=== PATIENT | male | born 1985 | race Caucasian/White ===

== ENCOUNTER 2018-11-11 11:03 | Inpatient (IN) | payer MEDICARE, OTHER, SELFPAY ==
[2018-11-11] VITALS (13 sets, daily range): BP systolic 114–144; BP diastolic 66–79; PULSE 103–118; RESP 16–26; TEMP 36.9–37.2; O2SAT 92–100; BMI 40.6; BMI 40.7; BMI 46.9
--- NOTE | 2018-11-11 11:25 | EKG12_ITS ---
Test Reason : Blood Pressure : / mmHG Vent. Rate : 104 BPM Atrial Rate : 104 BPM P-R Int : 142 ms QRS Dur : 078 ms QT Int : 328 ms P-R-T Axes : 068 076 079 degrees QTc Int : 431 ms Sinus tachycardia Nonspecific T wave abnormality Abnormal ECG Confirmed by ELIJAH RAE, ROMI ([id number]), society editor MACKENZIE OLEARY ([id number]) on 11/15/2018 10:58:55 AM Referred By: JUAN Confirmed By:ROMI NAVA MD
--- NOTE | 2018-11-11 11:30 | NURSING ---
NO OLD EKGS
[2018-11-11 12:30] LABS: Absolute Lymphocyte Count 1.64 X10^3/ul (0.83-4.51); Absolute Neutrophil Count 13.4 X10^3/uL (2.0-7.7); Basophil# 0.04 X10^3/uL; Basophil% 0.2 % (0-1); Eosinophil# 0.02 X10^3/uL; Eosinophils% 0.1 % (0-5); Hemoglobin 15.3 g/dl (13.0-16.5); Lymphocyte # 1.64 X10^3/ul (4.0); Lymphocyte % 10.1 % (19-41); Mean Corp Hgb Conc 33.3 g/gl (32-36); Mean Corpuscular Hgb 28.3 pg (27.0-32.0); Mean Platelet Vol. 11.2 fl (6.2-12.0); Monocyte# 1.14 X10^3/uL; Neutrophil # 13.36 X10^3/uL (2.7-7.7); Neutrophil % 82.4 % (47-70); Platelet Count 226 K/mm3 (150-450); RBC Distribution Width CV 15.6 % (11.6-14.6); RBC Distribution Width SD 48.3 fl (35.1-43.9); Red Blood Count 5.41 M/mm3 (4.6-6.2); White Blood Count 16.2 K/mm3 (4.4-11.0)
[2018-11-11 12:32] LABS: POSITIVE COUNT NO; POSITIVE DIFFERENTIAL NO; POSITIVE MORPHOLOGY NO
--- NOTE | 2018-11-11 12:47 | ED.VIS.GEN ---
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 He presents with redness to his left foot, leg with erythema medial aspect of the left thigh to groin. He reports documented temperature of 103.0 ?F. He did report chills. They were not shaking chills. He denies HEENT symptoms. He denies cardiac or respiratory symptoms. He denies vomiting or diarrhea. He does self cath. He is not diabetic. He did not note any lesions between his toes. Does have sores on his leg, however. 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 Denies: Sweats, Weight loss Eyes: Denies: Visual changes - bilaterally, Blurred Vision - bilaterally, Diplopia ENT: Denies: Rhinorrhea, Sore throat Cardiovascular: Denies: Chest pain, Palpitations, Heart racing Respiratory: Denies: Dyspnea, Cough, Dyspnea on exertion, Orthopnea, Paroxysmal nocturnal dyspnea Gastrointestinal: Denies: Abdominal pain, Nausea, Vomiting, Diarrhea, Melena, Hematochezia Genitourinary: Reports: - - Recent self caths. Denies: Dysuria, Hematuria, Frequency Musculoskeletal: Reports: Swelling - Left leg. Denies: Myalgias, Arthralgias, Neck pain, Back pain, Extremity Pain Skin: Reports: Rash, Wounds Neurological: Denies: Headache, Weakness, Numbness Hematologic: Denies: Easy bruising, Easy bleeding Allergy: Denies: Uticaria Physical Exam Vital Signs/Narrative: Vital Signs Temp Pulse Resp BP Pulse Ox 11/11/18 11:52 98.8 F 96 11/11/18 11:06 98.9 F 110 H 18 130/79 H 99 Inital Vital Signs reviewed: Yes General: Well nourished, Well developed, No Acute Distress Head: Normocephalic, Atraumatic Eyes: Perrl, EOMI ENT: Moist mucous membranes, No rhinorrhea Neck: Supple, Nontender Cardiovascular: Regular rhythm, No murmurs, Normal S1, Normal S2, Tachycardia Respiratory: No distress, CTA bilaterally, Chest nontender Abdomen: Soft, Nontender, Nondistended, Normal bowel sounds Back: Nontender, Normal Inspection Extremities: Nontender, No edema, - - There is swelling of the left lower extremity compared to the right. There is evidence of cellulitis involving the left leg and foot with red this medial aspect of the left thigh. There is shotty lymph nodes noted. There is no tenderness since he is a sensate secondary to cavernous spinal lesion that required operative intervention. There are sores on his leg posterior side and heel. Skin: Normal color, No rash Neurological: Alert, Oriented x3, Cranial nerves II-XII grossly intact, Normal Strength, Normal Sensation Psychological: Normal affect, Normal Mood Diagnostic/Tx/Re-eval Laboratory Results 11/11/18 11/11/18 11/11/18 12:15 12:15 12:15 WBC 16.2 H RBC 5.41 Hgb 15.3 Hct 46.0 MCV 85.0 MCH 28.3 MCHC 33.3 RDW 15.6 H RDW Differential 48.3 H Plt Count 226 MPV 11.2 Immature Gran % (Auto) 0.200 Neut % (Auto) 82.4 H Lymph % (Auto) 10.1 L [place] % (Auto) 7.0 Eos % (Auto) 0.1 Baso % (Auto) 0.2 Absolute Neuts (auto) 13.4 H Absolute Lymphs (auto) 1.64 Total Counted Not Reportable PT Cancelled INR Cancelled APTT Cancelled Sodium Cancelled Potassium Cancelled Chloride Cancelled Carbon Dioxide Cancelled Anion Gap Cancelled BUN Cancelled Creatinine Cancelled Estim Creat Clear Calc Cancelled Est GFR (MDRD) Af Amer Cancelled Est GFR (MDRD) Non-Af Cancelled BUN/Creatinine Ratio Cancelled Glucose Cancelled Lactic Acid Calcium Cancelled Total Bilirubin Cancelled AST Cancelled ALT Cancelled Alkaline Phosphatase Cancelled Total Protein Cancelled Albumin Cancelled Globulin Cancelled Albumin/Globulin Ratio Cancelled Urine Color Urine Clarity Urine pH Ur Specific [place] Urine Protein Urine Glucose (UA) Urine Ketones Urine Occult Blood Urine Nitrite Urine Bilirubin Urine Urobilinogen Ur Leukocyte Esterase Urine RBC Urine WBC Ur Squamous Epith Cells Urine Bacteria Urine Mucus 11/11/18 11/11/18 11/11/18 12:15 12:45 14:50 WBC RBC Hgb Hct MCV MCH MCHC RDW RDW Differential Plt Count MPV Immature Gran % (Auto) Neut % (Auto) Lymph % (Auto) [place] % (Auto) Eos % (Auto) Baso % (Auto) Absolute Neuts (auto) Absolute Lymphs (auto) Total Counted PT INR APTT Sodium Potassium Chloride Carbon Dioxide Anion Gap BUN Creatinine Estim Creat Clear Calc Est GFR (MDRD) Af Amer Est GFR (MDRD) Non-Af BUN/Creatinine Ratio Glucose Lactic Acid Cancelled 1.0 Calcium Total Bilirubin AST ALT Alkaline Phosphatase Total Protein Albumin Globulin Albumin/Globulin Ratio Urine Color Yellow Urine Clarity Sl. Cloudy Urine pH 5.0 Ur Specific [place] 1.015 Urine Protein Negative Urine Glucose (UA) Normal Urine Ketones 5 H Urine Occult Blood 150 H Urine Nitrite Negative Urine Bilirubin Negative Urine Urobilinogen 1 H Ur Leukocyte Esterase 500 H Urine RBC 0-5 SEEN Urine WBC 0-5 SEEN Ur Squamous Epith Cells 0 SEEN Urine Bacteria 1+ Urine Mucus 0 SEEN 11/11/18 11/11/18 14:50 14:50 WBC RBC Hgb Hct MCV MCH MCHC RDW RDW Differential Plt Count MPV Immature Gran % (Auto) Neut % (Auto) Lymph % (Auto) [place] % (Auto) Eos % (Auto) Baso % (Auto) Absolute Neuts (auto) Absolute Lymphs (auto) Total Counted PT 15.2 H INR 1.2 APTT 30.0 Sodium 135 L Potassium 3.7 Chloride 102 Carbon Dioxide 26.0 Anion Gap 7 BUN 7 Creatinine 0.40 L Estim Creat Clear Calc 282.92 Est GFR (MDRD) Af Amer 314 Est GFR (MDRD) Non-Af 259 BUN/Creatinine Ratio 17.5 Glucose 139 H Lactic Acid Calcium 8.5 Total Bilirubin 0.60 AST 29 ALT 87 H Alkaline Phosphatase 120 H Total Protein 7.1 Albumin 3.1 L Globulin 4.0 Albumin/Globulin Ratio 0.8 L Urine Color Urine Clarity Urine pH Ur Specific [place] Urine Protein Urine Glucose (UA) Urine Ketones Urine Occult Blood Urine Nitrite Urine Bilirubin Urine Urobilinogen Ur Leukocyte Esterase Urine RBC Urine WBC Ur Squamous Epith Cells Urine Bacteria Urine Mucus - Medical Decision Making With documented fever of 103.0 degrees at home, tachycardia and evidence of infection sepsis work-up was undertaken including lactate and blood cultures. He was started on vancomycin for strep and staph coverage. Patient has a 22-gauge Angiocath in place. Unable to draw blood. Femoral pulses not palpable right or left side. Reluctant to use left side because of extensive cellulitis. Attempt to place right subclavian line was unsuccessful. Buried needle to help and only able to hit the clavicle. Unable to go under clavicle. Subclavian was aborted. Using ultrasound guidance to visualize IJ was unsuccessful. Vessel very small and easily compressible. Ultrasound was used to obtain blood from the right femoral artery/vein. Line was not placed because of concern for infection and because the artery lies anterior the vein. Patient has sepsis secondary to cellulitis. Hospitalist been called for admission. PICC line nurse will be in this evening at approximately [address] line. Patient states she has had PICC line placed in the past when he is required admission. ED Disposition - Plan for ED Patient: Disposition: Acute Care Hospital [facility] Diagnosis: Cellulitis of left lower extremity, Sepsis, Paraplegia T7, Hyperglycemia Referrals: NOT,DEFINED [NON-STAFF] -
[2018-11-11 12:51] LABS: Mucous, Urine 0 SEEN /hpf (<or=2+); Squamous Epithelial Cells - UA 0 SEEN /hpf (0-5)
[2018-11-11 13:06] LABS: Color, Urine Yellow (Yellow); Glucose, Dipstick Normal (Normal); Ketone-Dipstick 5 mg/dl (Negative); Leukocyte Esterase-Dipstick 500 /ul (Negative); Nitrite-Dipstick Negative (Negative); Occult Blood-Urine 150 /ul (Negative); Protein-Dipstick Negative (Negative); Specific Gravity, Urine 1.015 (1.002-1.030); Urine Bilirubin Dipstick Negative (Negative); Urine Clarity Sl. Cloudy (Clear); Urine Urobilinogen 1 mg/dl (Normal)
[2018-11-11 13:15] LABS: Bacteria 1+ /hpf (None Seen); Red Blood Cells-Urine 0-5 SEEN /hpf (0-5); White Blood Cells 0-5 SEEN /hpf (0-5)
[2018-11-11 15:17] LABS: International Normalized Ratio 1.2; Prothrombin Time (Protime)PT. 15.2 SECONDS (11.7-14.9)
[2018-11-11 15:23] LABS: ALB/GLOB Ratio 0.8 RATIO (0.9-2.4); AST(SGOT) 29 U/L (15-37); Alanine Aminotransfer ALT/SGPT 87 U/L (16-61); Albumin, Serum 3.1 g/dL (3.2-5.0); Alkaline Phosphatase 120 U/L (45-117); Anion Gap 7 (5-15); BUN 7 mg/dL (7-18); BUN/Creat Ratio 17.5 RATIO (10-20); Calcium,Total 8.5 mg/dL (8.5-10.1); Chloride 102 mmol/L (98-107); EST Glomerular Filtration Rate 259 mL/min (>60); Est Glom Filt Rate - Afr Amer 314 mL/min (>60); Estimated Creatinine Clearance 282.92 ml/min; Glucose 139 mg/dL (74-106); Potassium 3.7 mmol/L (3.5-5.1); Protein, Total 7.1 g/dL (6.4-8.2); Sodium Level 135 mmol/L (136-145)
--- NOTE | 2018-11-11 16:03 | CASEMGMT ---
RN CM Assessment Introduced role of RN CM to patient, patient mother and sister in law at bedside.? Patient is alert, oriented and able?to participate in RN CM Assessment. ?Care providers, pharmacy, and demographics verified. Presentation: Redness to left foot w/erythema Lt thigh to groin, Fever. Decubitus Ulcer to coccyx. Admit Dx: LLE Cellulitis Re-Admit: No Barriers/Issues: Patient was going to the wound Ctr at [place] and then at [place]. States lost his insurance and last went to the wound ctr 1yr ago. Has been Paraplegic 9yrs. Self Caths. +smokes, denies ETOH/Illegal drug use. PCP: None, states would like a list Specialists: None [facility] Benef[facility]:?Yes LNOK: Sister in Law Susi Portillo # [phone] LW/HPOA: None, Declines offered information Living Arrangements:? [place] alone in a SS Home, no steps to enter ADL?s: WC Bound, Independent with all ADL's but does get assistance with getting dressed by [employer] 7days/week. 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 Natalio Briseno RNCM
--- NOTE | 2018-11-11 16:06 | PCM.HP.STD ---
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 The patient is a 33 year old M who presents the emergency room due to increasing left lower extremity redness and fever. He reports a T-max of 103 Fahrenheit at home. Patient has chronic lower extremity wounds. He also reports within the past 3 months he has developed a coccyx decubitus ulcer. He reports it had formerly healed up but he is no longer following with wound center due to no insurance coverage. Patient reports that his left lower extremity redness has significantly worsened over the past few days. He denies any known drainage from his wounds. He has a history of paraplegia secondary to cavernous spine lesion. He has been paraplegic for 9 years. He does live alone and reports he manages well. He denies other medical history. Past Medical History Past Medical History (Chronic Problems): Chronic Problems 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) Allergies No Known Allergies Allergy (Verified 11/11/18 11:08) Home Medications: Ambulatory Orders Medication Instructions Recorded NK 11/11/18 Surgical History: - - Spine surgery Psychiatric History: No pertinent psych hx Lives: Alone Smoking Status: Current every day smoker Tobacco Use: Cigarettes Alcohol: None Drugs: None - *Family History Maternal History Items: Hypertension Paternal History Items: - - Denies known paternal medical history including cardiac history. Review of Systems Constitutional: Reports: Chills, Fever HEENT: Denies: Head Aches, Sinus Congestion, Sinus Drainage Cardiovascular: Reports: Edema - LLE. Denies: Chest Pain, Palpitations Respiratory: Denies: Cough, Shortness of breath at rest, Sputum production Gastrointestinal: Denies: Abdominal Pain, Constipation, Diarrhea, Nausea, Vomiting Genitourinary: Reports: - - Self-caths. Denies: Dysuria, Hematuria, Incontinence Musculoskeletal: Denies: Joint Pain, Joint Tenderness Skin: Reports: - - Chronic lower extremity wounds, bilateral ischial wounds. Left lower extremity. Psychiatric: Denies: Anxiety, Depression, Homicidal Ideations, Suicidal Ideations Hematologic/ Lymphatic: Denies: Easy Bruising, Easy Bleeding VTE Information - Inpt Only VTE Present on Admission: No VTE Mechan Device Prophylaxis: None VTE Pharm Prophylaxis ordered?: Yes Patient Problems: Active and Suspected Problems Cellulitis of left lower extremity (Acute) Sepsis (Acute) Hyperglycemia (Acute) - Physical Exam General: Alert, Oriented x3, Cooperative HEENT: Atraumatic, PERRLA, EOMI, Normocephalic Neck: Supple, No JVD, Negative Carotid Bruits Lungs: Clear to auscultation, Diminished Cardiovascular: Regular Rhythm, Normal S1, Normal S2, No murmurs, Tachycardic Abdomen: Bowel Sounds Present, Soft, Non Tender, Non-Distended, Obese Extremities: No clubbing, No cyanosis, Capillary Refill Less than 3 Seconds, Edema - LLE, non-pittin Skin: - - Left lower extremity diffuse erythema from foot/ankle extending up the back of the thigh to bottom of buttock area. Multiple wounds including right lateral ankle, left lateral calf, left heel and bilateral ischial wounds. These do not appear acutely infected or necrotic. Musculoskeletal: No Tenderness to Palpation of Joints or Extremities Neurological: Cranial nerves II-XII grossly intact, Neuro grossly intact, - - Chronic paraplegia. Psych/Mental Status: Normal Affect, Appropriate Vital Signs Temp Pulse Resp BP Pulse Ox 99 F 106 H 26 H 131/66 H 96 11/11/18 15:54 11/11/18 15:39 11/11/18 15:39 11/11/18 15:39 11/11/18 15:39 Oxygen Delivery Method Room Air Weight: 300 lb Body Mass Index (BMI) 40.6 Laboratory Tests Past 24 Hrs 11/11/18 11/11/18 11/11/18 12:15 12:15 12:15 WBC 16.2 H RBC 5.41 Hgb 15.3 Hct 46.0 MCV 85.0 MCH 28.3 MCHC 33.3 RDW 15.6 H RDW Differential 48.3 H Plt Count 226 MPV 11.2 Immature Gran % (Auto) 0.200 Neut % (Auto) 82.4 H Lymph % (Auto) 10.1 L [place] % (Auto) 7.0 Eos % (Auto) 0.1 Baso % (Auto) 0.2 Absolute Neuts (auto) 13.4 H Absolute Lymphs (auto) 1.64 Total Counted Not Reportable PT Cancelled INR Cancelled APTT Cancelled Sodium Cancelled Potassium Cancelled Chloride Cancelled Carbon Dioxide Cancelled Anion Gap Cancelled BUN Cancelled Creatinine Cancelled Estim Creat Clear Calc Cancelled Est GFR (MDRD) Af Amer Cancelled Est GFR (MDRD) Non-Af Cancelled BUN/Creatinine Ratio Cancelled Glucose Cancelled Lactic Acid Calcium Cancelled Total Bilirubin Cancelled AST Cancelled ALT Cancelled Alkaline Phosphatase Cancelled Total Protein Cancelled Albumin Cancelled Globulin Cancelled Albumin/Globulin Ratio Cancelled Urine Color Urine Clarity Urine pH Ur Specific [place] Urine Protein Urine Glucose (UA) Urine Ketones Urine Occult Blood Urine Nitrite Urine Bilirubin Urine Urobilinogen Ur Leukocyte Esterase Urine RBC Urine WBC Ur Squamous Epith Cells Urine Bacteria Urine Mucus 11/11/18 11/11/18 11/11/18 12:15 12:45 14:50 WBC RBC Hgb Hct MCV MCH MCHC RDW RDW Differential Plt Count MPV Immature Gran % (Auto) Neut % (Auto) Lymph % (Auto) [place] % (Auto) Eos % (Auto) Baso % (Auto) Absolute Neuts (auto) Absolute Lymphs (auto) Total Counted PT INR APTT Sodium Potassium Chloride Carbon Dioxide Anion Gap BUN Creatinine Estim Creat Clear Calc Est GFR (MDRD) Af Amer Est GFR (MDRD) Non-Af BUN/Creatinine Ratio Glucose Lactic Acid Cancelled 1.0 Calcium Total Bilirubin AST ALT Alkaline Phosphatase Total Protein Albumin Globulin Albumin/Globulin Ratio Urine Color Yellow Urine Clarity Sl. Cloudy Urine pH 5.0 Ur Specific [place] 1.015 Urine Protein Negative Urine Glucose (UA) Normal Urine Ketones 5 H Urine Occult Blood 150 H Urine Nitrite Negative Urine Bilirubin Negative Urine Urobilinogen 1 H Ur Leukocyte Esterase 500 H Urine RBC 0-5 SEEN Urine WBC 0-5 SEEN Ur Squamous Epith Cells 0 SEEN Urine Bacteria 1+ Urine Mucus 0 SEEN 11/11/18 11/11/18 14:50 14:50 WBC RBC Hgb Hct MCV MCH MCHC RDW RDW Differential Plt Count MPV Immature Gran % (Auto) Neut % (Auto) Lymph % (Auto) [place] % (Auto) Eos % (Auto) Baso % (Auto) Absolute Neuts (auto) Absolute Lymphs (auto) Total Counted PT 15.2 H INR 1.2 APTT 30.0 Sodium 135 L Potassium 3.7 Chloride 102 Carbon Dioxide 26.0 Anion Gap 7 BUN 7 Creatinine 0.40 L Estim Creat Clear Calc 282.92 Est GFR (MDRD) Af Amer 314 Est GFR (MDRD) Non-Af 259 BUN/Creatinine Ratio 17.5 Glucose 139 H Lactic Acid Calcium 8.5 Total Bilirubin 0.60 AST 29 ALT 87 H Alkaline Phosphatase 120 H Total Protein 7.1 Albumin 3.1 L Globulin 4.0 Albumin/Globulin Ratio 0.8 L Urine Color Urine Clarity Urine pH Ur Specific [place] Urine Protein Urine Glucose (UA) Urine Ketones Urine Occult Blood Urine Nitrite Urine Bilirubin Urine Urobilinogen Ur Leukocyte Esterase Urine RBC Urine WBC Ur Squamous Epith Cells Urine Bacteria Urine Mucus Assessment/Plan All Active Problems Cellulitis of left lower extremity (Acute) Sepsis (Acute) Hyperglycemia (Acute) 1. Acute sepsis secondary to left lower extremity cellulitis in the context of multiple wounds-patient with temperature 103F prior to admission, tachycardia, leukocytosis. Urinalysis unremarkable. Left lower extremity with diffuse redness and chronic wounds. Obtain duplex ultrasound left lower extremity. Wound RN consult. IV vancomycin. Frequent position changes. 2. Multiple chronic wounds including bilateral ischial, right lateral ankle, left heel and left lateral calf-wound RN consult as noted above. Frequent position changes and offloading of heels. Previously followed with wound center and is now unable due to no insurance. Case management consult for further discharge planning. 3. 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 Morbid obesity-encouraged diet and lifestyle modifications. Nutrition consult. 5. Tobacco dependence-encourage smoking cessation. Nicotine gum PRN. DVT prophylaxis-Lovenox subcu This patient was seen by ONUR Potts under the supervision of Dr. Suarez.
--- NOTE | 2018-11-11 16:07 | NURSING ---
307 LLE CELLULITIS WHITE
[2018-11-11 17:52] LABS: Magnesium 2.1 mg/dL (1.6-2.6)
[2018-11-11 18:07] LABS: Hemoglobin A1c 7.6 % (4.2-6.3)
[2018-11-11] MEDS: 0.9% NaCl Peripheral Flush Adult/Peds IV (18:09)
[2018-11-11] MEDS: 0.9% Normal Saline 1,000 ML 125 ML IV (18:09)
--- NOTE | 2018-11-11 18:28 | VDLE_ITS ---
Reason For Study: Swelling RIGHT LEFT CFV is compressible, spontaneous, phasic, GSV is normal. competent and demonstrates normal CFV is compressible, spontaneous, phasic, augmentation. competent, and demonstrates normal augmentation. FV is compressible, spontaneous, phasic, competent and demonstrates normal augmentation. POP V is compressible, spontaneous, phasic, competent and demonstrates normal augmentation. T/P Trunk is compressible. PTV is compressible. LT PerV is compressible. Interpretation Summary There is no evidence of left lower extremity deep vein thrombosis. Left greater saphenous vein appears patent and compressible segmentally. Normal flow patterns right common femoral vein Ordering Physician: Yanni Suarez Performed By: Laury Gamez, JESSICA, RVT
--- NOTE | 2018-11-11 18:30 | PCM.RX.CS ---
Consult Pharmacy has been consulted to manage selected antiobiotic: Vancomycin Type of Consult: New start Suspected Infection: Skin/Soft tissue Labs: Sodium 135 mmol/L (136-145) L 11/11/18 14:50 Potassium 3.7 mmol/L (3.5-5.1) 11/11/18 14:50 Chloride 102 mmol/L (98-107) 11/11/18 14:50 Carbon Dioxide 26.0 mmol/L (21.0-32.0) 11/11/18 14:50 Anion Gap 7 (5-15) 11/11/18 14:50 BUN 7 mg/dL (7-18) 11/11/18 14:50 Creatinine 0.40 mg/dL (0.70-1.30) L 11/11/18 14:50 Est GFR (MDRD) Af Amer 314 mL/min (>60) 11/11/18 14:50 Est GFR (MDRD) Non-Af 259 mL/min (>60) 11/11/18 14:50 BUN/Creatinine Ratio 17.5 RATIO (10-20) 11/11/18 14:50 Glucose 139 mg/dL (74-106) H 11/11/18 14:50 Estimated Creatinine Clearance: 282 Goal Trough: 10-15 mcg/mL Pharmacy Plan for Drug Dosing: Pharmacy Service will continue to monitor and adjust dosing as required. Loading dose of 2000mg given in ED Calculated dose of 1750mg a12h to start 11/12 0000 to maintain trough level of 10-15 Trough ordered for 07/14 2330 Follow-Up Labs: Trough Vancomycin
[2018-11-11] MEDS: Enoxaparin 150 MG/ML Syringe SC (18:41)
--- NOTE | 2018-11-11 20:26 | NURSING ---
Amparo from [employer] here to place PICC line. When I reviewed pt's orders I saw no order to insert a PICC. Amparo and I discussed this and she also mentioned that in reading over pt's chart it was noted in physicians' reports that he originally had a temp of 103.0, had acute sepsis, and that blood cultures were pending. Amparo and I spoke with Dr. Bloom who was here on [facility]. Amparo mentioned that a central line is really contraindicated at this time based on the facts listed above and it is best to wait until there are negative blood cultures. She discussed putting in an extra peripheral line in case we would lose the #22 gauge that pt already has. Dr. Bloom felt this was reasonable so Amparo inserted one. Amparo also indicated that if they have trouble drawing labs in the am, we can call [facility] [employer] to have them draw. You can review Amparo's written documentation on [employer] form to verify above information.
[2018-11-12] VITALS (12 sets, daily range): BP systolic 133–147; BP diastolic 69–94; PULSE 90–132; RESP 16–18; TEMP 36.4–36.9; O2SAT 92–97
[2018-11-12] MEDS: 0.9% Normal Saline 1,000 ML 125 ML IV (04:37)
[2018-11-12] MEDS: Acetaminophen 325 MG Tablet 650 MG PO (05:34)
[2018-11-12] MEDS: Enoxaparin 150 MG/ML Syringe SC ×2 (05:38→16:37)
[2018-11-12 06:54] LABS: Absolute Lymphocyte Count 1.27 X10^3/ul (0.83-4.51); Absolute Neutrophil Count 7.6 X10^3/uL (2.0-7.7); Basophil# 0.02 X10^3/uL; Basophil% 0.2 % (0-1); Eosinophil# 0.07 X10^3/uL; Eosinophils% 0.7 % (0-5); Hemoglobin 13.9 g/dl (13.0-16.5); Lymphocyte # 1.27 X10^3/ul (4.0); Lymphocyte % 12.6 % (19-41); Mean Corp Hgb Conc 32.3 g/gl (32-36); Mean Corpuscular Hgb 27.5 pg (27.0-32.0); Mean Platelet Vol. 11.7 fl (6.2-12.0); Monocyte# 1.11 X10^3/uL; Neutrophil # 7.61 X10^3/uL (2.7-7.7); Neutrophil % 75.3 % (47-70); Platelet Count 209 K/mm3 (150-450); RBC Distribution Width CV 15.2 % (11.6-14.6); RBC Distribution Width SD 46.8 fl (35.1-43.9); Red Blood Count 5.06 M/mm3 (4.6-6.2); White Blood Count 10.1 K/mm3 (4.4-11.0)
[2018-11-12 06:56] LABS: POSITIVE COUNT NO; POSITIVE DIFFERENTIAL NO; POSITIVE MORPHOLOGY NO
[2018-11-12 07:15] LABS: Anion Gap 6 (5-15); BUN 6 mg/dL (7-18); BUN/Creat Ratio 12.2 RATIO (10-20); Calcium,Total 7.6 mg/dL (8.5-10.1); Chloride 102 mmol/L (98-107); Creatinine, Serum 0.49 mg/dL (0.70-1.30); EST Glomerular Filtration Rate 204 mL/min (>60); Est Glom Filt Rate - Afr Amer 247 mL/min (>60); Estimated Creatinine Clearance 230.95 ml/min; Glucose 139 mg/dL (74-106); Potassium 3.6 mmol/L (3.5-5.1); Sodium Level 135 mmol/L (136-145)
--- NOTE | 2018-11-12 11:01 | NURSING ---
wound photo: bilateral gluteal crease
--- NOTE | 2018-11-12 11:05 | NURSING ---
wound photo: left gluteal crease
--- NOTE | 2018-11-12 11:06 | NURSING ---
wound photo: right lateral ankle
--- NOTE | 2018-11-12 11:08 | NURSING ---
wound photo: left lateral lower leg
--- NOTE | 2018-11-12 11:09 | NURSING ---
wound photo: left lateral heel
[2018-11-12 12:39] LABS: Probe Check PASS; Staph aureus DNA By PCR POSITIVE (Negative)
[2018-11-12 12:40] LABS: M R Staph aureus DNA By PCR POSITIVE (Negative)
--- NOTE | 2018-11-12 14:10 | CASEMGMT ---
RN CM NOTE: Pt provided with list of local PCP's in network with Richardcassandra. Mario YUN RN CM
--- NOTE | 2018-11-12 14:35 | PN_ITS ---
<Dena Rich - Last Filed: 11/12/18 14:46> Patient Problems: Active and Suspected Problems Cellulitis of left lower extremity (Acute) Sepsis (Acute) Hyperglycemia (Acute) Subjective: Patient seen and examined. Left lower extremity redness improved. Denies fever, chills. - Physical Exam General: Alert, Oriented x3, Cooperative HEENT: Atraumatic, PERRLA, EOMI, Normocephalic Neck: Supple, No JVD, Negative Carotid Bruits Lungs: Clear to auscultation, Diminished Cardiovascular: Regular rate, Regular Rhythm, Normal S1, Normal S2, No murmurs Abdomen: Bowel Sounds Present, Soft, Non Tender, Non-Distended, Obese Extremities: No clubbing, No cyanosis, No edema, Capillary Refill Less than 3 Seconds Skin: - - Left lower extremity diffuse erythema from foot/ankle extending up the back of the thigh to bottom of buttock area. Multiple wounds including right lateral ankle, left lateral calf, left heel and bilateral gluteal crease wounds. These do not appear acutely infected or necrotic. Left lower extremity diffuse erythema improving. Musculoskeletal: No Tenderness to Palpation of Joints or Extremities Neurological: Cranial nerves II-XII grossly intact, Neuro grossly intact, - - Chronic paraplegia Psych/Mental Status: Normal Affect, Appropriate Vital Signs Temp Pulse Resp BP Pulse Ox 97.6 F L 101 H 16 141/85 H 97 11/12/18 14:23 11/12/18 14:23 11/12/18 14:23 11/12/18 14:23 11/12/18 14:23 Oxygen Delivery Method Room Air Weight: 346 lb 2.012 oz Body Mass Index (BMI) 46.9 Intake and Output for Last 24 Hours 11/10/18 11/11/18 11/12/18 23:59 23:59 23:59 Intake Total 3666 / 3666 Output Total 1375 / 1375 Balance 2291 / 2291 Microbiology Past 72 Hours 11/12/18 10:30 Gram Stain - Final Wound - Heel, Left 11/11/18 12:45 Urine Culture - Preliminary Urine, Clean Catch Staphylococcus species Laboratory Tests Past 24 Hrs 11/11/18 11/11/18 11/11/18 12:15 14:50 14:50 WBC RBC Hgb Hct MCV MCH MCHC RDW RDW Differential Plt Count MPV Immature Gran % (Auto) Neut % (Auto) Lymph % (Auto) [place] % (Auto) Eos % (Auto) Baso % (Auto) Absolute Neuts (auto) Absolute Lymphs (auto) Total Counted PT INR APTT Sodium 135 L Potassium 3.7 Chloride 102 Carbon Dioxide 26.0 Anion Gap 7 BUN 7 Creatinine 0.40 L Estim Creat Clear Calc 282.92 Est GFR (MDRD) Af Amer 314 Est GFR (MDRD) Non-Af 259 BUN/Creatinine Ratio 17.5 Glucose 139 H Hemoglobin A1c 7.6 H Lactic Acid 1.0 Calcium 8.5 Magnesium Total Bilirubin 0.60 AST 29 ALT 87 H Alkaline Phosphatase 120 H Total Protein 7.1 Albumin 3.1 L Globulin 4.0 Albumin/Globulin Ratio 0.8 L S.aureus Protein A PCR MRSA (PCR) 11/11/18 11/11/18 11/12/18 14:50 14:50 05:45 WBC 10.1 RBC 5.06 Hgb 13.9 Hct 43.0 MCV 85.0 MCH 27.5 MCHC 32.3 RDW 15.2 H RDW Differential 46.8 H Plt Count 209 MPV 11.7 Immature Gran % (Auto) 0.200 Neut % (Auto) 75.3 H Lymph % (Auto) 12.6 L [place] % (Auto) 11.0 H Eos % (Auto) 0.7 Baso % (Auto) 0.2 Absolute Neuts (auto) 7.6 Absolute Lymphs (auto) 1.27 Total Counted Not Reportable PT 15.2 H INR 1.2 APTT 30.0 Sodium Potassium Chloride Carbon Dioxide Anion Gap BUN Creatinine Estim Creat Clear Calc Est GFR (MDRD) Af Amer Est GFR (MDRD) Non-Af BUN/Creatinine Ratio Glucose Hemoglobin A1c Lactic Acid Calcium Magnesium 2.1 Total Bilirubin AST ALT Alkaline Phosphatase Total Protein Albumin Globulin Albumin/Globulin Ratio S.aureus Protein A PCR MRSA (PCR) 11/12/18 11/12/18 05:45 10:30 WBC RBC Hgb Hct MCV MCH MCHC RDW RDW Differential Plt Count MPV Immature Gran % (Auto) Neut % (Auto) Lymph % (Auto) [place] % (Auto) Eos % (Auto) Baso % (Auto) Absolute Neuts (auto) Absolute Lymphs (auto) Total Counted PT INR APTT Sodium 135 L Potassium 3.6 Chloride 102 Carbon Dioxide 27.0 Anion Gap 6 BUN 6 L Creatinine 0.49 L Estim Creat Clear Calc 230.95 Est GFR (MDRD) Af Amer 247 Est GFR (MDRD) Non-Af 204 BUN/Creatinine Ratio 12.2 Glucose 139 H Hemoglobin A1c Lactic Acid Calcium 7.6 L Magnesium Total Bilirubin AST ALT Alkaline Phosphatase Total Protein Albumin Globulin Albumin/Globulin Ratio S.aureus Protein A PCR POSITIVE H MRSA (PCR) POSITIVE H Medical Necessity - Tobacco Use Smoking Status: Current every day smoker Tobacco Use: Cigarettes Assessment/Plan All Active Problems Cellulitis of left lower extremity (Acute) Sepsis (Acute) Hyperglycemia (Acute) 1. Acute sepsis secondary to acute left lower extremity cellulitis in the context of multiple chronic wounds-patient with temperature 103F prior to admission, tachycardia, leukocytosis. Urinalysis unremarkable, UA with staph species low colony count. Left lower extremity with diffuse redness and chronic wounds. Duplex ultrasound left lower extremity pending. Wound RN consult. IV vancomycin and IV Zosyn. Frequent position changes. Wound culture left heel pending. Blood cultures pending. Continue dressing changes per wound RN orders. MSSA and MRSA PCR positive. 2. Multiple chronic wounds including bilateral gluteal crease, right lateral ankle, left heel and left lateral calf-wound RN consult as noted above. Frequent position changes and offloading of heels. Previously followed with wound center. Case management consult for further discharge planning. 3. 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 Morbid obesity-encouraged diet and lifestyle modifications. Nutrition consult. 5. Tobacco dependence-encourage smoking cessation. Nicotine gum PRN. 6. New diagnosis type 2 diabetes mellitus-hemoglobin A1c 7.6%. Accu-Cheks before meals at bedtime with sliding scale insulin. Begin metformin at discharge. DVT prophylaxis-Lovenox subcu This patient was seen by ONUR Potts under the supervision of Dr. Mandujano. <Gerry Mandujano - Last Filed: 11/12/18 17:22> Subjective: Seen and examined. The patient has a history of paraplegia for about 9 years after he had surgery of lumbar cavernous hemangioma. Patient also history of pilonidal sinus surgery? Patient has chronic ulcer of bilateral gluteal region. Wound inspected in the presence of wound nurse. K3.6. Temperature 103 Fahrenheit on admission. Objective: General: Alert, Oriented x3, Cooperative HEENT: Atraumatic, PERRLA, EOMI, Normocephalic Neck: Supple, No JVD, Negative Carotid Bruits Lungs: Clear to auscultation, air entry is diminished bilaterally in the lower half posteriorly secondary to obesity Cardiovascular: Regular rate, Regular Rhythm, Normal S1, Normal S2, No murmurs Abdomen: Bowel Sounds Present, Soft, Non Tender, Non-Distended, Obese Extremities: No clubbing, No cyanosis, No edema, Capillary Refill Less than 3 Seconds Skin: - Left lower extremity diffuse erythema, induration and thickening from foot/ankle extending up the back of the thigh to bottom of buttock area. Chronic ulcer over bilateral gluteal crease, has thin slough but mostly granulation tissue. Bilateral heel ulcer, decubitus ulcer. Musculoskeletal: Bilateral paraplegia. No sensation below baseline Neurological: Cranial nerves II-XII grossly intact, Neuro grossly intact, neurogenic bladder. Patient self catheterizes every 4 hours. No bladder filling station or or emptying. Patient minimally removes rectal stool. Psych/Mental Status: Normal Affect, Appropriate - Physical Exam Vital Signs Temp Pulse Resp BP Pulse Ox 97.6 F L 94 16 141/85 H 97 11/12/18 14:23 11/12/18 16:55 11/12/18 14:23 11/12/18 14:23 11/12/18 14:23 Oxygen Delivery Method Room Air Weight: 346 lb 2.012 oz Body Mass Index (BMI) 46.9 Intake and Output for Last 24 Hours 11/10/18 11/11/18 11/12/18 23:59 23:59 23:59 Intake Total 3666 / 3666 Output Total 1375 / 1375 Balance 2291 / 2291 Microbiology Past 72 Hours 11/12/18 10:30 Gram Stain - Final Wound - Heel, Left 11/11/18 12:45 Urine Culture - Preliminary Urine, Clean Catch Staphylococcus species Laboratory Tests Past 24 Hrs 11/11/18 11/11/18 11/12/18 12:15 14:50 05:45 WBC 10.1 RBC 5.06 Hgb 13.9 Hct 43.0 MCV 85.0 MCH 27.5 MCHC 32.3 RDW 15.2 H RDW Differential 46.8 H Plt Count 209 MPV 11.7 Immature Gran % (Auto) 0.200 Neut % (Auto) 75.3 H Lymph % (Auto) 12.6 L [place] % (Auto) 11.0 H Eos % (Auto) 0.7 Baso % (Auto) 0.2 Absolute Neuts (auto) 7.6 Absolute Lymphs (auto) 1.27 Total Counted Not Reportable Sodium Potassium Chloride Carbon Dioxide Anion Gap BUN Creatinine Estim Creat Clear Calc Est GFR (MDRD) Af Amer Est GFR (MDRD) Non-Af BUN/Creatinine Ratio Glucose Hemoglobin A1c 7.6 H Calcium Magnesium 2.1 S.aureus Protein A PCR MRSA (PCR) 11/12/18 11/12/18 05:45 10:30 WBC RBC Hgb Hct MCV MCH MCHC RDW RDW Differential Plt Count MPV Immature Gran % (Auto) Neut % (Auto) Lymph % (Auto) [place] % (Auto) Eos % (Auto) Baso % (Auto) Absolute Neuts (auto) Absolute Lymphs (auto) Total Counted Sodium 135 L Potassium 3.6 Chloride 102 Carbon Dioxide 27.0 Anion Gap 6 BUN 6 L Creatinine 0.49 L Estim Creat Clear Calc 230.95 Est GFR (MDRD) Af Amer 247 Est GFR (MDRD) Non-Af 204 BUN/Creatinine Ratio 12.2 Glucose 139 H Hemoglobin A1c Calcium 7.6 L Magnesium S.aureus Protein A PCR POSITIVE H MRSA (PCR) POSITIVE H POC Glucose 11/12/18 16:31 POC Glucose 198 H Assessment/Plan This patient was seen in conjunction with Dena STEIN. I have independently interviewed and examined the patient and reviewed pertinent history, examination findings, laboratory and plan of management. I have reviewed the note and agree with the documented findings with the few additional points. In brief, patient is admitted for abscess secondary to left lower extremity cellulitis with multiple chronic wounds on bilateral gluteal regions along with bilateral heel. Duplex ultrasound is ordered. Wound reviewed and discussed with the wound nurseVeronika. On IV vancomycin and Zosyn. MRSA PCR is positive. Paraplegia with chronic neurogenic bladder and bowel incontinence Morbid obesity I have discussed my assessment with Dena STEIN and orders have been reviewed. Code Visit Inpatient E&M: 23478 Subs Hosp L2
[2018-11-12 16:35] LABS: Bedside Glucose 198 mg/dL (70-110)
[2018-11-12] MEDS: Insulin Lispro 100 UNIT/ML INSULN.PEN SC ×2 (16:37→22:41)
--- NOTE | 2018-11-12 16:43 | PCM.HP.ID ---
Problem List (1) Cellulitis of left lower extremity Status: Acute Reason for Consult: cellulitis Consulted by: Dr. Mandujano History of Present Illness: The patient is a 33 year old M with paraplegia, chronic wounds, does not follow with doctors due to lack of insurance. Several days of LLE wound redness, pain, swelling. No pets licking his wound. No new contamination or trauma. Started to have fever/chills. Came to ED, started vanc, redness better, zosyn added. Full ROS performed and neg except as noted above. Straight cath at home, does not re-use caths. 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) Allergies/Adverse Reactions: Allergies No Known Allergies Allergy (Verified 11/11/18 11:08) Home Medications: Ambulatory Orders Medication Instructions Recorded NK 11/11/18 - Social History Tobacco Use: cigarettes Vital Signs Temp Pulse Resp BP Pulse Ox 97.6 F L 101 H 16 141/85 H 97 11/12/18 14:23 11/12/18 14:23 11/12/18 14:23 11/12/18 14:23 11/12/18 14:23 Oxygen Delivery Method Room Air Weight: 157 kg Body Mass Index (BMI) 46.9 Microbiology Past 72 Hours 11/12/18 10:30 Gram Stain - Final Wound - Heel, Left 11/11/18 12:45 Urine Culture - Preliminary Urine, Clean Catch Staphylococcus species Laboratory Tests Past 24 Hrs 11/11/18 11/11/18 11/12/18 12:15 14:50 05:45 WBC 10.1 RBC 5.06 Hgb 13.9 Hct 43.0 MCV 85.0 MCH 27.5 MCHC 32.3 RDW 15.2 H RDW Differential 46.8 H Plt Count 209 MPV 11.7 Immature Gran % (Auto) 0.200 Neut % (Auto) 75.3 H Lymph % (Auto) 12.6 L [place] % (Auto) 11.0 H Eos % (Auto) 0.7 Baso % (Auto) 0.2 Absolute Neuts (auto) 7.6 Absolute Lymphs (auto) 1.27 Total Counted Not Reportable Sodium Potassium Chloride Carbon Dioxide Anion Gap BUN Creatinine Estim Creat Clear Calc Est GFR (MDRD) Af Amer Est GFR (MDRD) Non-Af BUN/Creatinine Ratio Glucose Hemoglobin A1c 7.6 H Calcium Magnesium 2.1 S.aureus Protein A PCR MRSA (PCR) 11/12/18 11/12/18 05:45 10:30 WBC RBC Hgb Hct MCV MCH MCHC RDW RDW Differential Plt Count MPV Immature Gran % (Auto) Neut % (Auto) Lymph % (Auto) [place] % (Auto) Eos % (Auto) Baso % (Auto) Absolute Neuts (auto) Absolute Lymphs (auto) Total Counted Sodium 135 L Potassium 3.6 Chloride 102 Carbon Dioxide 27.0 Anion Gap 6 BUN 6 L Creatinine 0.49 L Estim Creat Clear Calc 230.95 Est GFR (MDRD) Af Amer 247 Est GFR (MDRD) Non-Af 204 BUN/Creatinine Ratio 12.2 Glucose 139 H Hemoglobin A1c Calcium 7.6 L Magnesium S.aureus Protein A PCR POSITIVE H MRSA (PCR) POSITIVE H - Other Studies Radiology: [] reviewed Other Studies: [] Route of nutrition/ use of supplements: [] Nutritional Intake: [] IV Site: [] Lee Catheter: [] - Physical Exam General: Alert, Oriented x3, Cooperative, No apparent distress HEENT: Atraumatic, PERRLA, EOMI Neck: Supple, No Nodes Lungs: Clear to auscultation, Normal air movement Cardiovascular: Regular rate, Regular Rhythm Abdomen: Soft, Non Tender, Non-Distended, Obese Extremities: Edema Skin: Ulcer/ Wound - cellulitis improved on LLE IV Site: Peripheral, without redness Musculoskeletal: No Tenderness to Palpation of Joints or Extremities Neurological: Cranial nerves II-XII grossly intact, - - paraplegic - Assessment/Plan Antibiotics: [] Assessment/Plan: [] Active and Suspected Problems Cellulitis of left lower extremity (Acute) Sepsis (Acute) Hyperglycemia (Acute) Cellulitis of LLE ulcer with paraplegia - fever at home, wbc improved. On vanc/zosyn given past growth. Cx here with [facility] on gram stain. Will follow, thank you.
[2018-11-12] MEDS: Glucerna Shake 120 ML LIQUID PO (16:45)
[2018-11-13] VITALS (8 sets, daily range): BP systolic 138–158; BP diastolic 78–104; PULSE 72–100; RESP 18; TEMP 36.4–37; O2SAT 94–97
[2018-11-13 00:20] LABS: Bedside Glucose 171 mg/dL (70-110)
[2018-11-13 00:29] LABS: Vancomycin, Trough Level 5.4 ug/mL (5.0-15.0)
[2018-11-13 06:35] LABS: Bedside Glucose 159 mg/dL (70-110)
[2018-11-13] MEDS: Insulin Lispro 100 UNIT/ML INSULN.PEN SC ×3 (06:38→23:01)
[2018-11-13] MEDS: Enoxaparin 150 MG/ML Syringe SC ×2 (06:38→17:15)
--- NOTE | 2018-11-13 07:11 | PCM.RX.CS ---
Consult Pharmacy has been consulted to manage selected antiobiotic: Vancomycin Type of Consult: Follow-up Suspected Infection: Sepsis, Skin/Soft tissue Prior Doses of Antibiotics Received/Current Regimen: Currently on 1750mg IV q12h Labs: Sodium 135 mmol/L (136-145) L 11/12/18 05:45 Potassium 3.6 mmol/L (3.5-5.1) 11/12/18 05:45 Chloride 102 mmol/L (98-107) 11/12/18 05:45 Carbon Dioxide 27.0 mmol/L (21.0-32.0) 11/12/18 05:45 Anion Gap 6 (5-15) 11/12/18 05:45 BUN 6 mg/dL (7-18) L 11/12/18 05:45 Creatinine 0.49 mg/dL (0.70-1.30) L 11/12/18 05:45 Est GFR (MDRD) Af Amer 247 mL/min (>60) 11/12/18 05:45 Est GFR (MDRD) Non-Af 204 mL/min (>60) 11/12/18 05:45 BUN/Creatinine Ratio 12.2 RATIO (10-20) 11/12/18 05:45 Glucose 139 mg/dL (74-106) H 11/12/18 05:45 Vancomycin Trough 5.4 ug/mL (5.0-15.0) 11/12/18 23:47 Microbiology: Microbiology 11/12/18 10:30 Wound - Heel, Left Gram Stain - Final 11/11/18 12:45 Urine, Clean Catch Urine Culture - Preliminary Staphylococcus species Weight used for dosin kg Estimated Creatinine Clearance: 230 ml/min Goal Trough: 10-15 mcg/mL Pharmacy Plan for Drug Dosing: Trough obtained before last night's dose came back as 5.4 mg/L. This was drawn about 12 hours after the previous dose was given. Recommend to increase dose to 2000mg IV q12h and draw another trough before the 4th dose tomorrow night. Pharmacy Service will continue to monitor and adjust dosing as required. Follow-Up Labs: Trough Vancomycin Labs to be done on [date and time ordered]: 11/14/18 23:30
[2018-11-13] MEDS: Glucerna Shake 120 ML LIQUID PO ×3 (09:04→16:37)
[2018-11-13 12:25] LABS: Bedside Glucose 199 mg/dL (70-110)
--- NOTE | 2018-11-13 15:19 | PN_ITS ---
<Dena Rich - Last Filed: 11/13/18 15:20> Patient Problems: Active and Suspected Problems Cellulitis of left lower extremity (Acute) Sepsis (Acute) Hyperglycemia (Acute) Subjective: Patient seen and examined. Left lower redness and swelling improved. Ultrasound left lower extremity negative for DVT. - Physical Exam General: Alert, Oriented x3, Cooperative HEENT: Atraumatic, PERRLA, EOMI, Normocephalic Neck: Supple, No JVD, Negative Carotid Bruits Lungs: Clear to auscultation, Diminished Cardiovascular: Regular rate, Regular Rhythm, Normal S1, Normal S2, No murmurs Abdomen: Bowel Sounds Present, Soft, Non Tender, Non-Distended, Obese Extremities: No clubbing, No cyanosis, No edema, Capillary Refill Less than 3 S econds Skin: - - Left lower extremity erythema from foot/ankle extending up the back of the thigh to bottom of buttock area, improved. Multiple wounds including right lateral ankle, left lateral calf, left heel and bilateral gluteal crease wounds. These do not appear acutely infected or necrotic. Musculoskeletal: No Tenderness to Palpation of Joints or Extremities Neurological: Cranial nerves II-XII grossly intact, - - Chronic paraplegia Psych/Mental Status: Normal Affect, Appropriate Vital Signs Temp Pulse Resp BP Pulse Ox 98.0 F 91 18 157/89 H 94 11/13/18 09:01 11/13/18 09:01 11/13/18 09:01 11/13/18 09:01 11/13/18 09:01 Oxygen Delivery Method Room Air Weight: 346 lb 2.012 oz Body Mass Index (BMI) 46.9 Intake and Output for Last 24 Hours 11/11/18 11/12/18 11/13/18 23:59 23:59 23:59 Intake Total 4216 / 4216 3177 / 3177 Output Total 1925 / 1925 3580 / 3580 Balance 2291 / 2291 -403 / -403 Microbiology Past 72 Hours 11/12/18 10:30 Gram Stain - Final Wound - Heel, Left Wound Culture - Preliminary Staphylococcus aureus Gram negative christiana 11/11/18 12:15 Blood Culture - Preliminary Blood Culture (Wb) - Right Hand No growth in 48 hours. 11/11/18 11:50 Blood Culture - Preliminary Blood Culture (Wb) - Anticubital Left No growth in 48 hours. 11/11/18 12:45 Urine Culture - Final Urine, Clean Catch Meth. resistant Staph. aureus Laboratory Tests Past 24 Hrs 11/12/18 23:47 Vancomycin Trough 5.4 POC Glucose 11/13/18 11/13/18 11/12/18 12:11 06:30 22:38 POC Glucose 199 H 159 H 171 H 11/12/18 16:31 POC Glucose 198 H Medical Necessity - Tobacco Use Smoking Status: Current every day smoker Tobacco Use: Cigarettes Assessment/Plan All Active Problems Cellulitis of left lower extremity (Acute) Sepsis (Acute) Hyperglycemia (Acute) 1. Acute sepsis secondary to acute left lower extremity cellulitis in the context of multiple chronic wounds-patient with temperature 103F prior to admission, tachycardia, leukocytosis. Duplex ultrasound left lower extremity negative. Wound RN consult. IV vancomycin and IV Zosyn. Frequent position changes. Wound culture left heel shows staph aureus, gram-negative christiana. Blood cultures show no growth. Continue dressing changes per wound RN orders. MSSA and MRSA PCR positive. ID consulted. Follow cultures. Anticipate discharge home tomorrow on oral antibiotics and follow-up with wound center. 2. Multiple chronic wounds including bilateral gluteal crease, right lateral ankle, left heel and left lateral calf-wound RN consult as noted above. Frequent position changes and offloading of heels. Previously followed with wound center. Case management consult for further discharge planning. 3. Acute MRSA UTI-urine culture with MRSA. Continue IV vancomycin. 4. 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 Morbid obesity-encouraged diet and lifestyle modifications. Nutrition consult. 6. Tobacco dependence-encourage smoking cessation. Nicotine gum PRN. 7. New diagnosis type 2 diabetes mellitus-hemoglobin A1c 7.6%. Accu-Cheks before meals at bedtime with sliding scale insulin. Begin metformin at discharge. DVT prophylaxis-Lovenox subcu This patient was seen by ONUR Potts under the supervision of Dr. Hernández. <Sylvia Hernández - Last Filed: 11/13/18 15:33> - Physical Exam Vital Signs Temp Pulse Resp BP Pulse Ox 98.0 F 91 18 157/89 H 94 11/13/18 09:01 11/13/18 09:01 11/13/18 09:01 11/13/18 09:01 11/13/18 09:01 Oxygen Delivery Method Room Air Weight: 346 lb 2.012 oz Body Mass Index (BMI) 46.9 Intake and Output for Last 24 Hours 11/11/18 11/12/18 11/13/18 23:59 23:59 23:59 Intake Total 4216 / 4216 3177 / 3177 Output Total 1925 / 1925 3580 / 3580 Balance 2291 / 2291 -403 / -403 Microbiology Past 72 Hours 11/12/18 10:30 Gram Stain - Final Wound - Heel, Left Wound Culture - Preliminary Staphylococcus aureus Gram negative christiana 11/11/18 12:15 Blood Culture - Preliminary Blood Culture (Wb) - Right Hand No growth in 48 hours. 11/11/18 11:50 Blood Culture - Preliminary Blood Culture (Wb) - Anticubital Left No growth in 48 hours. 11/11/18 12:45 Urine Culture - Final Urine, Clean Catch Meth. resistant Staph. aureus Laboratory Tests Past 24 Hrs 11/12/18 23:47 Vancomycin Trough 5.4 POC Glucose 11/13/18 11/13/18 11/12/18 12:11 06:30 22:38 POC Glucose 199 H 159 H 171 H 11/12/18 16:31 POC Glucose 198 H Assessment/Plan Patient seen by Dena MOHR under my supervision Patient seen and examined this morning. He has no complaints and feels well. Is a managed for cellulitis of the left lower extremity. Duplex was negative for any DVT. He is currently on IV vancomycin and Zosyn. ID on board. Review of systems otherwise negative. Labs and vitals reviewed. o/e: Vital Signs Height 6 ft Weight: 346 lb 2.012 oz Weight in Pounds 346.1 lbs Pulse Ox 94 Temperature 98.0 F Pulse Rate 91 Respiratory Rate 18 Blood Pressure 157/89 Blood Pressure Position Semi-Fowlers General: Alert, Oriented x3, Cooperative HEENT: Atraumatic, PERRLA, EOMI, Normocephalic Neck: Supple, No JVD, Negative Carotid Bruits Lungs: Clear to auscultation, Diminished Cardiovascular: Regular rate, Regular Rhythm, Normal S1, Normal S2, No murmurs Abdomen: Bowel Sounds Present, Soft, Non Tender, Non-Distended, Obese Extremities: No clubbing, No cyanosis, No edema, Capillary Refill Less than 3 Seconds Skin: - - Left lower extremity erythema has improved. Multiple wounds including right lateral ankle, left lateral calf, left heel and bilateral gluteal crease wounds. these are chronic Musculoskeletal: No Tenderness to Palpation of Joints or Extremities Neurological: Cranial nerves II-XII grossly intact, - - Chronic paraplegia Psych/Mental Status: Normal Affect, Appropriate Plan is to continue with IV antibiotics. Blood cultures show no growth after 48 hours. Urine culture showed grew MRSA and wound culture also grew Staphylococcus aureus and gram-negative rods with sensitivities pending. Continue IV vancomycin and Zosyn for today, for likely discharge tomorrow. Rest of management as per Dena Rich NP-C's note, which I have reviewed and endorse. Code Visit Inpatient E&M: 65992 Subs Hosp L2
[2018-11-13 16:45] LABS: Bedside Glucose 146 mg/dL (70-110)
[2018-11-13] MEDS: Acetaminophen 325 MG Tablet 650 MG PO ×2 (16:59→23:52)
[2018-11-13] MEDS: hydrALAZINE 20 MG/ML Vial 10 MG IV (17:16)
[2018-11-13] MEDS: 0.9% NaCl Peripheral Flush Adult/Peds IV ×2 (17:16→22:53)
[2018-11-14 00:03] VITALS: BP 148/82; PULSE 93; RESP 18; TEMP 36.8; O2SAT 97
[2018-11-14 00:16] LABS: Bedside Glucose 162 mg/dL (70-110)
[2018-11-14 04:03] VITALS: BP 144/91; PULSE 88; RESP 18; TEMP 36.5; O2SAT 97
[2018-11-14] MEDS: Enoxaparin 150 MG/ML Syringe SC (06:17)
[2018-11-14 06:56] VITALS: O2SAT 95
[2018-11-14 07:10] LABS: Bedside Glucose 146 mg/dL (70-110)
[2018-11-14] MEDS: Glucerna Shake 120 ML LIQUID PO (08:43)
--- NOTE | 2018-11-14 10:40 | DCINST_ITS ---
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) Cellulitis of left lower extremity (Acute) Sepsis (Acute) Hyperglycemia (Acute) You will use the following diet at home:: Calorie/Carbohydrate Controlled (specify 1200, 1400, etc) Discharge Activity: Return to Normal Activity Call your doctor if your incision/area has: Continuous Slow Oozing, Sudden Increased Bleeding, Increased Pain/ Swelling, Increased Redness, Foul Smelling Discharge Call your doctor if you observe: Fever of 101 or Higher Additional Instructions: Cleanse wounds to left ankle, left lower leg, right ankle and bilateral gluteal creases daily with normal saline and pat dry. Place Aquacel Ag and cover with dry dressing. Wrap lower legs with Kerlix. Keep heels offloaded. Allergies/Adverse Reactions: Allergies No Known Allergies Allergy (Verified 11/11/18 11:08) Medications to take at Discharge Metformin(XR) [Glucophage Xr] 500 mg PO DAILY #30 tablet 11/14/18 levoFLOXacin tablet [Levaquin tablet] 750 mg PO DAILY #5 tablet 11/14/18 The following prescriptions were given: levoFLOXacin tablet [Levaquin tablet] 750 mg PO DAILY #5 tablet Metformin(XR) [Glucophage Xr] 500 mg PO DAILY #30 tablet Primary Care Physician: NOT,DEFINED [NON-STAFF] - Please follow up with your Primary Care Physician in: 1 Week Test Results: Test results from this visit will be discussed in further detail at your follow- up appointment, if applicable. Please Follow Up With: Wound Center When: Next Week Proposed Discharge Date: 11/14/18
--- NOTE | 2018-11-14 10:45 | PCM.DC.SUM ---
<Dena Rich - Last Filed: 11/14/18 11:01> Discharge Date and Diagnosis Date of Admission: 11/11/18 Date of Discharge: 11/14/18 - Primary Discharge Diagnosis Active and Suspected Problems 1. Acute sepsis secondary to acute left lower extremity cellulitis in the context of multiple chronic wounds including left heal wound with MRSA, pseudomonas, and proteus. 2. Multiple chronic wounds including bilateral gluteal crease, right lateral ankle, left heel and left lateral calf 3. Acute MRSA UTI 4. 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 Morbid obesity 6. Tobacco dependence 7. New diagnosis type 2 diabetes mellitus - Secondary Discharge Diagnosis Chronic Problems 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) Hospital Course and Treatment Consultations 11/11/18 17:38 Consult: Onc/Wound/bar host Routine Comment: Operations: None Procedures: None Summary of Care Provided: The patient is a 33 year old M admitted 11/11/2018 due to left lower extremity redness, fever. 1. Acute sepsis secondary to acute left lower extremity cellulitis in the context of multiple chronic wounds-patient with temperature 103F prior to admission, tachycardia, leukocytosis. Duplex ultrasound left lower extremity negative. IV vancomycin and IV Zosyn during admission. Wound culture left heel shows MRSA, pseudomonas, proteus. Blood cultures show no growth. MSSA and MRSA PCR positive. ID consulted. Discharge on levaquin 750mg PO daily X5 days. Cleanse wounds to left ankle, left lower leg, right ankle and bilateral gluteal creases daily with normal saline and pat dry. Place Aquacel Ag and cover with dry dressing. Wrap lower legs with Kerlix. Keep heels offloaded. Home health at discharge. Follow up with wound center next week. Follow-up with primary care physician in 1 week. 2. Multiple chronic wounds including bilateral gluteal crease, right lateral ankle, left heel and left lateral calf-wound RN consult as noted above. Frequent position changes and offloading of heels. Patient will be discharge home with home health and follow up at wound center. 3. Acute MRSA UTI-urine culture with MRSA. IV vancomycin X4 days during admission. Low colony count, 11-25,000. 4. 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 Morbid obesity-encouraged diet and lifestyle modifications. 6. Tobacco dependence-encourage smoking cessation. 7. New diagnosis type 2 diabetes mellitus-hemoglobin A1c 7.6%. Metformin XR 500mg daily at discharge. Follow up with PCP for repeat HA1C in 3 months. General: Alert, Oriented x3, Cooperative HEENT: Atraumatic, PERRLA, EOMI, Normocephalic Neck: Supple, No JVD, Negative Carotid Bruits Lungs: Clear to auscultation, Diminished Cardiovascular: Regular rate, Regular Rhythm, Normal S1, Normal S2, No murmurs Abdomen: Bowel Sounds Present, Soft, Non Tender, Non-Distended, Obese Extremities: No clubbing, No cyanosis, No edema, Capillary Refill Less than 3 Seconds Skin: - - Left lower extremity erythema resolved. Multiple wounds including right lateral ankle, left lateral calf, left heel and bilateral gluteal crease wounds. These do not appear acutely infected or necrotic. Musculoskeletal: No Tenderness to Palpation of Joints or Extremities Neurological: Cranial nerves II-XII grossly intact, Chronic paraplegia Psych/Mental Status: Normal Affect, Appropriate Patient seen and examined prior to discharge. Physical assessment as noted above. Patient is stable for discharge with follow up recommendations as noted above. This patient was seen by ONUR Potts under the supervision of Dr. Hernández. - Physical Exam Vital Signs Temp Pulse Resp BP Pulse Ox 97.7 F L 88 18 144/91 H 95 11/14/18 04:03 11/14/18 04:03 11/14/18 04:03 11/14/18 04:03 11/14/18 06:56 Oxygen Delivery Method Room Air Weight: 346 lb 2.012 oz Body Mass Index (BMI) 46.9 Intake and Output for Last 24 Hours 11/12/18 11/13/18 11/14/18 23:59 23:59 23:59 Intake Total 4216 / 4216 4474 / 4474 814 / 814 Output Total 1925 / 1925 5540 / 5540 1320 / 1320 Balance 2291 / 2291 -1066 / -1066 -506 / -506 Microbiology Past 72 Hours 11/12/18 10:30 Gram Stain - Final Wound - Heel, Left Wound Culture - Preliminary Meth. resistant Staph. aureus Pseudomonas aeroginosa Proteus sp. 11/11/18 12:15 Blood Culture - Preliminary Blood Culture (Wb) - Right Hand No growth in 48 hours. 11/11/18 11:50 Blood Culture - Preliminary Blood Culture (Wb) - Anticubital Left No growth in 48 hours. 11/11/18 12:45 Urine Culture - Final Urine, Clean Catch Meth. resistant Staph. aureus POC Glucose 11/14/18 11/13/18 11/13/18 07:00 22:59 16:36 POC Glucose 146 H 162 H 146 H 11/13/18 12:11 POC Glucose 199 H Discharge Diet: 1800 Calorie Control Diet, Carb Control Diet Discharge Activity: Return to Normal Activity Call your doctor if your incision/area has: Continuous Slow Oozing, Sudden Increased Bleeding, Increased Pain/ Swelling, Increased Redness, Foul Smelling Discharge Call your doctor if you observe: Fever of 101 or Higher Home Medications: Medications to take at Discharge Metformin(XR) [Glucophage Xr] 500 mg PO DAILY #30 tablet 11/14/18 levoFLOXacin tablet [Levaquin tablet] 750 mg PO DAILY #5 tablet 11/14/18 Following Prescrptions Were Given to Patient: levoFLOXacin tablet [Levaquin tablet] 750 mg PO DAILY #5 tablet Metformin(XR) [Glucophage Xr] 500 mg PO DAILY #30 tablet Primary Care Physician: NOT,DEFINED [NON-STAFF] - Please follow up with your Primary Care Physician in: 1 Week Please Follow Up With: Wound Center When: Next Week Disposition: Home with Home Health Minutes spent on discharge:: 35 Patient Condition:: Stable Medical Necessity - Tobacco Use Smoking Status: Current every day smoker Tobacco Use: Cigarettes Meaningful Use Info Meaningful Use Diagnoses (Choose all that apply): None applicable <Sylvia Hernández - Last Filed: 11/14/18 13:23> Discharge Date and Diagnosis - Secondary Discharge Diagnosis Chronic Problems 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) Hospital Course and Treatment Consultations 11/11/18 17:38 Consult: Onc/Wound/bar host Routine Comment: Summary of Care Provided: Patient seen by Dena MOHR under my supervision The patient is a 33 year old M who was admitted through the ED on 11/11/2018 with a complaint of increasing left lower extremity redness and fever with a maximum temperature of 103 Fahrenheit at home. 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 He was admitted and managed for sepsis due to left lower extremity cellulitis. He was started on IV vancomycin. Duplex done of his left lower extremity was negative. Blood culture showed no growth after 48 hours. Wound culture grew Staphylococcus aureus (MRSA) and Pseudomonas aeruginosa both sensitive to levofloxacin. Redness and swelling of his left lower extremity improved significantly. He was discharged home on 11/14/2018 with a prescription for p.o. Levaquin for 5 days. He is to follow-up with his primary care doctor within 1 week. Patient seen and examined prior to discharge. He had no complaints and felt well. Review of systems otherwise negative. Labs and vitals reviewed. Home medication reviewed and reconciled. [] o/e: Vital Signs Height 6 ft Weight: 346 lb 2.012 oz Weight in Pounds 346.1 lbs Pulse Ox 98 Temperature 98.1 F Pulse Rate 85 Respiratory Rate 18 Blood Pressure 155/98 Blood Pressure Position Semi-Fowlers General: Alert, Oriented x3, Cooperative HEENT: Atraumatic, PERRLA, EOMI, Normocephalic Neck: Supple, No JVD, Negative Carotid Bruits Lungs: Clear to auscultation, Diminished Cardiovascular: Regular rate, Regular Rhythm, Normal S1, Normal S2, No murmurs Abdomen: Bowel Sounds Present, Soft, Non Tender, Non-Distended, Obese Extremities: No clubbing, No cyanosis, No edema, Capillary Refill Less than 3 Seconds Skin: - - Left lower extremity erythema has improved. Multiple wounds including right lateral ankle, left lateral calf, left heel and bilateral gluteal crease wounds. these are chronic Musculoskeletal: No Tenderness to Palpation of Joints or Extremities Neurological: Cranial nerves II-XII grossly intact, - - Chronic paraplegia Psych/Mental Status: Normal Affect, Appropriate Rest of management as per Dena Rich [employer]-C's note which I have reviewed and endorsed. - Physical Exam Vital Signs Temp Pulse Resp BP Pulse Ox 98.1 F 85 18 155/98 H 98 11/14/18 12:08 11/14/18 12:08 11/14/18 12:08 11/14/18 12:08 11/14/18 12:08 Oxygen Delivery Method Room Air Weight: 346 lb 2.012 oz Body Mass Index (BMI) 46.9 Intake and Output for Last 24 Hours 11/12/18 11/13/18 11/14/18 23:59 23:59 23:59 Intake Total 4216 / 4216 4474 / 4474 814 / 814 Output Total 1925 / 1925 5540 / 5540 1320 / 1320 Balance 2291 / 2291 -1066 / -1066 -506 / -506 Microbiology Past 72 Hours 11/12/18 10:30 Gram Stain - Final Wound - Heel, Left Wound Culture - Preliminary Meth. resistant Staph. aureus Pseudomonas aeroginosa Proteus sp. 11/11/18 12:15 Blood Culture - Preliminary Blood Culture (Wb) - Right Hand No growth in 48 hours. 11/11/18 11:50 Blood Culture - Preliminary Blood Culture (Wb) - Anticubital Left No growth in 48 hours. 11/11/18 12:45 Urine Culture - Final Urine, Clean Catch Meth. resistant Staph. aureus POC Glucose 11/14/18 11/13/18 11/13/18 07:00 22:59 16:36 POC Glucose 146 H 162 H 146 H Code Visit Inpatient E&M: 24499 Disch Hosp
--- NOTE | 2018-11-14 10:57 | DS.PCM_ITS ---
Addendum entered and electronically signed by ONUR Potts 11/25/18 15:21: Code Visit Clarification for discharge diagnosis #2: right lateral ankle, left lateral heel, and left lateral lower leg stage 3 pressure injuries. Original Note: <Dena Rich - Last Filed: 11/14/18 11:01> Discharge Date and Diagnosis Date of Admission: 11/11/18 Date of Discharge: 11/14/18 - Primary Discharge Diagnosis Active and Suspected Problems 1. Acute sepsis secondary to acute left lower extremity cellulitis in the context of multiple chronic wounds including left heal wound with MRSA, pseudomonas, and proteus. 2. Multiple chronic wounds including bilateral gluteal crease, right lateral ankle, left heel and left lateral calf 3. Acute MRSA UTI 4. 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 Morbid obesity 6. Tobacco dependence 7. New diagnosis type 2 diabetes mellitus - Secondary Discharge Diagnosis Chronic Problems 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) Hospital Course and Treatment Consultations 11/11/18 17:38 Consult: Onc/Wound/vacuum frame operator Routine Comment: Operations: None Procedures: None Summary of Care Provided: The patient is a 33 year old M admitted 11/11/2018 due to left lower extremity redness, fever. 1. Acute sepsis secondary to acute left lower extremity cellulitis in the context of multiple chronic wounds-patient with temperature 103F prior to admission, tachycardia, leukocytosis. Duplex ultrasound left lower extremity negative. IV vancomycin and IV Zosyn during admission. Wound culture left heel shows MRSA, pseudomonas, proteus. Blood cultures show no growth. MSSA and MRSA PCR positive. ID consulted. Discharge on levaquin 750mg PO daily X5 days. Cleanse wounds to left ankle, left lower leg, right ankle and bilateral gluteal creases daily with normal saline and pat dry. Place Aquacel Ag and cover with dry dressing. Wrap lower legs with Kerlix. Keep heels offloaded. Home health at discharge. Follow up with wound center next week. Follow-up with primary care physician in 1 week. 2. Multiple chronic wounds including bilateral gluteal crease, right lateral ankle, left heel and left lateral calf-wound RN consult as noted above. Freq uent position changes and offloading of heels. Patient will be discharge home with home health and follow up at wound center. 3. Acute MRSA UTI-urine culture with MRSA. IV vancomycin X4 days during admission. Low colony count, 11-25,000. 4. 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 Morbid obesity-encouraged diet and lifestyle modifications. 6. Tobacco dependence-encourage smoking cessation. 7. New diagnosis type 2 diabetes mellitus-hemoglobin A1c 7.6%. Metformin XR 500mg daily at discharge. Follow up with PCP for repeat HA1C in 3 months. General: Alert, Oriented x3, Cooperative HEENT: Atraumatic, PERRLA, EOMI, Normocephalic Neck: Supple, No JVD, Negative Carotid Bruits Lungs: Clear to auscultation, Diminished Cardiovascular: Regular rate, Regular Rhythm, Normal S1, Normal S2, No murmurs Abdomen: Bowel Sounds Present, Soft, Non Tender, Non-Distended, Obese Extremities: No clubbing, No cyanosis, No edema, Capillary Refill Less than 3 Seconds Skin: - - Left lower extremity erythema resolved. Multiple wounds including right lateral ankle, left lateral calf, left heel and bilateral gluteal crease wounds. These do not appear acutely infected or necrotic. Musculoskeletal: No Tenderness to Palpation of Joints or Extremities Neurological: Cranial nerves II-XII grossly intact, Chronic paraplegia Psych/Mental Status: Normal Affect, Appropriate Patient seen and examined prior to discharge. Physical assessment as noted above. Patient is stable for discharge with follow up recommendations as noted above. This patient was seen by ONUR Potts under the supervision of Dr. Hernández. - Physical Exam Vital Signs Temp Pulse Resp BP Pulse Ox 97.7 F L 88 18 144/91 H 95 11/14/18 04:03 11/14/18 04:03 11/14/18 04:03 11/14/18 04:03 11/14/18 06:56 Oxygen Delivery Method Room Air Weight: 346 lb 2.012 oz Body Mass Index (BMI) 46.9 Intake and Output for Last 24 Hours 11/12/18 11/13/18 11/14/18 23:59 23:59 23:59 Intake Total 4216 / 4216 4474 / 4474 814 / 814 Output Total 1925 / 1925 5540 / 5540 1320 / 1320 Balance 2291 / 2291 -1066 / -1066 -506 / -506 Microbiology Past 72 Hours 11/12/18 10:30 Gram Stain - Final Wound - Heel, Left Wound Culture - Preliminary Meth. resistant Staph. aureus Pseudomonas aeroginosa Proteus sp. 11/11/18 12:15 Blood Culture - Preliminary Blood Culture (Wb) - Right Hand No growth in 48 hours. 11/11/18 11:50 Blood Culture - Preliminary Blood Culture (Wb) - Anticubital Left No growth in 48 hours. 11/11/18 12:45 Urine Culture - Final Urine, Clean Catch Meth. resistant Staph. aureus POC Glucose 11/14/18 11/13/18 11/13/18 07:00 22:59 16:36 POC Glucose 146 H 162 H 146 H 11/13/18 12:11 POC Glucose 199 H Discharge Diet: 1800 Calorie Control Diet, Carb Control Diet Discharge Activity: Return to Normal Activity Call your doctor if your incision/area has: Continuous Slow Oozing, Sudden Increased Bleeding, Increased Pain/ Swelling, Increased Redness, Foul Smelling Discharge Call your doctor if you observe: Fever of 101 or Higher Home Medications: Medications to take at Discharge Metformin(XR) [Glucophage Xr] 500 mg PO DAILY #30 tablet 11/14/18 levoFLOXacin tablet [Levaquin tablet] 750 mg PO DAILY #5 tablet 11/14/18 Following Prescrptions Were Given to Patient: levoFLOXacin tablet [Levaquin tablet] 750 mg PO DAILY #5 tablet Metformin(XR) [Glucophage Xr] 500 mg PO DAILY #30 tablet Primary Care Physician: NOT,DEFINED [NON-STAFF] - Please follow up with your Primary Care Physician in: 1 Week Please Follow Up With: Wound Center When: Next Week Disposition: Home with Home Health Minutes spent on discharge:: 35 Patient Condition:: Stable Medical Necessity - Tobacco Use Smoking Status: Current every day smoker Tobacco Use: Cigarettes Meaningful Use Info Meaningful Use Diagnoses (Choose all that apply): None applicable <Sylvia Hernández - Last Filed: 11/14/18 13:23> Discharge Date and Diagnosis - Secondary Discharge Diagnosis Chronic Problems 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) Hospital Course and Treatment Consultations 11/11/18 17:38 Consult: Onc/Wound/vacuum frame operator Routine Comment: Summary of Care Provided: Patient seen by Dena MOHR under my supervision The patient is a 33 year old M who was admitted through the ED on 11/11/2018 with a complaint of increasing left lower extremity redness and fever with a maximum temperature of 103 Fahrenheit at home. 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 He was admitted and managed for sepsis due to left lower extremity cellulitis. He was started on IV vancomycin. Duplex done of his left lower extremity was negative. Blood culture showed no growth after 48 hours. Wound culture grew Staphylococcus aureus (MRSA) and Pseudomonas aeruginosa both sensitive to levofloxacin. Redness and swelling of his left lower extremity improved si gnificantly. He was discharged home on 11/14/2018 with a prescription for p.o. Levaquin for 5 days. He is to follow-up with his primary care doctor within 1 week. Patient seen and examined prior to discharge. He had no complaints and felt well. Review of systems otherwise negative. Labs and vitals reviewed. Home medication reviewed and reconciled. [] o/e: Vital Signs Height 6 ft Weight: 346 lb 2.012 oz Weight in Pounds 346.1 lbs Pulse Ox 98 Temperature 98.1 F Pulse Rate 85 Respiratory Rate 18 Blood Pressure 155/98 Blood Pressure Position Semi-Fowlers General: Alert, Oriented x3, Cooperative HEENT: Atraumatic, PERRLA, EOMI, Normocephalic Neck: Supple, No JVD, Negative Carotid Bruits Lungs: Clear to auscultation, Diminished Cardiovascular: Regular rate, Regular Rhythm, Normal S1, Normal S2, No murmurs Abdomen: Bowel Sounds Present, Soft, Non Tender, Non-Distended, Obese Extremities: No clubbing, No cyanosis, No edema, Capillary Refill Less than 3 Seconds Skin: - - Left lower extremity erythema has improved. Multiple wounds including right lateral ankle, left lateral calf, left heel and bilateral gluteal crease wounds. these are chronic Musculoskeletal: No Tenderness to Palpation of Joints or Extremities Neurological: Cranial nerves II-XII grossly intact, - - Chronic paraplegia Psych/Mental Status: Normal Affect, Appropriate Rest of management as per Dena Rich [employer]-C's note which I have reviewed and endorsed. - Physical Exam Vital Signs Temp Pulse Resp BP Pulse Ox 98.1 F 85 18 155/98 H 98 11/14/18 12:08 11/14/18 12:08 11/14/18 12:08 11/14/18 12:08 11/14/18 12:08 Oxygen Delivery Method Room Air Weight: 346 lb 2.012 oz Body Mass Index (BMI) 46.9 Intake and Output for Last 24 Hours 11/12/18 11/13/18 11/14/18 23:59 23:59 23:59 Intake Total 4216 / 4216 4474 / 4474 814 / 814 Output Total 1925 / 1925 5540 / 5540 1320 / 1320 Balance 2291 / 2291 -1066 / -1066 -506 / -506 Microbiology Past 72 Hours 11/12/18 10:30 Gram Stain - Final Wound - Heel, Left Wound Culture - Preliminary Meth. resistant Staph. aureus Pseudomonas aeroginosa Proteus sp. 11/11/18 12:15 Blood Culture - Preliminary Blood Culture (Wb) - Right Hand No growth in 48 hours. 11/11/18 11:50 Blood Culture - Preliminary Blood Culture (Wb) - Anticubital Left No growth in 48 hours. 11/11/18 12:45 Urine Culture - Final Urine, Clean Catch Meth. resistant Staph. aureus POC Glucose 11/14/18 11/13/18 11/13/18 07:00 22:59 16:36 POC Glucose 146 H 162 H 146 H Code Visit Inpatient E&M: 45217 Disch Hosp
[2018-11-14 12:08] VITALS: BP 155/98; PULSE 85; RESP 18; TEMP 36.7; O2SAT 98
--- NOTE | 2018-11-14 12:25 | NURSING ---
STATES GOING TO GET A SHOWER WHEN HE GETS HOME SO ASKED THAT I NOT PUT ALL NEW DRSGS OVER WOUNDS. SIRIAAT FOOT DRSGS REMOVED & REPLACED W/GAUZE SO HE IS ABLE TO PUT SHOES ON.
--- NOTE | 2018-11-15 13:12 | CASEMGMT ---
AURORA BUTLER received update from Dannie Rich CNP that patient wanted HHC when he was discharged yesterday. AURORA BUTLER called and follow-up with patient at home. Patient does not have PCP to follow HHC. UARORA BUTLER provided patient with name and number of Dr. Andersen, who is accepting new patient's. Patient was appreciative and was also going to follow-up with wound center. Patient states he has someone who is helping him with his dressing changes. Patient voiced not further concerns or questions at this time.
== END 2018-11-14 12:44 | disposition home or self-care (01) | DRG 871 ==
LOC: ED 15:34 → MS3 16:06
PROVIDERS: Admitting Provider Family Medicine; Emergency Provider Emergency Medicine; Visit Provider Student in an Organized Health Care Education/Training Program
DX: A41.9 Sepsis, unspecified organism (principal); L89.513 Pressure ulcer of right ankle, stage 3; L89.623 Pressure ulcer of left heel, stage 3; L89.893 Pressure ulcer of other site, stage 3; L03.116 Cellulitis of left lower limb; G82.20 Paraplegia, unspecified; N39.0 Urinary tract infection, site not specified; Z68.42 Body mass index [BMI] 45.0-49.9, adult; B95.62 Methicillin resistant Staphylococcus aureus infection as the cause of diseases classified elsewhere; B96.5 Pseudomonas (aeruginosa) (mallei) (pseudomallei) as the cause of diseases classified elsewhere; B96.4 Proteus (mirabilis) (morganii) as the cause of diseases classified elsewhere; E66.01 Morbid (severe) obesity due to excess calories; F17.210 Nicotine dependence, cigarettes, uncomplicated; E11.9 Type 2 diabetes mellitus without complications; Q76.49 Other congenital malformations of spine, not associated with scoliosis
CPT/HCPCS: 36415; 80048; 80053; 80202; 81001; 82962; 83036; 83605; 83735; 85025; 85610; 85730; 87040; 87070; 87077; 87086; 87088; 87184; 87186; 87205; 87640; 93005; 93971; 97802; 97803; 99283; J7030; J7040; A4216; C1751

== ENCOUNTER → 2018-12-30 | Outpatient (CLI) | payer MEDICARE, OTHER, SELFPAY ==
[2018-11-11 17:33] VITALS: BMI 46.9
[2018-12-24 13:05] VITALS: BMI 46.9
== END | disposition home or self-care (01) ==
LOC: SL 01-04 16:03
PROVIDERS: Family Provider Internal Medicine; PCP Internal Medicine; Referring Provider Internal Medicine; Visit Provider Internal Medicine
DX: G47.33 Obstructive sleep apnea (adult) (pediatric) (principal)
CPT/HCPCS: 95806

== ENCOUNTER 2019-01-10 14:13 | Inpatient (IN) | payer MEDICARE, OTHER, SELFPAY ==
[2018-12-24 13:05] VITALS: BMI 46.9
[2019-01-10 14:14] VITALS: BP 143/73; PULSE 114; RESP 22; TEMP 36.6; O2SAT 98; BMI 47.5
[2019-01-10 15:57] VITALS: BP 156/79; PULSE 108; RESP 16; TEMP 36.9; O2SAT 97
--- NOTE | 2019-01-10 16:33 | ED.VISSUMM ---
- ER Visit Summary Date of Service: 01/10/19 Chief Complaint: Left lower extremity redness History of Present Illness: The patient is a 33 M presenting with left lower extremity redness. Patient has a wound on his left heel. He was admitted approximately 2 months ago per patient for left lower extremity cellulitis. He states it did improve. He followed up with his primary care physician. The redness returned today. He has a history of paraplegia. He denies fever. Denies other complaints. Physical Examination: Vitals are stable. Patient is afebrile. Alert no acute distress. HEENT exam is unremarkable. Neck is supple. Lungs are clear and equal bilaterally. Heart is regular rate and rhythm. Abdomen is soft nontender nondistended. Extremities wound to left heel with purulent drainage. Erythema diffusely to the distal knee. Skin is warm and dry. Remainder of exam is unremarkable. Emergency Department Course and Treatment: CBC shows white count 12.6. Chemistries unremarkable. ESR 63. CRP 211. Lactic acid 2.5. Blood cultures were sent. He was given Ancef IV. Left foot x-ray shows no fracture, soft tissue swelling. Discussed with the hospitalist for admission. Disposition: Admission Impression: Left lower extremity cellulitis This note was generated with [employer] dictation software. It may contain incorrect words, spelling, and punctuation that were not noted in review of the chart prior to signing ED Disposition - Plan for ED Patient: Referrals: Lee Andersen MD [Primary Care Provider] -
[2019-01-10 17:32] LABS: Absolute Lymphocyte Count 1.51 X10^3/ul (0.83-4.51); Absolute Neutrophil Count 9.5 X10^3/uL (2.0-7.7); Basophil# 0.03 X10^3/uL; Basophil% 0.2 % (0-1); Eosinophil# 0.13 X10^3/uL; Hematocrit 42.8 % (40-54); Hemoglobin 13.9 g/dl (13.0-16.5); Lymphocyte # 1.51 X10^3/ul (4.0); Mean Corp Hgb Conc 32.5 g/gl (32-36); Mean Corpuscular Volume 86.3 fL (80-94); Mean Platelet Vol. 10.7 fl (6.2-12.0); Monocyte# 1.36 X10^3/uL; Monocyte% 10.8 % (0-10); Neutrophil # 9.54 X10^3/uL (2.7-7.7); Neutrophil % 75.8 % (47-70); Platelet Count 257 K/mm3 (150-450); RBC Distribution Width CV 14.9 % (11.6-14.6); RBC Distribution Width SD 47.4 fl (35.1-43.9); Red Blood Count 4.96 M/mm3 (4.6-6.2); White Blood Count 12.6 K/mm3 (4.4-11.0)
[2019-01-10 17:34] LABS: POSITIVE COUNT NO; POSITIVE DIFFERENTIAL NO; POSITIVE MORPHOLOGY NO
--- NOTE | 2019-01-10 17:35 | RAD_ITS ---
STUDY: X-RAY - LEFT FOOT CLINICAL: Male, 33 years old. Wound TECHNIQUE: 3 view(s) of the foot. COMPARISON: None. FINDINGS: There is no evidence of fracture or dislocation. There are no significant degenerative changes. There are no radiodense foreign bodies. Osteopenia. Soft tissue swelling is present. RAD/Foot min 3 Views IMPRESSION: No fracture or dislocation. Osteopenia. Soft tissue swelling. Electronically Signed: Mao Sultana, at 17:55 EDT Tel , Service support ,
[2019-01-10 17:45] LABS: Erythrocyte Sedimentation Rate 63 mm/hr (0-15)
[2019-01-10 17:55] LABS: Anion Gap 9 (5-15); BUN 9 mg/dL (7-18); BUN/Creat Ratio 14.5 RATIO (10-20); Calcium,Total 8.9 mg/dL (8.5-10.1); Chloride 101 mmol/L (98-107); Creatinine, Serum 0.62 mg/dL (0.70-1.30); EST Glomerular Filtration Rate 157 mL/min (>60); Est Glom Filt Rate - Afr Amer 189 mL/min (>60); Estimated Creatinine Clearance 182.53 ml/min; Glucose 123 mg/dL (74-106); Potassium 3.8 mmol/L (3.5-5.1); Sodium Level 135 mmol/L (136-145)
--- NOTE | 2019-01-10 17:59 | ED.RN ---
pt is a hard iv start. attempt made to straight stick for second cultures. unable to obtain. dr consulted on drawing from line. dr agreed to draw from same site after 20 min had passed. katie anne 1800
[2019-01-10 18:08] VITALS: BP 131/88; PULSE 100; RESP 14; RESP 17; TEMP 36.8; O2SAT 97; O2SAT 98
--- NOTE | 2019-01-10 18:16 | ED.RN ---
dr vega consulted about possible sepsis. lactic acid no back yet. no further orders placed at this time. charge manager was informed. nimisha mathur rn [id number]
[2019-01-10 18:33] LABS: Lactic Acid 2.5 mmol/L (0.4-2.0)
[2019-01-10] MEDS: 0.9% Normal Saline 1,000 ML 999 ML IV (18:49)
[2019-01-10] MEDS: Cefazolin 1 GM/50 ML BAG IV (18:49)
[2019-01-10 19:15] VITALS: BMI 37.6
[2019-01-10 19:27] VITALS: BP 133/69; PULSE 104; RESP 18; TEMP 37.2; O2SAT 100
--- NOTE | 2019-01-10 19:46 | HP.PCM_ITS ---
Problem List (1) Severe sepsis Status: Acute (2) Left leg cellulitis Status: Acute History of Present Illness Date of Admission: 01/10/19 Chief Complaint: Left leg redness The patient is a 33 year old M who is a paraplegic and was in her normal state of health up until today where he noticed increased redness of his left lower extremity. Patient also had some general malaise. The patient did have some chills last night. Patient had a cellulitis of this leg previously but felt much worse at that time that he does this time. Patient does have a wound on the left posterior heel. 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) Medical History: Medical History (Last Reviewed 01/10/19 @ 19:48 by Ilan Pichardo DO) Paralysis (Chronic) G83.9 Blood infection (Resolved) A41.9 11/05 Cavernous hemangioma (Chronic) D18.00 10/2009 Recurrent infections (Acute) B99.9 High blood pressure (Chronic) I10 Diabetes (Chronic) E11.9 UTI (urinary tract infection) (Resolved) N39.0 Allergies No Known Allergies Allergy (Verified 01/10/19 14:16) Home Medications: Ambulatory Orders Medication Instructions Recorded metFORMIN (XR) [Glucophage Xr] 500 mg PO DAILY 01/10/19 Surgical History: - - Spine surgery Psychiatric History: No pertinent psych hx Smoking Status: Former smoker - *Family History Maternal Family History: Family History (Last Reviewed 01/10/19 @ 19:48 by Ilan Pichardo DO) Mother Hypertension History Items: Hypertension Paternal Family History: Family History (Last Reviewed 01/10/19 @ 19:48 by Ilan Pichardo DO) Mother Hypertension History Items: - - Denies known paternal medical history including cardiac history. Review of Systems Constitutional: Reports: Chills. Denies: Anorexia, Fever, Night Sweats Eyes: Denies: Blurred vision, Double vision HEENT: Denies: Head Aches, Sinus Congestion, Sinus Drainage Cardiovascular: Denies: Chest Pain, Palpitations Respiratory: Denies: Cough, Shortness of breath at rest, Sputum production Gastrointestinal: Denies: Abdominal Pain, Nausea, Vomiting Genitourinary: Denies: Dysuria Musculoskeletal: Denies: Joint Pain, Joint Tenderness Skin: Reports: Rash, Wounds Neurological: Reports: - - Paraplegic Psychiatric: Denies: Anxiety, Depression Endocrine: Denies: Change in Body Habitus Hematologic/ Lymphatic: Denies: Easy Bruising, Easy Bleeding, Hx of blood clot Comment: A 10 point review of systems were negative except as mentioned in the history of present illness and the other review of systems. VTE Information - Inpt Only VTE Present on Admission: No VTE Mechan Device Prophylaxis: None VTE Pharm Prophylaxis ordered?: Yes Patient Problems: Active and Suspected Problems (Last Reviewed 12/20/18 @ 16:34 by Analy Godfrey) Severe sepsis (Acute) Left leg cellulitis (Acute) - Physical Exam General: Alert, No apparent distress HEENT: Atraumatic, Normocephalic Oral: Moist Mucosa, No Gingival or Mucosal Lesions/ Ulcerations Neck: No Nodes, Thyroid Normal Size and Texture Lungs: Clear to auscultation, Normal air movement Cardiovascular: Regular rate, Regular Rhythm, Normal S1, Normal S2 Abdomen: Bowel Sounds Present, Soft, Non Tender, Non-Distended, No Hepato- splenomegaly Extremities: No edema Skin: - - Erythema of the left lower extremity. Patient has a superficial ulcer maceration of the left heel. Musculoskeletal: No Tenderness to Palpation of Joints or Extremities Neurological: - - No clonus. No sensation in the lower extremities. Psych/Mental Status: Normal Affect, Appropriate Vital Signs Temp Pulse Resp BP Pulse Ox 37.2 C 104 H 18 133/69 H 100 01/10/19 19:27 01/10/19 19:27 01/10/19 19:27 01/10/19 19:27 01/10/19 19:27 Oxygen Delivery Method Room Air Weight: 147.871 kg Body Mass Index (BMI) 37.6 Laboratory Tests Past 24 Hrs 01/10/19 01/10/19 01/10/19 17:14 17:14 17:14 WBC 12.6 H RBC 4.96 Hgb 13.9 Hct 42.8 MCV 86.3 MCH 28.0 MCHC 32.5 RDW 14.9 H RDW Differential 47.4 H Plt Count 257 MPV 10.7 Immature Gran % (Auto) 0.200 Neut % (Auto) 75.8 H Lymph % (Auto) 12.0 L [place] % (Auto) 10.8 H Eos % (Auto) 1.0 Baso % (Auto) 0.2 Absolute Neuts (auto) 9.5 H Absolute Lymphs (auto) 1.51 Total Counted Not Reportable ESR 63 H Sodium 135 L Potassium 3.8 Chloride 101 Carbon Dioxide 25.0 Anion Gap 9 BUN 9 Creatinine 0.62 L Estim Creat Clear Calc 182.53 Est GFR (MDRD) Af Amer 189 Est GFR (MDRD) Non-Af 157 BUN/Creatinine Ratio 14.5 Glucose 123 H Lactic Acid 2.5 H Calcium 8.9 C-React Prot Ext Range 211.00 H Clinical Impression(s) from Imaging Studies Foot X-Ray 01/10/19 17:35 IMPRESSION: No fracture or dislocation. Osteopenia. Soft tissue swelling. Electronically Signed: Mao Sultana, at 17:55 EDT Tel , Service support , Assessment/Plan All Active Problems (Last Reviewed 12/20/18 @ 16:34 by Analy Godfrey) Severe sepsis (Acute) Left leg cellulitis (Acute) Blood infection (Resolved) Recurrent infections (Acute) UTI (urinary tract infection) (Resolved) Cellulitis of left lower extremity (Acute) Sepsis (Acute) Hyperglycemia (Acute) 1. Severe sepsis * Secondary to left lower extremity cellulitis * IV fluids * Recheck lactic acid, initial lactic acid was 2.5 2. Left lower extremity cellulitis * I suspect the source was due to his left heel ulcer * Vancomycin * check wound culture * Check MRSA swab * Adjust antibiotics accordingly 3. Left heel ulcer * Secondary to his apparent lesion just persistent weight being placed on it * Consult wound care * check MRI to evaluate for any osteomyelitis * If osteomyelitis is noted then will likely need podiatry consultation 4. Diabetes mellitus type 2 * Continue metformin * Sliding scale insulin 5. VTE prophylaxis: Moderate risk. Lovenox. Code Visit Inpatient E&M: 41389 Init Hosp L3
[2019-01-10 21:19] LABS: Reflex Lactate? Y
[2019-01-10 23:26] LABS: Lactic Acid 0.7 mmol/L (0.4-2.0)
[2019-01-10 23:45] LABS: Bedside Glucose 185 mg/dL (70-110)
[2019-01-11 00:27] LABS: M R Staph aureus DNA By PCR POSITIVE (Negative); Probe Check PASS; Staph aureus DNA By PCR POSITIVE (Negative)
--- NOTE | 2019-01-11 01:11 | PCM.RX.CS ---
Consult Pharmacy has been consulted to manage selected antiobiotic: Vancomycin Type of Consult: New start Suspected Infection: Skin/Soft tissue Labs: Sodium 135 mmol/L (136-145) L 01/10/19 17:14 Potassium 3.8 mmol/L (3.5-5.1) 01/10/19 17:14 Chloride 101 mmol/L (98-107) 01/10/19 17:14 Carbon Dioxide 25.0 mmol/L (21.0-32.0) 01/10/19 17:14 9 (5-15) 01/10/19 17:14 BUN 9 mg/dL (7-18) 01/10/19 17:14 0.62 mg/dL (0.70-1.30) L 01/10/19 17:14 Est GFR (MDRD) Af Amer 189 mL/min (>60) 01/10/19 17:14 Est GFR (MDRD) Non-Af 157 mL/min (>60) 01/10/19 17:14 14.5 RATIO (10-20) 01/10/19 17:14 Glucose 123 mg/dL (74-106) H 01/10/19 17:14 Goal Trough: 15-20 mcg/mL Pharmacy Plan for Drug Dosing: Pharmacy Service will continue to monitor and adjust dosing as required. Medications Vancomycin HCl 1,500 mg/ (Sodium Chloride) 530 mls @ 250 mls/hr IV Q8H JAVAD Discontinued Medications Vancomycin HCl 2,000 mg/ (Sodium Chloride) 540 mls @ 250 mls/hr IV X1 ONE Stop: 01/10/19 22:39 Last Admin: 01/10/19 23:33 Dose: 250 mls/hr Documented by: Follow-Up Labs: Trough Vancomycin Labs to be done on [date and time ordered]: 01/11 @ 2300
[2019-01-11 01:32] VITALS: BP 126/66; PULSE 114; RESP 18; TEMP 36.7; O2SAT 97
[2019-01-11 06:32] LABS: Absolute Lymphocyte Count 1.27 X10^3/ul (0.83-4.51); Absolute Neutrophil Count 6.8 X10^3/uL (2.0-7.7); Basophil# 0.02 X10^3/uL; Basophil% 0.2 % (0-1); Eosinophil# 0.17 X10^3/uL; Eosinophils% 1.8 % (0-5); Hematocrit 40.2 % (40-54); Hemoglobin 12.8 g/dl (13.0-16.5); Lymphocyte # 1.27 X10^3/ul (4.0); Lymphocyte % 13.7 % (19-41); Mean Corp Hgb Conc 31.8 g/gl (32-36); Mean Corpuscular Hgb 27.2 pg (27.0-32.0); Mean Corpuscular Volume 85.4 fL (80-94); Mean Platelet Vol. 10.9 fl (6.2-12.0); Monocyte# 1.06 X10^3/uL; Monocyte% 11.4 % (0-10); Neutrophil # 6.76 X10^3/uL (2.7-7.7); Neutrophil % 72.7 % (47-70); Platelet Count 220 K/mm3 (150-450); RBC Distribution Width CV 15.1 % (11.6-14.6); RBC Distribution Width SD 46.2 fl (35.1-43.9); Red Blood Count 4.71 M/mm3 (4.6-6.2); White Blood Count 9.3 K/mm3 (4.4-11.0)
[2019-01-11 06:43] LABS: POSITIVE COUNT NO; POSITIVE DIFFERENTIAL NO; POSITIVE MORPHOLOGY NO
[2019-01-11] MEDS: Insulin Lispro 100 UNIT/ML INSULN.PEN SQ ×2 (06:43→17:11)
[2019-01-11 06:50] LABS: Anion Gap 8 (5-15); BUN 8 mg/dL (7-18); BUN/Creat Ratio 19.5 RATIO (10-20); Calcium,Total 8.1 mg/dL (8.5-10.1); Chloride 105 mmol/L (98-107); Creatinine, Serum 0.41 mg/dL (0.70-1.30); EST Glomerular Filtration Rate 251 mL/min (>60); Est Glom Filt Rate - Afr Amer 304 mL/min (>60); Glucose 167 mg/dL (74-106); Potassium 3.7 mmol/L (3.5-5.1); Sodium Level 136 mmol/L (136-145)
[2019-01-11 06:51] LABS: Bedside Glucose 163 mg/dL (70-110)
[2019-01-11] MEDS: metFORMIN (XR) 500 MG Tablet PO (09:43)
[2019-01-11] MEDS: Glucerna Shake 120 ML LIQUID PO ×2 (09:43→17:10)
[2019-01-11] MEDS: Enoxaparin 40 MG/0.4 ML Syringe SC (09:43)
[2019-01-11 09:46] VITALS: BP 131/70; PULSE 101; RESP 18; TEMP 36.7; O2SAT 98
--- NOTE | 2019-01-11 10:22 | NURSING ---
wound photo: left ischium
--- NOTE | 2019-01-11 10:23 | NURSING ---
wound photo: left lateral lower leg/heel
--- NOTE | 2019-01-11 10:24 | NURSING ---
wound photo: right ischium
--- NOTE | 2019-01-11 10:25 | NURSING ---
wound photo: right lateral malleolus
--- NOTE | 2019-01-11 10:29 | PN_ITS ---
Patient Problems: Active and Suspected Problems (Last Reviewed 01/10/19 @ 19:48 by Ilan Pichardo DO) Severe sepsis (Acute) Left leg cellulitis (Acute) Subjective: Vancomycin day #2 The patient is a 33-year-old male with a past medical history of paraplegia, diabetes mellitus type 2, hypertension and obesity who presented to the emergency department at [facility] on 01/10/2019 complaining of increasing redness of the left lower extremity. He also complained of generalized malaise. He is known to have a left posterior heel decub. Vital signs at presentation to the emergency room were temp 97.8, heart rate 114, blood pressure 143/73, respiratory rate 22 and he was 98% saturated on room air. White blood cell count was elevated at 12.6 with 76% neutrophils. Hemoglobin and platelets were normal. Sodium was mildly decreased at 135. Lactic acid was elevated at 2.5. ESR was 63 and the CRP is 211. A PCR for MRSA on the wound drainage was positive. Blood cultures and a wound culture were sent from the emergency department. X-ray of the left foot showed no fracture or dislocation, osteopenia and soft tissue swelling. He was admitted to the hospital with a diagnosis of severe sepsis secondary to left lower extremity cellulitis secondary to MRSA. He was started on vancomycin. Has had MRSA infections in the past. Admits to going to a ball game and sitting for a prolonged period of time WITHOUT his roho cushion. Afebrile since admission He has a resting tachycardia with heart rate in the 100-110 range. Blood pressures are within normal limits. All lab was personally reviewed. The white blood cell count today is 9.3 with 73% neutrophils. Second lactic acid was 0.7, down from 2.5 at admission. He has no complaints today. I reviewed the pictures taken by the wound care nurse of all his wounds today. I am most concerned about the ischial wounds....they are macerated and covered with slough and could very easily tunnel - Physical Exam General: Alert, Oriented x3, Cooperative, No apparent distress Oral: Moist Mucosa Lungs: Clear to auscultation Cardiovascular: Regular rate, Regular Rhythm, Normal S1, Normal S2, No murmurs Abdomen: Bowel Sounds Present, Soft, Non Tender, Non-Distended, Obese Extremities: - - his legs have just been dressed by wound care.....I did not take down the dressings but, did look at the photos Skin: No rashes Neurological: Cranial nerves II-XII grossly intact, - - paraplegic Vital Signs Temp Pulse Resp BP Pulse Ox 98.0 F 101 H 18 131/70 H 98 01/11/19 09:46 01/11/19 09:46 01/11/19 09:46 01/11/19 09:46 01/11/19 09:46 Oxygen Delivery Method Room Air Weight: 326 lb Body Mass Index (BMI) 37.6 Intake and Output for Last 24 Hours 01/09/19 01/10/19 01/11/19 23:59 23:59 23:59 Intake Total 1463 / 1463 692 / 692 Output Total 150 / 150 600 / 600 Balance 1313 / 1313 92 / 92 Laboratory Tests Past 24 Hrs 01/10/19 01/10/19 01/10/19 17:14 17:14 17:14 WBC 12.6 H RBC 4.96 Hgb 13.9 Hct 42.8 MCV 86.3 MCH 28.0 MCHC 32.5 RDW 14.9 H RDW Differential 47.4 H Plt Count 257 MPV 10.7 Immature Gran % (Auto) 0.200 Neut % (Auto) 75.8 H Lymph % (Auto) 12.0 L [place] % (Auto) 10.8 H Eos % (Auto) 1.0 Baso % (Auto) 0.2 Absolute Neuts (auto) 9.5 H Absolute Lymphs (auto) 1.51 Total Counted Not Reportable ESR 63 H Sodium 135 L Potassium 3.8 Chloride 101 Carbon Dioxide 25.0 Anion Gap 9 BUN 9 Creatinine 0.62 L Estim Creat Clear Calc 182.53 Est GFR (MDRD) Af Amer 189 Est GFR (MDRD) Non-Af 157 BUN/Creatinine Ratio 14.5 Glucose 123 H Lactic Acid 2.5 H Calcium 8.9 C-React Prot Ext Range 211.00 H S.aureus Protein A PCR MRSA (PCR) 01/10/19 01/10/19 01/11/19 21:15 22:43 06:10 WBC 9.3 RBC 4.71 Hgb 12.8 L Hct 40.2 MCV 85.4 MCH 27.2 MCHC 31.8 L RDW 15.1 H RDW Differential 46.2 H Plt Count 220 MPV 10.9 Immature Gran % (Auto) 0.200 Neut % (Auto) 72.7 H Lymph % (Auto) 13.7 L [place] % (Auto) 11.4 H Eos % (Auto) 1.8 Baso % (Auto) 0.2 Absolute Neuts (auto) 6.8 Absolute Lymphs (auto) 1.27 Total Counted Not Reportable ESR Sodium Potassium Chloride Carbon Dioxide Anion Gap BUN Creatinine Estim Creat Clear Calc Est GFR (MDRD) Af Amer Est GFR (MDRD) Non-Af BUN/Creatinine Ratio Glucose Lactic Acid 0.7 Calcium C-React Prot Ext Range S.aureus Protein A PCR POSITIVE H MRSA (PCR) POSITIVE H 01/11/19 06:10 WBC RBC Hgb Hct MCV MCH MCHC RDW RDW Differential Plt Count MPV Immature Gran % (Auto) Neut % (Auto) Lymph % (Auto) [place] % (Auto) Eos % (Auto) Baso % (Auto) Absolute Neuts (auto) Absolute Lymphs (auto) Total Counted ESR Sodium 136 Potassium 3.7 Chloride 105 Carbon Dioxide 23.0 Anion Gap 8 BUN 8 Creatinine 0.41 L Estim Creat Clear Calc 325.10 Est GFR (MDRD) Af Amer 304 Est GFR (MDRD) Non-Af 251 BUN/Creatinine Ratio 19.5 Glucose 167 H Lactic Acid Calcium 8.1 L C-React Prot Ext Range S.aureus Protein A PCR MRSA (PCR) POC Glucose 01/11/19 01/10/19 06:40 23:35 POC Glucose 163 H 185 H Medical Necessity - Tobacco Use Smoking Status: Former smoker Assessment/Plan All Active Problems (Last Reviewed 01/10/19 @ 19:48 by Ilan Pichardo DO) Severe sepsis (Acute) Left leg cellulitis (Acute) Blood infection (Resolved) Recurrent infections (Acute) UTI (urinary tract infection) (Resolved) Cellulitis of left lower extremity (Acute) Sepsis (Acute) Hyperglycemia (Acute) Impressions 1. severe sepsis due to cellulitis of the Left LE due to MRSA 2. multiple decubitus ulcers a. R lateral malleolus - stage 2 b. R ischium stage 2 c. Left heel - stage 3 d. left lateral calf - stage 2 e. left ischium - difficult to stage due to large amount of slough 3. Paraplegia 4. Diabetes mellitus type 2 5. Obesity 6. History of hypersomnolence 7. Hypertension Hemoglobin A1c, liver profile, magnesium, phosphorus Continue vancomycin Consult the wound care nurse check a UA and a urine culture Code Visit Inpatient E&M: 16350 Subs Hosp L2
[2019-01-11 11:04] LABS: AST(SGOT) 26 U/L (15-37); Alanine Aminotransfer ALT/SGPT 59 U/L (16-61); Albumin, Serum 2.7 g/dL (3.2-5.0); Alkaline Phosphatase 122 U/L (45-117); Bilirubin, Direct 0.09 mg/dL (0.00-0.30); Globulin 4.1 g/dL (2.2-4.2); Magnesium 2.1 mg/dL (1.6-2.6); Phosphorus 3.7 mg/dL (2.5-4.9); Protein, Total 6.8 g/dL (6.4-8.2)
[2019-01-11 11:10] LABS: Hemoglobin A1c 7.7 % (4.2-6.3)
[2019-01-11 11:55] LABS: Bedside Glucose 145 mg/dL (70-110)
--- NOTE | 2019-01-11 13:10 | CASEMGMT ---
RN CM Face to Face with patient for initial transition planning/care coordination assessment. RN CM introduced self and role at [facility]. Patient lying in bed, alert and oriented. Patient willing to participate in assessment and is able to answer all questions appropriately. Care providers, pharmacy, and demographics verified. Patient wishes to discharge home, with possible HHC. Patient states he has no further needs or concerns at this time. CM to follow for discharge planning needs that may arise. PCP: Ganesh Specialists: None [facility] Pres[facility] Benefit: yes Living Will/HPOA: None LNOK: Sister, mother, ex Living Arrangements: Patient lives alone in a 1 story home with no steps to enter the home. Transportation: self/family DME/HHC: Patient has wheelchair, and shower chair. Patient states that he has a friend that comes and helps in the mornings for about 1.50 hours. Patient has had [facility] in the past. Disposition Plan: Patient to discharge home with family support and follow-up plans in place. CM to monitor for need for home health for wound care and possible IV ATB. Sabi CANTRELL, RN, CM
[2019-01-11 13:26] LABS: Mucous, Urine 0 SEEN /hpf (<or=2+); Red Blood Cells-Urine 0 SEEN /hpf (0-5); Squamous Epithelial Cells - UA 0 SEEN /hpf (0-5)
[2019-01-11 13:37] LABS: Color, Urine Yellow (Yellow); Glucose, Dipstick Normal (Normal); Ketone-Dipstick Negative (Negative); Leukocyte Esterase-Dipstick 500 /ul (Negative); Nitrite-Dipstick Negative (Negative); Occult Blood-Urine 50 /ul (Negative); Protein-Dipstick Negative (Negative); Specific Gravity, Urine 1.015 (1.002-1.030); Urine Bilirubin Dipstick Negative (Negative); Urine Clarity Sl. Cloudy (Clear); Urine Urobilinogen 1 mg/dl (Normal)
[2019-01-11 13:43] LABS: Amorphous Sediment 1+; Bacteria RARE /hpf (None Seen); White Blood Cells 0-5 SEEN /hpf (0-5)
--- NOTE | 2019-01-11 14:30 | MRI_ITS ---
STUDY: MRI LEFT ANKLE WITHOUT CONTRAST REASON FOR EXAM: Male, 33 years old. Cellulitis. Heel ulcer. Paraplegia. TECHNIQUE: Standardized fat and water weighted pulse sequences were obtained in all 3 orthogonal planes. COMPARISON: X-ray January 10, 2019 FINDINGS: There is subcutaneous edema of the lower leg and ankle. There is posterior skin thickening and subcutaneous edema. There is focal marrow edema of the posterior lateral calcaneus, series 8 image . Normal posterior tibialis tendon. Normal flexor digitorum longus tendon. Normal flexor hallucis longus tendon. Normal peroneus longus and brevis tendons. Normal tibialis anterior tendon. Normal extensor hallucis longus tendon. Normal extensor digitorum longus tendons. Normal Achilles tendon and teno-osseous insertion. Normal plantar fascia. Normal plantar calcaneal tubercles. Normal intrinsic muscles of the rearfoot. Normal distal tibiofibular syndesmotic ligamentous complex. Normal lateral ligamentous complex. Normal subtalar ligaments and sinus tarsi. Normal deltoid ligamentous complexes. Normal plantar calcaneonavicular (spring) ligament. There is small effusion of the tibiotalar articulation. Normal talar dome. Normal subtalar articulations. Normal talonavicular articulation. Normal calcaneocuboid articulation. Normal navicular-cuneiform articulations. MRI/Lower Ext/No Jt/w/o IMPRESSION: Osteomyelitis of the posterior calcaneus. Posterior skin thickening and subcutaneous edema. No abscess or fluid collection. Electronically Signed: Reymundo Joiner MD at 17:58 EDT , Service support ,
--- NOTE | 2019-01-11 14:37 | CHAPLAIN ---
Type of Pastoral Visit _x__ Initial Visit ___ Follow-up Visit ___ On-call Visit ___ General Patient Visit ___ Spiritual Assessment ___ Family Conference ___ Bereavement ___ Rapid Response ___ Code Blue ___ Other (describe below) Pastoral Care Referral From _x__ Patient ___ Family ___ Nurse ___ Physician ___ Child Welfare Manager ___ Park Guard ___ Other (describe below) Sacrament/Intervention ___ Active listening ___ Anointing ___ Zoroastrianism ___ Bereavement ___ Communion ___ Shireen exploration ___ ___ Life review ___ Prayer ___ Reconciliation ___ Sacrament of Sick ___ Supportive presence ___ Wedding _x__ Other (describe below) Pastoral Comments patient had many family members in the room; pt declines visit at this time but would welcome trim master operator to return at another time
[2019-01-11 17:13] VITALS: BP 128/66; PULSE 100; RESP 18; TEMP 36.8; O2SAT 98
[2019-01-11 17:20] LABS: Bedside Glucose 168 mg/dL (70-110)
[2019-01-11 21:26] VITALS: BP 125/77; PULSE 94; RESP 18; TEMP 37.1; O2SAT 95
[2019-01-11 21:50] LABS: Bedside Glucose 177 mg/dL (70-110)
[2019-01-11 23:27] LABS: Vancomycin, Trough Level 14.6 ug/mL (5.0-15.0)
[2019-01-12 01:39] VITALS: BP 143/88; PULSE 103; RESP 18; TEMP 36.7; O2SAT 96
[2019-01-12] MEDS: Acetaminophen 325 MG Tablet 650 MG PO ×2 (01:44→21:49)
--- NOTE | 2019-01-12 04:42 | PCM.RX.CS ---
Consult Pharmacy has been consulted to manage selected antiobiotic: Vancomycin Type of Consult: Follow-up Suspected Infection: Skin/Soft tissue Labs: Sodium 136 mmol/L (136-145) 01/11/19 06:10 Potassium 3.7 mmol/L (3.5-5.1) 01/11/19 06:10 Chloride 105 mmol/L (98-107) 01/11/19 06:10 Carbon Dioxide 23.0 mmol/L (21.0-32.0) 01/11/19 06:10 8 (5-15) 01/11/19 06:10 BUN 8 mg/dL (7-18) 01/11/19 06:10 0.41 mg/dL (0.70-1.30) L 01/11/19 06:10 Est GFR (MDRD) Af Amer 304 mL/min (>60) 01/11/19 06:10 Est GFR (MDRD) Non-Af 251 mL/min (>60) 01/11/19 06:10 19.5 RATIO (10-20) 01/11/19 06:10 Glucose 167 mg/dL (74-106) H 01/11/19 06:10 Vancomycin Trough 14.6 ug/mL (5.0-15.0) 01/11/19 23:03 Microbiology: Microbiology 01/10/19 21:15 Wound - Heel, Left Gram Stain - Final 01/10/19 21:15 Wound - Heel, Left Wound Culture - Preliminary Gram positive organism Goal Trough: 15-20 mcg/mL Pharmacy Plan for Drug Dosing: Pharmacy Service will continue to monitor and adjust dosing as required. DUE TO DOSE PRIOR TO TROUGH GIVEN LATE, REDRAW TROUGH 01/12 @ 1500 TROUGH WAS 14.6. Follow-Up Labs: Trough Vancomycin Labs to be done on [date and time ordered]: 01/12 @ 1500
[2019-01-12] MEDS: Insulin Lispro 100 UNIT/ML INSULN.PEN SQ ×3 (06:28→17:26)
[2019-01-12 06:36] LABS: Bedside Glucose 156 mg/dL (70-110)
[2019-01-12 07:39] VITALS: BP 143/74; PULSE 88; RESP 18; TEMP 36.6; O2SAT 93
[2019-01-12] MEDS: metFORMIN (XR) 500 MG Tablet PO (08:09)
[2019-01-12] MEDS: Glucerna Shake 120 ML LIQUID PO ×3 (08:09→17:26)
--- NOTE | 2019-01-12 08:36 | PN_ITS ---
Patient Problems: Active and Suspected Problems (Last Reviewed 01/10/19 @ 19:48 by Ilan Pichardo DO) Severe sepsis (Acute) Left leg cellulitis (Acute) Subjective: Patient seen and examined. Discussed with the patient's mother knee at the bedside. Patient has history of MRSA in the past. Currently, bilateral feet and ischial decubitus ulcer with MRSA. 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 ID is being consulted. The patient has a history of cavernous hemangioma about 9 years ago that resulted in 2 paraplegia. Patient has a straight cath himself. Patient's caregiver helps him for finger disimpaction. Vitals/I&O's: Vital Signs Temp Pulse Resp BP Pulse Ox 97.8 F 88 18 143/74 H 93 01/12/19 07:39 01/12/19 07:39 01/12/19 07:39 01/12/19 07:39 01/12/19 07:39 Oxygen Delivery Method Room Air Weight: 325 lb 13.491 oz Body Mass Index (BMI) 37.6 Intake and Output for Last 24 Hours 01/10/19 01/11/19 01/12/19 23:59 23:59 23:59 Intake Total 1463 / 1463 4223 / 4223 896 / 896 Output Total 150 / 150 3125 / 3125 700 / 700 Balance 1313 / 1313 1098 / 1098 196 / 196 General: Alert, Oriented x3, Cooperative, - - Morbid obesity HEENT: Atraumatic, PERRLA, EOMI, Normocephalic Neck: Supple, No JVD, Negative Carotid Bruits Lungs: Clear to auscultation, No rhonchi, No wheeze, No rales, Diminished Cardiovascular: Regular rate, Regular Rhythm, Normal S1, Normal S2, No murmurs Abdomen: Bowel Sounds Present, Soft, Non Tender, Non-Distended Extremities: No edema, Capillary Refill Less than 3 Seconds Skin: No rashes, No breakdown Musculoskeletal: Arthritic Changes, Muscle Wasting Neurological: Cranial nerves II-XII grossly intact, - - Paraplegia. Neurogenic bladder. Psych/Mental Status: Normal Affect, Appropriate Microbiology Past 72 Hours 01/10/19 21:15 Wound - Heel, Left Gram Stain - Final 01/10/19 21:15 Wound - Heel, Left Wound Culture - Preliminary Gram positive organism Laboratory Results 01/11/19 06:10: Phosphorus 3.7, Magnesium 2.1, Total Bilirubin 0.30, Direct Bilirubin 0.09, AST 26, ALT 59, Alkaline Phosphatase 122 H, Total Protein 6.8, Albumin 2.7 L, Globulin 4.1 01/11/19 06:10: Hemoglobin A1c 7.7 H 01/11/19 11:44: POC Glucose 145 H 01/11/19 12:00: Urine Color Yellow, Urine Clarity Sl. Cloudy, Urine pH 5.0, Ur Specific Sterrett 1.015, Urine Protein Negative, Urine Glucose (UA) Normal, Urine Ketones Negative, Urine Occult Blood 50 H, Urine Nitrite Negative, Urine Bilirubin Negative, Urine Urobilinogen 1 H, Ur Leukocyte Esterase 500 H, Urine RBC 0 SEEN, Urine WBC 0-5 SEEN, Ur Squamous Epith Cells 0 SEEN, Amorphous Sediment 1+, Urine Bacteria RARE, Urine Mucus 0 SEEN 01/11/19 17:10: POC Glucose 168 H 01/11/19 21:39: POC Glucose 177 H 01/11/19 23:03: Vancomycin Trough 14.6 01/12/19 06:27: POC Glucose 156 H Current Medications Acetaminophen (Tylenol) 650 mg PO Q6H PRN PRN PRN Reason: Mild Pain (1-3)/Temp > 100.7 F Last Admin: 01/12/19 01:44 Dose: 650 mg Documented by: Dextrose (D50w Syringe) 0 gm IV X1 PRN; Protocol PRN Reason: Hypoglycemia Enoxaparin Sodium (Lovenox) 40 mg SC DAILY@1000 JAVAD Last Admin: 01/11/19 09:43 Dose: 40 mg Documented by: Glucagon () 1 mg IM .X1 PRN PRN Reason: Hypoglycemia Vancomycin IV Pharmacy to Dose (1 ea/ Sodium Chloride) 500 mls @ 250 mls/hr IV X1 PRN; Protocol PRN Reason: Rx to Dose Vancomycin HCl 1,500 mg/ (Sodium Chloride) 530 mls @ 250 mls/hr IV Q8H [facility] Last Admin: 01/12/19 07:24 Dose: 250 mls/hr Documented by: Ibuprofen (Motrin) 400 mg PO Q4H PRN PRN PRN Reason: Mild Pain (1-3)/Temp > 100.7 F Insulin Human Lispro (Humalog Kwikpen (Bkc)) 0 unit SQ TIDAC [facility]; Protocol Last Admin: 01/12/19 06:28 Dose: 1 units Documented by: Lactobacillus Acidophilus (Acidophilus) 1 tablet PO BID [facility] Last Admin: 01/12/19 08:09 Dose: 1 tablet Documented by: Metformin HCl (Glucophage Xr) 500 mg PO DAILY@0800 [facility] Last Admin: 01/12/19 08:09 Dose: 500 mg Documented by: Nutritional Formula (Tang - Oketo Flavor) 1 packet PO BIDCM [facility] Last Admin: 01/12/19 08:09 Dose: 1 packet Documented by: Nutritional Formula (Lactose Free) (Glucerna Shake) 120 ml PO TIDCM [facility] Last Admin: 01/12/19 08:09 Dose: 120 ml Documented by: Ondansetron HCl (Zofran) 4 mg IV Q8H PRN PRN PRN Reason: NAUSEA/VOMITING Medical Necessity - Tobacco Use Smoking Status: Former smoker Assessment/Plan All Active Problems (Last Reviewed 01/10/19 @ 19:48 by Ilan Pichardo DO) Severe sepsis (Acute) Left leg cellulitis (Acute) Blood infection (Resolved) Recurrent infections (Acute) UTI (urinary tract infection) (Resolved) Cellulitis of left lower extremity (Acute) Sepsis (Acute) Hyperglycemia (Acute) The patient is a 33-year-old male with a past medical history of paraplegia, diabetes mellitus type 2, hypertension and obesity who was admitted on 01/10 for increasing redness of left lower extremity, multiple decubitus ulcer, present on admission. He is known to have left posterior heel decubitus ulcer. White blood cell count was elevated at 12.6 with 76% neutrophils. Hemoglobin and platelets were normal. Sodium was mildly decreased at 135. Lactic acid was elevated at 2.5. ESR was 63 and the CRP is 211. A PCR for MRSA on the wound drainage was positive. Blood cultures and a wound culture were sent from the emergency department. X-ray of the left foot showed no fracture or dislocation, osteopenia and soft tissue swelling. He was admitted to the hospital with a diagnosis of severe sepsis secondary to left lower extremity cellulitis secondary to MRSA. He was started on vancomycin. Has had MRSA infections in the past. Admits to going to a ball game and sitting for a prolonged period of time WITHOUT his roho cushion. Impressions 1. severe sepsis due to cellulitis of the Left LE due to MRSA: ESR 63, CRP 211. Lactic acid 2.5. Mild leukocytosis 12.6 thousand with 76% neutrophils. MRI of left foot shows osteomyelitis of calcaneum. ID is consulted. Patient is being seen by wound care nurse. Wound photos reviewed. Preliminary culture is growing staphylococcal species and gram-negative christiana. On IV antibiotics, vancomycin and Zosyn. 2. multiple decubitus ulcers, present on admission a. R lateral malleolus - stage 2 b. R ischium stage 2 c. Left heel - stage 3 d. left lateral calf - stage 2 e. left ischium - difficult to stage due to large amount of slough: 3. Paraplegia, chronic from 2009 after cavernous hemangioma of his spine: 4. Diabetes mellitus type 2: Blood sugar is reasonably controlled. Continue Accu-Chek before meals and at bedtime. 5. Obesity: Nutrition is consulted 6. History of hypersomnolence: Patient will need outpatient polysomnography. 7. Hypertension: Blood pressure is controlled. Microbiology Past 72 Hours 01/11/19 12:00 Urine Catheter - Catheter Urine Culture - Preliminary Culture exhibits no growth. 01/10/19 21:15 Wound - Heel, Left Gram Stain - Final 01/10/19 21:15 Wound - Heel, Left Wound Culture - Preliminary Staphylococcus species Gram negative christiana Laboratory Results 01/11/19 12:00: Urine Color Yellow, Urine Clarity Sl. Cloudy, Urine pH 5.0, Ur Specific Sterrett 1.015, Urine Protein Negative, Urine Glucose (UA) Normal, Urine Ketones Negative, Urine Occult Blood 50 H, Urine Nitrite Negative, Urine Bilirubin Negative, Urine Urobilinogen 1 H, Ur Leukocyte Esterase 500 H, Urine RBC 0 SEEN, Urine WBC 0-5 SEEN, Ur Squamous Epith Cells 0 SEEN, Amorphous Sediment 1+, Urine Bacteria RARE, Urine Mucus 0 SEEN 01/11/19 17:10: POC Glucose 168 H 01/11/19 21:39: POC Glucose 177 H 01/11/19 23:03: Vancomycin Trough 14.6 01/12/19 06:27: POC Glucose 156 H 01/12/19 11:21: POC Glucose 171 H Active Medications Acetaminophen (Tylenol) 650 mg PO Q6H PRN PRN PRN Reason: Mild Pain (1-3)/Temp > 100.7 F Last Admin: 01/12/19 01:44 Dose: 650 mg Documented by: Dextrose (D50w Syringe) 0 gm IV X1 PRN; Protocol PRN Reason: Hypoglycemia Enoxaparin Sodium (Lovenox) 40 mg SC DAILY@1000 J[facility] Last Admin: 01/12/19 10:30 Dose: 40 mg Documented by: Glucagon () 1 mg IM .X1 PRN PRN Reason: Hypoglycemia Vancomycin IV Pharmacy to Dose (1 ea/ Sodium Chloride) 500 mls @ 250 mls/hr IV X1 PRN; Protocol PRN Reason: Rx to Dose Vancomycin HCl 1,500 mg/ (Sodium Chloride) 530 mls @ 250 mls/hr IV Q8H [facility] Last Admin: 01/12/19 07:24 Dose: 250 mls/hr Documented by: Piperacillin Sod/Tazobactam (Sod 3.375 gm/ Sodium Chloride) 50 mls @ 12.5 mls/hr IV Q8 [facility] Ibuprofen (Motrin) 400 mg PO Q4H PRN PRN PRN Reason: Mild Pain (1-3)/Temp > 100.7 F Insulin Human Lispro (Humalog Kwikpen (Bkc)) 0 unit SQ TIDAC [facility]; Protocol Last Admin: 01/12/19 06:28 Dose: 1 units Documented by: Lactobacillus Acidophilus (Acidophilus) 1 tablet PO BID [facility] Last Admin: 01/12/19 08:09 Dose: 1 tablet Documented by: Metformin HCl (Glucophage Xr) 500 mg PO DAILY@0800 [facility] Last Admin: 01/12/19 08:09 Dose: 500 mg Documented by: Nutritional Formula (Tang - Oketo Flavor) 1 packet PO BIDCM [facility] Last Admin: 01/12/19 08:09 Dose: 1 packet Documented by: Nutritional Formula (Lactose Free) (Glucerna Shake) 120 ml PO TIDCM [facility] Last Admin: 01/12/19 08:09 Dose: 120 ml Documented by: Ondansetron HCl (Zofran) 4 mg IV Q8H PRN PRN PRN Reason: NAUSEA/VOMITING Code Visit Inpatient E&M: 83336 Subs Hosp L3
[2019-01-12] MEDS: Enoxaparin 40 MG/0.4 ML Syringe SC (10:30)
[2019-01-12 11:35] LABS: Bedside Glucose 171 mg/dL (70-110)
[2019-01-12 14:00] VITALS: BP 144/76; PULSE 93; RESP 18; TEMP 36.8; O2SAT 96
[2019-01-12 15:42] LABS: Vancomycin, Trough Level 15.1 ug/mL (5.0-15.0)
--- NOTE | 2019-01-12 16:20 | PCM.HP.ID ---
Problem List (1) Sepsis Status: Acute Reason for Consult: osteo Consulted by: Dr. Mandujano History of Present Illness: The patient is a 33 year old M with paraplegia, presented with one day of worsening LLE redness, swelling, and drainage. Has heel ulcer, has not been to see wound care. Drainage was heavy, serous. No pain given his spinal cord injury. No fever or chills. [place] tired. Also with worsened ischial ulcers after he sat in wheelchair without a cushion for a long period of time. Not on abx for past 2 months. Has grown MRSA and PsA in the past from his foot ulcer. Admitted here, started on vanc, leg less red, seen by wound care. Full ROS performed and neg except as noted above. 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) Allergies/Adverse Reactions: Allergies No Known Allergies Allergy (Verified 01/10/19 14:16) Home Medications: Ambulatory Orders Medication Instructions Recorded metFORMIN (XR) [Glucophage Xr] 500 mg PO DAILY 01/10/19 - Social History SMOKING STATUS:: Former smoker Vital Signs Temp Pulse Resp BP Pulse Ox 98.2 F 93 18 144/76 H 96 01/12/19 14:00 01/12/19 14:00 01/12/19 14:00 01/12/19 14:00 01/12/19 14:00 Oxygen Delivery Method Room Air Weight: 147.8 kg Body Mass Index (BMI) 37.6 Microbiology Past 72 Hours 01/11/19 12:00 Urine Culture - Preliminary Urine Catheter - Catheter Culture exhibits no growth. 01/10/19 21:15 Gram Stain - Final Wound - Heel, Left Wound Culture - Preliminary Staphylococcus species Gram negative christiana Laboratory Tests Past 24 Hrs 01/11/19 01/12/19 23:03 15:00 Vancomycin Trough 14.6 15.1 H - Other Studies Radiology: [] reviewed Other Studies: [] Route of nutrition/ use of supplements: [] Nutritional Intake: [] IV Site: [] Lee Catheter: [] - Physical Exam General: Alert, Oriented x3, Cooperative, No apparent distress HEENT: Atraumatic, PERRLA, EOMI Neck: Supple, No Nodes Lungs: Clear to auscultation, Normal air movement Cardiovascular: Regular rate, Regular Rhythm, No murmurs Abdomen: Soft, Non Tender, Non-Distended, Obese Extremities: Edema Skin: Ulcer/ Wound - reviewed photos of bilateral ischial ulcers and L heel ulcer IV Site: Peripheral, without redness Musculoskeletal: No Tenderness to Palpation of Joints or Extremities Neurological: Cranial nerves II-XII grossly intact, - - paraplegic - Assessment/Plan Antibiotics: [] Assessment/Plan: [] Active and Suspected Problems (Last Reviewed 01/10/19 @ 19:48 by Ilan Pichardo DO) Severe sepsis (Acute) Left leg cellulitis (Acute) severe sepsis on presentation due to L heel osteo - prior wound cxs with MRSA, proteus, and PsA. Wound cx here with staph and GNR. MRI shows osteo. Will consult podiatry for eval. Also potential infection source is his macerated bilateral ischial ulcers. Will consult Dr. Granados with plastic surgery for eval. May need MRI, debridement. Diverting ostomy will also have to be a consideration given his size and difficulty with home care. Continue vanc. Will add zosyn for GNR and anaerobic coverage. Will order cx of ischial wound. D/w wound care and Dr. Mccann. Will follow, thank you.
[2019-01-12 16:40] LABS: Bedside Glucose 169 mg/dL (70-110)
--- NOTE | 2019-01-12 17:04 | CON.PCM_ITS ---
Problem List (1) Ulcer of left lower extremity with fat layer exposed Status: Acute (2) Ulcer of right lower extremity with fat layer exposed Status: Acute (3) Type 2 diabetes mellitus Status: Chronic (4) 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 Reason for Consult Date of Consultation: 01/12/19 Reason for Consultation: bilateral lower extremity ulcers History of Present Illness: The patient is a 33-year-old male with a past medical history of paraplegia, diabetes mellitus type 2, hypertension and obesity who presented to the emergency department at [facility] on 01/10/2019 complaining of increasing redness of the left lower extremity. He has a history of chronic wounds to bilateral lower extremity as well as chronic left heel ulcer. He used to see wound care center in [place], but says they stopped taking his insurance and he has just been treating his wounds for the last year or so on his own. He feels everything worsened Thursday when he sat at a tractor pull for many hours without his rho cushion and with his legs down in dependent position. Currently patient says he is feeling much better since he was admitted. He is resting comfortably in bed with family in the room. He has an appetite. He denies any current feelings of nausea, vomiting, fever, or chills. 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) Medical History: Medical History (Last Reviewed 01/10/19 @ 19:48 by Ilan Pichardo DO) Paralysis (Chronic) G83.9 Blood infection (Resolved) A41.9 11/05 Cavernous hemangioma (Chronic) D18.00 10/2009 Recurrent infections (Acute) B99.9 High blood pressure (Chronic) I10 Diabetes (Chronic) E11.9 UTI (urinary tract infection) (Resolved) N39.0 Allergies No Known Allergies Allergy (Verified 01/10/19 14:16) Home Medications: Ambulatory Orders Medication Instructions Recorded metFORMIN (XR) [Glucophage Xr] 500 mg PO DAILY 01/10/19 Surgical History: - - Spine surgery Psychiatric History: No pertinent psych hx Smoking Status: Former smoker - *Family History Maternal Family History: Family History (Last Reviewed 01/10/19 @ 19:48 by Ilan Pichardo DO) Mother Hypertension History Items: Hypertension Paternal Family History: Family History (Last Reviewed 01/10/19 @ 19:48 by Ilan Pichardo DO) Mother Hypertension History Items: - - Denies known paternal medical history including cardiac history. Review of Systems Constitutional: Denies: Anorexia, Chills, Fever HEENT: Denies: Head Aches, Sinus Congestion, Sinus Drainage Cardiovascular: Denies: Chest Pain, Palpitations Respiratory: Denies: Cough, Shortness of breath at rest, Sputum production Gastrointestinal: Denies: Abdominal Pain, Nausea, Vomiting Genitourinary: Denies: Dysuria Skin: Reports: - - bilateral lower extremity ulcers Neurological: Reports: - - Paraplegic Hematologic/ Lymphatic: Denies: Easy Bruising, Easy Bleeding Patient Problems: Active and Suspected Problems (Last Reviewed 01/10/19 @ 19:48 by Ilan Pichardo DO) Severe sepsis (Acute) Left leg cellulitis (Acute) Ulcer of left lower extremity with fat layer exposed (Acute) Ulcer of right lower extremity with fat layer exposed (Acute) - Physical Exam General: Alert, Oriented x3, Cooperative, No apparent distress Extremities: Capillary Refill Less than 3 Seconds - To distal digits of each foot, No Calf Tenderness, Edema - Bilateral lower extremity edema, Peripheral Pulses Normal - DP and PT pulses palpable bilateral Skin: Ulcer/ Wound - Ulcer to left calcaneus with fat layer exposed. The base is a mixture of granular tissue, adherent slough, some devitalized subcutaneous tissue, biofilm, and some slight surrounding hyperkeratotic tissue. There is no probing to bone, no tracking, no undermining, no purulence, no malodor, no surrounding or streaking cellulitis, and no significant increase in warmth to the area. Ulcers also appreciated to left lateral lower leg and right lateral malleolus with fat layer exposed. The base is a mixture of granular tissue, biofilm, adherent slough, and some surrounding hyperkeratotic tissue. There is no probing to bone, no tracking, no undermining, no purulence, no malodor, no surrounding or streaking cellulitis, no increased warmth to either of these sites. Musculoskeletal: Muscle Wasting, - - No muscle strength lower extremities Neurological: - - Patient is paraplegic Psych/Mental Status: Normal Affect, Appropriate Vital Signs Temp Pulse Resp BP Pulse Ox 98.2 F 93 18 144/76 H 96 01/12/19 14:00 01/12/19 14:00 01/12/19 14:00 01/12/19 14:00 01/12/19 14:00 Oxygen Delivery Method Room Air Weight: 147.8 kg Body Mass Index (BMI) 37.6 Intake and Output for Last 24 Hours 01/10/19 01/11/19 01/12/19 23:59 23:59 23:59 Intake Total 1463 / 1463 4223 / 4223 2606 / 2606 Output Total 150 / 150 3125 / 3125 700 / 700 Balance 1313 / 1313 1098 / 1098 1906 / 1906 Microbiology Past 72 Hours 01/11/19 12:00 Urine Culture - Preliminary Urine Catheter - Catheter Culture exhibits no growth. 01/10/19 21:15 Gram Stain - Final Wound - Heel, Left Wound Culture - Preliminary Staphylococcus species Gram negative christiana Laboratory Tests Past 24 Hrs 01/11/19 01/12/19 23:03 15:00 Vancomycin Trough 14.6 15.1 H POC Glucose 01/12/19 01/12/19 01/12/19 15:46 11:21 06:27 POC Glucose 169 H 171 H 156 H 01/11/19 01/11/19 21:39 17:10 POC Glucose 177 H 168 H Assessment/Plan All Active Problems (Last Reviewed 01/10/19 @ 19:48 by Ilan Pichardo DO) Severe sepsis (Acute) Left leg cellulitis (Acute) Ulcer of left lower extremity with fat layer exposed (Acute) Ulcer of right lower extremity with fat layer exposed (Acute) Blood infection (Resolved) Recurrent infections (Acute) UTI (urinary tract infection) (Resolved) Cellulitis of left lower extremity (Acute) Sepsis (Acute) Hyperglycemia (Acute) Ulcer of left lower extremity Ulcer left heel Ulcer of right lower extremity Resolved cellulitis DM Lower extremity edema Paraplegic Other comorbidities This patient was carefully examined and evaluated resting in his bed with multiple family members present. No leukocytosis noted today and vital signs are stable. Patient currently feels well and says he feels much better than when he was admitted. He currently is denying any feelings of nausea, vomiting, fever, chills. Wound cultures from left heel are showing growth of Staphylococcus species and gram-negative christiana. Infectious disease is currently following this patient and the patient is on IV antibiotics. Blood cultures pending. X-ray of the left foot read by radiologist as no fracture or di slocation, osteopenia and soft tissue swelling. Patient also had a left foot MRI completed. This was read by radiologist as showing some focal marrow edema of the posterior lateral calcaneus which is believed to be consistent with osteomyelitis in this area. This could be chronic due to chronicity of the ulcer overlying this site. There is some posterior skin thickening and subcutaneous edema, but no noted abscess or fluid collection. Ulcers to left heel, left lower leg, and right lateral malleolus were all carefully evaluated this evening. A subcutaneous debridement was performed to each of these aforementioned ulcer sites using a combination of a #3 curette and a #15 scalpel blade. No anesthesia was needed due to patient being a paraplegic. The ulcer sites were debrided free of adherent slough, biofilm, devitalized subcutaneous tissue, hyperkeratotic tissue. 100% of each ulcer site was debrided. Hemostasis was easily controlled using light pressure. The patient tolerated the debridement well with no complications. Left heel pre debridement measured 3.0x2.5x0.2 cm and post debridement measured 4.0x4.0x0.2 cm. Left lower leg pre debridement measured 1.4x0.9x0.1 cm and post debridement measured 1.5x1.1x0.1 cm. Right lateral malleolus pre debridement measured 2.8x1.4x0.2 cm and post debridement measured 3.0x1.5x0.2 cm. Following debridement there is no deep probing, tracking, or undermining appreciated to any of the ulcer sites. Cellulitis appears to have resolved. No drainage, or malodor noted to any of the ulcer sites. No bogginess or fluctuance appreciated. Each ulcer site was then dressed with aquacel ag to the base, followed by 4x4s, abd, kerlix, and hanane bandages. Patient is instructed to keep pressure off of all ulcer sites at all times while seated or laying with the assistance of pillows. Ulcer sites are to be completely floated over the edges of pillows so there is nothing but air in contact with the ulcer sites. Patient states he is not interested in any surgical procedures at this time. Since the patient's cellulitis has resolved, he no longer has leukocytosis, his vital signs remain stable, and patient feels well overall, we will plan to monitor this patient closely at this time with local wound care and IV antibiotics per ID. Again all 3 ulcers currently appear stable to lower extremities during evaluation. Patient also has right and left ischial ulcers being treated by Dr. Granados. Medical management and DVT prophylaxis appreciated by primary team. Podiatry will continue to follow this patient while in house.
--- NOTE | 2019-01-12 17:10 | PCM.RX.CS ---
Consult Pharmacy has been consulted to manage selected antiobiotic: Vancomycin Type of Consult: Follow-up Suspected Infection: Skin/Soft tissue Prior Doses of Antibiotics Received/Current Regimen: Currently on 1500mg iv q8h. Labs: Sodium 136 mmol/L (136-145) 01/11/19 06:10 Potassium 3.7 mmol/L (3.5-5.1) 01/11/19 06:10 Chloride 105 mmol/L (98-107) 01/11/19 06:10 Carbon Dioxide 23.0 mmol/L (21.0-32.0) 01/11/19 06:10 8 (5-15) 01/11/19 06:10 BUN 8 mg/dL (7-18) 01/11/19 06:10 0.41 mg/dL (0.70-1.30) L 01/11/19 06:10 Est GFR (MDRD) Af Amer 304 mL/min (>60) 01/11/19 06:10 Est GFR (MDRD) Non-Af 251 mL/min (>60) 01/11/19 06:10 19.5 RATIO (10-20) 01/11/19 06:10 Glucose 167 mg/dL (74-106) H 01/11/19 06:10 Vancomycin Trough 15.1 ug/mL (5.0-15.0) H 01/12/19 15:00 Microbiology: Microbiology 01/11/19 12:00 Urine Catheter - Catheter Urine Culture - Preliminary Culture exhibits no growth. 01/10/19 21:15 Wound - Heel, Left Gram Stain - Final 01/10/19 21:15 Wound - Heel, Left Wound Culture - Preliminary Staphylococcus species Gram negative christiana Weight used for dosin kg Estimated Creatinine Clearance: ~182ml/min Goal Trough: 15-20 mcg/mL Pharmacy Plan for Drug Dosing: Trough level 01.12.19 reported as 15.1 (goal range 15-20 mcg/ml). Will continue same dosage regimen of 1500mg iv q8h and get repeat trough level on 01.16.19. Pharmacy Service will continue to monitor and adjust dosing as required. Follow-Up Labs: Trough Vancomycin - .30.19 @1500 before 1530 dose.
[2019-01-12 21:55] VITALS: BP 152/84; PULSE 96; RESP 18; TEMP 36.6; O2SAT 98
[2019-01-12 22:56] LABS: Bedside Glucose 197 mg/dL (70-110)
[2019-01-13 03:30] VITALS: BP 148/84; PULSE 91; RESP 16; TEMP 36.6; O2SAT 97
[2019-01-13] MEDS: Insulin Lispro 100 UNIT/ML INSULN.PEN SQ ×3 (06:33→17:42)
[2019-01-13 06:45] LABS: Bedside Glucose 155 mg/dL (70-110)
[2019-01-13] MEDS: Enoxaparin 40 MG/0.4 ML Syringe SC (08:31)
[2019-01-13] MEDS: metFORMIN (XR) 500 MG Tablet PO (08:31)
[2019-01-13] MEDS: Glucerna Shake 120 ML LIQUID PO ×3 (08:31→17:38)
[2019-01-13 08:37] VITALS: BP 162/99; PULSE 96; RESP 18; TEMP 36.6; O2SAT 96
--- NOTE | 2019-01-13 10:31 | PN.ID_ITS ---
Patient Problems: Active and Suspected Problems (Last Reviewed 01/10/19 @ 19:48 by Ilan Pichardo DO) Severe sepsis (Acute) Left leg cellulitis (Acute) Ulcer of left lower extremity with fat layer exposed (Acute) Ulcer of right lower extremity with fat layer exposed (Acute) Subjective: Feeling ok, bedside I&D of foot yesterday, no fever, no n/v/d. - Physical Exam General: Alert, Cooperative, No apparent distress Lungs: Clear to auscultation, Normal air movement Cardiovascular: Regular rate, Regular Rhythm Abdomen: Soft, Non Tender, Non-Distended Skin: Ulcer/ Wound - foot wrapped Vital Signs Temp Pulse Resp BP Pulse Ox 97.9 F 96 18 162/99 H 96 01/13/19 08:37 01/13/19 08:37 01/13/19 08:37 01/13/19 08:37 01/13/19 08:37 Oxygen Delivery Method Room Air Weight: 147.8 kg Body Mass Index (BMI) 37.6 Intake and Output for Last 24 Hours 01/11/19 01/12/19 01/13/19 23:59 23:59 23:59 Intake Total 4223 / 4223 4695.5 / 4695.5 1041 / 1041 Output Total 3125 / 3125 1625 / 1625 1450 / 1450 Balance 1098 / 1098 3070.5 / 3070.5 -409 / -409 Microbiology Past 72 Hours 01/10/19 17:57 Blood Culture - Preliminary Blood Culture (Wb) - Left Forearm No growth in 48 hours. 01/10/19 17:14 Blood Culture - Preliminary Blood Culture (Wb) - Left Forearm No growth in 48 hours. 01/10/19 21:15 Gram Stain - Final Wound - Heel, Left Wound Culture - Final Meth. resistant Staph. aureus Pseudomonas aeroginosa 01/11/19 12:00 Urine Culture - Preliminary Urine Catheter - Catheter Culture exhibits no growth. Laboratory Tests Past 24 Hrs 01/12/19 15:00 Vancomycin Trough 15.1 H POC Glucose 01/13/19 01/12/19 01/12/19 06:31 22:09 15:46 POC Glucose 155 H 197 H 169 H 01/12/19 11:21 POC Glucose 171 H Medical Necessity - Tobacco Use Smoking Status: Former smoker Route of nutrition/ use of supplements: [] Nutritional Intake: [] IV Site: [] Lee Catheter: [] - Assessment/Plan Antibiotics: [] Assessment/Plan: [] Active and Suspected Problems (Last Reviewed 01/10/19 @ 19:48 by Ilan Pichardo DO) Severe sepsis (Acute) Left leg cellulitis (Acute) severe sepsis on presentation due to L heel osteo - prior wound cxs with MRSA, proteus, and PsA. Wound cx here with MRSA and PsA. MRI shows osteo. Consulted podiatry and Dr. Granados. On vanc/zosyn, will change to iv vanc and po cipro/flagyl, plan on 6 week course, stop date 02/22/19, weekly bmp, cbc, esr, LFT, and vanc trough. Will order picc. Wrote rx for labs and abx. ID followup with me in 3 weeks at wound center. Will follow, d/w primary team and behavioral health case manager.
--- NOTE | 2019-01-13 11:00 | CT_ITS ---
STUDY: CT PELVIS WITHOUT CONTRAST REASON FOR EXAM: Male, 33 years old. RADIATION DOSAGE (If Supplied By Facility): CTDIvol = ( 32.87 ) mGy, DLP = ( 1313.84 ) mGycm TECHNIQUE: Transaxial imaging of the pelvis was performed with oral contrast, and without intravenous administration of contrast material. Individualized dose optimization techniques were used for this CT. COMPARISON: None. FINDINGS: There is soft tissue lesion to the right of the midline in the left area. extending deeply and reaching the rectum with poor delineation of the fat in between consistent with bed sore ulcer to evaluate this finding in a better way MRI is recommended. The coccyx is angulated posteriorly, no evidence of bony involvement to suggest osteomyelitis. Otherwise the rectum and the bladder as well as the pelvis are within normal limits. CT/Pelvis without IV Contrast IMPRESSION: Bed sore ulceration the almost reaching the periphery of the rectum. MRI is recommended for better evaluation. No osteomyelitis Electronically Signed: Charbel Murray, at 12:52 EDT Tel , Service support ,
--- NOTE | 2019-01-13 11:01 | PCM.PN.HOSP ---
Patient Problems: Active and Suspected Problems (Last Reviewed 01/10/19 @ 19:48 by Ilan Pichardo DO) Severe sepsis (Acute) Left leg cellulitis (Acute) Ulcer of left lower extremity with fat layer exposed (Acute) Ulcer of right lower extremity with fat layer exposed (Acute) Subjective: Patient declined for surgical debridement of bedsore. Dr. Granados is being consulted and discussed with him. Dr. Mccallum also saw the patient and discussed with him. Patient had a concern of not getting close interval follow-up in wound care center and usually does not have opening until 2 months. Vitals/I&O's: Vital Signs Temp Pulse Resp BP Pulse Ox 97.9 F 96 18 162/99 H 96 01/13/19 08:37 01/13/19 08:37 01/13/19 08:37 01/13/19 08:37 01/13/19 08:37 Oxygen Delivery Method Room Air Weight: 325 lb 13.491 oz Body Mass Index (BMI) 37.6 Intake and Output for Last 24 Hours 01/11/19 01/12/19 01/13/19 23:59 23:59 23:59 Intake Total 4223 / 4223 4695.5 / 4695.5 1041 / 1041 Output Total 3125 / 3125 1625 / 1625 1450 / 1450 Balance 1098 / 1098 3070.5 / 3070.5 -409 / -409 General: Alert, Oriented x3, Cooperative HEENT: Atraumatic, PERRLA, EOMI, Normocephalic Neck: Supple, No JVD, Negative Carotid Bruits Lungs: Clear to auscultation, No wheeze, No rales, Diminished - Bilateral lung bases Cardiovascular: Regular rate, Regular Rhythm, Normal S1, Normal S2, No murmurs Abdomen: Bowel Sounds Present, Soft, Non Tender, Non-Distended Extremities: Capillary Refill Less than 3 Seconds, Edema - Slight edema both legs Skin: Ulcer/ Wound - Bilateral ischial ulcer. Left heel ulcer. Right lateral malleolus ulcer Musculoskeletal: No Tenderness to Palpation of Joints or Extremities, Arthritic Changes, Muscle Wasting Neurological: Cranial nerves II-XII grossly intact Psych/Mental Status: Normal Affect, Appropriate Microbiology Past 72 Hours 01/10/19 21:15 Wound - Heel, Left Gram Stain - Final 01/10/19 21:15 Wound - Heel, Left Wound Culture - Final Meth. resistant Staph. aureus Pseudomonas aeroginosa 01/10/19 21:15 Wound - Heel, Left Anaerobic Culture - Preliminary Checking for anaerobes, further studies to follow. 01/10/19 17:57 Blood Culture (Wb) - Left Forearm Blood Culture - Preliminary No growth in 48 hours. 01/10/19 17:14 Blood Culture (Wb) - Left Forearm Blood Culture - Preliminary No growth in 48 hours. 01/11/19 12:00 Urine Catheter - Catheter Urine Culture - Preliminary Culture exhibits no growth. Laboratory Results 01/12/19 11:21: POC Glucose 171 H 01/12/19 15:00: Vancomycin Trough 15.1 H 01/12/19 15:46: POC Glucose 169 H 01/12/19 22:09: POC Glucose 197 H 01/13/19 06:31: POC Glucose 155 H Current Medications Acetaminophen (Tylenol) 650 mg PO Q6H PRN PRN PRN Reason: Mild Pain (1-3)/Temp > 100.7 F Last Admin: 01/12/19 21:49 Dose: 650 mg Documented by: Ciprofloxacin HCl (Cipro) 750 mg PO BID [facility] Dextrose (D50w Syringe) 0 gm IV X1 PRN; Protocol PRN Reason: Hypoglycemia Enoxaparin Sodium (Lovenox) 40 mg SC DAILY@1000 [facility] Last Admin: 01/13/19 08:31 Dose: 40 mg Documented by: Glucagon () 1 mg IM .X1 PRN PRN Reason: Hypoglycemia Vancomycin IV Pharmacy to Dose (1 ea/ Sodium Chloride) 500 mls @ 250 mls/hr IV X1 PRN; Protocol PRN Reason: Rx to Dose Vancomycin HCl 1,500 mg/ (Sodium Chloride) 530 mls @ 250 mls/hr IV Q8H [facility] Last Admin: 01/13/19 07:08 Dose: 250 mls/hr Documented by: Ibuprofen (Motrin) 400 mg PO Q4H PRN PRN PRN Reason: Mild Pain (1-3)/Temp > 100.7 F Insulin Human Lispro (Humalog Kwikpen (Bkc)) 0 unit SQ TIDAC [facility]; Protocol Last Admin: 01/13/19 06:33 Dose: 1 units Documented by: Lactobacillus Acidophilus (Acidophilus) 1 tablet PO BID [facility] Last Admin: 01/13/19 08:31 Dose: 1 tablet Documented by: Metformin HCl (Glucophage Xr) 500 mg PO DAILY@0800 [facility] Last Admin: 01/13/19 08:31 Dose: 500 mg Documented by: Metronidazole (Flagyl) 500 mg PO TID [facility] Nutritional Formula (Tang - [place] Flavor) 1 packet PO BIDCM [facility] Last Admin: 01/13/19 08:31 Dose: 1 packet Documented by: Nutritional Formula (Lactose Free) (Glucerna Shake) 120 ml PO TIDCM [facility] Last Admin: 01/13/19 08:31 Dose: 120 ml Documented by: Ondansetron HCl (Zofran) 4 mg IV Q8H PRN PRN PRN Reason: NAUSEA/VOMITING Sodium Hypochlorite (Dakins Solution 0.25% (1/2 Strength)) 1 applic TOPICAL DAILY [facility]; Protocol Medical Necessity - Tobacco Use Smoking Status: Former smoker Assessment/Plan All Active Problems (Last Reviewed 01/10/19 @ 19:48 by Ilan Pichardo DO) Severe sepsis (Acute) Left leg cellulitis (Acute) Ulcer of left lower extremity with fat layer exposed (Acute) Ulcer of right lower extremity with fat layer exposed (Acute) Blood infection (Resolved) Recurrent infections (Acute) UTI (urinary tract infection) (Resolved) Cellulitis of left lower extremity (Acute) Sepsis (Acute) Hyperglycemia (Acute) The patient is a 33-year-old male with a past medical history of paraplegia, diabetes mellitus type 2, hypertension and obesity who was admitted on 01/10 for increasing redness of left lower extremity, multiple decubitus ulcer, present on admission. He is known to have left posterior heel decubitus ulcer. Impressions 1. severe sepsis (leukocytosis with left shift, lactic acidosis, elevated ESR and CRP) due to cellulitis of the Left LE due to MRSA: ESR 63, CRP 211. Lactic acid 2.5. Mild leukocytosis 12.6 thousand with 76% neutrophils. MRI of left foot shows osteomyelitis of calcaneum. ID is consulted. Patient is being seen by wound care nurse. MRSA nasal screen positive. Wound photos reviewed. Wound culture of left heel reported MRSA and Pseudomonas. Preliminary wound culture of buttock reported gram-negative christiana and gram-positive organism. On IV antibiotics, vancomycin and Zosyn. CT scan of pelvis reported Bed sore ulceration the almost reaching the periphery of the rectum. Patient declined/refused for the surgery. Plan is PICC line and discharge on IV antibiotics tomorrow a.m. Follow-up with the wound center and may need MRI to further delineate proximity of rectum to pressure ulcer. 2. multiple decubitus ulcers, present on admission a. R lateral malleolus - stage 2 b. R ischium stage 2 c. Left heel - stage 3 d. left lateral calf - stage 2 e. left ischium - difficult to stage due to large amount of slough: 3. Paraplegia, chronic from 2009 after cavernous hemangioma of his spine: 4. Diabetes mellitus type 2: Blood sugar is reasonably controlled. Continue Accu-Chek before meals and at bedtime. 5. Obesity: Nutrition is consulted 6. History of hypersomnolence: Patient will need outpatient polysomnography. 7. Hypertension: Blood pressure is controlled. Microbiology Past 72 Hours 01/12/19 13:00 Wound - Buttock Wound Culture - Preliminary Gram negative christiana Gram positive organism 01/10/19 21:15 Wound - Heel, Left Gram Stain - Final 01/10/19 21:15 Wound - Heel, Left Wound Culture - Final Meth. resistant Staph. aureus Pseudomonas aeroginosa 01/10/19 21:15 Wound - Heel, Left Anaerobic Culture - Preliminary Checking for anaerobes, further studies to follow. 01/10/19 17:57 Blood Culture (Wb) - Left Forearm Blood Culture - Preliminary No growth in 48 hours. 01/10/19 17:14 Blood Culture (Wb) - Left Forearm Blood Culture - Preliminary No growth in 48 hours. 01/11/19 12:00 Urine Catheter - Catheter Urine Culture - Preliminary Culture exhibits no growth. Laboratory Results 01/12/19 15:00: Vancomycin Trough 15.1 H 01/12/19 15:46: POC Glucose 169 H 01/12/19 22:09: POC Glucose 197 H 01/13/19 06:31: POC Glucose 155 H 01/13/19 12:17: POC Glucose 193 H Active Medications Acetaminophen (Tylenol) 650 mg PO Q6H PRN PRN PRN Reason: Mild Pain (1-3)/Temp > 100.7 F Last Admin: 01/12/19 21:49 Dose: 650 mg Documented by: Ciprofloxacin HCl (Cipro) 750 mg PO BID [facility] Dextrose (D50w Syringe) 0 gm IV X1 PRN; Protocol PRN Reason: Hypoglycemia Enoxaparin Sodium (Lovenox) 40 mg SC DAILY@1000 [facility] Last Admin: 01/13/19 08:31 Dose: 40 mg Documented by: Glucagon () 1 mg IM .X1 PRN PRN Reason: Hypoglycemia Vancomycin IV Pharmacy to Dose (1 ea/ Sodium Chloride) 500 mls @ 250 mls/hr IV X1 PRN; Protocol PRN Reason: Rx to Dose Vancomycin HCl 1,500 mg/ (Sodium Chloride) 530 mls @ 250 mls/hr IV Q8H [facility] Last Admin: 01/13/19 07:08 Dose: 250 mls/hr Documented by: Ibuprofen (Motrin) 400 mg PO Q4H PRN PRN PRN Reason: Mild Pain (1-3)/Temp > 100.7 F Insulin Human Lispro (Humalog Kwikpen (Bkc)) 0 unit SQ TIDAC [facility]; Protocol Last Admin: 01/13/19 13:35 Dose: 2 units Documented by: Lactobacillus Acidophilus (Acidophilus) 1 tablet PO BID [facility] Last Admin: 01/13/19 08:31 Dose: 1 tablet Documented by: Metformin HCl (Glucophage Xr) 500 mg PO DAILY@0800 [facility] Last Admin: 01/13/19 08:31 Dose: 500 mg Documented by: Metronidazole (Flagyl) 500 mg PO TIDCM [facility] Last Admin: 01/13/19 13:36 Dose: 500 mg Documented by: Nutritional Formula (Tang - [place] Flavor) 1 packet PO BIDCM [facility] Last Admin: 01/13/19 08:31 Dose: 1 packet Documented by: Nutritional Formula (Lactose Free) (Glucerna Shake) 120 ml PO TIDCM [facility] Last Admin: 01/13/19 13:36 Dose: 120 ml Documented by: Ondansetron HCl (Zofran) 4 mg IV Q8H PRN PRN PRN Reason: NAUSEA/VOMITING Sodium Hypochlorite (Dakins Solution 0.25% (1/2 Strength)) 1 applic TOPICAL DAILY [facility]; Protocol Clinical Impression(s) from Imaging Studies Foot X-Ray 01/10/19 17:35 IMPRESSION: No fracture or dislocation. Osteopenia. Soft tissue swelling. Electronically Signed: Mao Sultana, at 17:55 EDT Tel , Service support , Lower Extremity MRI 01/11/19 14:30 IMPRESSION: Osteomyelitis of the posterior calcaneus. Posterior skin thickening and subcutaneous edema. No abscess or fluid collection. Electronically Signed: Reymundo Joiner MD at 17:58 EDT , Service support , Pelvis CT 01/13/19 11:00 IMPRESSION: Bed sore ulceration the almost reaching the periphery of the rectum. MRI is recommended for better evaluation. No osteomyelitis Code Visit Inpatient E&M: 83699 Subs Hosp L3
--- NOTE | 2019-01-13 11:31 | PCM.CONS.GEN ---
Reason for Consult Date of Consultation: 01/13/19 Reason for Consultation: Bilateral ischial pressure sores. REFERRING PHYSICIAN: Dr. Mandujano. MANUFACTURING PROCESS TECHNICIAN: Dr. Granados. History of Present Illness: The patient is a 33 year old M who is a paraplegic and was recently admitted because of increased redness of his left lower extremity. Patient also had some general malaise. He has multiple ulcerations on his left heel, left lateral leg, right lateral ankle, and bilateral ischial pressure sores. He denies fever. Podiatry has been consulted for his ulcerations left heel, left lateral leg, and right lateral ankle. He had a CT Pelvis earlier today which showed the presence of the pressure sores and no radiographic evidence of osteomyelitis at this time. Recent cultures of the left heel shows Pseudomonas aeroginosa and MRSA. He is currently on Cipro, Vancomycin, and Flagyl. Ischial pressure sore culture was done yesterday and is pending thus far. II have been asked to evaluate this patient for surgical options for treatment. 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) Medical History: Medical History (Last Reviewed 01/10/19 @ 19:48 by Ilan Pichardo DO) Paralysis (Chronic) G83.9 Blood infection (Resolved) A41.9 11/05 Cavernous hemangioma (Chronic) D18.00 10/2009 Recurrent infections (Acute) B99.9 High blood pressure (Chronic) I10 Diabetes (Chronic) E11.9 UTI (urinary tract infection) (Resolved) N39.0 Allergies No Known Allergies Allergy (Verified 01/10/19 14:16) Current Medications Acetaminophen (Tylenol) 650 mg PO Q6H PRN PRN PRN Reason: Mild Pain (1-3)/Temp > 100.7 F Last Admin: 01/12/19 21:49 Dose: 650 mg Documented by: Ciprofloxacin HCl (Cipro) 750 mg PO BID [facility] Dextrose (D50w Syringe) 0 gm IV X1 PRN; Protocol PRN Reason: Hypoglycemia Enoxaparin Sodium (Lovenox) 40 mg SC DAILY@1000 [facility] Last Admin: 01/13/19 08:31 Dose: 40 mg Documented by: Glucagon () 1 mg IM .X1 PRN PRN Reason: Hypoglycemia Vancomycin IV Pharmacy to Dose (1 ea/ Sodium Chloride) 500 mls @ 250 mls/hr IV X1 PRN; Protocol PRN Reason: Rx to Dose Vancomycin HCl 1,500 mg/ (Sodium Chloride) 530 mls @ 250 mls/hr IV Q8H [facility] Last Admin: 01/13/19 07:08 Dose: 250 mls/hr Documented by: Ibuprofen (Motrin) 400 mg PO Q4H PRN PRN PRN Reason: Mild Pain (1-3)/Temp > 100.7 F Insulin Human Lispro (Humalog Kwikpen (Bkc)) 0 unit SQ TIDAC [facility]; Protocol Last Admin: 01/13/19 06:33 Dose: 1 units Documented by: Lactobacillus Acidophilus (Acidophilus) 1 tablet PO BID [facility] Last Admin: 01/13/19 08:31 Dose: 1 tablet Documented by: Metformin HCl (Glucophage Xr) 500 mg PO DAILY@0800 [facility] Last Admin: 01/13/19 08:31 Dose: 500 mg Documented by: Metronidazole (Flagyl) 500 mg PO TID [facility] Nutritional Formula (Tang - Gleason Flavor) 1 packet PO BIDCM [facility] Last Admin: 01/13/19 08:31 Dose: 1 packet Documented by: Nutritional Formula (Lactose Free) (Glucerna Shake) 120 ml PO TIDCM [facility] Last Admin: 01/13/19 08:31 Dose: 120 ml Documented by: Ondansetron HCl (Zofran) 4 mg IV Q8H PRN PRN PRN Reason: NAUSEA/VOMITING Sodium Hypochlorite (Dakins Solution 0.25% (1/2 Strength)) 1 applic TOPICAL DAILY [facility]; Protocol Home Medications: Ambulatory Orders Medication Instructions Recorded metFORMIN (XR) [Glucophage Xr] 500 mg PO DAILY 01/10/19 Ciprofloxacin [Cipro] 750 mg PO BID 40 Days #120 tab 01/13/19 metroNIDAZOLE [Flagyl] 500 mg PO TID 40 Days #120 tab 01/13/19 Insulin Glargine [Lantus SoloStar 15 units SUBCUT BID #1 pen 01/14/19 Pen] Insulin Lispro [Humalog KwikPen] See Protocol SQ TIDAC #1 insuln.pen 01/14/19 Smz/Tmp Ds [Bactrim Ds] 2 tab PO BID #160 tab 01/14/19 Surgical History: - - Spine surgery Psychiatric History: No pertinent psych hx Smoking Status: Former smoker - *Family History Maternal Family History: Family History (Last Reviewed 01/10/19 @ 19:48 by Ilan Pichardo DO) Mother Hypertension History Items: Hypertension Paternal Family History: Family History (Last Reviewed 01/10/19 @ 19:48 by Ilan Pichardo DO) Mother Hypertension History Items: - - Denies known paternal medical history including cardiac history. Review of Systems Comment: Constitutional: Reports: Chills. Denies: Anorexia, Fever, Night Sweats. Eyes: Denies: Blurred vision, Double vision. HEENT: Denies: Head Aches, Sinus Congestion, Sinus Drainage. Cardiovascular: Denies: Chest Pain, Palpitations. Respiratory: Denies: Cough, Shortness of breath at rest, Sputum production. Gastrointestinal: Denies: Abdominal Pain, Nausea, Vomiting. Genitourinary: Denies: Dysuria. Musculoskeletal: Denies: Joint Pain, Joint Tenderness. Skin: Reports: Rash, Wounds. Neurological: Reports: - - Paraplegic. Psychiatric: Denies: Anxiety, Depression. Endocrine: Denies: Change in Body Habitus. Hematologic/ Lymphatic: Denies: Easy Bruising, Easy Bleeding, Hx of blood evens - Physical Exam General: Alert, No apparent distress. HEENT: PERRL. EOMI. Oral: Moist Mucosa. Neck: Supple, nontender. No cervical adenopathy. Lungs: Clear to auscultation. Cardiovascular: Regular rate, Regular Rhythm. Abdomen: Soft, Non-Distended. Extremities: No edema. Skin: - - Erythema of the left lower extremity. Patient has a superficial ulcer maceration of the left heel. Measures 5 x 5 x 0.1 cm. Has nonhealing ulcer left lateral leg. Some granulation tissue seen. Measures 2 x 2 x 0.1 cm. Has nonhealing ulcer right lateral ankle. Some granulation tissue seen. Measures 4 x 4 0.1 cm. Has bilateral ischial pressure sores. Scabbing present. Unstageable at present. On the left it measures 7 x 9 cm. On the right it measures 3 x 7 cm. No purulent drainage. Neurological: - - No clonus. No sensation in the lower extremities. CN II - XII grossly intact. Psych/Mental Status: Normal Affect, Appropriate. Vital Signs Temp Pulse Resp BP Pulse Ox 97.9 F 96 18 162/99 H 96 01/13/19 08:37 01/13/19 08:37 01/13/19 08:37 01/13/19 08:37 01/13/19 08:37 Oxygen Delivery Method Room Air Weight: 325 lb 13.491 oz Body Mass Index (BMI) 37.6 Intake and Output for Last 24 Hours 01/11/19 01/12/19 01/13/19 23:59 23:59 23:59 Intake Total 4223 / 4223 4695.5 / 4695.5 1041 / 1041 Output Total 3125 / 3125 1625 / 1625 1450 / 1450 Balance 1098 / 1098 3070.5 / 3070.5 -409 / -409 Microbiology Past 72 Hours 01/10/19 21:15 Gram Stain - Final Wound - Heel, Left Wound Culture - Final Meth. resistant Staph. aureus Pseudomonas aeroginosa Anaerobic Culture - Preliminary Checking for anaerobes, further studies to follow. 01/10/19 17:57 Blood Culture - Preliminary Blood Culture (Wb) - Left Forearm No growth in 48 hours. 01/10/19 17:14 Blood Culture - Preliminary Blood Culture (Wb) - Left Forearm No growth in 48 hours. 01/11/19 12:00 Urine Culture - Preliminary Urine Catheter - Catheter Culture exhibits no growth. Laboratory Tests Past 24 Hrs 01/12/19 15:00 Vancomycin Trough 15.1 H POC Glucose 01/13/19 01/12/19 01/12/19 06:31 22:09 15:46 POC Glucose 155 H 197 H 169 H 01/12/19 11:21 POC Glucose 171 H Diagnostic Data Foot X-Ray 01/10/19 17:35 IMPRESSION: No fracture or dislocation. Osteopenia. Soft tissue swelling. Electronically Signed: Mao Sultana, at 17:55 EDT Tel , Service support , Lower Extremity MRI 01/11/19 14:30 IMPRESSION: Osteomyelitis of the posterior calcaneus. Posterior skin thickening and subcutaneous edema. No abscess or fluid collection. Electronically Signed: Reymundo Joiner MD at 17:58 EDT , Service support , Pelvis CT 01/13/19 11:00 IMPRESSION: Bed sore ulceration the almost reaching the periphery of the rectum. MRI is recommended for better evaluation. No osteomyelitis Electronically Signed: Charbel Murray, at 12:52 EDT Tel , Service support , Assessment/Plan All Active Problems (Last Reviewed 01/10/19 @ 19:48 by Ilan Pichardo DO) Severe sepsis (Acute) Left leg cellulitis (Acute) Ulcer of left lower extremity with fat layer exposed (Acute) Ulcer of right lower extremity with fat layer exposed (Acute) Blood infection (Resolved) Recurrent infections (Acute) UTI (urinary tract infection) (Resolved) Cellulitis of left lower extremity (Acute) Sepsis (Acute) Hyperglycemia (Acute) 1. Right ischial pressure sore, Unstageable. 2. Left ischial pressure sore, Unstageable. 3. Nonhealing ulcer left lateral leg. 4. Nonhealing ulcer left heel. 5. Nonhealing ulcer right lateral ankle. 6. MRSA. 7. Pseudomonas aeroginosa. 8. Diabetes mellitus. 9. Paraplegia. CT Pelvis reviewed. No radiographic evidence of osteomyelitis noted. Recommend operative intervention of these bilateral ischial pressure sores. They are unstageable at present, but I suspect at least a Stage III or a Stage IV with possible bone involvement. Postoperatively, will place the VAC. Soft tissue and bone (if necessary) will be sent to Pathology for analysis to rule out carcinoma and to evaluate for osteomyelitis and to Microbiology for culture. A positive culture may necessitate antibiotic modification. At present, he is on Cipro, Vancomycin, and Flagyl for MRSA and Pseudomonas in his left heel. Anticipate increased metabolic demands from the infection and from the multiple ulcerations. Will check a Prealbumin and encourage nutritional supplementation with protein to help the healing process. HgbA1c is 7.7 from 01/11/19. Before any elective myocutaneous flaps can be done, the HgbA1c needs to be less than 8. At present, the patient is not interested in any surgery for his bilateral ischial pressure sores. He states he has been less than compliant recently with going to [employer] events. Whenever he has developed the beginnings of a pressure sore in the past, he would be more compliant with pressure releases every 10 minutes for 10 seconds, and his early onset ulcerations would heal. He thinks his bilateral ischial pressure sores will heal as well. So no surgery will be done now. When discharged, he will followup at [facility] so I can continue to manage his pressure sores. If they worsen, then more urgent surgical excision would be necessary. He is aware of that possibility and voices understanding and wishes to proceed with the current plan of nonoperative management to see if these pressure sores can heal on their own. Code Visit Inpatient E&M: 19714 Init Hosp L2 - ICD-10 - L89.310, L89.320, L97.912, L97.922, A49.02, A49.8, E11.9, G83.9
[2019-01-13 12:25] LABS: Bedside Glucose 193 mg/dL (70-110)
--- NOTE | 2019-01-13 13:30 | CASEMGMT ---
AURORA BUTLER received script from [place] that patient will need IV ATB at discharge. AURORA BUTLER in to discuss discharge needs with patient and mother. Patient would like HHC with [facility]. Referral sent to [facility] and they are able to accept the patient. Referral made to [facility] for ATB setup. AURORA BUTLER will continue to follow this patient and plan for a safe discharge.
[2019-01-13] MEDS: metroNIDAZOLE 500 MG Tablet PO ×2 (13:36→17:38)
[2019-01-13 14:00] VITALS: BP 149/88; PULSE 96; RESP 18; TEMP 36.8; O2SAT 97
--- NOTE | 2019-01-13 14:12 | PN_ITS ---
Patient Problems: Active and Suspected Problems (Last Reviewed 01/10/19 @ 19:48 by Ilan Pichardo DO) Severe sepsis (Acute) Left leg cellulitis (Acute) Ulcer of left lower extremity with fat layer exposed (Acute) Ulcer of right lower extremity with fat layer exposed (Acute) Subjective: This patient was carefully examined and evaluated resting in his bed again this afternoon for bilateral lower extremity ulcers. He states he is continuing to feel much better. He says he has been doing his best to keep the ulcer sites offloaded as instructed. He currently denies any feelings of nausea, vomiting, fever, chills. - Physical Exam General: Alert, Oriented x3, Cooperative Extremities: Capillary Refill Less than 3 Seconds - To distal digits of each foot, No Calf Tenderness, Edema - Bilateral lower extremity edema?improving, Peripheral Pulses Normal - DP and PT pulses palpable bilateral Skin: Ulcer/ Wound - Ulcer to left calcaneus with fat layer exposed. The base is a mixture of majority granular tissue, and scant slough, devitalized subcutaneous tissue, and surrounding hyperkeratotic tissue. There is no probing to bone, no tracking, no undermining, no purulence, no malodor, no surrounding or streaking cellulitis, and no significant increase in warmth to the area. Ulcers also appreciated to left lateral lower leg and right lateral malleolus with fat layer exposed. The base is a mixture of majority granular tissue, as well as some slight adherent slough and some surrounding hyperkeratotic tissue. There is no probing to bone, no tracking, no undermining, no purulence, no malodor, no surrounding or streaking cellulitis, no increased warmth to either of these sites. Erythema to the site continues to improve. Each ulcer site looks better today than yesterday. Musculoskeletal: Muscle Wasting, - - No muscle strength in lower extremities Neurological: - - Patient is paraplegic Psych/Mental Status: Normal Affect, Appropriate Vital Signs Temp Pulse Resp BP Pulse Ox 97.9 F 96 18 162/99 H 96 01/13/19 08:37 01/13/19 08:37 01/13/19 08:37 01/13/19 08:37 01/13/19 08:37 Oxygen Delivery Method Room Air Weight: 147.8 kg Body Mass Index (BMI) 37.6 Intake and Output for Last 24 Hours 01/11/19 01/12/1919 23:59 23:59 23:59 Intake Total 4223 / 4223 4695.5 / 4695.5 1041 / 1041 Output Total 3125 / 3125 1625 / 1625 1450 / 1450 Balance 1098 / 1098 3070.5 / 3070.5 -409 / -409 Microbiology Past 72 Hours 01/12/19 13:00 Wound Culture - Preliminary Wound - Buttock Gram negative christiana Gram positive organism 01/10/19 21:15 Gram Stain - Final Wound - Heel, Left Wound Culture - Final Meth. resistant Staph. aureus Pseudomonas aeroginosa Anaerobic Culture - Preliminary Checking for anaerobes, further studies to follow. 01/10/19 17:57 Blood Culture - Preliminary Blood Culture (Wb) - Left Forearm No growth in 48 hours. 01/10/19 17:14 Blood Culture - Preliminary Blood Culture (Wb) - Left Forearm No growth in 48 hours. 01/11/19 12:00 Urine Culture - Preliminary Urine Catheter - Catheter Culture exhibits no growth. Laboratory Tests Past 24 Hrs 01/12/19 15:00 Vancomycin Trough 15.1 H POC Glucose 01/13/19 01/13/19 01/12/19 12:17 06:31 22:09 POC Glucose 193 H 155 H 197 H 01/12/19 15:46 POC Glucose 169 H Medical Necessity - Tobacco Use Smoking Status: Former smoker Assessment/Plan All Active Problems (Last Reviewed 01/10/19 @ 19:48 by Ilan Pichardo DO) Severe sepsis (Acute) Left leg cellulitis (Acute) Ulcer of left lower extremity with fat layer exposed (Acute) Ulcer of right lower extremity with fat layer exposed (Acute) Blood infection (Resolved) Recurrent infections (Acute) UTI (urinary tract infection) (Resolved) Cellulitis of left lower extremity (Acute) Sepsis (Acute) Hyperglycemia (Acute) Ulcer of left lower extremity Ulcer left heel Ulcer of right lower extremity Resolved cellulitis DM Lower extremity edema Paraplegic Other comorbidities This patient was carefully examined and evaluated resting in his bed again this afternoon. Vital signs remained stable, and patient continues to feel well tod ay. He continues to deny any feelings of nausea, vomiting, fever, chills. Left heel wound cultures are showing growth of MRSA as well as pseudomonas aeruginosa. And buttock wounds are showing gram-negative christiana and a gram- positive organism. Blood cultures are showing no growth after 48 hours. X-ray of the left foot read by radiologist as no fracture or dislocation, osteopenia and soft tissue swelling. Patient also had a left foot MRI completed. This was read by radiologist as showing some focal marrow edema of the posterior lateral calcaneus which is believed to be consistent with osteomyelitis in this area. This could be chronic due to chronicity of the ulcer overlying this site. All of the aforementioned ulcer sites were carefully examined and evaluated again this afternoon. Each ulcer site appears better in appearance prior to debridement yesterday. No debridement was performed at bedside today. Cellulitis to lower extremity continues to be resolved bilaterally. There cont inues to be no drainage or malodor appreciated from the ulcer site today. Each ulcer site was then carefully dressed with Aquacel Ag to the base, followed by 4 x 4's, ABDs, Kerlix, and Garth bandage. Dressings can be reinforced as necessary by nursing staff. Patient is instructed to keep pressure off of all ulcer sites at all times while seated or laying with the assistance of pillows. Ulcer sites are to be completely floated over the edges of pillows so there is nothing but air in contact with the ulcer sites. Patient will follow-up at the wound healing center upon discharge for treatment of bilateral ischial wounds and bilateral lower extremity ulcers. Medical management and DVT prophylaxis appreciated by primary team. Podiatry will continue to follow this patient while in house.
--- NOTE | 2019-01-13 14:40 | CHAPLAIN ---
Type of Pastoral Visit ___ Initial Visit _x__ Follow-up Visit ___ On-call Visit ___ General Patient Visit ___ Spiritual Assessment ___ Family Conference ___ Bereavement ___ Rapid Response ___ Code Blue ___ Other (describe below) Pastoral Care Referral From _x__ Patient ___ Family ___ Nurse ___ Physician ___ Machine Repairer Maintenance ___ Charger Tester ___ Other (describe below) Sacrament/Intervention _x__ Active listening ___ Anointing ___ Evangelical ___ Bereavement ___ Communion ___ Shireen exploration ___ _x__ Life review _x__ Prayer ___ Reconciliation ___ Sacrament of Sick ___ Supportive presence ___ Wedding ___ Other (describe below) Pastoral Comments
[2019-01-13 16:36] LABS: Bedside Glucose 162 mg/dL (70-110)
--- NOTE | 2019-01-13 20:22 | RAD_ITS ---
STUDY: X-RAY CHEST REASON FOR EXAM: Male, 33 years old. PICC line placement TECHNIQUE: Single AP portable view of the chest. COMPARISON: None FINDINGS: Right PICC is noted with tip in the upper SVC. No pneumothorax. The lungs are clear and expanded. There is no demonstrated pleural abnormality. There is mild cardiac enlargement. Normal mediastinum and sean. Normal visualized pulmonary arteries. Normal visualized aortic arch and descending thoracic aorta. Normal visualized thoracic spine. Normal visualized ribs, clavicles, and shoulders. There is no demonstrated abnormality of the visualized soft tissue structures of the upper abdomen. RAD/CXR for Line Placement IMPRESSION: Right PICC as above. Remainder is within normal limits. Electronically Signed: Donald Iraheta DO at 21:37 EDT Tel , Service support ,
--- NOTE | 2019-01-13 20:43 | RAD_ITS ---
STUDY: X-RAY CHEST REASON FOR EXAM: Male, 33 years old. PICC line placement TECHNIQUE: Single AP portable view of the chest. COMPARISON: 01/13/2019 FINDINGS: Right PICC is noted with tip in the mid SVC. No pneumothorax. There has been slight interval advancement. Remainder of the exam is within normal limits RAD/CXR for Line Placement IMPRESSION: As above Electronically Signed: Donald Iraheta DO at 21:36 EDT Tel , Service support ,
[2019-01-13 21:47] VITALS: BP 141/75; PULSE 92; RESP 18; TEMP 36.8; O2SAT 97
[2019-01-13] MEDS: Ciprofloxacin 250 MG Tablet 750 MG PO (22:10)
[2019-01-13 22:25] LABS: Bedside Glucose 249 mg/dL (70-110)
[2019-01-14 03:12] VITALS: BP 150/85; PULSE 102; RESP 18; TEMP 36.4; O2SAT 97
[2019-01-14] MEDS: Acetaminophen 325 MG Tablet 650 MG PO (03:23)
[2019-01-14 06:28] LABS: Prealbumin 13.9 mg/dL (20.0-40.0)
[2019-01-14] MEDS: Insulin Lispro 100 UNIT/ML INSULN.PEN SQ ×2 (06:44→11:47)
[2019-01-14] MEDS: 0.9% NaCl Peripheral Flush Adult/Peds IV (06:45)
[2019-01-14 06:50] LABS: Bedside Glucose 183 mg/dL (70-110)
[2019-01-14] MEDS: Ciprofloxacin 250 MG Tablet 750 MG PO (08:45)
[2019-01-14] MEDS: metroNIDAZOLE 500 MG Tablet PO ×2 (08:45→11:47)
[2019-01-14] MEDS: Enoxaparin 40 MG/0.4 ML Syringe SC (08:45)
[2019-01-14] MEDS: metFORMIN (XR) 500 MG Tablet PO (08:46)
[2019-01-14 08:56] VITALS: BP 136/82; PULSE 90; RESP 16; TEMP 36.5; O2SAT 96
[2019-01-14] MEDS: Glucerna Shake 120 ML LIQUID PO ×2 (09:50→11:50)
--- NOTE | 2019-01-14 11:30 | PCM.DC ---
- Discharge Diagnoses Current Active Problems: Current Active and Chronic Problems (Last Reviewed 01/10/19 @ 19:48 by Ilan Pichardo DO) Severe sepsis (Acute) Left leg cellulitis (Acute) Ulcer of left lower extremity with fat layer exposed (Acute) Ulcer of right lower extremity with fat layer exposed (Acute) You will use the following diet at home:: Calorie/Carbohydrate Controlled (specify 1200, 1400, etc) - 1800 ADA diet Your food should be the consistency of: Regular Discharge Activity: May Not Drive, - - paraplegic Weight Bearing Status: No weight bearing Call your doctor if you observe: Fever of 101 or Higher, Numbness or Tingling, Inability to urinate - staright cath, Inability to have a bowel movement, Shortness of breath, Swelling in the ankles, Prolonged hiccoughing, Increased palpitations (irregular heartbeat) Additional Instructions: Follow-up with the wound care center in 2 weeks Allergies/Adverse Reactions: Allergies No Known Allergies Allergy (Verified 01/10/19 14:16) Medications to take at Discharge metFORMIN (XR) [Glucophage Xr] 500 mg PO DAILY 01/10/19 Ciprofloxacin [Cipro] 750 mg PO BID 40 Days #120 tab 01/13/19 metroNIDAZOLE [Flagyl] 500 mg PO TID 40 Days #120 tab 01/13/19 Insulin Glargine [Lantus SoloStar Pen] 15 units SUBCUT BID #1 pen 01/14/19 Insulin Lispro [Humalog KwikPen] See Protocol SQ TIDAC #1 insuln.pen 01/14/19 Smz/Tmp Ds [Bactrim Ds] 2 tab PO BID #160 tab 01/14/19 The following prescriptions were given: Smz/Tmp Ds [Bactrim Ds] 2 tab PO BID #160 tab Transmission Status: Received by [id number] Ciprofloxacin [Cipro] 750 mg PO BID 40 Days #120 tab Transmission Status: Received by [id number] metroNIDAZOLE [Flagyl] 500 mg PO TID 40 Days #120 tab Transmission Status: Received by [id number] Insulin Lispro [Humalog KwikPen] See Protocol SQ TIDAC #1 insuln.pen Transmission Status: Pending to [facility] Insulin Glargine [Lantus SoloStar Pen] 15 units SUBCUT BID #1 pen Transmission Status: Pending to [facility] Primary Care Physician: Lee Andersen MD [Primary Care Provider] - Please follow up with your Primary Care Physician in: in 1-2 week Test Results: Test results from this visit will be discussed in further detail at your follow-up appointment, if applicable. Please Follow Up With: James Mccann DPM When: in 1-2 week Please Follow Up With: Víctor Mccallum MD When: in 2 weeks Please Follow Up With: Solitario Granados MD When: in 2-3 weeks
[2019-01-14 11:51] VITALS: BP 152/87; PULSE 93; RESP 16; TEMP 36.6; O2SAT 97
--- NOTE | 2019-01-14 13:22 | PCM.DC.SUM ---
Discharge Date and Diagnosis - Problem List Patient Problems: Active and Suspected Problems (Last Reviewed 01/10/19 @ 19:48 by Ilan Pichardo DO) Severe sepsis (Acute) Left leg cellulitis (Acute) Ulcer of left lower extremity with fat layer exposed (Acute) Ulcer of right lower extremity with fat layer exposed (Acute) Date of Admission: 01/10/19 Date of Discharge: 01/14/19 - Primary Discharge Diagnosis Active and Suspected Problems (Last Reviewed 01/10/19 @ 19:48 by Ilan Pichardo DO) Severe sepsis (Acute) Left leg cellulitis (Acute) Ulcer of left lower extremity with fat layer exposed (Acute) Ulcer of right lower extremity with fat layer exposed (Acute) - Secondary Discharge Diagnosis Chronic Problems (Last Reviewed 01/10/19 @ 19:48 by Ilan Pichardo DO) 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 Swelling, mass, or lump on face (Chronic) Type 2 diabetes mellitus (Chronic) Hypersomnolence (Chronic) Urinary incontinence (Chronic) Lower limb ulcer (Chronic) Paralysis (Chronic) Cavernous hemangioma (Chronic) 10/2009 High blood pressure (Chronic) Diabetes (Chronic) 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 He is known to have left posterior heel decubitus ulcer. Impressions and management 1. severe sepsis (leukocytosis with left shift, lactic acidosis, elevated ESR and CRP) due to cellulitis of the Left LE due to MRSA: ESR 63, CRP 211. Lactic acid 2.5. Mild leukocytosis 12.6 thousand with 76% neutrophils. MRI of left foot shows osteomyelitis of calcaneum. ID is consulted. Patient is being seen by wound care nurse. MRSA nasal screen positive. Wound photos reviewed. Wound culture of left heel reported MRSA and Pseudomonas. Preliminary wound culture of buttock reported gram-negative christiana and gram-positive organism. On IV antibiotics, vancomycin and Zosyn. CT scan of pelvis reported Bed sore ulceration the almost reaching the periphery of the rectum. Patient declined/refused for the surgery. PICC line was placed but home IV infusion therapy is not approved. As per Dr. Mccallum he does not have good option for once daily infusion center IV antibiotic. Therefore patient is being discharged on high-dose Bactrim, Cipro and Flagyl. Prescription given by ID. PICC line removed. Follow-up with the wound center and may need MRI to further delineate proximity of rectum to pressure ulcer. 2. multiple decubitus ulcers, present on admission a. R lateral malleolus - stage 2 b. R ischium stage 2 c. Left heel - stage 3 d. left lateral calf - stage 2 e. left ischium - difficult to stage due to large amount of slough: 3. Paraplegia, chronic from 2009 after cavernous hemangioma of his spine: 4. Diabetes mellitus type 2: Blood sugar is reasonably controlled. Continue Accu-Chek before meals and at bedtime. 5. Obesity: Nutrition is consulted 6. History of hypersomnolence: Patient will need outpatient polysomnography. 7. Hypertension: Blood pressure is controlled. Discharge medication reconciliation done. Discharge follow-up instructions completed. Discharge process discussed with the patient and all questions were answered to patient's satisfaction. Total time spent, exact 35 minutes on discharge meds reconciliation, examination, review of imaging and blood test and discussion with the patient on follow-up instructions. Clinical Impression(s) from Imaging Studies Foot X-Ray 01/10/19 17:35 IMPRESSION: No fracture or dislocation. Osteopenia. Soft tissue swelling. Electronically Signed: Mao Sultana, at 17:55 EDT Tel , Service support , Lower Extremity MRI 01/11/19 14:30 IMPRESSION: Osteomyelitis of the posterior calcaneus. Posterior skin thickening and subcutaneous edema. No abscess or fluid collection. Electronically Signed: Reymundo Joiner MD at 17:58 EDT , Service support , Pelvis CT 01/13/19 11:00 IMPRESSION: Bed sore ulceration the almost reaching the periphery of the rectum. MRI is recommended for better evaluation. No osteomyelitis Patient Problems: Active and Suspected Problems (Last Reviewed 01/10/19 @ 19:48 by Ilan Pichardo DO) Severe sepsis (Acute) Left leg cellulitis (Acute) Ulcer of left lower extremity with fat layer exposed (Acute) Ulcer of right lower extremity with fat layer exposed (Acute) Subjective: Initially patient had PICC line for IV antibiotics Vanco but unable to be approved for home IV therapy and does not have good option for once daily IV infusion center. Therefore, patient is discharged on oral higher dosage Bactrim Cipro and Flagyl for 6 weeks as per ID. - Physical Exam General: Alert, Oriented x3, Cooperative HEENT: Atraumatic, PERRLA, EOMI, Normocephalic Neck: Supple, No JVD, Negative Carotid Bruits Lungs: Clear to auscultation, No rhonchi, No wheeze, No rales, Diminished - To bilateral lung bases Cardiovascular: Regular rate, Regular Rhythm, Normal S1, Normal S2, No murmurs Abdomen: Bowel Sounds Present, Soft, Non Tender Extremities: No edema, Capillary Refill Less than 3 Seconds Skin: Ulcer/ Wound - Bilateral ischial ulcer. Left heel ulcer. Right lateral malleolus ulcer Musculoskeletal: No Tenderness to Palpation of Joints or Extremities, Arthritic Changes, Muscle Wasting Neurological: Cranial nerves II-XII grossly intact, - - Paraplegia. Psych/Mental Status: Normal Affect, Appropriate Vital Signs Temp Pulse Resp BP Pulse Ox 97.9 F 93 16 152/87 H 97 01/14/19 11:51 01/14/19 11:51 01/14/19 11:51 01/14/19 11:51 01/14/19 11:51 Oxygen Delivery Method Room Air Weight: 325 lb 13.491 oz Body Mass Index (BMI) 37.6 Intake and Output for Last 24 Hours 01/12/19 01/13/19 01/14/19 23:59 23:59 23:59 Intake Total 4695.5 / 4695.5 3711 / 3711 1500 / 1500 Output Total 1625 / 1625 1999 / 1999 1450 / 1450 Balance 3070.5 / 3070.5 1711 / 1711 50 / 50 Microbiology Past 72 Hours 01/12/19 13:00 Gram Stain - Final Wound - Buttock Wound Culture - Final Proteus mirabilis Gram positive organism Anaerobic Culture - Preliminary Checking for anaerobes, further studies to follow. 01/11/19 12:00 Urine Culture - Final Urine Catheter - Catheter Culture exhibits no growth. 01/10/19 21:15 Gram Stain - Final Wound - Heel, Left Wound Culture - Final Meth. resistant Staph. aureus Pseudomonas aeroginosa Anaerobic Culture - Preliminary Checking for anaerobes, further studies to follow. 01/10/19 17:57 Blood Culture - Preliminary Blood Culture (Wb) - Left Forearm No growth in 48 hours. 01/10/19 17:14 Blood Culture - Preliminary Blood Culture (Wb) - Left Forearm No growth in 48 hours. Laboratory Tests Past 24 Hrs 01/14/19 05:40 Prealbumin 13.9 L POC Glucose 01/14/19 01/13/19 01/13/19 06:41 22:05 16:28 POC Glucose 183 H 249 H 162 H Discharge Activity: May Not Drive, - - paraplegic Weight Bearing Status: No weight bearing Call your doctor if you observe: Fever of 101 or Higher, Numbness or Tingling, Inability to urinate - staright cath, Inability to have a bowel movement, Shortness of breath, Swelling in the ankles, Prolonged hiccoughing, Increased palpitations (irregular heartbeat) Home Medications: Medications to take at Discharge metFORMIN (XR) [Glucophage Xr] 500 mg PO DAILY 01/10/19 Ciprofloxacin [Cipro] 750 mg PO BID 40 Days #120 tab 01/13/19 metroNIDAZOLE [Flagyl] 500 mg PO TID 40 Days #120 tab 01/13/19 Insulin Glargine [Lantus SoloStar Pen] 15 units SUBCUT BID #1 pen 01/14/19 Insulin Lispro [Humalog KwikPen] See Protocol SQ TIDAC #1 insuln.pen 01/14/19 Smz/Tmp Ds [Bactrim Ds] 2 tab PO BID #160 tab 01/14/19 Following Prescrptions Were Given to Patient: Smz/Tmp Ds [Bactrim Ds] 2 tab PO BID #160 tab Transmission Status: Received by [facility] Ciprofloxacin [Cipro] 750 mg PO BID 40 Days #120 tab Transmission Status: Received by [facility]48 metroNIDAZOLE [Flagyl] 500 mg PO TID 40 Days #120 tab [facility]: [facility] Insulin Lispro [Humalog KwikPen] See Protocol SQ TIDAC #1 insuln.pen Transmission [facility]: [facility] Insulin Glargine [Lantus SoloStar Pen] 15 units SUBCUT BID #1 pen Transmission Status[facility] Primary Care Physician: Lee Andersen MD [Primary Care Provider] - Please follow up with your Primary Care Physician in: in 1-2 week Please Follow Up With: James Mccann DPM When: in 1-2 week Please Follow Up With: Víctor Mccallum MD When: in 2 weeks Please Follow Up With: Solitario Granados MD When: in 2-3 weeks Medical Necessity - Tobacco Use Smoking Status: Former smoker Meaningful Use Info Meaningful Use Diagnoses (Choose all that apply): None applicable Code Visit Inpatient E&M: 27634 Disch Hosp
--- NOTE | 2019-01-14 14:57 | PN.ID_ITS ---
Patient Problems: Active and Suspected Problems (Last Reviewed 01/10/19 @ 19:48 by Ilan Pichardo DO) Severe sepsis (Acute) Left leg cellulitis (Acute) Ulcer of left lower extremity with fat layer exposed (Acute) Ulcer of right lower extremity with fat layer exposed (Acute) Subjective: Feeling ok, no fever, wants to go home - Physical Exam General: Alert, Cooperative, No apparent distress Lungs: Clear to auscultation, Normal air movement Cardiovascular: Regular rate, Regular Rhythm Abdomen: Soft, Non Tender, Non-Distended Skin: Ulcer/ Wound Vital Signs Temp Pulse Resp BP Pulse Ox 97.9 F 93 16 152/87 H 97 01/14/19 11:51 01/14/19 11:51 01/14/19 11:51 01/14/19 11:51 01/14/19 11:51 Oxygen Delivery Method Room Air Weight: 147.8 kg Body Mass Index (BMI) 37.6 Intake and Output for Last 24 Hours 01/12/19 01/13/19 01/14/19 23:59 23:59 23:59 Intake Total 4695.5 / 4695.5 3711 / 3711 1500 / 1500 Output Total 1625 / 1625 1999 / 1999 1450 / 1450 Balance 3070.5 / 3070.5 1711 / 1711 50 / 50 Microbiology Past 72 Hours 01/12/19 13:00 Gram Stain - Final Wound - Buttock Wound Culture - Final Proteus mirabilis Gram positive organism Anaerobic Culture - Preliminary Checking for anaerobes, further studies to follow. 01/11/19 12:00 Urine Culture - Final Urine Catheter - Catheter Culture exhibits no growth. 01/10/19 21:15 Gram Stain - Final Wound - Heel, Left Wound Culture - Final Meth. resistant Staph. aureus Pseudomonas aeroginosa Anaerobic Culture - Preliminary Checking for anaerobes, further studies to follow. 01/10/19 17:57 Blood Culture - Preliminary Blood Culture (Wb) - Left Forearm No growth in 48 hours. 01/10/19 17:14 Blood Culture - Preliminary Blood Culture (Wb) - Left Forearm No growth in 48 hours. Laboratory Tests Past 24 Hrs 01/14/19 05:40 Prealbumin 13.9 L POC Glucose 01/14/19 01/13/19 01/13/19 06:41 22:05 16:28 POC Glucose 183 H 249 H 162 H Medical Necessity - Tobacco Use Smoking Status: Former smoker Route of nutrition/ use of supplements: [] Nutritional Intake: [] IV Site: [] Lee Catheter: [] - Assessment/Plan Antibiotics: [] Assessment/Plan: [] Active and Suspected Problems (Last Reviewed 01/10/19 @ 19:48 by Ilan Pichardo DO) Severe sepsis (Acute) Left leg cellulitis (Acute) severe sepsis on presentation due to L heel osteo - prior wound cxs with MRSA, proteus, and PsA. Wound cx here with MRSA and PsA. MRI shows osteo. Consulted podiatry and Dr. Granados. On iv vanc and po cipro/flagyl, but he is unable to be approved for home iv therapy. Discussed options with him, and he does not have good once daily IV options available for the infusion center. Will treat with high dose bactrim, cipro, flagyl, and he knows not to drink etoh while on these. Plan on 6 week course, stop date 02/22/19, weekly bmp, cbc, esr, LFT. Wrote rx for labs and abx. ID followup with me in 3 weeks at wound center. Will follow, d/w corrections caseworker.
[2019-01-14] MEDS: Smz/Tmp Ds Tablet 2 TABLET PO (16:00)
--- NOTE | 2019-01-14 16:22 | CASEMGMT ---
AURORA BUTLER received updated from [facility] that patient is not homebound and are not able to accept the patient. AURORA CM in to discuss discharge options for IV ATBS with patient. Possible nurse from [facility] or possible infusion center. AURORA BUTLER received call from [facility] and cost for IV ATB is $6200 for total treatment. [facility] is not able to send nurse to assist patient due to insurance. AURORA BUTLER updated Dr. Mccallum regarding cost and difficultly to setup HHC. Dr. Mccallum change ATBs to all oral. AURORA BUTLER updated patient regarding new plan for oral antibiotic and no HHC due to not being home bound. Patient voiced understanding. Patient and family requesting script for new seat cushion. Script received and sent to [facility] [place] and arranged for cushion to be delivered to patient's home. Patient updated regarding setup for new seat cushion. CM to continue to follow this patient and plan for a safe discharge.
[2019-01-15 02:31] LABS: Bedside Glucose 203 mg/dL (70-110)
--- NOTE | 2019-01-17 14:48 | CASEMGMT ---
AURORA BUTLER DC PHONE CALL DC DATE: 01/14/19 DC Disposition: Home LACE/STRATA: 03/22 Attempted call to phone. States the mailbox is full and cannot accept any messages at this time. Snehal CANTRELL RN ACM
== END 2019-01-14 16:20 | disposition home or self-care (01) | DRG 853 ==
LOC: ED 16:23 → MS3 18:59
PROVIDERS: Internal Medicine; Surgery; Emergency Provider Emergency Medicine; Family Provider Internal Medicine; PCP Internal Medicine; Visit Provider Internal Medicine
DX: A41.02 Sepsis due to Methicillin resistant Staphylococcus aureus (principal); L89.623 Pressure ulcer of left heel, stage 3; L03.116 Cellulitis of left lower limb; G82.20 Paraplegia, unspecified; M86.8X7 Other osteomyelitis, ankle and foot; R65.20 Severe sepsis without septic shock; L89.512 Pressure ulcer of right ankle, stage 2; L89.329 Pressure ulcer of left buttock, unspecified stage; L89.312 Pressure ulcer of right buttock, stage 2; L89.892 Pressure ulcer of other site, stage 2; B95.62 Methicillin resistant Staphylococcus aureus infection as the cause of diseases classified elsewhere; E66.9 Obesity, unspecified; Z68.37 Body mass index [BMI] 37.0-37.9, adult; Z79.84 Long term (current) use of oral hypoglycemic drugs; Z86.14 Personal history of Methicillin resistant Staphylococcus aureus infection; E11.69 Type 2 diabetes mellitus with other specified complication; I10 Essential (primary) hypertension; Z87.891 Personal history of nicotine dependence
CPT/HCPCS: 36415; 36569; 71045; 72192; 73630; 73718; 80048; 80076; 80202; 81001; 82962; 83036; 83605; 83735; 84100; 84134; 85025; 85652; 86140; 87040; 87070; 87075; 87076; 87077; 87086; 87186; 87205; 87640; 97802; 99284; 99406; J7030; J7040; A4216

== ENCOUNTER 2019-01-31 15:24 | Outpatient (RCR) | payer MEDICARE, OTHER, SELFPAY ==
[2019-01-10 19:15] VITALS: BMI 37.6
[2019-01-19 12:12] LABS: Erythrocyte Sedimentation Rate 46 mm/hr (0-15)
[2019-01-19 12:15] LABS: Absolute Lymphocyte Count 1.64 X10^3/ul (0.83-4.51); Absolute Neutrophil Count 6.8 X10^3/uL (2.0-7.7); Basophil# 0.04 X10^3/uL; Basophil% 0.4 % (0-1); Eosinophil# 0.34 X10^3/uL; Eosinophils% 3.6 % (0-5); Hematocrit 41.2 % (40-54); Hemoglobin 13.3 g/dl (13.0-16.5); Lymphocyte # 1.64 X10^3/ul (4.0); Lymphocyte % 17.4 % (19-41); Mean Corp Hgb Conc 32.3 g/gl (32-36); Mean Corpuscular Hgb 27.8 pg (27.0-32.0); Mean Corpuscular Volume 86.2 fL (80-94); Mean Platelet Vol. 10.9 fl (6.2-12.0); Monocyte# 0.56 X10^3/uL; Monocyte% 5.9 % (0-10); Neutrophil % 72.2 % (47-70); Platelet Count 311 K/mm3 (150-450); RBC Distribution Width CV 14.7 % (11.6-14.6); RBC Distribution Width SD 46.1 fl (35.1-43.9); Red Blood Count 4.78 M/mm3 (4.6-6.2); White Blood Count 9.4 K/mm3 (4.4-11.0)
[2019-01-19 12:16] LABS: POSITIVE COUNT NO; POSITIVE DIFFERENTIAL NO; POSITIVE MORPHOLOGY NO
[2019-01-19 12:55] LABS: AST(SGOT) 37 U/L (15-37); Alanine Aminotransfer ALT/SGPT 76 U/L (16-61); Albumin, Serum 3.3 g/dL (3.2-5.0); Alkaline Phosphatase 115 U/L (45-117); Anion Gap 11 (5-15); BUN 11 mg/dL (7-18); BUN/Creat Ratio 15.8 RATIO (10-20); Bilirubin, Direct 0.06 mg/dL (0.00-0.30); Calcium,Total 8.4 mg/dL (8.5-10.1); Chloride 100 mmol/L (98-107); EST Glomerular Filtration Rate 137 mL/min (>60); Est Glom Filt Rate - Afr Amer 166 mL/min (>60); Glucose 238 mg/dL (74-106); Protein, Total 7.3 g/dL (6.4-8.2); Sodium Level 136 mmol/L (136-145)
[2019-01-31 17:22] LABS: Absolute Lymphocyte Count 1.39 X10^3/ul (0.83-4.51); Absolute Neutrophil Count 5.6 X10^3/uL (2.0-7.7); Basophil# 0.04 X10^3/uL; Basophil% 0.5 % (0-1); Eosinophil# 0.21 X10^3/uL; Eosinophils% 2.7 % (0-5); Hematocrit 42.6 % (40-54); Hemoglobin 13.8 g/dl (13.0-16.5); Lymphocyte # 1.39 X10^3/ul (4.0); Lymphocyte % 17.6 % (19-41); Mean Corp Hgb Conc 32.4 g/gl (32-36); Mean Corpuscular Hgb 27.8 pg (27.0-32.0); Mean Corpuscular Volume 85.7 fL (80-94); Mean Platelet Vol. 11.4 fl (6.2-12.0); Monocyte# 0.61 X10^3/uL; Monocyte% 7.7 % (0-10); Neutrophil # 5.63 X10^3/uL (2.7-7.7); Neutrophil % 71.2 % (47-70); Platelet Count 272 K/mm3 (150-450); RBC Distribution Width CV 15.3 % (11.6-14.6); RBC Distribution Width SD 47.3 fl (35.1-43.9); Red Blood Count 4.97 M/mm3 (4.6-6.2); White Blood Count 7.9 K/mm3 (4.4-11.0)
[2019-01-31 17:32] LABS: POSITIVE COUNT NO; POSITIVE DIFFERENTIAL NO; POSITIVE MORPHOLOGY NO
[2019-01-31 17:44] LABS: AST(SGOT) 31 U/L (15-37); Alanine Aminotransfer ALT/SGPT 74 U/L (16-61); Albumin, Serum 3.6 g/dL (3.2-5.0); Alkaline Phosphatase 108 U/L (45-117); Anion Gap 8 (5-15); BUN 10 mg/dL (7-18); BUN/Creat Ratio 9.7 RATIO (10-20); Bilirubin, Direct 0.12 mg/dL (0.00-0.30); Calcium,Total 8.8 mg/dL (8.5-10.1); Chloride 101 mmol/L (98-107); Creatinine, Serum 1.03 mg/dL (0.70-1.30); EST Glomerular Filtration Rate 87 mL/min (>60); Est Glom Filt Rate - Afr Amer 105 mL/min (>60); Globulin 3.9 g/dL (2.2-4.2); Glucose 134 mg/dL (74-106); Protein, Total 7.5 g/dL (6.4-8.2); Sodium Level 136 mmol/L (136-145)
[2019-01-31 17:58] LABS: Erythrocyte Sedimentation Rate 38 mm/hr (0-15)
== END 2019-02-16 17:15 | disposition home or self-care (01) ==
LOC: LAB 15:24
PROVIDERS: Family Provider Internal Medicine; PCP Internal Medicine; Referring Provider Internal Medicine Infectious Disease; Visit Provider Internal Medicine Infectious Disease
DX: M86.9 Osteomyelitis, unspecified (principal)
CPT/HCPCS: 36415; 80048; 80076; 85025; 85652; 86140

== ENCOUNTER → 2019-05-03 14:21 | Outpatient (CLI) | payer MEDICARE, OTHER, SELFPAY ==
[2019-04-26 15:05] VITALS: BMI 44.7
[2019-05-03 15:33] LABS: T4 Free Direct 1.19 ng/dL (0.76-1.46); Thyroid Stim Hormone (TSH) 2.27 uIU/mL (0.358-3.74)
== END ==
PROVIDERS: Family Provider Internal Medicine; PCP Internal Medicine; Referring Provider Internal Medicine; Visit Provider Internal Medicine
DX: K52.9 Noninfective gastroenteritis and colitis, unspecified (principal); R00.0 Tachycardia, unspecified
CPT/HCPCS: 36415; 83630; 84439; 84443; 87493; 87506

== ENCOUNTER 2019-05-17 15:30 | Outpatient (RCR) | payer MEDICARE, OTHER, SELFPAY ==
[2019-04-15 14:53] VITALS: BMI 37.6
[2019-04-26 15:05] VITALS: BP 152/95; PULSE 103; RESP 16; TEMP 36.6; BMI 44.7
--- NOTE | 2019-04-26 17:06 | HP.PCM_ITS ---
(1) Chronic ulcer of left heel Status: Chronic Code(s): L97.429 - Non-pressure chronic ulcer of left heel and midfoot with unspecified severity (2) Ulcer of left lower extremity with fat layer exposed Status: Chronic Code(s): L97.922 - Non-pressure chronic ulcer of unspecified part of left lower leg with fat layer exposed (3) Ulcer of right lower extremity with fat layer exposed Status: Chronic Code(s): L97.912 - Non-pressure chronic ulcer of unspecified part of right lower leg with fat layer exposed (4) Type 2 diabetes mellitus Status: Chronic Code(s): E11.9 - Type 2 diabetes mellitus without complications (5) 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 History of Wound: Patient is 34 year old male who is wheel chair bound, paraplegic. He is independent in his ADL's. He has a history of Type 2 DM, last A1C 7.8 last week. He has obtained these ulcers over the past 6-9 months by trauma. He states he bumps his legs/feet/ankles and the trauma causes an ulcer. He has been seen at both our wound healing center and [facility] in [place] in the past for previous uclers. The only wound care he has been doing is washing them with Dakins solution that he had left over from [facility]. Past Medical History Past Medical History: Chronic Problems (Last Reviewed 01/10/19 @ 19:48 by Ilan Pichardo DO) Ulcer of left lower extremity with fat layer exposed (Chronic) Chronic ulcer of left heel (Chronic) Ulcer of right lower extremity with fat layer exposed (Chronic) Sebaceous cyst (Chronic) of right holiness involving very lateral eyebrow Swelling, mass, or lump on face (Chronic) Type 2 diabetes mellitus (Chronic) Hypersomnolence (Chronic) Urinary incontinence (Chronic) Lower limb ulcer (Chronic) Paralysis (Chronic) Cavernous hemangioma (Chronic) 10/2009 High blood pressure (Chronic) Diabetes (Chronic) 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) Surgical History: - - Spine surgery Allergies/Adverse Reactions: Allergies No Known Allergies Allergy (Verified 04/26/19 15:49) Home Medications: Ambulatory Orders Medication Instructions Recorded blood sugar diagnostic strips See Rx Instructions .ROUTE 04/15/19 .MEDSUPPLY #100 ea blood-glucose meter kit See Rx Instructions .ROUTE 04/15/19 .MEDSUPPLY #1 ea lancets 28 gauge See Rx Instructions .ROUTE 04/15/19 .MEDSUPPLY #200 ea pen needle, diabetic 33 gauge x See Rx Instructions .ROUTE 04/20/19 .MEDSUPPLY #100 ea - Family History Maternal Family History: Family History (Last Reviewed 01/10/19 @ 19:48 by Ilan Pichardo DO) Mother Hypertension Hypertension Paternal Family History: Family History (Last Reviewed 01/10/19 @ 19:48 by Ilan Pichardo DO) Mother Hypertension - - Denies known paternal medical history including cardiac history. Smoking Status: Former smoker Review of Systems Constitutional: Denies: Chills, Fever, Weight Change Eyes: Denies: Pain, Vision Change HEENT: Denies: Difficulty Hearing, Difficulty Swallowing, Sinus Congestion Cardiovascular: Denies: Chest Pain, Palpitations Respiratory: Denies: Cough, Shortness of Breath Gastrointestinal: Denies: Diarrhea, Nausea, Vomiting Genitourinary: Reports: Incontinence - urinary Musculoskeletal: Reports: - - paraplegia Skin: Reports: Wounds - ulcers of right lateral ankle, left lateral leg, left plantar heel and left posterior heel Psychiatric: Denies: Anxiety Endocrine: Denies: Heat/ Cold Intolerance, Polydipsia, Polyuria Hematologic/ Lymphatic: Denies: Easy Bruising, Easy Bleeding - Physical Exam Vital Signs Temp Pulse Resp BP 98 F 103 H 16 152/95 H 04/26/19 15:05 04/26/19 15:05 04/26/19 15:05 04/26/19 15:05 General: Alert, Oriented x3, Cooperative HEENT: Atraumatic Oral: Moist Mucosa Lungs: Clear to auscultation, Normal air movement Cardiovascular: Regular rate, Regular Rhythm Abdomen: Soft, Obese Extremities: Capillary Refill Less than 3 Seconds, Diminished Peripheral Pulses, Edema Skin: Ulcer/ Wound - Ulcers on right lateral ankle, left lateral leg, two on left heel that after debridement are now one ulcer Wound Measurements and Assessment WC - Nurse 1 - General Ulcer Measurement Start: 04/26/19 15:02 Freq: Status: Active Protocol: Activity Type Activity Date Activity User E-Sign Co-Sign Detail Recorded Client Recorded Date Recorded By Document 04/26/19 15:05 [facility] [id number] 04/26/19 15:47 [facility] 04/26/19 15:05 Wound Center Nurse 1 [Ulcer Assessment] #6- R LAT FOOT -Combined with other wound No -Current Size (cm) - Length 2.9 -Current Size (cm) - Width 2.5 -Current Size (cm) - Depth 0.3 -Total Square Cm 7.25 -Date of Last Picture (Recall this 04/26/19 field) -Photo Taken Yes -Epithelialization None Present -Tunneling No -Undermining/Tunneling No -Circular Undermining No -Exudate Amt Small -Exudate Type Serous -Wound Margin Distinct, Outline Attached -Granulation Amt Medium (34-66%) -Granulation Quality Red -Slough/Fibrin Yes -Necrosis Amt Medium (34-66%) -Necrotic Tissue Type Adherent Slough -Texture (Temi-wound Skin Appearance) Assessed,Callus ,Scarring -Moisture (Temi-wound Skin Appearance Assessed,Dry/ ) Scaly -Color (Temi-wound Skin Appearance) Assessed -Temperature (Temi-wound Skin No Abnormality Appearance) (Pt Warm) -Tenderness on Palpation (Temi-wound No Skin Appearance) -Ulcer Cleansing SOAP AND WATER -Foul Odor after Cleansing No #5- L HEEL PLANTAR cluster -Combined with other wound No -Current Size (cm) - Length 4.9 -Current Size (cm) - Width 3.8 -Current Size (cm) - Depth 0.1 -Total Square Cm 18.62 -Date of Last Picture (Recall this 04/26/19 field) -Photo Taken Yes -Epithelialization None Present -Tunneling No -Undermining/Tunneling No -Circular Undermining No -Exudate Amt Small -Exudate Type Serosanguineous -Wound Margin Distinct, Outline Attached -Granulation Amt Small (1-33%) -Granulation Quality [place] -Slough/Fibrin No -Necrosis Amt None Present (0 %) -Texture (Temi-wound Skin Appearance) Assessed, Scarring -Moisture (Temi-wound Skin Appearance Assessed ) -Color (Temi-wound Skin Appearance) Assessed, Erythema -Temperature (Temi-wound Skin No Abnormality Appearance) (Pt Warm) -Tenderness on Palpation (Temi-wound No Skin Appearance) -Ulcer Cleansing SOAP AND WATER -Foul Odor after Cleansing No #4- L HEEL -Combined with other wound No -Current Size (cm) - Length 3.5 -Current Size (cm) - Width 3.4 -Current Size (cm) - Depth 1 -Total Square Cm 11.90 -Date of Last Picture (Recall this 04/26/19 field) -Photo Taken Yes -Epithelialization None Present -Tunneling No -Undermining/Tunneling No -Circular Undermining No -Exudate Amt Small -Exudate Type Serosanguineous -Wound Margin Distinct, Outline Attached -Granulation Amt Medium (34-66%) -Granulation Quality Red -Slough/Fibrin Yes -Necrosis Amt Medium (34-66%) -Necrotic Tissue Type Adherent Slough -Texture (Temi-wound Skin Appearance) Assessed, Scarring -Moisture (Temi-wound Skin Appearance Assessed ) -Color (Temi-wound Skin Appearance) Assessed, Erythema -Temperature (Temi-wound Skin No Abnormality Appearance) (Pt Warm) -Tenderness on Palpation (Temi-wound No Skin Appearance) -Ulcer Cleansing SOAP AND WATER -Foul Odor after Cleansing No #3- L LAT LE -Combined with other wound No -Current Size (cm) - Length 2.6 -Current Size (cm) - Width 1.2 -Current Size (cm) - Depth 0.4 -Total Square Cm 3.12 -Date of Last Picture (Recall this 04/26/19 field) -Photo Taken Yes -Epithelialization None Present -Tunneling No -Undermining/Tunneling No -Circular Undermining No -Exudate Amt Small -Exudate Type Serosanguineous -Wound Margin Distinct, Outline Attached -Granulation Amt Medium (34-66%) -Granulation Quality Red -Slough/Fibrin Yes -Necrosis Amt Medium (34-66%) -Necrotic Tissue Type Adherent Slough -Texture (Temi-wound Skin Appearance) Assessed, Scarring -Moisture (Temi-wound Skin Appearance Assessed ) -Color (Temi-wound Skin Appearance) Assessed, Erythema -Temperature (Temi-wound Skin No Abnormality Appearance) (Pt Warm) -Tenderness on Palpation (Temi-wound No Skin Appearance) -Ulcer Cleansing SOAP AND WATER -Foul Odor after Cleansing No [Edema Assessment] -Lower Limb Edema Present Yes -Right Calf (cm) 41.2 -Right Ankle (cm) 27.5 -Left Calf (cm) 39.8 -Left Ankle (cm) 28 WC - Nurse 2 - General Ulcer CM Notes Start: 04/26/19 15:02 Freq: Status: Active Protocol: Activity Type Activity Date Activity User E-Sign Co-Sign Detail Recorded Client Recorded Date Recorded By Document 04/26/19 16:24 CHARLI [id number] 04/26/19 16:33 CHARLI 04/26/19 16:24 Wound Center Nurse 2 [Procedure/Treatment] #6- R LAT FOOT -Time 16:24 -Correct Patient Yes -Correct Side, Site, Position Yes -Correct Procedure Yes -Procedure Performed Yes -Type of Procedure Debridement -Clinical Debridement Subcutaneous -Post Debridement Size (cm) - Length 3.5 -Post Debridement Size (cm) - Width 2.5 -Post Debridement Size (cm) - Depth 0.4 -Total Square Cm 8.75 -Wound/Ulcer Outcome Not Healed -Ulcer Cleansing Rinsed/ Irrigated with Saline -Foul Odor after Cleansing No -Bioengineered Tissue No -Bleeding Controlled with Pressure -Offloading No -Treatment Response Procedure Tolerated Well #5- L HEEL PLANTAR cluster -Time 16:28 -Correct Patient Yes -Correct Side, Site, Position Yes -Correct Procedure Yes -Procedure Performed Yes -Type of Procedure Debridement -Clinical Debridement Subcutaneous -Post Debridement Size (cm) - Length 8.5 -Post Debridement Size (cm) - Width 4.4 -Post Debridement Size (cm) - Depth 1.0 -Total Square Cm 37.40 -Wound/Ulcer Outcome Not Healed -Ulcer Cleansing Rinsed/ Irrigated with Saline -Foul Odor after Cleansing No -Bioengineered Tissue No -Bleeding Controlled with Pressure -Offloading No -Treatment Response Procedure Tolerated Well #3- L LAT LE -Time 16:25 -Correct Patient Yes -Correct Side, Site, Position Yes -Correct Procedure Yes -Procedure Performed Yes -Type of Procedure Debridement -Clinical Debridement Subcutaneous -Post Debridement Size (cm) - Length 2.8 -Post Debridement Size (cm) - Width 1.3 -Post Debridement Size (cm) - Depth 0.4 -Total Square Cm 3.64 -Wound/Ulcer Outcome Not Healed -Ulcer Cleansing Rinsed/ Irrigated with Saline -Foul Odor after Cleansing No -Bioengineered Tissue No -Bleeding Controlled with Pressure -Offloading No -Treatment Response Procedure Tolerated Well [See Physician Procedure note for Specifics] Pain Scale: 0-10 Numeric [Pain] -Is Patient Pain Free? Yes Musculoskeletal: No Tenderness to Palpation of Joints or Extremities Neurological: Cranial nerves II-XII grossly intact Psych/Mental Status: Normal Affect, Appropriate Debridement Note Post-Debridement Measurements/Treatment WC - Nurse 2 - General Ulcer CM Notes Start: 04/26/19 15:02 Freq: Status: Active Protocol: Activity Type Activity Date Activity User E-Sign Co-Sign Detail Recorded Client Recorded Date Recorded By Document 04/26/19 16:24 [id number] 04/26/19 16:33 CHARLI 04/26/19 16:24 Wound Center Nurse 2 #6- R LAT FOOT -Time 16:24 -Correct Patient Yes -Correct Side, Site, Position Yes -Correct Procedure Yes -Procedure Performed Yes -Type of Procedure Debridement -Clinical Debridement Subcutaneous -Post Debridement Size (cm) - Length 3.5 -Post Debridement Size (cm) - Width 2.5 -Post Debridement Size (cm) - Depth 0.4 -Total Square Cm 8.75 -Wound/Ulcer Outcome Not Healed -Ulcer Cleansing Rinsed/ Irrigated with Saline -Foul Odor after Cleansing No -Bioengineered Tissue No -Bleeding Controlled with Pressure -Offloading No -Treatment Response Procedure Tolerated Well #5- L HEEL PLANTAR cluster -Time 16:28 -Correct Patient Yes -Correct Side, Site, Position Yes -Correct Procedure Yes -Procedure Performed Yes -Type of Procedure Debridement -Clinical Debridement Subcutaneous -Post Debridement Size (cm) - Length 8.5 -Post Debridement Size (cm) - Width 4.4 -Post Debridement Size (cm) - Depth 1.0 -Total Square Cm 37.40 -Wound/Ulcer Outcome Not Healed -Ulcer Cleansing Rinsed/ Irrigated with Saline -Foul Odor after Cleansing No -Bioengineered Tissue No -Bleeding Controlled with Pressure -Offloading No -Treatment Response Procedure Tolerated Well #3- L LAT LE -Time 16:25 -Correct Patient Yes -Correct Side, Site, Position Yes -Correct Procedure Yes -Procedure Performed Yes -Type of Procedure Debridement -Clinical Debridement Subcutaneous -Post Debridement Size (cm) - Length 2.8 -Post Debridement Size (cm) - Width 1.3 -Post Debridement Size (cm) - Depth 0.4 -Total Square Cm 3.64 -Wound/Ulcer Outcome Not Healed -Ulcer Cleansing Rinsed/ Irrigated with Saline -Foul Odor after Cleansing No -Bioengineered Tissue No -Bleeding Controlled with Pressure -Offloading No -Treatment Response Procedure Tolerated Well Pain Scale: 0-10 Numeric Is Patient Pain Free? Yes Wound debrided: Left heel- two ulcers that after debridement are now one ulcer Laterality: Left Type of Debridement: Excisional debridement Anesthesia Used: 4% Lidocaine Solution, 5% Lidocaine Gel Depth: Down to and including healthy tissue, in the subcutaneous layer Percentage of wound debrided: 100 Instrument Used: 5mm curette, - - scissors and pick ups Tissue Removed: Subcutaneous tissue, slough Severity: Fat Layer Exposed Amount of bleeding with debridement: Mild Bleeding Controlled with: Pressure, Compression and gauze Patient tolerated procedure well - Additional Wound Wound debrided: left lateral leg Laterality: Left Type of Debridement: Excisional debridement Anesthesia Used: 4% Lidocaine Solution, 5% Lidocaine Gel Depth: Down to and including healthy tissue, in the subcutaneous layer Percentage of wound debrided: 100 Instrument Used: 7mm curette Tissue Removed: Subcutaneous tissue and slough Severity: Fat Layer Exposed Amount of bleeding with debridement: Mild Bleeding Controlled with: Pressure, Compression and gauze Patient tolerated procedure: Patient tolerated procedure well - Additional Wound Wound debrided: Right lateral ankle Laterality: Right Type of Debridement: Excisional debridement Anesthesia Used: 4% Lidocaine Solution, 5% Lidocaine Gel Depth: Down to and including healthy tissue, in the subcutaneous layer Percentage of wound debrided: 100 Instrument Used: 5mm curette Tissue Removed: Subcutaneous tissue and slough Severity: Fat Layer Exposed Amount of bleeding with debridement: Mild Bleeding Controlled with: Pressure, Compression and gauze Patient tolerated procedure: Patient tolerated procedure well Assessment/Plan Assessment: 1. Ulcer of right lateral ankle. 2. Ulcer of left lateral leg. 3. Ulcer of left heel (plantar to posterior aspect). 4. DM type 2. 5. Wheelchair bound due to paraplegia Plan: 34 year old male was evaluated in the wound healing center today. A subcutaneous debridement was performed. Will order Santyl to the ulcers to help with enzymatic debridement. Until he obtains the Santyl he will do Dakins solution moistened gauze covered by dry gauze daily to the ulcers. Encouraged elevation of extremities to help with edema management. Follow up in one week. Code Visit Office Visits / Consults: [id number] OV L3 Est - 25 modifier [id number]: [id number] Mylene subq tissue 20 sq cm/< Add On Codes: 06145 Mylene subq tissue add-on - x2
[2019-05-03 15:05] VITALS: BP 161/89; PULSE 108; RESP 16; TEMP 37; BMI 44.7
--- NOTE | 2019-05-03 17:06 | PCM.WC.PN ---
(1) Chronic ulcer of left heel Status: Chronic Current Visit: Yes Code(s): L97.429 - Non-pressure chronic ulcer of left heel and midfoot with unspecified severity (2) Ulcer of left lower extremity with fat layer exposed Status: Chronic Current Visit: Yes Code(s): L97.922 - Non-pressure chronic ulcer of unspecified part of left lower leg with fat layer exposed (3) Ulcer of right lower extremity with fat layer exposed Status: Chronic Current Visit: Yes Code(s): L97.912 - Non-pressure chronic ulcer of unspecified part of right lower leg with fat layer exposed (4) Type 2 diabetes mellitus Status: Chronic Current Visit: Yes Code(s): E11.9 - Type 2 diabetes mellitus without complications (5) 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 History of Wound: Patient is 34 year old male who is wheel chair bound, paraplegic. He is independent in his ADL's. He has a history of Type 2 DM, last A1C 7.8 last week. He has obtained these ulcers over the past 6-9 months by trauma. He states he bumps his legs/feet/ankles and the trauma causes an ulcer. He has been seen at both our wound healing center and [facility] in [place] in the past for previous uclers. The only wound care he has been doing is washing them with Dakins solution that he had left over from [facility]. Will start daily silver dressing changes daily. and use a tubigrip for compression. Today he denies fevers. States his appetite is good. Progress of Wound: Improved - Physical Exam Vital Signs Temp Pulse Resp BP 98.6 F 108 H 16 161/89 H 05/03/19 15:05 05/03/19 15:05 05/03/19 15:05 05/03/19 15:05 General: Alert, Oriented x3, Cooperative HEENT: Atraumatic Oral: Moist Mucosa Lungs: Normal air movement Cardiovascular: Regular rate Abdomen: Obese Extremities: Capillary Refill Less than 3 Seconds, Diminished Peripheral Pulses, Edema Skin: Ulcer/ Wound - Left heel ulcer on plantar to posterior heel. Left lateral leg ulcer and right lateral ankle ulcer. Wound Measurements and Assessment WC - Nurse 1 - General Ulcer Measurement Start: 04/26/19 15:02 Freq: Status: Active Protocol: Activity Type Activity Date Activity User E-Sign Co-Sign Detail Recorded Client Recorded Date Recorded By Document 05/03/19 15:05 [facility] [id number] 05/03/19 15:13 [facility] 05/03/19 15:05 Wound Center Nurse 1 [Ulcer Assessment] #6- R LAT FOOT -Combined with other wound No -Current Size (cm) - Length 3 -Current Size (cm) - Width 2.4 -Current Size (cm) - Depth 0.2 -Total Square Cm 7.2 -Photo Taken No -Epithelialization None Present -Tunneling No -Undermining/Tunneling No -Circular Undermining No -Exudate Amt Small -Exudate Type Serous -Wound Margin Distinct, Outline Attached -Granulation Amt Large (67-100%) -Granulation Quality [place],Red -Slough/Fibrin Yes -Necrosis Amt Small (1-33%) -Necrotic Tissue Type Adherent Slough -Texture (Temi-wound Skin Appearance) Assessed,Callus ,Scarring -Moisture (Temi-wound Skin Appearance Assessed,Dry/ ) Scaly -Color (Temi-wound Skin Appearance) Assessed -Temperature (Temi-wound Skin No Abnormality Appearance) (Pt Warm) -Tenderness on Palpation (Temi-wound No Skin Appearance) -Ulcer Cleansing Rinsed/ Irrigated with Saline -Foul Odor after Cleansing No #5- L HEEL PLANTAR cluster -Combined with other wound No -Current Size (cm) - Length 3.2 -Current Size (cm) - Width 3 -Current Size (cm) - Depth 0.2 -Total Square Cm 9.6 -Photo Taken No -Epithelialization None Present -Tunneling No -Undermining/Tunneling No -Circular Undermining No -Exudate Amt Small -Exudate Type Serous -Wound Margin Distinct, Outline Attached -Granulation Amt Small (1-33%) -Granulation Quality [place] -Slough/Fibrin Yes -Necrosis Amt Large (67-100%) -Necrotic Tissue Type Adherent Slough -Texture (Temi-wound Skin Appearance) Assessed, Scarring -Moisture (Temi-wound Skin Appearance Assessed,Dry/ ) Scaly -Color (Temi-wound Skin Appearance) Assessed -Temperature (Temi-wound Skin No Abnormality Appearance) (Pt Warm) -Tenderness on Palpation (Temi-wound No Skin Appearance) -Ulcer Cleansing Rinsed/ Irrigated with Saline -Foul Odor after Cleansing No #3- L LAT LE -Combined with other wound No -Current Size (cm) - Length 2.5 -Current Size (cm) - Width 1.0 -Current Size (cm) - Depth 0.3 -Total Square Cm 2.50 -Photo Taken No -Epithelialization None Present -Tunneling No -Undermining/Tunneling No -Circular Undermining No -Exudate Amt Small -Exudate Type Serous -Wound Margin Thickened -Granulation Amt Small (1-33%) -Granulation Quality [place] -Slough/Fibrin Yes -Necrosis Amt Medium (34-66%) -Necrotic Tissue Type Adherent Slough -Texture (Temi-wound Skin Appearance) Assessed, Scarring -Moisture (Temi-wound Skin Appearance Assessed,Dry/ ) Scaly -Color (Temi-wound Skin Appearance) Assessed -Temperature (Temi-wound Skin No Abnormality Appearance) (Pt Warm) -Tenderness on Palpation (Temi-wound No Skin Appearance) -Ulcer Cleansing Rinsed/ Irrigated with Saline -Foul Odor after Cleansing No WC - Nurse 2 - General Ulcer CM Notes Start: 04/26/19 15:02 Freq: Status: Active Protocol: Activity Type Activity Date Activity User E-Sign Co-Sign Detail Recorded Client Recorded Date Recorded By Document 05/03/19 15:21 [facility] [id number] 05/03/19 15:33 [facility]LI 05/03/19 15:21 Wound Center Nurse 2 [Procedure/Treatment] #6- R LAT FOOT -Time 15:22 -Correct Patient Yes -Correct Side, Site, Position Yes -Correct Procedure Yes -Procedure Performed Yes -Type of Procedure Debridement -Clinical Debridement Subcutaneous -Post Debridement Size (cm) - Length 3.0 -Post Debridement Size (cm) - Width 2.3 -Post Debridement Size (cm) - Depth 0.3 -Total Square Cm 6.90 -Wound/Ulcer Outcome Not Healed -Ulcer Cleansing Rinsed/ Irrigated with Saline -Foul Odor after Cleansing No -Bioengineered Tissue No -Bleeding Controlled with Pressure -Offloading No -Treatment Response Procedure Tolerated Well #5- L HEEL PLANTAR cluster -Time 15:31 -Correct Patient Yes -Correct Side, Site, Position Yes -Correct Procedure Yes -Procedure Performed Yes -Type of Procedure Debridement -Clinical Debridement Subcutaneous -Post Debridement Size (cm) - Length 6.8 -Post Debridement Size (cm) - Width 3.2 -Post Debridement Size (cm) - Depth 0.8 -Total Square Cm 21.76 -Wound/Ulcer Outcome Not Healed -Ulcer Cleansing Rinsed/ Irrigated with Saline -Foul Odor after Cleansing No -Bioengineered Tissue No -Bleeding Controlled with Pressure -Offloading No -Treatment Response Procedure Tolerated Well #3- L LAT LE -Time 15:31 -Correct Patient Yes -Correct Side, Site, Position Yes -Correct Procedure Yes -Procedure Performed Yes -Type of Procedure Debridement -Clinical Debridement Subcutaneous -Post Debridement Size (cm) - Length 2.4 -Post Debridement Size (cm) - Width 0.8 -Post Debridement Size (cm) - Depth 0.3 -Total Square Cm 1.92 -Wound/Ulcer Outcome Not Healed -Ulcer Cleansing Rinsed/ Irrigated with Saline -Foul Odor after Cleansing No -Bioengineered Tissue No -Bleeding Controlled with Pressure -Offloading No -Treatment Response Procedure Tolerated Well [See Physician Procedure note for Specifics] Pain Scale: 0-10 Numeric [Pain] -Is Patient Pain Free? Yes Musculoskeletal: No Tenderness to Palpation of Joints or Extremities Neurological: Cranial nerves II-XII grossly intact Psych/Mental Status: Normal Affect, Appropriate Debridement Note Post-Debridement Measurements/Treatment WC - Nurse 2 - General Ulcer CM Notes Start: 04/26/19 15:02 Freq: Status: Active Protocol: Activity Type Activity Date Activity User E-Sign Co-Sign Detail Recorded Client Recorded Date Recorded By Document 04/26/19 16:24 [id number] 04/26/19 16:33 Document 05/03/19 15:21 [id number] 05/03/19 15:33 04/26/19 05/03/19 16:24 15:21 Wound Center Nurse 2 #6- R LAT FOOT -Time 16:24 15:22 -Correct Patient Yes Yes -Correct Side, Site, Position Yes Yes -Correct Procedure Yes Yes -Procedure Performed Yes Yes -Type of Procedure Debridement Debridement -Clinical Debridement Subcutaneous Subcutaneous -Post Debridement Size (cm) - Length 3.5 3.0 -Post Debridement Size (cm) - Width 2.5 2.3 -Post Debridement Size (cm) - Depth 0.4 0.3 -Total Square Cm 8.75 6.90 -Wound/Ulcer Outcome Not Healed Not Healed -Ulcer Cleansing Rinsed/ Rinsed/ Irrigated with Irrigated with Saline Saline -Foul Odor after Cleansing No No -Bioengineered Tissue No No -Bleeding Controlled with Pressure Pressure -Offloading No No -Treatment Response Procedure Procedure Tolerated Well Tolerated Well #5- L HEEL PLANTAR cluster -Time 16:28 15:31 -Correct Patient Yes Yes -Correct Side, Site, Position Yes Yes -Correct Procedure Yes Yes -Procedure Performed Yes Yes -Type of Procedure Debridement Debridement -Clinical Debridement Subcutaneous Subcutaneous -Post Debridement Size (cm) - Length 8.5 6.8 -Post Debridement Size (cm) - Width 4.4 3.2 -Post Debridement Size (cm) - Depth 1.0 0.8 -Total Square Cm 37.40 21.76 -Wound/Ulcer Outcome Not Healed Not Healed -Ulcer Cleansing Rinsed/ Rinsed/ Irrigated with Irrigated with Saline Saline -Foul Odor after Cleansing No No -Bioengineered Tissue No No -Bleeding Controlled with Pressure Pressure -Offloading No No -Treatment Response Procedure Procedure Tolerated Well Tolerated Well #3- L LAT LE -Time 16:25 15:31 -Correct Patient Yes Yes -Correct Side, Site, Position Yes Yes -Correct Procedure Yes Yes -Procedure Performed Yes Yes -Type of Procedure Debridement Debridement -Clinical Debridement Subcutaneous Subcutaneous -Post Debridement Size (cm) - Length 2.8 2.4 -Post Debridement Size (cm) - Width 1.3 0.8 -Post Debridement Size (cm) - Depth 0.4 0.3 -Total Square Cm 3.64 1.92 -Wound/Ulcer Outcome Not Healed Not Healed -Ulcer Cleansing Rinsed/ Rinsed/ Irrigated with Irrigated with Saline Saline -Foul Odor after Cleansing No No -Bioengineered Tissue No No -Bleeding Controlled with Pressure Pressure -Offloading No No -Treatment Response Procedure Procedure Tolerated Well Tolerated Well Pain Scale: 0-10 Numeric Is Patient Pain Free? Yes Yes Wound debrided: ankle Laterality: Right Type of Debridement: Excisional debridement Anesthesia Used: 4% Lidocaine Solution, 5% Lidocaine Gel Depth: Down to and including healthy tissue, in the subcutaneous layer Percentage of wound debrided: 100 Instrument Used: 5mm curette Tissue Removed: Subcutaneous tissue and slough Severity: Fat Layer Exposed Amount of bleeding with debridement: Mild Bleeding Controlled with: Pressure, Compression and gauze Patient tolerated procedure well - Additional Wound Wound debrided: lateral ankle Laterality: Left Type of Debridement: Excisional debridement Anesthesia Used: 4% Lidocaine Solution, 5% Lidocaine Gel Depth: Down to and including healthy tissue, in the subcutaneous layer Percentage of wound debrided: 100 Instrument Used: 7mm curette Tissue Removed: Subcutaneous tissue and slough Severity: Fat Layer Exposed Amount of bleeding with debridement: Mild Bleeding Controlled with: Pressure, Compression and gauze Patient tolerated procedure: Patient tolerated procedure well - Additional Wound Wound debrided: plantar to posterio heel Laterality: Left Type of Debridement: Excisional debridement Anesthesia Used: 4% Lidocaine Solution, 5% Lidocaine Gel Depth: Down to and including healthy tissue, in the subcutaneous layer Percentage of wound debrided: 100 Instrument Used: 7mm curette Tissue Removed: Subcutaneous tissue and slough Severity: Fat Layer Exposed Amount of bleeding with debridement: Moderate Bleeding Controlled with: Pressure, Compression and gauze Patient tolerated procedure: Patient tolerated procedure well Assessment/Plan Active Problems (Last Reviewed 01/10/19 @ 19:48 by Ilan Pichardo DO) Ulcer of left lower extremity with fat layer exposed (Chronic) Chronic ulcer of left heel (Chronic) Ulcer of right lower extremity with fat layer exposed (Chronic) Type 2 diabetes mellitus (Chronic) 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 Ulcer of right lateral ankle. 2. Ulcer of left lateral leg. 3. Ulcer of left heel (plantar to posterior aspect). 4. DM type 2. 5. Wheelchair bound due to paraplegia Plan: 34 year old male was evaluated in the wound healing center today. A subcutaneous debridement was performed. Ordered Santyl but it was too expensive. Last week he used Dakin's until he finished it and then he used left over silver that he had from previous ulcers. There is improvement in his ulcers. Will continue the daily silver dressing changes. Will apply Tubigrip for compression. Encouraged elevation of extremities to help with edema management. Follow up in one week.
[2019-05-17 15:41] VITALS: BP 155/100; PULSE 98; RESP 16; TEMP 36.4; BMI 44.7
--- NOTE | 2019-05-17 17:58 | PN.PCM_ITS ---
(1) Chronic ulcer of left heel Status: Chronic Code(s): L97.429 - Non-pressure chronic ulcer of left heel and midfoot with unspecified severity (2) Ulcer of left lower extremity with fat layer exposed Status: Chronic Code(s): L97.922 - Non-pressure chronic ulcer of unspecified part of left lower leg with fat layer exposed (3) Ulcer of right lower extremity with fat layer exposed Status: Chronic Code(s): L97.912 - Non-pressure chronic ulcer of unspecified part of right lower leg with fat layer exposed (4) Type 2 diabetes mellitus Status: Chronic Code(s): E11.9 - Type 2 diabetes mellitus without complications (5) 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 History of Wound: Patient is 34 year old male who is wheel chair bound, paraplegic. He is independent in his ADL's. He has a history of Type 2 DM, last A1C 7.8 last week. He has obtained these ulcers over the past 6-9 months by trauma. He states he bumps his legs/feet/ankles and the trauma causes an ulcer. He has been seen at both our wound healing center and [facility] in [place] in the past for previous uclers. The only wound care he has been doing is washing them with Dakins solution that he had left over from [facility]. Will start daily silver dressing changes daily. and use a tubigrip for compression. Today he denies fevers. States his appetite is good. Progress of Wound: Improved - Physical Exam Vital Signs Temp Pulse Resp BP 97.5 F L 98 16 155/100 H 05/17/19 15:41 05/17/19 15:41 05/17/19 15:41 05/17/19 15:41 General: Alert, Oriented x3, Cooperative HEENT: Atraumatic Oral: Moist Mucosa Lungs: Normal air movement Cardiovascular: Regular rate Extremities: Capillary Refill Less than 3 Seconds, Diminished Peripheral Pulses Skin: Ulcer/ Wound - Left heel ulcer, left lateral lower leg, right lateral ankle ulcers Wound Measurements and Assessment WC - Nurse 1 - General Ulcer Measurement Start: 04/26/19 15:02 Freq: Status: Active Protocol: Activity Type Activity Date Activity User E-Sign Co-Sign Detail Recorded Client Recorded Date Recorded By Document 05/17/19 15:41 [facility] [id number] 05/17/19 16:00 [facility] 05/17/19 15:41 Wound Center Nurse 1 [Ulcer Assessment] #6- R LAT FOOT -Combined with other wound No -Current Size (cm) - Length 2.4 -Current Size (cm) - Width 2.1 -Current Size (cm) - Depth 0.4 -Total Square Cm 5.04 -Photo Taken No -Epithelialization None Present -Tunneling No -Undermining/Tunneling No -Circular Undermining No -Exudate Amt Medium -Exudate Type Purulent -Wound Margin Distinct, Outline Attached -Granulation Amt Medium (34-66%) -Granulation Quality Pale,[place] -Slough/Fibrin Yes -Necrosis Amt Small (1-33%) -Necrotic Tissue Type Adherent Slough -Texture (Temi-wound Skin Appearance) Assessed, Scarring -Moisture (Temi-wound Skin Appearance Assessed,Dry/ ) Scaly -Color (Temi-wound Skin Appearance) Assessed -Temperature (Temi-wound Skin No Abnormality Appearance) (Pt Warm) -Tenderness on Palpation (Temi-wound No Skin Appearance) -Ulcer Cleansing Rinsed/ Irrigated with Saline -Foul Odor after Cleansing No #5- L HEEL PLANTAR cluster -Combined with other wound No -Current Size (cm) - Length 5.6 -Current Size (cm) - Width 2.5 -Current Size (cm) - Depth 0.4 -Total Square Cm 14.00 -Photo Taken No -Epithelialization None Present -Tunneling No -Undermining/Tunneling No -Circular Undermining No -Exudate Amt Medium -Exudate Type Yellow/Green -Wound Margin Distinct, Outline Attached -Granulation Amt Small (1-33%) -Granulation Quality [place] -Slough/Fibrin Yes -Necrosis Amt Large (67-100%) -Necrotic Tissue Type Adherent Slough -Texture (Temi-wound Skin Appearance) Assessed, Scarring -Moisture (Temi-wound Skin Appearance Assessed,Dry/ ) Scaly -Color (Temi-wound Skin Appearance) Assessed, Erythema -Temperature (Temi-wound Skin No Abnormality Appearance) (Pt Warm) -Tenderness on Palpation (Temi-wound No Skin Appearance) -Ulcer Cleansing soap and water -Foul Odor after Cleansing No #3- L LAT LE -Combined with other wound No -Current Size (cm) - Length 2.3 -Current Size (cm) - Width 0.7 -Current Size (cm) - Depth 0.3 -Total Square Cm 1.61 -Photo Taken No -Epithelialization None Present -Tunneling No -Undermining/Tunneling No -Circular Undermining No -Exudate Amt Small -Exudate Type Serosanguineous -Wound Margin Distinct, Outline Attached -Granulation Amt Medium (34-66%) -Granulation Quality Pale,Red -Slough/Fibrin Yes -Necrosis Amt Medium (34-66%) -Necrotic Tissue Type Adherent Slough -Texture (Temi-wound Skin Appearance) Assessed, Scarring -Moisture (Temi-wound Skin Appearance Assessed,Dry/ ) Scaly -Color (Temi-wound Skin Appearance) Assessed -Temperature (Temi-wound Skin No Abnormality Appearance) (Pt Warm) -Tenderness on Palpation (Temi-wound No Skin Appearance) -Ulcer Cleansing Rinsed/ Irrigated with Saline -Foul Odor after Cleansing No WC - Nurse 2 - General Ulcer CM Notes Start: 04/26/19 15:02 Freq: Status: Active Protocol: Activity Type Activity Date Activity User E-Sign Co-Sign Detail Recorded Client Recorded Date Recorded By Document 05/17/19 16:23 [id number] 05/17/19 16:30 05/17/19 16:23 Wound Center Nurse 2 [Procedure/Treatment] #6- R LAT FOOT -Time 16:30 -Correct Patient Yes -Correct Side, Site, Position Yes -Correct Procedure Yes -Procedure Performed Yes -Type of Procedure Debridement -Clinical Debridement Subcutaneous -Post Debridement Size (cm) - Length 2.5 -Post Debridement Size (cm) - Width 2.2 -Post Debridement Size (cm) - Depth 0.3 -Total Square Cm 5.50 -Wound/Ulcer Outcome Not Healed -Ulcer Cleansing Rinsed/ Irrigated with Saline -Foul Odor after Cleansing No -Bioengineered Tissue No -Bleeding Controlled with Pressure -Offloading No -Treatment Response Procedure Tolerated Well #5- L HEEL PLANTAR cluster -Time 16:24 -Correct Patient Yes -Correct Side, Site, Position Yes -Correct Procedure Yes -Procedure Performed Yes -Type of Procedure Debridement -Clinical Debridement Subcutaneous -Post Debridement Size (cm) - Length 5.7 -Post Debridement Size (cm) - Width 2.5 -Post Debridement Size (cm) - Depth 0.7 -Total Square Cm 14.25 -Wound/Ulcer Outcome Not Healed -Ulcer Cleansing Rinsed/ Irrigated with Saline -Foul Odor after Cleansing No -Bioengineered Tissue No -Bleeding Controlled with Pressure -Offloading No -Treatment Response Procedure Tolerated Well #3- L LAT LE -Time 16:24 -Correct Patient Yes -Correct Side, Site, Position Yes -Correct Procedure Yes -Procedure Performed Yes -Type of Procedure Debridement -Clinical Debridement Subcutaneous -Post Debridement Size (cm) - Length 2.3 -Post Debridement Size (cm) - Width 1.3 -Post Debridement Size (cm) - Depth 0.3 -Total Square Cm 2.99 -Wound/Ulcer Outcome Not Healed -Ulcer Cleansing Rinsed/ Irrigated with Saline -Foul Odor after Cleansing No -Bioengineered Tissue No -Bleeding Controlled with Pressure -Offloading No -Treatment Response Procedure Tolerated Well [See Physician Procedure note for Specifics] Pain Scale: 0-10 Numeric [Pain] -Is Patient Pain Free? Yes Musculoskeletal: No Tenderness to Palpation of Joints or Extremities Neurological: Cranial nerves II-XII grossly intact Psych/Mental Status: Normal Affect, Appropriate Debridement Note Post-Debridement Measurements/Treatment WC - Nurse 2 - General Ulcer CM Notes Start: 04/26/19 15:02 Freq: Status: Active Protocol: Activity Type Activity Date Activity User E-Sign Co-Sign Detail Recorded Client Recorded Date Recorded By Document 04/26/19 16:24 [id number] 04/26/19 16:33 Document 05/03/19 15:21 [id number] 05/03/19 15:33 Document 05/17/19 16:23 [id number] 05/17/19 16:30 04/26/19 05/03/19 05/17/19 16:24 15:21 16:23 Wound Center Nurse 2 #6- R LAT FOOT -Time 16:24 15:22 16:30 -Correct Patient Yes Yes Yes -Correct Side, Site, Position Yes Yes Yes -Correct Procedure Yes Yes Yes -Procedure Performed Yes Yes Yes -Type of Procedure Debridement Debridement Debridement -Clinical Debridement Subcutaneous Subcutaneous Subcutaneous -Post Debridement Size (cm) - Length 3.5 3.0 2.5 -Post Debridement Size (cm) - Width 2.5 2.3 2.2 -Post Debridement Size (cm) - Depth 0.4 0.3 0.3 -Total Square Cm 8.75 6.90 5.50 -Wound/Ulcer Outcome Not Healed Not Healed Not Healed -Ulcer Cleansing Rinsed/ Rinsed/ Rinsed/ Irrigated with Irrigated with Irrigated with Saline Saline Saline -Foul Odor after Cleansing No No No -Bioengineered Tissue No No No -Bleeding Controlled with Pressure Pressure Pressure -Offloading No No No -Treatment Response Procedure Procedure Procedure Tolerated Well Tolerated Well Tolerated Well #5- L HEEL PLANTAR cluster -Time 16:28 15:31 16:24 -Correct Patient Yes Yes Yes -Correct Side, Site, Position Yes Yes Yes -Correct Procedure Yes Yes Yes -Procedure Performed Yes Yes Yes -Type of Procedure Debridement Debridement Debridement -Clinical Debridement Subcutaneous Subcutaneous Subcutaneous -Post Debridement Size (cm) - Length 8.5 6.8 5.7 -Post Debridement Size (cm) - Width 4.4 3.2 2.5 -Post Debridement Size (cm) - Depth 1.0 0.8 0.7 -Total Square Cm 37.40 21.76 14.25 -Wound/Ulcer Outcome Not Healed Not Healed Not Healed -Ulcer Cleansing Rinsed/ Rinsed/ Rinsed/ Irrigated with Irrigated with Irrigated with Saline Saline Saline -Foul Odor after Cleansing No No No -Bioengineered Tissue No No No -Bleeding Controlled with Pressure Pressure Pressure -Offloading No No No -Treatment Response Procedure Procedure Procedure Tolerated Well Tolerated Well Tolerated Well #3- L LAT LE -Time 16:25 15:31 16:24 -Correct Patient Yes Yes Yes -Correct Side, Site, Position Yes Yes Yes -Correct Procedure Yes Yes Yes -Procedure Performed Yes Yes Yes -Type of Procedure Debridement Debridement Debridement -Clinical Debridement Subcutaneous Subcutaneous Subcutaneous -Post Debridement Size (cm) - Length 2.8 2.4 2.3 -Post Debridement Size (cm) - Width 1.3 0.8 1.3 -Post Debridement Size (cm) - Depth 0.4 0.3 0.3 -Total Square Cm 3.64 1.92 2.99 -Wound/Ulcer Outcome Not Healed Not Healed Not Healed -Ulcer Cleansing Rinsed/ Rinsed/ Rinsed/ Irrigated with Irrigated with Irrigated with Saline Saline Saline -Foul Odor after Cleansing No No No -Bioengineered Tissue No No No -Bleeding Controlled with Pressure Pressure Pressure -Offloading No No No -Treatment Response Procedure Procedure Procedure Tolerated Well Tolerated Well Tolerated Well Pain Scale: 0-10 Numeric Is Patient Pain Free? Yes Yes Yes Wound debrided: lateral ankle Laterality: Right Type of Debridement: Excisional debridement Anesthesia Used: 4% Lidocaine Solution, 5% Lidocaine Gel Depth: Down to and including healthy tissue, in the subcutaneous layer Percentage of wound debrided: 100 Instrument Used: 7mm curette Tissue Removed: Subcutaneous tissue and slough Severity: Fat Layer Exposed Amount of bleeding with debridement: Mild Bleeding Controlled with: Pressure, Compression and gauze Patient tolerated procedure well - Additional Wound Wound debrided: heel Laterality: Left Type of Debridement: Excisional debridement Anesthesia Used: 4% Lidocaine Solution, 5% Lidocaine Gel Depth: Down to and including healthy tissue, in the subcutaneous layer Percentage of wound debrided: 100 Instrument Used: 5mm curette Tissue Removed: Subcutaneous tissue and slough Severity: Fat Layer Exposed Amount of bleeding with debridement: Mild Bleeding Controlled with: Pressure, Compression and gauze Patient tolerated procedure: Patient tolerated procedure well - Additional Wound Wound debrided: lateral lower leg Laterality: Left Type of Debridement: Excisional debridement Anesthesia Used: 4% Lidocaine Solution, 5% Lidocaine Gel Depth: Down to and including healthy tissue, in the subcutaneous layer Percentage of wound debrided: 100 Instrument Used: 5mm curette Tissue Removed: Subcutaneous tissue and slough Severity: Fat Layer Exposed Amount of bleeding with debridement: Mild Bleeding Controlled with: Pressure, Compression and gauze Patient tolerated procedure: Patient tolerated procedure well Assessment/Plan Assessment: 1. Ulcer of right lateral ankle. 2. Ulcer of left lateral leg. 3. Ulcer of left heel (plantar to posterior aspect). 4. DM type 2. 5. Wheelchair bound due to paraplegia Plan: 34 year old male was evaluated in the wound healing center today. A subcutaneous debridement was performed. Ordered Santyl but it was too expensive. Last week he used Dakin's until he finished it and then he used left over silver that he had from previous ulcers. There is improvement in his ulcers. Will continue the daily silver dressing changes. Will apply Tubigrip for compression. Will apply for Apligraft advanced wound dressing. He would benefit from an advanced would product to help heal his ulcers. Encouraged elevation of extremities to help with edema management. Follow up in one week. Code Visit [id number]: [id number] Mylene subq tissue 20 sq cm/< Add On Codes: 22292 Mylene subq tissue add-on
== END 2019-05-19 23:59 ==
LOC: WC 15:30
PROVIDERS: Family Provider Internal Medicine; PCP Internal Medicine; Referring Provider Nurse Practitioner Family; Visit Provider Nurse Practitioner Family
DX: E11.621 Type 2 diabetes mellitus with foot ulcer (principal); L97.422 Non-pressure chronic ulcer of left heel and midfoot with fat layer exposed; G82.20 Paraplegia, unspecified; Z99.3 Dependence on wheelchair; I10 Essential (primary) hypertension; Z87.891 Personal history of nicotine dependence; E11.622 Type 2 diabetes mellitus with other skin ulcer; L97.312 Non-pressure chronic ulcer of right ankle with fat layer exposed
CPT/HCPCS: 11042; 11045; 99213; G0463

== ENCOUNTER → 2019-05-17 | Outpatient (CLI) | payer MEDICARE, OTHER, SELFPAY ==
[2019-04-15 14:53] VITALS: BMI 37.6
[2019-05-03 15:05] VITALS: BMI 44.7
== END | disposition home or self-care (01) ==
LOC: SL 06:38
PROVIDERS: Family Provider Internal Medicine; PCP Internal Medicine; Referring Provider Internal Medicine; Visit Provider Internal Medicine
DX: G47.30 Sleep apnea, unspecified (principal); G47.10 Hypersomnia, unspecified
CPT/HCPCS: 95811

== ENCOUNTER 2019-06-14 14:30 | Outpatient (RCR) | payer MEDICARE, SELFPAY ==
[2019-05-20 01:23] VITALS: BP 155/100; PULSE 98; RESP 16; TEMP 36.4
[2019-05-24 13:31] VITALS: BP 129/95; PULSE 105; RESP 16; TEMP 36.4; BMI 44.7
--- NOTE | 2019-05-24 14:53 | PN.PCM_ITS ---
(1) Ulcer of left lower extremity with fat layer exposed Status: Chronic Code(s): L97.922 - Non-pressure chronic ulcer of unspecified part of left lower leg with fat layer exposed (2) Chronic ulcer of left heel Status: Chronic Code(s): L97.429 - Non-pressure chronic ulcer of left heel and midfoot with unspecified severity (3) Ulcer of right lower extremity with fat layer exposed Status: Chronic Code(s): L97.912 - Non-pressure chronic ulcer of unspecified part of right lower leg with fat layer exposed (4) Type 2 diabetes mellitus Status: Chronic Code(s): E11.9 - Type 2 diabetes mellitus without complications (5) Paralysis Status: Chronic Code(s): G83.9 - Paralytic syndrome, unspecified (6) 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 History of Wound: Patient is 34 year old male who is wheel chair bound, paraplegic. He is independent in his ADL's. He has a history of Type 2 DM, last A1C 7.8 last week. He has obtained these ulcers over the past 6-9 months by trauma. He states he bumps his legs/feet/ankles and the trauma causes an ulcer. He has been seen at both our wound healing center and [facility]'s in [place] in the past for previous uclers. The only wound care he has been doing is washing them with Dakins solution that he had left over from [facility]. He was approved for Apligraft which #1 with wound veil was placed today. Will use a tubigrip for compression. Today he denies fevers. States his appetite is good, encourage increase in protein intake. Progress of Wound: Improved - Physical Exam Vital Signs Temp Pulse Resp BP 97.5 F L 105 H 16 129/95 H 05/24/19 13:31 05/24/19 13:31 05/24/19 13:31 05/24/19 13:31 General: Alert, Oriented x3, Cooperative HEENT: Atraumatic Oral: Moist Mucosa Lungs: Normal air movement Cardiovascular: Regular rate Extremities: Capillary Refill Less than 3 Seconds, Edema, Peripheral Pulses Normal Skin: Ulcer/ Wound - Right lateral ankle ulcer, left heel ulcer, left lateral leg ulcer Wound Measurements and Assessment WC - Nurse 1 - General Ulcer Measurement Start: 05/24/19 13:31 Freq: Status: Active Protocol: Activity Type Activity Date Activity User E-Sign Co-Sign Detail Recorded Client Recorded Date Recorded By Document 05/24/19 13:[address] [facility] [id number] 05/24/19 13:[address] [facility] 05/24/19 13:31 Wound Center Nurse 1 [Ulcer Assessment] #6- R LAT FOOT -Combined with other wound No -Current Size (cm) - Length 2.8 -Current Size (cm) - Width 2 -Current Size (cm) - Depth 0.2 -Total Square Cm 5.6 -Photo Taken No -Epithelialization None Present -Tunneling No -Undermining/Tunneling No -Circular Undermining No -Exudate Amt Small -Exudate Type Serous -Wound Margin Distinct, Outline Attached -Granulation Amt None Present (0 %) -Slough/Fibrin Yes -Necrosis Amt Large (67-100%) -Necrotic Tissue Type Adherent Slough -Texture (Temi-wound Skin Appearance) Assessed, Scarring -Moisture (Temi-wound Skin Appearance Assessed ) -Color (Temi-wound Skin Appearance) Assessed -Temperature (Temi-wound Skin No Abnormality Appearance) (Pt Warm) -Tenderness on Palpation (Temi-wound No Skin Appearance) -Ulcer Cleansing Rinsed/ Irrigated with Saline -Foul Odor after Cleansing No #5- L HEEL PLANTAR cluster -Combined with other wound No -Current Size (cm) - Length 5.2 -Current Size (cm) - Width 2.2 -Current Size (cm) - Depth 0.2 -Total Square Cm 11.44 -Photo Taken No -Epithelialization Small 1-33% -Tunneling No -Undermining/Tunneling No -Circular Undermining No -Exudate Amt Medium -Exudate Type Serosanguineous -Wound Margin Distinct, Outline Attached -Granulation Amt Large (67-100%) -Granulation Quality Pale,Red -Slough/Fibrin Yes -Necrosis Amt Small (1-33%) -Necrotic Tissue Type Adherent Slough -Texture (Temi-wound Skin Appearance) Assessed, Scarring -Moisture (Temi-wound Skin Appearance Assessed,Dry/ ) Scaly -Color (Temi-wound Skin Appearance) Assessed -Temperature (Temi-wound Skin No Abnormality Appearance) (Pt Warm) -Tenderness on Palpation (Temi-wound No Skin Appearance) -Ulcer Cleansing Rinsed/ Irrigated with Saline -Foul Odor after Cleansing No #3- L LAT LE -Combined with other wound No -Current Size (cm) - Length 3.7 -Current Size (cm) - Width 1.4 -Current Size (cm) - Depth 0.2 -Total Square Cm 5.18 -Photo Taken No -Epithelialization Small 1-33% -Tunneling No -Undermining/Tunneling No -Circular Undermining No -Exudate Amt Small -Exudate Type Serosanguineous -Wound Margin Distinct, Outline Attached -Granulation Amt Large (67-100%) -Granulation Quality Red -Slough/Fibrin Yes -Necrosis Amt Small (1-33%) -Necrotic Tissue Type Adherent Slough -Texture (Temi-wound Skin Appearance) Assessed, Scarring -Moisture (Temi-wound Skin Appearance Assessed,Dry/ ) Scaly -Color (Temi-wound Skin Appearance) Assessed -Temperature (Temi-wound Skin No Abnormality Appearance) (Pt Warm) -Tenderness on Palpation (Temi-wound No Skin Appearance) -Ulcer Cleansing Rinsed/ Irrigated with Saline -Foul Odor after Cleansing No [Edema Assessment] -Lower Limb Edema Present Yes -Right Calf (cm) 40 -Right Ankle (cm) 27.4 -Left Calf (cm) 40.9 -Left Ankle (cm) 27.2 WC - Nurse 2 - General Ulcer CM Notes Start: 05/24/19 13:31 Freq: Status: Active Protocol: Activity Type Activity Date Activity User E-Sign Co-Sign Detail Recorded Client Recorded Date Recorded By Document 05/24/19 13:49 [id number] 05/24/19 14:08 05/24/19 13:49 Wound Center Nurse 2 [Procedure/Treatment] #6- R LAT FOOT -Time 13:52 -Correct Patient Yes -Correct Side, Site, Position Yes -Correct Procedure Yes -Procedure Performed Yes -Type of Procedure Debridement -Clinical Debridement Subcutaneous -Post Debridement Size (cm) - Length 2.5 -Post Debridement Size (cm) - Width 2.5 -Post Debridement Size (cm) - Depth 0.3 -Total Square Cm 6.25 -Wound/Ulcer Outcome Not Healed -Ulcer Cleansing Rinsed/ Irrigated with Saline -Foul Odor after Cleansing No -Bioengineered Tissue Yes -Type of bioengineered Tissue Apligraf -Expiration Date 05/26/19 -Product Lot Number [id number] -Percent Used 100 -Saline Lot Number [id number] -Bleeding Controlled with Pressure -Offloading No -Treatment Response Procedure Tolerated Well #5- L HEEL PLANTAR cluster -Time 13:52 -Correct Patient Yes -Correct Side, Site, Position Yes -Correct Procedure Yes -Procedure Performed Yes -Type of Procedure Debridement -Clinical Debridement Subcutaneous -Post Debridement Size (cm) - Length 5.7 -Post Debridement Size (cm) - Width 2.3 -Post Debridement Size (cm) - Depth 0.5 -Total Square Cm 13.11 -Wound/Ulcer Outcome Not Healed -Ulcer Cleansing Rinsed/ Irrigated with Saline -Foul Odor after Cleansing No -Bioengineered Tissue Yes -Type of bioengineered Tissue Apligraf -Expiration Date 05/26/19 -Product Lot Number [id number] -Percent Used 100 -Saline Lot Number [id number] -Bleeding Controlled with Pressure -Offloading No -Treatment Response Procedure Tolerated Well #3- L LAT LE -Time 13:51 -Correct Patient Yes -Correct Side, Site, Position Yes -Correct Procedure Yes -Procedure Performed Yes -Type of Procedure Debridement -Clinical Debridement Subcutaneous -Post Debridement Size (cm) - Length 3.3 -Post Debridement Size (cm) - Width 1.0 -Post Debridement Size (cm) - Depth 0.3 -Total Square Cm 3.30 -Wound/Ulcer Outcome Not Healed -Ulcer Cleansing Rinsed/ Irrigated with Saline -Foul Odor after Cleansing No -Bioengineered Tissue Yes -Type of bioengineered Tissue Apligraf -Expiration Date 05/26/19 -Product Lot Number [id number] -Percent Used 100 -Saline Lot Number [id number] -Bleeding Controlled with Pressure -Offloading No -Treatment Response Procedure Tolerated Well [See Physician Procedure note for Specifics] Pain Scale: 0-10 Numeric [Pain] -Is Patient Pain Free? Yes Musculoskeletal: No Muscle Wasting Neurological: Cranial nerves II-XII grossly intact Psych/Mental Status: Normal Affect, Appropriate Debridement Note Post-Debridement Measurements/Treatment WC - Nurse 2 - General Ulcer CM Notes Start: 05/24/19 13:31 Freq: Status: Active Protocol: Activity Type Activity Date Activity User E-Sign Co-Sign Detail Recorded Client Recorded Date Recorded By Document 05/24/19 13:49 CHARLI [email or web address] 05/24/19 14:08 CHARLI 05/24/19 13:49 Wound Center Nurse 2 #6- R LAT FOOT -Time 13:52 -Correct Patient Yes -Correct Side, Site, Position Yes -Correct Procedure Yes -Procedure Performed Yes -Type of Procedure Debridement -Clinical Debridement Subcutaneous -Post Debridement Size (cm) - Length 2.5 -Post Debridement Size (cm) - Width 2.5 -Post Debridement Size (cm) - Depth 0.3 -Total Square Cm 6.25 -Wound/Ulcer Outcome Not Healed -Ulcer Cleansing Rinsed/ Irrigated with Saline -Foul Odor after Cleansing No -Bioengineered Tissue Yes -Type of bioengineered Tissue Apligraf -Expiration Date 05/26/19 -Product Lot Number [id number] -Percent Used 100 -Saline Lot Number [id number] -Bleeding Controlled with Pressure -Offloading No -Treatment Response Procedure Tolerated Well #5- L HEEL PLANTAR cluster -Time 13:52 -Correct Patient Yes -Correct Side, Site, Position Yes -Correct Procedure Yes -Procedure Performed Yes -Type of Procedure Debridement -Clinical Debridement Subcutaneous -Post Debridement Size (cm) - Length 5.7 -Post Debridement Size (cm) - Width 2.3 -Post Debridement Size (cm) - Depth 0.5 -Total Square Cm 13.11 -Wound/Ulcer Outcome Not Healed -Ulcer Cleansing Rinsed/ Irrigated with Saline -Foul Odor after Cleansing No -Bioengineered Tissue Yes -Type of bioengineered Tissue Apligraf -Expiration Date 05/26/19 -Product Lot Number [id number] -Percent Used 100 -Saline Lot Number [id number] -Bleeding Controlled with Pressure -Offloading No -Treatment Response Procedure Tolerated Well #3- L LAT LE -Time 13:51 -Correct Patient Yes -Correct Side, Site, Position Yes -Correct Procedure Yes -Procedure Performed Yes -Type of Procedure Debridement -Clinical Debridement Subcutaneous -Post Debridement Size (cm) - Length 3.3 -Post Debridement Size (cm) - Width 1.0 -Post Debridement Size (cm) - Depth 0.3 -Total Square Cm 3.30 -Wound/Ulcer Outcome Not Healed -Ulcer Cleansing Rinsed/ Irrigated with Saline -Foul Odor after Cleansing No -Bioengineered Tissue Yes -Type of bioengineered Tissue Apligraf -Expiration Date 05/26/19 -Product Lot Number [id number] -Percent Used 100 -Saline Lot Number [id number] -Bleeding Controlled with Pressure -Offloading No -Treatment Response Procedure Tolerated Well Pain Scale: 0-10 Numeric Is Patient Pain Free? Yes Wound debrided: lateral ankle ulcer Laterality: Right Type of Debridement: Excisional debridement Anesthesia Used: 5% Lidocaine Gel Depth: Down to and including healthy tissue, in the subcutaneous layer Percentage of wound debrided: 100 Instrument Used: 7mm curette Tissue Removed: subcutaneous tissues and slough Severity: Fat Layer Exposed Amount of bleeding with debridement: Mild Bleeding Controlled with: Pressure, Compression and gauze Patient tolerated procedure well - Additional Wound Wound debrided: lateral leg Laterality: Left Type of Debridement: Excisional debridement Anesthesia Used: 5% Lidocaine Gel Depth: Down to and including healthy tissue, in the subcutaneous layer Percentage of wound debrided: 100 Instrument Used: 7mm curette Tissue Removed: Subcutaneous tissue and slough Severity: Fat Layer Exposed Amount of bleeding with debridement: Mild Bleeding Controlled with: Compression and gauze Patient tolerated procedure: Patient tolerated procedure well - Additional Wound Wound debrided: heal Laterality: Left Type of Debridement: Excisional debridement Anesthesia Used: 5% Lidocaine Gel Depth: Down to and including healthy tissue, in the subcutaneous layer Percentage of wound debrided: 100 Instrument Used: 7mm curette Tissue Removed: Subcutaneous tissue and slough Severity: Fat Layer Exposed Amount of bleeding with debridement: Mild Bleeding Controlled with: Pressure, Compression and gauze Assessment/Plan Assessment: 1. Ulcer of right lateral ankle. 2. Ulcer of left lateral leg. 3. Ulcer of left heel (plantar to posterior aspect). 4. DM type 2. 5. Wheelchair bound due to paraplegia Plan: 34 year old male was evaluated in the wound healing center today. A subcutaneous debridement was performed. Ordered Santyl but it was too expensive. Will stop silver dressing changes. He was approved for Apligraft which #1 was placed with a wound veil and used 100% of the product on all three of his ulcers. Will apply Tubigrip for compression. Encouraged elevation of extremities to help with edema management. Encouraged increase in protein intake. Follow up in one week. Code Visit [id number]: [id number] Skin sub graft trnk/arm/leg Add On Codes: 21968 Skin sub graft t/a/l add-on - x1
[2019-06-07 15:42] VITALS: BP 152/116; PULSE 114; RESP 16; TEMP 36.4; BMI 44.7
--- NOTE | 2019-06-07 16:43 | PCM.WC.PN ---
(1) Ulcer of left lower extremity with fat layer exposed Status: Chronic Code(s): L97.922 - Non-pressure chronic ulcer of unspecified part of left lower leg with fat layer exposed (2) Chronic ulcer of left heel Status: Chronic Code(s): L97.429 - Non-pressure chronic ulcer of left heel and midfoot with unspecified severity (3) Ulcer of right lower extremity with fat layer exposed Status: Chronic Code(s): L97.912 - Non-pressure chronic ulcer of unspecified part of right lower leg with fat layer exposed (4) Type 2 diabetes mellitus Status: Chronic Code(s): E11.9 - Type 2 diabetes mellitus without complications (5) Paralysis Status: Chronic Code(s): G83.9 - Paralytic syndrome, unspecified (6) 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 History of Wound: Patient is 34 year old male who is wheel chair bound, paraplegic. He is independent in his ADL's. He has a history of Type 2 DM, last A1C 7.8 last week. He has obtained these ulcers over the past 6-9 months by trauma. He states he bumps his legs/feet/ankles and the trauma causes an ulcer. He has been seen at both our wound healing center and [facility]'s in [place] in the past for previous uclers. The only wound care he has been doing is washing them with Dakins solution that he had left over from [facility]. He was approved for Apligraft which #1 which was placed 2 weeks ago. Since did not come to his appointment last week, there is not an Apligraft to apply this week. Will use silver dressing on his ulcers this week. Will use a tubigrip for compression. Today he denies fevers. States his appetite is good, encourage increase in protein intake. He has been having a lot of issues with diarrhea for the past several months. He is scheduled to see GI for this. Progress of Wound: Improved - Physical Exam Vital Signs Temp Pulse Resp BP 97.5 F L 114 H 16 152/116 H 06/07/19 15:42 06/07/19 15:42 06/07/19 15:42 06/07/19 15:42 General: Alert, Oriented x3, Cooperative HEENT: Atraumatic Oral: Moist Mucosa Lungs: Normal air movement Cardiovascular: Regular rate Abdomen: Obese Extremities: Capillary Refill Less than 3 Seconds, Edema, Peripheral Pulses Normal Skin: Ulcer/ Wound - right lateral ankle ulcer, left posterior/lateral leg and left heel ulcer Wound Measurements and Assessment WC - Nurse 1 - General Ulcer Measurement Start: 05/24/19 13:31 Freq: Status: Active Protocol: Activity Type Activity Date Activity User E-Sign Co-Sign Detail Recorded Client Recorded Date Recorded By Document 06/07/19 15:42 [facility] [id number] 06/07/19 16:00 [facility] 06/07/19 15:42 Wound Center Nurse 1 [Ulcer Assessment] #6- R LAT FOOT -Combined with other wound No -Current Size (cm) - Length 2 -Current Size (cm) - Width 1.7 -Current Size (cm) - Depth 0.2 -Total Square Cm 3.4 -Photo Taken No -Epithelialization None Present -Tunneling No -Undermining/Tunneling No -Circular Undermining No -Exudate Amt Medium -Exudate Type Serosanguineous -Wound Margin Distinct, Outline Attached -Granulation Amt Medium (34-66%) -Granulation Quality Pale,Red -Slough/Fibrin Yes -Necrosis Amt Small (1-33%) -Necrotic Tissue Type Adherent Slough -Texture (Temi-wound Skin Appearance) Assessed,Callus ,Scarring -Moisture (Temi-wound Skin Appearance Assessed,Dry/ ) Scaly -Color (Temi-wound Skin Appearance) Assessed -Temperature (Temi-wound Skin No Abnormality Appearance) (Pt Warm) -Tenderness on Palpation (Temi-wound No Skin Appearance) -Ulcer Cleansing Rinsed/ Irrigated with Saline -Foul Odor after Cleansing No #5- L HEEL PLANTAR cluster -Combined with other wound No -Current Size (cm) - Length 2.7 -Current Size (cm) - Width 2.5 -Current Size (cm) - Depth 0.3 -Total Square Cm 6.75 -Photo Taken No -Epithelialization Small 1-33% -Tunneling No -Undermining/Tunneling No -Circular Undermining No -Exudate Amt Medium -Exudate Type Serosanguineous -Wound Margin Distinct, Outline Attached -Granulation Amt Large (67-100%) -Granulation Quality Pale,Red -Slough/Fibrin Yes -Necrosis Amt Small (1-33%) -Necrotic Tissue Type Adherent Slough -Texture (Temi-wound Skin Appearance) Assessed,Callus ,Scarring -Moisture (Temi-wound Skin Appearance Assessed,Dry/ ) Scaly -Color (Temi-wound Skin Appearance) Assessed -Temperature (Temi-wound Skin No Abnormality Appearance) (Pt Warm) -Tenderness on Palpation (Temi-wound No Skin Appearance) -Ulcer Cleansing Rinsed/ Irrigated with Saline -Foul Odor after Cleansing No #3- L LAT LE -Combined with other wound No -Current Size (cm) - Length 1.3 -Current Size (cm) - Width 1 -Current Size (cm) - Depth 0.3 -Total Square Cm 1.3 -Photo Taken No -Epithelialization Small 1-33% -Tunneling No -Undermining/Tunneling No -Circular Undermining No -Exudate Amt Medium -Exudate Type Serosanguineous -Wound Margin Distinct, Outline Attached -Granulation Amt Medium (34-66%) -Granulation Quality Pale,Red -Slough/Fibrin Yes -Necrosis Amt Small (1-33%) -Necrotic Tissue Type Adherent Slough -Texture (Temi-wound Skin Appearance) Callus,Scarring -Moisture (Temi-wound Skin Appearance Assessed,Dry/ ) Scaly -Color (Temi-wound Skin Appearance) Assessed -Temperature (Temi-wound Skin No Abnormality Appearance) (Pt Warm) -Tenderness on Palpation (Temi-wound No Skin Appearance) -Ulcer Cleansing Rinsed/ Irrigated with Saline -Foul Odor after Cleansing No WC - Nurse 2 - General Ulcer CM Notes Start: 05/24/19 13:31 Freq: Status: Active Protocol: Activity Type Activity Date Activity User E-Sign Co-Sign Detail Recorded Client Recorded Date Recorded By Document 06/07/19 16:27 CHARLI [id number] 06/07/19 16:29 CHARLI 06/07/19 16:27 Wound Center Nurse 2 [Procedure/Treatment] #6- R LAT FOOT -Time 16:28 -Correct Patient Yes -Correct Side, Site, Position Yes -Correct Procedure Yes -Procedure Performed Yes -Type of Procedure Debridement -Clinical Debridement Subcutaneous -Post Debridement Size (cm) - Length 2 -Post Debridement Size (cm) - Width 2 -Post Debridement Size (cm) - Depth 0.4 -Total Square Cm 4 -Wound/Ulcer Outcome Not Healed -Ulcer Cleansing Rinsed/ Irrigated with Saline -Foul Odor after Cleansing No -Bioengineered Tissue No -Bleeding Controlled with Pressure -Offloading No -Treatment Response Procedure Tolerated Well #5- L HEEL PLANTAR cluster -Time 16:28 -Correct Patient Yes -Correct Side, Site, Position Yes -Correct Procedure Yes -Procedure Performed Yes -Type of Procedure Debridement -Clinical Debridement Subcutaneous -Post Debridement Size (cm) - Length 5.6 -Post Debridement Size (cm) - Width 2.3 -Post Debridement Size (cm) - Depth 0.5 -Total Square Cm 12.88 -Wound/Ulcer Outcome Not Healed -Ulcer Cleansing Rinsed/ Irrigated with Saline -Foul Odor after Cleansing No -Bioengineered Tissue No -Bleeding Controlled with Pressure -Offloading No -Treatment Response Procedure Tolerated Well #3- L LAT LE -Time 16:29 -Correct Patient Yes -Correct Side, Site, Position Yes -Correct Procedure Yes -Procedure Performed Yes -Type of Procedure Debridement -Clinical Debridement Subcutaneous -Post Debridement Size (cm) - Length 1.9 -Post Debridement Size (cm) - Width 1.5 -Post Debridement Size (cm) - Depth 0.4 -Total Square Cm 2.85 -Wound/Ulcer Outcome Not Healed -Ulcer Cleansing Rinsed/ Irrigated with Saline -Foul Odor after Cleansing No -Bioengineered Tissue No -Bleeding Controlled with Pressure -Offloading No -Treatment Response Procedure Tolerated Well [See Physician Procedure note for Specifics] Pain Scale: 0-10 Numeric [Pain] -Is Patient Pain Free? Yes Musculoskeletal: No Tenderness to Palpation of Joints or Extremities Neurological: Cranial nerves II-XII grossly intact Psych/Mental Status: Normal Affect, Appropriate Debridement Note Post-Debridement Measurements/Treatment WC - Nurse 2 - General Ulcer CM Notes Start: 05/24/19 13:31 Freq: Status: Active Protocol: Activity Type Activity Date Activity User E-Sign Co-Sign Detail Recorded Client Recorded Date Recorded By Document 05/24/19 13:49 [id number] 05/24/19 14:08 Document 06/07/19 16:27 JF [id number] 06/07/19 16:29 05/24/19 06/07/19 13:49 16:27 Wound Center Nurse 2 #6- R LAT FOOT -Time 13:52 16:28 -Correct Patient Yes Yes -Correct Side, Site, Position Yes Yes -Correct Procedure Yes Yes -Procedure Performed Yes Yes -Type of Procedure Debridement Debridement -Clinical Debridement Subcutaneous Subcutaneous -Post Debridement Size (cm) - Length 2.5 2 -Post Debridement Size (cm) - Width 2.5 2 -Post Debridement Size (cm) - Depth 0.3 0.4 -Total Square Cm 6.25 4 -Wound/Ulcer Outcome Not Healed Not Healed -Ulcer Cleansing Rinsed/ Rinsed/ Irrigated with Irrigated with Saline Saline -Foul Odor after Cleansing No No -Bioengineered Tissue Yes No -Type of bioengineered Tissue Apligraf -Expiration Date 05/26/19 -Product Lot Number [id number] -Percent Used 100 -Saline Lot Number [id number] -Bleeding Controlled with Pressure Pressure -Offloading No No -Treatment Response Procedure Procedure Tolerated Well Tolerated Well #5- L HEEL PLANTAR cluster -Time 13:52 16:28 -Correct Patient Yes Yes -Correct Side, Site, Position Yes Yes -Correct Procedure Yes Yes -Procedure Performed Yes Yes -Type of Procedure Debridement Debridement -Clinical Debridement Subcutaneous Subcutaneous -Post Debridement Size (cm) - Length 5.7 5.6 -Post Debridement Size (cm) - Width 2.3 2.3 -Post Debridement Size (cm) - Depth 0.5 0.5 -Total Square Cm 13.11 12.88 -Wound/Ulcer Outcome Not Healed Not Healed -Ulcer Cleansing Rinsed/ Rinsed/ Irrigated with Irrigated with Saline Saline -Foul Odor after Cleansing No No -Bioengineered Tissue Yes No -Type of bioengineered Tissue Apligraf -Expiration Date 05/26/19 -Product Lot Number [id number] -Percent Used 100 -Saline Lot Number [id number] -Bleeding Controlled with Pressure Pressure -Offloading No No -Treatment Response Procedure Procedure Tolerated Well Tolerated Well #3- L LAT LE -Time 13:51 16:29 -Correct Patient Yes Yes -Correct Side, Site, Position Yes Yes -Correct Procedure Yes Yes -Procedure Performed Yes Yes -Type of Procedure Debridement Debridement -Clinical Debridement Subcutaneous Subcutaneous -Post Debridement Size (cm) - Length 3.3 1.9 -Post Debridement Size (cm) - Width 1.0 1.5 -Post Debridement Size (cm) - Depth 0.3 0.4 -Total Square Cm 3.30 2.85 -Wound/Ulcer Outcome Not Healed Not Healed -Ulcer Cleansing Rinsed/ Rinsed/ Irrigated with Irrigated with Saline Saline -Foul Odor after Cleansing No No -Bioengineered Tissue Yes No -Type of bioengineered Tissue Apligraf -Expiration Date 05/26/19 -Product Lot Number [id number] -Percent Used 100 -Saline Lot Number [id number] -Bleeding Controlled with Pressure Pressure -Offloading No No -Treatment Response Procedure Procedure Tolerated Well Tolerated Well Pain Scale: 0-10 Numeric Is Patient Pain Free? Yes Yes Wound debrided: lateral ankle ulcer Laterality: Right Type of Debridement: Excisional debridement Anesthesia Used: 5% Lidocaine Gel Depth: Down to and including healthy tissue, in the subcutaneous layer Percentage of wound debrided: 100 Instrument Used: 5mm curette Tissue Removed: subcutaneous tissue and slough Severity: Fat Layer Exposed Amount of bleeding with debridement: Moderate Bleeding Controlled with: Pressure, Compression and gauze Patient tolerated procedure well - Additional Wound Wound debrided: lateral/posterio leg Laterality: Left Type of Debridement: Excisional debridement Anesthesia Used: 5% Lidocaine Gel Depth: Down to and including healthy tissue, in the subcutaneous layer Percentage of wound debrided: 100 Instrument Used: 7mm curette Tissue Removed: Subcutaneous tissue and slough Severity: Fat Layer Exposed Amount of bleeding with debridement: Moderate Bleeding Controlled with: Pressure, Compression and gauze Patient tolerated procedure: Patient tolerated procedure well - Additional Wound Wound debrided: heel Laterality: Left Type of Debridement: Excisional debridement Anesthesia Used: 5% Lidocaine Gel Depth: Down to and including healthy tissue, in the subcutaneous layer Percentage of wound debrided: 100 Instrument Used: 5mm curette Tissue Removed: Subcutaneous tissue and slough Severity: Fat Layer Exposed Amount of bleeding with debridement: Moderate Bleeding Controlled with: Pressure, Compression and gauze Patient tolerated procedure: Patient tolerated procedure well Assessment/Plan Assessment: 1. Ulcer of right lateral ankle. 2. Ulcer of left lateral leg. 3. Ulcer of left heel (plantar to posterior aspect). 4. DM type 2. 5. Wheelchair bound due to paraplegia Plan: 34 year old male was evaluated in the wound healing center today. A subcutaneous debridement was performed. Ordered Santyl but it was too expensive. Will stop silver dressing changes. He was approved for Apligraft which #1 was placed 2 weeks ago. He did not come to his appointment last week, therefore there is not an Apligraft to apply today. Will use silver dressing to the ulcers this week. Will apply Tubigrip for compression. Encouraged elevation of extremities to help with edema management. Encouraged increase in protein intake. Follow up in one week. Code Visit [id number]: [id number] Mylene subq tissue 20 sq cm/<
[2019-06-14 15:06] VITALS: BP 149/99; PULSE 111; RESP 18; TEMP 37.1; BMI 44.7
--- NOTE | 2019-06-14 17:09 | PN.PCM_ITS ---
(1) Ulcer of left lower extremity with fat layer exposed Status: Chronic Code(s): L97.922 - Non-pressure chronic ulcer of unspecified part of left lower leg with fat layer exposed (2) Chronic ulcer of left heel Status: Chronic Code(s): L97.429 - Non-pressure chronic ulcer of left heel and midfoot with unspecified severity (3) Ulcer of right lower extremity with fat layer exposed Status: Chronic Code(s): L97.912 - Non-pressure chronic ulcer of unspecified part of right lower leg with fat layer exposed (4) Type 2 diabetes mellitus Status: Chronic Code(s): E11.9 - Type 2 diabetes mellitus without complications (5) Paralysis Status: Chronic Code(s): G83.9 - Paralytic syndrome, unspecified (6) 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 History of Wound: Patient is 34 year old male who is wheel chair bound, paraplegic. He is independent in his ADL's. He has a history of Type 2 DM, last A1C 7.8 last week. He has obtained these ulcers over the past 6-9 months by trauma. He states he bumps his legs/feet/ankles and the trauma causes an ulcer. He has been seen at both our wound healing center and [facility] in [place] in the past for previous uclers. The only wound care he has been doing is washing them with Dakins solution that he had left over from [facility]. He was approved for Apligraft which #2 was placed today. Will use a tubigrip for compression. Today he denies fevers. States his appetite is good, encourage increase in protein intake. He has been having a lot of issues with diarrhea for the past several months. He is scheduled to see GI for this. Progress of Wound: Improved - Physical Exam Vital Signs Temp Pulse Resp BP 98.7 F 111 H 18 149/99 H 06/14/19 15:06 06/14/19 15:06 06/14/19 15:06 06/14/19 15:06 General: Alert, Oriented x3, Cooperative HEENT: Atraumatic Oral: Moist Mucosa Lungs: Normal air movement Cardiovascular: Regular rate Abdomen: Obese Extremities: Capillary Refill Less than 3 Seconds, Edema Skin: Ulcer/ Wound - right lateral lower leg ulcer, left heel ulcer, left lateral leg ulcer Wound Measurements and Assessment WC - Nurse 1 - General Ulcer Measurement Start: 05/24/19 13:31 Freq: Status: Active Protocol: Activity Type Activity Date Activity User E-Sign Co-Sign Detail Recorded Client Recorded Date Recorded By Document 06/14/19 15:06 DL [id number] 06/14/19 15:25 DL 06/14/19 15:06 Wound Center Nurse 1 [Ulcer Assessment] #6- R LAT FOOT -Current Size (cm) - Length 1.4 -Current Size (cm) - Width 2 -Current Size (cm) - Depth 0.3 -Total Square Cm 2.8 -Photo Taken No -Exudate Amt Small -Exudate Type Serosanguineous -Wound Margin Thickened -Granulation Amt Large (67-100%) -Granulation Quality Red -Necrosis Amt Small (1-33%) -Necrotic Tissue Type Adherent Slough -Structure Exposed N/A -Texture (Temi-wound Skin Appearance) Callus,Scarring -Moisture (Temi-wound Skin Appearance Dry/Scaly ) -Color (Temi-wound Skin Appearance) No Abnormality -Temperature (Temi-wound Skin No Abnormality Appearance) (Pt Warm) -Tenderness on Palpation (Temi-wound No Skin Appearance) -Ulcer Cleansing Rinsed/ Irrigated with Saline -Foul Odor after Cleansing No -Anesthetic Used 5% Lidocaine Gel #5- L HEEL PLANTAR cluster -Current Size (cm) - Length 1.7 -Current Size (cm) - Width 1.8 -Current Size (cm) - Depth 0.3 -Total Square Cm 3.06 -Photo Taken No -Exudate Amt Small -Exudate Type Serosanguineous -Wound Margin Thickened -Granulation Amt Medium (34-66%) -Granulation Quality Red -Necrosis Amt Medium (34-66%) -Necrotic Tissue Type Adherent Slough -Structure Exposed N/A -Texture (Temi-wound Skin Appearance) Callus,Scarring -Moisture (Temi-wound Skin Appearance Dry/Scaly ) -Color (Temi-wound Skin Appearance) No Abnormality -Temperature (Temi-wound Skin No Abnormality Appearance) (Pt Warm) -Tenderness on Palpation (Temi-wound No Skin Appearance) -Ulcer Cleansing Rinsed/ Irrigated with Saline -Foul Odor after Cleansing No -Anesthetic Used 5% Lidocaine Gel #3- L LAT LE -Current Size (cm) - Length 1 -Current Size (cm) - Width 0.4 -Current Size (cm) - Depth 0.1 -Total Square Cm 0.4 -Photo Taken No -Exudate Amt None Present -Wound Margin Thickened -Granulation Amt Large (67-100%) -Granulation Quality [place] -Necrosis Amt Small (1-33%) -Necrotic Tissue Type Adherent Slough -Structure Exposed N/A -Texture (Temi-wound Skin Appearance) Scarring -Moisture (Temi-wound Skin Appearance Dry/Scaly ) -Color (Temi-wound Skin Appearance) No Abnormality -Temperature (Temi-wound Skin No Abnormality Appearance) (Pt Warm) -Tenderness on Palpation (Temi-wound No Skin Appearance) -Ulcer Cleansing Rinsed/ Irrigated with Saline -Foul Odor after Cleansing No -Anesthetic Used 5% Lidocaine Gel [Edema Assessment] -Right Calf (cm) 41.6 -Right Ankle (cm) 26 -Left Calf (cm) 39.7 -Left Ankle (cm) 26 WC - Nurse 2 - General Ulcer CM Notes Start: 05/24/19 13:31 Freq: Status: Active Protocol: Activity Type Activity Date Activity User E-Sign Co-Sign Detail Recorded Client Recorded Date Recorded By Document 06/14/19 15:55 [id number] 06/14/19 15:58 06/14/19 15:55 Wound Center Nurse 2 [Procedure/Treatment] #6- R LAT FOOT -Time 15:55 -Correct Patient Yes -Correct Side, Site, Position Yes -Correct Procedure Yes -Procedure Performed Yes -Type of Procedure Debridement -Clinical Debridement Subcutaneous -Post Debridement Size (cm) - Length 2.5 -Post Debridement Size (cm) - Width 2.0 -Post Debridement Size (cm) - Depth 0.3 -Total Square Cm 5.00 -Wound/Ulcer Outcome Not Healed -Ulcer Cleansing Rinsed/ Irrigated with Saline -Foul Odor after Cleansing No -Bioengineered Tissue Yes -Type of bioengineered Tissue Apligraf -Expiration Date 06/22/19 -Product Lot Number [id number] -Percent Used 100 -Saline Lot Number [id number] -Bleeding Controlled with Pressure -Offloading No -Treatment Response Procedure Tolerated Well #5- L HEEL PLANTAR cluster -Time 15:56 -Correct Patient Yes -Correct Side, Site, Position Yes -Correct Procedure Yes -Procedure Performed Yes -Type of Procedure Debridement -Clinical Debridement Subcutaneous -Post Debridement Size (cm) - Length 2.5 -Post Debridement Size (cm) - Width 2.5 -Post Debridement Size (cm) - Depth 0.4 -Total Square Cm 6.25 -Wound/Ulcer Outcome Not Healed -Ulcer Cleansing Rinsed/ Irrigated with Saline -Foul Odor after Cleansing No -Bioengineered Tissue Yes -Type of bioengineered Tissue Apligraf -Expiration Date 06/22/19 -Product Lot Number [id number] -Percent Used 100 -Bleeding Controlled with Pressure -Offloading No -Treatment Response Procedure Tolerated Well #3- L LAT LE -Time 15:57 -Correct Patient Yes -Correct Side, Site, Position Yes -Correct Procedure Yes -Procedure Performed Yes -Type of Procedure Debridement -Clinical Debridement Subcutaneous -Post Debridement Size (cm) - Length 1.5 -Post Debridement Size (cm) - Width 1 -Post Debridement Size (cm) - Depth 0.3 -Total Square Cm 1.5 -Wound/Ulcer Outcome Not Healed -Ulcer Cleansing Rinsed/ Irrigated with Saline -Foul Odor after Cleansing No -Bioengineered Tissue Yes -Type of bioengineered Tissue Apligraf -Expiration Date 06/22/19 -Product Lot Number [id number] -Percent Used 100 -Saline Lot Number [id number] -Bleeding Controlled with Pressure -Offloading No -Treatment Response Procedure Tolerated Well [See Physician Procedure note for Specifics] Pain Scale: 0-10 Numeric [Pain] -Is Patient Pain Free? Yes Musculoskeletal: No Tenderness to Palpation of Joints or Extremities Neurological: Cranial nerves II-XII grossly intact Psych/Mental Status: Normal Affect, Appropriate Debridement Note Post-Debridement Measurements/Treatment WC - Nurse 2 - General Ulcer CM Notes Start: 05/24/19 13:31 Freq: Status: Active Protocol: Activity Type Activity Date Activity User E-Sign Co-Sign Detail Recorded Client Recorded Date Recorded By Document 05/24/19 13:49 [id number] 05/24/19 14:08 Document 06/07/19 16:27 [id number] 06/07/19 16:29 Document 06/14/19 15:55 [id number] 06/14/19 15:58 05/24/19 06/07/19 06/14/19 13:49 16:27 15:55 Wound Center Nurse 2 #6- R LAT FOOT -Time 13:52 16:28 15:55 -Correct Patient Yes Yes Yes -Correct Side, Site, Position Yes Yes Yes -Correct Procedure Yes Yes Yes -Procedure Performed Yes Yes Yes -Type of Procedure Debridement Debridement Debridement -Clinical Debridement Subcutaneous Subcutaneous Subcutaneous -Post Debridement Size (cm) - Length 2.5 2 2.5 -Post Debridement Size (cm) - Width 2.5 2 2.0 -Post Debridement Size (cm) - Depth 0.3 0.4 0.3 -Total Square Cm 6.25 4 5.00 -Wound/Ulcer Outcome Not Healed Not Healed Not Healed -Ulcer Cleansing Rinsed/ Rinsed/ Rinsed/ Irrigated with Irrigated with Irrigated with Saline Saline Saline -Foul Odor after Cleansing No No No -Bioengineered Tissue Yes No Yes -Type of bioengineered Tissue Apligraf Apligraf -Expiration Date 05/26/19 06/22/19 -Product Lot Number [id number] -Percent Used 100 100 -Saline Lot Number [id number] -Bleeding Controlled with Pressure Pressure Pressure -Offloading No No No -Treatment Response Procedure Procedure Procedure Tolerated Well Tolerated Well Tolerated Well #5- L HEEL PLANTAR cluster -Time 13:52 16:28 15:56 -Correct Patient Yes Yes Yes -Correct Side, Site, Position Yes Yes Yes -Correct Procedure Yes Yes Yes -Procedure Performed Yes Yes Yes -Type of Procedure Debridement Debridement Debridement -Clinical Debridement Subcutaneous Subcutaneous Subcutaneous -Post Debridement Size (cm) - Length 5.7 5.6 2.5 -Post Debridement Size (cm) - Width 2.3 2.3 2.5 -Post Debridement Size (cm) - Depth 0.5 0.5 0.4 -Total Square Cm 13.11 12.88 6.25 -Wound/Ulcer Outcome Not Healed Not Healed Not Healed -Ulcer Cleansing Rinsed/ Rinsed/ Rinsed/ Irrigated with Irrigated with Irrigated with Saline Saline Saline -Foul Odor after Cleansing No No No -Bioengineered Tissue Yes No Yes -Type of bioengineered Tissue Apligraf Apligraf -Expiration Date 05/26/19 06/22/19 -Product Lot Number [id number] -Percent Used 100 100 -Saline Lot Number [id number] -Bleeding Controlled with Pressure Pressure Pressure -Offloading No No No -Treatment Response Procedure Procedure Procedure Tolerated Well Tolerated Well Tolerated Well #3- L LAT LE -Time 13:51 16:29 15:57 -Correct Patient Yes Yes Yes -Correct Side, Site, Position Yes Yes Yes -Correct Procedure Yes Yes Yes -Procedure Performed Yes Yes Yes -Type of Procedure Debridement Debridement Debridement -Clinical Debridement Subcutaneous Subcutaneous Subcutaneous -Post Debridement Size (cm) - Length 3.3 1.9 1.5 -Post Debridement Size (cm) - Width 1.0 1.5 1 -Post Debridement Size (cm) - Depth 0.3 0.4 0.3 -Total Square Cm 3.30 2.85 1.5 -Wound/Ulcer Outcome Not Healed Not Healed Not Healed -Ulcer Cleansing Rinsed/ Rinsed/ Rinsed/ Irrigated with Irrigated with Irrigated with Saline Saline Saline -Foul Odor after Cleansing No No No -Bioengineered Tissue Yes No Yes -Type of bioengineered Tissue Apligraf Apligraf -Expiration Date 05/26/19 06/22/19 -Product Lot Number [id number] -Percent Used 100 100 -Saline Lot Number [id number] -Bleeding Controlled with Pressure Pressure Pressure -Offloading No No No -Treatment Response Procedure Procedure Procedure Tolerated Well Tolerated Well Tolerated Well Pain Scale: 0-10 Numeric Is Patient Pain Free? Yes Yes Yes Wound debrided: lateral leg ulcer Laterality: Right Type of Debridement: Excisional debridement Anesthesia Used: 5% Lidocaine Gel Depth: Down to and including healthy tissue, in the subcutaneous layer Percentage of wound debrided: 100 Instrument Used: 5mm curette Tissue Removed: subcutaneous tissue and slough Severity: Fat Layer Exposed Amount of bleeding with debridement: Mild Bleeding Controlled with: Pressure Patient tolerated procedure well - Additional Wound Wound debrided: heel ulcer Laterality: Left Type of Debridement: Excisional debridement Anesthesia Used: 5% Lidocaine Gel Depth: Down to and including healthy tissue, in the subcutaneous layer Percentage of wound debrided: 100 Instrument Used: 5mm curette Tissue Removed: Subcutaneous tissue and slough Severity: Fat Layer Exposed Amount of bleeding with debridement: Mild Bleeding Controlled with: Pressure Patient tolerated procedure: Patient tolerated procedure well - Additional Wound Wound debrided: lateral leg ulcer Laterality: Left Type of Debridement: Excisional debridement Anesthesia Used: 5% Lidocaine Gel Depth: Down to and including healthy tissue, in the subcutaneous layer Percentage of wound debrided: 100 Instrument Used: 5mm curette Tissue Removed: Subcutaneous tissue and slough Severity: Fat Layer Exposed Amount of bleeding with debridement: Mild Bleeding Controlled with: Pressure Patient tolerated procedure: Patient tolerated procedure well Assessment/Plan Assessment: 1. Ulcer of right lateral ankle. 2. Ulcer of left lateral leg. 3. Ulcer of left heel (plantar to posterior aspect). 4. DM type 2. 5. Wheel chair bound due to paraplegia Plan: 34 year old male was evaluated in the wound healing center today. A subcutaneous debridement was performed. Ordered Santyl but it was too expensive. Will stop silver dressing changes. He was approved for Apligraft which # was placed today. 100 % of the product was used. Will apply Tubigrip for compression. Encouraged elevation of extremities to help with edema management. Encouraged increase in protein intake. Follow up in one week. Code Visit [id number]: [id number] Skin sub graft trnk/arm/leg Multi Select Codes - Integumentary Integumentary CPT Codes: 14371 Skin sub graft face/nk/hf/g
== END 2019-06-18 23:59 ==
LOC: WC 14:30
PROVIDERS: Family Provider Internal Medicine; PCP Internal Medicine; Referring Provider Nurse Practitioner Family; Visit Provider Nurse Practitioner Family
DX: E11.621 Type 2 diabetes mellitus with foot ulcer (principal); L97.422 Non-pressure chronic ulcer of left heel and midfoot with fat layer exposed; E11.622 Type 2 diabetes mellitus with other skin ulcer; L97.312 Non-pressure chronic ulcer of right ankle with fat layer exposed; G82.20 Paraplegia, unspecified; L97.822 Non-pressure chronic ulcer of other part of left lower leg with fat layer exposed; Z99.3 Dependence on wheelchair
CPT/HCPCS: 11042; 15271; 15272; 15275; Q4101

== ENCOUNTER 2019-07-11 13:45 | Outpatient (RCR) | payer MEDICARE, OTHER, SELFPAY ==
[2019-06-19 01:01] VITALS: BP 149/99; PULSE 111; RESP 18; TEMP 37.1
[2019-07-05 13:16] VITALS: BP 152/69; PULSE 103; RESP 16; TEMP 36.3; BMI 44.7
--- NOTE | 2019-07-05 16:19 | PCM.WC.PN ---
(1) Ulcer of left lower extremity with fat layer exposed Status: Chronic Current Visit: Yes Code(s): L97.922 - Non-pressure chronic ulcer of unspecified part of left lower leg with fat layer exposed (2) Chronic ulcer of left heel Status: Chronic Current Visit: Yes Code(s): L97.429 - Non-pressure chronic ulcer of left heel and midfoot with unspecified severity (3) Ulcer of right lower extremity with fat layer exposed Status: Chronic Current Visit: Yes Code(s): L97.912 - Non-pressure chronic ulcer of unspecified part of right lower leg with fat layer exposed (4) Type 2 diabetes mellitus Status: Chronic Current Visit: Yes Code(s): E11.9 - Type 2 diabetes mellitus without complications (5) 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 History of Wound: Patient is 34 year old male who is wheel chair bound, paraplegic. He is independent in his ADL's. He has a history of Type 2 DM, last A1C 7.8 last week. He has obtained these ulcers over the past 6-9 months by trauma. He states he bumps his legs/feet/ankles and the trauma causes an ulcer. He has been seen at both our wound healing center and [facility]'s in [place] in the past for previous uclers. The only wound care he has been doing is washing them with Dakins solution that he had left over from [facility]. He was approved for Apligraft which #2 was placed a couple weeks ago. We will use silver today to the ulcers and will plan on another Apligraf application for next week. Will use a tubigrip for compression. Today he denies fevers. States his appetite is good, encourage increase in protein intake. He has been having a lot of issues with diarrhea for the past several months. He is scheduled to see GI for this. Progress of Wound: Improved - Physical Exam Vital Signs Temp Pulse Resp BP 97.3 F L 103 H 16 152/69 H 07/05/19 13:16 07/05/19 13:16 07/05/19 13:16 07/05/19 13:16 General: Alert, Oriented x3, Cooperative HEENT: Atraumatic Oral: Moist Mucosa Lungs: Normal air movement Cardiovascular: Regular rate Abdomen: Obese Extremities: Capillary Refill Less than 3 Seconds, Diminished Peripheral Pulses, Edema Skin: Ulcer/ Wound - Left lateral leg ulcer, left heel ulcer, right lateral ankle ulcer Wound Measurements and Assessment WC - Nurse 1 - General Ulcer Measurement Start: 07/05/19 13:15 Freq: Status: Active Protocol: Activity Type Activity Date Activity User E-Sign Co-Sign Detail Recorded Client Recorded Date Recorded By Document 07/05/19 13:16 [facility] [id number] 07/05/19 13:28 [facility] 07/05/19 13:16 Wound Center Nurse 1 [Ulcer Assessment] #6- R LAT FOOT -Combined with other wound No -Current Size (cm) - Length 2.1 -Current Size (cm) - Width 1.6 -Current Size (cm) - Depth 0.5 -Total Square Cm 3.36 -Photo Taken No -Epithelialization Small 1-33% -Tunneling No -Undermining/Tunneling No -Circular Undermining No -Exudate Amt Small -Exudate Type Serosanguineous -Wound Margin Distinct, Outline Attached -Granulation Amt Large (67-100%) -Granulation Quality Pale,Red -Slough/Fibrin Yes -Necrosis Amt Small (1-33%) -Necrotic Tissue Type Adherent Slough -Texture (Temi-wound Skin Appearance) Assessed,Callus ,Localized Edema,Scarring -Moisture (Temi-wound Skin Appearance Assessed,Dry/ ) Scaly -Color (Temi-wound Skin Appearance) Assessed -Temperature (Temi-wound Skin No Abnormality Appearance) (Pt Warm) -Tenderness on Palpation (Temi-wound No Skin Appearance) -Ulcer Cleansing Rinsed/ Irrigated with Saline -Foul Odor after Cleansing No #5- L HEEL PLANTAR cluster -Combined with other wound No -Current Size (cm) - Length 2.8 -Current Size (cm) - Width 2.3 -Current Size (cm) - Depth 0.3 -Total Square Cm 6.44 -Photo Taken No -Epithelialization Small 1-33% -Tunneling No -Undermining/Tunneling No -Circular Undermining No -Exudate Amt Small -Exudate Type Serosanguineous -Wound Margin Distinct, Outline Attached -Granulation Amt Large (67-100%) -Granulation Quality Pale,Red -Slough/Fibrin Yes -Necrosis Amt Small (1-33%) -Necrotic Tissue Type Adherent Slough -Texture (Temi-wound Skin Appearance) Assessed,Callus ,Localized Edema,Scarring -Moisture (Temi-wound Skin Appearance Assessed,Dry/ ) Scaly -Color (Temi-wound Skin Appearance) Assessed, Erythema -Temperature (Temi-wound Skin No Abnormality Appearance) (Pt Warm) -Tenderness on Palpation (Temi-wound No Skin Appearance) -Ulcer Cleansing Rinsed/ Irrigated with Saline -Foul Odor after Cleansing No #3- L LAT LE -Combined with other wound No -Current Size (cm) - Length 0.1 -Current Size (cm) - Width 0.1 -Current Size (cm) - Depth 0.1 -Total Square Cm 0.01 -Photo Taken No -Epithelialization None Present -Tunneling No -Undermining/Tunneling No -Circular Undermining No -Exudate Amt None Present -Granulation Amt None Present (0 %) -Slough/Fibrin Yes -Necrosis Amt Large (67-100%) -Necrotic Tissue Type Adherent Slough -Texture (Temi-wound Skin Appearance) Assessed, Scarring -Moisture (Temi-wound Skin Appearance Assessed,Dry/ ) Scaly -Color (Temi-wound Skin Appearance) Assessed, Erythema -Temperature (Temi-wound Skin No Abnormality Appearance) (Pt Warm) -Tenderness on Palpation (Temi-wound No Skin Appearance) -Ulcer Cleansing Rinsed/ Irrigated with Saline -Foul Odor after Cleansing No [Edema Assessment] -Lower Limb Edema Present Yes -Right Calf (cm) 42 -Right Ankle (cm) 27.5 -Left Calf (cm) 40.9 -Left Ankle (cm) 27.3 WC - Nurse 2 - General Ulcer CM Notes Start: 07/05/19 13:15 Freq: Status: Active Protocol: Activity Type Activity Date Activity User E-Sign Co-Sign Detail Recorded Client Recorded Date Recorded By Document 07/05/19 13:34 CHARLI [id number] 07/05/19 13:43 CHARLI 07/05/19 13:34 Wound Center Nurse 2 [Procedure/Treatment] #6- R LAT FOOT -Time 13:41 -Correct Patient Yes -Correct Side, Site, Position Yes -Correct Procedure Yes -Procedure Performed Yes -Type of Procedure Debridement -Clinical Debridement Subcutaneous -Post Debridement Size (cm) - Length 2.0 -Post Debridement Size (cm) - Width 1.8 -Post Debridement Size (cm) - Depth 0.3 -Total Square Cm 3.60 -Wound/Ulcer Outcome Not Healed -Ulcer Cleansing Rinsed/ Irrigated with Saline -Foul Odor after Cleansing No -Bioengineered Tissue No -Bleeding Controlled with Pressure -Offloading No -Treatment Response Procedure Tolerated Well #5- L HEEL PLANTAR cluster -Time 13:40 -Correct Patient Yes -Correct Side, Site, Position Yes -Correct Procedure Yes -Procedure Performed Yes -Type of Procedure Debridement -Clinical Debridement Subcutaneous -Post Debridement Size (cm) - Length 2.5 -Post Debridement Size (cm) - Width 2.3 -Post Debridement Size (cm) - Depth 0.4 -Total Square Cm 5.75 -Wound/Ulcer Outcome Not Healed -Ulcer Cleansing Rinsed/ Irrigated with Saline -Foul Odor after Cleansing No -Bioengineered Tissue No -Bleeding Controlled with Pressure -Offloading No -Treatment Response Procedure Tolerated Well #3- L LAT LE -Time 13:35 -Correct Patient Yes -Correct Side, Site, Position Yes -Correct Procedure Yes -Procedure Performed Yes -Type of Procedure Debridement -Clinical Debridement Subcutaneous -Post Debridement Size (cm) - Length 0.7 -Post Debridement Size (cm) - Width 0.5 -Post Debridement Size (cm) - Depth 0.3 -Total Square Cm 0.35 -Wound/Ulcer Outcome Not Healed -Ulcer Cleansing Rinsed/ Irrigated with Saline -Foul Odor after Cleansing No -Bioengineered Tissue No -Bleeding Controlled with Pressure -Offloading No -Treatment Response Procedure Tolerated Well [See Physician Procedure note for Specifics] Pain Scale: 0-10 Numeric [Pain] -Is Patient Pain Free? Yes Musculoskeletal: No Tenderness to Palpation of Joints or Extremities Neurological: Cranial nerves II-XII grossly intact Psych/Mental Status: Normal Affect, Appropriate Debridement Note Post-Debridement Measurements/Treatment WC - Nurse 2 - General Ulcer CM Notes Start: 07/05/19 13:15 Freq: Status: Active Protocol: Activity Type Activity Date Activity User E-Sign Co-Sign Detail Recorded Client Recorded Date Recorded By Document 07/05/19 13:34 CHARLI [id number] 07/05/19 13:43 CHARLI 07/05/19 13:34 Wound Center Nurse 2 #6- R LAT FOOT -Time 13:41 -Correct Patient Yes -Correct Side, Site, Position Yes -Correct Procedure Yes -Procedure Performed Yes -Type of Procedure Debridement -Clinical Debridement Subcutaneous -Post Debridement Size (cm) - Length 2.0 -Post Debridement Size (cm) - Width 1.8 -Post Debridement Size (cm) - Depth 0.3 -Total Square Cm 3.60 -Wound/Ulcer Outcome Not Healed -Ulcer Cleansing Rinsed/ Irrigated with Saline -Foul Odor after Cleansing No -Bioengineered Tissue No -Bleeding Controlled with Pressure -Offloading No -Treatment Response Procedure Tolerated Well #5- L HEEL PLANTAR cluster -Time 13:40 -Correct Patient Yes -Correct Side, Site, Position Yes -Correct Procedure Yes -Procedure Performed Yes -Type of Procedure Debridement -Clinical Debridement Subcutaneous -Post Debridement Size (cm) - Length 2.5 -Post Debridement Size (cm) - Width 2.3 -Post Debridement Size (cm) - Depth 0.4 -Total Square Cm 5.75 -Wound/Ulcer Outcome Not Healed -Ulcer Cleansing Rinsed/ Irrigated with Saline -Foul Odor after Cleansing No -Bioengineered Tissue No -Bleeding Controlled with Pressure -Offloading No -Treatment Response Procedure Tolerated Well #3- L LAT LE -Time 13:35 -Correct Patient Yes -Correct Side, Site, Position Yes -Correct Procedure Yes -Procedure Performed Yes -Type of Procedure Debridement -Clinical Debridement Subcutaneous -Post Debridement Size (cm) - Length 0.7 -Post Debridement Size (cm) - Width 0.5 -Post Debridement Size (cm) - Depth 0.3 -Total Square Cm 0.35 -Wound/Ulcer Outcome Not Healed -Ulcer Cleansing Rinsed/ Irrigated with Saline -Foul Odor after Cleansing No -Bioengineered Tissue No -Bleeding Controlled with Pressure -Offloading No -Treatment Response Procedure Tolerated Well Pain Scale: 0-10 Numeric Is Patient Pain Free? Yes Wound debrided: Lateral ankle ulcer Laterality: Right Type of Debridement: Excisional debridement Anesthesia Used: 5% Lidocaine Gel Depth: Down to and including healthy tissue, in the subcutaneous layer Percentage of wound debrided: 100 Instrument Used: 5mm curette Tissue Removed: Subcutaneous tissue and slough Severity: Fat Layer Exposed Amount of bleeding with debridement: Mild Bleeding Controlled with: Pressure Patient tolerated procedure well - Additional Wound Wound debrided: Lateral lower leg ulcer Laterality: Left Type of Debridement: Excisional debridement Anesthesia Used: 5% Lidocaine Gel Depth: Down to and including healthy tissue, in the subcutaneous layer Percentage of wound debrided: 100 Instrument Used: 7mm curette Tissue Removed: Subcutaneous tissue and slough Severity: Fat Layer Exposed Amount of bleeding with debridement: Mild Bleeding Controlled with: Compression and gauze Patient tolerated procedure: Patient tolerated procedure well - Additional Wound Wound debrided: Left heel ulcer Laterality: Left Type of Debridement: Excisional debridement Anesthesia Used: 4% Lidocaine Solution Depth: Down to and including healthy tissue, in the subcutaneous layer Percentage of wound debrided: 100 Instrument Used: 5mm curette Tissue Removed: Subcutaneous tissue and slough Severity: Fat Layer Exposed Amount of bleeding with debridement: Moderate Bleeding Controlled with: Pressure, Compression and gauze Patient tolerated procedure: Patient tolerated procedure well Assessment/Plan Active Problems (Last Reviewed 06/08/19 @ 13:17 by Diana Kovacs) Left leg cellulitis (Chronic) Ulcer of left lower extremity with fat layer exposed (Chronic) Chronic ulcer of left heel (Chronic) Ulcer of right lower extremity with fat layer exposed (Chronic) Type 2 diabetes mellitus (Chronic) Paralysis (Chronic) 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 Ulcer of right lateral ankle. 2. Ulcer of left lateral leg. 3. Ulcer of left heel (plantar to posterior aspect). 4. DM type 2. 5. Wheelchair bound due to paraplegia Plan: 34 year old male was evaluated in the wound healing center today. A subcutaneous debridement was performed. Ordered Santyl but it was too expensive. Will stop silver dressing changes. He was approved for Apligraft which # 2 was placed several weeks ago. Patient has not been back in. We will apply silver dressing to ulcers daily. Will apply another Apligraf next week. Will apply Tubigrip for compression. Encouraged elevation of extremities to help with edema management. Encouraged increase in protein intake. Follow up in one week. Code Visit [id number]: 23968 Mylene subq tissue 20 sq cm/<
[2019-07-11 14:03] VITALS: BP 164/86; PULSE 121; RESP 18; TEMP 36.3; BMI 44.7
--- NOTE | 2019-07-11 15:57 | PN.PCM_ITS ---
(1) Ulcer of left lower extremity with fat layer exposed Status: Chronic Code(s): L97.922 - Non-pressure chronic ulcer of unspecified part of left lower leg with fat layer exposed (2) Chronic ulcer of left heel Status: Chronic Code(s): L97.429 - Non-pressure chronic ulcer of left heel and midfoot with unspecified severity (3) Ulcer of right lower extremity with fat layer exposed Status: Chronic Code(s): L97.912 - Non-pressure chronic ulcer of unspecified part of right lower leg with fat layer exposed (4) Type 2 diabetes mellitus Status: Chronic Code(s): E11.9 - Type 2 diabetes mellitus without complications (5) 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 History of Wound: Patient is 34 year old male who is wheel chair bound, paraplegic. He is independent in his ADL's. He has a history of Type 2 DM, last A1C 7.8 last week. He has obtained these ulcers over the past 6-9 months by trauma. He states he bumps his legs/feet/ankles and the trauma causes an ulcer. He has been seen at both our wound healing center and [facility]'s in [place] in the past for previous uclers. The only wound care he had been doing is washing them with Dakins solution that he had left over from [facility]. He was approved for Apligraft which #2 was placed a couple weeks ago. He came in today for the third placement of apligraft but there was not one available. We will use silver today to the ulcers and will plan on another Apligraf application for next week. Will use a tubigrip for compression. Today he denies fevers. States his appetite is good, encourage increase in protein intake. He has been having a lot of issues with diarrhea for the past several months. He is scheduled to see GI for this after the first of the year. Today denies any fever. States appetite is good. Progress of Wound: Stable. - Physical Exam Vital Signs Temp Pulse Resp BP 97.4 F L 121 H 18 164/86 H 07/11/19 14:03 07/11/19 14:03 07/11/19 14:03 07/11/19 14:03 General: Alert, Oriented x3, Cooperative HEENT: Atraumatic Oral: Moist Mucosa Lungs: Normal air movement Cardiovascular: Regular rate Abdomen: Soft, Obese Extremities: Capillary Refill Less than 3 Seconds Skin: Ulcer/ Wound - right lateral ankle ulcer, left heel ulcer and left lateral distal lower leg ulcer Wound Measurements and Assessment WC - Nurse 1 - General Ulcer Measurement Start: 07/05/19 13:15 Freq: Status: Active Protocol: Activity Type Activity Date Activity User E-Sign Co-Sign Detail Recorded Client Recorded Date Recorded By Document 07/11/19 14:03 [id number] 07/11/19 14:13 RB 07/11/19 14:03 Wound Center Nurse 1 [Ulcer Assessment] #6- R LAT FOOT -Combined with other wound No -Current Size (cm) - Length 1.5 -Current Size (cm) - Width 1.5 -Current Size (cm) - Depth 0.2 -Total Square Cm 2.25 -Tunneling No -Undermining/Tunneling No -Circular Undermining No -Exudate Amt Small -Exudate Type Serosanguineous -Wound Margin Flat & Intact -Granulation Amt Medium (34-66%) -Granulation Quality [place] -Slough/Fibrin Yes -Necrosis Amt Medium (34-66%) -Necrotic Tissue Type Adherent Slough -Structure Exposed N/A -Texture (Temi-wound Skin Appearance) Assessed -Moisture (Temi-wound Skin Appearance Assessed, ) Maceration -Color (Temi-wound Skin Appearance) Assessed -Temperature (Temi-wound Skin No Abnormality Appearance) (Pt Warm) -Tenderness on Palpation (Temi-wound No Skin Appearance) -Ulcer Cleansing Wound Cleanser -Foul Odor after Cleansing No -Anesthetic Used 4% Lidocaine Solution #5- L HEEL PLANTAR cluster -Combined with other wound No -Current Size (cm) - Length 2.2 -Current Size (cm) - Width 1.5 -Current Size (cm) - Depth 0.2 -Total Square Cm 3.30 -Tunneling No -Undermining/Tunneling No -Circular Undermining No -Exudate Amt Small -Exudate Type Serosanguineous -Wound Margin Flat & Intact -Granulation Amt Medium (34-66%) -Granulation Quality [place] -Slough/Fibrin Yes -Necrosis Amt Small (1-33%) -Necrotic Tissue Type Adherent Slough -Structure Exposed N/A -Texture (Temi-wound Skin Appearance) Assessed -Moisture (Temi-wound Skin Appearance Maceration ) -Color (Temi-wound Skin Appearance) Assessed -Temperature (Temi-wound Skin No Abnormality Appearance) (Pt Warm) -Tenderness on Palpation (Temi-wound No Skin Appearance) -Ulcer Cleansing Wound Cleanser -Foul Odor after Cleansing No -Anesthetic Used 4% Lidocaine Solution #3- L LAT LE -Combined with other wound No -Current Size (cm) - Length 1 -Current Size (cm) - Width 1 -Current Size (cm) - Depth 0.2 -Total Square Cm 1 -Tunneling No -Undermining/Tunneling No -Circular Undermining No -Exudate Amt Small -Exudate Type Serosanguineous -Wound Margin Flat & Intact -Granulation Amt Medium (34-66%) -Granulation Quality [place] -Slough/Fibrin Yes -Necrosis Amt Small (1-33%) -Necrotic Tissue Type Adherent Slough -Structure Exposed N/A -Texture (Temi-wound Skin Appearance) Assessed -Moisture (Temi-wound Skin Appearance Assessed ) -Color (Temi-wound Skin Appearance) Assessed -Temperature (Temi-wound Skin No Abnormality Appearance) (Pt Warm) -Tenderness on Palpation (Temi-wound No Skin Appearance) -Ulcer Cleansing Wound Cleanser -Foul Odor after Cleansing No -Anesthetic Used 4% Lidocaine Solution WC - Nurse 2 - General Ulcer CM Notes Start: 07/05/19 13:15 Freq: Status: Active Protocol: Activity Type Activity Date Activity User E-Sign Co-Sign Detail Recorded Client Recorded Date Recorded By Document 07/11/19 14:34 [id number] 07/11/19 14:37 CHARLI 07/11/19 14:34 Wound Center Nurse 2 [Procedure/Treatment] #6- R LAT FOOT -Time 14:34 -Correct Patient Yes -Correct Side, Site, Position Yes -Correct Procedure Yes -Procedure Performed Yes -Type of Procedure Debridement -Clinical Debridement Subcutaneous -Post Debridement Size (cm) - Length 2.5 -Post Debridement Size (cm) - Width 0.5 -Post Debridement Size (cm) - Depth 0.4 -Total Square Cm 1.25 -Wound/Ulcer Outcome Not Healed -Ulcer Cleansing Rinsed/ Irrigated with Saline -Foul Odor after Cleansing No -Bioengineered Tissue No -Bleeding Controlled with NA -Offloading No -Treatment Response Procedure Tolerated Well #5- L HEEL PLANTAR cluster -Time 14:36 -Correct Patient Yes -Correct Side, Site, Position Yes -Correct Procedure Yes -Procedure Performed Yes -Type of Procedure Debridement -Clinical Debridement Subcutaneous -Post Debridement Size (cm) - Length 2.5 -Post Debridement Size (cm) - Width 1.8 -Post Debridement Size (cm) - Depth 0.3 -Total Square Cm 4.50 -Wound/Ulcer Outcome Not Healed -Ulcer Cleansing Rinsed/ Irrigated with Saline -Foul Odor after Cleansing No -Bioengineered Tissue No -Bleeding Controlled with Pressure -Offloading No -Treatment Response Procedure Tolerated Well #3- L LAT LE -Time 14:36 -Correct Patient Yes -Correct Side, Site, Position Yes -Correct Procedure Yes -Procedure Performed Yes -Type of Procedure Debridement -Clinical Debridement Subcutaneous -Post Debridement Size (cm) - Length 1.2 -Post Debridement Size (cm) - Width 1.0 -Post Debridement Size (cm) - Depth 0.3 -Total Square Cm 1.20 -Wound/Ulcer Outcome Not Healed -Ulcer Cleansing Rinsed/ Irrigated with Saline -Foul Odor after Cleansing No -Bioengineered Tissue No -Bleeding Controlled with Pressure -Offloading No -Treatment Response Procedure Tolerated Well [See Physician Procedure note for Specifics] Pain Scale: 0-10 Numeric [Pain] -Is Patient Pain Free? Yes Musculoskeletal: No Tenderness to Palpation of Joints or Extremities Neurological: Cranial nerves II-XII grossly intact Psych/Mental Status: Normal Affect, Appropriate Debridement Note Post-Debridement Measurements/Treatment WC - Nurse 2 - General Ulcer CM Notes Start: 07/05/19 13:15 Freq: Status: Active Protocol: Activity Type Activity Date Activity User E-Sign Co-Sign Detail Recorded Client Recorded Date Recorded By Document 07/05/19 13:34 [id number] 07/05/19 13:43 Document 07/11/19 14:34 [id number] 07/11/19 14:37 07/05/19 07/11/19 13:34 14:34 Wound Center Nurse 2 #6- R LAT FOOT -Time 13:41 14:34 -Correct Patient Yes Yes -Correct Side, Site, Position Yes Yes -Correct Procedure Yes Yes -Procedure Performed Yes Yes -Type of Procedure Debridement Debridement -Clinical Debridement Subcutaneous Subcutaneous -Post Debridement Size (cm) - Length 2.0 2.5 -Post Debridement Size (cm) - Width 1.8 0.5 -Post Debridement Size (cm) - Depth 0.3 0.4 -Total Square Cm 3.60 1.25 -Wound/Ulcer Outcome Not Healed Not Healed -Ulcer Cleansing Rinsed/ Rinsed/ Irrigated with Irrigated with Saline Saline -Foul Odor after Cleansing No No -Bioengineered Tissue No No -Bleeding Controlled with Pressure NA -Offloading No No -Treatment Response Procedure Procedure Tolerated Well Tolerated Well #5- L HEEL PLANTAR cluster -Time 13:40 14:36 -Correct Patient Yes Yes -Correct Side, Site, Position Yes Yes -Correct Procedure Yes Yes -Procedure Performed Yes Yes -Type of Procedure Debridement Debridement -Clinical Debridement Subcutaneous Subcutaneous -Post Debridement Size (cm) - Length 2.5 2.5 -Post Debridement Size (cm) - Width 2.3 1.8 -Post Debridement Size (cm) - Depth 0.4 0.3 -Total Square Cm 5.75 4.50 -Wound/Ulcer Outcome Not Healed Not Healed -Ulcer Cleansing Rinsed/ Rinsed/ Irrigated with Irrigated with Saline Saline -Foul Odor after Cleansing No No -Bioengineered Tissue No No -Bleeding Controlled with Pressure Pressure -Offloading No No -Treatment Response Procedure Procedure Tolerated Well Tolerated Well #3- L LAT LE -Time 13:35 14:36 -Correct Patient Yes Yes -Correct Side, Site, Position Yes Yes -Correct Procedure Yes Yes -Procedure Performed Yes Yes -Type of Procedure Debridement Debridement -Clinical Debridement Subcutaneous Subcutaneous -Post Debridement Size (cm) - Length 0.7 1.2 -Post Debridement Size (cm) - Width 0.5 1.0 -Post Debridement Size (cm) - Depth 0.3 0.3 -Total Square Cm 0.35 1.20 -Wound/Ulcer Outcome Not Healed Not Healed -Ulcer Cleansing Rinsed/ Rinsed/ Irrigated with Irrigated with Saline Saline -Foul Odor after Cleansing No No -Bioengineered Tissue No No -Bleeding Controlled with Pressure Pressure -Offloading No No -Treatment Response Procedure Procedure Tolerated Well Tolerated Well Pain Scale: 0-10 Numeric Is Patient Pain Free? Yes Yes Wound debrided: lateral ankle ulcer Laterality: Right Type of Debridement: Excisional debridement Anesthesia Used: 4% Lidocaine Solution Depth: Down to and including healthy tissue, in the subcutaneous layer Percentage of wound debrided: 100 Instrument Used: 5mm curette Tissue Removed: subcutaneous tissue and slough Severity: Fat Layer Exposed Amount of bleeding with debridement: Mild Bleeding Controlled with: Pressure Patient tolerated procedure well - Additional Wound Wound debrided: heel Laterality: Left Type of Debridement: Excisional debridement Anesthesia Used: 4% Lidocaine Solution Depth: Down to and including healthy tissue, in the subcutaneous layer Percentage of wound debrided: 100 Instrument Used: 5mm curette Tissue Removed: subcutaneous tissue and slough Amount of bleeding with debridement: Mild Bleeding Controlled with: Pressure, Compression and gauze Patient tolerated procedure: Patient tolerated procedure well - Additional Wound Wound debrided: lateral lower leg ulcer Laterality: Left Type of Debridement: Excisional debridement Anesthesia Used: 4% Lidocaine Solution Depth: Down to and including healthy tissue, in the subcutaneous layer Percentage of wound debrided: 100 Instrument Used: 5mm curette Tissue Removed: subcutaneous tissue and slough Severity: Fat Layer Exposed Amount of bleeding with debridement: Mild Bleeding Controlled with: Pressure Patient tolerated procedure: Patient tolerated procedure well Assessment/Plan Assessment: 1. Ulcer of right lateral ankle. 2. Ulcer of left lateral leg. 3. Ulcer of left heel (plantar to posterior aspect). 4. DM type 2. 5. Wheelchair bound due to paraplegia Plan: 34 year old male was evaluated in the wound healing center today. A subcutaneous debridement was performed. Ordered Santyl but it was too expensive. He was approved for Apligraft which # 2 was placed several weeks ago. Patient has not been back in. He came in today for Apligraft #3 but there was not one available. We will apply silver dressing to ulcers daily. Will apply Tubigrip for compression. His insurance changes after the first of the year and he is not sure what the coverage will be for advanced wound healing products. Encouraged elevation of extremities to help with edema management. Encouraged increase in protein intake. Follow up in two weeks. Code Visit [id number]: [id number] Mylene subq tissue 20 sq cm/<
== END 2019-07-19 23:59 ==
LOC: WC 13:45
PROVIDERS: Family Provider Internal Medicine; PCP Internal Medicine; Referring Provider Nurse Practitioner Family; Visit Provider Nurse Practitioner Family
DX: E11.621 Type 2 diabetes mellitus with foot ulcer (principal); E11.622 Type 2 diabetes mellitus with other skin ulcer; L97.422 Non-pressure chronic ulcer of left heel and midfoot with fat layer exposed; L97.822 Non-pressure chronic ulcer of other part of left lower leg with fat layer exposed; L97.312 Non-pressure chronic ulcer of right ankle with fat layer exposed; G82.20 Paraplegia, unspecified; Z99.3 Dependence on wheelchair
CPT/HCPCS: 11042

== ENCOUNTER 2019-08-16 13:30 | Outpatient (RCR) | payer MEDICARE, OTHER, SELFPAY ==
[2019-07-20 00:43] VITALS: BP 164/86; PULSE 121; RESP 18; TEMP 36.3
[2019-08-02 13:11] VITALS: BP 155/82; PULSE 107; RESP 18; TEMP 36.3; BMI 44.7
--- NOTE | 2019-08-03 11:22 | PN.PCM_ITS ---
(1) Chronic ulcer of left heel Status: Chronic Current Visit: Yes Qualifiers: Non-pressure ulcer stage: limited to breakdown of skin Qualified Code(s): L97.421 - Non-pressure chronic ulcer of left heel and midfoot limited to breakdown of skin Code(s): L97.429 - Non-pressure chronic ulcer of left heel and midfoot with unspecified severity (2) Ulcer of left lower extremity with fat layer exposed Status: Chronic Current Visit: Yes Code(s): L97.922 - Non-pressure chronic ulcer of unspecified part of left lower leg with fat layer exposed (3) Ulcer of right lower extremity with fat layer exposed Status: Chronic Current Visit: Yes Code(s): L97.912 - Non-pressure chronic ulcer of unspecified part of right lower leg with fat layer exposed (4) Type 2 diabetes mellitus Status: Chronic Current Visit: No Qualifiers: Diabetes mellitus retirement insulin use: without termite exterminator use Code(s): E11.9 - Type 2 diabetes mellitus without complications Type of Wound Date of Service: 08/02/19 Chief Complaint: Ulcer on left plantar heel, left posterior heel, left lateral leg and right lateral ankle. History of Wound: Patient is 34 year old male who is wheel chair bound, paraplegic. He is independent in his ADL's. He has a history of Type 2 DM, last A1C 7.8%. He has obtained these ulcers over the past 6-9 months by trauma. He states he bumps his legs/feet/ankles and the trauma causes an ulcer. He has been seen at both our wound healing center and [facility]'s in [place] in the past for previous uclers. The only wound care he had been doing is washing them with Dakins solution that he had left over from [facility]. He was previously approved for Apligraf, and received 2 applications. He came in for the third placement of Apligraf but there was not one available. He was switched back to using silver to ulcers, and wearing Tubigrip. The patient denies any fever, chills, nausea, vomiting, or diarrhea. Denies any signs of infection, including increasing pain, redness, swelling, or drainage from affected area. Progress of Wound: Patient was formerly being seen by Mallory Edward, SARITA?C [facility]. However, due to change in providers schedules, patient will now be under my care at [facility]. Since the first of the year, patient has undergone changes in his health insurance, and is unsure what coverage she currently has. Given the duration of the wound and failure of the wound to respond to standard wound care, we will re-apply for advanced skin substitutes. Patient reports that a few days ago he accidentally hit his left plantar heel wound against his wheelchair, causing it to break open and bleed. Aside from this incident, patient reports his wounds have remained stable. He reports compliance with using silver dressings, and keeping wounds clean and dry. The patient denies any fever, chills, nausea, vomiting, or diarrhea. Denies any signs of infection, including increasing pain, redness, swelling, or drainage from affected area. - Physical Exam Vital Signs Temp Pulse Resp BP 97.3 F L 107 H 18 155/82 H 08/02/19 13:11 08/02/19 13:11 08/02/19 13:11 08/02/19 13:11 General: Alert, Cooperative, No apparent distress HEENT: Atraumatic, EOMI, Normocephalic Oral: Moist Mucosa Neck: Supple, No JVD, Trachea Midline Lungs: Clear to auscultation, Normal air movement, No rhonchi, No wheeze, No rales Cardiovascular: Regular rate, Regular Rhythm Abdomen: Bowel Sounds Present, Soft, Non Tender, Obese Extremities: No clubbing, No cyanosis, Capillary Refill Less than 3 Seconds, Edema - 1+ pitting edema bilateral lower legs; 2+ pitting edema of bilateral ankles, Peripheral Pulses Normal Skin: Ulcer/ Wound - Right lateral foot ulcer, left lateral lower extremity ulcer, left plantar heel ulcer. All ulcers with subcutaneous tissue exposed. Left plantar heel ulcer with large amount of overlying, partially detached callus due to recent trauma. No surrounding erythema, swelling, purulent or foul-smelling drainage from any of the ulcers. Wound Measurements and Assessment WC - Nurse 1 - General Ulcer Measurement Start: 08/02/19 13:11 Freq: Status: Active Protocol: Activity Type Activity Date Activity User E-Sign Co-Sign Detail Recorded Client Recorded Date Recorded By Document 08/02/19 13:11 RB [id number] 08/02/19 13:28 RB 08/02/19 13:11 Wound Center Nurse 1 [Ulcer Assessment] #6- R LAT FOOT -Combined with other wound No -Current Size (cm) - Length 1.2 -Current Size (cm) - Width 1.8 -Current Size (cm) - Depth 0.2 -Total Square Cm 2.16 -Tunneling No -Undermining/Tunneling No -Circular Undermining No -Exudate Amt Small -Exudate Type Serosanguineous -Wound Margin Flat & Intact -Granulation Amt Medium (34-66%) -Granulation Quality [place],Red -Slough/Fibrin Yes -Necrosis Amt Medium (34-66%) -Necrotic Tissue Type Adherent Slough -Structure Exposed N/A -Texture (Temi-wound Skin Appearance) Assessed -Moisture (Temi-wound Skin Appearance Assessed ) -Color (Temi-wound Skin Appearance) Assessed -Temperature (Temi-wound Skin No Abnormality Appearance) (Pt Warm) -Tenderness on Palpation (Temi-wound No Skin Appearance) -Ulcer Cleansing Wound Cleanser -Foul Odor after Cleansing No #5- L HEEL PLANTAR cluster -Combined with other wound No -Current Size (cm) - Length 5 -Current Size (cm) - Width 4 -Current Size (cm) - Depth 0.1 -Total Square Cm 20 -Tunneling No -Undermining/Tunneling No -Circular Undermining No -Exudate Amt Small -Exudate Type Serosanguineous -Wound Margin Flat & Intact -Granulation Amt Medium (34-66%) -Granulation Quality [place] -Slough/Fibrin Yes -Necrosis Amt Medium (34-66%) -Necrotic Tissue Type Adherent Slough -Structure Exposed N/A -Texture (Temi-wound Skin Appearance) Assessed -Moisture (Temi-wound Skin Appearance Assessed ) -Color (Temi-wound Skin Appearance) Assessed -Temperature (Temi-wound Skin No Abnormality Appearance) (Pt Warm) -Tenderness on Palpation (Temi-wound No Skin Appearance) -Ulcer Cleansing Rinsed/ Irrigated with Saline -Foul Odor after Cleansing No #3- Lateral LLE -Combined with other wound No -Current Size (cm) - Length 1.9 -Current Size (cm) - Width 0.8 -Current Size (cm) - Depth 0.2 -Total Square Cm 1.52 -Tunneling No -Undermining/Tunneling No -Circular Undermining No -Exudate Amt Small -Exudate Type Serosanguineous -Wound Margin Flat & Intact -Granulation Amt Medium (34-66%) -Granulation Quality [place] -Slough/Fibrin Yes -Necrosis Amt Small (1-33%) -Necrotic Tissue Type Adherent Slough -Structure Exposed N/A -Texture (Temi-wound Skin Appearance) Assessed -Moisture (Temi-wound Skin Appearance Assessed ) -Color (Temi-wound Skin Appearance) Assessed -Temperature (Temi-wound Skin No Abnormality Appearance) (Pt Warm) -Tenderness on Palpation (Temi-wound No Skin Appearance) -Ulcer Cleansing Wound Cleanser -Foul Odor after Cleansing No [Edema Assessment] -Lower Limb Edema Present Yes -Right Calf (cm) 44 -Right Ankle (cm) 28.5 -Left Calf (cm) 43 -Left Ankle (cm) 29 WC - Nurse 2 - General Ulcer CM Notes Start: 08/02/19 13:11 Freq: Status: Active Protocol: Activity Type Activity Date Activity User E-Sign Co-Sign Detail Recorded Client Recorded Date Recorded By Document 08/02/19 14:05 DV [id number] 08/02/19 14:22 DV 08/02/19 14:05 Wound Center Nurse 2 [Procedure/Treatment] #6- R LAT FOOT -Time 14:06 -Correct Patient Yes -Correct Side, Site, Position Yes -Correct Procedure Yes -Procedure Performed Yes -Type of Procedure Debridement -Clinical Debridement Subcutaneous -Post Debridement Size (cm) - Length 1.5 -Post Debridement Size (cm) - Width 2.3 -Post Debridement Size (cm) - Depth 0.4 -Total Square Cm 3.45 -Wound/Ulcer Outcome Not Healed -Ulcer Cleansing Rinsed/ Irrigated with Saline -Foul Odor after Cleansing No -Bioengineered Tissue No -Bleeding Controlled with Pressure -Offloading No -Treatment Response Procedure Tolerated Well #5- L HEEL PLANTAR cluster -Time 14:06 -Correct Patient Yes -Correct Side, Site, Position Yes -Correct Procedure Yes -Procedure Performed Yes -Type of Procedure Debridement -Clinical Debridement Subcutaneous -Post Debridement Size (cm) - Length 5.0 -Post Debridement Size (cm) - Width 3.1 -Post Debridement Size (cm) - Depth 0.2 -Total Square Cm 15.50 -Wound/Ulcer Outcome Not Healed -Ulcer Cleansing Rinsed/ Irrigated with Saline -Foul Odor after Cleansing No -Bioengineered Tissue No -Bleeding Controlled with Pressure -Offloading No -Treatment Response Procedure Tolerated Well #3- Lateral LLE -Time 14:10 -Correct Patient Yes -Correct Side, Site, Position Yes -Correct Procedure Yes -Procedure Performed Yes -Type of Procedure Debridement -Clinical Debridement Subcutaneous -Post Debridement Size (cm) - Length 2.2 -Post Debridement Size (cm) - Width 1.5 -Post Debridement Size (cm) - Depth 0.4 -Total Square Cm 3.30 -Wound/Ulcer Outcome Not Healed -Ulcer Cleansing Rinsed/ Irrigated with Saline -Foul Odor after Cleansing No -Bioengineered Tissue No -Bleeding Controlled with Pressure -Offloading No -Treatment Response Procedure Tolerated Well [See Physician Procedure note for Specifics] Pain Scale: 0-10 Numeric [Pain] -Is Patient Pain Free? Yes Musculoskeletal: - - Paraplegia, no sensation in bilateral lower extremities Neurological: - - Paraplegia, no sensation in bilateral lower extremities Psych/Mental Status: Normal Affect, Appropriate Debridement Note Post-Debridement Measurements/Treatment WC - Nurse 2 - General Ulcer CM Notes Start: 08/02/19 13:11 Freq: Status: Active Protocol: Activity Type Activity Date Activity User E-Sign Co-Sign Detail Recorded Client Recorded Date Recorded By Document 08/02/19 14:05 DV [id number] 08/02/19 14:22 DV 08/02/19 14:05 Wound Center Nurse 2 #6- R LAT FOOT -Time 14:06 -Correct Patient Yes -Correct Side, Site, Position Yes -Correct Procedure Yes -Procedure Performed Yes -Type of Procedure Debridement -Clinical Debridement Subcutaneous -Post Debridement Size (cm) - Length 1.5 -Post Debridement Size (cm) - Width 2.3 -Post Debridement Size (cm) - Depth 0.4 -Total Square Cm 3.45 -Wound/Ulcer Outcome Not Healed -Ulcer Cleansing Rinsed/ Irrigated with Saline -Foul Odor after Cleansing No -Bioengineered Tissue No -Bleeding Controlled with Pressure -Offloading No -Treatment Response Procedure Tolerated Well #5- L HEEL PLANTAR cluster -Time 14:06 -Correct Patient Yes -Correct Side, Site, Position Yes -Correct Procedure Yes -Procedure Performed Yes -Type of Procedure Debridement -Clinical Debridement Subcutaneous -Post Debridement Size (cm) - Length 5.0 -Post Debridement Size (cm) - Width 3.1 -Post Debridement Size (cm) - Depth 0.2 -Total Square Cm 15.50 -Wound/Ulcer Outcome Not Healed -Ulcer Cleansing Rinsed/ Irrigated with Saline -Foul Odor after Cleansing No -Bioengineered Tissue No -Bleeding Controlled with Pressure -Offloading No -Treatment Response Procedure Tolerated Well #3- Lateral LLE -Time 14:10 -Correct Patient Yes -Correct Side, Site, Position Yes -Correct Procedure Yes -Procedure Performed Yes -Type of Procedure Debridement -Clinical Debridement Subcutaneous -Post Debridement Size (cm) - Length 2.2 -Post Debridement Size (cm) - Width 1.5 -Post Debridement Size (cm) - Depth 0.4 -Total Square Cm 3.30 -Wound/Ulcer Outcome Not Healed -Ulcer Cleansing Rinsed/ Irrigated with Saline -Foul Odor after Cleansing No -Bioengineered Tissue No -Bleeding Controlled with Pressure -Offloading No -Treatment Response Procedure Tolerated Well Pain Scale: 0-10 Numeric Is Patient Pain Free? Yes Wound debrided: Right lateral foot Laterality: Right Type of Debridement: Excisional debridement Anesthesia Used: 5% Lidocaine Gel Depth: in the subcutaneous layer Percentage of wound debrided: 100 Instrument Used: 5mm curette Tissue Removed: Slough and devitalized tissue Severity: Fat Layer Exposed Amount of bleeding with debridement: Mild Bleeding Controlled with: Compression and gauze Patient tolerated procedure well - Additional Wound Wound debrided: Left plantar heel Laterality: Left Type of Debridement: Excisional debridement Anesthesia Used: 5% Lidocaine Gel Depth: in the subcutaneous layer Percentage of wound debrided: 100 Instrument Used: 7mm curette, - - Scissors Tissue Removed: Callus, slough and devitalized tissue Severity: Fat Layer Exposed Amount of bleeding with debridement: Moderate Bleeding Controlled with: Compression and gauze Patient tolerated procedure: Patient tolerated procedure well - Additional Wound Wound debrided: Lateral LLE Laterality: Left Type of Debridement: Excisional debridement Anesthesia Used: 4% Lidocaine Solution Depth: in the subcutaneous layer Percentage of wound debrided: 100 Instrument Used: 5mm curette Tissue Removed: Slough and devitalized tissue Severity: Fat Layer Exposed Amount of bleeding with debridement: Mild Bleeding Controlled with: Compression and gauze Patient tolerated procedure: Patient tolerated procedure well Assessment/Plan Active Problems (Last Reviewed 06/08/19 @ 13:17 by Diana Kovacs) Ulcer of left lower extremity with fat layer exposed (Chronic) Chronic ulcer of left heel (Chronic) Ulcer of right lower extremity with fat layer exposed (Chronic) Assessment: 1. Ulcer of right lateral ankle. 2. Ulcer of left lateral leg. 3. Ulcer of left heel (plantar to posterior aspect). 4. DM type 2. 5. Wheelchair bound due to paraplegia Plan: Debridement performed today in clinic. Melgisorb Ag applied. Given the duration of the wound and failure of the wound to respond to standard wound care, we will apply for advanced skin substitutes. At home wound-care instructions: Continue daily dressing change with calcium alginate with silver. Apply nurse's hat to heel. May shower. Remove dressing prior to showering, and replaced with a clean dressing following shower. Avoid soaking or submersion of wounds. Compression: Tubigrip applied today in clinic. Will await results of ABIs to further determine compression. Off-loading: Avoid pressure to right lateral foot, left heel, and left lateral lower extremity. Keep feet elevated as much as possible, at or above waist level. Avoid prolonged dangling of legs. Diet: Patient encouraged to increase protein and vitamin C intake while taking caution to avoid high carbohydrate and/or sugar intake. Labs/cultures/imaging: Recent labs and previous records reviewed. Vascular studies ordered. Follow-up: Return to clinic in 1 week for re- evaluation. Return sooner or report to the emergency room should symptoms worsen, or new symptoms arise. Note: [employer] speech recognition water gas operator software was used to create portions of this document. Sound-alike and misspelled words, as well as other water gas operator errors may be contained in the documentation. Code Visit Office Visits / Consults: 61395 OV L4 Est [id number]: [id number] Mylene subq tissue 20 sq cm/<
[2019-08-09 13:51] VITALS: RESP 16; TEMP 36.2; BMI 44.7
--- NOTE | 2019-08-09 14:51 | PN.PCM_ITS ---
(1) Chronic ulcer of left heel Status: Chronic Current Visit: Yes Qualifiers: Non-pressure ulcer stage: limited to breakdown of skin Qualified Code(s): L97.421 - Non-pressure chronic ulcer of left heel and midfoot limited to breakdown of skin Code(s): L97.429 - Non-pressure chronic ulcer of left heel and midfoot with unspecified severity (2) Ulcer of left lower extremity with fat layer exposed Status: Chronic Current Visit: Yes Code(s): L97.922 - Non-pressure chronic ulcer of unspecified part of left lower leg with fat layer exposed (3) Ulcer of right lower extremity with fat layer exposed Status: Chronic Current Visit: Yes Code(s): L97.912 - Non-pressure chronic ulcer of unspecified part of right lower leg with fat layer exposed (4) Type 2 diabetes mellitus Status: Chronic Current Visit: No Qualifiers: Diabetes mellitus senior living insulin use: without senior living use Code(s): E11.9 - Type 2 diabetes mellitus without complications (5) PVD (peripheral vascular disease) Status: Chronic Current Visit: Yes Code(s): I73.9 - Peripheral vascular disease, unspecified (6) 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 History of Wound: Patient is 34 year old male who is wheel chair bound, paraplegic. He was formerly being managed by Mallory Edward NP[facility]. However due to changes in providers' schedules, he is now under my care. He is independent in his ADL's. He has a history of Type 2 DM, last A1C 7.8%. He has obtained these ulcers over the past 6-9 months by trauma. He states he bumps his legs/feet/ankles and the trauma causes an ulcer. He has been seen at both our wound healing center and [facility]'s in [place] in the past for previous uclers. The only wound care he had been doing is washing them with Dakins solution that he had left over from [facility]. He was previously approved for Apligraf, and received 2 applications. He came in for the third placement of Apligraf but there was not one available. He was switched back to using silver to ulcers, and wearing Tubigrip. The patient denies any fever, chills, nausea, vomiting, or diarrhea. Denies any signs of infection, including increasing pain, redness, swelling, or drainage from affected area. Patient reports that 1-2 weeks ago he accidentally hit his left plantar heel wound against his wheelchair, causing it to break open and bleed. Aside from this incident, patient reports his wounds have remained stable. Progress of Wound: Improvement in size and appearance of wounds. Patient reports compliance with silver alginate dressings. He reports he has been wearing compression while working, and trying to keep his feet elevated as much as possible when resting. The patient denies any fever, chills, nausea, vomiting, or diarrhea. Denies any signs of infection, including increasing pain, redness, swelling, or foul-smelling/purulent drainage from affected area. - Physical Exam Vital Signs Temp Pulse Resp BP 97.1 F L 107 H 16 155/82 H 08/09/19 13:51 08/02/19 13:11 08/09/19 13:51 08/02/19 13:11 General: Alert, Oriented x3, Cooperative, No apparent distress HEENT: PERRLA, EOMI, Normocephalic Oral: Moist Mucosa Neck: Supple, No JVD, Trachea Midline Lungs: Normal air movement Cardiovascular: Regular rate Extremities: No clubbing, No cyanosis, Cool - Right foot and right lower extremity cool to touch compared to left foot and left lower extremity, Edema - 1+ pitting edema of bilateral lower extremities; 2+ pitting edema of bilateral ankles., Peripheral Pulses Normal Skin: Ulcer/ Wound - Right lateral ankle ulcer, left lateral lower extremity ulcer, left plantar heel ulcer. All ulcers with subcutaneous tissue exposed. No surrounding erythema, swelling, warmth, purulent or foul-smelling drainage from any of the ulcers. No undermining, tunneling, or probing to bone of any of the patient's ulcers. Wound Measurements and Assessment WC - Nurse 1 - General Ulcer Measurement Start: 08/02/19 13:11 Freq: Status: Active Protocol: Activity Type Activity Date Activity User E-Sign Co-Sign Detail Recorded Client Recorded Date Recorded By Document 08/09/19 13:51 [facility] [id number] 08/09/19 14:01 [facility] 08/09/19 13:51 Wound Center Nurse 1 [Ulcer Assessment] #6- R LAT FOOT -Combined with other wound No -Current Size (cm) - Length 1.3 -Current Size (cm) - Width 1.3 -Current Size (cm) - Depth 0.3 -Total Square Cm 1.69 -Photo Taken No -Epithelialization None Present -Tunneling No -Undermining/Tunneling No -Circular Undermining No -Exudate Amt Small -Exudate Type Serosanguineous -Wound Margin Distinct, Outline Attached -Granulation Amt Medium (34-66%) -Granulation Quality Red -Slough/Fibrin Yes -Necrosis Amt Medium (34-66%) -Necrotic Tissue Type Adherent Slough -Texture (Temi-wound Skin Appearance) Assessed, Scarring -Moisture (Temi-wound Skin Appearance Assessed ) -Color (Temi-wound Skin Appearance) Assessed -Temperature (Temi-wound Skin No Abnormality Appearance) (Pt Warm) -Tenderness on Palpation (Temi-wound No Skin Appearance) -Ulcer Cleansing Rinsed/ Irrigated with Saline -Foul Odor after Cleansing No #5- L HEEL PLANTAR cluster -Combined with other wound No -Current Size (cm) - Length 2.8 -Current Size (cm) - Width 2.3 -Current Size (cm) - Depth 0.2 -Total Square Cm 6.44 -Photo Taken No -Epithelialization Small 1-33% -Tunneling No -Undermining/Tunneling No -Circular Undermining No -Exudate Amt Small -Exudate Type Serosanguineous -Wound Margin Distinct, Outline Attached -Granulation Amt Medium (34-66%) -Granulation Quality Red -Slough/Fibrin Yes -Necrosis Amt Medium (34-66%) -Necrotic Tissue Type Adherent Slough -Texture (Temi-wound Skin Appearance) Assessed,Callus ,Scarring -Moisture (Temi-wound Skin Appearance Assessed,Dry/ ) Scaly -Color (Temi-wound Skin Appearance) Assessed -Temperature (Temi-wound Skin No Abnormality Appearance) (Pt Warm) -Tenderness on Palpation (Temi-wound No Skin Appearance) -Ulcer Cleansing Rinsed/ Irrigated with Saline -Foul Odor after Cleansing No #3- Lateral LLE -Combined with other wound No -Current Size (cm) - Length 2.3 -Current Size (cm) - Width 1.9 -Current Size (cm) - Depth 0.2 -Total Square Cm 4.37 -Photo Taken No -Epithelialization Small 1-33% -Tunneling No -Undermining/Tunneling No -Circular Undermining No -Exudate Amt Small -Exudate Type Serosanguineous -Wound Margin Distinct, Outline Attached -Granulation Amt Large (67-100%) -Granulation Quality Red -Slough/Fibrin Yes -Necrosis Amt Small (1-33%) -Necrotic Tissue Type Adherent Slough -Texture (Temi-wound Skin Appearance) Assessed, Scarring -Moisture (Temi-wound Skin Appearance Assessed,Dry/ ) Scaly -Color (Temi-wound Skin Appearance) Assessed -Temperature (Temi-wound Skin No Abnormality Appearance) (Pt Warm) -Tenderness on Palpation (Temi-wound No Skin Appearance) -Ulcer Cleansing Rinsed/ Irrigated with Saline -Foul Odor after Cleansing No [Edema Assessment] -Lower Limb Edema Present Yes -Right Calf (cm) 42 -Right Ankle (cm) 27 -Left Calf (cm) 41.6 -Left Ankle (cm) 27.9 WC - Nurse 2 - General Ulcer CM Notes Start: 08/02/19 13:11 Freq: Status: Active Protocol: Activity Type Activity Date Activity User E-Sign Co-Sign Detail Recorded Client Recorded Date Recorded By Document 08/09/19 14:18 DV [id number] 08/09/19 14:33 DV 08/09/19 14:18 Wound Center Nurse 2 [Procedure/Treatment] #6- R LAT FOOT -Time 14:19 -Correct Patient Yes -Correct Side, Site, Position Yes -Correct Procedure Yes -Procedure Performed Yes -Type of Procedure Debridement -Clinical Debridement Subcutaneous -Post Debridement Size (cm) - Length 1.9 -Post Debridement Size (cm) - Width 1.4 -Post Debridement Size (cm) - Depth 0.4 -Total Square Cm 2.66 -Wound/Ulcer Outcome Not Healed -Ulcer Cleansing Rinsed/ Irrigated with Saline -Foul Odor after Cleansing No -Bioengineered Tissue No -Bleeding Controlled with Pressure -Offloading No -Treatment Response Procedure Tolerated Well #5- L HEEL PLANTAR cluster -Time 14:20 -Correct Patient Yes -Correct Side, Site, Position Yes -Correct Procedure Yes -Procedure Performed Yes -Type of Procedure Debridement -Clinical Debridement Subcutaneous -Post Debridement Size (cm) - Length 2.9 -Post Debridement Size (cm) - Width 3.0 -Post Debridement Size (cm) - Depth 0.2 -Total Square Cm 8.70 -Wound/Ulcer Outcome Not Healed -Ulcer Cleansing Rinsed/ Irrigated with Saline -Foul Odor after Cleansing No -Bioengineered Tissue No -Bleeding Controlled with Pressure -Offloading No -Treatment Response Procedure Tolerated Well #3- Lateral LLE -Time 14:21 -Correct Patient Yes -Correct Side, Site, Position Yes -Correct Procedure Yes -Procedure Performed Yes -Type of Procedure Debridement -Clinical Debridement Subcutaneous -Post Debridement Size (cm) - Length 2.5 -Post Debridement Size (cm) - Width 2.0 -Post Debridement Size (cm) - Depth 0.3 -Total Square Cm 5.00 -Wound/Ulcer Outcome Not Healed -Ulcer Cleansing Rinsed/ Irrigated with Saline -Foul Odor after Cleansing No -Bioengineered Tissue No -Bleeding Controlled with Pressure -Offloading No -Treatment Response Procedure Tolerated Well [See Physician Procedure note for Specifics] Pain Scale: 0-10 Numeric [Pain] -Is Patient Pain Free? Yes Musculoskeletal: - - Paraplegia, no sensation in bilateral lower extremities Neurological: - - Paraplegia, no sensation of bilateral lower extremities Psych/Mental Status: Normal Affect, Appropriate Debridement Note Post-Debridement Measurements/Treatment WC - Nurse 2 - General Ulcer CM Notes Start: 08/02/19 13:11 Freq: Status: Active Protocol: Activity Type Activity Date Activity User E-Sign Co-Sign Detail Recorded Client Recorded Date Recorded By Document 08/02/19 14:05 DV [id number] 08/02/19 14:22 DV Document 08/09/19 14:18 DV [id number] 08/09/19 14:33 DV 08/02/19 08/09/19 14:05 14:18 Wound Center Nurse 2 #6- R LAT FOOT -Time 14:06 14:19 -Correct Patient Yes Yes -Correct Side, Site, Position Yes Yes -Correct Procedure Yes Yes -Procedure Performed Yes Yes -Type of Procedure Debridement Debridement -Clinical Debridement Subcutaneous Subcutaneous -Post Debridement Size (cm) - Length 1.5 1.9 -Post Debridement Size (cm) - Width 2.3 1.4 -Post Debridement Size (cm) - Depth 0.4 0.4 -Total Square Cm 3.45 2.66 -Wound/Ulcer Outcome Not Healed Not Healed -Ulcer Cleansing Rinsed/ Rinsed/ Irrigated with Irrigated with Saline Saline -Foul Odor after Cleansing No No -Bioengineered Tissue No No -Bleeding Controlled with Pressure Pressure -Offloading No No -Treatment Response Procedure Procedure Tolerated Well Tolerated Well #5- L HEEL PLANTAR cluster -Time 14:06 14:20 -Correct Patient Yes Yes -Correct Side, Site, Position Yes Yes -Correct Procedure Yes Yes -Procedure Performed Yes Yes -Type of Procedure Debridement Debridement -Clinical Debridement Subcutaneous Subcutaneous -Post Debridement Size (cm) - Length 5.0 2.9 -Post Debridement Size (cm) - Width 3.1 3.0 -Post Debridement Size (cm) - Depth 0.2 0.2 -Total Square Cm 15.50 8.70 -Wound/Ulcer Outcome Not Healed Not Healed -Ulcer Cleansing Rinsed/ Rinsed/ Irrigated with Irrigated with Saline Saline -Foul Odor after Cleansing No No -Bioengineered Tissue No No -Bleeding Controlled with Pressure Pressure -Offloading No No -Treatment Response Procedure Procedure Tolerated Well Tolerated Well #3- Lateral LLE -Time 14:10 14:21 -Correct Patient Yes Yes -Correct Side, Site, Position Yes Yes -Correct Procedure Yes Yes -Procedure Performed Yes Yes -Type of Procedure Debridement Debridement -Clinical Debridement Subcutaneous Subcutaneous -Post Debridement Size (cm) - Length 2.2 2.5 -Post Debridement Size (cm) - Width 1.5 2.0 -Post Debridement Size (cm) - Depth 0.4 0.3 -Total Square Cm 3.30 5.00 -Wound/Ulcer Outcome Not Healed Not Healed -Ulcer Cleansing Rinsed/ Rinsed/ Irrigated with Irrigated with Saline Saline -Foul Odor after Cleansing No No -Bioengineered Tissue No No -Bleeding Controlled with Pressure Pressure -Offloading No No -Treatment Response Procedure Procedure Tolerated Well Tolerated Well Pain Scale: 0-10 Numeric Is Patient Pain Free? Yes Yes Wound debrided: Right lateral ankle Laterality: Right Type of Debridement: Excisional debridement Depth: in the subcutaneous layer Percentage of wound debrided: 100 Instrument Used: 5mm curette Tissue Removed: Slough and devitalized tissue Severity: Fat Layer Exposed Amount of bleeding with debridement: Mild Bleeding Controlled with: Compression and gauze Patient tolerated procedure well - Additional Wound Wound debrided: Left heel plantar cluster Laterality: Left Type of Debridement: Excisional debridement Anesthesia Used: 5% Lidocaine Gel Depth: in the subcutaneous layer Percentage of wound debrided: 100 Instrument Used: 5mm curette Tissue Removed: Slough and devitalized tissue Severity: Fat Layer Exposed Amount of bleeding with debridement: Mild Bleeding Controlled with: Compression and gauze Patient tolerated procedure: Patient tolerated procedure well - Additional Wound Wound debrided: Lateral left lower extremity ulcer Type of Debridement: Excisional debridement Anesthesia Used: 5% Lidocaine Gel Depth: in the subcutaneous layer Percentage of wound debrided: 100 Instrument Used: 5mm curette Severity: Fat Layer Exposed Amount of bleeding with debridement: Moderate Bleeding Controlled with: Compression and gauze Patient tolerated procedure: Patient tolerated procedure well Assessment/Plan Active Problems (Last Reviewed 06/08/19 @ 13:17 by Diana Kovacs) PVD (peripheral vascular disease) (Chronic) Ulcer of left lower extremity with fat layer exposed (Chronic) Chronic ulcer of left heel (Chronic) Ulcer of right lower extremity with fat layer exposed (Chronic) 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 Ulcer of right lateral ankle. 2. Ulcer of left lateral leg. 3. Ulcer of left heel (plantar to posterior aspect). 4. DM type 2. 5. Wheelchair bound due to paraplegia. 6. PVD Plan: Debridement performed today in clinic. Melgisorb Ag applied. Given the duration of the wound and failure of the wound to respond to standard wound care, we have reapplied for advanced skin substitutes-- pending. At home wound- care instructions: Continue daily dressing change with calcium alginate with silver. Apply nurse's hat to heel. May shower. Remove dressing prior to showering, and replace with a clean dressing following shower. Avoid soaking or submersion of wounds. Compression: Tubigrip applied today in clinic. Will await results of ABIs to further determine compression--scheduled for 08/10/2019. Off-loading: Avoid pressure to right lateral foot, left heel, and left lateral lower extremity. Keep feet elevated as much as possible, at or above waist level. Avoid prolonged dangling of legs. Diet: Patient encouraged to increase protein and vitamin C intake while taking caution to avoid high carbohydrate and/or sugar intake. Labs/cultures/imaging: Recent labs and previous records reviewed. Vascular studies ordered--scheduled 08/10/2019. Follow-up: Return to clinic in 1 week for re-evaluation. Return sooner or report to the emergency room should symptoms worsen, or new symptoms arise. Note: [employer] speech recognition auto brake mechanic software was used to create portions of this document. Sound-alike and misspelled words, as well as other auto brake mechanic errors may be contained in the documentation. Code Visit [id number]: 83933 Mylene subq tissue 20 sq cm/<
[2019-08-16 13:34] VITALS: RESP 16; BMI 44.7
--- NOTE | 2019-08-16 16:56 | PCM.WC.PN ---
(1) Chronic ulcer of left heel Status: Chronic Current Visit: Yes Qualifiers: Non-pressure ulcer stage: limited to breakdown of skin Qualified Code(s): L97.421 - Non-pressure chronic ulcer of left heel and midfoot limited to breakdown of skin Code(s): L97.429 - Non-pressure chronic ulcer of left heel and midfoot with unspecified severity (2) Ulcer of left lower extremity with fat layer exposed Status: Chronic Current Visit: Yes Code(s): L97.922 - Non-pressure chronic ulcer of unspecified part of left lower leg with fat layer exposed (3) Ulcer of right lower extremity with fat layer exposed Status: Chronic Current Visit: Yes Code(s): L97.912 - Non-pressure chronic ulcer of unspecified part of right lower leg with fat layer exposed (4) Type 2 diabetes mellitus Status: Chronic Current Visit: No Qualifiers: Diabetes mellitus senior living insulin use: without senior living use Code(s): E11.9 - Type 2 diabetes mellitus without complications (5) PVD (peripheral vascular disease) Status: Chronic Current Visit: Yes Code(s): I73.9 - Peripheral vascular disease, unspecified (6) 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 History of Wound: Patient is 34 year old male who is wheel chair bound, paraplegic. He was formerly being managed by Mallory Edward NP[facility]. However due to changes in providers' schedules, he is now under my care. He is independent in his ADL's. He has a history of Type 2 DM, last A1C 7.8%. He has obtained these ulcers over the past 6-9 months by trauma. He states he bumps his legs/feet/ankles and the trauma causes an ulcer. He has been seen at both our wound healing center and [facility]'s in [place] in the past for previous uclers. The only wound care he had been doing is washing them with Dakins solution that he had left over from [facility]. He was previously approved for Apligraf, and received 2 applications. He came in for the third placement of Apligraf but there was not one available. He was switched back to using silver to ulcers, and wearing Tubigrip. The patient denies any fever, chills, nausea, vomiting, or diarrhea. Denies any signs of infection, including increasing pain, redness, swelling, or drainage from affected area. Patient reports that 1-2 weeks ago he accidentally hit his left plantar heel wound against his wheelchair, causing it to break open and bleed. Aside from this incident, patient reports his wounds have remained stable. Progress of Wound: Continued improvement in size and appearance of wounds. Patient reports compliance with calcium silver alginate dressings. He reports he has been wearing compression while working, and trying to keep his feet elevated as much as possible when resting. Swelling in BLE is greatly improved this week. The patient denies any fever, chills, nausea, vomiting, or diarrhea. Denies any signs of infection, including increasing pain, redness, swelling, or foul-smelling/purulent drainage from affected area. - Physical Exam Vital Signs Temp Pulse Resp BP 97.1 F L 107 H 16 155/82 H 08/09/19 13:51 08/02/19 13:11 08/16/19 13:34 08/02/19 13:11 General: Alert, Oriented x3, Cooperative, No apparent distress HEENT: Atraumatic, Normocephalic Oral: Moist Mucosa Neck: Supple, No JVD, Trachea Midline Lungs: Normal air movement Cardiovascular: Regular rate Extremities: No clubbing, No cyanosis, Capillary Refill Less than 3 Seconds, Edema - Trace edema of bilateral lower extremities, Peripheral Pulses Normal Skin: Ulcer/ Wound - Right lateral ankle ulcer, left lateral lower extremity ulcer, left plantar heel ulcer. All ulcers with subcutaneous tissue exposed. No surrounding erythema, swelling, warmth, purulent or foul-smelling drainage from any of the ulcers. No undermining, tunneling, or probing to bone of any of the patient's ulcers. Wound Measurements and Assessment WC - Nurse 1 - General Ulcer Measurement Start: 08/02/19 13:11 Freq: Status: Active Protocol: Activity Type Activity Date Activity User E-Sign Co-Sign Detail Recorded Client Recorded Date Recorded By Document 08/16/19 13:34 [facility] [id number] 08/16/19 13:49 [facility] 08/16/19 13:34 Wound Center Nurse 1 [Ulcer Assessment] #6- R LAT FOOT -Combined with other wound No -Current Size (cm) - Length 1.5 -Current Size (cm) - Width 1.4 -Current Size (cm) - Depth 0.5 -Total Square Cm 2.10 -Photo Taken No -Epithelialization None Present -Tunneling No -Undermining/Tunneling No -Circular Undermining No -Exudate Amt Small -Exudate Type Serosanguineous -Wound Margin Distinct, Outline Attached -Granulation Amt Medium (34-66%) -Granulation Quality Red -Slough/Fibrin Yes -Necrosis Amt Medium (34-66%) -Necrotic Tissue Type Adherent Slough -Texture (Temi-wound Skin Appearance) Assessed,Callus ,Scarring -Moisture (Temi-wound Skin Appearance Assessed,Dry/ ) Scaly -Color (Temi-wound Skin Appearance) Assessed -Temperature (Temi-wound Skin No Abnormality Appearance) (Pt Warm) -Tenderness on Palpation (Temi-wound No Skin Appearance) -Ulcer Cleansing Rinsed/ Irrigated with Saline -Foul Odor after Cleansing No #5- L HEEL PLANTAR cluster -Combined with other wound No -Current Size (cm) - Length 2.4 -Current Size (cm) - Width 1.6 -Current Size (cm) - Depth 0.3 -Total Square Cm 3.84 -Photo Taken No -Epithelialization None Present -Tunneling No -Undermining/Tunneling No -Circular Undermining No -Exudate Amt Small -Exudate Type Serosanguineous -Wound Margin Distinct, Outline Attached -Granulation Amt Medium (34-66%) -Granulation Quality Red -Slough/Fibrin Yes -Necrosis Amt Medium (34-66%) -Necrotic Tissue Type Adherent Slough -Texture (Temi-wound Skin Appearance) Assessed,Callus ,Scarring -Moisture (Temi-wound Skin Appearance Assessed,Dry/ ) Scaly -Color (Temi-wound Skin Appearance) Assessed -Temperature (Temi-wound Skin No Abnormality Appearance) (Pt Warm) -Tenderness on Palpation (Temi-wound No Skin Appearance) -Ulcer Cleansing Rinsed/ Irrigated with Saline -Foul Odor after Cleansing No #3- Lateral LLE -Combined with other wound No -Current Size (cm) - Length 2.1 -Current Size (cm) - Width 1.5 -Current Size (cm) - Depth 0.3 -Total Square Cm 3.15 -Photo Taken No -Epithelialization None Present -Tunneling No -Undermining/Tunneling No -Circular Undermining No -Exudate Amt Small -Exudate Type Serosanguineous -Wound Margin Thickened -Granulation Amt Medium (34-66%) -Granulation Quality Red -Slough/Fibrin Yes -Necrosis Amt Small (1-33%) -Necrotic Tissue Type Adherent Slough -Texture (Temi-wound Skin Appearance) Assessed, Scarring -Moisture (Temi-wound Skin Appearance Assessed,Dry/ ) Scaly -Color (Temi-wound Skin Appearance) Assessed -Temperature (Temi-wound Skin No Abnormality Appearance) (Pt Warm) -Tenderness on Palpation (Temi-wound No Skin Appearance) -Ulcer Cleansing Rinsed/ Irrigated with Saline -Foul Odor after Cleansing No [Edema Assessment] -Lower Limb Edema Present Yes -Right Calf (cm) 41.8 -Right Ankle (cm) 26.5 -Left Calf (cm) 41.4 -Left Ankle (cm) 26.5 WC - Nurse 2 - General Ulcer CM Notes Start: 08/02/19 13:11 Freq: Status: Active Protocol: Activity Type Activity Date Activity User E-Sign Co-Sign Detail Recorded Client Recorded Date Recorded By Document 08/16/19 14:19 [id number] 08/16/19 14:21 CHARLI 08/16/19 14:19 Wound Center Nurse 2 [Procedure/Treatment] #6- R LAT FOOT -Time 14:19 -Correct Patient Yes -Correct Side, Site, Position Yes -Correct Procedure Yes -Procedure Performed Yes -Type of Procedure Debridement -Clinical Debridement Subcutaneous -Post Debridement Size (cm) - Length 1.7 -Post Debridement Size (cm) - Width 1.5 -Post Debridement Size (cm) - Depth 0.4 -Total Square Cm 2.55 -Wound/Ulcer Outcome Not Healed -Ulcer Cleansing Rinsed/ Irrigated with Saline -Foul Odor after Cleansing No -Bioengineered Tissue No -Bleeding Controlled with Pressure -Offloading No -Treatment Response Procedure Tolerated Well #5- L HEEL PLANTAR cluster -Time 14:20 -Correct Patient Yes -Correct Side, Site, Position Yes -Correct Procedure Yes -Procedure Performed Yes -Type of Procedure Debridement -Clinical Debridement Subcutaneous -Post Debridement Size (cm) - Length 2.7 -Post Debridement Size (cm) - Width 2.3 -Post Debridement Size (cm) - Depth 0.4 -Total Square Cm 6.21 -Wound/Ulcer Outcome Not Healed -Ulcer Cleansing Rinsed/ Irrigated with Saline -Foul Odor after Cleansing No -Bioengineered Tissue No -Bleeding Controlled with Pressure -Offloading No -Treatment Response Procedure Tolerated Well #3- Lateral LLE -Time 14:20 -Correct Patient Yes -Correct Side, Site, Position Yes -Correct Procedure Yes -Procedure Performed Yes -Type of Procedure Debridement -Clinical Debridement Subcutaneous -Post Debridement Size (cm) - Length 2.2 -Post Debridement Size (cm) - Width 1.5 -Post Debridement Size (cm) - Depth 0.3 -Total Square Cm 3.30 -Wound/Ulcer Outcome Not Healed -Ulcer Cleansing Rinsed/ Irrigated with Saline -Foul Odor after Cleansing No -Bioengineered Tissue No -Bleeding Controlled with Pressure -Offloading No -Treatment Response Procedure Tolerated Well [See Physician Procedure note for Specifics] Pain Scale: 0-10 Numeric [Pain] -Is Patient Pain Free? Yes Musculoskeletal: - - Paraplegia, no sensation in bilateral lower extremities Neurological: - - Paraplegia, no sensation in bilateral lower extremities. Wheelchair-bound. Psych/Mental Status: Normal Affect, Appropriate Debridement Note Post-Debridement Measurements/Treatment WC - Nurse 2 - General Ulcer CM Notes Start: 08/02/19 13:11 Freq: Status: Active Protocol: Activity Type Activity Date Activity User E-Sign Co-Sign Detail Recorded Client Recorded Date Recorded By Document 08/02/19 14:05 DV [id number] 08/02/19 14:22 DV Document 08/09/19 14:18 [id number] 08/09/19 14:33 DV Document 08/16/19 14:19 [id number] 08/16/19 14:21 08/02/19 08/09/19 08/16/19 14:05 14:18 14:19 Wound Center Nurse 2 #6- R LAT FOOT -Time 14:06 14:19 14:19 -Correct Patient Yes Yes Yes -Correct Side, Site, Position Yes Yes Yes -Correct Procedure Yes Yes Yes -Procedure Performed Yes Yes Yes -Type of Procedure Debridement Debridement Debridement -Clinical Debridement Subcutaneous Subcutaneous Subcutaneous -Post Debridement Size (cm) - Length 1.5 1.9 1.7 -Post Debridement Size (cm) - Width 2.3 1.4 1.5 -Post Debridement Size (cm) - Depth 0.4 0.4 0.4 -Total Square Cm 3.45 2.66 2.55 -Wound/Ulcer Outcome Not Healed Not Healed Not Healed -Ulcer Cleansing Rinsed/ Rinsed/ Rinsed/ Irrigated with Irrigated with Irrigated with Saline Saline Saline -Foul Odor after Cleansing No No No -Bioengineered Tissue No No No -Bleeding Controlled with Pressure Pressure Pressure -Offloading No No No -Treatment Response Procedure Procedure Procedure Tolerated Well Tolerated Well Tolerated Well #5- L HEEL PLANTAR cluster -Time 14:06 14:20 14:20 -Correct Patient Yes Yes Yes -Correct Side, Site, Position Yes Yes Yes -Correct Procedure Yes Yes Yes -Procedure Performed Yes Yes Yes -Type of Procedure Debridement Debridement Debridement -Clinical Debridement Subcutaneous Subcutaneous Subcutaneous -Post Debridement Size (cm) - Length 5.0 2.9 2.7 -Post Debridement Size (cm) - Width 3.1 3.0 2.3 -Post Debridement Size (cm) - Depth 0.2 0.2 0.4 -Total Square Cm 15.50 8.70 6.21 -Wound/Ulcer Outcome Not Healed Not Healed Not Healed -Ulcer Cleansing Rinsed/ Rinsed/ Rinsed/ Irrigated with Irrigated with Irrigated with Saline Saline Saline -Foul Odor after Cleansing No No No -Bioengineered Tissue No No No -Bleeding Controlled with Pressure Pressure Pressure -Offloading No No No -Treatment Response Procedure Procedure Procedure Tolerated Well Tolerated Well Tolerated Well #3- Lateral LLE -Time 14:10 14:21 14:20 -Correct Patient Yes Yes Yes -Correct Side, Site, Position Yes Yes Yes -Correct Procedure Yes Yes Yes -Procedure Performed Yes Yes Yes -Type of Procedure Debridement Debridement Debridement -Clinical Debridement Subcutaneous Subcutaneous Subcutaneous -Post Debridement Size (cm) - Length 2.2 2.5 2.2 -Post Debridement Size (cm) - Width 1.5 2.0 1.5 -Post Debridement Size (cm) - Depth 0.4 0.3 0.3 -Total Square Cm 3.30 5.00 3.30 -Wound/Ulcer Outcome Not Healed Not Healed Not Healed -Ulcer Cleansing Rinsed/ Rinsed/ Rinsed/ Irrigated with Irrigated with Irrigated with Saline Saline Saline -Foul Odor after Cleansing No No No -Bioengineered Tissue No No No -Bleeding Controlled with Pressure Pressure Pressure -Offloading No No No -Treatment Response Procedure Procedure Procedure Tolerated Well Tolerated Well Tolerated Well Pain Scale: 0-10 Numeric Is Patient Pain Free? Yes Yes Yes Wound debrided: Right lateral ankle Laterality: Right Type of Debridement: Excisional debridement Anesthesia Used: 5% Lidocaine Gel Depth: in the subcutaneous layer Percentage of wound debrided: 100 Instrument Used: 5mm curette Tissue Removed: Slough and devitalized tissue Severity: Fat Layer Exposed Amount of bleeding with debridement: Mild Bleeding Controlled with: Compression and gauze Patient tolerated procedure well - Additional Wound Wound debrided: Left heel plantar Laterality: Left Type of Debridement: Excisional debridement Anesthesia Used: 5% Lidocaine Gel Depth: in the subcutaneous layer Percentage of wound debrided: 100 Instrument Used: 7mm curette Tissue Removed: Slough and devitalized tissue Severity: Fat Layer Exposed Amount of bleeding with debridement: Mild Bleeding Controlled with: Compression and gauze Patient tolerated procedure: Patient tolerated procedure well - Additional Wound Wound debrided: Lateral LLE ulcer Laterality: Left Type of Debridement: Excisional debridement Anesthesia Used: 5% Lidocaine Gel Depth: in the subcutaneous layer Percentage of wound debrided: 100 Instrument Used: 5mm curette Tissue Removed: Slough and devitalized tissue Severity: Fat Layer Exposed Amount of bleeding with debridement: Mild Bleeding Controlled with: Compression and gauze Patient tolerated procedure: Patient tolerated procedure well Assessment/Plan Active Problems (Last Reviewed 06/08/19 @ 13:17 by Diana Kovacs) PVD (peripheral vascular disease) (Chronic) Ulcer of left lower extremity with fat layer exposed (Chronic) Chronic ulcer of left heel (Chronic) Ulcer of right lower extremity with fat layer exposed (Chronic) 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 Ulcer of right lateral ankle. 2. Ulcer of left lateral leg. 3. Ulcer of left heel (plantar to posterior aspect). 4. DM type 2. 5. Wheelchair bound due to paraplegia. 6. PVD Plan: Debridement performed today in clinic. Melgisorb Ag applied. Given the duration of the wound and failure of the wound to respond to standard wound care, we have reapplied for advanced skin substitutes-- pending. At home wound-care instructions: Continue daily dressing change with calcium alginate with silver. Apply nurse's hat to heel. May shower. Remove dressing prior to showering, and replace with a clean dressing following shower. Avoid soaking or submersion of wounds. Compression: Double Tubigrip's applied today in clinic. Will await results of ABIs to further determine compression--rescheduled for 08/23/2019. Off-loading: Avoid pressure to right lateral foot, left heel, and left lateral lower extremity. Keep feet elevated as much as possible, at or above waist level. Avoid prolonged dangling of legs. Diet: Patient encouraged to increase protein and vitamin C intake while taking caution to avoid high carbohydrate and/or sugar intake. Labs/cultures/imaging: Recent labs and previous records reviewed. Vascular studies ordered--rescheduled for 08/23/2019. Follow-up: Return to clinic in 1 week for re-evaluation. Return sooner or report to the emergency room should symptoms worsen, or new symptoms arise. Note: [employer] speech recognition solar pv installer software was used to create portions of this document. Sound-alike and misspelled words, as well as other solar pv installer errors may be contained in the documentation. Code Visit 111xxx-113xx: 65404 Mylene subq tissue 20 sq cm/<
== END 2019-08-19 23:59 ==
LOC: WC 13:30
PROVIDERS: Family Provider Internal Medicine; PCP Internal Medicine; Referring Provider Nurse Practitioner Family; Visit Provider Nurse Practitioner Family
DX: E11.621 Type 2 diabetes mellitus with foot ulcer (principal); E11.622 Type 2 diabetes mellitus with other skin ulcer; L97.422 Non-pressure chronic ulcer of left heel and midfoot with fat layer exposed; L97.822 Non-pressure chronic ulcer of other part of left lower leg with fat layer exposed; L97.312 Non-pressure chronic ulcer of right ankle with fat layer exposed; Z99.3 Dependence on wheelchair; G82.20 Paraplegia, unspecified; E11.51 Type 2 diabetes mellitus with diabetic peripheral angiopathy without gangrene
CPT/HCPCS: 11042; 11045

== ENCOUNTER → 2019-08-31 11:59 | Outpatient (CLI) | payer MEDICARE, OTHER, SELFPAY ==
[2019-08-16 13:34] VITALS: BMI 44.7
[2019-08-31 12:02] LABS: Mucous, Urine 0 SEEN /hpf (<or=2+); Red Blood Cells-Urine 0 SEEN /hpf (0-5)
[2019-08-31 14:15] LABS: Absolute Lymphocyte Count 1.45 X10^3/uL (0.83-4.51); Absolute Neutrophil Count 5.2 X10^3/uL (2.0-7.7); Basophil# 0.02 X10^3/uL; Basophil% 0.3 % (0-1); Hematocrit 45.8 % (40-54); Hemoglobin 14.5 g/dL (13.0-16.5); Lymphocyte # 1.45 X10^3/ul (4.0); Lymphocyte % 19.5 % (19-41); Mean Corp Hgb Conc 31.7 g/dL (32-36); Mean Corpuscular Hgb 27.4 pg (27.0-32.0); Mean Corpuscular Volume 86.6 fL (80-94); Mean Platelet Vol. 12.1 fl (6.2-12.0); Monocyte% 9.4 % (0-10); NRBC Flagged by Analyzer 0 % (0-5); Neutrophil # 5.24 X10^3/uL (2.7-7.7); Neutrophil % 70.5 % (47-70); Platelet Count 213 K/mm3 (150-450); RBC Distribution Width CV 14.5 % (11.6-14.6); RBC Distribution Width SD 46.3 fl (35.1-43.9); Red Blood Count 5.29 M/mm3 (4.6-6.2); White Blood Count 7.4 K/mm3 (4.4-11.0)
[2019-08-31 14:26] LABS: ALB/GLOB Ratio 0.7 RATIO (0.9-2.4); AST(SGOT) 37 U/L (15-37); Alanine Aminotransfer ALT/SGPT 82 U/L (16-61); Albumin, Serum 3.1 g/dL (3.2-5.0); Alkaline Phosphatase 128 U/L (45-117); Anion Gap 7 (5-15); BUN 6 mg/dL (7-18); BUN/Creat Ratio 14.4 RATIO (10-20); Calcium,Total 8.1 mg/dL (8.5-10.1); Chloride 101 mmol/L (98-107); Creatinine, Serum 0.42 mg/dL (0.70-1.30); EST Glomerular Filtration Rate 245 mL/min (>60); Est Glom Filt Rate - Afr Amer 297 mL/min (>60); Globulin 4.3 g/dL (2.2-4.2); Glucose 174 mg/dL (74-106); Potassium 3.7 mmol/L (3.5-5.1); Protein, Total 7.4 g/dL (6.4-8.2); Sodium Level 135 mmol/L (136-145)
[2019-08-31 14:31] LABS: Color, Urine Yellow (Yellow); Glucose, Dipstick 100 mg/dl (Normal); Ketone-Dipstick Negative (Negative); Leukocyte Esterase-Dipstick 100 /ul (Negative); Nitrite-Dipstick Negative (Negative); Occult Blood-Urine 25 /ul (Negative); Protein-Dipstick Negative (Negative); Urine Bilirubin Dipstick Negative (Negative); Urine Clarity Sl. Cloudy (Clear); Urine Urobilinogen Normal (Normal)
[2019-08-31 14:41] LABS: Bacteria 1+ /hpf (None Seen); Squamous Epithelial Cells - UA 0-5 SEEN /hpf (0-5); White Blood Cells 0-5 SEEN /hpf (0-5)
== END ==
PROVIDERS: PCP Internal Medicine; Referring Provider Nurse Practitioner Family; Visit Provider Nurse Practitioner Family
DX: A41.9 Sepsis, unspecified organism (principal); R65.20 Severe sepsis without septic shock; N12 Tubulo-interstitial nephritis, not specified as acute or chronic; R50.9 Fever, unspecified
CPT/HCPCS: 36415; 80053; 81001; 85025; 86140; 87086; 87088

== ENCOUNTER 2019-09-13 13:45 | Outpatient (RCR) | payer MEDICARE, OTHER, SELFPAY ==
[2019-08-20 00:42] VITALS: BP 155/82; PULSE 107; RESP 16; TEMP 36.2
[2019-09-13 13:49] VITALS: BP 144/91; PULSE 122; RESP 16; TEMP 36.6; BMI 44.7
--- NOTE | 2019-09-13 17:13 | PCM.WC.PN ---
(1) Diabetic foot ulcer associated with type 2 diabetes mellitus, with fat layer exposed Status: Chronic Current Visit: Yes Qualifiers: Diabetic foot ulcer location: heel Laterality: left Qualified Code(s): E11.621 - Type 2 diabetes mellitus with foot ulcer; L97.422 - Non-pressure chronic ulcer of left heel and midfoot with fat layer exposed Code(s): E11.621 - Type 2 diabetes mellitus with foot ulcer; L97.502 - Non-pressure chronic ulcer of other part of unspecified foot with fat layer exposed (2) Diabetic ulcer of ankle associated with type 2 diabetes mellitus, with fat layer exposed Status: Chronic Current Visit: Yes Code(s): E11.622 - Type 2 diabetes mellitus with other skin ulcer; L97.302 - Non-pressure chronic ulcer of unspecified ankle with fat layer exposed (3) Diabetic ulcer of lower leg associated with type 2 diabetes mellitus, with fat layer exposed Status: Chronic Current Visit: Yes Code(s): E11.622 - Type 2 diabetes mellitus with other skin ulcer; L97.902 - Non-pressure chronic ulcer of unspecified part of unspecified lower leg with fat layer exposed (4) Chronic ulcer of left heel Status: Chronic Current Visit: Yes Qualifiers: Non-pressure ulcer stage: with fat layer exposed Qualified Code(s): L97.422 - Non-pressure chronic ulcer of left heel and midfoot with fat layer exposed Code(s): L97.429 - Non-pressure chronic ulcer of left heel and midfoot with unspecified severity (5) PVD (peripheral vascular disease) Status: Chronic Current Visit: Yes Code(s): I73.9 - Peripheral vascular disease, unspecified (6) 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 Current Visit: No (7) Type 2 diabetes mellitus Status: Chronic Current Visit: No Qualifiers: Diabetes mellitus nursing home insulin use: without nursing home use Code(s): E11.9 - Type 2 diabetes mellitus without complications (8) Ulcer of left lower extremity with fat layer exposed Status: Chronic Current Visit: Yes Code(s): L97.922 - Non-pressure chronic ulcer of unspecified part of left lower leg with fat layer exposed (9) Ulcer of right lower extremity with fat layer exposed Status: Chronic Current Visit: Yes Code(s): L97.912 - Non-pressure chronic ulcer of unspecified part of right lower leg with fat layer exposed Type of Wound Date of Service: 09/13/19 Chief Complaint: Ulcer on left plantar heel, left posterior heel, left lateral leg and right lateral ankle. History of Wound: Patient is 34 year old male who is wheel chair bound, paraplegic. He was formerly being managed by Mallory [facility] NP[facility]. However due to changes in providers' schedules, he is now under my care. He is independent in his ADL's. He has a history of Type 2 DM, last A1C 7.8%. He has obtained these ulcers over the past 6-9 months by trauma. He states he bumps his legs/feet/ankles and the trauma causes an ulcer. He has been seen at both our wound healing center and [facility]'s in [place] in the past for previous uclers. The only wound care he had been doing is washing them with Dakins solution that he had left over from [facility]. He was previously approved for Apligraf, and received 2 applications. He came in for the third placement of Apligraf but there was not one available. He was switched back to using silver to ulcers, and wearing Tubigrip. The patient denies any fever, chills, nausea, vomiting, or diarrhea. Denies any signs of infection, including increasing pain, redness, swelling, or drainage from affected area. Patient reports that 1-2 weeks ago he accidentally hit his left plantar heel wound against his wheelchair, causing it to break open and bleed. Aside from this incident, patient reports his wounds have remained stable. Progress of Wound: This is patient's first follow-up visit since 08/16/2019. Patient has been placed on a complex care plan due to issues with compliance in regards to follow-up and completing ordered testing. Complex care plan was discussed with patient at today's visit (09/13/2019), and patient is in agreement with complex care plan. Patient reports compliance with daily calcium silver alginate dressing changes. He reports he has been wearing compression while working (double Tubigrip), and trying to keep his feet elevated as much as possible when resting. The patient denies any fever, chills, nausea, vomiting, or diarrhea. Denies any signs of infection, including increasing pain, redness, swelling, or foul-smelling/purulent drainage from affected areas. He has not yet had his vascular studies completed, states he will call to re-schedule these. - Physical Exam Vital Signs Temp Pulse Resp BP 97.8 F 122 H 16 144/91 H 09/13/19 13:49 09/13/19 13:49 09/13/19 13:49 09/13/19 13:49 General: Alert, Oriented x3, Cooperative, No apparent distress HEENT: Atraumatic, EOMI, Normocephalic Oral: Moist Mucosa Neck: Supple, No JVD, Trachea Midline Lungs: Normal air movement Cardiovascular: Regular rate Extremities: No clubbing, No cyanosis, Capillary Refill Less than 3 Seconds, Edema - 1+ pitting edema of left lower extremity. 2+ pitting edema of right lower extremity, primarily in ankle. Right lateral ankle ulcer, left lateral lower extremity ulcer, left plantar heel ulcer, all with subcutaneous tissue exposed. No surrounding erythema, swelling, warmth, purulent or foul-smelling drainage from any of the ulcers. No undermining, tunneling, or probing to bone of any of the patient's ulcers. Patient does have a large blood blister of new onset, superior to his left heel ulcer., Peripheral Pulses Normal Wound Measurements and Assessment WC - Nurse 1 - General Ulcer Measurement Start: 09/13/19 08:59 Freq: Status: Active Protocol: Activity Type Activity Date Activity User E-Sign Co-Sign Detail Recorded Client Recorded Date Recorded By Document 09/13/19 13:49 [facility] [id number] 09/13/19 14:02 [facility] 09/13/19 13:49 [facility] Nurse 1 [Ulcer Assessment] #6- R LAT FOOT -Current Size (cm) - Length 1.2 -Current Size (cm) - Width 0.8 -Current Size (cm) - Depth 0.3 -Total Square Cm 0.96 -Photo Taken Yes -Exudate Amt Small -Exudate Type Serosanguineous -Wound Margin Distinct, Outline Attached -Granulation Amt Large (67-100%) -Granulation Quality Red -Necrosis Amt Small (1-33%) -Necrotic Tissue Type Adherent Slough -Texture (Temi-wound Skin Appearance) Scarring -Moisture (Temi-wound Skin Appearance Maceration ) -Color (Temi-wound Skin Appearance) No Abnormality -Temperature (Temi-wound Skin No Abnormality Appearance) (Pt Warm) -Tenderness on Palpation (Temi-wound No Skin Appearance) -Ulcer Cleansing Rinsed/ Irrigated with Saline -Foul Odor after Cleansing No -Anesthetic Used 4% Lidocaine Solution #5- L HEEL PLANTAR cluster -Current Size (cm) - Length 2.4 -Current Size (cm) - Width 1.5 -Current Size (cm) - Depth 0.3 -Total Square Cm 3.60 -Photo Taken Yes -Exudate Amt Small -Exudate Type Serosanguineous -Wound Margin Distinct, Outline Attached -Granulation Amt Large (67-100%) -Granulation Quality Red -Necrosis Amt Medium (34-66%) -Necrotic Tissue Type Adherent Slough -Structure Exposed N/A -Texture (Temi-wound Skin Appearance) Scarring -Moisture (Temi-wound Skin Appearance Dry/Scaly ) -Color (Temi-wound Skin Appearance) Erythema -Temperature (Temi-wound Skin No Abnormality Appearance) (Pt Warm) -Tenderness on Palpation (Temi-wound No Skin Appearance) -Ulcer Cleansing Rinsed/ Irrigated with Saline -Foul Odor after Cleansing No -Anesthetic Used 4% Lidocaine Solution #3- Lateral LLE -Current Size (cm) - Length 1.5 -Current Size (cm) - Width 0.6 -Current Size (cm) - Depth 0.3 -Total Square Cm 0.90 -Photo Taken Yes -Exudate Amt Small -Exudate Type Serosanguineous -Wound Margin Distinct, Outline Attached -Granulation Amt Large (67-100%) -Granulation Quality Red -Necrosis Amt None Present (0 %) -Structure Exposed N/A -Texture (Temi-wound Skin Appearance) Scarring -Moisture (Temi-wound Skin Appearance Dry/Scaly ) -Color (Temi-wound Skin Appearance) No Abnormality -Temperature (Temi-wound Skin No Abnormality Appearance) (Pt Warm) -Tenderness on Palpation (Temi-wound No Skin Appearance) -Ulcer Cleansing Rinsed/ Irrigated with Saline -Foul Odor after Cleansing No -Anesthetic Used 4% Lidocaine Solution [Edema Assessment] -Lower Limb Edema Present Yes -Right Calf (cm) 40.7 -Right Ankle (cm) 26 -Left Calf (cm) 39.9 -Left Ankle (cm) 26.6 WC - Nurse 2 - General Ulcer CM Notes Start: 09/13/19 08:59 Freq: Status: Active Protocol: Activity Type Activity Date Activity User E-Sign Co-Sign Detail Recorded Client Recorded Date Recorded By Document 09/13/19 17:02 DV [id number] 09/13/19 17:11 DV 09/13/19 17:02 Wound Center Nurse 2 [Procedure/Treatment] #6- R LAT FOOT -Time 17:02 -Correct Patient Yes -Correct Side, Site, Position Yes -Correct Procedure Yes -Procedure Performed Yes -Type of Procedure Debridement -Clinical Debridement Subcutaneous -Post Debridement Size (cm) - Length 1.5 -Post Debridement Size (cm) - Width 0.6 -Post Debridement Size (cm) - Depth 0.3 -Total Square Cm 0.90 -Wound/Ulcer Outcome Not Healed -Ulcer Cleansing Rinsed/ Irrigated with Saline -Foul Odor after Cleansing No -Bioengineered Tissue No -Bleeding Controlled with Pressure -Offloading No -Treatment Response Procedure Tolerated Well #5- L HEEL PLANTAR cluster -Time 17:03 -Correct Patient Yes -Correct Side, Site, Position Yes -Correct Procedure Yes -Procedure Performed Yes -Type of Procedure Debridement -Clinical Debridement Subcutaneous -Post Debridement Size (cm) - Length 2.5 -Post Debridement Size (cm) - Width 1.7 -Post Debridement Size (cm) - Depth 0.3 -Total Square Cm 4.25 -Wound/Ulcer Outcome Not Healed -Ulcer Cleansing Rinsed/ Irrigated with Saline -Foul Odor after Cleansing No -Bioengineered Tissue No -Bleeding Controlled with Pressure -Treatment Response Procedure Tolerated Well #3- Lateral LLE -Time 17:03 -Correct Patient Yes -Correct Side, Site, Position Yes -Correct Procedure Yes -Procedure Performed Yes -Type of Procedure Debridement -Clinical Debridement Subcutaneous -Post Debridement Size (cm) - Length 1.3 -Post Debridement Size (cm) - Width 0.9 -Post Debridement Size (cm) - Depth 0.3 -Total Square Cm 1.17 -Wound/Ulcer Outcome Not Healed -Ulcer Cleansing Rinsed/ Irrigated with Saline -Foul Odor after Cleansing No -Bioengineered Tissue No -Bleeding Controlled with Pressure -Offloading No -Treatment Response Procedure Tolerated Well [See Physician Procedure note for Specifics] Pain Scale: 0-10 Numeric [Pain] -Is Patient Pain Free? Yes Musculoskeletal: - - Paraplegia, no sensation in bilateral lower extremities. Neurological: - - Paraplegia, no sensation in bilateral lower extremities. Wheelchair-bound Psych/Mental Status: Normal Affect, Appropriate Debridement Note Post-Debridement Measurements/Treatment WC - Nurse 2 - General Ulcer CM Notes Start: 09/13/19 08:59 Freq: Status: Active Protocol: Activity Type Activity Date Activity User E-Sign Co-Sign Detail Recorded Client Recorded Date Recorded By Document 09/13/19 17:02 DV [id number] 09/13/19 17:11 DV 09/13/19 17:02 Wound Center Nurse 2 #6- R LAT FOOT -Time 17:02 -Correct Patient Yes -Correct Side, Site, Position Yes -Correct Procedure Yes -Procedure Performed Yes -Type of Procedure Debridement -Clinical Debridement Subcutaneous -Post Debridement Size (cm) - Length 1.5 -Post Debridement Size (cm) - Width 0.6 -Post Debridement Size (cm) - Depth 0.3 -Total Square Cm 0.90 -Wound/Ulcer Outcome Not Healed -Ulcer Cleansing Rinsed/ Irrigated with Saline -Foul Odor after Cleansing No -Bioengineered Tissue No -Bleeding Controlled with Pressure -Offloading No -Treatment Response Procedure Tolerated Well #5- L HEEL PLANTAR cluster -Time 17:03 -Correct Patient Yes -Correct Side, Site, Position Yes -Correct Procedure Yes -Procedure Performed Yes -Type of Procedure Debridement -Clinical Debridement Subcutaneous -Post Debridement Size (cm) - Length 2.5 -Post Debridement Size (cm) - Width 1.7 -Post Debridement Size (cm) - Depth 0.3 -Total Square Cm 4.25 -Wound/Ulcer Outcome Not Healed -Ulcer Cleansing Rinsed/ Irrigated with Saline -Foul Odor after Cleansing No -Bioengineered Tissue No -Bleeding Controlled with Pressure -Treatment Response Procedure Tolerated Well #3- Lateral LLE -Time 17:03 -Correct Patient Yes -Correct Side, Site, Position Yes -Correct Procedure Yes -Procedure Performed Yes -Type of Procedure Debridement -Clinical Debridement Subcutaneous -Post Debridement Size (cm) - Length 1.3 -Post Debridement Size (cm) - Width 0.9 -Post Debridement Size (cm) - Depth 0.3 -Total Square Cm 1.17 -Wound/Ulcer Outcome Not Healed -Ulcer Cleansing Rinsed/ Irrigated with Saline -Foul Odor after Cleansing No -Bioengineered Tissue No -Bleeding Controlled with Pressure -Offloading No -Treatment Response Procedure Tolerated Well Pain Scale: 0-10 Numeric Is Patient Pain Free? Yes Wound debrided: Right lateral ankle Laterality: Right Wound Grade/Stage: Grade 1 Type of Debridement: Excisional debridement Anesthesia Used: 5% Lidocaine Gel Depth: in the subcutaneous layer Percentage of wound debrided: 100 Instrument Used: 5mm curette Tissue Removed: Slough and devitalized tissue Severity: Fat Layer Exposed Amount of bleeding with debridement: Mild Bleeding Controlled with: Pressure Patient tolerated procedure well - Additional Wound Wound debrided: Left heel plantar Laterality: Left Wound Grade/Stage: Grade 1 Type of Debridement: Excisional debridement Anesthesia Used: 5% Lidocaine Gel Depth: in the subcutaneous layer Percentage of wound debrided: 100 Instrument Used: 7mm curette Tissue Removed: Slough and devitalized tissue Severity: Fat Layer Exposed Amount of bleeding with debridement: Mild Bleeding Controlled with: Pressure Patient tolerated procedure: Patient tolerated procedure well - Additional Wound Wound debrided: Lateral left lower extremity ulcer Laterality: Left Type of Debridement: Excisional debridement Anesthesia Used: 5% Lidocaine Gel Depth: in the subcutaneous layer Percentage of wound debrided: 100 Instrument Used: 5mm curette Tissue Removed: Slough and devitalized tissue Severity: Fat Layer Exposed Amount of bleeding with debridement: Mild Bleeding Controlled with: Compression and gauze Patient tolerated procedure: Patient tolerated procedure well Assessment/Plan Active Problems (Last Reviewed 08/31/19 @ 11:13 by Jazmín Alves) Diabetic ulcer of lower leg associated with type 2 diabetes mellitus, with fat layer exposed (Chronic) Diabetic ulcer of ankle associated with type 2 diabetes mellitus, with fat layer exposed (Chronic) Diabetic foot ulcer associated with type 2 diabetes mellitus, with fat layer exposed (Chronic) PVD (peripheral vascular disease) (Chronic) Ulcer of left lower extremity with fat layer exposed (Chronic) Chronic ulcer of left heel (Chronic) Ulcer of right lower extremity with fat layer exposed (Chronic) Assessment: 1. Ulcer of right lateral ankle. 2. Ulcer of left lateral leg. 3. Ulcer of left heel (plantar to posterior aspect). 4. DM type 2. 5. Wheelchair bound due to paraplegia. 6. PVD Plan: Patient placed on complex care plan d/t noncompliance with follow-up and orders; discussed with patient at today's visit, 09/13/2019. Debridement performed today in clinic as annotated above. Melgisorb Ag applied. Given the duration of the wound and failure of the wound to respond to standard wound care, we have reapplied for advanced skin substitutes--patient was approved for AmnioExcel and Primatrix, however, he declines these products today, stating he would like to contact his insurance company to discuss his [id number] cost first. At home wound-care instructions: Continue daily dressing change with calcium alginate with silver. Apply nurse's hat to heel. Do not pop blood blister of left heel. May shower. Wash temi-ulcer areas with mild soap and water and rinse well. Remove dressing prior to showering, and replace with a clean dressing following shower. Avoid soaking or submersion of wounds. Compression: Double Tubigrip's applied today in clinic. Will await results of ABIs to further determine compression-- patient to call to reschedule. Off-loading: Avoid pressure to right lateral ankle, left heel, and left lateral lower extremity ulcers. Keep feet elevated as much as possible, at or above waist level. Avoid prolonged dangling of legs. Diet: Patient encouraged to increase protein and vitamin C intake while taking caution to avoid high carbohydrate and/or sugar intake. Labs/cultures/imaging: Recent labs and previous records reviewed. Vascular studies ordered--patient is to reschedule testing. Follow-up: Return to clinic Thursday09/23/19 for re-evaluation. Return sooner or report to the emergency room should symptoms worsen, or new symptoms arise. Note: The [employer] speech recognition stretcher leveler operator helper software was used to create portions of this document. Sound-alike and misspelled words, as well as other stretcher leveler operator helper errors may be contained in the documentation. Code Visit 111xxx-113xx: [id number] Mylene subq tissue 20 sq cm/<
== END 2019-09-17 23:59 ==
LOC: WC 13:45
PROVIDERS: Family Provider Internal Medicine; PCP Internal Medicine; Referring Provider Nurse Practitioner Family; Visit Provider Nurse Practitioner Family
DX: E11.621 Type 2 diabetes mellitus with foot ulcer (principal); L97.422 Non-pressure chronic ulcer of left heel and midfoot with fat layer exposed; E11.622 Type 2 diabetes mellitus with other skin ulcer; L97.822 Non-pressure chronic ulcer of other part of left lower leg with fat layer exposed; L97.312 Non-pressure chronic ulcer of right ankle with fat layer exposed; E11.51 Type 2 diabetes mellitus with diabetic peripheral angiopathy without gangrene; G82.20 Paraplegia, unspecified; Z99.3 Dependence on wheelchair
CPT/HCPCS: 11042

== ENCOUNTER 2019-09-23 08:51 | Outpatient (RCR) | payer MEDICARE, OTHER, SELFPAY ==
[2019-09-18 00:33] VITALS: BP 144/91; PULSE 122; RESP 16; TEMP 36.6
== END 2019-10-18 23:59 ==
LOC: WC 08:51
PROVIDERS: Family Provider Internal Medicine; PCP Internal Medicine; Referring Provider Nurse Practitioner Family; Visit Provider Nurse Practitioner Family
DX: Z09 Encounter for follow-up examination after completed treatment for conditions other than malignant neoplasm (principal)

== ENCOUNTER 2019-09-28 21:05 | Inpatient (IN) | payer MEDICARE, OTHER, SELFPAY ==
[2019-09-28 21:06] VITALS: BP 130/94; PULSE 132; RESP 19; TEMP 37.8; O2SAT 96; BMI 38.6
[2019-09-28 21:35] VITALS: PULSE 113; RESP 24; O2SAT 94
--- NOTE | 2019-09-28 21:36 | CT_ITS ---
STUDY: CT ABDOMEN AND PELVIS WITHOUT CONTRAST REASON FOR EXAM: Male, 34 years old. FEVER, PENNY, BACK ACHE, ABD PAIN X 3 WEEKS. KIDNEY STONE RADIATION DOSAGE (If Supplied By Facility): CTDIvol = ( 31.02 ) mGy, DLP = ( 1697.24 ) mGycm TECHNIQUE: Transaxial images were obtained from the dome of the diaphragm to the symphysis pubis without oral contrast, and without intravenous contrast. Sagittal and coronal images were reconstructed. Individualized dose optimization techniques were used for this CT. COMPARISON: January 13, 2019. FINDINGS: The visualized lung bases are unremarkable. The visualized portions of the heart are within normal limits. The liver is enlarged fatty infiltrated without mass or bile duct dilatation. Contracted thick-walled gallbladder without calcified stones possibly physiologic however if concern for gallbladder disease ultrasound recommended borderline splenomegaly. Normal pancreas. Normal bilateral adrenal glands. Normal right kidney. Normal left kidney. Normal visualized stomach. Small lipomatous density within the post bulbar duodenum Nonspecific colonic distention with diffuse to hypertension.. The appendix is visualized and appears normal. Minor atherosclerotic changes of the aorta without evidence for aneurysm. Normal inferior vena cava. Normal retroperitoneum. Incompletely distended thick-walled bladder of indeterminate etiology although may be consistent with cystitis. Clinical correlation is recommended this regard. Normal abdominal wall. Lumbar spine demonstrates mild spondylosis. There is a fluid density mass with phlegmonous changes in the right gluteal cleft and perianal region which may be consistent with bedsore and perianal abscess. There is associated precoccygeal soft tissue thickening and osteomyelitis cannot be excluded. The right gluteal cleft abscess is a new finding since prior exam CT/Abdomen/Pelvis without Cont IMPRESSION: Perianal soft tissue thickening with associated fluid collection in the right gluteal cleft possibly representing an abscess. There is also precoccygeal soft tissue thickening and possibility of coexisting osteomyelitis cannot be excluded. MRI would be useful for further evaluation in this regard if clinically warranted Other findings as above Electronically Signed: Mao Mclean MD at 22:46 EDT , Service support ,
--- NOTE | 2019-09-28 21:38 | RAD_ITS ---
STUDY: X-RAY CHEST REASON FOR EXAM: Male, 34 years old. fever with back pain TECHNIQUE: AP portable COMPARISON: January 13, 2019. FINDINGS: The lungs are clear and expanded. There is blunting of the costophrenic sulci likely representing pleural thickening. Cannot exclude tiny pleural effusion. Normal size heart. Normal mediastinum and sean. Normal visualized pulmonary arteries. Normal visualized aortic arch and descending thoracic aorta. Dorsal spine demonstrates scoliosis and degenerative change. Normal visualized ribs, clavicles, and shoulders. There is no demonstrated abnormality of the visualized soft tissue structures of the upper abdomen. RAD/Chest 1 View (Portable) IMPRESSION: Probable chronic pleural thickening at the lung bases.. No acute cardiopulmonary pathology Electronically Signed: Mao Mclean MD at 21:56 EDT , Service support ,
[2019-09-28 22:15] LABS: Absolute Lymphocyte Count 2.35 X10^3/uL (0.83-4.51); Absolute Neutrophil Count 13.3 X10^3/uL (2.0-7.7); Basophil# 0.05 X10^3/uL; Basophil% 0.3 % (0-1); Eosinophil# 0.26 X10^3/uL; Eosinophils% 1.5 % (0-5); Hematocrit 41.5 % (40-54); Hemoglobin 13.5 g/dL (13.0-16.5); Lymphocyte # 2.35 X10^3/ul (4.0); Lymphocyte % 13.7 % (19-41); Mean Corp Hgb Conc 32.5 g/dL (32-36); Mean Corpuscular Hgb 27.9 pg (27.0-32.0); Mean Corpuscular Volume 85.7 fL (80-94); Mean Platelet Vol. 11.1 fl (6.2-12.0); Monocyte# 1.14 X10^3/uL; Monocyte% 6.6 % (0-10); NRBC Flagged by Analyzer 0 % (0-5); Neutrophil # 13.27 X10^3/uL (2.7-7.7); Neutrophil % 77.4 % (47-70); Platelet Count 270 K/mm3 (150-450); RBC Distribution Width CV 14.7 % (11.6-14.6); RBC Distribution Width SD 46.2 fl (35.1-43.9); Red Blood Count 4.84 M/mm3 (4.6-6.2); White Blood Count 17.2 K/mm3 (4.4-11.0)
[2019-09-28 22:23] LABS: International Normalized Ratio 1.2; Prothrombin Time (Protime)PT. 14.9 SECONDS (11.7-14.9)
[2019-09-28 22:24] LABS: Partial Thromboplast Time 27.7 Seconds (24.1-36.2)
[2019-09-28 22:31] LABS: ALB/GLOB Ratio 0.6 RATIO (0.9-2.4); AST(SGOT) 27 U/L (15-37); Alanine Aminotransfer ALT/SGPT 83 U/L (16-61); Albumin, Serum 2.9 g/dL (3.2-5.0); Alkaline Phosphatase 157 U/L (45-117); Anion Gap 12 (5-15); BUN 12 mg/dL (7-18); BUN/Creat Ratio 17.6 RATIO (10-20); Calcium,Total 8.5 mg/dL (8.5-10.1); Chloride 99 mmol/L (98-107); Creatinine, Serum 0.68 mg/dL (0.70-1.30); EST Glomerular Filtration Rate 139 mL/min (>60); Est Glom Filt Rate - Afr Amer 169 mL/min (>60); Estimated Creatinine Clearance 164.84 ml/min; Glucose 254 mg/dL (74-106); Potassium 3.9 mmol/L (3.5-5.1); Protein, Total 7.9 g/dL (6.4-8.2); Sodium Level 133 mmol/L (136-145)
[2019-09-28 22:46] LABS: Lactic Acid 4.8 mmol/L (0.4-1.9)
--- NOTE | 2019-09-28 22:49 | RAD_ITS ---
STUDY: X-RAY - LEFT FOOT CLINICAL: Male, 34 years old. BILATERAL FOOT SORES WITH FEVER TECHNIQUE: 3 view(s) of the foot. COMPARISON: None. FINDINGS: Normal talus, calcaneus, and tarsal bones. Normal visualized subtalar, talonavicular, calcaneocuboid, tarsal and tarsometatarsal articulations. Normal metatarsi. Normal metatarsophalangeal joint of the great toe. Normal tibial and fibular sesamoid bones. Normal interphalangeal joint of the great toe. Normal phalanges of the great toe. Normal second through fifth metatarsophalangeal joints. Normal interphalangeal joints and phalanges of the lesser toes. Soft tissue swelling of the foot. No subcutaneous emphysema. RAD/Foot min 3 Views IMPRESSION: Soft tissue swelling of the foot. Electronically Signed: Lenny Bowling DO at 23:41 EDT Tel [phone], Service support ,
[2019-09-28 22:55] LABS: Bacteria 0 SEEN /hpf (None Seen); Mucous, Urine 0 SEEN /hpf (<or=2+)
[2019-09-28 22:57] LABS: Color, Urine Yellow (Yellow); Glucose, Dipstick 100 mg/dl (Normal); Ketone-Dipstick 15 mg/dl (Negative); Leukocyte Esterase-Dipstick 500 /ul (Negative); Nitrite-Dipstick Negative (Negative); Occult Blood-Urine 50 /ul (Negative); Protein-Dipstick 30 mg/dl (Negative); Urine Bilirubin Dipstick 3 mg/dL (Negative); Urine Clarity Cloudy (Clear); Urine Urobilinogen 4 mg/dl (Normal)
[2019-09-28] MEDS: 0.9% Normal Saline 1,000 ML 999 ML IV (23:01)
[2019-09-28 23:04] LABS: White Blood Cells 50-100 SEEN /hpf (0-5)
[2019-09-28 23:05] LABS: Red Blood Cells-Urine 0-5 SEEN /hpf (0-5)
[2019-09-28 23:06] LABS: Squamous Epithelial Cells - UA 5-10 SEEN /hpf (0-5)
[2019-09-28 23:15] VITALS: BP 127/80; PULSE 114; RESP 26; TEMP 36.7; O2SAT 94
--- NOTE | 2019-09-28 23:16 | RAD_ITS ---
STUDY: X-RAY - RIGHT FOOT CLINICAL: Male, 34 years old. BILATERAL FOOT SORES WITH FEVER TECHNIQUE: 3 view(s) of the foot. COMPARISON: None. FINDINGS: Normal talus, calcaneus, and tarsal bones. Normal visualized subtalar, talonavicular, calcaneocuboid, tarsal and tarsometatarsal articulations. Normal metatarsi. Normal metatarsophalangeal joint of the great toe. Normal tibial and fibular sesamoid bones. Normal interphalangeal joint of the great toe. Normal phalanges of the great toe. Normal second through fifth metatarsophalangeal joints. Normal interphalangeal joints and phalanges of the lesser toes. Soft tissue swelling. RAD/Foot min 3 Views IMPRESSION: Soft tissue swelling of the foot. Electronically Signed: Lenny Bowling DO at 23:40 EDT Tel [phone], Service support ,
[2019-09-28 23:17] VITALS: BP 148/79; PULSE 113; RESP 24; TEMP 36.7; O2SAT 94; BMI 38.6
[2019-09-28 23:20] LABS: Erythrocyte Sedimentation Rate 105 mm/hr (0-15)
--- NOTE | 2019-09-28 23:23 | HP.PCM_ITS ---
Problem List (1) Septic shock Status: Acute (2) Gluteal abscess Status: Acute (3) PVD (peripheral vascular disease) Status: Chronic (4) Chronic ulcer of left heel Status: Chronic Qualifiers: Non-pressure ulcer stage: with fat layer exposed Qualified Code(s): L97.422 - Non-pressure chronic ulcer of left heel and midfoot with fat layer exposed (5) Type 2 diabetes mellitus Status: Chronic Qualifiers: Diabetes mellitus supervisor intermediates insulin use: without fci use Diabetes mellitus complication status: with other specified complication Qualified Code(s): E11.69 - Type 2 diabetes mellitus with other specified complication (6) Paralysis Status: Chronic (7) Cavernous hemangioma Status: Chronic Comment: 10/2009 (8) High blood pressure Status: Chronic Qualifiers: Hypertension type: essential hypertension Qualified Code(s): I10 - Essential (primary) hypertension (9) 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 The patient is a 34 y/o M w/ PMHx: Obesity, Diabetes mellitus type II, HTN, HLD, Hx Cavernous Hemangioma 10/2009 w/ paraplegia secondary to spinal lesion w/ Chronic self-catheterization ~ 6x daily, Former Tobacco use who presents to the [facility] ED on 09/28/19 with history of fevers, headache, back ache and ongoing generalized abdominal pain, dull aching with intermittent R sided abdominal shooting sharp pains with pain varying in rating from 3-10/10 in severity x 3 weeks with initially noted PCP evaluation with concern for pyelonephritis/UTI at that time with treatment with cipro w/ 08/31/19 UCx however <10,000 GPC, possibly enterococcal; however, ongoing and worsening. Patient has been following with the [facility] for chronic wounds to the buttock regions as well as his heels and LE. He has been recommended to have ischial pressure sore debridement prior and per report has declined despite recommendations. Work-up in the ED included T 100.1, heart rate initially 132 with improvement to 114, BP 130/94, respiratory rate 19, 96% on room air, CBC with WBC 17.2, hemoglobin 13.5, platelet 270 with left shift, unremarkable coags, CMP with sodium 133, BUN/creatinine 12/0.68, glucose 254, lactic acid 4.8, AST/ALT 27/83, alk phos 157, CRP 167, ESR 105, urinalysis with specific raphe 1.020, protein 30, glucose 100, ketone 15, occult blood 50, negative nitrite, bilirubin 3, urobilinogen 5, cassette esterase 500, WBCs 50- 100, squamous epithelial cells 5-10, no urine bacteria, chest x-ray with probable chronic pleural thickening at the lung bases with no acute cardiopulmonary findings, CT abdomen and pelvis with a perianal soft tissue thickening with associated fluid collection in the right gluteal cleft likely banking representative of an abscess as well as a pre-coccygeal soft tissue thickening and possibly coexisting osteomyelitis, plain film of the right and left foot with soft tissue swelling with no obvious evidence of osteomyelitis. In the ED patient administered Vancomycin and Meropenem. Past Medical History Past Medical History (Chronic Problems): Chronic Problems (Last Reviewed 08/31/19 @ 11:13 by Jazmín Alves) Diabetic ulcer of lower leg associated with type 2 diabetes mellitus, with fat layer exposed (Chronic) Diabetic ulcer of ankle associated with type 2 diabetes mellitus, with fat layer exposed (Chronic) Diabetic foot ulcer associated with type 2 diabetes mellitus, with fat layer exposed (Chronic) PVD (peripheral vascular disease) (Chronic) Left leg cellulitis (Chronic) Ulcer of left lower extremity with fat layer exposed (Chronic) Chronic ulcer of left heel (Chronic) Diarrhea (Chronic) Ulcer of right lower extremity with fat layer exposed (Chronic) Sebaceous cyst (Chronic) of right hoahaoism involving very lateral eyebrow Swelling, mass, or lump on face (Chronic) Type 2 diabetes mellitus (Chronic) Hypersomnolence (Chronic) Urinary incontinence (Chronic) Lower limb ulcer (Chronic) Paralysis (Chronic) Cavernous hemangioma (Chronic) 10/2009 High blood pressure (Chronic) Diabetes (Chronic) 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) Medical History: Medical History (Last Reviewed 08/31/19 @ 11:13 by Jazmín Alves) Paralysis (Chronic) G83.9 Blood infection (Resolved) A41.9 11/05 Cavernous hemangioma (Chronic) D18.00 10/2009 Recurrent infections (Acute) B99.9 High blood pressure (Chronic) I10 Diabetes (Chronic) E11.9 UTI (urinary tract infection) (Resolved) N39.0 Allergies amoxicillin Adverse Reaction (Verified 09/28/19 21:06) Diarrhea Home Medications: Ambulatory Orders Medication Instructions Recorded L.acidoph,Paracasei, B.lactis 1 ea PO DAILY 09/29/19 [Probiotic] Psyllium [Metamucil] 1 packet PO DAILY 09/29/19 Surgical History: - - Tonsillectomy. Psychiatric History: No pertinent psych hx Lives: Alone Smoking Status: Former smoker - Patient quit cigarette tobacco usage approximately 4 months prior to current presentation. Tobacco Use: Non-smoker Alcohol: None Drugs: None - *Family History Maternal Family History: Family History (Last Reviewed 08/31/19 @ 11:13 by Jazmín Alves) Mother Hypertension History Items: Hypertension Paternal Family History: Family History (Last Reviewed 08/31/19 @ 11:13 by Jazmín Alves) Mother Hypertension History Items: - - Denies any marketed paternal family history including heart disease, diabetes or cancer. Review of Systems Constitutional: Reports: Chills, Fever, Malaise, Weakness, Fatigue. Denies: Ano rexia, Weight Change HEENT: Denies: Head Aches, Sinus Congestion, Sinus Drainage Cardiovascular: Denies: Chest Pain, Palpitations Respiratory: Denies: Cough, Shortness of breath at rest, Sputum production Gastrointestinal: Reports: Abdominal Pain, Nausea. Denies: Vomiting Genitourinary: Reports: Retention. Denies: Dysuria Musculoskeletal: Denies: Joint Pain, Joint Tenderness Skin: Reports: Skin Changes, Wounds. Denies: Rash Neurological: Denies: Numbness, Tingling, Focal weakness Psychiatric: Denies: Anxiety, Depression, Homicidal Ideations, Suicidal Ideations Hematologic/ Lymphatic: Denies: Easy Bruising, Easy Bleeding VTE Information - Inpt Only VTE Present on Admission: No VTE Mechan Device Prophylaxis: SCD's VTE Pharm Prophylaxis ordered?: Yes Patient Problems: Active and Suspected Problems (Last Reviewed 08/31/19 @ 11:13 by Jazmín Alves) Septic shock (Acute) Gluteal abscess (Acute) Subjective: Laying in the ED bed, fatigued appearance, no acute distress. Objective: Physical Examination: General: awake, alert, oriented x 3 and cooperative, seated upright in the ED bed in no apparent distress. Skin: normal color, turgor, no icterus, cyanosis except noted ischial pressure sores, no obvious erythema or significant drainage however purulent foul- smelling, right lateral ankle chronic wound with no obvious drainage or acute infected appearance, left heel wound with mild discharge, not significantly foul-smelling and no erythema. HEENT: AT/NC, EOMI, PERRLA, dry MM, no carotid bruits or JVD noted; however, thickened neck makes examination difficult. Lungs: Distant breath sounds likely secondary to habitus, moderate effort, moderate decrease BL bases, no rales, ronchi or wheezing. Heart: Tachycardic with regular rhythm; no gallop, rub audible. Abdomen: soft, morbidly obese, NTTP despite abdominal pain complaints, ND, normal BS, unable to discern HSM secondary to morbidly obese habitus. Extremities: no cyanosis, clubbing, see skin. Neurological: patient awake, alert, oriented x 3; cognitive function appears baseline intact; pupils equally reactive to light and accomodation; cranial nerves II-XII grossly normal, paraplegic with a history of a T7 lesion, strength especially given acute presentation and underlying comorbidities with severe global decrease. Psychiatric: affect appears fatigued, no acute evidence of depressive or anxiety feelings. - Physical Exam Vitals/I&O's: Vital Signs Temp Pulse Resp BP Pulse Ox 98.0 F 114 H 26 H 127/80 H 94 09/28/19 23:15 09/28/19 23:15 09/28/19 23:15 09/28/19 23:15 09/28/19 23:15 Oxygen Delivery Method Room Air Weight: 285 lb Body Mass Index (BMI) 38.6 Laboratory Results 09/28/19 22:05: WBC 17.2 H, RBC 4.84, Hgb 13.5, Hct 41.5, MCV 85.7, MCH 27.9, MCHC 32.5, RDW Std Deviation 46.2 H, RDW Coeff of Darrell 14.7 H, Plt Count 270, MPV 11.1, Immature Gran % (Auto) 0.500, Neut % (Auto) 77.4 H, Lymph % (Auto) 13.7 L , [place] % (Auto) 6.6, Eos % (Auto) 1.5, Baso % (Auto) 0.3, Absolute Neuts (auto) 13.3 H, Absolute Lymphs (auto) 2.35, Nucleated RBC % 0 09/28/19 22:05: PT 14.9, INR 1.2, APTT 27.7 09/28/19 22:05: Sodium 133 L, Potassium 3.9, Chloride 99, Carbon Dioxide 22.0, Anion Gap 12, BUN 12, Creatinine 0.68 L, Estim Creat Clear Calc 164.84, Est GFR (MDRD) Af Amer 169, Est GFR (MDRD) Non-Af 139, BUN/Creatinine Ratio 17.6, Glucose 254 H, Calcium 8.5, Total Bilirubin 0.30, AST 27, ALT 83 H, Alkaline Phosphatase 157 H, Total Protein 7.9, Albumin 2.9 L, Globulin 5.0 H, Albumin/Globulin Ratio 0.6 L 09/28/19 22:05: Lactic Acid 4.8 H* 09/28/19 22:05: ESR 105 H 09/28/19 22:05: C-React Prot Ext Range 167.00 H 09/28/19 22:45: Urine Color Yellow, Urine Clarity Cloudy, Urine pH 5.0, Ur Specific [place] 1.020, Urine Protein 30 H, Urine Glucose (UA) 100 H, Urine Ketones 15 H, Urine Occult Blood 50 H, Urine Nitrite Negative, Urine Bilirubin 3 H, Urine Urobilinogen 4 H, Ur Leukocyte Esterase 500 H, Urine RBC 0-5 SEEN, Urine WBC 50-100 SEEN, Ur Squamous Epith Cells 5-10 SEEN, Urine Bacteria 0 SEEN, Urine Mucus 0 SEEN Current Medications Sodium Chloride () 1,000 mls @ 999 mls/hr IV .Q1H1M JAVAD; Protocol Stop: 09/29/19 01:42 Last Admin: 09/28/19 23:01 Dose: 999 mls/hr Documented by: Vancomycin HCl 2,000 mg/ (Sodium Chloride) 540 mls @ 250 mls/hr IV X1 ONE Stop: 09/29/19 01:14 Meropenem 1 gm/ Sodium (Chloride) 120 mls @ 200 mls/hr IV X1 ONE Stop: 09/28/19 23:44 Assessment/Plan All Active Problems (Last Reviewed 08/31/19 @ 11:13 by Jazmín Alves) Septic shock (Acute) Gluteal abscess (Acute) Severe sepsis (Acute) Blood infection (Resolved) Recurrent infections (Acute) UTI (urinary tract infection) (Resolved) Cellulitis of left lower extremity (Acute) Sepsis (Acute) Hyperglycemia (Acute) The patient is a 34 y/o M w/ PMHx: Obesity, Diabetes mellitus type II, HTN, HLD, Hx Cavernous Hemangioma 10/2009 w/ paraplegia secondary to spinal lesion w/ Chronic self-catheterization ~ 6x daily, Former Tobacco use who presents to the [facility] ED on 09/28/19 with history of fevers, headache, back ache and ongoing generalized abdominal pain, dull aching with intermittent R sided abdominal shooting sharp pains with pain varying in rating from 3-10/10 in severity x 3 weeks with initially noted PCP evaluation with concern for pyelonephritis/UTI at that time with treatment with cipro w/ 08/31/19 UCx however <10,000 GPC, possibly enterococcal; however, ongoing and worsening. 1. Acute Septic Shock secondary to BL gluteal abscesses and Possible coexisting osteomyelitis: Will admit patient to the ICU per facility protocol, maintain on cardiac monitoring, continue IVF bolus per protocol, admission CBC w/ WBC 17.2 w/ L shift, initial Lactic acid 4.8, continue to trend, maintain on IV abx regimen w/ vanc and meropenem given patient severe diarrhea associated he notes with amoxicillin therapy, Plastic Surgery Dr. Granados consulted with planned NPO status for consideration OR in AM given imaging findings. Bld Cx x 2 obtained in the ED and pending. ICU physician consulted, pending. 2. Acute on Chronic Left Heel Ulcer, Necrotic Appearing: Will consult Dr. Roth, wound RN, continue routine dressing changes pending their evaluation, plain film of the bilateral feet with no obvious osteomyelitis with evidence of edema, heel boots, off loading, on aggressive IV abx given #1. 3. Chronic Right Distal Leg Wound: Pending wound RN, continue routine dressing changes pending their evaluation, offloading, heel boots. 4. History of T7 Cavernous Hemangioma: History of T7 lesion, no surgical intervention per discussion with patient, paraplegia following, continue straight cath regimen per home regimen, fall precautions, frequent position changes, PT and OT consultations for passive range of motion and assessment as well as case management for discharge planning given acute presentation #1. 5. Diabetes mellitus type II: From current list not on regimen, refer most recent PCP visit patient on insulin glargine 10 unit subcu twice daily which will be continued pending clarification, hemoglobin A1c requested, n.p.o. status currently with every 6 hour Accu-Cheks and insulin sliding scale with need to transition once ADA diet allowed back to before meals and at bedtime, nutrition consulted for education and teaching. 6. Morbid Obesity: Weight loss and lifestyle changes encouraged, nutrition consulted. 7. Hypertension: Not on regimen per current list, need clarification, PRN IV hydralazine in interim. 8. Hyperlipidemia: Not on regimen per current list, need clarification. 9. DVT prophylaxis: SCDs, hold chemoprophylaxis given planned a.m. surgery, add once appropriate. 10. 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 Given his status encouraged consideration of setting these things up. Discussed CODE status at length including difference between FULL code, DNR-CCA and DNR-CC status. Following discussions about the differences in these status, requested Full Code status. Advanced Care Planning Face to Face Time: 16 minutes. Inpatient E&M: 31063 Init Hosp L3 Procedures: 71997 Advncd Care Plan 30 Min
[2019-09-29] VITALS (25 sets, daily range): BP systolic 105–168; BP diastolic 59–88; PULSE 101–126; RESP 18–93; TEMP 36.6–37.7; O2SAT 20–98; BMI 43.4; BMI 43.5
--- NOTE | 2019-09-29 00:29 | ED.DCSUM_ITS ---
- ER Visit Summary Date of Service: 09/29/19 Chief Complaint: Fever History of Present Illness: The patient is a [address] Andersen. Reports he has a fever that began 4 weeks ago. He was seen then and placed on Cipro for 1 week. There is no change. He has not had blood work and a UA that are negat tayo. Patient reports that fever seems to be worsening. The past 2 days temperatures been 101 degrees. Has had sweats. He denies a sore throat or cough. He reports that he has left flank pain that radiates into the left side of his abdomen. Denies any nausea, vomiting, or diarrhea. He self caths and has for the past 9 years. Reports that over the past week and there has been an odor in the urine has been cloudy. He also reports that he has decubitus ulcers and an ulcer on his left heel. States he has a headache that is 4-10 in severity. Physical Examination: Vitals: Stable. Afebrile. General: Well-nourished and well-developed. Head: Normocephalic atraumatic. Neck: Supple, no lymphadenopathy. No JVD. Nontender. Cardiovascular: Tachycardic regular rhythm. No murmurs. Respiratory: No respiratory distress. Clear to auscultation bilaterally. Abdominal: Soft, nontender, nondistended, normal bowel sounds. No guarding, rebound, or peritoneal signs. Back: Nontender. Extremities: Nontender, no edema. Skin: There is to the bottom of his gluteus muscles bilaterally there is a ulcer with a small amount of purulent drainage and odor. Just to the right of the top of his gluteal cleft there is a superficial ulcer and just inferior to this there is approximately 2 cm abscess. He has had necrotic tissue on the back of his left foot at the level of the calcaneus. There is purulent drainage from this. He has a healed ulcer on the lateral surface of his right foot.. Neurologic: Alert and oriented ?3. Cranial nerves II through XII are intact. Normal strength and sensation. Psych: Normal affect. Test Results: CBC shows white count of 17.2 with segmented for 77 lymphocytes 14. Sed rate is 105. CRP is 167. Lactic acid is 4.8. Chem-7 shows a sodium 133, glucose 254, creatinine 0.68. LFTs show an alk phos 157 and ALT of 83, albumin of 2.9, globulin 5.0. INR is 1.2. PTT is 27.7. Clinical Impression(s) from Imaging Studies Abdomen/Pelvis CT 09/28/19 21:36 IMPRESSION: Perianal soft tissue thickening with associated fluid collection in the right gluteal cleft possibly representing an abscess. There is also precoccygeal soft tissue thickening and possibility of coexisting osteomyelitis cannot be excluded. MRI would be useful for further evaluation in this regard if clinically warranted Other findings as above Electronically Signed: Mao Mclean MD at 22:46 EDT , Service support , Chest X-Ray 09/28/19 21:38 IMPRESSION: Probable chronic pleural thickening at the lung bases.. No acute cardiopulmonary pathology Electronically Signed: Mao Mclean MD at 21:56 EDT , Service support , Foot X-Ray 09/28/19 22:49 IMPRESSION: Soft tissue swelling of the foot. Electronically Signed: Lenny Bowling DO at 23:41 EDT Tel [phone], Service support , Foot X-Ray 09/28/19 23:16 IMPRESSION: Soft tissue swelling of the foot. Electronically Signed: Lenny Bowling DO at 23:40 EDT Tel [phone], Service support , Emergency Department Course and Treatment: Patient had an IV placed. He was given 30 cc/kg bolus of normal saline. He refused pain or nausea medications. He was given a dose of vancomycin IV. He has a penicillin allergy and was given meropenem IV for his decubitus ulcers. Treatment Plan: Patient was discussed with Dr. Suarez. He will be admitted to the ICU for further evaluation and treatment. Disposition: Admitted in serious condition. Impression: 1. Septic shock. 2. Decubitus ulcer. 3. Left heel ulcer. 4. UTI. 5. Critical care time 30 minutes. This note was generated with [employer] dictation software. It may contain incorrect words, spelling, and punctuation that were not noted in review of the chart prior to signing
[2019-09-29] MEDS: 0.9% Normal Saline 1,000 ML 999 ML IV ×4 (00:44→03:14)
[2019-09-29] MEDS: oxyCODONE 5 MG Tablet 10 MG PO (01:55)
[2019-09-29 01:58] LABS: Phosphorus 3.6 mg/dL (2.5-4.9)
[2019-09-29 02:07] LABS: Reflex Lactate? Y
--- NOTE | 2019-09-29 02:13 | PCM.RX.CS ---
Consult Pharmacy has been consulted to manage selected antiobiotic: Vancomycin Type of Consult: New start Suspected Infection: Sepsis Labs: Sodium 133 mmol/L (136-145) L 09/28/19 22:05 Potassium 3.9 mmol/L (3.5-5.1) 09/28/19 22:05 Chloride 99 mmol/L (98-107) 09/28/19 22:05 Carbon Dioxide 22.0 mmol/L (21.0-32.0) 09/28/19 22:05 Anion Gap 12 (5-15) 09/28/19 22:05 BUN 12 mg/dL (7-18) 09/28/19 22:05 Creatinine 0.68 mg/dL (0.70-1.30) L 09/28/19 22:05 Est GFR (MDRD) Af Amer 169 mL/min (>60) 09/28/19 22:05 Est GFR (MDRD) Non-Af 139 mL/min (>60) 09/28/19 22:05 BUN/Creatinine Ratio 17.6 RATIO (10-20) 09/28/19 22:05 Glucose 254 mg/dL (74-106) H 09/28/19 22:05 Weight used for dosin.4 kg Estimated Creatinine Clearance: 164 Goal Trough: 15-20 mcg/mL Pharmacy Plan for Drug Dosing: Pharmacy Service will continue to monitor and adjust dosing as required. Medications Vancomycin HCl 1,500 mg/ (Sodium Chloride) 530 mls @ 250 mls/hr IV Q8H JAVAD Discontinued Medications Vancomycin HCl 2,000 mg/ (Sodium Chloride) 540 mls @ 250 mls/hr IV X1 ONE Stop: 09/29/19 01:14 Last Admin: 09/29/19 01:30 Dose: 250 mls/hr Documented by: Follow-Up Labs: Trough Vancomycin Labs to be done on [date and time ordered]: 09/29 @ 0100
[2019-09-29 02:45] LABS: Absolute Lymphocyte Count 1.58 X10^3/uL (0.83-4.51); Absolute Neutrophil Count 14.3 X10^3/uL (2.0-7.7); Basophil# 0.06 X10^3/uL; Basophil% 0.3 % (0-1); Eosinophils% 1.1 % (0-5); Hematocrit 40.1 % (40-54); Hemoglobin 12.8 g/dL (13.0-16.5); Lymphocyte # 1.58 X10^3/ul (4.0); Mean Corp Hgb Conc 31.9 g/dL (32-36); Mean Corpuscular Hgb 27.9 pg (27.0-32.0); Mean Corpuscular Volume 87.6 fL (80-94); Mean Platelet Vol. 10.8 fl (6.2-12.0); Monocyte# 1.36 X10^3/uL; Monocyte% 7.7 % (0-10); NRBC Flagged by Analyzer 0 % (0-5); Neutrophil # 14.31 X10^3/uL (2.7-7.7); Neutrophil % 81.4 % (47-70); Platelet Count 239 K/mm3 (150-450); RBC Distribution Width CV 14.7 % (11.6-14.6); RBC Distribution Width SD 47.5 fl (35.1-43.9); Red Blood Count 4.58 M/mm3 (4.6-6.2); White Blood Count 17.6 K/mm3 (4.4-11.0)
[2019-09-29 02:52] LABS: International Normalized Ratio 1.3
[2019-09-29 03:06] LABS: Hemoglobin A1c 8.7 % (4.2-6.3)
[2019-09-29 03:12] LABS: Anion Gap 6 (5-15); BUN 9 mg/dL (7-18); BUN/Creat Ratio 21.1 RATIO (10-20); Calcium,Total 8.1 mg/dL (8.5-10.1); Chloride 102 mmol/L (98-107); Creatinine, Serum 0.43 mg/dL (0.70-1.30); EST Glomerular Filtration Rate 240 mL/min (>60); Est Glom Filt Rate - Afr Amer 290 mL/min (>60); Estimated Creatinine Clearance 260.67 ml/min; Glucose 196 mg/dL (74-106); Potassium 3.8 mmol/L (3.5-5.1); Sodium Level 133 mmol/L (136-145)
[2019-09-29] MEDS: 0.9% Normal Saline 1,000 ML 150 ML IV ×3 (03:45→21:42)
[2019-09-29] MEDS: Insulin Lispro 100 UNIT/ML INSULN.PEN SC ×3 (05:22→18:18)
[2019-09-29 05:26] LABS: Bedside Glucose 217 mg/dL (70-110)
--- NOTE | 2019-09-29 06:34 | CON.PCM_ITS ---
Reason for Consult Date of Consultation: 09/29/19 Reason for Consultation: Septic shock History of Present Illness: The patient is a 34-year-old male, with a history as outlined below, who presented to the emergency department on September 27 with complaints of headaches, fevers, chills and abdominal pain. The patient does have a history of paraplegia secondary to a spinal lesion and chronically self catheterizes. The patient was recently evaluated in the office of his primary care provider in August, at which time he did report the presence of abdominal pain. There was apparent concern for pyelonephritis, for which the patient was placed on ciprofloxacin. The patient is also chronically followed in the wound care center due to diabetic ulcers of his lower extremities. In addition to the aforementioned, the patient does have an established diagnosis of obstructive sleep apnea, for which it was recommended that he be placed on nocturnal BiPAP with a pressure support of 18/14. On presentation to the emergency department, the patient was noted to be febrile, tachycardic and tachypneic. Laboratory evaluation revealed an elevated white blood cell count to 17,000. INR was within normal limits. Chemistry profile was unremarkable. Initial lactate was elevated at 4.8. CT abdo men/pelvis revealed perianal soft tissue thickening with associated fluid collection in the right gluteal cleft, likely representing an abscess. There was note of possible coexisting osteomyelitis. Plain film chest x-ray revealed no acute cardiopulmonary process. The patient received supplemental IV fluid hydration and was started on broad-spectrum antimicrobials. He was subsequently admitted to the medical intensive care unit for further management. Overnight, the patient has remained hemodynamically stable. He is currently maintaining appropriate oxygen saturations on room air. Lactic acidemia has resolved. Past Medical History Past Medical History (Chronic Problems): Chronic Problems (Last Reviewed 08/31/19 @ 11:13 by Jazmín Alves) Paraplegia (Chronic) Pressure sore of left ischium, stage 3 (Chronic) Right ischial pressure sore, stage 3 (Chronic) Urinary incontinence, nocturnal enuresis (Chronic) Diabetic ulcer of lower leg associated with type 2 diabetes mellitus, with fat layer exposed (Chronic) Diabetic ulcer of ankle associated with type 2 diabetes mellitus, with fat layer exposed (Chronic) Diabetic foot ulcer associated with type 2 diabetes mellitus, with fat layer exposed (Chronic) PVD (peripheral vascular disease) (Chronic) Left leg cellulitis (Chronic) Ulcer of left lower extremity with fat layer exposed (Chronic) Chronic ulcer of left heel (Chronic) Diarrhea (Chronic) Ulcer of right lower extremity with fat layer exposed (Chronic) Sebaceous cyst (Chronic) of right latter-day involving very lateral eyebrow Swelling, mass, or lump on face (Chronic) Type 2 diabetes mellitus (Chronic) Hypersomnolence (Chronic) Urinary incontinence (Chronic) Lower limb ulcer (Chronic) Paralysis (Chronic) Cavernous hemangioma (Chronic) 10/2009 High blood pressure (Chronic) Diabetes (Chronic) 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) Medical History: Medical History (Last Reviewed 08/31/19 @ 11:13 by Jazmín Alves) Paralysis (Chronic) G83.9 Blood infection (Resolved) A41.9 11/05 Cavernous hemangioma (Chronic) D18.00 10/2009 Recurrent infections (Acute) B99.9 High blood pressure (Chronic) I10 Diabetes (Chronic) E11.9 UTI (urinary tract infection) (Resolved) N39.0 Allergies amoxicillin Adverse Reaction (Verified 09/28/19 21:06) Diarrhea Home Medications: Ambulatory Orders Medication Instructions Recorded L.acidoph,Paracasei, B.lactis 1 ea PO DAILY 09/29/19 [Probiotic] Psyllium [Metamucil] 1 packet PO DAILY 09/29/19 Surgical History: - - Tonsillectomy. Psychiatric History: No pertinent psych hx Lives: Alone Smoking Status: Former smoker - Patient quit cigarette tobacco usage approximately 4 months prior to current presentation. Tobacco Use: Non-smoker Alcohol: None Drugs: None - *Family History Maternal Family History: Family History (Last Reviewed 08/31/19 @ 11:13 by Jazmín Alves) Mother Hypertension History Items: Hypertension Paternal Family History: Family History (Last Reviewed 08/31/19 @ 11:13 by Jazmín Alves) Mother Hypertension History Items: - - Denies any marketed paternal family history including heart disease, diabetes or cancer. Review of Systems Constitutional: Reports: Fever. Denies: Chills Eyes: Denies: Blurred vision, Double vision HEENT: Denies: Head Aches, Sinus Congestion, Sinus Drainage Cardiovascular: Denies: Chest Pain, Palpitations Respiratory: Denies: Cough, Shortness of breath at rest, Sputum production Gastrointestinal: Reports: Abdominal Pain Genitourinary: Denies: Dysuria Musculoskeletal: Denies: Joint Pain, Joint Tenderness Skin: Reports: Wounds Neurological: Reports: Headaches Psychiatric: Denies: Anxiety, Depression, Homicidal Ideations, Suicidal Ideations Hematologic/ Lymphatic: Reports: Anemia Patient Problems: Active and Suspected Problems (Last Reviewed 08/31/19 @ 11:13 by Jazmín Alves) Septic shock (Acute) Gluteal abscess (Acute) Objective: The patient's most recent lab work, culture data and imaging studies have all been personally reviewed. - Physical Exam Vitals/I&O's: Vital Signs Temp Pulse Resp BP Pulse Ox 98.9 F 114 H 23 H 136/69 H 97 09/29/19 06:00 09/29/19 06:00 09/29/19 06:00 09/29/19 06:00 09/29/19 06:00 Oxygen Delivery Method Room Air Weight: 320 lb 8.834 oz Body Mass Index (BMI) 43.4 Intake and Output for Last 24 Hours 09/27/19 09/28/19 09/29/19 23:59 23:59 23:59 Intake Total 5062.05 / 5062.05 Balance 5062.05 / 5062.05 General: Alert, Cooperative, No apparent distress, - - Morbidly obese HEENT: Atraumatic, Normocephalic Oral: No Gingival or Mucosal Lesions/ Ulcerations Neck: Supple, No Nodes, Trachea Midline Lungs: No rhonchi, No wheeze, No rales, Diminished Cardiovascular: Normal S1, Normal S2, No murmurs, Tachycardic Abdomen: Bowel Sounds Present, Soft, Non Tender, Obese Extremities: No clubbing, No cyanosis Skin: Ulcer/ Wound - Present on admission Musculoskeletal: No Muscle Wasting Lymphatic: No Cervical, Supraclavicular, or Inguinal Adenopathy Neurological: - - No focal deficits. Patient with baseline paraplegia. Psych/Mental Status: Normal Affect, Appropriate Labs (Last 48 Hours) 09/28/19 09/28/19 09/28/19 22:05 22:05 22:05 WBC 17.2 H RBC 4.84 Hgb 13.5 Hct 41.5 MCV 85.7 MCH 27.9 MCHC 32.5 RDW Std Deviation 46.2 H RDW Coeff of Darrell 14.7 H Plt Count 270 MPV 11.1 Immature Gran % (Auto) 0.500 Neut % (Auto) 77.4 H Lymph % (Auto) 13.7 L Rawlins % (Auto) 6.6 Eos % (Auto) 1.5 Baso % (Auto) 0.3 Absolute Neuts (auto) 13.3 H Absolute Lymphs (auto) 2.35 Nucleated RBC % 0 ESR PT 14.9 INR 1.2 APTT 27.7 Sodium 133 L Potassium 3.9 Chloride 99 Carbon Dioxide 22.0 Anion Gap 12 BUN 12 Creatinine 0.68 L Estim Creat Clear Calc 164.84 Est GFR (MDRD) Af Amer 169 Est GFR (MDRD) Non-Af 139 BUN/Creatinine Ratio 17.6 Glucose 254 H Hemoglobin A1c Lactic Acid Calcium 8.5 Phosphorus Magnesium Total Bilirubin 0.30 AST 27 ALT 83 H Alkaline Phosphatase 157 H C-React Prot Ext Range Total Protein 7.9 Albumin 2.9 L Globulin 5.0 H Albumin/Globulin Ratio 0.6 L Urine Color Urine Clarity Urine pH Ur Specific Traer Urine Protein Urine Glucose (UA) Urine Ketones Urine Occult Blood Urine Nitrite Urine Bilirubin Urine Urobilinogen Ur Leukocyte Esterase Urine RBC Urine WBC Ur Squamous Epith Cells Urine Bacteria Urine Mucus POC Glucose 09/28/19 09/28/19 09/28/19 22:05 22:05 22:05 WBC RBC Hgb Hct MCV MCH MCHC RDW Std Deviation RDW Coeff of Darrell Plt Count MPV Immature Gran % (Auto) Neut % (Auto) Lymph % (Auto) Rawlins % (Auto) Eos % (Auto) Baso % (Auto) Absolute Neuts (auto) Absolute Lymphs (auto) Nucleated RBC % ESR 105 H PT INR APTT Sodium Potassium Chloride Carbon Dioxide Anion Gap BUN Creatinine Estim Creat Clear Calc Est GFR (MDRD) Af Amer Est GFR (MDRD) Non-Af BUN/Creatinine Ratio Glucose Hemoglobin A1c Lactic Acid 4.8 H* Calcium Phosphorus Magnesium Total Bilirubin AST ALT Alkaline Phosphatase C-React Prot Ext Range 167.00 H Total Protein Albumin Globulin Albumin/Globulin Ratio Urine Color Urine Clarity Urine pH Ur Specific Traer Urine Protein Urine Glucose (UA) Urine Ketones Urine Occult Blood Urine Nitrite Urine Bilirubin Urine Urobilinogen Ur Leukocyte Esterase Urine RBC Urine WBC Ur Squamous Epith Cells Urine Bacteria Urine Mucus POC Glucose 09/28/19 09/28/19 09/29/19 22:05 22:45 02:30 WBC RBC Hgb Hct MCV MCH MCHC RDW Std Deviation RDW Coeff of Darrell Plt Count MPV Immature Gran % (Auto) Neut % (Auto) Lymph % (Auto) Rawlins % (Auto) Eos % (Auto) Baso % (Auto) Absolute Neuts (auto) Absolute Lymphs (auto) Nucleated RBC % ESR PT INR APTT Sodium 133 L Potassium 3.8 Chloride 102 Carbon Dioxide 25.0 Anion Gap 6 BUN 9 Creatinine 0.43 L Estim Creat Clear Calc 260.67 Est GFR (MDRD) Af Amer 290 Est GFR (MDRD) Non-Af 240 BUN/Creatinine Ratio 21.1 H Glucose 196 H Hemoglobin A1c Lactic Acid Calcium 8.1 L Phosphorus 3.6 Magnesium 2.0 Total Bilirubin AST ALT Alkaline Phosphatase C-React Prot Ext Range Total Protein Albumin Globulin Albumin/Globulin Ratio Urine Color Yellow Urine Clarity Cloudy Urine pH 5.0 Ur Specific Traer 1.020 Urine Protein 30 H Urine Glucose (UA) 100 H Urine Ketones 15 H Urine Occult Blood 50 H Urine Nitrite Negative Urine Bilirubin 3 H Urine Urobilinogen 4 H Ur Leukocyte Esterase 500 H Urine RBC 0-5 SEEN Urine WBC 50-100 SEEN Ur Squamous Epith Cells 5-10 SEEN Urine Bacteria 0 SEEN Urine Mucus 0 SEEN POC Glucose 09/29/19 09/29/19 09/29/19 02:30 02:30 02:30 WBC 17.6 H RBC 4.58 L Hgb 12.8 L Hct 40.1 MCV 87.6 MCH 27.9 MCHC 31.9 L RDW Std Deviation 47.5 H RDW Coeff of Darrell 14.7 H Plt Count 239 MPV 10.8 Immature Gran % (Auto) 0.500 Neut % (Auto) 81.4 H Lymph % (Auto) 9.0 L Rawlins % (Auto) 7.7 Eos % (Auto) 1.1 Baso % (Auto) 0.3 Absolute Neuts (auto) 14.3 H Absolute Lymphs (auto) 1.58 Nucleated RBC % 0 ESR PT 16.0 H INR 1.3 APTT 28.0 Sodium Potassium Chloride Carbon Dioxide Anion Gap BUN Creatinine Estim Creat Clear Calc Est GFR (MDRD) Af Amer Est GFR (MDRD) Non-Af BUN/Creatinine Ratio Glucose Hemoglobin A1c 8.7 H Lactic Acid Calcium Phosphorus Magnesium Total Bilirubin AST ALT Alkaline Phosphatase C-React Prot Ext Range Total Protein Albumin Globulin Albumin/Globulin Ratio Urine Color Urine Clarity Urine pH Ur Specific Traer Urine Protein Urine Glucose (UA) Urine Ketones Urine Occult Blood Urine Nitrite Urine Bilirubin Urine Urobilinogen Ur Leukocyte Esterase Urine RBC Urine WBC Ur Squamous Epith Cells Urine Bacteria Urine Mucus POC Glucose 09/29/19 09/29/19 02:30 05:19 WBC RBC Hgb Hct MCV MCH MCHC RDW Std Deviation RDW Coeff of Darrell Plt Count MPV Immature Gran % (Auto) Neut % (Auto) Lymph % (Auto) Rawlins % (Auto) Eos % (Auto) Baso % (Auto) Absolute Neuts (auto) Absolute Lymphs (auto) Nucleated RBC % ESR PT INR APTT Sodium Potassium Chloride Carbon Dioxide Anion Gap BUN Creatinine Estim Creat Clear Calc Est GFR (MDRD) Af Amer Est GFR (MDRD) Non-Af BUN/Creatinine Ratio Glucose Hemoglobin A1c Lactic Acid 1.0 Calcium Phosphorus Magnesium Total Bilirubin AST ALT Alkaline Phosphatase C-React Prot Ext Range Total Protein Albumin Globulin Albumin/Globulin Ratio Urine Color Urine Clarity Urine pH Ur Specific Traer Urine Protein Urine Glucose (UA) Urine Ketones Urine Occult Blood Urine Nitrite Urine Bilirubin Urine Urobilinogen Ur Leukocyte Esterase Urine RBC Urine WBC Ur Squamous Epith Cells Urine Bacteria Urine Mucus POC Glucose 217 H Clinical Impression(s) from Imaging Studies Abdomen/Pelvis CT 09/28/19 21:36 IMPRESSION: Perianal soft tissue thickening with associated fluid collection in the right gluteal cleft possibly representing an abscess. There is also precoccygeal soft tissue thickening and possibility of coexisting osteomyelitis cannot be excluded. MRI would be useful for further evaluation in this regard if clinically warranted Other findings as above Electronically Signed: Mao Mclean MD at 22:46 EDT , Service support , Chest X-Ray 09/28/19 21:38 IMPRESSION: Probable chronic pleural thickening at the lung bases.. No acute cardiopulmonary pathology Electronically Signed: Mao Mclean MD at 21:56 EDT , Service support , Foot X-Ray 09/28/19 22:49 IMPRESSION: Soft tissue swelling of the foot. Electronically Signed: Lenny Bowling DO at 23:41 EDT Tel [phone], Service support , Foot X-Ray 09/28/19 23:16 IMPRESSION: Soft tissue swelling of the foot. Electronically Signed: Lennyfernando Bowling DO at 23:40 EDT Tel [phone], Service support , Current Medications Acetaminophen (Tylenol) 650 mg PO Q6H PRN PRN PRN Reason: Pain Score 1-10/Temp > 100.7 F Al Hydroxide/Mg Hydroxide (Mylanta Ii) 30 ml PO Q6H PRN PRN PRN Reason: Gastric Burning Albuterol Sulfate (Ventolin Aerosols) 2.5 mg INHALATION Q2H PRN PRN PRN Reason: SOB/Wheezing Famotidine (Pepcid) 20 mg PO BID JAVAD Glucagon () 1 mg IM .X1 PRN PRN Reason: Hypoglycemia Glucagon () 1 mg IM .X1 PRN PRN Reason: Hypoglycemia Guaifenesin (Robitussin) 10 ml PO Q4H PRN PRN PRN Reason: COUGH Sodium Chloride () 1,000 mls @ 150 mls/hr IV .Q6H40M [facility] Last Admin: 09/29/19 03:45 Dose: 150 mls/hr Documented by: Meropenem 1 gm/ Sodium (Chloride) 120 mls @ 33 mls/hr IV Q8 [facility] Last Admin: 09/29/19 05:10 Dose: 33 mls/hr Documented by: Vancomycin IV Pharmacy to Dose (1 ea/ Sodium Chloride) 500 mls @ 250 mls/hr IV X1 PRN; Protocol PRN Reason: Rx to Dose Sodium Chloride () 250 mls @ 15 mls/hr IV .[id number] PRN PRN Reason: Saline Flush Sodium Chloride () 250 mls @ 15 mls/hr IV .[id number] PRN PRN Reason: Additional IVPB Infusion Dextrose (Dextrose 10%-Water) 250 mls @ 999 mls/hr IV .Q16M PRN; Protocol PRN Reason: HYPOGLYCEMIA Vancomycin HCl 1,500 mg/ (Sodium Chloride) 530 mls @ 250 mls/hr IV Q8H [facility] Insulin Glargine (Lantus (Bkc)) 10 units SC BID [facility] Insulin Human Lispro (Humalog Kwikpen (Bkc)) 0 unit SC Q6 [facility]; Protocol Last Admin: 09/29/19 05:22 Dose: 2 units Documented by: Lactobacillus Acidophilus (Acidophilus) 2 tablet PO TID [facility] Last Admin: 09/29/19 05:13 Dose: 2 tablet Documented by: Magnesium Hydroxide (Milk Of Magnesia) 30 ml PO DAILY PRN PRN PRN Reason: Constipation Melatonin (Melatonin) 3 mg PO QHS PRN PRN PRN Reason: INSOMNIA Morphine Sulfate () 4 mg IV Q3H PRN PRN PRN Reason: Pain Score 6-10/10 Nitroglycerin (Nitrostat) 0.4 mg SUBLINGUAL Q5M PRN PRN Reason: CARDIAC/CHEST PAIN Ondansetron HCl (Zofran) 4 mg IV Q8H PRN PRN PRN Reason: NAUSEA/VOMITING Oxycodone HCl (Oxyir) 10 mg PO Q4H PRN PRN PRN Reason: Pain Score 4-5/10 Last Admin: 09/29/19 01:55 Dose: 10 mg Documented by: Prochlorperazine Edisylate (Compazine Iv) 5 mg IV Q4H PRN PRN PRN Reason: Breakthrough Nausea/Vomiting Psyllium Hydrophilic Mucilloid (Metamucil) 1 packet PO DAILY [facility] Senna/Docusate Sodium (Senokot-S, Temi-Colace) 2 tablet PO BID PRN PRN PRN Reason: Constipation Sodium Chloride () 10 - 40 ml IV UD PRN PRN Reason: SALINE FLUSH Throat Lozenges (Cepacol Sore Throat Lozenge) 1 lozenge MUCOUS MEM Q2H PRN PRN PRN Reason: SORE THROAT Assessment/Plan Active and Suspected Problems (Last Reviewed 08/31/19 @ 11:13 by Jazmín Alves) Septic shock (Acute) Gluteal abscess (Acute) RECOMMENDATIONS: 1. Continue broad-spectrum antimicrobial coverage, pending infectious work-up. 2. Surgical consultation is pending. 3. Encourage incentive spirometer use while in bed. 4. Continue local wound care. 5. Start nocturnal BiPAP 18/14. 6. The patient is medically stable for transfer out of the intensive care unit. Will sign off from a critical care perspective. IMPRESSIONS: 1. Septic shock Concern for underlying soft tissue infection with bilateral gluteal abscesses and possible underlying osteomyelitis. Consultation to surgery is currently pending. The patient has been adequately volume resuscitated and remains hemodynamically stable. Continue broad-spectrum antimicrobial coverage, pending infectious work-up. Lactic acidemia has resolved. 2. History of lower extremity diabetic ulcers The patient is currently followed in the wound care center. Continue local wound care accordingly. 3. History of obstructive sleep apnea Start nocturnal BiPAP therapy with a pressure support of 18/14. 4. Morbid obesity/hypertension/hyperlipidemia/diabetes mellitus Complicates care, management, recovery and prognosis. Continue home medications as indicated. This note was generated with [employer] dictation software. It may contain incorrect words, spelling, and punctuation that were not noted in checking the note before signing. Inpatient E&M: 61913 Init Hosp L3
--- NOTE | 2019-09-29 07:16 | PN_ITS ---
Patient Problems: Active and Suspected Problems (Last Reviewed 08/31/19 @ 11:13 by Jazmín Alves) Septic shock (Acute) Gluteal abscess (Acute) Reason for Visit: Septic shock secondary to gluteal abscess Subjective: Patient is a 34-year-old gentleman with multiple comorbidities including paraplegia, sacral decubitus wound with osteomyelitis admitted with generalized weakness and assessment of septic shock secondary to gluteal abscess made admitted to the intensive care unit for further management Objective: GENERAL: cooperative HEENT: Atraumatic; EYES; Anicteric, NECK; supple, normal thyroid, RESPIRATORY: Diminished to auscultation CARDIOVASCULAR: Regular S1 S2, GI: soft, normoactive bowel sounds, : No Renal angle tenderness; EXTREMITIES: Bilateral pedal edema with a left heel ulcer MUSCULOSKELETAL: no muscle waisting NEURO: Paraplegic SKIN: No Rash PSYCH; Flat affect Vitals/I&O's: Vital Signs Temp Pulse Resp BP Pulse Ox 98.9 F 114 H 23 H 136/69 H 97 09/29/19 06:00 09/29/19 06:00 09/29/19 06:00 09/29/19 06:00 09/29/19 06:00 Oxygen Delivery Method Room Air Weight: 145.4 kg Body Mass Index (BMI) 43.4 Intake and Output for Last 24 Hours 09/27/19 09/28/19 09/29/19 23:59 23:59 23:59 Intake Total 5062.05 / 5062.05 Balance 5062.05 / 5062.05 Laboratory Results 09/28/19 22:05: WBC 17.2 H, RBC 4.84, Hgb 13.5, Hct 41.5, MCV 85.7, MCH 27.9, MCHC 32.5, RDW Std Deviation 46.2 H, RDW Coeff of Darrell 14.7 H, Plt Count 270, MPV 11.1, Immature Gran % (Auto) 0.500, Neut % (Auto) 77.4 H, Lymph % (Auto) 13.7 L, Elk % (Auto) 6.6, Eos % (Auto) 1.5, Baso % (Auto) 0.3, Absolute Neuts (auto) 13.3 H, Absolute Lymphs (auto) 2.35, Nucleated RBC % 0 09/28/19 22:05: PT 14.9, INR 1.2, APTT 27.7 09/28/19 22:05: Sodium 133 L, Potassium 3.9, Chloride 99, Carbon Dioxide 22.0, Anion Gap 12, BUN 12, Creatinine 0.68 L, Estim Creat Clear Calc 164.84, Est GFR (MDRD) Af Amer 169, Est GFR (MDRD) Non-Af 139, BUN/Creatinine Ratio 17.6, Glucose 254 H, Calcium 8.5, Total Bilirubin 0.30, AST 27, ALT 83 H, Alkaline Phosphatase 157 H, Total Protein 7.9, Albumin 2.9 L, Globulin 5.0 H, Albumin/Globulin Ratio 0.6 L 09/28/19 22:05: Lactic Acid 4.8 H* 09/28/19 22:05: ESR 105 H 09/28/19 22:05: C-React Prot Ext Range 167.00 H 09/28/19 22:05: Phosphorus 3.6, Magnesium 2.0 09/28/19 22:45: Urine Color Yellow, Urine Clarity Cloudy, Urine pH 5.0, Ur Specific [place] 1.020, Urine Protein 30 H, Urine Glucose (UA) 100 H, Urine Ketones 15 H, Urine Occult Blood 50 H, Urine Nitrite Negative, Urine Bilirubin 3 H, Urine Urobilinogen 4 H, Ur Leukocyte Esterase 500 H, Urine RBC 0-5 SEEN, Urine WBC 50-100 SEEN, Ur Squamous Epith Cells 5-10 SEEN, Urine Bacteria 0 SEEN, Urine Mucus 0 SEEN 09/29/19 02:30: Sodium 133 L, Potassium 3.8, Chloride 102, Carbon Dioxide 25.0, Anion Gap 6, BUN 9, Creatinine 0.43 L, Estim Creat Clear Calc 260.67, Est GFR (MDRD) Af Amer 290, Est GFR (MDRD) Non-Af 240, BUN/Creatinine Ratio 21.1 H, Glucose 196 H, Calcium 8.1 L 09/29/19 02:30: WBC 17.6 H, RBC 4.58 L, Hgb 12.8 L, Hct 40.1, MCV 87.6, MCH 27.9, MCHC 31.9 L, RDW Std Deviation 47.5 H, RDW Coeff of Darrell 14.7 H, Plt Count 239, MPV 10.8, Immature Gran % (Auto) 0.500, Neut % (Auto) 81.4 H, Lymph % (Auto) 9.0 L, Elk % (Auto) 7.7, Eos % (Auto) 1.1, Baso % (Auto) 0.3, Absolute Neuts (auto) 14.3 H, Absolute Lymphs (auto) 1.58, Nucleated RBC % 0 09/29/19 02:30: PT 16.0 H, INR 1.3, APTT 28.0 09/29/19 02:30: Hemoglobin A1c 8.7 H 09/29/19 02:30: Lactic Acid 1.0 09/29/19 05:19: POC Glucose 217 H Current Medications Acetaminophen (Tylenol) 650 mg PO Q6H PRN PRN PRN Reason: Pain Score 1-10/Temp > 100.7 F Al Hydroxide/Mg Hydroxide (Mylanta Ii) 30 ml PO Q6H PRN PRN PRN Reason: Gastric Burning Albuterol Sulfate (Ventolin Aerosols) 2.5 mg INHALATION Q2H PRN PRN PRN Reason: SOB/Wheezing Famotidine (Pepcid) 20 mg PO BID [facility] Glucagon () 1 mg IM .X1 PRN PRN Reason: Hypoglycemia Glucagon () 1 mg IM .X1 PRN PRN Reason: Hypoglycemia Guaifenesin (Robitussin) 10 ml PO Q4H PRN PRN PRN Reason: COUGH Sodium Chloride () 1,000 mls @ 150 mls/hr IV .Q6H40M [facility] Last Admin: 09/29/19 03:45 Dose: 150 mls/hr Documented by: Meropenem 1 gm/ Sodium (Chloride) 120 mls @ 33 mls/hr IV Q8 [facility] Last Admin: 09/29/19 05:10 Dose: 33 mls/hr Documented by: Vancomycin IV Pharmacy to Dose (1 ea/ Sodium Chloride) 500 mls @ 250 mls/hr IV X1 PRN; Protocol PRN Reason: Rx to Dose Sodium Chloride () 250 mls @ 15 mls/hr IV .[id number] PRN PRN Reason: Saline Flush Sodium Chloride () 250 mls @ 15 mls/hr IV .[id number] PRN PRN Reason: Additional IVPB Infusion Dextrose (Dextrose 10%-Water) 250 mls @ 999 mls/hr IV .Q16M PRN; Protocol PRN Reason: HYPOGLYCEMIA Vancomycin HCl 1,500 mg/ (Sodium Chloride) 530 mls @ 250 mls/hr IV Q8H [facility] Insulin Glargine (Lantus (Bkc)) 10 units SC BID [facility] Insulin Human Lispro (Humalog Kwikpen (Bkc)) 0 unit SC Q6 [facility]; Protocol Last Admin: 09/29/19 05:22 Dose: 2 units Documented by: Lactobacillus Acidophilus (Acidophilus) 2 tablet PO TID [facility] Last Admin: 09/29/19 05:13 Dose: 2 tablet Documented by: Magnesium Hydroxide (Milk Of Magnesia) 30 ml PO DAILY PRN PRN PRN Reason: Constipation Melatonin (Melatonin) 3 mg PO QHS PRN PRN PRN Reason: INSOMNIA Morphine Sulfate () 4 mg IV Q3H PRN PRN PRN Reason: Pain Score 6-10/10 Nitroglycerin (Nitrostat) 0.4 mg SUBLINGUAL Q5M PRN PRN Reason: CARDIAC/CHEST PAIN Ondansetron HCl (Zofran) 4 mg IV Q8H PRN PRN PRN Reason: NAUSEA/VOMITING Oxycodone HCl (Oxyir) 10 mg PO Q4H PRN PRN PRN Reason: Pain Score 4-5/10 Last Admin: 09/29/19 01:55 Dose: 10 mg Documented by: Prochlorperazine Edisylate (Compazine Iv) 5 mg IV Q4H PRN PRN PRN Reason: Breakthrough Nausea/Vomiting Psyllium Hydrophilic Mucilloid (Metamucil) 1 packet PO DAILY [facility] Senna/Docusate Sodium (Senokot-S, Temi-Colace) 2 tablet PO BID PRN PRN PRN Reason: Constipation Sodium Chloride () 10 - 40 ml IV UD PRN PRN Reason: SALINE FLUSH Throat Lozenges (Cepacol Sore Throat Lozenge) 1 lozenge MUCOUS MEM Q2H PRN PRN PRN Reason: SORE THROAT STROKE Vital Signs/Narrative: Vital Signs Temp Pulse Resp BP Pulse Ox 09/29/19 06:00 98.9 F 114 H 23 H 136/69 H 97 09/29/19 05:00 126 H 93 H 152/83 H 20 09/29/19 04:00 99.8 F H 125 H 22 H 150/64 H 97 09/29/19 03:30 123 H 26 H 160/71 H 93 Medical Necessity - Tobacco Use Smoking Status: Former smoker - Patient quit cigarette tobacco usage approximately 4 months prior to current presentation. Tobacco Use: Non-smoker Assessment/Plan All Active Problems (Last Reviewed 08/31/19 @ 11:13 by Jazmín Alves) Septic shock (Acute) Gluteal abscess (Acute) Severe sepsis (Acute) Blood infection (Resolved) Recurrent infections (Acute) UTI (urinary tract infection) (Resolved) Cellulitis of left lower extremity (Acute) Sepsis (Acute) Hyperglycemia (Acute) Patient is a 34-year-old gentleman with multiple comorbidities including paraplegia, sacral decubitus wound with osteomyelitis admitted with generalized weakness and assessment of septic shock secondary to gluteal abscess made admitted to the intensive care unit for further management 1. Septic shock secondary to bilateral gluteal abscess -CT obtained on admission demonstrated Perianal soft tissue thickening with associated fluid collection in the right gluteal cleft possibly representing an abscess admitted to the intensive care unit managed with broad-spectrum antibiotic therapy with consultation placed to plastic surgery, infectious disease as well as lineman apprentice cultures were sent on admission following up on result 2. Necrotic left heel ulcer -Patient seen in consultation by Dr. Thacker with podiatry 3. Questionable osteomyelitis involving the pre-coccygeal region ?Ordered MRI as suggested to rule out underlying osteomyelitis 4. History of T7 cavernous hemangioma with subsequent paraplegia ?Supportive care. 5. Obesity BMI 43.5 -Weight loss advised 6. Essential hypertension -Patient antihypertensives placed on hold on admission in view of his low blood pressure 7. Diabetes mellitus type II - patient's oral hypoglycemics held. Placed on long acting insulin, Accu-Cheks a.c. and at bedtime and covered with sliding scale insulin 8. DVT prophylaxis -SC heparin Active Medications Acetaminophen (Tylenol) 650 mg PO Q6H PRN PRN PRN Reason: Pain Score 1-10/Temp > 100.7 F Al Hydroxide/Mg Hydroxide (Mylanta Ii) 30 ml PO Q6H PRN PRN PRN Reason: Gastric Burning Albuterol Sulfate (Ventolin Aerosols) 2.5 mg INHALATION Q2H PRN PRN PRN Reason: SOB/Wheezing Calamine/Phenol (Calmoseptine Ointment) 1 applic TOPICAL BID [facility]; Protocol Famotidine (Pepcid) 20 mg PO BID [facility] Last Admin: 09/29/19 10:44 Dose: 20 mg Documented by: Glucagon () 1 mg IM .X1 PRN PRN Reason: Hypoglycemia Guaifenesin (Robitussin) 10 ml PO Q4H PRN PRN PRN Reason: COUGH Sodium Chloride () 1,000 mls @ 150 mls/hr IV .Q6H40M [facility] Last Infusion: 09/29/19 12:48 Dose: 150 mls/hr Documented by: Meropenem 1 gm/ Sodium (Chloride) 120 mls @ 33 mls/hr IV Q8 [facility] Last Infusion: 09/29/19 08:49 Dose: Infused Documented by: Vancomycin IV Pharmacy to Dose (1 ea/ Sodium Chloride) 500 mls @ 250 mls/hr IV X1 PRN; Protocol PRN Reason: Rx to Dose Sodium Chloride () 250 mls @ 15 mls/hr IV .[id number] PRN PRN Reason: Saline Flush Sodium Chloride () 250 mls @ 15 mls/hr IV .[id number] PRN PRN Reason: Additional IVPB Infusion Dextrose (Dextrose 10%-Water) 250 mls @ 999 mls/hr IV .Q16M PRN; Protocol PRN Reason: HYPOGLYCEMIA Vancomycin HCl 1,500 mg/ (Sodium Chloride) 530 mls @ 250 mls/hr IV Q8H [facility] Last Infusion: 09/29/19 12:46 Dose: Infused Documented by: Insulin Glargine (Lantus ([facility])) 10 units SC BID [facility] Last Admin: 09/29/19 12:41 Dose: 10 units Documented by: Insulin Human Lispro (Humalog Kwikpen ([facility])) 0 unit SC Q6 [facility]; Protocol Last Admin: 09/29/19 12:40 Dose: 1 units Documented by: Lactobacillus Acidophilus (Acidophilus) 2 tablet PO TID [facility] Last Admin: 09/29/19 05:13 Dose: 2 tablet Documented by: Magnesium Hydroxide (Milk Of Magnesia) 30 ml PO DAILY PRN PRN PRN Reason: Constipation Melatonin (Melatonin) 3 mg PO QHS PRN PRN PRN Reason: INSOMNIA Morphine Sulfate () 4 mg IV Q3H PRN PRN PRN Reason: Pain Score 6-10/10 Nitroglycerin (Nitrostat) 0.4 mg SUBLINGUAL Q5M PRN PRN Reason: CARDIAC/CHEST PAIN Ondansetron HCl (Zofran) 4 mg IV Q8H PRN PRN PRN Reason: NAUSEA/VOMITING Oxycodone HCl (Oxyir) 10 mg PO Q4H PRN PRN PRN Reason: Pain Score 4-5/10 Last Admin: 09/29/19 01:55 Dose: 10 mg Documented by: Prochlorperazine Edisylate (Compazine Iv) 5 mg IV Q4H PRN PRN PRN Reason: Breakthrough Nausea/Vomiting Psyllium Hydrophilic Mucilloid (Metamucil) 1 packet PO DAILY [facility] Last Admin: 09/29/19 10:44 Dose: 1 packet Documented by: Senna/Docusate Sodium (Senokot-S, Temi-Colace) 2 tablet PO BID PRN PRN PRN Reason: Constipation Sodium Chloride () 10 - 40 ml IV UD PRN PRN Reason: SALINE FLUSH Throat Lozenges (Cepacol Sore Throat Lozenge) 1 lozenge MUCOUS MEM Q2H PRN PRN PRN Reason: SORE THROAT Clinical Impression(s) from Imaging Studies Abdomen/Pelvis CT 09/28/19 21:36 IMPRESSION: Perianal soft tissue thickening with associated fluid collection in the right gluteal cleft possibly representing an abscess. There is also precoccygeal soft tissue thickening and possibility of coexisting osteomyelitis cannot be excluded. MRI would be useful for further evaluation in this regard if clinically warranted Other findings as above Electronically Signed: Mao Mclean MD at 22:46 EDT , Service support , Chest X-Ray 09/28/19 21:38 IMPRESSION: Probable chronic pleural thickening at the lung bases.. No acute cardiopulmonary pathology Electronically Signed: Mao Mclean MD at 21:56 EDT , Service support , Foot X-Ray 09/28/19 22:49 IMPRESSION: Soft tissue swelling of the foot. Electronically Signed: Lenny Bowling DO at 23:41 EDT Tel [phone], Service support , Foot X-Ray 09/28/19 23:16 IMPRESSION: Soft tissue swelling of the foot. Electronically Signed: Lenny Bowling DO at 23:40 EDT Tel [phone], Service support , Inpatient E&M: [id number] Subs Hosp L3
--- NOTE | 2019-09-29 08:08 | NURSING ---
wound photo: right lateral ankle
--- NOTE | 2019-09-29 08:09 | NURSING ---
wound photo: left lateral lower leg
--- NOTE | 2019-09-29 08:10 | NURSING ---
wound photo: left heel
--- NOTE | 2019-09-29 08:15 | PCM.CONS.GEN ---
Reason for Consult History of Present Illness: The patient is a 34 year old male with multiple medical problems including diabetes and paraplegia, was seen today for heel ulceration and leg ulceration. He relates he has had these for long time, has been going to wound center. He relates he has foam heel protector boots at home but really does not use them. He admits to noncompliance/nonadherence. He has no pain to feet/leg, he relates he has no feeling in them. Patient also has gluteal ulceration/abscesses causing sepsis. He is resting comfortably in bed this morning. Past Medical History Past Medical History (Chronic Problems): Chronic Problems (Last Reviewed 08/31/19 @ 11:13 by Jazmín Alves) Paraplegia (Chronic) Pressure sore of left ischium, stage 3 (Chronic) Right ischial pressure sore, stage 3 (Chronic) Urinary incontinence, nocturnal enuresis (Chronic) Diabetic ulcer of lower leg associated with type 2 diabetes mellitus, with fat layer exposed (Chronic) Diabetic ulcer of ankle associated with type 2 diabetes mellitus, with fat layer exposed (Chronic) Diabetic foot ulcer associated with type 2 diabetes mellitus, with fat layer exposed (Chronic) PVD (peripheral vascular disease) (Chronic) Left leg cellulitis (Chronic) Ulcer of left lower extremity with fat layer exposed (Chronic) Chronic ulcer of left heel (Chronic) Diarrhea (Chronic) Ulcer of right lower extremity with fat layer exposed (Chronic) Sebaceous cyst (Chronic) of right judaism involving very lateral eyebrow Swelling, mass, or lump on face (Chronic) Type 2 diabetes mellitus (Chronic) Hypersomnolence (Chronic) Urinary incontinence (Chronic) Lower limb ulcer (Chronic) Paralysis (Chronic) Cavernous hemangioma (Chronic) 10/2009 High blood pressure (Chronic) Diabetes (Chronic) 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) Medical History: Medical History (Last Reviewed 08/31/19 @ 11:13 by Jazmín Alves) Paralysis (Chronic) G83.9 Blood infection (Resolved) A41.9 11/05 Cavernous hemangioma (Chronic) D18.00 10/2009 Recurrent infections (Acute) B99.9 High blood pressure (Chronic) I10 Diabetes (Chronic) E11.9 UTI (urinary tract infection) (Resolved) N39.0 Allergies amoxicillin Adverse Reaction (Verified 09/28/19 21:06) Diarrhea Home Medications: Ambulatory Orders Medication Instructions Recorded L.acidoph,Paracasei, B.lactis 1 ea PO DAILY 09/29/19 [Probiotic] Psyllium [Metamucil] 1 packet PO DAILY 09/29/19 Surgical History: - - Tonsillectomy. Psychiatric History: No pertinent psych hx Lives: Alone Smoking Status: Former smoker - Patient quit cigarette tobacco usage approximately 4 months prior to current presentation. Tobacco Use: Non-smoker Alcohol: None Drugs: None - *Family History Maternal Family History: Family History (Last Reviewed 08/31/19 @ 11:13 by Jazmín Alves) Mother Hypertension History Items: Hypertension Paternal Family History: Family History (Last Reviewed 08/31/19 @ 11:13 by Jazmín Alves) Mother Hypertension History Items: - - Denies any marketed paternal family history including heart disease, diabetes or cancer. Patient Problems: Active and Suspected Problems (Last Reviewed 08/31/19 @ 11:13 by Jazmín Alves) Septic shock (Acute) Gluteal abscess (Acute) - Physical Exam Vitals/I&O's: Vital Signs Temp Pulse Resp BP Pulse Ox 98.9 F 114 H 23 H 136/69 H 97 09/29/19 06:00 09/29/19 06:00 09/29/19 06:00 09/29/19 06:00 09/29/19 06:00 Oxygen Delivery Method Room Air Weight: 145.4 kg Body Mass Index (BMI) 43.4 Intake and Output for Last 24 Hours 09/27/19 09/28/19 09/29/19 23:59 23:59 23:59 Intake Total 5062.05 / 5062.05 Balance 5062.05 / 5062.05 General: Alert, Oriented x3, Cooperative, No apparent distress Extremities: Capillary Refill Less than 3 Seconds, No Calf Tenderness, Peripheral Pulses Normal, - - Open ulceration to the left heel with some nonviable HPK tissue to margins and base, down to subcutaneous tissue layer, no probe or exposed bone. There is ulceration to the lateral leg on the left side with granular base and viable margins. There is no open lesions on the right foot/ankle or leg. No evidence of infection to the foot/ankle or leg bilateral. Absent sensation to the foot/ankle bilateral and paralysis of the foot/ankle bilateral. No POP or pain on ROM to the foot or ankle bilateral. Psych/Mental Status: Appropriate, Alert and oriented to time, place, person, mood and affect Laboratory Results 09/28/19 22:05: WBC 17.2 H, RBC 4.84, Hgb 13.5, Hct 41.5, MCV 85.7, MCH 27.9, MCHC 32.5, RDW Std Deviation 46.2 H, RDW Coeff of Darrell 14.7 H, Plt Count 270, MPV 11.1, Immature Gran % (Auto) 0.500, Neut % (Auto) 77.4 H, Lymph % (Auto) 13.7 L, [place] % (Auto) 6.6, Eos % (Auto) 1.5, Baso % (Auto) 0.3, Absolute Neuts (auto) 13.3 H, Absolute Lymphs (auto) 2.35, Nucleated RBC % 0 09/28/19 22:05: PT 14.9, INR 1.2, APTT 27.7 09/28/19 22:05: Sodium 133 L, Potassium 3.9, Chloride 99, Carbon Dioxide 22.0, Anion Gap 12, BUN 12, Creatinine 0.68 L, Estim Creat Clear Calc 164.84, Est GFR (MDRD) Af Amer 169, Est GFR (MDRD) Non-Af 139, BUN/Creatinine Ratio 17.6, Glucose 254 H, Calcium 8.5, Total Bilirubin 0.30, AST 27, ALT 83 H, Alkaline Phosphatase 157 H, Total Protein 7.9, Albumin 2.9 L, Globulin 5.0 H, Albumin/Globulin Ratio 0.6 L 09/28/19 22:05: Lactic Acid 4.8 H* 09/28/19 22:05: ESR 105 H 09/28/19 22:05: C-React Prot Ext Range 167.00 H 09/28/19 22:05: Phosphorus 3.6, Magnesium 2.0 09/28/19 22:45: Urine Color Yellow, Urine Clarity Cloudy, Urine pH 5.0, Ur Specific [place] 1.020, Urine Protein 30 H, Urine Glucose (UA) 100 H, Urine Ketones 15 H, Urine Occult Blood 50 H, Urine Nitrite Negative, Urine Bilirubin 3 H, Urine Urobilinogen 4 H, Ur Leukocyte Esterase 500 H, Urine RBC 0-5 SEEN, Urine WBC 50-100 SEEN, Ur Squamous Epith Cells 5-10 SEEN, Urine Bacteria 0 SEEN, Urine Mucus 0 SEEN 09/29/19 02:30: Sodium 133 L, Potassium 3.8, Chloride 102, Carbon Dioxide 25.0, Anion Gap 6, BUN 9, Creatinine 0.43 L, Estim Creat Clear Calc 260.67, Est GFR (MDRD) Af Amer 290, Est GFR (MDRD) Non-Af 240, BUN/Creatinine Ratio 21.1 H, Glucose 196 H, Calcium 8.1 L 09/29/19 02:30: WBC 17.6 H, RBC 4.58 L, Hgb 12.8 L, Hct 40.1, MCV 87.6, MCH 27.9, MCHC 31.9 L, RDW Std Deviation 47.5 H, RDW Coeff of Darrell 14.7 H, Plt Count 239, MPV 10.8, Immature Gran % (Auto) 0.500, Neut % (Auto) 81.4 H, Lymph % (Auto) 9.0 L, [place] % (Auto) 7.7, Eos % (Auto) 1.1, Baso % (Auto) 0.3, Absolute Neuts (auto) 14.3 H, Absolute Lymphs (auto) 1.58, Nucleated RBC % 0 09/29/19 02:30: PT 16.0 H, INR 1.3, APTT 28.0 09/29/19 02:30: Hemoglobin A1c 8.7 H 09/29/19 02:30: Lactic Acid 1.0 09/29/19 05:19: POC Glucose 217 H Current Medications Acetaminophen (Tylenol) 650 mg PO Q6H PRN PRN PRN Reason: Pain Score 1-10/Temp > 100.7 F Al Hydroxide/Mg Hydroxide (Mylanta Ii) 30 ml PO Q6H PRN PRN PRN Reason: Gastric Burning Albuterol Sulfate (Ventolin Aerosols) 2.5 mg INHALATION Q2H PRN PRN PRN Reason: SOB/Wheezing Famotidine (Pepcid) 20 mg PO BID [facility] Glucagon () 1 mg IM .X1 PRN PRN Reason: Hypoglycemia Guaifenesin (Robitussin) 10 ml PO Q4H PRN PRN PRN Reason: COUGH Sodium Chloride () 1,000 mls @ 150 mls/hr IV .Q6H40M [facility] Last Admin: 09/29/19 03:45 Dose: 150 mls/hr Documented by: Meropenem 1 gm/ Sodium (Chloride) 120 mls @ 33 mls/hr IV Q8 [facility] Last Admin: 09/29/19 05:10 Dose: 33 mls/hr Documented by: Vancomycin IV Pharmacy to Dose (1 ea/ Sodium Chloride) 500 mls @ 250 mls/hr IV X1 PRN; Protocol PRN Reason: Rx to Dose Sodium Chloride () 250 mls @ 15 mls/hr IV .[id number] PRN PRN Reason: Saline Flush Sodium Chloride () 250 mls @ 15 mls/hr IV .[id number] PRN PRN Reason: Additional IVPB Infusion Dextrose (Dextrose 10%-Water) 250 mls @ 999 mls/hr IV .Q16M PRN; Protocol PRN Reason: HYPOGLYCEMIA Vancomycin HCl 1,500 mg/ (Sodium Chloride) 530 mls @ 250 mls/hr IV Q8H [facility] Insulin Glargine (Lantus (Bkc)) 10 units SC BID [facility] Insulin Human Lispro (Humalog Kwikpen (Bkc)) 0 unit SC Q6 [facility]; Protocol Last Admin: 09/29/19 05:22 Dose: 2 units Documented by: Lactobacillus Acidophilus (Acidophilus) 2 tablet PO TID [facility] Last Admin: 09/29/19 05:13 Dose: 2 tablet Documented by: Magnesium Hydroxide (Milk Of Magnesia) 30 ml PO DAILY PRN PRN PRN Reason: Constipation Melatonin (Melatonin) 3 mg PO QHS PRN PRN PRN Reason: INSOMNIA Morphine Sulfate () 4 mg IV Q3H PRN PRN PRN Reason: Pain Score 6-10/10 Nitroglycerin (Nitrostat) 0.4 mg SUBLINGUAL Q5M PRN PRN Reason: CARDIAC/CHEST PAIN Ondansetron HCl (Zofran) 4 mg IV Q8H PRN PRN PRN Reason: NAUSEA/VOMITING Oxycodone HCl (Oxyir) 10 mg PO Q4H PRN PRN PRN Reason: Pain Score 4-5/10 Last Admin: 09/29/19 01:55 Dose: 10 mg Documented by: Prochlorperazine Edisylate (Compazine Iv) 5 mg IV Q4H PRN PRN PRN Reason: Breakthrough Nausea/Vomiting Psyllium Hydrophilic Mucilloid (Metamucil) 1 packet PO DAILY [facility] Senna/Docusate Sodium (Senokot-S, Tmei-Colace) 2 tablet PO BID PRN PRN PRN Reason: Constipation Sodium Chloride () 10 - 40 ml IV UD PRN PRN Reason: SALINE FLUSH Throat Lozenges (Cepacol Sore Throat Lozenge) 1 lozenge MUCOUS MEM Q2H PRN PRN PRN Reason: SORE THROAT Assessment/Plan All Active Problems (Last Reviewed 08/31/19 @ 11:13 by Jazmín Alves) Pressure injury of right buttock, stage 2 (Acute) Septic shock (Acute) Gluteal abscess (Acute) Severe sepsis (Acute) Blood infection (Resolved) Recurrent infections (Acute) UTI (urinary tract infection) (Resolved) Cellulitis of left lower extremity (Acute) Sepsis (Acute) Hyperglycemia (Acute) Ulceration left heel and left lateral leg w/ no evidence of infection Reviewed findings and diagnostic data. There is no evidence of infection to foot/ankle or leg bilateral, no evidence of infection to left heel ulcer or to left leg ulceration. Reviewed foot xrays, no evidence of osteomyelitis. Ulceration left heel was debrided using a 15 blade removing fibrotic nonviable tissue from the wound, this was done in excisional fashion. No anesthesia was needed due to peripheral neuropathy. Hemostasis achieved with gauze and pressure. Wound care left heel and leg: Cleanse w/ normal saline solution, apply Aquacel Ag with overlying gauze dressing - change daily. Keep ulcerations offloaded at all times. Podiatry will continue to follow. Thank you for consultation.
--- NOTE | 2019-09-29 10:33 | NURSING ---
wound photo: right buttock
--- NOTE | 2019-09-29 10:33 | NURSING ---
wound photo: bilateral ischium
[2019-09-29] MEDS: Psyllium 1 PACKET PO (10:44)
[2019-09-29] MEDS: Famotidine 20 MG Tablet PO ×2 (10:44→22:47)
--- NOTE | 2019-09-29 11:15 | CASEMGMT ---
Addendum entered by Farzad Carey 09/29/19 13:31: Attempted to see pt for [facility] assessment. Pt is sleeping. Name called, unable to awaken. Will attempt again later. Snehal COLON Original Note: [facility] Note: attempted to see pt for assessment. Unable to participate at this time. Snehal GEEM
[2019-09-29 12:31] LABS: Bedside Glucose 164 mg/dL (70-110)
--- NOTE | 2019-09-29 13:31 | MRI_ITS ---
STUDY: MR PELVIS WITHOUT CONTRAST REASON FOR EXAM: Paraplegic with open wounds sacral and ischial regions, evaluate osteomyelitis. TECHNIQUE: Standardized fat and water weighted pulse sequences were obtained in all 3 orthogonal planes. COMPARISON: CT images 09/28/2019 and 01/13/2019. FINDINGS: There is a fluid collection in the gluteal cleft (T2 sagittal images 23-32) measuring 5.9 x 7.3 x 9.6 cm (AP x transverse x length) consistent with abscess. There is edema adjacent to the abscess extending around the anus and to the inferior margin of the coccyx (inversion recovery coronal images 4-9). There is posterior and cephalad displacement of the distal 3 coccygeal segments (T2 sagittal images 24, 25), suggestive of remote fracture dislocation since this is present on the CT images in December 2018. There is bone edema of the first coccygeal segment (inversion recovery coronal image 7) with erosion of the distal aspect of the first coccygeal segment (T1 coronal image 7) suggestive of osteomyelitis. There is no demonstrated bone edema of the displaced distal 3 coccygeal segments. There is no demonstrated bone edema of the sacrum. There is no erosive changes of the sacroiliac joints or bone edema of the iliac wings. There is no bone edema of the ischial tuberosities and the inflammation does not extend to the ischial tuberosities. There is no bone edema of the obturator rings. Normal bilateral hip joints and acetabula. There is diffuse muscular atrophy with fat replacement. There is mild fluid in the iliacus bursa bilaterally (T2 axial images 8-14) suggestive of bursitis. MRI/Pelvis (Routine) IMPRESSION: Soft tissue abscess in the gluteal cleft with adjacent inflammation extending around the anus into the inferior margin of the coccyx. Osteomyelitis of the first coccygeal segment with chronic displacement of the distal 3 coccygeal segments. Mild iliacus bursitis bilaterally. No demonstrated osteomyelitis of the ischium. Electronically Signed: Jorge Copeland MD at 7:39 EDT Tel , Service support ,
--- NOTE | 2019-09-29 14:24 | PCM.CONS.GEN ---
Reason for Consult Date of Consultation: 09/29/19 Reason for Consultation: Bilateral ischial pressure sores. REFERRING PHYSICIAN: Dr. Suarez. TRANSPORT OPERATIONS INSPECTOR: Dr. Granados. History of Present Illness: The patient is a 33 year old M who is a paraplegic and has diabetes mellitus and history of MRSA was recently admitted because of concerns of a UTI. I had seen him back in 01/05 with bilateral ischial pressure sores at that time. I recommend surgery and he declined. Since then the pressure sore wounds healed. He had been going [facility] for treatment of diabetic ulcers on his left lateral lower leg, left heel, and right lateral ankle. They are stable at this time and they were dressed with Aquacel Silver dressing changes. The right lateral ankle ulcer had healed. He also has some abdominal pain. CT showed perianal soft tissue thickening with associated fluid collection in the right gluteal cleft possibly representing an abscess. There is also precoccygeal soft tissue thickening and possibility of coexisting osteomyelitis cannot be excluded. MRI would be useful for further evaluation in this regard if clinically warranted. He was placed on Vancomycin and Meropenem. WBC was elevated at 17.2. Temp was elevated at 100.1. Lactate was elevated at 4.8. It has since improved to 1. HgbA1c was elevated at 8.7. He states he has issues with urinary incontinence at night and he wakes up with urine all around his ischial wounds. He straight catheterizes himself during the day without problem. It is when he goes to sleep all night and wakes up wet. I have been asked to evaluate this patient for surgical options for treatment. Past Medical History Past Medical History (Chronic Problems): Chronic Problems (Last Reviewed 08/31/19 @ 11:13 by Jazmín Alves) Paraplegia (Chronic) Pressure sore of left ischium, stage 3 (Chronic) Right ischial pressure sore, stage 3 (Chronic) Urinary incontinence, nocturnal enuresis (Chronic) Diabetic ulcer of lower leg associated with type 2 diabetes mellitus, with fat layer exposed (Chronic) Diabetic ulcer of ankle associated with type 2 diabetes mellitus, with fat layer exposed (Chronic) Diabetic foot ulcer associated with type 2 diabetes mellitus, with fat layer exposed (Chronic) PVD (peripheral vascular disease) (Chronic) Left leg cellulitis (Chronic) Ulcer of left lower extremity with fat layer exposed (Chronic) Chronic ulcer of left heel (Chronic) Diarrhea (Chronic) Ulcer of right lower extremity with fat layer exposed (Chronic) Sebaceous cyst (Chronic) of right quaker involving very lateral eyebrow Swelling, mass, or lump on face (Chronic) Type 2 diabetes mellitus (Chronic) Hypersomnolence (Chronic) Urinary incontinence (Chronic) Lower limb ulcer (Chronic) Paralysis (Chronic) Cavernous hemangioma (Chronic) 10/2009 High blood pressure (Chronic) Diabetes (Chronic) 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) Medical History: Medical History (Last Reviewed 08/31/19 @ 11:13 by Jazmín Alves) Paralysis (Chronic) G83.9 Blood infection (Resolved) A41.9 11/05 Cavernous hemangioma (Chronic) D18.00 10/2009 Recurrent infections (Acute) B99.9 High blood pressure (Chronic) I10 Diabetes (Chronic) E11.9 UTI (urinary tract infection) (Resolved) N39.0 Allergies amoxicillin Adverse Reaction (Verified 09/28/19 21:06) Diarrhea Home Medications: Ambulatory Orders Medication Instructions Recorded L.acidoph,Paracasei, B.lactis 1 ea PO DAILY 09/29/19 [Probiotic] Psyllium [Metamucil] 1 packet PO DAILY 09/29/19 Surgical History: - - Tonsillectomy. Psychiatric History: No pertinent psych hx Lives: Alone Smoking Status: Former smoker - Patient quit cigarette tobacco usage approximately 4 months prior to current presentation. Tobacco Use: Non-smoker Alcohol: None Drugs: None - *Family History Maternal Family History: Family History (Last Reviewed 08/31/19 @ 11:13 by Jazmín Alves) Mother Hypertension History Items: Hypertension Paternal Family History: Family History (Last Reviewed 08/31/19 @ 11:13 by Jazmín Alves) Mother Hypertension History Items: - - Denies any marketed paternal family history including heart disease, diabetes or cancer. Review of Systems Comment: Constitutional: Reports: Chills, Fever, Malaise, Weakness, Fatigue. Denies: Anorexia, Weight Change. HEENT: Denies: Head Aches, Sinus Congestion, Sinus Drainage. Cardiovascular: Denies: Chest Pain, Palpitations. Respiratory: Denies: Cough, Shortness of breath at rest, Sputum production. Gastrointestinal: Reports: Abdominal Pain, Nausea. Denies: Vomiting. Genitourinary: Reports: Retention. Denies: Dysuria. Musculoskeletal: Denies: Joint Pain, Joint Tenderness. Skin: Reports: Skin Changes, Wounds. Denies: Rash. Neurological: Denies: Numbness, Tingling, Focal weakness. Psychiatric: Denies: Anxiety, Depression, Homicidal Ideations, Suicidal Ideations. Hematologic/ Lymphatic: Denies: Easy Bruising, Easy Bleeding Patient Problems: Active and Suspected Problems (Last Reviewed 08/31/19 @ 11:13 by Jazmín Alves) Septic shock (Acute) Gluteal abscess (Acute) - Physical Exam Vitals/I&O's: General: Alert, No apparent distress. HEENT: PERRL. EOMI. Oral: Moist Mucosa. Neck: Supple, nontender. No cervical adenopathy. Lungs: Clear to auscultation. Cardiovascular: Regular rate, Regular Rhythm. Abdomen: Soft, Non-Distended. Extremities: No edema. Skin: - - Patient has a nonhealing diabetic ulcer left heel. Some granulation tissue seen. Measures 3 x 5 x 0.2 cm. Has nonhealing diabetic ulcer left lateral leg. Some granulation tissue seen. Measures 2 x 1.5 x 0.2 cm. Had diabetic ulcer right lateral ankle that has healed. Has bilateral ischial pressure sores. Scabbing present. Periwound maceration seen from urine leakage. At least a Stage III, but I suspect a Stage IV with involvement of the underlying muscle and/or bone On the left it measures 3 x 6 x 0.1 cm. On the right it measures 3 x 2 x 0.2 cm. No purulent drainage seen. No fluctuance seen. On the right buttock near the sacrum is a shearing injury from transferring. Measures 2.3 x 2 x 0.1 cm. Some granulation tissue seen. Looks partial thickness with dermis present. A stage II injury. No purulent drainage. Neurological: - - No sensation in the lower extremities. CN II - XII grossly intact. Psych/Mental Status: Normal Affect, Appropriate. Vital Signs Temp Pulse Resp BP Pulse Ox 99.1 F 109 H 18 125/83 H 96 09/29/19 12:00 09/29/19 12:00 09/29/19 12:00 09/29/19 12:00 09/29/19 12:00 Oxygen Delivery Method Room Air Weight: 320 lb 8.834 oz Body Mass Index (BMI) 43.4 Intake and Output for Last 24 Hours 09/27/19 09/28/19 09/29/19 23:59 23:59 23:59 Intake Total 7037.05 / 7037.05 Output Total 1550 / 1550 Balance 5487.05 / 5487.05 Laboratory Results 09/28/19 22:05: WBC 17.2 H, RBC 4.84, Hgb 13.5, Hct 41.5, MCV 85.7, MCH 27.9, MCHC 32.5, RDW Std Deviation 46.2 H, RDW Coeff of Darrell 14.7 H, Plt Count 270, MPV 11.1, Immature Gran % (Auto) 0.500, Neut % (Auto) 77.4 H, Lymph % (Auto) 13.7 L, Baxter % (Auto) 6.6, Eos % (Auto) 1.5, Baso % (Auto) 0.3, Absolute Neuts (auto) 13.3 H, Absolute Lymphs (auto) 2.35, Nucleated RBC % 0 09/28/19 22:05: PT 14.9, INR 1.2, APTT 27.7 09/28/19 22:05: Sodium 133 L, Potassium 3.9, Chloride 99, Carbon Dioxide 22.0, Anion Gap 12, BUN 12, Creatinine 0.68 L, Estim Creat Clear Calc 164.84, Est GFR (MDRD) Af Amer 169, Est GFR (MDRD) Non-Af 139, BUN/Creatinine Ratio 17.6, Glucose 254 H, Calcium 8.5, Total Bilirubin 0.30, AST 27, ALT 83 H, Alkaline Phosphatase 157 H, Total Protein 7.9, Albumin 2.9 L, Globulin 5.0 H, Albumin/Globulin Ratio 0.6 L 09/28/19 22:05: Lactic Acid 4.8 H* 09/28/19 22:05: ESR 105 H 09/28/19 22:05: C-React Prot Ext Range 167.00 H 09/28/19 22:05: Phosphorus 3.6, Magnesium 2.0 09/28/19 22:45: Urine Color Yellow, Urine Clarity Cloudy, Urine pH 5.0, Ur Specific [place] 1.020, Urine Protein 30 H, Urine Glucose (UA) 100 H, Urine Ketones 15 H, Urine Occult Blood 50 H, Urine Nitrite Negative, Urine Bilirubin 3 H, Urine Urobilinogen 4 H, Ur Leukocyte Esterase 500 H, Urine RBC 0-5 SEEN, Urine WBC 50-100 SEEN, Ur Squamous Epith Cells 5-10 SEEN, Urine Bacteria 0 SEEN, Urine Mucus 0 SEEN 09/29/19 02:30: Sodium 133 L, Potassium 3.8, Chloride 102, Carbon Dioxide 25.0, Anion Gap 6, BUN 9, Creatinine 0.43 L, Estim Creat Clear Calc 260.67, Est GFR (MDRD) Af Amer 290, Est GFR (MDRD) Non-Af 240, BUN/Creatinine Ratio 21.1 H, Glucose 196 H, Calcium 8.1 L 09/29/19 02:30: WBC 17.6 H, RBC 4.58 L, Hgb 12.8 L, Hct 40.1, MCV 87.6, MCH 27.9, MCHC 31.9 L, RDW Std Deviation 47.5 H, RDW Coeff of Darrell 14.7 H, Plt Count 239, MPV 10.8, Immature Gran % (Auto) 0.500, Neut % (Auto) 81.4 H, Lymph % (Auto) 9.0 L, Baxter % (Auto) 7.7, Eos % (Auto) 1.1, Baso % (Auto) 0.3, Absolute Neuts (auto) 14.3 H, Absolute Lymphs (auto) 1.58, Nucleated RBC % 0 09/29/19 02:30: PT 16.0 H, INR 1.3, APTT 28.0 09/29/19 02:30: Hemoglobin A1c 8.7 H 09/29/19 02:30: Lactic Acid 1.0 09/29/19 05:19: POC Glucose 217 H 09/29/19 12:27: POC Glucose 164 H Current Medications Acetaminophen (Tylenol) 650 mg PO Q6H PRN PRN PRN Reason: Pain Score 1-10/Temp > 100.7 F Al Hydroxide/Mg Hydroxide (Mylanta Ii) 30 ml PO Q6H PRN PRN PRN Reason: Gastric Burning Albuterol Sulfate (Ventolin Aerosols) 2.5 mg INHALATION Q2H PRN PRN PRN Reason: SOB/Wheezing Calamine/Phenol (Calmoseptine Ointment) 1 applic TOPICAL BID JAVAD; Protocol Famotidine (Pepcid) 20 mg PO BID [facility] Last Admin: 09/29/19 10:44 Dose: 20 mg Documented by: Glucagon () 1 mg IM .X1 PRN PRN Reason: Hypoglycemia Guaifenesin (Robitussin) 10 ml PO Q4H PRN PRN PRN Reason: COUGH Sodium Chloride () 1,000 mls @ 150 mls/hr IV .Q6H40M [facility] Last Infusion: 09/29/19 12:48 Dose: 150 mls/hr Documented by: Meropenem 1 gm/ Sodium (Chloride) 120 mls @ 33 mls/hr IV Q8 [facility] Last Infusion: 09/29/19 08:49 Dose: Infused Documented by: Vancomycin IV Pharmacy to Dose (1 ea/ Sodium Chloride) 500 mls @ 250 mls/hr IV X1 PRN; Protocol PRN Reason: Rx to Dose Sodium Chloride () 250 mls @ 15 mls/hr IV .[id number] PRN PRN Reason: Saline Flush Sodium Chloride () 250 mls @ 15 mls/hr IV .Q64G20H PRN PRN Reason: Additional IVPB Infusion Dextrose (Dextrose 10%-Water) 250 mls @ 999 mls/hr IV .Q16M PRN; Protocol PRN Reason: HYPOGLYCEMIA Vancomycin HCl 1,500 mg/ (Sodium Chloride) 530 mls @ 250 mls/hr IV Q8H [facility] Last Infusion: 09/29/19 12:46 Dose: Infused Documented by: Insulin Glargine (Lantus (Bk)) 10 units SC BID [facility] Last Admin: 09/29/19 12:41 Dose: 10 units Documented by: Insulin Human Lispro (Humalog Kwikpen ([facility])) 0 unit SC Q6 [facility]; Protocol Last Admin: 09/29/19 12:40 Dose: 1 units Documented by: Lactobacillus Acidophilus (Acidophilus) 2 tablet PO TID [facility] Last Admin: 09/29/19 05:13 Dose: 2 tablet Documented by: Magnesium Hydroxide (Milk Of Magnesia) 30 ml PO DAILY PRN PRN PRN Reason: Constipation Melatonin (Melatonin) 3 mg PO QHS PRN PRN PRN Reason: INSOMNIA Morphine Sulfate () 4 mg IV Q3H PRN PRN PRN Reason: Pain Score 6-10/10 Nitroglycerin (Nitrostat) 0.4 mg SUBLINGUAL Q5M PRN PRN Reason: CARDIAC/CHEST PAIN Ondansetron HCl (Zofran) 4 mg IV Q8H PRN PRN PRN Reason: NAUSEA/VOMITING Oxycodone HCl (Oxyir) 10 mg PO Q4H PRN PRN PRN Reason: Pain Score 4-5/10 Last Admin: 09/29/19 01:55 Dose: 10 mg Documented by: Prochlorperazine Edisylate (Compazine Iv) 5 mg IV Q4H PRN PRN PRN Reason: Breakthrough Nausea/Vomiting Psyllium Hydrophilic Mucilloid (Metamucil) 1 packet PO DAILY JAVAD Last Admin: 09/29/19 10:44 Dose: 1 packet Documented by: Senna/Docusate Sodium (Senokot-S, Temi-Colace) 2 tablet PO BID PRN PRN PRN Reason: Constipation Sodium Chloride () 10 - 40 ml IV UD PRN PRN Reason: SALINE FLUSH Throat Lozenges (Cepacol Sore Throat Lozenge) 1 lozenge MUCOUS MEM Q2H PRN PRN PRN Reason: SORE THROAT Assessment/Plan All Active Problems (Last Reviewed 08/31/19 @ 11:13 by Jazmín Alevs) Pressure injury of right buttock, stage 2 (Acute) Septic shock (Acute) Gluteal abscess (Acute) Severe sepsis (Acute) Blood infection (Resolved) Recurrent infections (Acute) UTI (urinary tract infection) (Resolved) Cellulitis of left lower extremity (Acute) Sepsis (Acute) Hyperglycemia (Acute) 1. Right ischial pressure sore, at least Stage III. 2. Left ischial pressure sore, at least Stage III. 3. Nonhealing diabetic ulcer left lateral leg. 4. Nonhealing diabetic ulcer left heel. 5. Diabetic ulcer right lateral ankle, healed. 6. History of MRSA. 7. Diabetes mellitus. 8. Paraplegia. 9. Nocturnal urinary incontinence. 10. Right buttock shearing injury, Stage II. 11. Sepsis, resolving. CT Pelvis reviewed. Some suspicion noted for osteomyelitis and right gluteal fluid collection consistent with possible abscess. Recommend operative intervention of these bilateral ischial pressure sores. They are at least a Stage III or a Stage IV with possible bone involvement. Postoperatively, will place the VAC. Soft tissue and bone (if necessary) will be sent to Pathology for analysis to rule out carcinoma and to evaluate for osteomyelitis and to Microbiology for culture. A positive culture may necessitate antibiotic modification. At present, he is on Vancomycin and Meropenem. He has a history of MRSA. Anticipate increased metabolic demands from the infection and from the multiple ulcerations. Will check a Prealbumin and encourage nutritional supplementation with protein to help the healing process. HgbA1c is 8.7. Before any elective myocutaneous flaps can be done, the HgbA1c needs to be less than 8. Podiatry has been consulted to manage the diabetic ulcers left lateral leg and left heel. At present, there is wound care with Aquacel Silver. He also has a shearing injury on the right buttock area near the sacrum. Looks partial thickness. A stage II. Calmoseptine is being applied. No urgency with excision at this time. Will see how well it heals. It it worsens, then will need operative excision at that time. There is also issues with nocturnal urinary incontinence. He straight catheterizes himself during the day without issues. At night when he is sleeping, he will have urinary accidents that moistens the surrounding skin of the pressure sores making them worse and less likely to heal. He had mentioned placing a bolivar catheter just at night with straight catheterization during the day. I told him I would check but I doubt insurance would cover 30 bolivar catheters per month. Another option is to place a bolivar termite control service representative or continue straight catheterization during the day and placement of a [place] catheter just at night. Getting control of urinary leakage is imperative if there is any chance at healing these bilateral ischial pressure sores. Will schedule the surgery tomorrow under general anesthesia. Patient was informed of the risks and complications of the procedure including alternatives to surgery. These were discussed with the patient personally. Patient voices understanding and wishes to proceed. After discharge, can follow up at the [facility]. Inpatient E&M: 25299 Init Hosp L2 - ICD-10 - L89.313, L89.323, E11.622, A49.02, E11.9, G82.20, N39.44, L89.312, A41.9
[2019-09-29] MEDS: Acetaminophen 325 MG Tablet 650 MG PO ×2 (14:47→22:09)
[2019-09-29 18:21] LABS: Bedside Glucose 189 mg/dL (70-110)
[2019-09-29 23:01] LABS: Bedside Glucose 190 mg/dL (70-110)
[2019-09-29] MEDS: Menthol/Lanolin/Calamine/Znox 113 GM Tube 1 APPLIC TOPICAL (23:24)
--- NOTE | 2019-09-30 00:04 | NURSING ---
pt states he is refusing to have surgery in the morning.
[2019-09-30] MEDS: Insulin Lispro 100 UNIT/ML INSULN.PEN SC ×3 (00:08→17:38)
[2019-09-30 00:13] VITALS: TEMP 37.1
[2019-09-30 01:51] LABS: Vancomycin, Trough Level 7.7 ug/mL (5.0-15.0)
--- NOTE | 2019-09-30 02:09 | PCM.RX.CS ---
Consult Pharmacy has been consulted to manage selected antiobiotic: Vancomycin Type of Consult: Follow-up Suspected Infection: Sepsis Labs: Sodium 133 mmol/L (136-145) L 09/29/19 02:30 Potassium 3.8 mmol/L (3.5-5.1) 09/29/19 02:30 Chloride 102 mmol/L (98-107) 09/29/19 02:30 Carbon Dioxide 25.0 mmol/L (21.0-32.0) 09/29/19 02:30 Anion Gap 6 (5-15) 09/29/19 02:30 BUN 9 mg/dL (7-18) 09/29/19 02:30 Creatinine 0.43 mg/dL (0.70-1.30) L 09/29/19 02:30 Est GFR (MDRD) Af Amer 290 mL/min (>60) 09/29/19 02:30 Est GFR (MDRD) Non-Af 240 mL/min (>60) 09/29/19 02:30 BUN/Creatinine Ratio 21.1 RATIO (10-20) H 09/29/19 02:30 Glucose 196 mg/dL (74-106) H 09/29/19 02:30 Vancomycin Trough 7.7 ug/mL (5.0-15.0) 09/30/19 01:14 Goal Trough: 15-20 mcg/mL Pharmacy Plan for Drug Dosing: Pharmacy Service will continue to monitor and adjust dosing as required. Medications Vancomycin HCl 2,000 mg/ (Sodium Chloride) 540 mls @ 250 mls/hr IV Q8H JAVAD TROUGH 7.7 INCREASE TO 2GM Q8H AND REDRAW TROUGH 09/30 @ 30 Follow-Up Labs: Trough Vancomycin Labs to be done on [date and time ordered]: 09/30 @ 30
--- NOTE | 2019-09-30 02:11 | CPS ---
pt non compliant with bipap, refuses to wear
[2019-09-30 03:33] VITALS: BP 132/79; PULSE 113; RESP 18; TEMP 36.8; O2SAT 94
[2019-09-30 05:50] LABS: Bedside Glucose 172 mg/dL (70-110)
[2019-09-30 06:19] LABS: Hematocrit 35.4 % (40-54); Hemoglobin 11.7 g/dL (13.0-16.5); Mean Corp Hgb Conc 33.1 g/dL (32-36); Mean Corpuscular Hgb 28.4 pg (27.0-32.0); Mean Corpuscular Volume 85.9 fL (80-94); Mean Platelet Vol. 11.1 fl (6.2-12.0); Platelet Count 244 K/mm3 (150-450); RBC Distribution Width CV 14.9 % (11.6-14.6); RBC Distribution Width SD 46.8 fl (35.1-43.9); Red Blood Count 4.12 M/mm3 (4.6-6.2); White Blood Count 15.1 K/mm3 (4.4-11.0)
[2019-09-30] MEDS: 0.9% Normal Saline 1,000 ML 150 ML IV ×2 (06:28→16:30)
[2019-09-30 06:49] LABS: Anion Gap 7 (5-15); BUN 7 mg/dL (7-18); BUN/Creat Ratio 23.2 RATIO (10-20); Calcium,Total 8.2 mg/dL (8.5-10.1); Chloride 105 mmol/L (98-107); EST Glomerular Filtration Rate 357 mL/min (>60); Est Glom Filt Rate - Afr Amer 432 mL/min (>60); Glucose 181 mg/dL (74-106); Magnesium 1.9 mg/dL (1.6-2.6); Potassium 3.8 mmol/L (3.5-5.1); Sodium Level 136 mmol/L (136-145)
[2019-09-30 07:57] VITALS: O2SAT 92
--- NOTE | 2019-09-30 08:14 | PCM.PN.BLA ---
Progress Note Patient was scheduled for surgery this morning for excision bilateral ischial pressure sores with possible partial ostectomy for osteomyelitis. He has declined the surgery. Patient understands that the presence of a possible abscess in the ischial area can worsen which can lead to worsening of the infection which can be life threatening, and possible amputation. Will continue the Silver dressing changes. After discharge, he can followup at the [facility]. STROKE Vital Signs/Narrative: Vital Signs Pulse Ox 09/30/19 07:57 92
[2019-09-30 09:02] VITALS: BP 147/87; PULSE 101; RESP 20; TEMP 36.6; O2SAT 96
[2019-09-30] MEDS: Psyllium 1 PACKET PO (09:13)
[2019-09-30] MEDS: Famotidine 20 MG Tablet PO (09:13)
[2019-09-30] MEDS: Menthol/Lanolin/Calamine/Znox 113 GM Tube 1 APPLIC TOPICAL (09:15)
[2019-09-30] MEDS: Glucerna Shake 120 ML LIQUID PO ×3 (09:18→18:00)
--- NOTE | 2019-09-30 11:00 | CASEMGMT ---
RN CARRIE PARACHUTIST/COMBATANT DIVER QUALIFIED CM to room to meet with patient for initial transition planning/care coordination assessment. AURORA BUTLER introduced self and role at [facility]. Pt voices understanding and consents to assessment at this time. Pt resting in bed in no distress at this time. Pt is A/O at this time and answers all questions appropriately. Care providers, pharmacy, and demographics verified/updated at this time. PCP: Dr Andersen Specialists: [facility] Preferred Pharmacy: [facility] Retail Insurance: [facility], [employer] [facility] Just For Me Prescription Benefit: States he thinks so Living Will/HPOA: does not have LW or HCPOA . Interested in more information but does not want to talk with SW at this time to complete paperwork. Provided information on advanced directives and given Social Service rac card with number to call if chooses in the future to utilize [facility] social work for advanced directive completion. LNOK: Parents, Brother and Sister. Living Arrangements: Lives alone in a one-story home w/no steps to enter. Ex- and friend come to help daily with his bowel regimen and dressing changes. is interested in seeing if he qualifies for aide services. HEIDY, Sabi Zuniga, made aware. Transportation: Self/family DME: has the following DME: W/C, shower chair, rails/grab bars, hand held shower. Has a glucometer and Insulin but has not been checking his blood sugars and has not been taking his insulin. Pt states he is not sure if he has all the supplies for the glucometer and that he does not have needles, but he is not sure what kind he needs. Pt also states he pays [id number] for his catheter supplies that he orders on-line and is interested in information on DME companies that he could get the supplies from through insurance. Given list of local DME companies and advised him to talk w/PCP to get script for catheter supplies once he returns home. Pt also states he is supposed to wear a BIPAP but d/t insurance issues/[facility] not covering for it d/t non-compliance, he does not wear it. Pt states he was ill for 2 weeks while they were working on getting him qualified, he was unable to be compliant with it and therefore insurance will not cover it. Advised pt to contact [employer] to see if they can do another attempt for compliance/insurance approval. Pt voices understanding. Pt states he would like to transfer to [facility] from [facility]. Pt made aware to discuss these above stated DME needs with accepting hospital CM prior to discharge and to talk w/PCP for any further needs once he returns home. HHC/SNF: No history of SNF. States would be interested in [facility] HHC if needed @ discharge if he does not end up transferring to another hospital. CM to follow for any further discharge planning/needs. Pt voices no further concerns/needs at this time. Advised pt to ask for CM if any further questions/concerns/needs arise. Voices understanding. PLAN: Pt states is interested in transferring to [facility] from [facility]. MS3 RN CARRIE, Almita Woodward, made aware and also [facility] charge nurse, Debi is aware. She states they are awaiting to talk with Dr Mandujano about pt's wishes. Mario YUN RN CM
[2019-09-30 12:35] LABS: Bedside Glucose 202 mg/dL (70-110)
--- NOTE | 2019-09-30 14:42 | CASEMGMT ---
Social Work Note SW in to speak with pt and provided education on [facility] and W[employer] Program. SW encouraged pt to call [facility] once he is home and they will be able to tell pt if he qualifies for services. SW provided pt with [facility] packet and number to call. Sabi Zuniga [facility] [employer], CRABBING MACHINE OPERATOR
--- NOTE | 2019-09-30 14:56 | PN_ITS ---
Patient Problems: Active and Suspected Problems (Last Reviewed 08/31/19 @ 11:13 by Jazmín Alves) Septic shock (Acute) Gluteal abscess (Acute) Reason for Visit: Septic shock secondary to gluteal abscess, follow-up Objective: No fever or chills. Heart rate 100 213/min. Blood pressure is stable. Pelvic MRI results showed 5.9 x 7.3 x 9.6 cm fluid collection in the gluteal cleft consistent with abscess. There is edema and central abscess extending around the anus and to the inferior margin of cocci suggestive of osteomyelitis. Diffuse muscular atrophy with fat replacement Patient refused for surgery here therefore canceled. Wants to get transferred to [facility] for surgery and rehab. Vitals/I&O's: Vital Signs Temp Pulse Resp BP Pulse Ox 97.9 F 101 H 20 H 147/87 H 96 09/30/19 09:02 09/30/19 09:02 09/30/19 09:02 09/30/19 09:02 09/30/19 09:02 Oxygen Delivery Method Room Air Weight: 320 lb 1.779 oz Body Mass Index (BMI) 43.4 Intake and Output for Last 24 Hours 09/28/19 09/29/19 09/30/19 23:59 23:59 23:59 Intake Total 9269.55 / 9269.55 3150.75 / 3150.75 Output Total 2875 / 2875 3100 / 3100 Balance 6394.55 / 6394.55 50.75 / 50.75 General: Alert, Oriented x3, Cooperative HEENT: Atraumatic, PERRLA, EOMI, Normocephalic Neck: Supple, No JVD, Negative Carotid Bruits Lungs: Clear to auscultation, Normal air movement Cardiovascular: Regular rate, Regular Rhythm, Normal S1, Normal S2, No murmurs Abdomen: Bowel Sounds Present, Soft, Non Tender, Non-Distended Extremities: Capillary Refill Less than 3 Seconds, Edema Skin: Ulcer/ Wound - Multiple abscesses and ulcer over gluteal region, bilateral ischium and around perianal region. Left heel ulcer, left lateral lower leg ulcer, right ankle ulcer Musculoskeletal: No Tenderness to Palpation of Joints or Extremities, Arthritic Changes, Muscle Wasting Neurological: Cranial nerves II-XII grossly intact, - - Patient is paraplegic with no sensation below T7 level Had cavernous hemangioma in thoracic spine that resulted into paraplegia. Psych/Mental Status: Normal Affect, Appropriate Microbiology Past 72 Hours 09/28/19 22:05 Blood Culture (Wb) - Right Hand Blood Culture - Preliminary 09/28/19 22:45 Urine, Clean Catch Urine Culture - Preliminary Mixed Gram Pos & Gram Neg Org Laboratory Results 09/29/19 18:11: POC Glucose 189 H 09/29/19 22:56: POC Glucose 190 H 09/30/19 01:14: Vancomycin Trough 7.7 09/30/19 05:33: WBC 15.1 H, RBC 4.12 L, Hgb 11.7 L, Hct 35.4 L, MCV 85.9, MCH 28.4, MCHC 33.1, RDW Std Deviation 46.8 H, RDW Coeff of Darrell 14.9 H, Plt Count 244, MPV 11.1 09/30/19 05:33: Sodium 136, Potassium 3.8, Chloride 105, Carbon Dioxide 24.0, Anion Gap 7, BUN 7, Creatinine 0.30 L, Estim Creat Clear Calc 373.63, Est GFR (MDRD) Af Amer 432, Est GFR (MDRD) Non-Af 357, BUN/Creatinine Ratio 23.2 H, Glucose 181 H, Calcium 8.2 L, Magnesium 1.9 09/30/19 05:45: POC Glucose 172 H 09/30/19 08:30: S.aureus Protein A PCR Pending, MRSA (PCR) Pending 09/30/19 12:27: POC Glucose 202 H Current Medications Acetaminophen (Tylenol) 650 mg PO Q6H PRN PRN PRN Reason: Pain Score 1-10/Temp > 100.7 F Last Admin: 09/29/19 22:09 Dose: 650 mg Documented by: Al Hydroxide/Mg Hydroxide (Mylanta Ii) 30 ml PO Q6H PRN PRN PRN Reason: Gastric Burning Albuterol Sulfate (Ventolin Aerosols) 2.5 mg INHALATION Q2H PRN PRN PRN Reason: SOB/Wheezing Calamine/Phenol (Calmoseptine Ointment) 1 applic TOPICAL BID [facility]; Protocol Last Admin: 09/30/19 09:15 Dose: 1 applicatio Documented by: Famotidine (Pepcid) 20 mg PO BID [facility] Last Admin: 09/30/19 09:13 Dose: 20 mg Documented by: Glucagon () 1 mg IM .X1 PRN PRN Reason: Hypoglycemia Guaifenesin (Robitussin) 10 ml PO Q4H PRN PRN PRN Reason: COUGH Sodium Chloride () 1,000 mls @ 150 mls/hr IV .Q6H40M [facility] Last Infusion: 09/30/19 14:52 Dose: Infused Documented by: Meropenem 1 gm/ Sodium (Chloride) 120 mls @ 33 mls/hr IV Q8 [facility] Last Infusion: 09/30/19 09:36 Dose: Infused Documented by: Vancomycin IV Pharmacy to Dose (1 ea/ Sodium Chloride) 500 mls @ 250 mls/hr IV X1 PRN; Protocol PRN Reason: Rx to Dose Sodium Chloride () 250 mls @ 15 mls/hr IV .[id number] PRN PRN Reason: Saline Flush Last Infusion: 09/30/19 09:36 Dose: 15 mls/hr Documented by: Sodium Chloride () 250 mls @ 15 mls/hr IV .[id number] PRN PRN Reason: Additional IVPB Infusion Dextrose (Dextrose 10%-Water) 250 mls @ 999 mls/hr IV .Q16M PRN; Protocol PRN Reason: HYPOGLYCEMIA Vancomycin HCl 2,000 mg/ (Sodium Chloride) 540 mls @ 250 mls/hr IV Q8H [facility] Last Infusion: 09/30/19 09:00 Dose: Infused Documented by: Insulin Glargine (Lantus (Bkc)) 10 units SC BID [facility] Last Admin: 09/30/19 09:17 Dose: 10 units Documented by: Insulin Human Lispro (Humalog Kwikpen (Bkc)) 0 unit SC Q6 [facility]; Protocol Last Admin: 09/30/19 12:29 Dose: 2 units Documented by: Lactobacillus Acidophilus (Acidophilus) 2 tablet PO TID [facility] Last Admin: 09/30/19 06:03 Dose: Not Given Documented by: Magnesium Hydroxide (Milk Of Magnesia) 30 ml PO DAILY PRN PRN PRN Reason: Constipation Melatonin (Melatonin) 3 mg PO QHS PRN PRN PRN Reason: INSOMNIA Morphine Sulfate () 4 mg IV Q3H PRN PRN PRN Reason: Pain Score 6-10/10 Nitroglycerin (Nitrostat) 0.4 mg SUBLINGUAL Q5M PRN PRN Reason: CARDIAC/CHEST PAIN Nutritional Formula (Tang - Mcpherson Flavor) 1 packet PO BIDCM [facility] Last Admin: 09/30/19 09:18 Dose: 1 packet Documented by: Nutritional Formula (Lactose Free) (Glucerna Shake) 120 ml PO 4X/DAY [facility] Last Admin: 09/30/19 09:18 Dose: 120 ml Documented by: Ondansetron HCl (Zofran) 4 mg IV Q8H PRN PRN PRN Reason: NAUSEA/VOMITING Oxycodone HCl (Oxyir) 10 mg PO Q4H PRN PRN PRN Reason: Pain Score 4-5/10 Last Admin: 09/29/19 01:55 Dose: 10 mg Documented by: Prochlorperazine Edisylate (Compazine Iv) 5 mg IV Q4H PRN PRN PRN Reason: Breakthrough Nausea/Vomiting Psyllium Hydrophilic Mucilloid (Metamucil) 1 packet PO DAILY [facility] Last Admin: 09/30/19 09:13 Dose: 1 packet Documented by: Senna/Docusate Sodium (Senokot-S, Temi-Colace) 2 tablet PO BID PRN PRN PRN Reason: Constipation Sodium Chloride () 10 - 40 ml IV UD PRN PRN Reason: SALINE FLUSH Throat Lozenges (Cepacol Sore Throat Lozenge) 1 lozenge MUCOUS MEM Q2H PRN PRN PRN Reason: SORE THROAT Medical Necessity - Tobacco Use Smoking Status: Former smoker - Patient quit cigarette tobacco usage approximately 4 months prior to current presentation. Tobacco Use: Non-smoker Assessment/Plan All Active Problems (Last Reviewed 08/31/19 @ 11:13 by Jazmín Alves) Pressure injury of right buttock, stage 2 (Acute) Septic shock (Acute) Gluteal abscess (Acute) Severe sepsis (Acute) Blood infection (Resolved) Recurrent infections (Acute) UTI (urinary tract infection) (Resolved) Cellulitis of left lower extremity (Acute) Sepsis (Acute) Hyperglycemia (Acute) Patient is a 34-year-old gentleman with multiple comorbidities including paraplegia, sacral, gluteal region, perianal region decubitus wound with osteomyelitis was admitted with generalized weakness and assessment of septic shock secondary to gluteal abscess made admitted to the intensive care unit for further management 1. Septic shock secondary to bilateral gluteal abscess: On admission lactic acid about 4.8 -CT obtained on admission demonstrated Perianal soft tissue thickening with associated fluid collection in the right gluteal cleft possibly representing an abscess admitted to the intensive care unit managed with broad-spectrum antibiotic therapy with consultation placed to plastic surgery, infectious disease as well as manufacturing inspector and were sent on admission. 09/29: MRI of pelvis without contrast was done which showed 5.9 x 7.3 x 9.6 cm consistent with abscess edema adjacent to abscess extending into around the anus and coccyx suggestive of osteomyelitis. Diffuse muscular atrophy. Patient is scheduled for surgery in the morning but he refused it. Overall, abscess, MRI finding and requirement of surgery discussed with the patient and his . The patient and his want to transfer to [facility]. Transfer call to the [facility] made and waiting for the call back. Wound buttock Gram stain and culture is pending. Urine culture shows mixed gram-positive and gram-negative organisms suggestive of contamination. 2. Necrotic left heel ulcer -Patient seen in consultation by Dr. Thacker with podiatry 3. Osteomyelitis as per MRI of coccyx region: 4. History of T7 cavernous hemangioma with subsequent paraplegia, urinary i ncontinence and constipation ?Supportive care. 5. Obesity BMI 43.5 -Weight loss advised 6. Essential hypertension -Patient antihypertensives placed on hold on admission in view of his low blood pressure 7. Diabetes mellitus type II - patient's oral hypoglycemics held. Placed on long acting insulin, Accu-Cheks a.c. and at bedtime and covered with sliding scale insulin 8. DVT prophylaxis -SC heparin Total time of the visit including total time spent in counseling or coordination of care, (more than 50% of the total time, spent in obtaining medical information from nurses and other ancillary care providers), , review of labs and imaging is 35 minutes Clinical Impression(s) from Imaging Studies Abdomen/Pelvis CT 09/28/19 21:36 IMPRESSION: Perianal soft tissue thickening with associated fluid collection in the right gluteal cleft possibly representing an abscess. There is also precoccygeal soft tissue thickening and possibility of coexisting osteomyelitis cannot be excluded. MRI would be useful for further evaluation in this regard if clinically warranted Other findings as above Electronically Signed: Mao Mclean MD at 22:46 EDT , Service support , Chest X-Ray 09/28/19 21:38 IMPRESSION: Probable chronic pleural thickening at the lung bases.. No acute cardiopulmonary pathology Electronically Signed: Mao Mclean MD at 21:56 EDT , Service support , Foot X-Ray 09/28/19 22:49 IMPRESSION: Soft tissue swelling of the foot. Electronically Signed: Lenny Bowling DO at 23:41 EDT Tel [phone], Service support , Foot X-Ray 09/28/19 23:16 IMPRESSION: Soft tissue swelling of the foot. Electronically Signed: Lenny Bowling DO at 23:40 EDT Tel [phone], Service support , Pelvis MRI 09/29/19 13:31 IMPRESSION: Soft tissue abscess in the gluteal cleft with adjacent inflammation extending around the anus into the inferior margin of the coccyx. Osteomyelitis of the first coccygeal segment with chronic displacement of the distal 3 coccygeal segments. Mild iliacus bursitis bilaterally. No demonstrated osteomyelitis of the ischium. Microbiology Past 72 Hours 09/28/19 22:05 Blood Culture (Wb) - Right Hand Blood Culture - Preliminary 09/28/19 22:45 Urine, Clean Catch Urine Culture - Preliminary Mixed Gram Pos & Gram Neg Org Laboratory Results 09/29/19 18:11: POC Glucose 189 H 09/29/19 22:56: POC Glucose 190 H 09/30/19 01:14: Vancomycin Trough 7.7 09/30/19 05:33: WBC 15.1 H, RBC 4.12 L, Hgb 11.7 L, Hct 35.4 L, MCV 85.9, MCH 28.4, MCHC 33.1, RDW Std Deviation 46.8 H, RDW Coeff of Darrell 14.9 H, Plt Count 244, MPV 11.1 09/30/19 05:33: Sodium 136, Potassium 3.8, Chloride 105, Carbon Dioxide 24.0, Anion Gap 7, BUN 7, Creatinine 0.30 L, Estim Creat Clear Calc 373.63, Est GFR (MDRD) Af Amer 432, Est GFR (MDRD) Non-Af 357, BUN/Creatinine Ratio 23.2 H, Glucose 181 H, Calcium 8.2 L, Magnesium 1.9 09/30/19 05:45: POC Glucose 172 H 09/30/19 08:30: S.aureus Protein A PCR Pending, MRSA (PCR) Pending 09/30/19 12:27: POC Glucose 202 H Active Medications Acetaminophen (Tylenol) 650 mg PO Q6H PRN PRN PRN Reason: Pain Score 1-10/Temp > 100.7 F Last Admin: 09/29/19 22:09 Dose: 650 mg Documented by: Al Hydroxide/Mg Hydroxide (Mylanta Ii) 30 ml PO Q6H PRN PRN PRN Reason: Gastric Burning Albuterol Sulfate (Ventolin Aerosols) 2.5 mg INHALATION Q2H PRN PRN PRN Reason: SOB/Wheezing Calamine/Phenol (Calmoseptine Ointment) 1 applic TOPICAL BID [facility]; Protocol Last Admin: 09/30/19 09:15 Dose: 1 applicatio Documented by: Famotidine (Pepcid) 20 mg PO BID [facility] Last Admin: 09/30/19 09:13 Dose: 20 mg Documented by: Glucagon () 1 mg IM .X1 PRN PRN Reason: Hypoglycemia Guaifenesin (Robitussin) 10 ml PO Q4H PRN PRN PRN Reason: COUGH Sodium Chloride () 1,000 mls @ 150 mls/hr IV .Q6H40M [facility] Last Infusion: 09/30/19 14:52 Dose: Infused Documented by: Meropenem 1 gm/ Sodium (Chloride) 120 mls @ 33 mls/hr IV Q8 [facility] Last Infusion: 09/30/19 09:36 Dose: Infused Documented by: Vancomycin IV Pharmacy to Dose (1 ea/ Sodium Chloride) 500 mls @ 250 mls/hr IV X1 PRN; Protocol PRN Reason: Rx to Dose Sodium Chloride () 250 mls @ 15 mls/hr IV .[id number] PRN PRN Reason: Saline Flush Last Infusion: 09/30/19 09:36 Dose: 15 mls/hr Documented by: Sodium Chloride () 250 mls @ 15 mls/hr IV .[id number] PRN PRN Reason: Additional IVPB Infusion Dextrose (Dextrose 10%-Water) 250 mls @ 999 mls/hr IV .Q16M PRN; Protocol PRN Reason: HYPOGLYCEMIA Vancomycin HCl 2,000 mg/ (Sodium Chloride) 540 mls @ 250 mls/hr IV Q8H [facility] Last Infusion: 09/30/19 09:00 Dose: Infused Documented by: Insulin Glargine (Lantus ([facility])) 10 units SC BID [facility] Last Admin: 09/30/19 09:17 Dose: 10 units Documented by: Insulin Human Lispro (Humalog Kwikpen ([facility])) 0 unit SC Q6 [facility]; Protocol Last Admin: 09/30/19 12:29 Dose: 2 units Documented by: Lactobacillus Acidophilus (Acidophilus) 2 tablet PO TID [facility] Last Admin: 09/30/19 06:03 Dose: Not Given Documented by: Magnesium Hydroxide (Milk Of Magnesia) 30 ml PO DAILY PRN PRN PRN Reason: Constipation Melatonin (Melatonin) 3 mg PO QHS PRN PRN PRN Reason: INSOMNIA Morphine Sulfate () 4 mg IV Q3H PRN PRN PRN Reason: Pain Score 6-10/10 Nitroglycerin (Nitrostat) 0.4 mg SUBLINGUAL Q5M PRN PRN Reason: CARDIAC/CHEST PAIN Nutritional [facility] ([facility] - Mcpherson Fl[facility] Last Admin: 09/30/19 09:18 Dose: 1 packet Documented by: Nutritional Formula (Lactose Free) (Glucerna Shake) 120 ml PO 4X/DAY [facility] Last Admin: 09/30/19 09:18 Dose: 120 ml Documented by: Ondansetron HCl (Zofran) 4 mg IV Q8H PRN PRN PRN Reason: NAUSEA/VOMITING Oxycodone HCl (Oxyir) 10 mg PO Q4H PRN PRN PRN Reason: Pain Score 4-5/10 Last Admin: 09/29/19 01:55 Dose: 10 mg Documented by: Prochlorperazine Edisylate (Compazine Iv) 5 mg IV Q4H PRN PRN PRN Reason: Breakthrough Nausea/Vomiting Psyllium Hydrophilic Mucilloid (Metamucil) 1 packet PO DAILY [facility] Last Admin: 09/30/19 09:13 Dose: 1 packet Documented by: Senna/Docusate Sodium (Senokot-S, Temi-Colace) 2 tablet PO BID PRN PRN PRN Reason: Constipation Sodium Chloride () 10 - 40 ml IV UD PRN PRN Reason: SALINE FLUSH Throat Lozenges (Cepacol Sore Throat Lozenge) 1 lozenge MUCOUS MEM Q2H PRN PRN PRN Reason: SORE THROAT Inpatient E&M: 94818 Subs Hosp L3
--- NOTE | 2019-09-30 15:07 | PCM.DC.SUM ---
Discharge Date and Diagnosis Date of Admission: 09/28/19 Date of Discharge: 09/30/19 - Primary Discharge Diagnosis Active and Suspected Problems (Last Reviewed 08/31/19 @ 11:13 by Jazmín Alves) Septic shock (Acute) Gluteal abscess (Acute) - Secondary Discharge Diagnosis Chronic Problems (Last Reviewed 08/31/19 @ 11:13 by Jazmín Alves) Paraplegia (Chronic) Pressure sore of left ischium, stage 3 (Chronic) Right ischial pressure sore, stage 3 (Chronic) Urinary incontinence, nocturnal enuresis (Chronic) Diabetic ulcer of lower leg associated with type 2 diabetes mellitus, with fat layer exposed (Chronic) Diabetic ulcer of ankle associated with type 2 diabetes mellitus, with fat layer exposed (Chronic) Diabetic foot ulcer associated with type 2 diabetes mellitus, with fat layer exposed (Chronic) PVD (peripheral vascular disease) (Chronic) Left leg cellulitis (Chronic) Ulcer of left lower extremity with fat layer exposed (Chronic) Chronic ulcer of left heel (Chronic) Diarrhea (Chronic) Ulcer of right lower extremity with fat layer exposed (Chronic) Sebaceous cyst (Chronic) of right latter-day involving very lateral eyebrow Swelling, mass, or lump on face (Chronic) Type 2 diabetes mellitus (Chronic) Hypersomnolence (Chronic) Urinary incontinence (Chronic) Lower limb ulcer (Chronic) Paralysis (Chronic) Cavernous hemangioma (Chronic) 10/2009 High blood pressure (Chronic) Diabetes (Chronic) 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 Septic shock secondary to bilateral gluteal abscess: On admission lactic acid about 4.8 -CT obtained on admission demonstrated Perianal soft tissue thickening with associated fluid collection in the right gluteal cleft possibly representing an abscess admitted to the intensive care unit managed with broad-spectrum antibiotic therapy with consultation placed to plastic surgery, infectious disease as well as networking technology instructor and were sent on admission. 09/29: MRI of pelvis without contrast was done which showed 5.9 x 7.3 x 9.6 cm consistent with abscess edema adjacent to abscess extending into around the anus and coccyx suggestive of osteomyelitis. Diffuse muscular atrophy. Patient is scheduled for surgery in the morning but he refused it. Overall, abscess, MRI finding and requirement of surgery discussed with the patient and his . The patient and his wanted to get transfer to [facility]. Transfer call to the [facility] made and hospital course discussed with Dr. Philomena Francisco, surgeon correspondence transcriber [facility]. Final wound buttock Gram stain culture is pending but growing gram-positive cocci. Urine culture shows mixed gram-positive and gram-negative organisms suggestive of contamination. 2. Necrotic left heel ulcer -Patient seen in consultation by Dr. Thacker with podiatry 3. Osteomyelitis as per MRI of coccyx region: 4. History of T7 cavernous hemangioma with subsequent paraplegia, urinary incontinence and constipation ?Supportive care. 5. Obesity BMI 43.5 -Weight loss advised 6. Essential hypertension -Patient antihypertensives placed on hold on admission in view of his low blood pressure 7. Diabetes mellitus type II - patient's oral hypoglycemics held. Placed on long acting insulin, Accu-Cheks a.c. and at bedtime and covered with sliding scale insulin 8. DVT prophylaxis -SC heparin Patient is discharged/transferred to [facility]. Total time spent, exact 35 minutes on dis coordination of care with nurses and ancillary staff, coordination of care with salesforce consultant, exchange of clinical information with accepting surgeon Dr. Philomena Francisco, review of imaging and blood tests Subjective: See progress note of today. - Physical Exam Vitals/I&O's: Vital Signs Temp Pulse Resp BP Pulse Ox 97.9 F 101 H 20 H 147/87 H 96 09/30/19 09:02 09/30/19 09:02 09/30/19 09:02 09/30/19 09:02 09/30/19 09:02 Oxygen Delivery Method Room Air Weight: 320 lb 1.779 oz Body Mass Index (BMI) 43.4 Intake and Output for Last 24 Hours 09/28/19 09/29/19 09/30/19 23:59 23:59 23:59 Intake Total 9269.55 / 9269.55 2310.75 / 2310.75 Output Total 2875 / 2875 3100 / 3100 Balance 6394.55 / 6394.55 -789.25 / -789.25 Microbiology Past 72 Hours 09/28/19 22:05 Blood Culture (Wb) - Right Hand Blood Culture - Preliminary 09/28/19 22:45 Urine, Clean Catch Urine Culture - Preliminary Mixed Gram Pos & Gram Neg Org Laboratory Results 09/29/19 18:11: POC Glucose 189 H 09/29/19 22:56: POC Glucose 190 H 09/30/19 01:14: Vancomycin Trough 7.7 09/30/19 05:33: WBC 15.1 H, RBC 4.12 L, Hgb 11.7 L, Hct 35.4 L, MCV 85.9, MCH 28.4, MCHC 33.1, RDW Std Deviation 46.8 H, RDW Coeff of Darrell 14.9 H, Plt Count 244, MPV 11.1 09/30/19 05:33: Sodium 136, Potassium 3.8, Chloride 105, Carbon Dioxide 24.0, Anion Gap 7, BUN 7, Creatinine 0.30 L, Estim Creat Clear Calc 373.63, Est GFR (MDRD) Af Amer 432, Est GFR (MDRD) Non-Af 357, BUN/Creatinine Ratio 23.2 H, Glucose 181 H, Calcium 8.2 L, Magnesium 1.9 09/30/19 05:45: POC Glucose 172 H 09/30/19 12:27: POC Glucose 202 H Current Medications Acetaminophen (Tylenol) 650 mg PO Q6H PRN PRN PRN Reason: Pain Score 1-10/Temp > 100.7 F Last Admin: 09/29/19 22:09 Dose: 650 mg Documented by: Al Hydroxide/Mg Hydroxide (Mylanta Ii) 30 ml PO Q6H PRN PRN PRN Reason: Gastric Burning Albuterol Sulfate (Ventolin Aerosols) 2.5 mg INHALATION Q2H PRN PRN PRN Reason: SOB/Wheezing Calamine/Phenol (Calmoseptine Ointment) 1 applic TOPICAL BID [facility]; Protocol Last Admin: 09/30/19 09:15 Dose: 1 applicatio Documented by: Famotidine (Pepcid) 20 mg PO BID [facility] Last Admin: 09/30/19 09:13 Dose: 20 mg Documented by: Glucagon () 1 mg IM .X1 PRN PRN Reason: Hypoglycemia Guaifenesin (Robitussin) 10 ml PO Q4H PRN PRN PRN Reason: COUGH Sodium Chloride () 1,000 mls @ 150 mls/hr IV .[id number] [facility] Last Infusion: 09/30/19 09:16 Dose: 150 mls/hr Documented by: Meropenem 1 gm/ Sodium (Chloride) 120 mls @ 33 mls/hr IV Q8 JAVAD Last Infusion: 09/30/19 09:36 Dose: Infused Documented by: Vancomycin IV Pharmacy to Dose (1 ea/ Sodium Chloride) 500 mls @ 250 mls/hr IV X1 PRN; Protocol PRN Reason: Rx to Dose Sodium Chloride () 250 mls @ 15 mls/hr IV .[id number] PRN PRN Reason: Saline Flush Last Infusion: 09/30/19 09:36 Dose: 15 mls/hr Documented by: Sodium Chloride () 250 mls @ 15 mls/hr IV .[id number] PRN PRN Reason: Additional IVPB Infusion Dextrose (Dextrose 10%-Water) 250 mls @ 999 mls/hr IV .Q16M PRN; Protocol PRN Reason: HYPOGLYCEMIA Vancomycin HCl 2,000 mg/ (Sodium Chloride) 540 mls @ 250 mls/hr IV Q8H [facility] Last Infusion: 09/30/19 09:00 Dose: Infused Documented by: Insulin Glargine (Lantus (Bkc)) 10 units SC BID [facility] Last Admin: 09/30/19 09:17 Dose: 10 units Documented by: Insulin Human Lispro (Humalog Kwikpen (Bk)) 0 unit SC Q6 [facility]; Protocol Last Admin: 09/30/19 12:29 Dose: 2 units Documented by: Lactobacillus Acidophilus (Acidophilus) 2 tablet PO TID [facility] Last Admin: 09/30/19 06:03 Dose: Not Given Documented by: Magnesium Hydroxide (Milk Of Magnesia) 30 ml PO DAILY PRN PRN PRN Reason: Constipation Melatonin (Melatonin) 3 mg PO QHS PRN PRN PRN Reason: INSOMNIA Morphine Sulfate () 4 mg IV Q3H PRN PRN PRN Reason: Pain Score 6-10/10 Nitroglycerin (Nitrostat) 0.4 mg SUBLINGUAL Q5M PRN PRN Reason: CARDIAC/CHEST PAIN Nutritional Formula (Tang - [place] Flavor) [facility] Last Admin: 09/30/19 09:18 Dose: 1 packet Documented by: Nutritional Formula (Lactose Free) (Glucerna Shake) 120 ml PO 4X/DAY [facility] Last Admin: 09/30/19 09:18 Dose: 120 ml Documented by: Ondansetron HCl (Zofran) 4 mg IV Q8H PRN PRN PRN Reason: NAUSEA/VOMITING Oxycodone HCl (Oxyir) 10 mg PO Q4H PRN PRN PRN Reason: Pain Score 4-5/10 Last Admin: 09/29/19 01:55 Dose: 10 mg Documented by: Prochlorperazine Edisylate (Compazine Iv) 5 mg IV Q4H PRN PRN PRN Reason: Breakthrough Nausea/Vomiting Psyllium Hydrophilic Mucilloid (Metamucil) 1 packet PO DAILY [facility] Last Admin: 09/30/19 09:13 Dose: 1 packet Documented by: Senna/Docusate Sodium (Senokot-S, Temi-Colace) 2 tablet PO BID PRN PRN PRN Reason: Constipation Sodium Chloride () 10 - 40 ml IV UD PRN PRN Reason: SALINE FLUSH Throat Lozenges (Cepacol Sore Throat Lozenge) 1 lozenge MUCOUS MEM Q2H PRN PRN PRN Reason: SORE THROAT Home Medications: Medications to take at Discharge L.acidoph,Paracasei, B.lactis [Probiotic] 1 ea PO DAILY 09/29/19 Psyllium [Metamucil] 1 packet PO DAILY 09/29/19 Primary Care Physician: Lee Andersen MD [Primary Care Provider] - Medical Necessity - Tobacco Use Smoking Status: Former smoker - Patient quit cigarette tobacco usage approximately 4 months prior to current presentation. Tobacco Use: Non-smoker Meaningful Use Info Meaningful Use Diagnoses (Choose all that apply): None applicable Please cancel the billing charge of today's progress note of same date Inpatient E&M: [id number] [facility]
[2019-09-30 15:42] LABS: M R Staph aureus DNA By PCR Negative (Negative); Probe Check PASS; Specimen Processing Control PASS; Staph aureus DNA By PCR NEGATIVE (Negative)
[2019-09-30 16:34] VITALS: BP 132/77; PULSE 99; RESP 18; TEMP 36.8; O2SAT 98
[2019-09-30 16:46] LABS: Bedside Glucose 221 mg/dL (70-110)
--- NOTE | 2019-09-30 17:49 | PCM.HP.ID ---
Problem List (1) Gluteal abscess Status: Acute Reason for Consult: osteo Consulted by: Dr. Manudjano History of Present Illness: The patient is a 34 year old M with paraplegia, chronic wounds, and recurrent osteo. Reports a month of fever, not feeling well. Follows at wound center, reports wounds have been stable, no recent abx. No abd pain, n/v/d. Refusing surgery here, requesting transfer. Reports diarrhea with amox in the past. Has received cefazolin here in the past. Now on vanc/tori. Imaging showed osteo and abscess. Full ROS Performed and neg except as noted above. - Medical History Past Medical History (Chronic Problems): Chronic Problems (Last Reviewed 08/31/19 @ 11:13 by Jazmín Alves) Paraplegia (Chronic) Pressure sore of left ischium, stage 3 (Chronic) Right ischial pressure sore, stage 3 (Chronic) Urinary incontinence, nocturnal enuresis (Chronic) Diabetic ulcer of lower leg associated with type 2 diabetes mellitus, with fat layer exposed (Chronic) Diabetic ulcer of ankle associated with type 2 diabetes mellitus, with fat layer exposed (Chronic) Diabetic foot ulcer associated with type 2 diabetes mellitus, with fat layer exposed (Chronic) PVD (peripheral vascular disease) (Chronic) Left leg cellulitis (Chronic) Ulcer of left lower extremity with fat layer exposed (Chronic) Chronic ulcer of left heel (Chronic) Diarrhea (Chronic) Ulcer of right lower extremity with fat layer exposed (Chronic) 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 Swelling, mass, or lump on face (Chronic) Type 2 diabetes mellitus (Chronic) Hypersomnolence (Chronic) Urinary incontinence (Chronic) Lower limb ulcer (Chronic) Paralysis (Chronic) Cavernous hemangioma (Chronic) 10/2009 High blood pressure (Chronic) Diabetes (Chronic) 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) Allergies/Adverse Reactions: Allergies amoxicillin Adverse Reaction (Verified 09/28/19 21:06) Diarrhea Home Medications: Ambulatory Orders Medication Instructions Recorded L.acidoph,Paracasei, B.lactis 1 ea PO DAILY 09/29/19 [Probiotic] Psyllium [Metamucil] 1 packet PO DAILY 09/29/19 - Social History SMOKING STATUS:: Former smoker Vital Signs Temp Pulse Resp BP Pulse Ox 98.2 F 99 18 132/77 H 98 09/30/19 16:34 09/30/19 16:34 09/30/19 16:34 09/30/19 16:34 09/30/19 16:34 Oxygen Delivery Method Room Air Weight: 145.2 kg Body Mass Index (BMI) 43.4 Microbiology Past 72 Hours 09/30/19 08:30 Gram Stain - Final Wound - Buttock 09/28/19 22:05 Blood Culture - Preliminary Blood Culture (Wb) - Right Hand 09/28/19 22:45 Urine Culture - Preliminary Urine, Clean Catch Mixed Gram Pos & Gram Neg Org Laboratory Tests Past 24 Hrs 09/30/19 09/30/19 09/30/19 01:14 05:33 05:33 WBC 15.1 H RBC 4.12 L Hgb 11.7 L Hct 35.4 L MCV 85.9 MCH 28.4 MCHC 33.1 RDW Std Deviation 46.8 H RDW Coeff of Darrell 14.9 H Plt Count 244 MPV 11.1 Sodium 136 Potassium 3.8 Chloride 105 Carbon Dioxide 24.0 Anion Gap 7 BUN 7 Creatinine 0.30 L Estim Creat Clear Calc 373.63 Est GFR (MDRD) Af Amer 432 Est GFR (MDRD) Non-Af 357 BUN/Creatinine Ratio 23.2 H Glucose 181 H Calcium 8.2 L Magnesium 1.9 Vancomycin Trough 7.7 S.aureus Protein A PCR MRSA (PCR) 09/30/19 08:30 WBC RBC Hgb Hct MCV MCH MCHC RDW Std Deviation RDW Coeff of Darrell Plt Count MPV Sodium Potassium Chloride Carbon Dioxide Anion Gap BUN Creatinine Estim Creat Clear Calc Est GFR (MDRD) Af Amer Est GFR (MDRD) Non-Af BUN/Creatinine Ratio Glucose Calcium Magnesium Vancomycin Trough S.aureus Protein A PCR NEGATIVE MRSA (PCR) Negative - Other Studies Radiology: [] reviewed Other Studies: [] Route of nutrition/ use of supplements: [] Nutritional Intake: [] IV Site: [] Lee Catheter: [] - Physical Exam General: Alert, Oriented x3, Cooperative, No apparent distress HEENT: Atraumatic, PERRLA, EOMI Neck: Supple, No Nodes Lungs: Clear to auscultation, Normal air movement Cardiovascular: Regular rate, Regular Rhythm Abdomen: Soft, Non Tender, Non-Distended, Obese Extremities: Edema Skin: Ulcer/ Wound - reviewed photos IV Site: Peripheral, without redness Musculoskeletal: No Tenderness to Palpation of Joints or Extremities Neurological: Cranial nerves II-XII grossly intact, - - paraplegic - Assessment/Plan Antibiotics: [] Assessment/Plan: [] Active and Suspected Problems (Last Reviewed 08/31/19 @ 11:13 by Jazmín Alves) Septic shock (Acute) Gluteal abscess (Acute) septic shock, pelvic osteo and abscess with DM and paraplegia - on vanc/tori. Needs surgical I&D, will be transferred. Reports diarrhea with amoxicillin. Did get cefazolin here in the past. Cont vanc/tori for now. Will follow, thank you.
--- NOTE | 2019-09-30 19:34 | NURSING ---
Report given to Melissa at this time at [facility].
== END 2019-09-30 20:10 | disposition short-term general hospital (02) | DRG 853 ==
LOC: ED 22:05 → ICU 23:57 → MS3 09-29 16:11
PROVIDERS: Internal Medicine; Admitting Provider Family Medicine; Emergency Provider Emergency Medicine; PCP Internal Medicine; Visit Provider Internal Medicine
DX: A41.9 Sepsis, unspecified organism (principal); L89.313 Pressure ulcer of right buttock, stage 3; L89.323 Pressure ulcer of left buttock, stage 3; R65.21 Severe sepsis with septic shock; G82.20 Paraplegia, unspecified; Z68.41 Body mass index [BMI] 40.0-44.9, adult; L02.31 Cutaneous abscess of buttock; L97.922 Non-pressure chronic ulcer of unspecified part of left lower leg with fat layer exposed; M46.28 Osteomyelitis of vertebra, sacral and sacrococcygeal region; L97.428 Non-pressure chronic ulcer of left heel and midfoot with other specified severity; E66.01 Morbid (severe) obesity due to excess calories; K59.00 Constipation, unspecified; Z87.891 Personal history of nicotine dependence; D18.09 Hemangioma of other sites; G47.33 Obstructive sleep apnea (adult) (pediatric); N39.44 Nocturnal enuresis; E11.621 Type 2 diabetes mellitus with foot ulcer; E11.622 Type 2 diabetes mellitus with other skin ulcer; I10 Essential (primary) hypertension; Z79.84 Long term (current) use of oral hypoglycemic drugs
CPT/HCPCS: 36415; 71045; 72195; 73630; 74176; 80048; 80053; 80202; 81001; 82962; 83036; 83605; 83735; 84100; 85025; 85027; 85610; 85652; 85730; 86140; 87040; 87070; 87077; 87086; 87088; 87186; 87205; 87640; 97802; 99251; 99285; J2185; J7030; J7040; J7050; A4216; G0463; J2405

== ENCOUNTER 2019-10-17 11:15 | Outpatient (RCR) | payer MEDICARE, OTHER, SELFPAY ==
[2019-09-29 01:18] VITALS: BMI 43.4
[2019-10-11 19:39] LABS: Absolute Lymphocyte Count 2.46 X10^3/uL (0.83-4.51); Absolute Neutrophil Count 8.6 X10^3/uL (2.0-7.7); Basophil% 0.8 % (0-1); Eosinophil# 0.17 X10^3/uL; Eosinophils% 1.4 % (0-5); Hemoglobin 13.7 g/dL (13.0-16.5); Lymphocyte # 2.46 X10^3/ul (4.0); Lymphocyte % 20.2 % (19-41); Mean Corp Hgb Conc 31.1 g/dL (32-36); Mean Corpuscular Hgb 27.5 pg (27.0-32.0); Mean Corpuscular Volume 88.4 fL (80-94); Monocyte# 0.74 X10^3/uL; Monocyte% 6.1 % (0-10); NRBC Flagged by Analyzer 0 % (0-5); Neutrophil # 8.59 X10^3/uL (2.7-7.7); Neutrophil % 70.7 % (47-70); Platelet Count 363 K/mm3 (150-450); RBC Distribution Width CV 14.7 % (11.6-14.6); RBC Distribution Width SD 47.6 fl (35.1-43.9); Red Blood Count 4.98 M/mm3 (4.6-6.2); White Blood Count 12.2 K/mm3 (4.4-11.0)
[2019-10-11 19:48] LABS: AST(SGOT) 27 U/L (15-37); Alanine Aminotransfer ALT/SGPT 71 U/L (16-61); Albumin, Serum 3.3 g/dL (3.2-5.0); Alkaline Phosphatase 145 U/L (45-117); BUN 14 mg/dL (7-18); Creatinine, Serum 0.58 mg/dL (0.70-1.30); EST Glomerular Filtration Rate 168 mL/min (>60); Est Glom Filt Rate - Afr Amer 203 mL/min (>60); Globulin 4.6 g/dL (2.2-4.2); Protein, Total 7.9 g/dL (6.4-8.2)
[2019-10-11 19:50] LABS: Erythrocyte Sedimentation Rate 66 mm/hr (0-15)
[2019-10-17 12:52] LABS: Erythrocyte Sedimentation Rate 43 mm/hr (0-15)
[2019-10-17 12:54] LABS: Absolute Lymphocyte Count 1.96 X10^3/uL (0.83-4.51); Absolute Neutrophil Count 6.1 X10^3/uL (2.0-7.7); Basophil# 0.07 X10^3/uL; Basophil% 0.8 % (0-1); Eosinophil# 0.28 X10^3/uL; Eosinophils% 3.1 % (0-5); Hematocrit 44.5 % (40-54); Hemoglobin 14.5 g/dL (13.0-16.5); Lymphocyte # 1.96 X10^3/ul (4.0); Lymphocyte % 21.8 % (19-41); Mean Corp Hgb Conc 32.6 g/dL (32-36); Mean Corpuscular Hgb 28.5 pg (27.0-32.0); Mean Corpuscular Volume 87.6 fL (80-94); Mean Platelet Vol. 11.4 fl (6.2-12.0); Monocyte# 0.55 X10^3/uL; Monocyte% 6.1 % (0-10); NRBC Flagged by Analyzer 0 % (0-5); Neutrophil % 67.9 % (47-70); Platelet Count 282 K/mm3 (150-450); Red Blood Count 5.08 M/mm3 (4.6-6.2)
[2019-10-17 13:03] LABS: AST(SGOT) 34 U/L (15-37); Alanine Aminotransfer ALT/SGPT 72 U/L (16-61); Albumin, Serum 3.4 g/dL (3.2-5.0); Alkaline Phosphatase 142 U/L (45-117); BUN 9 mg/dL (7-18); Bilirubin, Direct 0.09 mg/dL (0.00-0.30); Creatinine, Serum 0.42 mg/dL (0.70-1.30); EST Glomerular Filtration Rate 244 mL/min (>60); Est Glom Filt Rate - Afr Amer 295 mL/min (>60); Globulin 4.2 g/dL (2.2-4.2); Protein, Total 7.6 g/dL (6.4-8.2)
== END 2019-10-17 18:00 | disposition home or self-care (01) ==
LOC: HHLAB 11:15
DX: Z45.2 Encounter for adjustment and management of vascular access device (principal); L02.31 Cutaneous abscess of buttock; M86.9 Osteomyelitis, unspecified; L89.212 Pressure ulcer of right hip, stage 2; L89.620 Pressure ulcer of left heel, unstageable; E11.9 Type 2 diabetes mellitus without complications; I10 Essential (primary) hypertension; G82.22 Paraplegia, incomplete; D18.09 Hemangioma of other sites; L90.5 Scar conditions and fibrosis of skin; G47.33 Obstructive sleep apnea (adult) (pediatric); E66.9 Obesity, unspecified; N31.8 Other neuromuscular dysfunction of bladder; S80.922D Unspecified superficial injury of left lower leg, subsequent encounter; E78.5 Hyperlipidemia, unspecified; Z79.2 Long term (current) use of antibiotics; Z51.81 Encounter for therapeutic drug level monitoring; Z87.440 Personal history of urinary (tract) infections
CPT/HCPCS: 80076; 82565; 84520; 85025; 85652; 86140

== ENCOUNTER 2019-10-31 12:10 | Outpatient (RCR) | payer MEDICARE, OTHER, SELFPAY ==
[2019-09-29 01:18] VITALS: BMI 43.4
[2019-10-24 15:24] LABS: Absolute Lymphocyte Count 2.14 X10^3/uL (0.83-4.51); Absolute Neutrophil Count 6.6 X10^3/uL (2.0-7.7); Basophil# 0.05 X10^3/uL; Basophil% 0.5 % (0-1); Eosinophil# 0.26 X10^3/uL; Eosinophils% 2.6 % (0-5); Hematocrit 45.4 % (40-54); Hemoglobin 14.7 g/dL (13.0-16.5); Lymphocyte # 2.14 X10^3/ul (4.0); Lymphocyte % 21.7 % (19-41); Mean Corp Hgb Conc 32.4 g/dL (32-36); Mean Corpuscular Hgb 28.3 pg (27.0-32.0); Mean Corpuscular Volume 87.3 fL (80-94); Mean Platelet Vol. 12.2 fl (6.2-12.0); Monocyte# 0.73 X10^3/uL; Monocyte% 7.4 % (0-10); NRBC Flagged by Analyzer 0 % (0-5); Neutrophil # 6.64 X10^3/uL (2.7-7.7); Neutrophil % 67.4 % (47-70); Platelet Count 234 K/mm3 (150-450); RBC Distribution Width CV 14.9 % (11.6-14.6); RBC Distribution Width SD 47.8 fl (35.1-43.9); White Blood Count 9.9 K/mm3 (4.4-11.0)
[2019-10-24 15:32] LABS: Erythrocyte Sedimentation Rate 42 mm/hr (0-15)
[2019-10-24 16:10] LABS: AST(SGOT) 25 U/L (15-37); Alanine Aminotransfer ALT/SGPT 62 U/L (16-61); Albumin, Serum 3.6 g/dL (3.2-5.0); Alkaline Phosphatase 147 U/L (45-117); BUN 10 mg/dL (7-18); Bilirubin, Direct 0.06 mg/dL (0.00-0.30); Creatinine, Serum 0.41 mg/dL (0.70-1.30); EST Glomerular Filtration Rate 249 mL/min (>60); Est Glom Filt Rate - Afr Amer 302 mL/min (>60); Globulin 4.4 g/dL (2.2-4.2)
[2019-10-31 15:14] LABS: Erythrocyte Sedimentation Rate 39 mm/hr (0-15)
[2019-10-31 15:16] LABS: AST(SGOT) 26 U/L (15-37); Alanine Aminotransfer ALT/SGPT 71 U/L (16-61); Albumin, Serum 3.4 g/dL (3.2-5.0); Alkaline Phosphatase 142 U/L (45-117); BUN 13 mg/dL (7-18); Bilirubin, Direct 0.11 mg/dL (0.00-0.30); Creatinine, Serum 0.45 mg/dL (0.70-1.30); EST Glomerular Filtration Rate 227 mL/min (>60); Est Glom Filt Rate - Afr Amer 275 mL/min (>60); Globulin 4.2 g/dL (2.2-4.2); Protein, Total 7.6 g/dL (6.4-8.2)
[2019-10-31 15:17] LABS: Absolute Lymphocyte Count 2.03 X10^3/uL (0.83-4.51); Absolute Neutrophil Count 6.8 X10^3/uL (2.0-7.7); Basophil# 0.05 X10^3/uL; Basophil% 0.5 % (0-1); Eosinophil# 0.26 X10^3/uL; Eosinophils% 2.6 % (0-5); Hematocrit 44.9 % (40-54); Hemoglobin 14.2 g/dL (13.0-16.5); Lymphocyte # 2.03 X10^3/ul (4.0); Lymphocyte % 20.4 % (19-41); Mean Corp Hgb Conc 31.6 g/dL (32-36); Mean Corpuscular Hgb 27.5 pg (27.0-32.0); Mean Platelet Vol. 11.8 fl (6.2-12.0); Monocyte# 0.76 X10^3/uL; Monocyte% 7.6 % (0-10); NRBC Flagged by Analyzer 0 % (0-5); Neutrophil % 68.3 % (47-70); Platelet Count 257 K/mm3 (150-450); RBC Distribution Width CV 15.2 % (11.6-14.6); RBC Distribution Width SD 48.4 fl (35.1-43.9); Red Blood Count 5.16 M/mm3 (4.6-6.2)
== END 2019-11-17 18:00 | disposition home or self-care (01) ==
LOC: HHLAB 12:10
PROVIDERS: PCP Internal Medicine
DX: L02.31 Cutaneous abscess of buttock (principal); Z45.2 Encounter for adjustment and management of vascular access device
CPT/HCPCS: 80076; 82565; 84520; 85025; 85652; 86140

== ENCOUNTER → 2019-11-08 13:40 | Outpatient (CLI) | payer MEDICARE, OTHER, SELFPAY ==
[2019-09-29 01:18] VITALS: BMI 43.4
[2019-11-08 14:01] LABS: Absolute Lymphocyte Count 2.04 X10^3/uL (0.83-4.51); Absolute Neutrophil Count 9.2 X10^3/uL (2.0-7.7); Basophil# 0.07 X10^3/uL; Basophil% 0.6 % (0-1); Eosinophil# 0.17 X10^3/uL; Eosinophils% 1.4 % (0-5); Hematocrit 44.5 % (40-54); Hemoglobin 14.3 g/dL (13.0-16.5); Lymphocyte # 2.04 X10^3/ul (4.0); Lymphocyte % 16.7 % (19-41); Mean Corp Hgb Conc 32.1 g/dL (32-36); Mean Corpuscular Hgb 28.1 pg (27.0-32.0); Mean Corpuscular Volume 87.6 fL (80-94); Mean Platelet Vol. 11.6 fl (6.2-12.0); Monocyte# 0.69 X10^3/uL; Monocyte% 5.6 % (0-10); NRBC Flagged by Analyzer 0 % (0-5); Neutrophil # 9.21 X10^3/uL (2.7-7.7); Neutrophil % 75.2 % (47-70); Platelet Count 306 K/mm3 (150-450); RBC Distribution Width CV 14.6 % (11.6-14.6); RBC Distribution Width SD 47.5 fl (35.1-43.9); Red Blood Count 5.08 M/mm3 (4.6-6.2); White Blood Count 12.2 K/mm3 (4.4-11.0)
[2019-11-08 14:14] LABS: Erythrocyte Sedimentation Rate 47 mm/hr (0-15)
[2019-11-08 14:28] LABS: AST(SGOT) 31 U/L (15-37); Alanine Aminotransfer ALT/SGPT 79 U/L (16-61); Albumin, Serum 3.5 g/dL (3.2-5.0); Alkaline Phosphatase 145 U/L (45-117); BUN 10 mg/dL (7-18); Bilirubin, Direct 0.16 mg/dL (0.00-0.30); Creatinine, Serum 0.41 mg/dL (0.70-1.30); EST Glomerular Filtration Rate 248 mL/min (>60); Est Glom Filt Rate - Afr Amer 300 mL/min (>60); Globulin 4.3 g/dL (2.2-4.2); Protein, Total 7.8 g/dL (6.4-8.2)
== END ==
PROVIDERS: PCP Internal Medicine
DX: L02.31 Cutaneous abscess of buttock (principal); Z45.2 Encounter for adjustment and management of vascular access device
CPT/HCPCS: 80076; 82565; 84520; 85025; 85652; 86140

== ENCOUNTER → 2019-12-20 | Outpatient (CLI) | payer MEDICARE, SELFPAY ==
[2019-12-20 14:56] VITALS: BMI 43.4
[2019-12-20 15:51] LABS: Bacteria 0 SEEN /hpf (None Seen); Mucous, Urine 0 SEEN /hpf (<or=2+); Red Blood Cells-Urine 0 SEEN /hpf (0-5)
[2019-12-20 16:35] LABS: Absolute Lymphocyte Count 0.96 X10^3/uL (0.83-4.51); Absolute Neutrophil Count 11.5 X10^3/uL (2.0-7.7); Basophil# 0.05 X10^3/uL; Basophil% 0.4 % (0-1); Color, Urine Yellow (Yellow); Eosinophil# 0.04 X10^3/uL; Eosinophils% 0.3 % (0-5); Glucose, Dipstick Normal (Normal); Hematocrit 44.1 % (40-54); Hemoglobin 14.1 g/dL (13.0-16.5); Ketone-Dipstick 5 mg/dl (Negative); Leukocyte Esterase-Dipstick 500 /ul (Negative); Lymphocyte # 0.96 X10^3/ul (4.0); Lymphocyte % 7.2 % (19-41); Mean Corpuscular Hgb 28.2 pg (27.0-32.0); Mean Corpuscular Volume 88.2 fL (80-94); Mean Platelet Vol. 11.6 fl (6.2-12.0); Monocyte# 0.72 X10^3/uL; Monocyte% 5.4 % (0-10); NRBC Flagged by Analyzer 0 % (0-5); Neutrophil # 11.51 X10^3/uL (2.7-7.7); Neutrophil % 86.3 % (47-70); Nitrite-Dipstick Negative (Negative); Occult Blood-Urine 10 /ul (Negative); Platelet Count 288 K/mm3 (150-450); Protein-Dipstick Negative (Negative); RBC Distribution Width CV 14.2 % (11.6-14.6); RBC Distribution Width SD 45.5 fl (35.1-43.9); Urine Bilirubin Dipstick Negative (Negative); Urine Clarity Sl. Cloudy (Clear); Urine Urobilinogen Normal (Normal); White Blood Count 13.3 K/mm3 (4.4-11.0)
[2019-12-20 16:43] LABS: Squamous Epithelial Cells - UA 0-5 SEEN /hpf (0-5); White Blood Cells 10-25 SEEN /hpf (0-5)
[2019-12-20 17:06] LABS: ALB/GLOB Ratio 0.7 RATIO (0.9-2.4); AST(SGOT) 23 U/L (15-37); Alanine Aminotransfer ALT/SGPT 69 U/L (16-61); Albumin, Serum 3.2 g/dL (3.2-5.0); Alkaline Phosphatase 150 U/L (45-117); Anion Gap 10 (5-15); BUN 6 mg/dL (7-18); BUN/Creat Ratio 12.1 RATIO (10-20); Calcium,Total 9.1 mg/dL (8.5-10.1); Chloride 99 mmol/L (98-107); EST Glomerular Filtration Rate 201 mL/min (>60); Est Glom Filt Rate - Afr Amer 243 mL/min (>60); Globulin 4.6 g/dL (2.2-4.2); Glucose 141 mg/dL (74-106); Protein, Total 7.8 g/dL (6.4-8.2); Sodium Level 134 mmol/L (136-145)
[2019-12-20 17:14] LABS: Microalbumin,Random Urine 10.6 mg/L (NO RANGE EST.); Microalbumin:Creatinine Ratio 29.8 mg/g CRE (<30 mg/g CRE)
== END | disposition home or self-care (01) ==
LOC: LABSPEC 15:35
PROVIDERS: PCP Internal Medicine; Referring Provider Internal Medicine; Visit Provider Internal Medicine
DX: N39.0 Urinary tract infection, site not specified (principal); E11.9 Type 2 diabetes mellitus without complications
CPT/HCPCS: 36415; 80053; 81001; 82043; 82570; 83036; 85025; 87086

== ENCOUNTER → 2020-03-08 12:04 | Outpatient (CLI) | payer MEDICARE, SELFPAY ==
[2020-03-08 11:24] VITALS: BMI 43.4
[2020-03-08 12:13] LABS: Bacteria 0 SEEN /hpf (None Seen); Mucous, Urine 0 SEEN /hpf (<or=2+)
[2020-03-08 15:43] LABS: Color, Urine Yellow (Yellow); Glucose, Dipstick Normal (Normal); Ketone-Dipstick 5 mg/dl (Negative); Leukocyte Esterase-Dipstick 100 /ul (Negative); Nitrite-Dipstick Negative (Negative); Occult Blood-Urine 25 /ul (Negative); Protein-Dipstick Negative (Negative); Specific Gravity, Urine 1.005 (1.002-1.030); Urine Bilirubin Dipstick Negative (Negative); Urine Clarity Sl. Cloudy (Clear); Urine Urobilinogen Normal (Normal)
[2020-03-08 15:51] LABS: Red Blood Cells-Urine 0-5 SEEN /hpf (0-5); Squamous Epithelial Cells - UA 0-5 SEEN /hpf (0-5); White Blood Cells 5-10 SEEN /hpf (0-5)
== END ==
PROVIDERS: PCP Internal Medicine; Referring Provider Nurse Practitioner Family; Visit Provider Nurse Practitioner Family
DX: R82.90 Unspecified abnormal findings in urine (principal)
CPT/HCPCS: 81001; 87086; 87088

== ENCOUNTER 2020-03-16 11:09 | Outpatient (RCR) | payer MEDICARE, OTHER, SELFPAY ==
[2019-09-29 01:18] VITALS: BMI 43.4
[2019-10-19 00:29] VITALS: BP 144/91; PULSE 122; RESP 16; TEMP 36.6
[2020-03-08 11:24] VITALS: BMI 43.4
[2020-03-16 11:38] VITALS: BP 149/79; PULSE 102; RESP 18; TEMP 36.6; BMI 43.4
--- NOTE | 2020-03-16 15:05 | HP.PCM_ITS ---
(1) Ulcer of sacral region, stage 2 Status: Chronic Current Visit: Yes Code(s): L98.429 - Non-pressure chronic ulcer of back with unspecified severity (2) Obesity Status: Chronic Current Visit: Yes Qualifiers: Obesity type: unspecified obesity type Obesity classification: adult class 3 (BMI >= 40) Serious obesity comorbidity presence: with serious comorbidity Body mass index: BMI 40.0-44.9 Qualified Code(s): E66.01 - Morbid (severe) obesity due to excess calories; Z68.41 - Body mass index (BMI) 40.0-44.9, adult Code(s): E66.9 - Obesity, unspecified (3) Paraplegia Status: Chronic Current Visit: Yes Code(s): G82.20 - Paraplegia, unspecified (4) Pressure injury of right buttock, stage 2 Status: Chronic Current Visit: Yes Code(s): L89.312 - Pressure ulcer of right buttock, stage 2 (5) Gluteal abscess Status: Acute Current Visit: No Code(s): L02.31 - Cutaneous abscess of buttock (6) Diabetic ulcer of lower leg associated with type 2 diabetes mellitus, with fat layer exposed Status: Chronic Current Visit: Yes Code(s): E11.622 - Type 2 diabetes mellitus with other skin ulcer; L97.902 - Non-pressure chronic ulcer of unspecified part of unspecified lower leg with fat layer exposed (7) Diabetic foot ulcer associated with type 2 diabetes mellitus, with fat layer exposed Status: Chronic Current Visit: Yes Qualifiers: Diabetic foot ulcer location: heel Laterality: left Qualified Code(s): E11.621 - Type 2 diabetes mellitus with foot ulcer; L97.422 - Non-pressure chronic ulcer of left heel and midfoot with fat layer exposed Code(s): E11.621 - Type 2 diabetes mellitus with foot ulcer; L97.502 - Non- pressure chronic ulcer of other part of unspecified foot with fat layer exposed (8) Ulcer of left lower extremity with fat layer exposed Status: Chronic Current Visit: Yes Code(s): L97.922 - Non-pressure chronic ulcer of unspecified part of left lower leg with fat layer exposed (9) Chronic ulcer of left heel Status: Chronic Current Visit: Yes Qualifiers: Non-pressure ulcer stage: with fat layer exposed Code(s): L97.429 - Non-pressure chronic ulcer of left heel and midfoot with unspecified severity (10) Type 2 diabetes mellitus Status: Chronic Current Visit: Yes Qualifiers: Diabetes mellitus day care home provider insulin use: without day care home provider use Diabetes mellitus complication status: with skin complications Diabetes mellitus complication detail: with other skin ulcer Qualified Code(s): E11.622 - Type 2 diabetes mellitus with other skin ulcer Code(s): E11.9 - Type 2 diabetes mellitus without complications History of Present Illness Date of Service: 03/16/20 Chief Complaint: Ulcer on left posterior heel, left lateral leg and gluteal fold, temi-rectal ulcer and sacral ulcer History of Wound: Adiel is a 34 year old male who is wheelchair bound and pa raplegic. [facility] areas he is presenting for evaluation today. He has had his current ulcers for over 2 months. He has been treating the areas with silvercell dressings and recently was placed on an antibiotic by his PCP. The left lower leg ulcers appear to be from pressure. He is unsure of how they developed. His ulcers on his sacrum and right buttock are from pressure and friction from transferring from his wheelchair to chair with his slide board. He also has an area that was from a temi-rectal abscess that is still open and draining. He reports that he is independent in his ADL's but does have a nurse that comes to care for him daily in the morning for a short time daily. He has a history of Type 2 DM, last A1C 7.0% on 12/20/2019. He has been seen at both our wound healing center and [facility]'s in [place] in the past for previous uclers. He has previously received Apligraf to his ulcers of his lower legs but the last application was probably 9 months ago. The patient denies any fever, chills, nausea, vomiting, or diarrhea. Denies any signs of infection, including increasing pain, redness, swelling, or drainage from affected area. Past Medical History Past Medical History: Chronic Problems (Last Reviewed 01/17/20 @ 13:19 by ONUR Fuller) Ulcer of sacral region, stage 2 (Chronic) Obesity (Chronic) EDWIGE (obstructive sleep apnea) (Chronic) Overall AHI 102 events per hour Paraplegia (Chronic) Pressure injury of right buttock, stage 2 (Chronic) Pressure sore of left ischium, stage 3 (Chronic) Right ischial pressure sore, stage 3 (Chronic) Urinary incontinence, nocturnal enuresis (Chronic) Diabetic ulcer of lower leg associated with type 2 diabetes mellitus, with fat layer exposed (Chronic) Diabetic ulcer of ankle associated with type 2 diabetes mellitus, with fat layer exposed (Chronic) Diabetic foot ulcer associated with type 2 diabetes mellitus, with fat layer exposed (Chronic) PVD (peripheral vascular disease) (Chronic) Left leg cellulitis (Chronic) Ulcer of left lower extremity with fat layer exposed (Chronic) Chronic ulcer of left heel (Chronic) Diarrhea (Chronic) Ulcer of right lower extremity with fat layer exposed (Chronic) Sebaceous cyst (Chronic) of right jewish involving very lateral eyebrow Swelling, mass, or lump on face (Chronic) Type 2 diabetes mellitus (Chronic) Hypersomnolence (Chronic) Urinary incontinence (Chronic) Lower limb ulcer (Chronic) Paralysis (Chronic) Cavernous hemangioma (Chronic) 10/2009 High blood pressure (Chronic) Diabetes (Chronic) 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 Allergies/Adverse Reactions: Allergies amoxicillin Adverse Reaction (Verified 01/17/20 13:13) Diarrhea - Family History Maternal Family History: Family History (Last Reviewed 01/17/20 @ 13:19 by ONUR Fuller) Mother Hypertension Hypertension Paternal Family History: Family History (Last Reviewed 01/17/20 @ 13:19 by ONUR Fuller) Mother Hypertension - - Denies any marketed paternal family history including heart disease, sukhdeep betes or cancer. Lives: Alone Smoking Status: Light Smoker (<10/day) Tobacco Use: Cigarettes Alcohol: None Drugs: None Review of Systems Constitutional: Denies: Chills, Fever, Weight Change Eyes: Denies: Pain, Vision Change HEENT: Denies: Difficulty Hearing, Difficulty Swallowing, Sinus Congestion Cardiovascular: Denies: Chest Pain, Palpitations Respiratory: Denies: Cough, Shortness of Breath Gastrointestinal: Denies: Diarrhea, Nausea, Vomiting Genitourinary: Reports: Incontinence. Denies: Dysuria, Hematuria Skin: Reports: Wounds Neurological: Reports: - - paraplegia Endocrine: Denies: Heat/ Cold Intolerance, Polydipsia, Polyuria Hematologic/ Lymphatic: Denies: Easy Bruising, Easy Bleeding - Physical Exam Vital Signs Temp Pulse Resp BP 98 F 102 H 18 149/79 H 03/16/20 11:38 03/16/20 11:38 03/16/20 11:38 03/16/20 11:38 General: Alert, Oriented x3, Cooperative, No apparent distress HEENT: Atraumatic, Normocephalic Oral: Moist Mucosa Neck: Supple Lungs: Clear to auscultation Cardiovascular: Regular rate, Regular Rhythm Abdomen: Obese Extremities: Edema Skin: Ulcer/ Wound Wound Measurements and Assessment WC - Nurse 1 - General Ulcer Measurement Start: 03/16/20 11:21 Freq: Status: Active Protocol: Activity Type Activity Date Activity User E-Sign Co-Sign Detail Recorded Client Recorded Date Recorded By Document 03/16/20 11:24 RB [id number] 03/16/20 11:37 RB 03/16/20 11:24 Wound Center Nurse 1 [Ulcer Assessment] 10. R buttock fold -Combined with other wound No -Current Size (cm) - Length 2.3 -Current Size (cm) - Width 2.5 -Current Size (cm) - Depth 0.3 -Total Square Cm 5.75 -Tunneling No -Undermining/Tunneling No -Circular Undermining No -Exudate Amt Small -Exudate Type Serosanguineous -Wound Margin Thickened & Rolled Under -Granulation Amt Medium (34-66%) -Granulation Quality [place] -Slough/Fibrin Yes -Necrosis Amt Small (1-33%) -Necrotic Tissue Type Adherent Slough -Structure Exposed N/A -Texture (Temi-wound Skin Appearance) Assessed, Excoriation -Moisture (Temi-wound Skin Appearance Assessed ) -Color (Temi-wound Skin Appearance) Assessed -Temperature (Temi-wound Skin No Abnormality Appearance) (Pt Warm) -Tenderness on Palpation (Temi-wound No Skin Appearance) -Ulcer Cleansing Wound Cleanser -Foul Odor after Cleansing No 9. R sacral cluster -Combined with other wound No -Current Size (cm) - Length 8.7 -Current Size (cm) - Width 5 -Current Size (cm) - Depth 0.2 -Total Square Cm 43.5 -Tunneling No -Undermining/Tunneling No -Circular Undermining No -Exudate Amt Medium -Exudate Type Serosanguineous -Wound Margin Thickened & Rolled Under -Granulation Amt Medium (34-66%) -Granulation Quality [place] -Slough/Fibrin Yes -Necrosis Amt Small (1-33%) -Necrotic Tissue Type Adherent Slough -Structure Exposed N/A -Texture (Temi-wound Skin Appearance) Assessed, Excoriation -Moisture (Temi-wound Skin Appearance Assessed ) -Color (Temi-wound Skin Appearance) Assessed -Temperature (Temi-wound Skin No Abnormality Appearance) (Pt Warm) -Tenderness on Palpation (Temi-wound No Skin Appearance) -Ulcer Cleansing Wound Cleanser -Foul Odor after Cleansing No 8. L heel -Combined with other wound No -Current Size (cm) - Length 3.4 -Current Size (cm) - Width 3.5 -Current Size (cm) - Depth 0.2 -Total Square Cm 11.90 -Tunneling No -Undermining/Tunneling No -Circular Undermining No -Exudate Amt Medium -Exudate Type Serosanguineous -Wound Margin Thickened & Rolled Under -Granulation Amt Medium (34-66%) -Granulation Quality [place] -Slough/Fibrin Yes -Necrosis Amt Small (1-33%) -Necrotic Tissue Type Adherent Slough -Structure Exposed N/A -Texture (Temi-wound Skin Appearance) Assessed, Excoriation -Moisture (Temi-wound Skin Appearance Assessed ) -Color (Temi-wound Skin Appearance) Assessed -Temperature (Temi-wound Skin No Abnormality Appearance) (Pt Warm) -Tenderness on Palpation (Temi-wound No Skin Appearance) -Ulcer Cleansing Wound Cleanser -Foul Odor after Cleansing No 7. L lateral LE -Combined with other wound No -Current Size (cm) - Length 2.4 -Current Size (cm) - Width 1.2 -Current Size (cm) - Depth 0.2 -Total Square Cm 2.88 -Photo Taken Yes -Tunneling No -Undermining/Tunneling No -Circular Undermining No -Exudate Amt Medium -Exudate Type Serosanguineous -Wound Margin Thickened & Rolled Under -Granulation Amt Medium (34-66%) -Granulation Quality [place] -Slough/Fibrin Yes -Necrosis Amt Small (1-33%) -Necrotic Tissue Type Adherent Slough -Structure Exposed N/A -Texture (Temi-wound Skin Appearance) Assessed, Friable -Moisture (Temi-wound Skin Appearance Assessed ) -Color (Temi-wound Skin Appearance) Assessed -Temperature (Temi-wound Skin No Abnormality Appearance) (Pt Warm) -Tenderness on Palpation (Temi-wound No Skin Appearance) -Ulcer Cleansing Wound Cleanser -Foul Odor after Cleansing No [Edema Assessment] -Lower Limb Edema Present Yes -Right Calf (cm) 39.1 -Right Ankle (cm) 27 -Left Calf (cm) 38 -Left Ankle (cm) 25.2 WC - Nurse 2 - General Ulcer CM Notes Start: 03/16/20 11:21 Freq: Status: Active Protocol: Activity Type Activity Date Activity User E-Sign Co-Sign Detail Recorded Client Recorded Date Recorded By Document 03/16/20 11:55 MW [id number] 03/16/20 12:20 MW 03/16/20 11:55 Wound Center Nurse 2 [Procedure/Treatment] #11 right temi rectal -Time 12:06 -Correct Patient Yes -Correct Side, Site, Position Yes -Correct Procedure Yes -Procedure Performed Yes -Type of Procedure Debridement -Clinical Debridement Subcutaneous -Tissue Removed Subcutaneous -Post Debridement (cm) - Length 0.1 -Post Debridement (cm) - Width 0.1 -Post Debridement (cm) - Depth 1.8 -Total Square (Post) (cm) 0.01 -Area of Debridement (cm) - Length 0.1 -Area of Debridement (cm) - Width 0.1 -Total Square (Area) (cm) 0.01 -Tunneling No -Undermining/Tunneling No -Circular Undermining No -Wound/Ulcer Outcome Not Healed -Ulcer Cleansing Rinsed/ Irrigated with Saline -Foul Odor after Cleansing No -Bioengineered Tissue No -Bleeding Controlled with Pressure -Offloading No -Treatment Response Procedure Tolerated Well -Debridement - Subq, 1st 20sq cm No 10. R buttock fold -Time 12:00 -Correct Patient Yes -Correct Side, Site, Position Yes -Correct Procedure Yes -Procedure Performed Yes -Type of Procedure Debridement -Clinical Debridement Subcutaneous -Tissue Removed Subcutaneous -Post Debridement (cm) - Length 2.8 -Post Debridement (cm) - Width 2.2 -Post Debridement (cm) - Depth 0.1 -Total Square (Post) (cm) 6.16 -Area of Debridement (cm) - Length 2.8 -Area of Debridement (cm) - Width 2.1 -Total Square (Area) (cm) 5.88 -Tunneling No -Undermining/Tunneling No -Circular Undermining No -Wound/Ulcer Outcome Not Healed -Ulcer Cleansing Rinsed/ Irrigated with Saline -Foul Odor after Cleansing No -Bioengineered Tissue No -Bleeding Controlled with Pressure -Offloading No -Treatment Response Procedure Tolerated Well -Debridement - Subq, 1st 20sq cm Yes -Debridement, SubQ, ea addt'l 20sq cm 1 or part thereof 9. R sacral cluster -Time 12:00 -Correct Patient Yes -Correct Side, Site, Position Yes -Correct Procedure Yes -Procedure Performed Yes -Type of Procedure Debridement -Clinical Debridement Subcutaneous -Tissue Removed Subcutaneous -Post Debridement (cm) - Length 3.7 -Post Debridement (cm) - Width 4.0 -Post Debridement (cm) - Depth 0.1 -Total Square (Post) (cm) 14.80 -Area of Debridement (cm) - Length 3.7 -Area of Debridement (cm) - Width 4.0 -Total Square (Area) (cm) 14.80 -Tunneling No -Undermining/Tunneling No -Circular Undermining No -Wound/Ulcer Outcome Not Healed -Ulcer Cleansing Rinsed/ Irrigated with Saline -Foul Odor after Cleansing No -Bioengineered Tissue No -Bleeding Controlled with Pressure -Offloading No -Treatment Response Procedure Tolerated Well -Debridement - Subq, 1st 20sq cm No 8. L heel -Time 12:01 -Correct Patient Yes -Correct Side, Site, Position Yes -Correct Procedure Yes -Procedure Performed Yes -Type of Procedure Debridement -Clinical Debridement Subcutaneous -Tissue Removed Subcutaneous -Post Debridement (cm) - Length 3.2 -Post Debridement (cm) - Width 3.5 -Post Debridement (cm) - Depth 0.1 -Total Square (Post) (cm) 11.20 -Area of Debridement (cm) - Length 3.2 -Area of Debridement (cm) - Width 3.5 -Total Square (Area) (cm) 11.20 -Tunneling No -Undermining/Tunneling No -Circular Undermining No -Wound/Ulcer Outcome Not Healed -Ulcer Cleansing Rinsed/ Irrigated with Saline -Foul Odor after Cleansing No -Bioengineered Tissue No -Bleeding Controlled with Pressure -Offloading No -Debridement - Subq, 1st 20sq cm No 7. L lateral LE -Time 12:01 -Correct Patient Yes -Correct Side, Site, Position Yes -Correct Procedure Yes -Procedure Performed Yes -Type of Procedure Debridement -Clinical Debridement Subcutaneous -Tissue Removed Subcutaneous -Post Debridement (cm) - Length 2.3 -Post Debridement (cm) - Width 1.8 -Post Debridement (cm) - Depth 0.1 -Total Square (Post) (cm) 4.14 -Area of Debridement (cm) - Length 2.3 -Area of Debridement (cm) - Width 1.8 -Total Square (Area) (cm) 4.14 -Tunneling No -Undermining/Tunneling No -Circular Undermining No -Wound/Ulcer Outcome Not Healed -Ulcer Cleansing Rinsed/ Irrigated with Saline -Foul Odor after Cleansing No -Bioengineered Tissue No -Bleeding Controlled with Pressure -Offloading No -Treatment Response Procedure Tolerated Well -Debridement - Subq, 1st 20sq cm No [See Physician Procedure note for Specifics] Pain Scale: 0-10 Numeric [Pain] -Is Patient Pain Free? Yes - Nurse 3 - General Ulcer D/C NN Start: 03/16/20 11:21 Freq: Status: Active Protocol: Activity Type Activity Date Activity User E-Sign Co-Sign Detail Recorded Client Recorded Date Recorded By Document 03/16/20 12:27 [facility] [id number] 03/16/20 12:30 [facility] 03/16/20 12:27 Wound Care Nurse 3 [Wound Dressing] #11 right temi rectal -Ulcer Cleansing Rinsed/ Irrigated with Saline -Foul Odor after Cleansing No -Primary Dressing Applied Nugauze, Plain Iodoform,Other -Primary Dressing Covered/Secured Dry Gauze & with Roll Gauze, Secured with Tape -Nugauze, Plain Iodoform 1/ 1 10. R buttock fold -Ulcer Cleansing Rinsed/ Irrigated with Saline -Foul Odor after Cleansing No -Primary Dressing Applied Silvercel -Primary Dressing Covered/Secured Secured with with Tape,Other -Other Covering abd -Silvercel 1 9. R sacral cluster -Ulcer Cleansing Rinsed/ Irrigated with Saline -Foul Odor after Cleansing No -Primary Dressing Applied Promogran Kita Matter -Primary Dressing Covered/Secured Secured with with Tape,Other -Other Covering abd -Promogran Kita Matter 1 8. L heel -Ulcer Cleansing Rinsed/ Irrigated with Saline -Foul Odor after Cleansing No -Primary Dressing Applied Promogran [place]ita Matter -Primary Dressing Covered/Secured Dry Gauze & with Roll Gauze, Secured with Tape -Promogran Kita Matter 0 7. L lateral LE -Ulcer Cleansing Rinsed/ Irrigated with Saline -Foul Odor after Cleansing No -Primary Dressing Applied Promogran [place]ita Matter -Primary Dressing Covered/Secured Dry Gauze & with Roll Gauze, Secured with Tape -Promogran Kita Matter 0 [Post Procedure Tolerated] -Treatment Response Procedure Tolerated Well Pain Scale: 0-10 Numeric [Pain] -Is Patient Pain Free? Yes WC - Visit Discharge [Visit Discharge Information] -Discharge Condition Stable -Ambulatory Status Wheelchair -Transportation Private Auto Psych/Mental Status: Normal Affect, Appropriate Debridement Note Post-Debridement Measurements/Treatment WC - Nurse 2 - General Ulcer CM Notes Start: 03/16/20 11:21 Freq: Status: Active Protocol: Activity Type Activity Date Activity User E-Sign Co-Sign Detail Recorded Client Recorded Date Recorded By Document 03/16/20 11:55 MW [id number] 03/16/20 12:20 MW 03/16/20 11:55 Wound Center Nurse 2 #11 right temi rectal -Time 12:06 -Correct Patient Yes -Correct Side, Site, Position Yes -Correct Procedure Yes -Procedure Performed Yes -Type of Procedure Debridement -Clinical Debridement Subcutaneous -Tissue Removed Subcutaneous -Post Debridement (cm) - Length 0.1 -Post Debridement (cm) - Width 0.1 -Post Debridement (cm) - Depth 1.8 -Total Square (Post) (cm) 0.01 -Area of Debridement (cm) - Length 0.1 -Area of Debridement (cm) - Width 0.1 -Total Square (Area) (cm) 0.01 -Tunneling No -Undermining/Tunneling No -Circular Undermining No -Wound/Ulcer Outcome Not Healed -Ulcer Cleansing Rinsed/ Irrigated with Saline -Foul Odor after Cleansing No -Bioengineered Tissue No -Bleeding Controlled with Pressure -Offloading No -Treatment Response Procedure Tolerated Well -Debridement - Subq, 1st 20sq cm No 10. R buttock fold -Time 12:00 -Correct Patient Yes -Correct Side, Site, Position Yes -Correct Procedure Yes -Procedure Performed Yes -Type of Procedure Debridement -Clinical Debridement Subcutaneous -Tissue Removed Subcutaneous -Post Debridement (cm) - Length 2.8 -Post Debridement (cm) - Width 2.2 -Post Debridement (cm) - Depth 0.1 -Total Square (Post) (cm) 6.16 -Area of Debridement (cm) - Length 2.8 -Area of Debridement (cm) - Width 2.1 -Total Square (Area) (cm) 5.88 -Tunneling No -Undermining/Tunneling No -Circular Undermining No -Wound/Ulcer Outcome Not Healed -Ulcer Cleansing Rinsed/ Irrigated with Saline -Foul Odor after Cleansing No -Bioengineered Tissue No -Bleeding Controlled with Pressure -Offloading No -Treatment Response Procedure Tolerated Well -Debridement - Subq, 1st 20sq cm Yes -Debridement, SubQ, ea addt'l 20sq cm 1 or part thereof 9. R sacral cluster -Time 12:00 -Correct Patient Yes -Correct Side, Site, Position Yes -Correct Procedure Yes -Procedure Performed Yes -Type of Procedure Debridement -Clinical Debridement Subcutaneous -Tissue Removed Subcutaneous -Post Debridement (cm) - Length 3.7 -Post Debridement (cm) - Width 4.0 -Post Debridement (cm) - Depth 0.1 -Total Square (Post) (cm) 14.80 -Area of Debridement (cm) - Length 3.7 -Area of Debridement (cm) - Width 4.0 -Total Square (Area) (cm) 14.80 -Tunneling No -Undermining/Tunneling No -Circular Undermining No -Wound/Ulcer Outcome Not Healed -Ulcer Cleansing Rinsed/ Irrigated with Saline -Foul Odor after Cleansing No -Bioengineered Tissue No -Bleeding Controlled with Pressure -Offloading No -Treatment Response Procedure Tolerated Well -Debridement - Subq, 1st 20sq cm No 8. L heel -Time 12:01 -Correct Patient Yes -Correct Side, Site, Position Yes -Correct Procedure Yes -Procedure Performed Yes -Type of Procedure Debridement -Clinical Debridement Subcutaneous -Tissue Removed Subcutaneous -Post Debridement (cm) - Length 3.2 -Post Debridement (cm) - Width 3.5 -Post Debridement (cm) - Depth 0.1 -Total Square (Post) (cm) 11.20 -Area of Debridement (cm) - Length 3.2 -Area of Debridement (cm) - Width 3.5 -Total Square (Area) (cm) 11.20 -Tunneling No -Undermining/Tunneling No -Circular Undermining No -Wound/Ulcer Outcome Not Healed -Ulcer Cleansing Rinsed/ Irrigated with Saline -Foul Odor after Cleansing No -Bioengineered Tissue No -Bleeding Controlled with Pressure -Offloading No -Debridement - Subq, 1st 20sq cm No 7. L lateral LE -Time 12:01 -Correct Patient Yes -Correct Side, Site, Position Yes -Correct Procedure Yes -Procedure Performed Yes -Type of Procedure Debridement -Clinical Debridement Subcutaneous -Tissue Removed Subcutaneous -Post Debridement (cm) - Length 2.3 -Post Debridement (cm) - Width 1.8 -Post Debridement (cm) - Depth 0.1 -Total Square (Post) (cm) 4.14 -Area of Debridement (cm) - Length 2.3 -Area of Debridement (cm) - Width 1.8 -Total Square (Area) (cm) 4.14 -Tunneling No -Undermining/Tunneling No -Circular Undermining No -Wound/Ulcer Outcome Not Healed -Ulcer Cleansing Rinsed/ Irrigated with Saline -Foul Odor after Cleansing No -Bioengineered Tissue No -Bleeding Controlled with Pressure -Offloading No -Treatment Response Procedure Tolerated Well -Debridement - Subq, 1st 20sq cm No Pain Scale: 0-10 Numeric Is Patient Pain Free? Yes - Nurse 3 - General Ulcer D/C NN Start: 03/16/20 11:21 Freq: Status: Active Protocol: Activity Type Activity Date Activity User E-Sign Co-Sign Detail Recorded Client Recorded Date Recorded By Document 03/16/20 12:27 [facility] [id number] 03/16/20 12:30 [facility] 03/16/20 12:27 Wound Care Nurse 3 #11 right temi rectal -Ulcer Cleansing Rinsed/ Irrigated with Saline -Foul Odor after Cleansing No -Primary Dressing Applied Nugauze, Plain Iodoform,Other -Primary Dressing Covered/Secured with Dry Gauze & Roll Gauze, Secured with Tape -Nugauze, Plain Iodoform / 1 10. R buttock fold -Ulcer Cleansing Rinsed/ Irrigated with Saline -Foul Odor after Cleansing No -Primary Dressing Applied Silvercel -Primary Dressing Covered/Secured with Secured with Tape,Other -Other Covering abd -Silvercel 1 9. R sacral cluster -Ulcer Cleansing Rinsed/ Irrigated with Saline -Foul Odor after Cleansing No -Primary Dressing Applied Promogran Kita Matter -Primary Dressing Covered/Secured with Secured with Tape,Other -Other Covering abd -Promogran Kita Matter 1 8. L heel -Ulcer Cleansing Rinsed/ Irrigated with Saline -Foul Odor after Cleansing No -Primary Dressing Applied Promogran Kita Matter -Primary Dressing Covered/Secured with Dry Gauze & Roll Gauze, Secured with Tape -Promogran Kita Matter 0 7. L lateral LE -Ulcer Cleansing Rinsed/ Irrigated with Saline -Foul Odor after Cleansing No -Primary Dressing Applied Promogran Kita Matter -Primary Dressing Covered/Secured with Dry Gauze & Roll Gauze, Secured with Tape -Promogran Kita Matter 0 Treatment Response Procedure Tolerated Well Pain Scale: 0-10 Numeric Is Patient Pain Free? Yes WC - Visit Discharge Discharge Condition Stable Ambulatory Status Wheelchair Transportation Private Auto Wound debrided: right temi-rectal Laterality: Right Anesthesia Used: 4% Lidocaine Solution Depth: Down to and including healthy tissue, in the subcutaneous layer Percentage of wound debrided: 100 Instrument Used: - - probe Tissue Removed: yellow slough, devitalized tissue Severity: Fat Layer Exposed Amount of bleeding with debridement: Mild Bleeding Controlled with: Compression and gauze Patient tolerated procedure well - Additional Wound Wound debrided: Right buttock fold Laterality: Right Wound Grade/Stage: Stage 2 Type of Debridement: Excisional debridement Anesthesia Used: 4% Lidocaine Solution, 5% Lidocaine Gel Depth: Down to and including healthy tissue, in the subcutaneous layer Percentage of wound debrided: 100 Instrument Used: 5mm curette Tissue Removed: Yellow slough, devitalized tissue Severity: Fat Layer Exposed Amount of bleeding with debridement: Mild Bleeding Controlled with: Compression and gauze Patient tolerated procedure: Patient tolerated procedure well - Additional Wound Wound debrided: right sacral cluster Laterality: Right Wound Grade/Stage: Stage 2 Type of Debridement: Excisional debridement Anesthesia Used: 4% Lidocaine Solution Depth: Down to and including healthy tissue, in the subcutaneous layer Percentage of wound debrided: 100 Instrument Used: 5mm curette Tissue Removed: Yellow slough, devitalized tissue Severity: Fat Layer Exposed Amount of bleeding with debridement: Mild Bleeding Controlled with: Compression and gauze Patient tolerated procedure: Patient tolerated procedure well - Additional Wound Wound debrided: Left lateral lower extremity Laterality: Left Wound Grade/Stage: Stage 2 Type of Debridement: Excisional debridement Anesthesia Used: 4% Lidocaine Solution, 5% Lidocaine Gel Depth: Down to and including healthy tissue, in the subcutaneous layer Percentage of wound debrided: 100 Instrument Used: 5mm curette Tissue Removed: Yellow slough, devitalized tissue Severity: Fat Layer Exposed Amount of bleeding with debridement: Mild Bleeding Controlled with: Compression and gauze Patient tolerated procedure: Patient tolerated procedure well - Additional Wound Wound debrided: Left heel Laterality: Left Wound Grade/Stage: Stage 2 Type of Debridement: Excisional debridement Anesthesia Used: 4% Lidocaine Solution, 5% Lidocaine Gel Depth: Down to and including healthy tissue, in the subcutaneous layer Percentage of wound debrided: 100 Instrument Used: 5mm curette Tissue Removed: Yellow slough, devitalized tissue Severity: Fat Layer Exposed Amount of bleeding with debridement: Mild Bleeding Controlled with: Compression and gauze Patient tolerated procedure: Patient tolerated procedure well Assessment/Plan Active Problems (Last Reviewed 01/17/20 @ 13:19 by Marlena Antunez NP-C) Ulcer of sacral region, stage 2 (Chronic) Obesity (Chronic) Paraplegia (Chronic) Pressure injury of right buttock, stage 2 (Chronic) Diabetic ulcer of lower leg associated with type 2 diabetes mellitus, with fat layer exposed (Chronic) Diabetic foot ulcer associated with type 2 diabetes mellitus, with fat layer exposed (Chronic) Ulcer of left lower extremity with fat layer exposed (Chronic) Chronic ulcer of left heel (Chronic) Type 2 diabetes mellitus (Chronic) Assessment: Sacral pressure ulcer Stage 2. Right buttock fold pressure ulcer stage 2. right temi-rectal ulcer. Ulcer of left lateral leg. Ulcer of left heel. DM type 2. Wheelchair bound due to paraplegia. PVD Plan: Adiel's wounds were evaluated and debrided today. At home wound-care instructions: Continue daily dressing change with Promogran for moderate to heavy drainage and collagen to enhance healing. Will pack the temi-rectal ulcer with 1/4 iodoform gauze. Apply nurse's hat to heel. May shower. Wash temi- ulcer areas with Dial soap and water and rinse well. Compression: Double Tubigrip's daily for compression. Off-loading: Avoid pressure to left lateral leg, left lateral heel and right sacral and gluteal fold ulcers. Keep feet elevated as much as possible, at or above waist level. Avoid prolonged dangling of legs. Diet: Patient encouraged to increase protein and vitamin C intake while taking caution to avoid high carbohydrate and/or sugar intake. Labs/cultures/imaging: Recent labs and previous records reviewed. Vascular studies ordered--patient is to reschedule testing. Follow-up: Return in 1 week for follow up. Return sooner or report to the emergency room should symptoms worsen, or new symptoms arise. Note: [email or web address] speech recognition contractor field hauling software was used to create portions of this document. Sound-alike and misspelled words, as well as other contractor field hauling errors may be contained in the documentation.
== END 2020-03-19 23:59 ==
LOC: WC 11:09
PROVIDERS: Family Provider Internal Medicine; PCP Internal Medicine; Referring Provider Nurse Practitioner Family; Visit Provider Family Medicine
DX: E11.622 Type 2 diabetes mellitus with other skin ulcer (principal); L89.312 Pressure ulcer of right buttock, stage 2; E66.01 Morbid (severe) obesity due to excess calories; Z68.41 Body mass index [BMI] 40.0-44.9, adult; G82.20 Paraplegia, unspecified; L02.31 Cutaneous abscess of buttock; E11.621 Type 2 diabetes mellitus with foot ulcer; G47.33 Obstructive sleep apnea (adult) (pediatric); E11.51 Type 2 diabetes mellitus with diabetic peripheral angiopathy without gangrene; I10 Essential (primary) hypertension; F17.210 Nicotine dependence, cigarettes, uncomplicated; L89.152 Pressure ulcer of sacral region, stage 2; L97.422 Non-pressure chronic ulcer of left heel and midfoot with fat layer exposed; L97.522 Non-pressure chronic ulcer of other part of left foot with fat layer exposed; Z99.3 Dependence on wheelchair
CPT/HCPCS: 11042; 11045; 99213; G0463

== ENCOUNTER 2020-04-02 08:04 | Outpatient (RCR) | payer MEDICARE, SELFPAY ==
[2020-03-20 00:14] VITALS: BP 149/79; PULSE 102; RESP 18; TEMP 36.6
[2020-03-30 13:12] VITALS: BP 153/83; PULSE 113; RESP 18; TEMP 36.3; BMI 43.4
--- NOTE | 2020-03-30 15:25 | PN.PCM_ITS ---
(1) Obesity Status: Chronic Qualifiers: Obesity type: unspecified obesity type Body mass index: BMI 40.0-44.9 Code(s): E66.9 - Obesity, unspecified (2) Paraplegia Status: Chronic Code(s): G82.20 - Paraplegia, unspecified (3) Pressure injury of right buttock, stage 2 Status: Chronic Code(s): L89.312 - Pressure ulcer of right buttock, stage 2 (4) Pressure sore of left ischium, stage 3 Status: Chronic Code(s): L89.323 - Pressure ulcer of left buttock, stage 3 (5) Gluteal abscess Status: Chronic Code(s): L02.31 - Cutaneous abscess of buttock (6) Diabetic ulcer of lower leg associated with type 2 diabetes mellitus, with fat layer exposed Status: Chronic Code(s): E11.622 - Type 2 diabetes mellitus with other skin ul cer; L97.902 - Non-pressure chronic ulcer of unspecified part of unspecified lower leg with fat layer exposed (7) Diabetic ulcer of ankle associated with type 2 diabetes mellitus, with fat layer exposed Status: Chronic Code(s): E11.622 - Type 2 diabetes mellitus with other skin ulcer; L97.302 - Non-pressure chronic ulcer of unspecified ankle with fat layer exposed (8) Ulcer of left lower extremity with fat layer exposed Status: Chronic Code(s): L97.922 - Non-pressure chronic ulcer of unspecified part of left lower leg with fat layer exposed (9) Chronic ulcer of left heel Status: Chronic Qualifiers: Non-pressure ulcer stage: with fat layer exposed Code(s): L97.429 - Non-pressure chronic ulcer of left heel and midfoot with unspecified severity (10) Type 2 diabetes mellitus Status: Chronic Qualifiers: Diabetes 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 Diabetes mellitus complication status: with skin complications Diabetes mellitus complication detail: with foot ulcer Qualified Code(s): E11.621 - Type 2 diabetes mellitus with foot ulcer; L97.509 - Non-pressure chronic ulcer of other part of unspecified foot with unspecified severity Code(s): E11.9 - Type 2 diabetes mellitus without complications (11) Pressure ulcer of sacral region, stage 2 Status: Chronic Code(s): L89.152 - Pressure ulcer of sacral region, stage 2 Type of Wound Date of Service: 03/30/20 Chief Complaint: Ulcer on left posterior heel, left lateral leg and gluteal fold, temi-rectal ulcer and sacral ulcer History of Wound: Adiel is a 34 year old male who is wheelchair bound and paraplegic. [facility] areas he is presenting for evaluation today. He has had his current ulcers for over 2 months. He has been treating the areas with silvercell dressings and recently was placed on an antibiotic by his PCP. The left lower leg ulcers appear to be from pressure. He is unsure of how they developed. His ulcers on his sacrum and right buttock are from pressure and friction from transferring from his wheelchair to chair with his slide board. He also has an area that was from a temi-rectal abscess that is still open and draining. He reports that he is independent in his ADL's but does have a nurse that comes to care for him daily in the morning for a short time daily. He has a history of Type 2 DM, last A1C 7.0% on 12/20/2019. He has been seen at both our wound healing center and [facility] in [place] in the past for previous uclers. He has previously received Apligraf to his ulcers of his lower legs but the last application was probably 9 months ago. The patient denies any fever, chills, nausea, vomiting, or diarrhea. Denies any signs of infection, including increasing pain, redness, swelling, or drainage from affected area. Progress of Wound: Adiel presents today for follow up of multiple ulcers. He tolerated dressings and has improvement in the size of his ulcers. The patient denies any fever, chills, nausea, vomiting, or diarrhea. Denies any signs of infection, including increasing pain, redness, swelling, or foul- smelling/purulent drainage from affected areas. - Physical Exam Vital Signs Temp Pulse Resp BP 97.3 F L 113 H 18 153/83 H 03/30/20 13:12 03/30/20 13:12 03/30/20 13:12 03/30/20 13:12 General: Alert, Oriented x3, Cooperative, No apparent distress HEENT: Atraumatic, Normocephalic Oral: Moist Mucosa Abdomen: Obese Extremities: Edema Skin: Ulcer/ Wound Wound Measurements and Assessment WC - Nurse 1 - General Ulcer Measurement Start: 03/30/20 13:00 Freq: Status: Active Protocol: Activity Type Activity Date Activity User E-Sign Co-Sign Detail Recorded Client Recorded Date Recorded By Document 03/30/20 13:00 RB [id number] 03/30/20 13:12 CODY 03/30/20 13:00 Wound Center Nurse 1 [Ulcer Assessment] #11 right temi rectal -Combined with other wound No -Current Size (cm) - Length 0.1 -Current Size (cm) - Width 0.1 -Current Size (cm) - Depth 0.1 -Total Square Cm 0.01 -Tunneling No -Undermining/Tunneling No -Circular Undermining No -Exudate Amt Small -Exudate Type Serosanguineous -Wound Margin Flat & Intact -Granulation Amt Large (67-100%) -Granulation Quality [place] -Slough/Fibrin Yes -Necrosis Amt Small (1-33%) -Necrotic Tissue Type Adherent Slough -Structure Exposed N/A -Texture (Temi-wound Skin Appearance) Assessed, Excoriation -Moisture (Temi-wound Skin Appearance Assessed ) -Color (Temi-wound Skin Appearance) Not Assessed -Temperature (Temi-wound Skin No Abnormality Appearance) (Pt Warm) -Tenderness on Palpation (Temi-wound No Skin Appearance) -Ulcer Cleansing Wound Cleanser -Foul Odor after Cleansing No 10. R buttock fold -Combined with other wound No -Current Size (cm) - Length 4.8 -Current Size (cm) - Width 3 -Current Size (cm) - Depth 0.5 -Total Square Cm 14.4 -Tunneling No -Undermining/Tunneling No -Circular Undermining No -Exudate Amt Small -Exudate Type Serosanguineous -Wound Margin Thickened & Rolled Under -Granulation Amt Medium (34-66%) -Granulation Quality [place] -Slough/Fibrin Yes -Necrosis Amt Small (1-33%) -Necrotic Tissue Type Adherent Slough -Structure Exposed N/A -Texture (Temi-wound Skin Appearance) Assessed -Moisture (Temi-wound Skin Appearance Assessed ) -Color (Temi-wound Skin Appearance) Assessed -Temperature (Temi-wound Skin No Abnormality Appearance) (Pt Warm) -Tenderness on Palpation (Temi-wound No Skin Appearance) -Ulcer Cleansing Wound Cleanser -Foul Odor after Cleansing No 9. R sacral cluster -Combined with other wound No -Current Size (cm) - Length 4.1 -Current Size (cm) - Width 1.7 -Total Square Cm 6.97 -Tunneling No -Undermining/Tunneling No -Circular Undermining No -Exudate Amt Small -Exudate Type Serosanguineous -Wound Margin Thickened & Rolled Under -Granulation Amt Large (67-100%) -Granulation Quality [place] -Slough/Fibrin Yes -Necrosis Amt Small (1-33%) -Necrotic Tissue Type Adherent Slough -Structure Exposed N/A -Texture (Temi-wound Skin Appearance) Assessed, Scarring -Moisture (Temi-wound Skin Appearance Assessed ) -Color (Temi-wound Skin Appearance) Assessed -Temperature (Temi-wound Skin No Abnormality Appearance) (Pt Warm) -Tenderness on Palpation (Temi-wound No Skin Appearance) -Ulcer Cleansing Wound Cleanser -Foul Odor after Cleansing No 8. L heel -Combined with other wound No -Current Size (cm) - Length 2.7 -Current Size (cm) - Width 1.7 -Current Size (cm) - Depth 0.1 -Total Square Cm 4.59 -Tunneling No -Undermining/Tunneling No -Circular Undermining No -Exudate Amt Small -Exudate Type Serosanguineous -Wound Margin Thickened -Granulation Amt Medium (34-66%) -Granulation Quality [place] -Slough/Fibrin Yes -Necrosis Amt Small (1-33%) -Necrotic Tissue Type Adherent Slough -Structure Exposed N/A -Texture (Temi-wound Skin Appearance) Assessed,Callus -Moisture (Temi-wound Skin Appearance Assessed ) -Color (Temi-wound Skin Appearance) Assessed -Temperature (Temi-wound Skin No Abnormality Appearance) (Pt Warm) -Tenderness on Palpation (Temi-wound No Skin Appearance) -Ulcer Cleansing Wound Cleanser -Foul Odor after Cleansing No 7. L lateral LE -Combined with other wound No -Current Size (cm) - Length 1.8 -Current Size (cm) - Width 0.9 -Current Size (cm) - Depth 0.3 -Total Square Cm 1.62 -Tunneling No -Undermining/Tunneling No -Circular Undermining No -Exudate Amt Small -Exudate Type Serosanguineous -Wound Margin Thickened & Rolled Under -Granulation Amt Medium (34-66%) -Granulation Quality [place] -Slough/Fibrin Yes -Necrosis Amt Small (1-33%) -Necrotic Tissue Type Adherent Slough -Structure Exposed N/A -Texture (Temi-wound Skin Appearance) Assessed, Scarring -Moisture (Temi-wound Skin Appearance Assessed ) -Color (Temi-wound Skin Appearance) Assessed -Temperature (Temi-wound Skin No Abnormality Appearance) (Pt Warm) -Tenderness on Palpation (Temi-wound No Skin Appearance) -Ulcer Cleansing Wound Cleanser -Foul Odor after Cleansing No WC - Nurse 2 - General Ulcer CM Notes Start: 03/30/20 13:00 Freq: Status: Active Protocol: Activity Type Activity Date Activity User E-Sign Co-Sign Detail Recorded Client Recorded Date Recorded By Document 03/30/20 13:33 MW [id number] 03/30/20 13:52 MW 03/30/20 13:33 Wound Center Nurse 2 [Procedure/Treatment] #11 right temi rectal -Time 13:48 -Correct Patient Yes -Correct Side, Site, Position Yes -Correct Procedure Yes -Procedure Performed No -Post Debridement (cm) - Length 0 -Post Debridement (cm) - Width 0 -Post Debridement (cm) - Depth 0 -Total Square (Post) (cm) 0 -Wound/Ulcer Outcome Healed- Epithelialized 10. R buttock fold -Time 13:50 -Correct Patient Yes -Correct Side, Site, Position Yes -Correct Procedure Yes -Procedure Performed Yes -Type of Procedure Debridement -Clinical Debridement Subcutaneous -Tissue Removed Subcutaneous -Post Debridement (cm) - Length 2.0 -Post Debridement (cm) - Width 2.2 -Post Debridement (cm) - Depth 0.1 -Total Square (Post) (cm) 4.40 -Area of Debridement (cm) - Length 2.0 -Area of Debridement (cm) - Width 2.2 -Total Square (Area) (cm) 4.40 -Tunneling No -Undermining/Tunneling No -Circular Undermining No -Wound/Ulcer Outcome Not Healed -Ulcer Cleansing Rinsed/ Irrigated with Saline -Foul Odor after Cleansing No -Bioengineered Tissue No -Bleeding Controlled with Pressure -Offloading No -Treatment Response Procedure Tolerated Well -Debridement - Subq, 1st 20sq cm Yes 9. R sacral cluster -Time 13:45 -Correct Patient Yes -Correct Side, Site, Position Yes -Correct Procedure Yes -Procedure Performed Yes -Type of Procedure Debridement -Clinical Debridement Subcutaneous -Tissue Removed Subcutaneous -Post Debridement (cm) - Length 3.2 -Post Debridement (cm) - Width 1.7 -Post Debridement (cm) - Depth 0.1 -Total Square (Post) (cm) 5.44 -Area of Debridement (cm) - Length 3.2 -Area of Debridement (cm) - Width 1.7 -Total Square (Area) (cm) 5.44 -Tunneling No -Undermining/Tunneling No -Circular Undermining No -Wound/Ulcer Outcome Not Healed -Ulcer Cleansing Rinsed/ Irrigated with Saline -Foul Odor after Cleansing No -Bioengineered Tissue No -Bleeding Controlled with Pressure -Offloading No -Treatment Response Procedure Tolerated Well -Debridement - Subq, 1st 20sq cm No 8. L heel -Time 13:37 -Correct Patient Yes -Correct Side, Site, Position Yes -Correct Procedure Yes -Procedure Performed Yes -Type of Procedure Debridement -Clinical Debridement Subcutaneous -Tissue Removed Subcutaneous -Post Debridement (cm) - Length 2.6 -Post Debridement (cm) - Width 1.7 -Post Debridement (cm) - Depth 0.1 -Total Square (Post) (cm) 4.42 -Area of Debridement (cm) - Length 2.6 -Area of Debridement (cm) - Width 1.7 -Total Square (Area) (cm) 4.42 -Tunneling No -Undermining/Tunneling No -Circular Undermining No -Wound/Ulcer Outcome Not Healed -Ulcer Cleansing Rinsed/ Irrigated with Saline -Foul Odor after Cleansing No -Bioengineered Tissue No -Bleeding Controlled with Pressure -Offloading No -Debridement - Subq, 1st 20sq cm Yes 7. L lateral LE -Time 13:43 -Correct Patient Yes -Correct Side, Site, Position Yes -Correct Procedure Yes -Procedure Performed Yes -Type of Procedure Debridement -Clinical Debridement Subcutaneous -Tissue Removed Subcutaneous -Post Debridement (cm) - Length 2.1 -Post Debridement (cm) - Width 1.5 -Post Debridement (cm) - Depth 0.2 -Total Square (Post) (cm) 3.15 -Area of Debridement (cm) - Length 2.1 -Area of Debridement (cm) - Width 1.5 -Total Square (Area) (cm) 3.15 -Tunneling No -Undermining/Tunneling No -Circular Undermining No -Wound/Ulcer Outcome Not Healed -Ulcer Cleansing Rinsed/ Irrigated with Saline -Foul Odor after Cleansing No -Bioengineered Tissue No -Bleeding Controlled with Pressure -Offloading No -Treatment Response Procedure Tolerated Well -Debridement - Subq, 1st 20sq cm No [See Physician Procedure note for Specifics] WC - Nurse 3 - General Ulcer D/C NN Start: 03/30/20 13:00 Freq: Status: Active Protocol: Activity Type Activity Date Activity User E-Sign Co-Sign Detail Recorded Client Recorded Date Recorded By Document 03/30/20 13:56 RB [id number] 03/30/20 13:59 RB 03/30/20 13:56 Wound Care Nurse 3 [Wound Dressing] 10. R buttock fold -Ulcer Cleansing Rinsed/ Irrigated with Saline -Primary Dressing Applied NonAdherent Contact Layer, Promogran [place]ita Matter -Primary Dressing Covered/Secured Secured with with Tape -Other Covering abd -Promogran Anita Matter 1 9. R sacral cluster -Ulcer Cleansing Rinsed/ Irrigated with Saline -Primary Dressing Applied NonAdherent Contact Layer, Promogran Anita Matter -Primary Dressing Covered/Secured Secured with with Tape -Promogran Anita Matter 1 8. L heel -Primary Dressing Applied NonAdherent Contact Layer -Other Dressing anita -Primary Dressing Covered/Secured Dry Gauze & with Roll Gauze, Secured with Tape -Other Covering abd 7. L lateral LE -Ulcer Cleansing Rinsed/ Irrigated with Saline -Primary Dressing Applied NonAdherent Contact Layer -Other Dressing anita -Primary Dressing Covered/Secured Secured with with Tape [Post Procedure Tolerated] -Treatment Response Procedure Tolerated Well Pain Scale: 0-10 Numeric [Pain] -Is Patient Pain Free? Yes - Visit Discharge [Visit Discharge Information] -Discharge Condition Stable -Ambulatory Status Ambulatory -Transportation Private Auto -Medication Reconcilliation completed No & provided to patient/care provider -Clinical Summary of Care Provided Yes Psych/Mental Status: Normal Affect, Appropriate Debridement Note Post-Debridement Measurements/Treatment - Nurse 2 - General Ulcer CM Notes Start: 03/30/20 13:00 Freq: Status: Active Protocol: Activity Type Activity Date Activity User E-Sign Co-Sign Detail Recorded Client Recorded Date Recorded By Document 03/30/20 13:33 MW [id number] 03/30/20 13:52 MW 03/30/20 13:33 Wound Center Nurse 2 #11 right temi rectal -Time 13:48 -Correct Patient Yes -Correct Side, Site, Position Yes -Correct Procedure Yes -Procedure Performed No -Post Debridement (cm) - Length 0 -Post Debridement (cm) - Width 0 -Post Debridement (cm) - Depth 0 -Total Square (Post) (cm) 0 -Wound/Ulcer Outcome Healed- Epithelialized 10. R buttock fold -Time 13:50 -Correct Patient Yes -Correct Side, Site, Position Yes -Correct Procedure Yes -Procedure Performed Yes -Type of Procedure Debridement -Clinical Debridement Subcutaneous -Tissue Removed Subcutaneous -Post Debridement (cm) - Length 2.0 -Post Debridement (cm) - Width 2.2 -Post Debridement (cm) - Depth 0.1 -Total Square (Post) (cm) 4.40 -Area of Debridement (cm) - Length 2.0 -Area of Debridement (cm) - Width 2.2 -Total Square (Area) (cm) 4.40 -Tunneling No -Undermining/Tunneling No -Circular Undermining No -Wound/Ulcer Outcome Not Healed -Ulcer Cleansing Rinsed/ Irrigated with Saline -Foul Odor after Cleansing No -Bioengineered Tissue No -Bleeding Controlled with Pressure -Offloading No -Treatment Response Procedure Tolerated Well -Debridement - Subq, 1st 20sq cm Yes 9. R sacral cluster -Time 13:45 -Correct Patient Yes -Correct Side, Site, Position Yes -Correct Procedure Yes -Procedure Performed Yes -Type of Procedure Debridement -Clinical Debridement Subcutaneous -Tissue Removed Subcutaneous -Post Debridement (cm) - Length 3.2 -Post Debridement (cm) - Width 1.7 -Post Debridement (cm) - Depth 0.1 -Total Square (Post) (cm) 5.44 -Area of Debridement (cm) - Length 3.2 -Area of Debridement (cm) - Width 1.7 -Total Square (Area) (cm) 5.44 -Tunneling No -Undermining/Tunneling No -Circular Undermining No -Wound/Ulcer Outcome Not Healed -Ulcer Cleansing Rinsed/ Irrigated with Saline -Foul Odor after Cleansing No -Bioengineered Tissue No -Bleeding Controlled with Pressure -Offloading No -Treatment Response Procedure Tolerated Well -Debridement - Subq, 1st 20sq cm No 8. L heel -Time 13:37 -Correct Patient Yes -Correct Side, Site, Position Yes -Correct Procedure Yes -Procedure Performed Yes -Type of Procedure Debridement -Clinical Debridement Subcutaneous -Tissue Removed Subcutaneous -Post Debridement (cm) - Length 2.6 -Post Debridement (cm) - Width 1.7 -Post Debridement (cm) - Depth 0.1 -Total Square (Post) (cm) 4.42 -Area of Debridement (cm) - Length 2.6 -Area of Debridement (cm) - Width 1.7 -Total Square (Area) (cm) 4.42 -Tunneling No -Undermining/Tunneling No -Circular Undermining No -Wound/Ulcer Outcome Not Healed -Ulcer Cleansing Rinsed/ Irrigated with Saline -Foul Odor after Cleansing No -Bioengineered Tissue No -Bleeding Controlled with Pressure -Offloading No -Debridement - Subq, 1st 20sq cm Yes 7. L lateral LE -Time 13:43 -Correct Patient Yes -Correct Side, Site, Position Yes -Correct Procedure Yes -Procedure Performed Yes -Type of Procedure Debridement -Clinical Debridement Subcutaneous -Tissue Removed Subcutaneous -Post Debridement (cm) - Length 2.1 -Post Debridement (cm) - Width 1.5 -Post Debridement (cm) - Depth 0.2 -Total Square (Post) (cm) 3.15 -Area of Debridement (cm) - Length 2.1 -Area of Debridement (cm) - Width 1.5 -Total Square (Area) (cm) 3.15 -Tunneling No -Undermining/Tunneling No -Circular Undermining No -Wound/Ulcer Outcome Not Healed -Ulcer Cleansing Rinsed/ Irrigated with Saline -Foul Odor after Cleansing No -Bioengineered Tissue No -Bleeding Controlled with Pressure -Offloading No -Treatment Response Procedure Tolerated Well -Debridement - Subq, 20sq cm No WC - Nurse 3 - General Ulcer D/C NN Start: 03/30/20 13:00 Freq: Status: Active Protocol: Activity Type Activity Date Activity User E-Sign Co-Sign Detail Recorded Client Recorded Date Recorded By Document 03/30/20 13:56 RB [id number] 03/30/20 13:59 RB 03/30/20 13:56 Wound Care Nurse 3 10. R buttock fold -Ulcer Cleansing Rinsed/ Irrigated with Saline -Primary Dressing Applied NonAdherent Contact Layer, Promogran Anita Matter -Primary Dressing Covered/Secured with Secured with Tape -Other Covering abd -Promogran Anita Matter 1 9. R sacral cluster -Ulcer Cleansing Rinsed/ Irrigated with Saline -Primary Dressing Applied NonAdherent Contact Layer, Promogran Anita Matter -Primary Dressing Covered/Secured with Secured with Tape -Promogran Anita Matter 1 8. L heel -Primary Dressing Applied NonAdherent Contact Layer -Other Dressing anita -Primary Dressing Covered/Secured with Dry Gauze & Roll Gauze, Secured with Tape -Other Covering abd 7. L lateral LE -Ulcer Cleansing Rinsed/ Irrigated with Saline -Primary Dressing Applied NonAdherent Contact Layer -Other Dressing anita -Primary Dressing Covered/Secured with Secured with Tape Treatment Response Procedure Tolerated Well Pain Scale: 0-10 Numeric Is Patient Pain Free? Yes WC - Visit Discharge Discharge Condition Stable Ambulatory Status Ambulatory Transportation Private Auto Medication Reconcilliation completed & No provided to patient/care provider Clinical Summary of Care Provided Yes Wound debrided: right perirectal Laterality: Right No debridement was completed today - it is healed - Additional Wound Wound debrided: Right buttock fold Laterality: Right Wound Grade/Stage: Stage 3 Type of Debridement: Excisional debridement Anesthesia Used: 4% Lidocaine Solution, 5% Lidocaine Gel Depth: Down to and including healthy tissue, in the subcutaneous layer Percentage of wound debrided: 100 Instrument Used: 5mm curette Tissue Removed: Yellow slough, devitalized tissue Severity: Fat Layer Exposed Amount of bleeding with debridement: Mild Bleeding Controlled with: Compression and gauze Patient tolerated procedure: Patient tolerated procedure well - Additional Wound Wound debrided: right sacral cluster Laterality: Right Wound Grade/Stage: Stage 2 Type of Debridement: Excisional debridement Anesthesia Used: 4% Lidocaine Solution, 5% Lidocaine Gel Depth: Down to and including healthy tissue, in the subcutaneous layer Percentage of wound debrided: 100 Instrument Used: 5mm curette Tissue Removed: Yellow slough, devitalized tissue Severity: Fat Layer Exposed Amount of bleeding with debridement: Mild Bleeding Controlled with: Compression and gauze Patient tolerated procedure: Patient tolerated procedure well - Additional Wound Wound debrided: left heel Laterality: Left Wound Grade/Stage: Grade 1 Type of Debridement: Excisional debridement Anesthesia Used: 4% Lidocaine Solution, 5% Lidocaine Gel Depth: Down to and including healthy tissue, in the subcutaneous layer Percentage of wound debrided: 100 Instrument Used: 5mm curette Tissue Removed: Yellow slough, devitalized tissue Severity: Fat Layer Exposed Amount of bleeding with debridement: Mild Bleeding Controlled with: Compression and gauze Patient tolerated procedure: Patient tolerated procedure well - Additional Wound Wound debrided: Left lateral lower extremity Laterality: Left Wound Grade/Stage: Grade 1 Type of Debridement: Excisional debridement Anesthesia Used: 4% Lidocaine Solution, 5% Lidocaine Gel Depth: Down to and including healthy tissue, in the subcutaneous layer Percentage of wound debrided: 100 Instrument Used: 5mm curette Tissue Removed: Yellow slough, devitalized tissue Severity: Fat Layer Exposed Amount of bleeding with debridement: Mild Bleeding Controlled with: Compression and gauze Patient tolerated procedure: Patient tolerated procedure well Assessment/Plan Assessment: Sacral pressure ulcer Stage 2. Right buttock fold pressure ulcer stage 2. right temi-rectal ulcer. Ulcer of left lateral leg. Ulcer of left heel. DM type 2. Wheelchair bound due to paraplegia. PVD Plan: Wendy wounds were evaluated and debrided today. At home wound-care instructions: Continue daily dressing change with Promogran for moderate to heavy drainage and collagen to enhance healing and cover with adaptic. Apply nurse's hat to heel. May shower. Wash temi-ulcer areas with Dial soap and water and rinse well. Compression: Double Tubigrip's daily for compression. Off- loading: Avoid pressure to left lateral leg, left lateral heel and right sacral and gluteal fold ulcers. Keep feet elevated as much as possible, at or above waist level. Avoid prolonged dangling of legs. Diet: Patient encouraged to increase protein and vitamin C intake while taking caution to avoid high carbohydrate and/or sugar intake. Labs/cultures/imaging: Recent labs and previous records reviewed. Follow-up: Return in 2 weeks for follow up. Return sooner or report to the emergency room should symptoms worsen, or new symptoms arise. Note: [employer] speech recognition bariatric nurse software was used to create portions of this document. Sound-alike and misspelled words, as well as other bariatric nurse errors may be contained in the documentation.
== END 2020-04-18 23:59 ==
LOC: WC 08:04
PROVIDERS: Family Provider Internal Medicine; PCP Internal Medicine; Referring Provider Nurse Practitioner Family; Visit Provider Family Medicine
DX: E11.622 Type 2 diabetes mellitus with other skin ulcer (principal); E66.9 Obesity, unspecified; Z68.41 Body mass index [BMI] 40.0-44.9, adult; G82.20 Paraplegia, unspecified; L89.152 Pressure ulcer of sacral region, stage 2; Z99.3 Dependence on wheelchair; K61.1 Rectal abscess; L89.313 Pressure ulcer of right buttock, stage 3; E11.621 Type 2 diabetes mellitus with foot ulcer; L97.422 Non-pressure chronic ulcer of left heel and midfoot with fat layer exposed; L97.822 Non-pressure chronic ulcer of other part of left lower leg with fat layer exposed; L89.312 Pressure ulcer of right buttock, stage 2
CPT/HCPCS: 11042

== ENCOUNTER → 2020-04-17 | Outpatient (CLI) | payer MEDICARE, SELFPAY ==
[2020-04-17 14:05] VITALS: BMI 43.4
== END | disposition home or self-care (01) ==
LOC: LABSPEC 18:16
PROVIDERS: PCP Internal Medicine; Visit Provider Physician Assistant Surgical
DX: N39.44 Nocturnal enuresis (principal)
CPT/HCPCS: 87086; 87088

== ENCOUNTER 2020-04-20 08:08 | Outpatient (RCR) | payer MEDICARE, SELFPAY ==
[2020-04-17 14:05] VITALS: BMI 43.4
[2020-04-19 00:20] VITALS: BP 153/83; PULSE 113; RESP 18; TEMP 36.3
[2020-04-20 11:42] VITALS: BP 186/94; PULSE 115; RESP 18; TEMP 36.1; BMI 43.4
[2020-04-20 12:37] VITALS: BP 154/96; PULSE 119; TEMP 36.1
--- NOTE | 2020-04-20 15:16 | PCM.WC.PN ---
(1) Pressure ulcer of sacral region, stage 2 Status: Chronic Current Visit: Yes Code(s): L89.152 - Pressure ulcer of sacral region, stage 2 (2) Obesity Status: Chronic Current Visit: Yes Qualifiers: Obesity type: unspecified obesity type Obesity classification: adult class 3 (BMI >= 40) Serious obesity comorbidity presence: with serious comorbidity Body mass index: BMI 40.0-44.9 Qualified Code(s): E66.01 - Morbid (severe) obesity due to excess calories; Z68.41 - Body mass index [BMI]40.0-44.9, adult Code(s): E66.9 - Obesity, unspecified (3) Paraplegia Status: Chronic Current Visit: Yes Code(s): G82.20 - Paraplegia, unspecified (4) Pressure injury of right buttock, stage 2 Status: Chronic Current Visit: Yes Code(s): L89.312 - Pressure ulcer of right buttock, stage 2 (5) Pressure sore of left ischium, stage 3 Status: Chronic Current Visit: Yes Code(s): L89.323 - Pressure ulcer of left buttock, stage 3 (6) Diabetic ulcer of lower leg associated with type 2 diabetes mellitus, with fat layer exposed Status: Chronic Current Visit: Yes Code(s): E11.622 - Type 2 diabetes mellitus with other skin ulcer; L97.902 - Non-pressure chronic ulcer of unspecified part of unspecified lower leg with fat layer exposed Comment: left heel (7) Diabetic foot ulcer associated with type 2 diabetes mellitus, with fat layer exposed Status: Chronic Current Visit: Yes Qualifiers: Diabetic foot ulcer location: heel Laterality: left Qualified Code(s): E11.621 - Type 2 diabetes mellitus with foot ulcer; L97.422 - Non-pressure chronic ulcer of left heel and midfoot with fat layer exposed Code(s): E11.621 - Type 2 diabetes mellitus with foot ulcer; L97.502 - Non-pressure chronic ulcer of other part of unspecified foot with fat layer exposed (8) Ulcer of left lower extremity with fat layer exposed Status: Chronic Current Visit: Yes Code(s): L97.922 - Non-pressure chronic ulcer of unspecified part of left lower leg with fat layer exposed (9) Chronic ulcer of left heel Status: Chronic Current Visit: Yes Qualifiers: Non-pressure ulcer stage: with fat layer exposed Code(s): L97.429 - Non-pressure chronic ulcer of left heel and midfoot with unspecified severity (10) Type 2 diabetes mellitus Status: Chronic Current Visit: Yes Qualifiers: Diabetes mellitus mcfp insulin use: unspecified mcfp insulin use status Diabetes mellitus complication status: with skin complications Diabetes mellitus complication detail: with foot ulcer Qualified Code(s): E11.621 - Type 2 diabetes mellitus with foot ulcer; L97.509 - Non-pressure chronic ulcer of other part of unspecified foot with unspecified severity Code(s): E11.9 - Type 2 diabetes mellitus without complications Type of Wound Date of Service: 04/20/20 Chief Complaint: Ulcer on left posterior heel, left lateral leg and right and left gluteal fold, temi-rectal ulcer and sacral ulcer History of Wound: Adiel is a 34 year old male who is wheelchair bound and paraplegic. [facility] areas he is presenting for evaluation today. He has had his current ulcers for over 2 months. He has been treating the areas with silvercell dressings and recently was placed on an antibiotic by his PCP. The left lower leg ulcers appear to be from pressure. He is unsure of how they developed. His ulcers on his sacrum and right buttock are from pressure and friction from transferring from his wheelchair to chair with his slide board. He also has an area that was from a temi-rectal abscess that is still open and draining. He reports that he is independent in his ADL's but does have a nurse that comes to care for him daily in the morning for a short time daily. He has a history of Type 2 DM, last A1C 7.0% on 12/20/2019. He has been seen at both our wound healing center and [facility] in [place] in the past for previous uclers. He has previously received Apligraf to his ulcers of his lower legs but the last application was probably 9 months ago. The patient denies any fever, chills, nausea, vomiting, or diarrhea. Denies any signs of infection, including increasing pain, redness, swelling, or drainage from affected area. Progress of Wound: Adiel presents today for follow up of multiple ulcers. He tolerated dressings and has improvement in the size of his ulcers. He has had bleeding from the perirectal ulcer that was previously healed. He also has a new ulcer to his left gluteal fold. The patient denies any fever, chills, nausea, vomiting, or diarrhea. Denies any signs of infection, including increasing pain, redness, swelling, or foul-smelling/purulent drainage from affected areas. - Physical Exam Vital Signs Temp Pulse Resp BP 97 F L 119 H 18 154/96 H 04/20/20 12:37 04/20/20 12:37 04/20/20 11:42 04/20/20 12:37 General: Alert, Oriented x3, Cooperative, No apparent distress HEENT: Atraumatic, Normocephalic Oral: Moist Mucosa Abdomen: Obese Extremities: Edema Skin: Ulcer/ Wound Wound Measurements and Assessment WC - Nurse 1 - General Ulcer Measurement Start: 04/20/20 11:42 Freq: Status: Active Protocol: Activity Type Activity Date Activity User E-Sign Co-Sign Detail Recorded Client Recorded Date Recorded By Document 04/20/20 11:42 RB [id number] 04/20/20 11:53 RB 04/20/20 11:42 Wound Center Nurse 1 [Ulcer Assessment] 10. R buttock fold -Combined with other wound No -Current Size (cm) - Length 3.2 -Current Size (cm) - Width 4.2 -Current Size (cm) - Depth 0.5 -Total Square Cm 13.44 -Tunneling No -Undermining/Tunneling No -Circular Undermining No -Exudate Amt Small -Exudate Type Serosanguineous -Wound Margin Flat & Intact -Granulation Amt Medium (34-66%) -Granulation Quality [place] -Slough/Fibrin Yes -Necrosis Amt None Present (0 %) -Necrotic Tissue Type Adherent Slough -Structure Exposed N/A -Texture (Temi-wound Skin Appearance) Assessed, Excoriation -Moisture (Temi-wound Skin Appearance Assessed ) -Color (Temi-wound Skin Appearance) Assessed -Temperature (Temi-wound Skin No Abnormality Appearance) (Pt Warm) -Tenderness on Palpation (Temi-wound No Skin Appearance) -Ulcer Cleansing Wound Cleanser -Foul Odor after Cleansing No 9. R sacral cluster -Combined with other wound No -Current Size (cm) - Length 0 -Current Size (cm) - Width 0 -Current Size (cm) - Depth 0 -Total Square Cm 0 -Epithelialization Large 67-100% 8. L heel -Combined with other wound No -Current Size (cm) - Length 2.4 -Current Size (cm) - Width 1.4 -Current Size (cm) - Depth 0.1 -Total Square Cm 3.36 -Tunneling No -Undermining/Tunneling No -Circular Undermining No -Exudate Amt Small -Exudate Type Serosanguineous -Wound Margin Flat & Intact -Granulation Amt Medium (34-66%) -Granulation Quality [place] -Slough/Fibrin Yes -Necrosis Amt Medium (34-66%) -Necrotic Tissue Type Adherent Slough -Structure Exposed N/A -Texture (Temi-wound Skin Appearance) Callus -Moisture (Temi-wound Skin Appearance Assessed ) -Color (Temi-wound Skin Appearance) Assessed -Temperature (Temi-wound Skin No Abnormality Appearance) (Pt Warm) -Tenderness on Palpation (Temi-wound No Skin Appearance) -Ulcer Cleansing Wound Cleanser -Foul Odor after Cleansing No 7. L lateral LE -Combined with other wound No -Current Size (cm) - Length 2.1 -Current Size (cm) - Width 0.8 -Current Size (cm) - Depth 0.3 -Total Square Cm 1.68 -Tunneling No -Undermining/Tunneling No -Circular Undermining No -Exudate Amt Small -Exudate Type Serosanguineous -Wound Margin Thickened & Rolled Under -Granulation Amt Medium (34-66%) -Granulation Quality [place] -Slough/Fibrin Yes -Necrosis Amt Small (1-33%) -Necrotic Tissue Type Adherent Slough -Structure Exposed N/A -Texture (Temi-wound Skin Appearance) Assessed -Moisture (Temi-wound Skin Appearance Assessed ) -Color (Temi-wound Skin Appearance) Assessed -Temperature (Temi-wound Skin No Abnormality Appearance) (Pt Warm) -Tenderness on Palpation (Temi-wound No Skin Appearance) -Ulcer Cleansing Wound Cleanser -Foul Odor after Cleansing No [Edema Assessment] -Lower Limb Edema Present Yes -Left Calf (cm) 37.1 -Left Ankle (cm) 25 WC - Nurse 2 - General Ulcer CM Notes Start: 04/20/20 11:42 Freq: Status: Active Protocol: Activity Type Activity Date Activity User E-Sign Co-Sign Detail Recorded Client Recorded Date Recorded By Document 04/20/20 12:05 MW [id number] 04/20/20 12:30 MW 04/20/20 12:05 Wound Center Nurse 2 [Procedure/Treatment] #12 left buttock fold -Time 12:29 -Correct Patient Yes -Correct Side, Site, Position Yes -Correct Procedure Yes -Procedure Performed Yes -Type of Procedure Debridement -Clinical Debridement Subcutaneous -Tissue Removed Subcutaneous -Post Debridement (cm) - Length 0.3 -Post Debridement (cm) - Width 1.8 -Post Debridement (cm) - Depth 0.1 -Total Square (Post) (cm) 0.54 -Area of Debridement (cm) - Length 0.3 -Area of Debridement (cm) - Width 1.8 -Total Square (Area) (cm) 0.54 -Tunneling No -Undermining/Tunneling No -Circular Undermining No -Wound/Ulcer Outcome Not Healed -Ulcer Cleansing Rinsed/ Irrigated with Saline -Foul Odor after Cleansing No -Bioengineered Tissue No -Bleeding Controlled with Pressure -Offloading No -Debridement - Subq, 1st 20sq cm No #11 right temi rectal -Time 12:23 -Correct Patient Yes -Correct Side, Site, Position Yes -Correct Procedure Yes -Procedure Performed Yes -Type of Procedure Debridement -Clinical Debridement Subcutaneous -Tissue Removed Subcutaneous -Post Debridement (cm) - Length 0.1 -Post Debridement (cm) - Width 0.1 -Post Debridement (cm) - Depth 0.3 -Total Square (Post) (cm) 0.01 -Area of Debridement (cm) - Length 0.1 -Area of Debridement (cm) - Width 0.1 -Total Square (Area) (cm) 0.01 -Tunneling No -Undermining/Tunneling No -Circular Undermining No -Wound/Ulcer Outcome Not Healed -Ulcer Cleansing Rinsed/ Irrigated with Saline -Foul Odor after Cleansing No -Bioengineered Tissue No -Bleeding Controlled with Pressure -Offloading No -Treatment Response Procedure Tolerated Well -Debridement - Subq, 1st 20sq cm Yes 10. R buttock fold -Time 12:08 -Correct Patient Yes -Correct Side, Site, Position Yes -Correct Procedure Yes -Procedure Performed Yes -Type of Procedure Debridement -Clinical Debridement Subcutaneous -Tissue Removed Subcutaneous -Post Debridement (cm) - Length 2.5 -Post Debridement (cm) - Width 2.8 -Post Debridement (cm) - Depth 0.2 -Total Square (Post) (cm) 7.00 -Area of Debridement (cm) - Length 2.5 -Area of Debridement (cm) - Width 2.8 -Total Square (Area) (cm) 7.00 -Tunneling No -Undermining/Tunneling No -Circular Undermining No -Wound/Ulcer Outcome Not Healed -Ulcer Cleansing Rinsed/ Irrigated with Saline -Foul Odor after Cleansing No -Bioengineered Tissue No -Bleeding Controlled with Pressure -Offloading No -Treatment Response Procedure Tolerated Well -Debridement - Subq, 1st 20sq cm Yes 9. R sacral cluster -Time 12:09 -Correct Patient Yes -Correct Side, Site, Position Yes -Correct Procedure Yes -Procedure Performed No -Tunneling No -Undermining/Tunneling No -Circular Undermining No -Wound/Ulcer Outcome Healed- Epithelialized -Bleeding Controlled with NA -Treatment Response Procedure Tolerated Well 8. L heel -Time 12:09 -Correct Patient Yes -Correct Side, Site, Position Yes -Correct Procedure Yes -Procedure Performed Yes -Type of Procedure Debridement -Clinical Debridement Subcutaneous -Tissue Removed Subcutaneous -Post Debridement (cm) - Length 1.9 -Post Debridement (cm) - Width 1.0 -Post Debridement (cm) - Depth 0.1 -Total Square (Post) (cm) 1.90 -Area of Debridement (cm) - Length 1.9 -Area of Debridement (cm) - Width 1.0 -Total Square (Area) (cm) 1.90 -Tunneling No -Undermining/Tunneling No -Circular Undermining No -Wound/Ulcer Outcome Not Healed -Ulcer Cleansing Rinsed/ Irrigated with Saline -Foul Odor after Cleansing No -Bioengineered Tissue No -Bleeding Controlled with Pressure -Offloading No -Debridement - Subq, 1st 20sq cm No 7. L lateral LE -Time 12:10 -Correct Patient Yes -Correct Side, Site, Position Yes -Correct Procedure Yes -Procedure Performed Yes -Type of Procedure Debridement -Clinical Debridement Subcutaneous -Tissue Removed Subcutaneous -Post Debridement (cm) - Length 2.2 -Post Debridement (cm) - Width 1.4 -Post Debridement (cm) - Depth 0.2 -Total Square (Post) (cm) 3.08 -Area of Debridement (cm) - Length 2.2 -Area of Debridement (cm) - Width 1.4 -Total Square (Area) (cm) 3.08 -Tunneling No -Undermining/Tunneling No -Circular Undermining No -Wound/Ulcer Outcome Not Healed -Ulcer Cleansing Rinsed/ Irrigated with Saline -Foul Odor after Cleansing No -Bioengineered Tissue No -Bleeding Controlled with Pressure -Offloading No -Treatment Response Procedure Tolerated Well -Debridement - Subq, 1st 20sq cm No [See Physician Procedure note for Specifics] Pain Scale: 0-10 Numeric [Pain] -Is Patient Pain Free? Yes WC - Nurse 3 - General Ulcer D/C NN Start: 04/20/20 11:42 Freq: Status: Active Protocol: Activity Type Activity Date Activity User E-Sign Co-Sign Detail Recorded Client Recorded Date Recorded By Document 04/20/20 12:37 DL [id number] 04/20/20 12:56 DL 04/20/20 12:37 Wound Care Nurse 3 [Wound Dressing] #12 left buttock fold -Ulcer Cleansing Rinsed/ Irrigated with Saline -Foul Odor after Cleansing No -Primary Dressing Applied Aquacel Extra -Primary Dressing Covered/Secured Dry Gauze, with Secured with Tape -Aquacel Extra 1 #11 right temi rectal -Ulcer Cleansing Rinsed/ Irrigated with Saline -Foul Odor after Cleansing No -Primary Dressing Applied Nugauze, Iodoform -Primary Dressing Covered/Secured Dry Gauze, with Secured with Tape -Nugauze, Iodoform 1/4 1 10. R buttock fold -Ulcer Cleansing Rinsed/ Irrigated with Saline -Foul Odor after Cleansing No -Other Dressing aquacel -Primary Dressing Covered/Secured Dry Gauze, with Secured with Tape 8. L heel -Ulcer Cleansing Wound Cleanser -Foul Odor after Cleansing No -Primary Dressing Applied Promogran Anita Matter -Other Dressing adaptic -Primary Dressing Covered/Secured Dry Gauze, with Secured with Tape -Promogran Anita Matter 1 7. L lateral LE -Ulcer Cleansing Rinsed/ Irrigated with Saline -Foul Odor after Cleansing No -Other Dressing anita -Primary Dressing Covered/Secured Dry Gauze, with Secured with Tape [Post Procedure Tolerated] -Treatment Response Procedure Tolerated Well Vital Signs [Temperature Protocol: VS] -Temperature (97.8 F-99.1 F) 97 F L -Temperature Source Temporal [Pulse] -Pulse Rate (60-100) 119 H -Pulse Location Monitor [Blood Pressure] -Blood Pressure (90/60-120/80) 154/96 H -Blood Pressure Mean (mm Hg) 115 -Source Monitor Pain Scale: 0-10 Numeric [Pain] -Is Patient Pain Free? Yes WC - Visit Discharge [Visit Discharge Information] -Discharge Condition Stable -Ambulatory Status Wheelchair -Transportation Private Auto Psych/Mental Status: Normal Affect, Appropriate Debridement Note Post-Debridement Measurements/Treatment WC - Nurse 2 - General Ulcer CM Notes Start: 04/20/20 11:42 Freq: Status: Active Protocol: Activity Type Activity Date Activity User E-Sign Co-Sign Detail Recorded Client Recorded Date Recorded By Document 04/20/20 12:05 MW [id number] 04/20/20 12:30 MW 04/20/20 12:05 Wound Center Nurse 2 #12 left buttock fold -Time 12:29 -Correct Patient Yes -Correct Side, Site, Position Yes -Correct Procedure Yes -Procedure Performed Yes -Type of Procedure Debridement -Clinical Debridement Subcutaneous -Tissue Removed Subcutaneous -Post Debridement (cm) - Length 0.3 -Post Debridement (cm) - Width 1.8 -Post Debridement (cm) - Depth 0.1 -Total Square (Post) (cm) 0.54 -Area of Debridement (cm) - Length 0.3 -Area of Debridement (cm) - Width 1.8 -Total Square (Area) (cm) 0.54 -Tunneling No -Undermining/Tunneling No -Circular Undermining No -Wound/Ulcer Outcome Not Healed -Ulcer Cleansing Rinsed/ Irrigated with Saline -Foul Odor after Cleansing No -Bioengineered Tissue No -Bleeding Controlled with Pressure -Offloading No -Debridement - Subq, 1st 20sq cm No #11 right temi rectal -Time 12:23 -Correct Patient Yes -Correct Side, Site, Position Yes -Correct Procedure Yes -Procedure Performed Yes -Type of Procedure Debridement -Clinical Debridement Subcutaneous -Tissue Removed Subcutaneous -Post Debridement (cm) - Length 0.1 -Post Debridement (cm) - Width 0.1 -Post Debridement (cm) - Depth 0.3 -Total Square (Post) (cm) 0.01 -Area of Debridement (cm) - Length 0.1 -Area of Debridement (cm) - Width 0.1 -Total Square (Area) (cm) 0.01 -Tunneling No -Undermining/Tunneling No -Circular Undermining No -Wound/Ulcer Outcome Not Healed -Ulcer Cleansing Rinsed/ Irrigated with Saline -Foul Odor after Cleansing No -Bioengineered Tissue No -Bleeding Controlled with Pressure -Offloading No -Treatment Response Procedure Tolerated Well -Debridement - Subq, 1st 20sq cm Yes 10. R buttock fold -Time 12:08 -Correct Patient Yes -Correct Side, Site, Position Yes -Correct Procedure Yes -Procedure Performed Yes -Type of Procedure Debridement -Clinical Debridement Subcutaneous -Tissue Removed Subcutaneous -Post Debridement (cm) - Length 2.5 -Post Debridement (cm) - Width 2.8 -Post Debridement (cm) - Depth 0.2 -Total Square (Post) (cm) 7.00 -Area of Debridement (cm) - Length 2.5 -Area of Debridement (cm) - Width 2.8 -Total Square (Area) (cm) 7.00 -Tunneling No -Undermining/Tunneling No -Circular Undermining No -Wound/Ulcer Outcome Not Healed -Ulcer Cleansing Rinsed/ Irrigated with Saline -Foul Odor after Cleansing No -Bioengineered Tissue No -Bleeding Controlled with Pressure -Offloading No -Treatment Response Procedure Tolerated Well -Debridement - Subq, 1st 20sq cm Yes 9. R sacral cluster -Time 12:09 -Correct Patient Yes -Correct Side, Site, Position Yes -Correct Procedure Yes -Procedure Performed No -Tunneling No -Undermining/Tunneling No -Circular Undermining No -Wound/Ulcer Outcome Healed- Epithelialized -Bleeding Controlled with NA -Treatment Response Procedure Tolerated Well 8. L heel -Time 12:09 -Correct Patient Yes -Correct Side, Site, Position Yes -Correct Procedure Yes -Procedure Performed Yes -Type of Procedure Debridement -Clinical Debridement Subcutaneous -Tissue Removed Subcutaneous -Post Debridement (cm) - Length 1.9 -Post Debridement (cm) - Width 1.0 -Post Debridement (cm) - Depth 0.1 -Total Square (Post) (cm) 1.90 -Area of Debridement (cm) - Length 1.9 -Area of Debridement (cm) - Width 1.0 -Total Square (Area) (cm) 1.90 -Tunneling No -Undermining/Tunneling No -Circular Undermining No -Wound/Ulcer Outcome Not Healed -Ulcer Cleansing Rinsed/ Irrigated with Saline -Foul Odor after Cleansing No -Bioengineered Tissue No -Bleeding Controlled with Pressure -Offloading No -Debridement - Subq, 1st 20sq cm No 7. L lateral LE -Time 12:10 -Correct Patient Yes -Correct Side, Site, Position Yes -Correct Procedure Yes -Procedure Performed Yes -Type of Procedure Debridement -Clinical Debridement Subcutaneous -Tissue Removed Subcutaneous -Post Debridement (cm) - Length 2.2 -Post Debridement (cm) - Width 1.4 -Post Debridement (cm) - Depth 0.2 -Total Square (Post) (cm) 3.08 -Area of Debridement (cm) - Length 2.2 -Area of Debridement (cm) - Width 1.4 -Total Square (Area) (cm) 3.08 -Tunneling No -Undermining/Tunneling No -Circular Undermining No -Wound/Ulcer Outcome Not Healed -Ulcer Cleansing Rinsed/ Irrigated with Saline -Foul Odor after Cleansing No -Bioengineered Tissue No -Bleeding Controlled with Pressure -Offloading No -Treatment Response Procedure Tolerated Well -Debridement - Subq, 1st 20sq cm No Pain Scale: 0-10 Numeric Is Patient Pain Free? Yes WC - Nurse 3 - General Ulcer D/C NN Start: 04/20/20 11:42 Freq: Status: Active Protocol: Activity Type Activity Date Activity User E-Sign Co-Sign Detail Recorded Client Recorded Date Recorded By Document 04/20/20 12:37 DL [id number] 04/20/20 12:56 DL 04/20/20 12:37 Wound Care Nurse 3 #12 left buttock fold -Ulcer Cleansing Rinsed/ Irrigated with Saline -Foul Odor after Cleansing No -Primary Dressing Applied Aquacel Extra -Primary Dressing Covered/Secured with Dry Gauze, Secured with Tape -Aquacel Extra 1 #11 right temi rectal -Ulcer Cleansing Rinsed/ Irrigated with Saline -Foul Odor after Cleansing No -Primary Dressing Applied Nugauze, Iodoform -Primary Dressing Covered/Secured with Dry Gauze, Secured with Tape -Nugauze, Iodoform 1/4 1 10. R buttock fold -Ulcer Cleansing Rinsed/ Irrigated with Saline -Foul Odor after Cleansing No -Other Dressing aquacel -Primary Dressing Covered/Secured with Dry Gauze, Secured with Tape 8. L heel -Ulcer Cleansing Wound Cleanser -Foul Odor after Cleansing No -Primary Dressing Applied Promogran Anita Matter -Other Dressing adaptic -Primary Dressing Covered/Secured with Dry Gauze, Secured with Tape -Promogran Anita Matter 1 7. L lateral LE -Ulcer Cleansing Rinsed/ Irrigated with Saline -Foul Odor after Cleansing No -Other Dressing anita -Primary Dressing Covered/Secured with Dry Gauze, Secured with Tape Treatment Response Procedure Tolerated Well Vital Signs Temperature (97.8 F-99.1 F) 97 F L Temperature Source Temporal Pulse Rate (60-100) 119 H Pulse Location Monitor Blood Pressure (90/60-120/80) 154/96 H Blood Pressure Mean (mm Hg) 115 Source Monitor Pain Scale: 0-10 Numeric Is Patient Pain Free? Yes WC - Visit Discharge Discharge Condition Stable Ambulatory Status Wheelchair Transportation Private Auto Wound debrided: sacral ulcer Laterality: Right Wound Grade/Stage: Stage 2 No debridement was completed today - healed - Additional Wound Wound debrided: left gluteal fold Laterality: Left Wound Grade/Stage: Stage 3 Type of Debridement: Excisional debridement Anesthesia Used: 4% Lidocaine Solution Depth: Down to and including healthy tissue, in the subcutaneous layer Percentage of wound debrided: 100 Instrument Used: 3mm curette Tissue Removed: Yellow slough, devitalized tissue Severity: Fat Layer Exposed Amount of bleeding with debridement: Mild Bleeding Controlled with: Compression and gauze Patient tolerated procedure: Patient tolerated procedure well - Additional Wound Wound debrided: right temi-rectal Laterality: Right Wound Grade/Stage: Stage 2 Type of Debridement: Excisional debridement Anesthesia Used: 4% Lidocaine Solution Depth: Down to and including healthy tissue, in the subcutaneous layer Percentage of wound debrided: 100 Instrument Used: 3mm curette Tissue Removed: Yellow slough, devitalized tissue Severity: Fat Layer Exposed Amount of bleeding with debridement: Mild Bleeding Controlled with: Compression and gauze Patient tolerated procedure: Patient tolerated procedure well - Additional Wound Wound debrided: right gluteal fold Laterality: Right Wound Grade/Stage: Stage 2 Type of Debridement: Excisional debridement Anesthesia Used: 4% Lidocaine Solution Depth: Down to and including healthy tissue, in the subcutaneous layer Percentage of wound debrided: 100 Instrument Used: 3mm curette Tissue Removed: Yellow slough, devitalized tissue Severity: Fat Layer Exposed Amount of bleeding with debridement: Mild Bleeding Controlled with: Compression and gauze Patient tolerated procedure: Patient tolerated procedure well - Additional Wound Wound debrided: left heel Laterality: Left Wound Grade/Stage: Grade 1 Type of Debridement: Excisional debridement Anesthesia Used: 4% Lidocaine Solution Depth: Down to and including healthy tissue, in the subcutaneous layer Percentage of wound debrided: 100 Instrument Used: 5mm curette Tissue Removed: Yellow slough, devitalized tissue Severity: Fat Layer Exposed Amount of bleeding with debridement: Mild Bleeding Controlled with: Compression and gauze Patient tolerated procedure: Patient tolerated procedure well - Additional Wound Wound debrided: left lateral LE Laterality: Left Wound Grade/Stage: Grade 1 Type of Debridement: Excisional debridement Anesthesia Used: 4% Lidocaine Solution Depth: Down to and including healthy tissue, in the subcutaneous layer Percentage of wound debrided: 100 Instrument Used: 5mm curette Tissue Removed: Yellow slough, devitalized tissue Severity: Fat Layer Exposed Amount of bleeding with debridement: Mild Bleeding Controlled with: Compression and gauze Patient tolerated procedure: Patient tolerated procedure well Assessment/Plan Active Problems (Last Reviewed 04/17/20 @ 14:05 by Ana Kc) Pressure ulcer of sacral region, stage 2 (Chronic) Obesity (Chronic) Paraplegia (Chronic) Pressure injury of right buttock, stage 2 (Chronic) Pressure sore of left ischium, stage 3 (Chronic) Diabetic ulcer of lower leg associated with type 2 diabetes mellitus, with fat layer exposed (Chronic) left heel Diabetic ulcer of ankle associated with type 2 diabetes mellitus, with fat layer exposed (Chronic) Diabetic foot ulcer associated with type 2 diabetes mellitus, with fat layer exposed (Chronic) Ulcer of left lower extremity with fat layer exposed (Chronic) Chronic ulcer of left heel (Chronic) Type 2 diabetes mellitus (Chronic) Assessment: Sacral pressure ulcer Stage 2 - healed. Right buttock fold pressure ulcer stage 2. right temi-rectal ulcer. Ulcer of left lateral leg. Ulcer of left heel. ulcer left gluteal fold Stage 3. DM type 2. Wheelchair bound due to paraplegia. PVD Plan: Adiel's wounds were evaluated and debrided today. At home wound-care instructions: Left heel and left lateral LE - Continue daily dressing change with Promogran for moderate to heavy drainage and collagen to enhance healing and cover with adaptic. Apply nurse's hat to heel. Apply Aquacel Silver to left and right gluteal folds. Pack right temi-rectal area with 1/4 iodoform packing daily. May shower. Wash temi-ulcer areas with Dial soap and water and rinse well. Compression: Double Tubigrip's daily for compression. Off-loading: Avoid pressure to left lateral leg, left lateral heel and right sacral and gluteal fold ulcers. Keep feet elevated as much as possible, at or above waist level. Avoid prolonged dangling of legs. Diet: Patient encouraged to increase protein and vitamin C intake while taking caution to avoid high carbohydrate and/or sugar intake. Labs/cultures/imaging: Recent labs and previous records reviewed. Follow-up: Return in 2 weeks for follow up. Return sooner or report to the emergency room should symptoms worsen, or new symptoms arise. Note: [employer] speech recognition laborer wood preserving plant software was used to create portions of this document. Sound-alike and misspelled words, as well as other laborer wood preserving plant errors may be contained in the documentation.
== END 2020-05-19 23:59 ==
LOC: WC 08:08
PROVIDERS: Family Provider Internal Medicine; PCP Internal Medicine; Referring Provider Nurse Practitioner Family; Visit Provider Family Medicine
DX: E11.622 Type 2 diabetes mellitus with other skin ulcer (principal); L89.152 Pressure ulcer of sacral region, stage 2; E66.01 Morbid (severe) obesity due to excess calories; Z68.41 Body mass index [BMI] 40.0-44.9, adult; G82.20 Paraplegia, unspecified; L89.312 Pressure ulcer of right buttock, stage 2; E11.621 Type 2 diabetes mellitus with foot ulcer; L97.422 Non-pressure chronic ulcer of left heel and midfoot with fat layer exposed; K61.1 Rectal abscess; L89.323 Pressure ulcer of left buttock, stage 3; Z99.3 Dependence on wheelchair
CPT/HCPCS: 11042

== ENCOUNTER 2020-05-23 10:00 | Outpatient (RCR) | payer MEDICARE, SELFPAY ==
[2020-05-20 00:11] VITALS: BP 154/96; PULSE 119; RESP 18; TEMP 36.1
[2020-05-23 10:17] VITALS: BP 157/97; PULSE 104; RESP 18; TEMP 35.9; BMI 43.4
[2020-05-23 10:59] VITALS: BP 154/95
--- NOTE | 2020-05-23 11:21 | PN.PCM_ITS ---
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 [facility] areas he is presenting for evaluation today. He has had his current ulcers for over 2 months. He has been treating the areas with silvercell dressings and recently was placed on an antibiotic by his PCP. The left lower leg ulcers appear to be from pressure. He is unsure of how they developed. His ulcers on his sacrum and right buttock are from pressure and friction from transferring from his wheelchair to chair with his slide board. He also has an area that was from a temi-rectal abscess that is still open and draining. He reports that he is independent in his ADL's but does have a nurse that comes to care for him daily in the morning for a short time daily. He has a history of Type 2 DM, last A1C 7.0% on 12/20/2019. He has been seen at both our wound healing center and [facility] in [place] in the past for previous uclers. He has previously received Apligraf to his ulcers of his lower legs but the last application was probably 9 months ago. The patient denies any fever, chills, nausea, vomiting, or diarrhea. Denies any signs of infection, including increasing pain, redness, swelling, or drainage from affected area. Progress of Wound: Adiel presents today for follow up of multiple ulcers. Left Kulick gluteal fold his left heel and his perirectal area has already healed. We are now dealing with his right gluteal fold and his left lateral lower leg. These both seem to be smaller than they were we will continue using Fibracol and each wound base he has been using silver cell. His skin is extremely dry in those areas of healing we recommended AmLactin cream to heels and lentiginous areas and even around his buttocks area is very dry. - Physical Exam Vital Signs Temp Pulse Resp BP 96.6 F L 104 H 18 154/95 H 05/23/20 10:17 05/23/20 10:17 05/23/20 10:17 05/23/20 10:59 General: Oriented x3, Cooperative, Well developed HEENT: Atraumatic, PERRLA Oral: Moist Mucosa Neck: Supple, No JVD Lungs: Clear to auscultation, Normal air movement Cardiovascular: Regular rate, Regular Rhythm Abdomen: Bowel Sounds Present, Soft, Non Tender, No Hepato-splenomegaly Extremities: No clubbing, No edema Skin: Ulcer/ Wound - Decubitus ulcer of the right gluteal fold, and a diabetic ulcer on the left lateral lower leg Wound Measurements and Assessment WC - Nurse 1 - General Ulcer Measurement Start: 05/23/20 09:56 Freq: Status: Active Protocol: Activity Type Activity Date Activity User E-Sign Co-Sign Detail Recorded Client Recorded Date Recorded By Document 05/23/20 10:17 MS [id number] 05/23/20 10:32 MS 05/23/20 10:17 Wound Center Nurse 1 [Ulcer Assessment] #12 left buttock fold -Current Size (cm) - Length 0.1 -Current Size (cm) - Width 0.1 -Current Size (cm) - Depth 0.1 -Total Square Cm 0.01 -Epithelialization Large 67-100% -Texture (Temi-wound Skin Appearance) Assessed -Moisture (Temi-wound Skin Appearance Assessed ) -Color (Temi-wound Skin Appearance) Assessed -Temperature (Temi-wound Skin No Abnormality Appearance) (Pt Warm) -Tenderness on Palpation (Temi-wound No Skin Appearance) -Ulcer Cleansing Rinsed/ Irrigated with Saline -Foul Odor after Cleansing No #11 right temi rectal -Current Size (cm) - Length 1 -Current Size (cm) - Width 3.5 -Current Size (cm) - Depth 0.3 -Total Square Cm 3.5 -Exudate Amt None Present -Wound Margin Flat & Intact -Granulation Amt Large (67-100%) -Granulation Quality Pale,Choudrant -Slough/Fibrin No -Texture (Temi-wound Skin Appearance) Assessed -Moisture (Temi-wound Skin Appearance Assessed ) -Color (Temi-wound Skin Appearance) Assessed -Temperature (Temi-wound Skin No Abnormality Appearance) (Pt Warm) -Tenderness on Palpation (Temi-wound No Skin Appearance) -Ulcer Cleansing Rinsed/ Irrigated with Saline -Foul Odor after Cleansing No -Anesthetic Used 4% Lidocaine Solution 10. R buttock fold -Current Size (cm) - Length 0.1 -Current Size (cm) - Width 0.1 -Current Size (cm) - Depth 0.1 -Total Square Cm 0.01 -Texture (Temi-wound Skin Appearance) Assessed,Rash -Moisture (Temi-wound Skin Appearance Assessed ) -Color (Temi-wound Skin Appearance) Assessed 8. L heel -Current Size (cm) - Length 1.5 -Current Size (cm) - Width 1.2 -Current Size (cm) - Depth 0.1 -Total Square Cm 1.80 -Wound Margin Thickened -Texture (Temi-wound Skin Appearance) Assessed,Callus -Moisture (Temi-wound Skin Appearance Assessed ) -Color (Temi-wound Skin Appearance) Assessed -Temperature (Temi-wound Skin No Abnormality Appearance) (Pt Warm) -Tenderness on Palpation (Temi-wound No Skin Appearance) -Ulcer Cleansing Rinsed/ Irrigated with Saline -Foul Odor after Cleansing No -Anesthetic Used 4% Lidocaine Solution 7. L lateral LE -Current Size (cm) - Length 2.5 -Current Size (cm) - Width 2.3 -Current Size (cm) - Depth 0.2 -Total Square Cm 5.75 -Exudate Amt Small -Exudate Type Serosanguineous -Wound Margin Flat & Intact -Granulation Amt Large (67-100%) -Granulation Quality Pale,Choudrant -Necrosis Amt Small (1-33%) -Necrotic Tissue Type Adherent Slough -Texture (Temi-wound Skin Appearance) Assessed -Moisture (Temi-wound Skin Appearance Assessed, ) Maceration -Color (Temi-wound Skin Appearance) Assessed -Temperature (Temi-wound Skin No Abnormality Appearance) (Pt Warm) -Tenderness on Palpation (Temi-wound No Skin Appearance) -Ulcer Cleansing Wound Cleanser -Foul Odor after Cleansing No -Anesthetic Used 4% Lidocaine Solution [Edema Assessment] -Lower Limb Edema Present NA WC - Nurse 2 - General Ulcer CM Notes Start: 05/23/20 09:56 Freq: Status: Active Protocol: Activity Type Activity Date Activity User E-Sign Co-Sign Detail Recorded Client Recorded Date Recorded By Document 05/23/20 10:45 MW [id number] 05/23/20 10:52 MW 05/23/20 10:45 Wound Center Nurse 2 [Procedure/Treatment] #12 left buttock fold -Time 10:46 -Correct Patient Yes -Correct Side, Site, Position Yes -Correct Procedure Yes -Procedure Performed No -Post Debridement (cm) - Length 0 -Post Debridement (cm) - Width 0 -Post Debridement (cm) - Depth 0 -Total Square (Post) (cm) 0 -Wound/Ulcer Outcome Healed- Epithelialized #11 right temi rectal -Time 10:47 -Correct Patient Yes -Correct Side, Site, Position Yes -Correct Procedure Yes -Procedure Performed No -Post Debridement (cm) - Length 0 -Post Debridement (cm) - Width 0 -Post Debridement (cm) - Depth 0 -Total Square (Post) (cm) 0 -Wound/Ulcer Outcome Healed- Epithelialized 10. R buttock fold -Time 10:47 -Correct Patient Yes -Correct Side, Site, Position Yes -Correct Procedure Yes -Procedure Performed Yes -Type of Procedure Debridement -Clinical Debridement Subcutaneous -Tissue Removed Subcutaneous -Post Debridement (cm) - Length 1.5 -Post Debridement (cm) - Width 2.0 -Post Debridement (cm) - Depth 0.7 -Total Square (Post) (cm) 3.00 -Area of Debridement (cm) - Length 1.5 -Area of Debridement (cm) - Width 2.0 -Total Square (Area) (cm) 3.00 -Tunneling No -Undermining/Tunneling No -Circular Undermining No -Wound/Ulcer Outcome Not Healed -Ulcer Cleansing Rinsed/ Irrigated with Saline -Foul Odor after Cleansing No -Bioengineered Tissue No -Bleeding Controlled with Pressure -Offloading No -Treatment Response Procedure Tolerated Well -Debridement - Subq, 1st 20sq cm Yes 8. L heel -Time 10:49 -Correct Patient Yes -Correct Side, Site, Position Yes -Correct Procedure Yes -Procedure Performed No -Post Debridement (cm) - Length 0 -Post Debridement (cm) - Width 0 -Post Debridement (cm) - Depth 0 -Total Square (Post) (cm) 0 -Wound/Ulcer Outcome Healed- Epithelialized 7. L lateral LE -Time 10:49 -Correct Patient Yes -Correct Side, Site, Position Yes -Correct Procedure Yes -Procedure Performed Yes -Type of Procedure Debridement -Clinical Debridement Subcutaneous -Tissue Removed Subcutaneous -Post Debridement (cm) - Length 2.4 -Post Debridement (cm) - Width 2.0 -Post Debridement (cm) - Depth 0.2 -Total Square (Post) (cm) 4.80 -Area of Debridement (cm) - Length 2.4 -Area of Debridement (cm) - Width 2.0 -Total Square (Area) (cm) 4.80 -Tunneling No -Undermining/Tunneling No -Circular Undermining No -Wound/Ulcer Outcome Not Healed -Ulcer Cleansing Rinsed/ Irrigated with Saline -Foul Odor after Cleansing No -Bioengineered Tissue No -Bleeding Controlled with Pressure -Offloading No -Debridement - Subq, 1st 20sq cm No [See Physician Procedure note for Specifics] Pain Scale: 0-10 Numeric [Pain] -Is Patient Pain Free? Yes - Nurse 3 - General Ulcer D/C NN Start: 05/23/20 09:56 Freq: Status: Active Protocol: Activity Type Activity Date Activity User E-Sign Co-Sign Detail Recorded Client Recorded Date Recorded By Document 05/23/20 10:59 NH [id number] 05/23/20 11:06 NH 05/23/20 10:59 Wound Care Nurse 3 [Wound Dressing] 10. R buttock fold -Ulcer Cleansing Rinsed/ Irrigated with Saline -Primary Dressing Applied Fibracol Plus 4x4 -Other Dressing abd, adaptic -Primary Dressing Covered/Secured Dry Gauze, with Secured with Tape -Fibracol Plus 4x4 1 7. L lateral LE -Ulcer Cleansing Rinsed/ Irrigated with Saline Vital Signs [Blood Pressure] -Blood Pressure (90/60-120/80 mm Hg) 154/95 H -Blood Pressure Mean (mm Hg) 114 -Source Monitor -Position Sitting -Blood Pressure Location Right Arm Pain Scale: 0-10 Numeric [Pain] -Is Patient Pain Free? Yes - Visit Discharge [Visit Discharge Information] -Discharge Condition Stable -Ambulatory Status Wheelchair -Transportation Private Auto -Medication Reconcilliation completed No & provided to patient/care provider -Clinical Summary of Care Provided Yes Musculoskeletal: No Tenderness to Palpation of Joints or Extremities Lymphatic: No Cervical, Supraclavicular, or Inguinal Adenopathy Neurological: Cranial nerves II-XII grossly intact, Neuro grossly intact Psych/Mental Status: Normal Affect, Appropriate Debridement Note Post-Debridement Measurements/Treatment WC - Nurse 2 - General Ulcer CM Notes Start: 05/23/20 09:56 Freq: Status: Active Protocol: Activity Type Activity Date Activity User E-Sign Co-Sign Detail Recorded Client Recorded Date Recorded By Document 05/23/20 10:45 MW [id number] 05/23/20 10:52 MW 05/23/20 10:45 Wound Center Nurse 2 #12 left buttock fold -Time 10:46 -Correct Patient Yes -Correct Side, Site, Position Yes -Correct Procedure Yes -Procedure Performed No -Post Debridement (cm) - Length 0 -Post Debridement (cm) - Width 0 -Post Debridement (cm) - Depth 0 -Total Square (Post) (cm) 0 -Wound/Ulcer Outcome Healed- Epithelialized #11 right temi rectal -Time 10:47 -Correct Patient Yes -Correct Side, Site, Position Yes -Correct Procedure Yes -Procedure Performed No -Post Debridement (cm) - Length 0 -Post Debridement (cm) - Width 0 -Post Debridement (cm) - Depth 0 -Total Square (Post) (cm) 0 -Wound/Ulcer Outcome Healed- Epithelialized 10. R buttock fold -Time 10:47 -Correct Patient Yes -Correct Side, Site, Position Yes -Correct Procedure Yes -Procedure Performed Yes -Type of Procedure Debridement -Clinical Debridement Subcutaneous -Tissue Removed Subcutaneous -Post Debridement (cm) - Length 1.5 -Post Debridement (cm) - Width 2.0 -Post Debridement (cm) - Depth 0.7 -Total Square (Post) (cm) 3.00 -Area of Debridement (cm) - Length 1.5 -Area of Debridement (cm) - Width 2.0 -Total Square (Area) (cm) 3.00 -Tunneling No -Undermining/Tunneling No -Circular Undermining No -Wound/Ulcer Outcome Not Healed -Ulcer Cleansing Rinsed/ Irrigated with Saline -Foul Odor after Cleansing No -Bioengineered Tissue No -Bleeding Controlled with Pressure -Offloading No -Treatment Response Procedure Tolerated Well -Debridement - Subq, 1st 20sq cm Yes 8. L heel -Time 10:49 -Correct Patient Yes -Correct Side, Site, Position Yes -Correct Procedure Yes -Procedure Performed No -Post Debridement (cm) - Length 0 -Post Debridement (cm) - Width 0 -Post Debridement (cm) - Depth 0 -Total Square (Post) (cm) 0 -Wound/Ulcer Outcome Healed- Epithelialized 7. L lateral LE -Time 10:49 -Correct Patient Yes -Correct Side, Site, Position Yes -Correct Procedure Yes -Procedure Performed Yes -Type of Procedure Debridement -Clinical Debridement Subcutaneous -Tissue Removed Subcutaneous -Post Debridement (cm) - Length 2.4 -Post Debridement (cm) - Width 2.0 -Post Debridement (cm) - Depth 0.2 -Total Square (Post) (cm) 4.80 -Area of Debridement (cm) - Length 2.4 -Area of Debridement (cm) - Width 2.0 -Total Square (Area) (cm) 4.80 -Tunneling No -Undermining/Tunneling No -Circular Undermining No -Wound/Ulcer Outcome Not Healed -Ulcer Cleansing Rinsed/ Irrigated with Saline -Foul Odor after Cleansing No -Bioengineered Tissue No -Bleeding Controlled with Pressure -Offloading No -Debridement - Subq, 1st 20sq cm No Pain Scale: 0-10 Numeric Is Patient Pain Free? Yes - Nurse 3 - General Ulcer D/C NN Start: 05/23/20 09:56 Freq: Status: Active Protocol: Activity Type Activity Date Activity User E-Sign Co-Sign Detail Recorded Client Recorded Date Recorded By Document 05/23/20 10:59 NH [id number] 05/23/20 11:06 NH 05/23/20 10:59 Wound Care Nurse 3 10. R buttock fold -Ulcer Cleansing Rinsed/ Irrigated with Saline -Primary Dressing Applied Fibracol Plus 4x4 -Other Dressing abd, adaptic -Primary Dressing Covered/Secured with Dry Gauze, Secured with Tape -Fibracol Plus 4x4 1 7. L lateral LE -Ulcer Cleansing Rinsed/ Irrigated with Saline Vital Signs Blood Pressure (90/60-120/80 mm Hg) 154/95 H Blood Pressure Mean (mm Hg) 114 Source Monitor Position Sitting Blood Pressure Location Right Arm Pain Scale: 0-10 Numeric Is Patient Pain Free? Yes WC - Visit Discharge Discharge Condition Stable Ambulatory Status Wheelchair Transportation Private Auto Medication Reconcilliation completed & No provided to patient/care provider Clinical Summary of Care Provided Yes Wound debrided: Lateral lower leg Type of Debridement: Excisional debridement Anesthesia Used: 5% Lidocaine Gel Depth: Down to and including healthy tissue, in the subcutaneous layer Percentage of wound debrided: 100 Instrument Used: 5mm curette Tissue Removed: Fibrin Severity: Limited To Skin Breakdown Amount of bleeding with debridement: Mild Bleeding Controlled with: Compression and gauze Patient tolerated procedure well - Additional Wound Wound debrided: Right gluteal fold decubitus ulcer Wound Grade/Stage: Stage II Type of Debridement: Excisional debridement Anesthesia Used: 5% Lidocaine Gel Depth: Down to and including healthy tissue Percentage of wound debrided: 100 Instrument Used: 5mm curette Tissue Removed: Fibrin Severity: Fat Layer Exposed Amount of bleeding with debridement: Mild Bleeding Controlled with: Compression and gauze Patient tolerated procedure: Patient tolerated procedure well Assessment/Plan Active Problems (Last Reviewed 04/17/20 @ 14:05 by Ana Kc) Pressure injury of right buttock, stage 2 (Chronic) Diabetic ulcer of lower leg associated with type 2 diabetes mellitus, with fat layer exposed (Chronic) left heel Type 2 diabetes mellitus (Chronic) 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 Right buttock fold pressure ulcer stage 2. right temi-rectal ulcer. Ulcer of left lateral leg. Ulcer of left heel. ulcer left gluteal fold Stage 3. DM type 2. Wheelchair bound due to paraplegia. PVD Plan: Wendy wounds were evaluated and debrided today. At home wound-care instructions: AmLactin cream to the left heel and foot dry spots and to the left gluteal fold area. To the right gluteal fold and wound left lateral leg apply Fibracol to the wound base moistened with tap water then covered with Adaptic and gauze and tape. Follow-up in 1 week we will apply for skin subs for him on his left lateral lower leg. Apply Aquacel Silver to left and right gluteal folds. Pack right temi-rectal area with 1/4 iodoform packing daily. May shower. Wash temi-ulcer areas with Dial soap and water and rinse well. Compression: Double Tubigrip's daily for compression. Off-loading: Avoid pressure to left lateral leg, left lateral heel and right sacral and gluteal fold ulcers. Keep feet elevated as much as possible, at or above waist level. Avoid prolonged dangling of legs. Diet: Patient encouraged to increase protein and vitamin C intake while taking caution to avoid high carbohydrate and/or sugar intake. Labs/cultures/imaging: Recent labs and previous records reviewed. Follow-up: Return in 2 weeks for follow up. Return sooner or report to the emergency room should symptoms worsen, or new symptoms arise. Note: [employer] speech recognition aquatics lifeguard software was used to create portions of this document. Sound-alike and misspelled words, as well as other aquatics lifeguard errors may be contained in the documentation.
== END 2020-06-18 23:59 ==
LOC: WC 10:00
PROVIDERS: Family Provider Internal Medicine; PCP Internal Medicine; Referring Provider Nurse Practitioner Family; Visit Provider Family Medicine
DX: E11.622 Type 2 diabetes mellitus with other skin ulcer (principal); L97.822 Non-pressure chronic ulcer of other part of left lower leg with fat layer exposed; L89.312 Pressure ulcer of right buttock, stage 2; G82.20 Paraplegia, unspecified; Z99.3 Dependence on wheelchair
CPT/HCPCS: 11042

== ENCOUNTER 2020-07-11 10:45 | Outpatient (RCR) | payer MEDICARE, SELFPAY ==
[2020-06-19 00:14] VITALS: BP 154/95; PULSE 104; RESP 18; TEMP 35.9
--- NOTE | 2020-06-27 12:49 | PCM.WC.PN ---
(1) Diabetic foot ulcer associated with type 2 diabetes mellitus, with fat layer exposed Status: Chronic Qualifiers: Diabetic foot ulcer location: heel Code(s): E11.621 - Type 2 diabetes mellitus with foot ulcer; L97.502 - Non-pressure chronic ulcer of other part of unspecified foot with fat layer exposed (2) PVD (peripheral vascular disease) Status: Chronic Code(s): I73.9 - Peripheral vascular disease, unspecified (3) Paralysis Status: Chronic Code(s): G83.9 - Paralytic syndrome, unspecified (4) Paraplegia Status: Chronic Code(s): G82.20 - Paraplegia, unspecified (5) Pressure injury of right buttock, stage 2 Status: Chronic Code(s): L89.312 - Pressure ulcer of right buttock, stage 2 (6) Ulcer of left lower extremity with fat layer exposed Status: Chronic Code(s): L97.922 - Non-pressure chronic ulcer of unspecified part of left lower leg with fat layer exposed Type of Wound Date of Service: 06/27/20 Chief Complaint: Ulcer on left posterior heel, left lateral leg and right and left gluteal fold, temi-rectal ulcer and sacral ulcer History of Wound: Adiel is a 34 year old male who is wheelchair bound and paraplegic. [facility] areas he is presenting for evaluation today. He has had his current ulcers for over 2 months. He has been treating the areas with silvercell dressings and recently was placed on an antibiotic by his PCP. The left lower leg ulcers appear to be from pressure. He is unsure of how they developed. His ulcers on his sacrum and right buttock are from pressure and friction from transferring from his wheelchair to chair with his slide board. He also has an area that was from a temi-rectal abscess that is still open and draining. He reports that he is independent in his ADL's but does have a nurse that comes to care for him daily in the morning for a short time daily. He has a history of Type 2 DM, last A1C 7.0% on 12/20/2019. He has been seen at both our wound healing center and [facility]'s in [place] in the past for previous uclers. He has previously received Apligraf to his ulcers of his lower legs but the last application was probably 9 months ago. The patient denies any fever, chills, nausea, vomiting, or diarrhea. Denies any signs of infection, including increasing pain, redness, swelling, or drainage from affected area. Progress of Wound: Adiel presents today for follow up of multiple ulcers. Right buttocks fold his left heel and left lateral lower leg. These both seem to be smaller than they were we will continue using Fibracol. His skin is extremely dry in those areas of healing we recommended AmLactin cream to heels and entiginous areas and even around his buttocks area is very dry. - Physical Exam Vital Signs Temp Pulse Resp BP 96.6 F L 104 H 18 154/95 H 06/19/20 00:14 06/19/20 00:14 06/19/20 00:14 06/19/20 00:14 General: Oriented x3, Cooperative, Well developed HEENT: Atraumatic, PERRLA Oral: Moist Mucosa Neck: Supple, No JVD Lungs: Clear to auscultation, Normal air movement Cardiovascular: Regular rate, Regular Rhythm Abdomen: Bowel Sounds Present, Soft, Non Tender, No Hepato-splenomegaly Extremities: No clubbing, No edema Skin: No breakdown - Right buttock stage II left lateral leg pressure and left DFU of the heel from shearing, Ulcer/ Wound Wound Measurements and Assessment WC - Nurse 1 - General Ulcer Measurement Start: 06/21/20 07:34 Freq: Status: Active Protocol: Activity Type Activity Date Activity User E-Sign Co-Sign Detail Recorded Client Recorded Date Recorded By Document 06/27/20 11:24 ANNALISE [id number] 06/27/20 11:34 ANNALISE 06/27/20 11:24 Wound Center Nurse 1 [Ulcer Assessment] 10. R buttock fold -Combined with other wound No -Current Size (cm) - Length 1 -Current Size (cm) - Width 2 -Current Size (cm) - Depth 0.4 -Total Square Cm 2 -Tunneling No -Undermining/Tunneling No -Circular Undermining No -Exudate Amt Small -Exudate Type Serosanguineous -Wound Margin Thickened & Rolled Under -Granulation Amt Medium (34-66%) -Granulation Quality [place] -Slough/Fibrin Yes -Necrosis Amt Small (1-33%) -Necrotic Tissue Type Adherent Slough -Structure Exposed N/A -Texture (Temi-wound Skin Appearance) Assessed, Scarring -Moisture (Temi-wound Skin Appearance Assessed ) -Color (Temi-wound Skin Appearance) Assessed -Temperature (Temi-wound Skin No Abnormality Appearance) (Pt Warm) -Tenderness on Palpation (Temi-wound No Skin Appearance) -Ulcer Cleansing Wound Cleanser -Foul Odor after Cleansing No -Anesthetic Used 4% Lidocaine Solution 8. L heel -Combined with other wound No -Current Size (cm) - Length 1 -Current Size (cm) - Width 1.3 -Current Size (cm) - Depth 0.1 -Total Square Cm 1.3 -Tunneling No -Undermining/Tunneling No -Circular Undermining No -Exudate Amt Medium -Exudate Type Serosanguineous -Wound Margin Thickened & Rolled Under -Granulation Amt Medium (34-66%) -Granulation Quality [place] -Slough/Fibrin Yes -Necrosis Amt Small (1-33%) -Necrotic Tissue Type Adherent Slough -Structure Exposed N/A -Texture (Temi-wound Skin Appearance) Assessed, Scarring -Moisture (Temi-wound Skin Appearance Assessed ) -Color (Temi-wound Skin Appearance) Assessed -Temperature (Temi-wound Skin No Abnormality Appearance) (Pt Warm) -Tenderness on Palpation (Temi-wound No Skin Appearance) -Ulcer Cleansing Wound Cleanser -Foul Odor after Cleansing No -Anesthetic Used 4% Lidocaine Solution 7. L lateral LE -Combined with other wound No -Current Size (cm) - Length 2 -Current Size (cm) - Width 1.3 -Current Size (cm) - Depth 0.2 -Total Square Cm 2.6 -Tunneling No -Undermining/Tunneling No -Circular Undermining No -Exudate Amt Medium -Exudate Type Serosanguineous -Wound Margin Thickened & Rolled Under -Granulation Amt Medium (34-66%) -Granulation Quality [place] -Slough/Fibrin Yes -Necrosis Amt Small (1-33%) -Necrotic Tissue Type Adherent Slough -Structure Exposed N/A -Texture (Temi-wound Skin Appearance) Assessed, Scarring -Moisture (Temi-wound Skin Appearance Assessed ) -Color (Temi-wound Skin Appearance) Assessed -Temperature (Temi-wound Skin No Abnormality Appearance) (Pt Warm) -Tenderness on Palpation (Temi-wound No Skin Appearance) -Ulcer Cleansing Wound Cleanser -Foul Odor after Cleansing No -Anesthetic Used 4% Lidocaine Solution WC - Nurse 2 - General Ulcer CM Notes Start: 06/21/20 07:34 Freq: Status: Active Protocol: Activity Type Activity Date Activity User E-Sign Co-Sign Detail Recorded Client Recorded Date Recorded By Document 06/27/20 11:45 MW [id number] 06/27/20 11:55 MW 06/27/20 11:45 Wound Center Nurse 2 [Procedure/Treatment] 10. R buttock fold -Time 11:46 -Correct Patient Yes -Correct Side, Site, Position Yes -Correct Procedure Yes -Procedure Performed Yes -Type of Procedure Debridement -Clinical Debridement Subcutaneous -Tissue Removed Subcutaneous -Post Debridement (cm) - Length 1.5 -Post Debridement (cm) - Width 2.5 -Post Debridement (cm) - Depth 0.5 -Total Square (Post) (cm) 3.75 -Area of Debridement (cm) - Length 1.5 -Area of Debridement (cm) - Width 2.5 -Total Square (Area) (cm) 3.75 -Tunneling No -Undermining/Tunneling No -Circular Undermining No -Wound/Ulcer Outcome Not Healed -Ulcer Cleansing Rinsed/ Irrigated with Saline -Foul Odor after Cleansing No -Bioengineered Tissue No -Bleeding Controlled with Pressure -Offloading No -Treatment Response Procedure Tolerated Well -Debridement - Subq, 1st 20sq cm Yes 8. L heel -Time 11:48 -Correct Patient Yes -Correct Side, Site, Position Yes -Correct Procedure Yes -Procedure Performed Yes -Type of Procedure Debridement -Clinical Debridement Subcutaneous -Tissue Removed Subcutaneous -Post Debridement (cm) - Length 2.4 -Post Debridement (cm) - Width 1.2 -Post Debridement (cm) - Depth 0.1 -Total Square (Post) (cm) 2.88 -Area of Debridement (cm) - Length 2.4 -Area of Debridement (cm) - Width 1.2 -Total Square (Area) (cm) 2.88 -Tunneling No -Undermining/Tunneling No -Circular Undermining No -Wound/Ulcer Outcome Not Healed -Ulcer Cleansing Rinsed/ Irrigated with Saline -Foul Odor after Cleansing No -Bioengineered Tissue No -Bleeding Controlled with Pressure -Offloading No -Treatment Response Procedure Tolerated Well -Debridement - Subq, 1st 20sq cm No 7. L lateral LE -Time 11:48 -Correct Patient Yes -Correct Side, Site, Position Yes -Correct Procedure Yes -Procedure Performed Yes -Type of Procedure Debridement -Clinical Debridement Subcutaneous -Tissue Removed Subcutaneous -Post Debridement (cm) - Length 2.0 -Post Debridement (cm) - Width 1.5 -Post Debridement (cm) - Depth 0.2 -Total Square (Post) (cm) 3.00 -Area of Debridement (cm) - Length 2.0 -Area of Debridement (cm) - Width 1.5 -Total Square (Area) (cm) 3.00 -Tunneling No -Undermining/Tunneling No -Circular Undermining No -Wound/Ulcer Outcome Not Healed -Ulcer Cleansing Rinsed/ Irrigated with Saline -Foul Odor after Cleansing No -Bioengineered Tissue No -Bleeding Controlled with Pressure -Offloading No -Treatment Response Procedure Tolerated Well -Debridement - Subq, 1st 20sq cm No [See Physician Procedure note for Specifics] Pain Scale: 0-10 Numeric [Pain] -Is Patient Pain Free? Yes - Nurse 3 - General Ulcer D/C NN Start: 06/21/20 07:34 Freq: Status: Active Protocol: Activity Type Activity Date Activity User E-Sign Co-Sign Detail Recorded Client Recorded Date Recorded By Document 06/27/20 11:58 ANNALISE [id number] 06/27/20 12:00 ANNALISE 06/27/20 11:58 Wound Care Nurse 3 [Wound Dressing] 10. R buttock fold -Ulcer Cleansing Rinsed/ Irrigated with Saline -Foul Odor after Cleansing No -Primary Dressing Applied Fibracol Plus 4x4,NonAdherent Contact Layer -Primary Dressing Covered/Secured Dry Gauze & with Roll Gauze, Secured with Tape -Fibracol Plus 4x4 1 8. L heel -Ulcer Cleansing Rinsed/ Irrigated with Saline -Foul Odor after Cleansing No -Negative Pressure Wound Therapy N/A -Primary Dressing Covered/Secured Dry Gauze & with Roll Gauze, Secured with Tape 7. L lateral LE -Ulcer Cleansing Rinsed/ Irrigated with Saline -Foul Odor after Cleansing No -Negative Pressure Wound Therapy N/A -Primary Dressing Covered/Secured Dry Gauze & with Roll Gauze, Secured with Tape Pain Scale: 0-10 Numeric [Pain] -Is Patient Pain Free? Yes - Visit Discharge [Visit Discharge Information] -Discharge Condition Stable -Ambulatory Status Wheelchair -Transportation Private Auto Musculoskeletal: No Tenderness to Palpation of Joints or Extremities Lymphatic: No Cervical, Supraclavicular, or Inguinal Adenopathy Neurological: Cranial nerves II-XII grossly intact, Neuro grossly intact Psych/Mental Status: Normal Affect, Appropriate Debridement Note Post-Debridement Measurements/Treatment WC - Nurse 2 - General Ulcer CM Notes Start: 06/21/20 07:34 Freq: Status: Active Protocol: Activity Type Activity Date Activity User E-Sign Co-Sign Detail Recorded Client Recorded Date Recorded By Document 06/27/20 11:45 MW [id number] 06/27/20 11:55 MW 06/27/20 11:45 Wound Center Nurse 2 10. R buttock fold -Time 11:46 -Correct Patient Yes -Correct Side, Site, Position Yes -Correct Procedure Yes -Procedure Performed Yes -Type of Procedure Debridement -Clinical Debridement Subcutaneous -Tissue Removed Subcutaneous -Post Debridement (cm) - Length 1.5 -Post Debridement (cm) - Width 2.5 -Post Debridement (cm) - Depth 0.5 -Total Square (Post) (cm) 3.75 -Area of Debridement (cm) - Length 1.5 -Area of Debridement (cm) - Width 2.5 -Total Square (Area) (cm) 3.75 -Tunneling No -Undermining/Tunneling No -Circular Undermining No -Wound/Ulcer Outcome Not Healed -Ulcer Cleansing Rinsed/ Irrigated with Saline -Foul Odor after Cleansing No -Bioengineered Tissue No -Bleeding Controlled with Pressure -Offloading No -Treatment Response Procedure Tolerated Well -Debridement - Subq, 1st 20sq cm Yes 8. L heel -Time 11:48 -Correct Patient Yes -Correct Side, Site, Position Yes -Correct Procedure Yes -Procedure Performed Yes -Type of Procedure Debridement -Clinical Debridement Subcutaneous -Tissue Removed Subcutaneous -Post Debridement (cm) - Length 2.4 -Post Debridement (cm) - Width 1.2 -Post Debridement (cm) - Depth 0.1 -Total Square (Post) (cm) 2.88 -Area of Debridement (cm) - Length 2.4 -Area of Debridement (cm) - Width 1.2 -Total Square (Area) (cm) 2.88 -Tunneling No -Undermining/Tunneling No -Circular Undermining No -Wound/Ulcer Outcome Not Healed -Ulcer Cleansing Rinsed/ Irrigated with Saline -Foul Odor after Cleansing No -Bioengineered Tissue No -Bleeding Controlled with Pressure -Offloading No -Treatment Response Procedure Tolerated Well -Debridement - Subq, 1st 20sq cm No 7. L lateral LE -Time 11:48 -Correct Patient Yes -Correct Side, Site, Position Yes -Correct Procedure Yes -Procedure Performed Yes -Type of Procedure Debridement -Clinical Debridement Subcutaneous -Tissue Removed Subcutaneous -Post Debridement (cm) - Length 2.0 -Post Debridement (cm) - Width 1.5 -Post Debridement (cm) - Depth 0.2 -Total Square (Post) (cm) 3.00 -Area of Debridement (cm) - Length 2.0 -Area of Debridement (cm) - Width 1.5 -Total Square (Area) (cm) 3.00 -Tunneling No -Undermining/Tunneling No -Circular Undermining No -Wound/Ulcer Outcome Not Healed -Ulcer Cleansing Rinsed/ Irrigated with Saline -Foul Odor after Cleansing No -Bioengineered Tissue No -Bleeding Controlled with Pressure -Offloading No -Treatment Response Procedure Tolerated Well -Debridement - Subq, 1st 20sq cm No Pain Scale: 0-10 Numeric Is Patient Pain Free? Yes WC - Nurse 3 - General Ulcer D/C NN Start: 06/21/20 07:34 Freq: Status: Active Protocol: Activity Type Activity Date Activity User E-Sign Co-Sign Detail Recorded Client Recorded Date Recorded By Document 06/27/20 11:58 ANNALISE [id number] 06/27/20 12:00 ANNALISE 06/27/20 11:58 Wound Care Nurse 3 10. R buttock fold -Ulcer Cleansing Rinsed/ Irrigated with Saline -Foul Odor after Cleansing No -Primary Dressing Applied Fibracol Plus 4x4,NonAdherent Contact Layer -Primary Dressing Covered/Secured with Dry Gauze & Roll Gauze, Secured with Tape -Fibracol Plus 4x4 1 8. L heel -Ulcer Cleansing Rinsed/ Irrigated with Saline -Foul Odor after Cleansing No -Negative Pressure Wound Therapy N/A -Primary Dressing Covered/Secured with Dry Gauze & Roll Gauze, Secured with Tape 7. L lateral LE -Ulcer Cleansing Rinsed/ Irrigated with Saline -Foul Odor after Cleansing No -Negative Pressure Wound Therapy N/A -Primary Dressing Covered/Secured with Dry Gauze & Roll Gauze, Secured with Tape Pain Scale: 0-10 Numeric Is Patient Pain Free? Yes WC - Visit Discharge Discharge Condition Stable Ambulatory Status Wheelchair Transportation Private Auto Wound debrided: Right buttocks Wound Grade/Stage: Stage II Type of Debridement: Excisional debridement Anesthesia Used: 5% Lidocaine Gel Depth: Down to and including healthy tissue, in the subcutaneous layer Percentage of wound debrided: 100 Instrument Used: 7mm curette, - - Nippers Tissue Removed: deVitalized tissue and fibrin Severity: Fat Layer Exposed Amount of bleeding with debridement: Mild Bleeding Controlled with: Pressure, Compression and gauze Patient tolerated procedure well - Additional Wound Wound debrided: Left lateral lower leg Wound Grade/Stage: Stage II Type of Debridement: Excisional debridement Anesthesia Used: 5% Lidocaine Gel Depth: Down to and including healthy tissue, in the subcutaneous layer Percentage of wound debrided: 100 Instrument Used: 7mm curette, - - Nippers Tissue Removed: Fibrin callus Severity: Limited To Skin Breakdown Amount of bleeding with debridement: Mild Bleeding Controlled with: Compression and gauze Patient tolerated procedure: Patient tolerated procedure well - Additional Wound Wound debrided: Left heel shearing Wound Grade/Stage: Stage 2 Type of Debridement: Excisional debridement Anesthesia Used: 5% Lidocaine Gel Depth: Down to and including healthy tissue Percentage of wound debrided: 100 Instrument Used: 7mm curette Tissue Removed: Fibrin Severity: Limited To Skin Breakdown Amount of bleeding with debridement: Mild Bleeding Controlled with: Compression and gauze Patient tolerated procedure: Patient tolerated procedure well Assessment/Plan Active Problems (Last Reviewed 04/17/20 @ 14:05 by Ana Kc) Paraplegia (Chronic) Pressure injury of right buttock, stage 2 (Chronic) Diabetic foot ulcer associated with type 2 diabetes mellitus, with fat layer exposed (Chronic) PVD (peripheral vascular disease) (Chronic) Ulcer of left lower extremity with fat layer exposed (Chronic) Paralysis (Chronic) Assessment: Sacral pressure ulcer Stage 2 - healed. Right buttock fold pressure ulcer stage 2. Ulcer of left lateral leg. Ulcer of left heel. ulcer left gluteal fold Stage 3. DM type 2. Wheelchair bound due to paraplegia. PVD Plan: Adiel's wounds were evaluated and debrided today. At home wound-care instructions: AmLactin cream to the left heel and foot dry spots and to the left gluteal fold area. To the right gluteal fold and wound left lateral leg left heel apply Fibracol to the wound base moistened with tap water then covered with Adaptic and gauze and tape. Follow-up in 2 week
== END 2020-07-19 23:59 ==
LOC: WC 10:45
PROVIDERS: Family Provider Internal Medicine; PCP Internal Medicine; Referring Provider Nurse Practitioner Family; Visit Provider Family Medicine
DX: E11.621 Type 2 diabetes mellitus with foot ulcer (principal); L97.422 Non-pressure chronic ulcer of left heel and midfoot with fat layer exposed; L97.922 Non-pressure chronic ulcer of unspecified part of left lower leg with fat layer exposed; L89.312 Pressure ulcer of right buttock, stage 2; E11.51 Type 2 diabetes mellitus with diabetic peripheral angiopathy without gangrene; G82.20 Paraplegia, unspecified; Z99.3 Dependence on wheelchair
CPT/HCPCS: 11042

== ENCOUNTER 2020-08-28 13:00 | Outpatient (RCR) | payer MEDICARE, SELFPAY ==
[2020-07-20 00:14] VITALS: BP 154/95; PULSE 104; RESP 18; TEMP 35.9
[2020-08-21 13:54] VITALS: BP 142/95; PULSE 102; RESP 18; TEMP 36.1; BMI 43.4
--- NOTE | 2020-08-21 17:55 | PN.PCM_ITS ---
(1) Morbid obesity with BMI of 40.0-44.9, adult Status: Chronic Code(s): E66.01 - Morbid (severe) obesity due to excess ca lories; Z68.41 - Body mass index [BMI]40.0-44.9, adult (2) Chronic ulcer of left heel Status: Inactive Qualifiers: Code(s): L97.429 - Non-pressure chronic ulcer of left heel and midfoot with unspecified severity Comment: healed as of 08/21/20 (3) Lower limb ulcer Status: Chronic Qualifiers: Laterality: left Non-pressure ulcer stage: with fat layer exposed Qualified Code(s): L97.922 - Non-pressure chronic ulcer of unspecified part of left lower leg with fat layer exposed Code(s): L97.909 - Non-pressure chronic ulcer of unspecified part of unspecified lower leg with unspecified severity (4) 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 Type of Wound Date of Service: 08/28/20 Chief Complaint: Ulcer on left posterior heel, left lateral leg and right and left gluteal fold, temi-rectal ulcer and sacral ulcer History of Wound: Adiel is a 34 year old male who is wheelchair bound and paraplegic. [facility] areas he is presenting for evaluation today. He has had his current ulcers for over 2 months. He has been treating the areas with silvercell dressings and recently was placed on an antibiotic by his PCP. The left lower leg ulcers appear to be from pressure. He is unsure of how they developed. His ulcers on his sacrum and right buttock are from pressure and friction from transferring from his wheelchair to chair with his slide board. He also has an area that was from a temi-rectal abscess that is still open and draining. He reports that he is independent in his ADL's but does have a nurse that comes to care for him daily in the morning for a short time daily. He has a history of Type 2 DM, last A1C 7.0% on 12/20/2019. He has been seen at both our wound healing center and [facility] in [place] in the past for previous uclers. He has previously received Apligraf to his ulcers of his lower legs but the last aminah lication was probably 9 months ago. The patient denies any fever, chills, nausea, vomiting, or diarrhea. Denies any signs of infection, including increasing pain, redness, swelling, or drainage from affected area. Progress of Wound: Zak presents today with pressure ulcers on the Left lateral calf, Left heel and the Left ischial area/fold beneath the left buttock. He severino s been dressing the wounds with fibracol. He tells me that most of the time he is in a motorized WC and there is no pressure on the lateral legs. He uses a pillow to elevate the LLE/heel off the bed when he is in bed. He has someone in the morning to help with the wound care. He is sitting in the chair at work for 4 hours a day. He is not using amlactin. - Physical Exam Vital Signs Temp Pulse Resp BP 97.0 F L 102 H 18 142/95 H 08/21/20 13:54 08/21/20 13:54 08/21/20 13:54 08/21/20 13:54 General: Alert, Oriented x3, Cooperative, No apparent distress HEENT: Atraumatic, PERRLA Oral: Dry Mucosa Cardiovascular: Regular Rhythm, Tachycardic Abdomen: Soft, Non Tender, Obese Extremities: Edema - of the feet and ankles, - Skin: - - He has acanthosis nigricans of the axilla and the groin. He tells me that the last HGBA1C was 7. He is diet controlled. Wound Measurements and Assessment WC - Nurse 1 - General Ulcer Measurement Start: 08/21/20 13:54 Freq: Status: Active Protocol: Activity Type Activity Date Activity User E-Sign Co-Sign Detail Recorded Client Recorded Date Recorded By Document 08/21/20 13:54 MW [id number] 08/21/20 14:03 MW 08/21/20 13:54 Wound Center Nurse 1 [Ulcer Assessment] 10. R buttock fold -Combined with other wound No -Current Size (cm) - Length 3.4 -Current Size (cm) - Width 4.0 -Current Size (cm) - Depth 0.5 -Total Square Cm 13.60 -Date of Last Picture (Recall this 08/21/20 field) -Photo Taken Yes -Epithelialization None Present -Tunneling No -Undermining/Tunneling No -Circular Undermining No -Exudate Amt Large -Exudate Type Serosanguineous -Wound Margin Flat & Intact -Granulation Amt Medium (34-66%) -Granulation Quality Red -Slough/Fibrin Yes -Necrosis Amt Medium (34-66%) -Necrotic Tissue Type Adherent Slough -Structure Exposed N/A -Texture (Temi-wound Skin Appearance) Assessed, Localized Edema ,Scarring -Moisture (Temi-wound Skin Appearance Assessed, ) Maceration -Color (Temi-wound Skin Appearance) No Abnormality, Assessed -Temperature (Temi-wound Skin No Abnormality Appearance) (Pt Warm) -Tenderness on Palpation (Temi-wound Yes Skin Appearance) -Ulcer Cleansing Rinsed/ Irrigated with Saline -Foul Odor after Cleansing No -Anesthetic Used 4% Lidocaine Solution #13 LEFT HEEL -Combined with other wound No -Current Size (cm) - Length 0.1 -Current Size (cm) - Width 0.1 -Current Size (cm) - Depth 0.1 -Total Square Cm 0.01 -Date of Last Picture (Recall this 08/21/20 field) -Photo Taken Yes -Epithelialization None Present -Tunneling No -Undermining/Tunneling No -Circular Undermining No -Exudate Amt None Present -Wound Margin Flat & Intact -Granulation Amt None Present (0 %) -Granulation Quality N/A -Slough/Fibrin Yes -Necrosis Amt Small (1-33%) -Necrotic Tissue Type Adherent Slough -Structure Exposed N/A -Texture (Temi-wound Skin Appearance) Assessed, Scarring -Moisture (Teim-wound Skin Appearance Assessed,Dry/ ) Scaly -Color (Temi-wound Skin Appearance) No Abnormality, Assessed -Temperature (Temi-wound Skin No Abnormality Appearance) (Pt Warm) -Tenderness on Palpation (Temi-wound Yes Skin Appearance) -Ulcer Cleansing Rinsed/ Irrigated with Saline -Anesthetic Used 4% Lidocaine Solution 7. L lateral LE -Combined with other wound No -Current Size (cm) - Length 0.7 -Current Size (cm) - Width 0.5 -Current Size (cm) - Depth 0.4 -Total Square Cm 0.35 -Date of Last Picture (Recall this 08/21/20 field) -Photo Taken Yes -Epithelialization None Present -Tunneling No -Undermining/Tunneling No -Circular Undermining No -Exudate Amt Small -Exudate Type Serosanguineous -Wound Margin Flat & Intact -Granulation Amt Large (67-100%) -Granulation Quality Red -Slough/Fibrin Yes -Necrosis Amt Small (1-33%) -Necrotic Tissue Type Adherent Slough -Structure Exposed N/A -Texture (Temi-wound Skin Appearance) Assessed, Localized Edema ,Scarring -Moisture (Temi-wound Skin Appearance Assessed,Dry/ ) Scaly -Color (Temi-wound Skin Appearance) Assessed -Temperature (Temi-wound Skin No Abnormality Appearance) (Pt Warm) -Tenderness on Palpation (Temi-wound No Skin Appearance) -Ulcer Cleansing Rinsed/ Irrigated with Saline -Foul Odor after Cleansing No -Anesthetic Used 4% Lidocaine Solution [Edema Assessment] -Lower Limb Edema Present No The left heel ulcer is healed. There is dry skin and callous with no opening in the skin and no eschar. The R buttock/perineum has an opening in the skin/wound that has been non-healing. Please see the dimensions above. It has irregular margins and the area around the actual wound is white/yellow in coloration and has a verrucous appearance. The base of the actual wound is beefy red and granulating. There is no erythema, no odor and no purulent DC. This is a stage 3 decubitus ulcer. there is no tunneling and no undermining. He also has a wound on the lateral left distal leg that is non-healing. There is an opening in the skin and the rim around the wound is hyperkeratotic. There is no purulent DC, no odor and no temi-wound erythema. He denies F/C/S. He has no feeling in the perineum and no feeling in his legs. There is a healed decubitus ulcer on the left heel. Debridement Note Laterality: Left Type of Debridement: Selective debridement Anesthesia Used: 4% Lidocaine Solution Depth: Down to and including healthy tissue, in the subcutaneous layer Percentage of wound debrided: 50 Instrument Used: 5mm curette Severity: Fat Layer Exposed Amount of bleeding with debridement: Mild Bleeding Controlled with: Pressure Patient tolerated procedure well - Additional Wound Laterality: Right - buttock/perineum Operative Diagnosis: no debridement of this wound was done today. 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 Right gluteal fold/perineum pressure ulcer stage 3 - more likely than not related to sitting for prolonged periods of time. He has a Roho but he sits in the motorized WC for about 4 hours at a time. Ulcer of left lateral leg - I suspect this is due to pressure as well but pt tells me that his motorized WC has nothing for the left leg to lean against. Ulcer of left heel - healed. DM type 2 - diet controlled. 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 At home wound-care instructions: AmLactin cream to the left heel and foot dry spots and to the R gluteal fold area around the wound and not in the wound. To the right gluteal fold and wound left lateral leg left heel apply Fibracol to the wound base moistened with tap water then covered with Adaptic and gauze and tape. Follow- up in 2 week Office Visits / Consults: [id number] OV L3 New
[2020-08-28 13:08] VITALS: BP 153/103; PULSE 111; RESP 18; TEMP 36.1; BMI 43.4
--- NOTE | 2020-08-28 15:36 | PN.PCM_ITS ---
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 Type of Wound Date of Service: 08/28/20 Chief Complaint: Ulcer on left posterior heel, left lateral leg and right and left gluteal fold, temi-rectal ulcer and sacral ulcer History of Wound: Adiel is a 34 year old male who is wheelchair bound and paraplegic. [facility] same areas he is presenting for evaluation today. He has had his current ulcers for over 2 months. He has been treating the areas with silvercell dressings and recently was placed on an antibiotic by his PCP. The left lower leg ulcers appear to be from pressure. He is unsure of how they developed. His ulcers on his sacrum and right buttock are from pressure and friction from transferring from his wheelchair to chair with his slide board. He also has an area that was from a temi-rectal abscess that is still open and draining. He reports that he is independent in his ADL's but does have a nurse that comes to care for him daily in the morning for a short time daily. He has a history of Type 2 DM, last A1C 7.0% on 12/20/2019. He has been seen at both our wound healing center and [facility]'s in [place] in the past for previous uclers. He has previously received Apligraf to his ulcers of his lower legs but the last application was probably 9 months ago. The patient denies any fever, chills, nausea, vomiting, or diarrhea. Denies any signs of infection, including increasing pain, redness, swelling, or drainage from affected area. Progress of Wound: Zak presents to day for a recheck on the progress of a R gluteal fold stage 3 decubitus ulcer and a left Lateral calf stage 2 decubitus ulcer. The wounds are being dressed with Fibracol and an adaptic over the fib racol. He denies F/C/S. No pain. He continues to sit in his motorized WC for long periods of time which impairs wound healing. - Physical Exam Vital Signs Temp Pulse Resp BP 97.0 F L 111 H 18 153/103 H 08/28/20 13:08 08/28/20 13:08 08/28/20 13:08 08/28/20 13:08 Wound Measurements and Assessment WC - Nurse 1 - General Ulcer Measurement Start: 08/21/20 13:54 Freq: Status: Active Protocol: Activity Type Activity Date Activity User E-Sign Co-Sign Detail Recorded Client Recorded Date Recorded By Document 08/28/20 13:08 MW [id number] 08/28/20 13:18 MW 08/28/20 13:08 Wound Center Nurse 1 [Ulcer Assessment] 10. R buttock fold -Combined with other wound No -Current Size (cm) - Length 3.2 -Current Size (cm) - Width 2.4 -Current Size (cm) - Depth 0.4 -Total Square Cm 7.68 -Photo Taken No -Epithelialization None Present -Tunneling No -Undermining/Tunneling No -Circular Undermining No -Exudate Amt Medium -Exudate Type Serosanguineous -Wound Margin Thickened -Granulation Amt Medium (34-66%) -Granulation Quality Red -Slough/Fibrin Yes -Necrosis Amt Medium (34-66%) -Necrotic Tissue Type Adherent Slough -Structure Exposed N/A -Texture (Temi-wound Skin Appearance) Assessed, Scarring -Moisture (Temi-wound Skin Appearance Assessed, ) Maceration -Color (Temi-wound Skin Appearance) No Abnormality, Assessed -Temperature (Temi-wound Skin No Abnormality Appearance) (Pt Warm) -Tenderness on Palpation (Temi-wound Yes Skin Appearance) -Ulcer Cleansing Rinsed/ Irrigated with Saline -Foul Odor after Cleansing No -Anesthetic Used 4% Lidocaine Solution #13 LEFT HEEL -Combined with other wound No -Current Size (cm) - Length 0 -Current Size (cm) - Width 0 -Current Size (cm) - Depth 0 -Total Square Cm 0 -Photo Taken No -Tunneling No -Undermining/Tunneling No -Circular Undermining No 7. L lateral LE -Combined with other wound No -Current Size (cm) - Length 1.0 -Current Size (cm) - Width 0.5 -Current Size (cm) - Depth 0.3 -Total Square Cm 0.50 -Photo Taken No -Epithelialization None Present -Tunneling No -Undermining/Tunneling No -Circular Undermining No -Exudate Amt Medium -Exudate Type Serosanguineous -Wound Margin Flat & Intact -Granulation Amt Medium (34-66%) -Granulation Quality [place] -Slough/Fibrin Yes -Necrosis Amt Medium (34-66%) -Necrotic Tissue Type Adherent Slough -Structure Exposed N/A -Texture (Temi-wound Skin Appearance) Assessed, Scarring -Moisture (Temi-wound Skin Appearance Assessed,Dry/ ) Scaly -Color (Temi-wound Skin Appearance) No Abnormality, Assessed -Temperature (Temi-wound Skin No Abnormality Appearance) (Pt Warm) -Tenderness on Palpation (Temi-wound Yes Skin Appearance) -Ulcer Cleansing Rinsed/ Irrigated with Saline -Foul Odor after Cleansing No -Anesthetic Used 4% Lidocaine Solution [Edema Assessment] -Lower Limb Edema Present No WC - Nurse 2 - General Ulcer CM Notes Start: 08/21/20 13:54 Freq: Status: Active Protocol: Activity Type Activity Date Activity User E-Sign Co-Sign Detail Recorded Client Recorded Date Recorded By Document 08/28/20 13:26 MW [id number] 08/28/20 13:39 MW 08/28/20 13:26 Wound Center Nurse 2 [Procedure/Treatment] 10. R buttock fold -Time 13:26 -Correct Patient Yes -Correct Side, Site, Position Yes -Correct Procedure Yes -Procedure Performed Yes -Type of Procedure Debridement -Clinical Debridement Subcutaneous -Tissue Removed Subcutaneous -Post Debridement (cm) - Length 3.3 -Post Debridement (cm) - Width 2.4 -Post Debridement (cm) - Depth 0.4 -Total Square (Post) (cm) 7.92 -Area of Debridement (cm) - Length 3.3 -Area of Debridement (cm) - Width 2.4 -Total Square (Area) (cm) 7.92 -Tunneling No -Undermining/Tunneling No -Circular Undermining No -Wound/Ulcer Outcome Not Healed -Ulcer Cleansing Rinsed/ Irrigated with Saline -Foul Odor after Cleansing No -Bioengineered Tissue No -Bleeding Controlled with Pressure -Offloading No -Debridement - Subq, 1st 20sq cm Yes #13 LEFT HEEL -Time 13:29 -Correct Patient Yes -Correct Side, Site, Position Yes -Correct Procedure Yes -Procedure Performed No -Post Debridement (cm) - Length 0 -Post Debridement (cm) - Width 0 -Post Debridement (cm) - Depth 0 -Total Square (Post) (cm) 0 -Wound/Ulcer Outcome Healed- Epithelialized 7. L lateral LE -Time 13:32 -Correct Patient Yes -Correct Side, Site, Position Yes -Correct Procedure Yes -Procedure Performed Yes -Type of Procedure Debridement -Clinical Debridement Subcutaneous -Tissue Removed Subcutaneous -Post Debridement (cm) - Length 1.2 -Post Debridement (cm) - Width 0.6 -Post Debridement (cm) - Depth 0.2 -Total Square (Post) (cm) 0.72 -Area of Debridement (cm) - Length 1.2 -Area of Debridement (cm) - Width 0.6 -Total Square (Area) (cm) 0.72 -Tunneling No -Undermining/Tunneling No -Circular Undermining No -Wound/Ulcer Outcome Not Healed -Ulcer Cleansing Rinsed/ Irrigated with Saline -Foul Odor after Cleansing No -Bioengineered Tissue No -Bleeding Controlled with Pressure -Offloading No -Treatment Response Procedure Tolerated Well -Debridement - Subq, 1st 20sq cm Yes [See Physician Procedure note for Specifics] Pain Scale: 0-10 Numeric [Pain] -Is Patient Pain Free? Yes WC - Nurse 3 - General Ulcer D/C NN Start: 08/21/20 13:54 Freq: Status: Active Protocol: Activity Type Activity Date Activity User E-Sign Co-Sign Detail Recorded Client Recorded Date Recorded By Document 08/28/20 13:55 DL [id number] 08/28/20 14:01 DL 08/28/20 13:55 Wound Care Nurse 3 [Wound Dressing] 10. R buttock fold -Ulcer Cleansing Rinsed/ Irrigated with Saline -Foul Odor after Cleansing No -Primary Dressing Applied Fibracol Plus 4x4 -Primary Dressing Covered/Secured Dry Gauze, with Secured with Tape -Fibracol Plus 4x4 1 7. L lateral LE -Ulcer Cleansing Rinsed/ Irrigated with Saline -Foul Odor after Cleansing No -Other Dressing fibricol -Primary Dressing Covered/Secured Dry Gauze, with Secured with Tape [Post Procedure Tolerated] -Treatment Response Procedure Tolerated Well Pain Scale: 0-10 Numeric [Pain] -Is Patient Pain Free? Yes WC - Visit Discharge [Visit Discharge Information] -Discharge Condition Stable -Ambulatory Status Wheelchair -Transportation Private Auto The wound located in the right gluteal fold has decreased in size from 13.6- 7.68. The margin of the wound continues to be very irregular. It appears less deep. The margin is yellow/white in appearance and is somewhat verrucous. It does not really look macerated but, I can not explain the white/yellow discoloration. There is no erythema surrounding the wound and no increased warmth to touch. There is no odor and no purulent discharge observed. There is no tunneling and no undermining. The base appears to be 100% granulating within the wound. The wound on the left lateral calf is approximately the same size as at the last visit. There is a hyperkeratotic rim around the wound. there is no undermining and no tunneling. The base of the wound appears to be pink/red with no slough. There is no odor and no purulent discharge observed. this wound extends into the fat layer. It is a stage 2 decubitus ulcer. the left heel ulcer remains healed. Results of the culture done last week were reviewed. The Proteus mirabilis is resistant to fluoroquinolones and to Bactrim. MRSA in addition to being resistant to oxacillin is also resistant to doxycycline, erythromycin, tetracycline and only intermediately sensitive to Levaquin. Staph hemolyticus is intermediately sensitive to Levaquin and resistant to oxacillin. The E. coli is pansensitive. Zak has already developed resistant to commonly used antibiotics. I feel that this culture reflects colonization and not infection. I do not want to cause increasing resistance by overtreating with antibiotics and therefor will not RX any antibiotics today. I explained this to Zak and he is in agreement with this. He will call the wound center or me if he develops F/C/S, odor or purulent DC Debridement Note Post-Debridement Measurements/Treatment WC - Nurse 2 - General Ulcer CM Notes Start: 08/21/20 13:54 Freq: Status: Active Protocol: Activity Type Activity Date Activity User E-Sign Co-Sign Detail Recorded Client Recorded Date Recorded By Document 08/21/20 14:10 PL [id number] 08/22/20 06:38 PL Document 08/28/20 13:26 MW [id number] 08/28/20 13:39 MW 08/21/20 08/28/20 14:10 13:26 Wound Center Nurse 2 10. R buttock fold -Time 13:26 -Correct Patient Yes -Correct Side, Site, Position Yes -Correct Procedure Yes -Procedure Performed No Yes -Type of Procedure Debridement -Clinical Debridement Subcutaneous -Tissue Removed Subcutaneous -Post Debridement (cm) - Length 3.3 -Post Debridement (cm) - Width 2.4 -Post Debridement (cm) - Depth 0.4 -Total Square (Post) (cm) 7.92 -Area of Debridement (cm) - Length 3.3 -Area of Debridement (cm) - Width 2.4 -Total Square (Area) (cm) 7.92 -Tunneling No -Undermining/Tunneling No -Circular Undermining No -Wound/Ulcer Outcome Not Healed Not Healed -Ulcer Cleansing Rinsed/ Irrigated with Saline -Foul Odor after Cleansing No -Bioengineered Tissue No -Bleeding Controlled with Pressure -Offloading No -Debridement - Subq, 1st 20sq cm Yes #13 LEFT HEEL -Time 13:29 -Correct Patient Yes -Correct Side, Site, Position Yes -Correct Procedure Yes -Procedure Performed No No -Post Debridement (cm) - Length 0 -Post Debridement (cm) - Width 0 -Post Debridement (cm) - Depth 0 -Total Square (Post) (cm) 0 -Wound/Ulcer Outcome Not Healed Healed- Epithelialized 7. L lateral LE -Time 14:15 13:32 -Correct Patient Yes Yes -Correct Side, Site, Position Yes Yes -Correct Procedure Yes Yes -Procedure Performed Yes Yes -Type of Procedure Debridement Debridement -Clinical Debridement Subcutaneous Subcutaneous -Tissue Removed Subcutaneous Subcutaneous -Post Debridement (cm) - Length 0.7 1.2 -Post Debridement (cm) - Width 0.5 0.6 -Post Debridement (cm) - Depth 0.4 0.2 -Total Square (Post) (cm) 0.35 0.72 -Area of Debridement (cm) - Length 0.7 1.2 -Area of Debridement (cm) - Width 0.5 0.6 -Total Square (Area) (cm) 0.35 0.72 -Tunneling No No -Undermining/Tunneling No No -Circular Undermining No No -Wound/Ulcer Outcome Not Healed Not Healed -Ulcer Cleansing Rinsed/ Rinsed/ Irrigated with Irrigated with Saline Saline -Foul Odor after Cleansing No No -Bioengineered Tissue No No -Bleeding Controlled with Pressure -Offloading No -Treatment Response Procedure Tolerated Well -Debridement - Subq, 1st 20sq cm Yes Yes Pain Scale: 0-10 Numeric Is Patient Pain Free? Yes Yes WC - Nurse 3 - General Ulcer D/C NN Start: 08/21/20 13:54 Freq: Status: Active Protocol: Activity Type Activity Date Activity User E-Sign Co-Sign Detail Recorded Client Recorded Date Recorded By Document 08/21/20 14:10 PL [id number] 08/22/20 06:38 PL Document 08/28/20 13:55 DL [id number] 08/28/20 14:01 DL 08/21/20 08/28/20 14:10 13:55 Pain Scale: 0-10 Numeric Is Patient Pain Free? Yes Yes Wound Care Nurse 3 10. R buttock fold -Ulcer Cleansing Rinsed/ Rinsed/ Irrigated with Irrigated with Saline Saline -Foul Odor after Cleansing No No -Primary Dressing Applied Fibracol Plus Fibracol Plus 4x4 4x4 -Primary Dressing Covered/Secured with Dry Gauze, Dry Gauze, Secured with Secured with Tape Tape -Fibracol Plus 4x4 1 1 7. L lateral LE -Ulcer Cleansing Rinsed/ Rinsed/ Irrigated with Irrigated with Saline Saline -Foul Odor after Cleansing No No -Other Dressing Fibracol plus fibricol -Primary Dressing Covered/Secured with Dry Gauze, Dry Gauze, Secured with Secured with Tape Tape Treatment Response Procedure Tolerated Well WC - Visit Discharge Discharge Condition Stable Stable Ambulatory Status Wheelchair Wheelchair Transportation Private Auto Clinical Summary of Care Provided Yes Laterality: Left - lateral leg Wound Grade/Stage: stage 3 Type of Debridement: Selective debridement Anesthesia Used: 4% Lidocaine Solution Depth: Down to and including healthy tissue, in the subcutaneous layer Percentage of wound debrided: 100 Instrument Used: 3mm curette Severity: Fat Layer Exposed Amount of bleeding with debridement: Mild Bleeding Controlled with: Pressure Patient tolerated procedure well The rim of the wound was heavily debrided and the hyperkeratotic skin was removed. The bleeding was controlled with pressure only. - Additional Wound Laterality: Right Type of Debridement: Selective debridement Anesthesia Used: 4% Lidocaine Solution Depth: Down to and including healthy tissue Percentage of wound debrided: 100 Instrument Used: 7mm curette Severity: Fat Layer Exposed Amount of bleeding with debridement: Mild Bleeding Controlled with: Compression and gauze Patient tolerated procedure: Patient tolerated procedure well Operative Diagnosis: stage 3 decubitus ulcer Assessment/Plan Active Problems (Last Reviewed 04/17/20 @ 14:05 by Ana Kc) Morbid obesity with BMI of 40.0-44.9, adult (Chronic) Decubitus ulcer, stage 3 (Acute) R buttock/perineum at the gluteal fold below the buttock. 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 stage 3 R gluteal fold decubitus ulcer. 2. stage 2 decubitus ulcer of the LLE. 3. Left heel ulcer - healed. 4. paraplegia - spends at [facility] 4 hours a day sitting on a motorized WC/scooter. Despite this the R gluteal fold ulcer is liang. 5. DM II - diet controlled. 6. morbid obesity Plan: 1. continue the Amlactin to the left heel. 2. Continue Fibracol to the LLE wound and the R gluteal fold wound but cover with dry dressing and discontinue adaptic. 3. No antibiotics today. Zak will call me or the [facility] if he develops fever, chills or sweats. 4. RTC in 2 weeks for a recheck. 5. Try to limit seesions in the WC to no more that 1 hour at a time to decrease pressure on the wounds. 6. We discussed trying to get the HGBA1C to less than 7. He tells me that he does not want to take insulin. He was on Metformin in the past and had diarrhea. He does not know what dose he was on. He is eating only 1 meal a day and I told him this is not acceptable. He needs to increase protein intake so that the wounds can heal. Office Visits / Consults: [id number] L2 Est
== END 2020-09-16 23:59 ==
LOC: WC 13:00
PROVIDERS: Family Provider Internal Medicine; PCP Internal Medicine; Referring Provider Nurse Practitioner Family; Visit Provider Internal Medicine
DX: L89.313 Pressure ulcer of right buttock, stage 3 (principal); L89.893 Pressure ulcer of other site, stage 3; L89.892 Pressure ulcer of other site, stage 2; L83 Acanthosis nigricans; R03.0 Elevated blood-pressure reading, without diagnosis of hypertension; G82.20 Paraplegia, unspecified; Z99.3 Dependence on wheelchair; E66.01 Morbid (severe) obesity due to excess calories; Z68.41 Body mass index [BMI] 40.0-44.9, adult; Z79.899 Other long term (current) drug therapy
CPT/HCPCS: 11042; 87070; 87077; 87186; 87205; 99213; G0463

== ENCOUNTER 2020-10-02 13:45 | Outpatient (RCR) | payer MEDICARE, SELFPAY ==
[2020-09-17 00:05] VITALS: BP 153/103; PULSE 111; RESP 18; TEMP 36.1
[2020-09-18 13:30] VITALS: BP 150/81; PULSE 105; RESP 20; TEMP 36.1; BMI 43.4
--- NOTE | 2020-09-21 12:30 | PCM.WC.PN ---
Type of Wound Date of Service: 09/26/20 Chief Complaint: Ulcer on left posterior heel, left lateral leg and right and left gluteal fold, temi-rectal ulcer and sacral ulcer History of Wound: Adiel is a 34 year old male who is wheelchair bound and paraplegic. [facility] areas he is presenting for evaluation today. He has had his current ulcers for over 2 months. He has been treating the areas with silvercell dressings and recently was placed on an antibiotic by his PCP. The left lower leg ulcers appear to be from pressure. He is unsure of how they developed. His ulcers on his sacrum and right buttock are from pressure and friction from transferring from his wheelchair to chair with his slide board. He also has an area that was from a temi-rectal abscess that is still open and draining. He reports that he is independent in his ADL's but does have a nurse that comes to care for him daily in the morning for a short time daily. He has a history of Type 2 DM, last A1C 7.0% on 12/20/2019. He has been seen at both our wound healing center and [facility] in [place] in the past for previous uclers. He has previously received Apligraf to his ulcers of his lower legs but the last application was probably 9 months ago. The patient denies any fever, chills, nausea, vomiting, or diarrhea. Denies any signs of infection, including increasing pain, redness, swelling, or drainage from affected area. Progress of Wound: Zak presents to day for a recheck on the progress of a R gluteal fold stage 3 decubitus ulcer and a left Lateral calf stage 2 decubitus ulcer. The wounds are being dressed with Fibracol and an adaptic over the fibracol. He denies F/C/S. No pain. He continues to sit in his motorized WC for long periods of time which impairs wound healing. - Physical Exam Vital Signs Temp Pulse Resp BP 97 F L 105 H 20 H 150/81 H 09/18/20 13:30 09/18/20 13:30 09/18/20 13:30 09/18/20 13:30 Wound Measurements and Assessment WC - Nurse 1 - General Ulcer Measurement Start: 09/18/20 13:30 Freq: Status: Active Protocol: Activity Type Activity Date Activity User E-Sign Co-Sign Detail Recorded Client Recorded Date Recorded By Document 09/18/20 13:30 DL [id number] 09/18/20 13:42 DL 09/18/20 13:30 Wound Center Nurse 1 [Ulcer Assessment] 10. R buttock fold -Combined with other wound No -Current Size (cm) - Length 3.3 -Current Size (cm) - Width 3.3 -Current Size (cm) - Depth 1 -Total Square Cm 10.89 -Photo Taken No -Epithelialization None Present -Tunneling No -Undermining/Tunneling No -Circular Undermining No -Exudate Amt Medium -Exudate Type Serosanguineous -Wound Margin Distinct, Outline Attached -Granulation Amt Large (67-100%) -Granulation Quality Red -Slough/Fibrin Yes -Necrosis Amt Small (1-33%) -Necrotic Tissue Type Adherent Slough -Texture (Temi-wound Skin Appearance) Assessed, Scarring -Moisture (Temi-wound Skin Appearance Assessed ) -Color (Temi-wound Skin Appearance) Assessed, Erythema -Temperature (Temi-wound Skin No Abnormality Appearance) (Pt Warm) -Tenderness on Palpation (Temi-wound No Skin Appearance) -Ulcer Cleansing Rinsed/ Irrigated with Saline -Foul Odor after Cleansing No -Anesthetic Used 4% Lidocaine Solution 7. L lateral LE -Combined with other wound No -Current Size (cm) - Length 1.8 -Current Size (cm) - Width 0.6 -Current Size (cm) - Depth 0.1 -Total Square Cm 1.08 -Photo Taken No -Epithelialization None Present -Tunneling No -Undermining/Tunneling No -Circular Undermining No -Exudate Amt Small -Exudate Type Serosanguineous -Wound Margin Distinct, Outline Attached -Granulation Amt Medium (34-66%) -Granulation Quality Red -Slough/Fibrin Yes -Necrosis Amt Medium (34-66%) -Necrotic Tissue Type Adherent Slough -Texture (Temi-wound Skin Appearance) Assessed, Scarring -Moisture (Temi-wound Skin Appearance Assessed ) -Color (Temi-wound Skin Appearance) Assessed -Temperature (Temi-wound Skin No Abnormality Appearance) (Pt Warm) -Tenderness on Palpation (Temi-wound No Skin Appearance) -Ulcer Cleansing Rinsed/ Irrigated with Saline -Foul Odor after Cleansing No -Anesthetic Used 4% Lidocaine Solution WC - Nurse 2 - General Ulcer CM Notes Start: 09/18/20 13:30 Freq: Status: Active Protocol: Activity Type Activity Date Activity User E-Sign Co-Sign Detail Recorded Client Recorded Date Recorded By Document 09/18/20 14:19 MW [id number] 09/18/20 14:32 MW 09/18/20 14:19 Wound Center Nurse 2 [Procedure/Treatment] 10. R buttock fold -Time 14:19 -Correct Patient Yes -Correct Side, Site, Position Yes -Correct Procedure Yes -Procedure Performed Yes -Type of Procedure Debridement -Clinical Debridement Subcutaneous -Tissue Removed Subcutaneous -Post Debridement (cm) - Length 3.5 -Post Debridement (cm) - Width 5.5 -Post Debridement (cm) - Depth 0.2 -Total Square (Post) (cm) 19.25 -Area of Debridement (cm) - Length 3.5 -Area of Debridement (cm) - Width 5.5 -Total Square (Area) (cm) 19.25 -Tunneling No -Undermining/Tunneling No -Circular Undermining No -Wound/Ulcer Outcome Not Healed -Ulcer Cleansing Rinsed/ Irrigated with Saline -Foul Odor after Cleansing No -Bioengineered Tissue No -Bleeding Controlled with Pressure,Silver Nitrate -Offloading No -Treatment Response Procedure Tolerated Well -Debridement - Subq, 1st 20sq cm Yes 7. L lateral LE -Time 14:19 -Correct Patient Yes -Correct Side, Site, Position Yes -Correct Procedure Yes -Procedure Performed Yes -Type of Procedure Debridement -Clinical Debridement Subcutaneous -Tissue Removed Subcutaneous -Post Debridement (cm) - Length 4.0 -Post Debridement (cm) - Width 1.4 -Post Debridement (cm) - Depth 0.1 -Total Square (Post) (cm) 5.60 -Area of Debridement (cm) - Length 4.0 -Area of Debridement (cm) - Width 1.4 -Total Square (Area) (cm) 5.60 -Tunneling No -Undermining/Tunneling No -Circular Undermining No -Wound/Ulcer Outcome Not Healed -Ulcer Cleansing Rinsed/ Irrigated with Saline -Foul Odor after Cleansing No -Bioengineered Tissue No -Bleeding Controlled with Pressure -Offloading No -Treatment Response Procedure Tolerated Well -Debridement - Subq, 1st 20sq cm No [See Physician Procedure note for Specifics] Pain Scale: 0-10 Numeric [Pain] -Is Patient Pain Free? Yes WC - Nurse 3 - General Ulcer D/C NN Start: 09/18/20 13:30 Freq: Status: Active Protocol: Activity Type Activity Date Activity User E-Sign Co-Sign Detail Recorded Client Recorded Date Recorded By Document 09/18/20 14:52 BMF [id number] 09/18/20 14:53 BMF 09/18/20 14:52 Wound Care Nurse 3 [Wound Dressing] 10. R buttock fold -Ulcer Cleansing Rinsed/ Irrigated with Saline -Foul Odor after Cleansing No -Primary Dressing Applied Fibracol Plus 4x4 -Primary Dressing Covered/Secured Secured with with Tape,Other -Other Covering ABD -Fibracol Plus 4x4 1 7. L lateral LE -Ulcer Cleansing Rinsed/ Irrigated with Saline -Foul Odor after Cleansing No -Primary Dressing Applied Fibracol Plus 4x4 -Primary Dressing Covered/Secured Dry Gauze, with Secured with Tape -Fibracol Plus 4x4 0 [Post Procedure Tolerated] -Treatment Response Procedure Tolerated Well Pain Scale: 0-10 Numeric [Pain] -Is Patient Pain Free? Yes WC - Visit Discharge [Visit Discharge Information] -Discharge Condition Stable -Ambulatory Status Wheelchair -Transportation Private Auto Neither wound has purulent DC, odor, temi-wound erythema or increased warmth to touch in the area around the wounds. The LE is actually cool to the touch BL. There is considerable yellow,thick slough/scale around the temi-anal wound and some in the wound. The leg wound has some old dry crust at the wound margin and some yellow slough in the wound. both wounds were debrided. He has still bee spending a lot of time sitting and he admits that he only used the Lacydrin 2 days since I last saw him Debridement Note Post-Debridement Measurements/Treatment WC - Nurse 2 - General Ulcer CM Notes Start: 09/18/20 13:30 Freq: Status: Active Protocol: Activity Type Activity Date Activity User E-Sign Co-Sign Detail Recorded Client Recorded Date Recorded By Document 09/18/20 14:19 MW [id number] 09/18/20 14:32 MW 09/18/20 14:19 Wound Center Nurse 2 10. R buttock fold -Time 14:19 -Correct Patient Yes -Correct Side, Site, Position Yes -Correct Procedure Yes -Procedure Performed Yes -Type of Procedure Debridement -Clinical Debridement Subcutaneous -Tissue Removed Subcutaneous -Post Debridement (cm) - Length 3.5 -Post Debridement (cm) - Width 5.5 -Post Debridement (cm) - Depth 0.2 -Total Square (Post) (cm) 19.25 -Area of Debridement (cm) - Length 3.5 -Area of Debridement (cm) - Width 5.5 -Total Square (Area) (cm) 19.25 -Tunneling No -Undermining/Tunneling No -Circular Undermining No -Wound/Ulcer Outcome Not Healed -Ulcer Cleansing Rinsed/ Irrigated with Saline -Foul Odor after Cleansing No -Bioengineered Tissue No -Bleeding Controlled with Pressure,Silver Nitrate -Offloading No -Treatment Response Procedure Tolerated Well -Debridement - Subq, 1st 20sq cm Yes 7. L lateral LE -Time 14:19 -Correct Patient Yes -Correct Side, Site, Position Yes -Correct Procedure Yes -Procedure Performed Yes -Type of Procedure Debridement -Clinical Debridement Subcutaneous -Tissue Removed Subcutaneous -Post Debridement (cm) - Length 4.0 -Post Debridement (cm) - Width 1.4 -Post Debridement (cm) - Depth 0.1 -Total Square (Post) (cm) 5.60 -Area of Debridement (cm) - Length 4.0 -Area of Debridement (cm) - Width 1.4 -Total Square (Area) (cm) 5.60 -Tunneling No -Undermining/Tunneling No -Circular Undermining No -Wound/Ulcer Outcome Not Healed -Ulcer Cleansing Rinsed/ Irrigated with Saline -Foul Odor after Cleansing No -Bioengineered Tissue No -Bleeding Controlled with Pressure -Offloading No -Treatment Response Procedure Tolerated Well -Debridement - Subq, 1st 20sq cm No Pain Scale: 0-10 Numeric Is Patient Pain Free? Yes WC - Nurse 3 - General Ulcer D/C NN Start: 09/18/20 13:30 Freq: Status: Active Protocol: Activity Type Activity Date Activity User E-Sign Co-Sign Detail Recorded Client Recorded Date Recorded By Document 09/18/20 14:52 [facility] [id number] 09/18/20 14:53 [facility] 09/18/20 14:52 Wound Care Nurse 3 10. R buttock fold -Ulcer Cleansing Rinsed/ Irrigated with Saline -Foul Odor after Cleansing No -Primary Dressing Applied Fibracol Plus 4x4 -Primary Dressing Covered/Secured with Secured with Tape,Other -Other Covering ABD -Fibracol Plus 4x4 1 7. L lateral LE -Ulcer Cleansing Rinsed/ Irrigated with Saline -Foul Odor after Cleansing No -Primary Dressing Applied Fibracol Plus 4x4 -Primary Dressing Covered/Secured with Dry Gauze, Secured with Tape -Fibracol Plus 4x4 0 Treatment Response Procedure Tolerated Well Pain Scale: 0-10 Numeric Is Patient Pain Free? Yes WC - Visit Discharge Discharge Condition Stable Ambulatory Status Wheelchair Transportation Private Auto Wound debrided: R lateral arora Laterality: Right Anesthesia Used: 4% Lidocaine Solution Depth: in the subcutaneous layer Percentage of wound debrided: 100 Instrument Used: 5mm curette Severity: Fat Layer Exposed Amount of bleeding with debridement: Mild Bleeding Controlled with: Pressure Patient tolerated procedure well - Additional Wound Wound debrided: anal cleft Wound Grade/Stage: stage 2 Type of Debridement: Excisional debridement Anesthesia Used: 4% Lidocaine Solution Depth: Down to and including healthy tissue, in the subcutaneous layer Percentage of wound debrided: 100 Instrument Used: 5mm curette, #15 blade, Forceps Severity: Fat Layer Exposed Amount of bleeding with debridement: Moderate Bleeding Controlled with: Pressure, Silver Nitrate Patient tolerated procedure: Patient tolerated procedure well Assessment/Plan Assessment: 1. stage 3 R gluteal fold decubitus ulcer -. 2. stage 2 decubitus ulcer of the LLE. 3. Left heel ulcer - healed. 4. paraplegia - spends at least 4 hours a day sitting on a motorized WC/scooter. Despite this the R gluteal fold ulcer is liang. 5. DM II - diet controlled. 6. morbid obesity Plan: 1. continue the LacHydrin to the left heel and also around the anal wound.....not in the wound. 2. Continue Fibracol to the LLE wound and the R gluteal fold wound but cover with dry dressing and discontinue adaptic. 3. No antibiotics today. Zak will call me or the [facility] if he develops fever, chills or sweats. 4. RTC in 1 weeks for a recheck. 5. Try to limit sessions in the WC to no more that 1 hour at a time to decrease pressure on the wounds. 6. We discussed trying to get the HGBA1C to less than 7. He tells me that he does not want to take insulin. He was on Metformin in the past and had diarrhea. He does not know what dose he was on. He is eating only 1 meal a day and I told him this is not acceptable. He needs to increase protein intake so that the wounds can heal. Office Visits / Consults: [id number] Est
[2020-09-25 13:51] VITALS: BP 147/106; PULSE 113; RESP 16; TEMP 36.9; BMI 43.4
--- NOTE | 2020-09-26 10:13 | PN.PCM_ITS ---
Type of Wound Date of Service: 09/26/20 Chief Complaint: Ulcer on left posterior heel, left lateral leg and right and left gluteal fold, temi-rectal ulcer and sacral ulcer History of Wound: Adiel is a 34 year old male who is wheelchair bound and paraplegic. [facility] areas he is presenting for evaluation today. He has had his current ulcers for over 2 months. He has been treating the areas with silvercell dressings and recently was placed on an antibiotic by his PCP. The left lower leg ulcers appear to be from pressure. He is unsure of how they developed. His ulcers on his sacrum and right buttock are from pressure and friction from transferring from his wheelchair to chair with his slide board. He also has an area that was from a temi-rectal abscess that is still open and draining. He reports that he is independent in his ADL's but does have a nurse that comes to care for him daily in the morning for a short time daily. He has a history of Type 2 DM, last A1C 7.0% on 12/20/2019. He has been seen at both our wound healing center and [facility] in [place] in the past for previous uclers. He has previously received Apligraf to his ulcers of his lower legs but the last application was probably 9 months ago. The patient denies any fever, chills, nausea, vomiting, or diarrhea. Denies any signs of infection, including increasing pain, redness, swelling, or drainage from affected area. Progress of Wound: Zak presents to day for a recheck on the progress of a R gluteal fold stage 3 decubitus ulcer and a left Lateral calf stage 2 decubitus ulcer. The wounds are being dressed with Fibracol and a dry dressing over the fibracol. He denies F/C/S. No pain. He continues to sit in his motorized WC for long periods of time which impairs wound healing despite admonishment that the wound may not heal if he continues to have pressure on the wound for a large part of the day. He is not using the Lac-Hydrin BID as instructed....he has only used it 2 days since the last time I saw him. - Physical Exam Vital Signs Temp Pulse Resp BP 98.4 F 113 H 16 147/106 H 09/25/20 13:51 09/25/20 13:51 09/25/20 13:51 09/25/20 13:51 Wound Measurements and Assessment WC - Nurse 1 - General Ulcer Measurement Start: 09/18/20 13:30 Freq: Status: Active Protocol: Activity Type Activity Date Activity User E-Sign Co-Sign Detail Recorded Client Recorded Date Recorded By Document 09/25/20 13:51 [facility] [id number] 09/25/20 14:01 [facility] 09/25/20 13:51 Wound Center Nurse 1 [Ulcer Assessment] 10. R buttock fold -Current Size (cm) - Length 3 -Current Size (cm) - Width 0.9 -Current Size (cm) - Depth 0.5 -Total Square Cm 2.7 -Exudate Amt Medium -Exudate Type Serosanguineous -Wound Margin Distinct, Outline Attached -Granulation Amt Medium (34-66%) -Granulation Quality Red -Slough/Fibrin Yes -Necrosis Amt Medium (34-66%) -Texture (Temi-wound Skin Appearance) No Abnormality -Moisture (Temi-wound Skin Appearance No Abnormality ) -Color (Temi-wound Skin Appearance) No Abnormality -Temperature (Temi-wound Skin No Abnormality Appearance) (Pt Warm) -Tenderness on Palpation (Temi-wound No Skin Appearance) -Ulcer Cleansing Rinsed/ Irrigated with Saline -Foul Odor after Cleansing No 7. L lateral LE -Current Size (cm) - Length 2.1 -Current Size (cm) - Width 0.3 -Current Size (cm) - Depth 0.2 -Total Square Cm 0.63 -Exudate Amt Medium -Exudate Type Serosanguineous -Wound Margin Distinct, Outline Attached -Granulation Amt Medium (34-66%) -Slough/Fibrin Yes -Necrosis Amt Small (1-33%) -Texture (Temi-wound Skin Appearance) No Abnormality -Moisture (Temi-wound Skin Appearance No Abnormality ) -Color (Temi-wound Skin Appearance) No Abnormality -Temperature (Temi-wound Skin No Abnormality Appearance) (Pt Warm) -Tenderness on Palpation (Temi-wound No Skin Appearance) -Ulcer Cleansing Rinsed/ Irrigated with Saline -Foul Odor after Cleansing No WC - Nurse 2 - General Ulcer CM Notes Start: 09/18/20 13:30 Freq: Status: Active Protocol: Activity Type Activity Date Activity User E-Sign Co-Sign Detail Recorded Client Recorded Date Recorded By Document 09/25/20 14:06 MW [id number] 09/25/20 14:25 MW 09/25/20 14:06 Wound Center Nurse 2 [Procedure/Treatment] 10. R buttock fold -Time 14:15 -Correct Patient Yes -Correct Side, Site, Position Yes -Correct Procedure Yes -Procedure Performed Yes -Type of Procedure Debridement -Clinical Debridement Subcutaneous -Tissue Removed Subcutaneous -Post Debridement (cm) - Length 2.8 -Post Debridement (cm) - Width 3.0 -Post Debridement (cm) - Depth 0.2 -Total Square (Post) (cm) 8.40 -Area of Debridement (cm) - Length 2.8 -Area of Debridement (cm) - Width 3.0 -Total Square (Area) (cm) 8.40 -Tunneling No -Undermining/Tunneling No -Circular Undermining No -Wound/Ulcer Outcome Not Healed -Ulcer Cleansing Rinsed/ Irrigated with Saline -Foul Odor after Cleansing No -Bioengineered Tissue No -Bleeding Controlled with Pressure -Offloading No -Debridement - Subq, 1st 20sq cm Yes 7. L lateral LE -Time 14:23 -Correct Patient Yes -Correct Side, Site, Position Yes -Correct Procedure Yes -Procedure Performed Yes -Type of Procedure Debridement -Clinical Debridement Subcutaneous -Tissue Removed Subcutaneous -Post Debridement (cm) - Length 1.4 -Post Debridement (cm) - Width 1.0 -Post Debridement (cm) - Depth 0.1 -Total Square (Post) (cm) 1.40 -Area of Debridement (cm) - Length 1.4 -Area of Debridement (cm) - Width 1.0 -Total Square (Area) (cm) 1.40 -Tunneling No -Undermining/Tunneling No -Circular Undermining No -Wound/Ulcer Outcome Not Healed -Ulcer Cleansing Rinsed/ Irrigated with Saline -Foul Odor after Cleansing No -Bioengineered Tissue No -Bleeding Controlled with Pressure -Offloading No -Treatment Response Procedure Tolerated Well -Debridement - Subq, 1st 20sq cm No [See Physician Procedure note for Specifics] Pain Scale: 0-10 Numeric [Pain] -Is Patient Pain Free? Yes WC - Nurse 3 - General Ulcer D/C NN Start: 09/18/20 13:30 Freq: Status: Active Protocol: Activity Type Activity Date Activity User E-Sign Co-Sign Detail Recorded Client Recorded Date Recorded By Document 09/25/20 14:28 MS [id number] 09/25/20 14:30 MS 09/25/20 14:28 Wound Care Nurse 3 [Wound Dressing] 10. R buttock fold -Ulcer Cleansing Rinsed/ Irrigated with Saline -Foul Odor after Cleansing No -Primary Dressing Applied Fibracol Plus 4x4 -Other Dressing abd -Primary Dressing Covered/Secured Secured with with Tape -Fibracol Plus 4x4 0 7. L lateral LE -Ulcer Cleansing Rinsed/ Irrigated with Saline -Primary Dressing Applied Fibracol Plus 4x4 -Primary Dressing Covered/Secured Dry Gauze, with Secured with Tape -Fibracol Plus 4x4 1 Pain Scale: 0-10 Numeric [Pain] -Is Patient Pain Free? Yes WC - Visit Discharge [Visit Discharge Information] -Discharge Condition Stable -Ambulatory Status Wheelchair -Medication Reconcilliation completed No & provided to patient/care provider -Clinical Summary of Care Provided Yes The anal wound has significantly decreased in size since the last visit. The tissue around the wound looks healthier and the yellow scale/slough is much less since it was debrided at the last visit. There is no purulent DC and no odor. The base of the actual wound is 100% granulating. There is still some Yellow, thick scale around the wound margin. The leg wound is doing very well. There has been increased epithelialization since the last visit and there is no slough present in the base. The base is 100% granulating. The left heel is still closed although the callous is cracked and he is not using the Lac-Hydrin as instructed. I am fearful it will get infected and breakdown again if he does not get more diligent with caring for it. Debridement Note Post-Debridement Measurements/Treatment WC - Nurse 2 - General Ulcer CM Notes Start: 09/18/20 13:30 Freq: Status: Active Protocol: Activity Type Activity Date Activity User E-Sign Co-Sign Detail Recorded Client Recorded Date Recorded By Document 09/18/20 14:19 MW [id number] 09/18/20 14:32 MW Document 09/25/20 14:06 MW [id number] 09/25/20 14:25 MW 09/18/20 09/25/20 14:19 14:06 Wound Center Nurse 2 10. R buttock fold -Time 14:19 14:15 -Correct Patient Yes Yes -Correct Side, Site, Position Yes Yes -Correct Procedure Yes Yes -Procedure Performed Yes Yes -Type of Procedure Debridement Debridement -Clinical Debridement Subcutaneous Subcutaneous -Tissue Removed Subcutaneous Subcutaneous -Post Debridement (cm) - Length 3.5 2.8 -Post Debridement (cm) - Width 5.5 3.0 -Post Debridement (cm) - Depth 0.2 0.2 -Total Square (Post) (cm) 19.25 8.40 -Area of Debridement (cm) - Length 3.5 2.8 -Area of Debridement (cm) - Width 5.5 3.0 -Total Square (Area) (cm) 19.25 8.40 -Tunneling No No -Undermining/Tunneling No No -Circular Undermining No No -Wound/Ulcer Outcome Not Healed Not Healed -Ulcer Cleansing Rinsed/ Rinsed/ Irrigated with Irrigated with Saline Saline -Foul Odor after Cleansing No No -Bioengineered Tissue No No -Bleeding Controlled with Pressure,Silver Pressure Nitrate -Offloading No No -Treatment Response Procedure Tolerated Well -Debridement - Subq, 1st 20sq cm Yes Yes 7. L lateral LE -Time 14:19 14:23 -Correct Patient Yes Yes -Correct Side, Site, Position Yes Yes -Correct Procedure Yes Yes -Procedure Performed Yes Yes -Type of Procedure Debridement Debridement -Clinical Debridement Subcutaneous Subcutaneous -Tissue Removed Subcutaneous Subcutaneous -Post Debridement (cm) - Length 4.0 1.4 -Post Debridement (cm) - Width 1.4 1.0 -Post Debridement (cm) - Depth 0.1 0.1 -Total Square (Post) (cm) 5.60 1.40 -Area of Debridement (cm) - Length 4.0 1.4 -Area of Debridement (cm) - Width 1.4 1.0 -Total Square (Area) (cm) 5.60 1.40 -Tunneling No No -Undermining/Tunneling No No -Circular Undermining No No -Wound/Ulcer Outcome Not Healed Not Healed -Ulcer Cleansing Rinsed/ Rinsed/ Irrigated with Irrigated with Saline Saline -Foul Odor after Cleansing No No -Bioengineered Tissue No No -Bleeding Controlled with Pressure Pressure -Offloading No No -Treatment Response Procedure Procedure Tolerated Well Tolerated Well -Debridement - Subq, 1st 20sq cm No No Pain Scale: 0-10 Numeric Is Patient Pain Free? Yes Yes - Nurse 3 - General Ulcer D/C NN Start: 09/18/20 13:30 Freq: Status: Active Protocol: Activity Type Activity Date Activity User E-Sign Co-Sign Detail Recorded Client Recorded Date Recorded By Document 09/18/20 14:52 [facility] [id number] 09/18/20 14:53 [facility] Document 09/25/20 14:28 MS [id number] 09/25/20 14:30 MS 09/18/20 09/25/20 14:52 14:28 Wound Care Nurse 3 10. R buttock fold -Ulcer Cleansing Rinsed/ Rinsed/ Irrigated with Irrigated with Saline Saline -Foul Odor after Cleansing No No -Primary Dressing Applied Fibracol Plus Fibracol Plus 4x4 4x4 -Other Dressing abd -Primary Dressing Covered/Secured with Secured with Secured with Tape,Other Tape -Other Covering ABD -Fibracol Plus 4x4 1 0 7. L lateral LE -Ulcer Cleansing Rinsed/ Rinsed/ Irrigated with Irrigated with Saline Saline -Foul Odor after Cleansing No -Primary Dressing Applied Fibracol Plus Fibracol Plus 4x4 4x4 -Primary Dressing Covered/Secured with Dry Gauze, Dry Gauze, Secured with Secured with Tape Tape -Fibracol Plus 4x4 0 1 Treatment Response Procedure Tolerated Well Pain Scale: 0-10 Numeric Is Patient Pain Free? Yes Yes - Visit Discharge Discharge Condition Stable Stable Ambulatory Status Wheelchair Wheelchair Transportation Private Auto Medication Reconcilliation completed & No provided to patient/care provider Clinical Summary of Care Provided Yes Wound debrided: anal cleft Type of Debridement: Excisional debridement Anesthesia Used: 4% Lidocaine Solution Depth: Down to and including healthy tissue Percentage of wound debrided: 50 Instrument Used: #15 blade, - - My ability to debride the wound was impacted by the absence of Forceps which I was told have not been available this week despite numerous phone calls to materials management? Amount of bleeding with debridement: Mild Bleeding Controlled with: Pressure Patient tolerated procedure well Assessment/Plan Assessment: 1. stage 3 R gluteal fold decubitus ulcer - this is doing very well and it is liang and healing from the bottm up. There is additional scale to be debrided from the area around the wound but, there are no forceps available and this made the debridement today less than adequate. 2. stage 2 decubitus ulcer of the LLE - nearly healed. 3. Left heel ulcer - healed but he is not using the Lac-hydrin as instructed and the callous has cracks in it and this puts him at risk for infection. 4. paraplegia - spends at least 4 hours a day sitting on a motorized WC/scooter. Despite this the R gluteal fold ulcer is liang. 5. DM II - diet controlled. 6. morbid obesity Plan: 1. continue the LacHydrin to the left heel and also around the anal wound.....not in the wound. 2. Continue Fibracol to the LLE wound and the R gluteal fold wound but cover with dry dressing and discontinue adaptic. 3. No antibiotics today. Zak will call me or the [facility] if he develops fever, chills or sweats. 4. RTC in 1 week for a recheck. 5. Limit sessions in the WC to no more that 1 hour at a time to decrease pressure on the wounds. 6. I placed a call to the director about the forceps and hopefully this issue will be resolved before I see Zak next week. Office Visits / Consults: [id number] OV L2 Est
[2020-10-02 13:54] VITALS: BP 155/101; PULSE 111; TEMP 36.1; BMI 43.4
--- NOTE | 2020-10-02 14:37 | PN.PCM_ITS ---
(1) Tachycardia Status: Chronic Code(s): R00.0 - Tachycardia, unspecified (2) Cellulitis of left lower extremity Status: Resolved Code(s): L03.116 - Cellulitis of left lower limb (3) Decubitus ulcer, stage 3 Status: Acute Qualifiers: Pressure injury location: contiguous region involving back, buttock, and hip Code(s): L89.93 - Pressure ulcer of unspecified site, stage 3 Comment: R buttock/perineum at the gluteal fold below the buttock. (4) Sepsis Status: Resolved Code(s): A41.9 - Sepsis, unspecified organism (5) Septic shock Status: Resolved Code(s): A41.9 - Sepsis, unspecified organism; R65.21 - Severe sepsis with septic shock (6) Severe sepsis Status: Resolved Code(s): A41.9 - Sepsis, unspecified organism; R65.20 - Severe sepsis without septic shock (7) Cavernous hemangioma Status: Chronic Code(s): D18.00 - Hemangioma unspecified site Comment: 10/2009 - spine....resulted in paraplegia (8) Diabetic foot ulcer associated with type 2 diabetes mellitus, with fat layer exposed Status: Resolved Qualifiers: Diabetic foot ulcer location: heel Code(s): E11.621 - Type 2 diabetes mellitus with foot ulcer; L97.502 - Non- pressure chronic ulcer of other part of unspecified foot with fat layer exposed (9) Diabetic ulcer of ankle associated with type 2 diabetes mellitus, with fat layer exposed Status: Resolved Code(s): E11.622 - Type 2 diabetes mellitus with other skin ulcer; L97.302 - Non-pressure chronic ulcer of unspecified ankle with fat layer exposed (10) Diabetic ulcer of lower leg associated with type 2 diabetes mellitus, with fat layer exposed Status: Chronic Code(s): E11.622 - Type 2 diabetes mellitus with other skin ulcer; L97.902 - Non-pressure chronic ulcer of unspecified part of unspecified lower leg with fat layer exposed Comment: left lateral arora (11) Diarrhea Status: Chronic Code(s): R19.7 - Diarrhea, unspecified (12) Gluteal abscess Status: Resolved Code(s): L02.31 - Cutaneous abscess of buttock (13) High blood pressure Status: Chronic Qualifiers: Hypertension type: essential hypertension Qualified Code(s): I10 - Essential (primary) hypertension Code(s): I10 - Essential (primary) hypertension (14) Hypersomnolence Status: Chronic Code(s): G47.10 - Hypersomnia, unspecified Comment: more likely than not due to untreated EDWIGE (15) Left leg cellulitis Status: Resolved Code(s): L03.116 - Cellulitis of left lower limb (16) Morbid obesity with BMI of 40.0-44.9, adult Status: Chronic Code(s): E66.01 - Morbid (severe) obesity due to excess calories; Z68.41 - Body mass index [BMI]40.0-44.9, adult (17) EDWIGE (obstructive sleep apnea) Status: Chronic Code(s): G47.33 - Obstructive sleep apnea (adult) (pediatric) Comment: Overall AHI 102 events per hour - not on treatment (18) Obesity Status: Chronic Qualifiers: Obesity type: unspecified obesity type Obesity classification: adult class 3 (BMI >= 40) Serious obesity comorbidity presence: with serious comorbidity Body mass index: BMI 40.0-44.9 Qualified Code(s): E66.01 - Morbid (severe) obesity due to excess calories; Z68.41 - Body mass index [BMI]40.0-44.9, adult Code(s): E66.9 - Obesity, unspecified (19) PVD (peripheral vascular disease) Status: Chronic Code(s): I73.9 - Peripheral vascular disease, unspecified (20) Paraplegia Status: Chronic Code(s): G82.20 - Paraplegia, unspecified (21) 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 Comment: due to cavernous hemangioma (22) Pressure injury of right buttock, stage 2 Status: Chronic Code(s): L89.312 - Pressure ulcer of right buttock, stage 2 (23) Pressure ulcer of sacral region, stage 2 Status: Resolved Code(s): L89.152 - Pressure ulcer of sacral region, stage 2 (24) Sebaceous cyst Status: Chronic Code(s): L72.3 - Sebaceous cyst Comment: of right hindu involving very lateral eyebrow (25) Swelling, mass, or lump on face Status: Chronic Code(s): R22.0 - Localized swelling, mass and lump, head (26) Type 2 diabetes mellitus Status: Chronic Qualifiers: Diabetes mellitus long term care pharmacist insulin use: without long term care pharmacist use Diabetes mellitus complication status: with skin complications Code(s): E11.9 - Type 2 diabetes mellitus without complications (27) Ulcer of right lower extremity with fat layer exposed Status: Resolved Code(s): L97.912 - Non-pressure chronic ulcer of unspecified part of right lower leg with fat layer exposed (28) Urinary incontinence, nocturnal enuresis Status: Chronic Code(s): N39.44 - Nocturnal enuresis (29) UTI (urinary tract infection) Status: Resolved Qualifiers: Urinary tract infection type: acute cystitis Hematuria presence: without hematuria Qualified Code(s): N30.00 - Acute cystitis without hematuria Code(s): N39.0 - Urinary tract infection, site not specified (30) Blood infection Status: Resolved Code(s): A41.9 - Sepsis, unspecified organism Comment: 11/05 (31) Family history of hyperlipidemia Status: Chronic Code(s): Z83.438 - Family history of other disorder of lipoprotein metabolism and other lipidemia Type of Wound Date of Service: 10/02/20 Chief Complaint: Ulcer on left posterior heel, left lateral leg and right and left gluteal fold, temi-rectal ulcer and sacral ulcer History of Wound: Adiel is a 34 year old male who is wheelchair bound and paraplegic. [facility] areas he is presenting for evaluation today. He has had his current ulcers for over 2 months. He has been treating the areas with silvercell dressings and recently was placed on an antibiotic by his PCP. The left lower leg ulcers appear to be from pressure. He is unsure of how they developed. His ulcers on his sacrum and right buttock are from pressure and friction from transferring from his wheelchair to chair with his slide board. He also has an area that was from a temi-rectal abscess that is still open and draining. He reports that he is independent in his ADL's but does have a nurse that comes to care for him daily in the morning for a short time daily. He has a history of Type 2 DM, last A1C 7.0% on 12/20/2019. He has been seen at both our wound healing center and [facility]'s in [place] in the past for previous uclers. He has previously received Apligraf to his ulcers of his lower legs but the last application was probably 9 months ago. The patient denies any fever, chills, nausea, vomiting, or diarrhea. Denies any signs of infection, including increasing pain, redness, swelling, or drainage from affected area. Progress of Wound: Zak presents to day for a recheck on the progress of a R gluteal fold stage 3 decubitus ulcer and a left Lateral calf stage 2 decubitus ulcer. The wounds are being dressed with Fibracol and a dry dressing over the fibracol. He told one of the nurses last week that he does not get the dressing changed daily.....this explains the maceration and thick, fibrotic adherent exudate around the wound. He denies F/C/S. No pain. He continues to sit in his motorized WC for long periods of time which impairs wound healing despite admonishment that the wound may not heal if he continues to have pressure on the wound for a large part of the day. He is not using the Lac- Hydrin BID around the wound to try and decrease the callous/thick dry skin around the opening. - Physical Exam Vital Signs Temp Pulse Resp BP 97.0 F L 111 H 16 155/101 H 10/02/20 13:54 10/02/20 13:54 09/25/20 13:51 10/02/20 13:54 Wound Measurements and Assessment WC - Nurse 1 - General Ulcer Measurement Start: 09/18/20 13:30 Freq: Status: Active Protocol: Activity Type Activity Date Activity User E-Sign Co-Sign Detail Recorded Client Recorded Date Recorded By Document 10/02/20 13:54 ANNALISE [id number] 10/02/20 14:00 KR 10/02/20 13:54 Wound Center Nurse 1 [Ulcer Assessment] 10. R buttock fold -Current Size (cm) - Length 2.3 -Current Size (cm) - Width 2.8 -Current Size (cm) - Depth 0.3 -Total Square Cm 6.44 -Exudate Amt Medium -Exudate Type Serosanguineous -Wound Margin Distinct, Outline Attached -Granulation Amt Large (67-100%) -Granulation Quality Red -Texture (Temi-wound Skin Appearance) Assessed, Scarring -Moisture (Temi-wound Skin Appearance Assessed,Dry/ ) Scaly -Color (Temi-wound Skin Appearance) No Abnormality, Assessed -Temperature (Temi-wound Skin No Abnormality Appearance) (Pt Warm) -Tenderness on Palpation (Temi-wound No Skin Appearance) -Ulcer Cleansing Rinsed/ Irrigated with Saline -Foul Odor after Cleansing No -Anesthetic Used 4% Lidocaine Solution 7. L lateral LE -Current Size (cm) - Length 1 -Current Size (cm) - Width 0.2 -Current Size (cm) - Depth 0.1 -Total Square Cm 0.2 -Exudate Amt Small -Exudate Type Serosanguineous -Wound Margin Distinct, Outline Attached -Granulation Amt Large (67-100%) -Granulation Quality Red -Necrosis Amt None Present (0 %) -Texture (Temi-wound Skin Appearance) No Abnormality, Assessed, Scarring -Moisture (Temi-wound Skin Appearance No Abnormality, ) Assessed -Color (Temi-wound Skin Appearance) No Abnormality, Assessed -Temperature (Temi-wound Skin No Abnormality Appearance) (Pt Warm) -Tenderness on Palpation (Temi-wound No Skin Appearance) -Ulcer Cleansing Rinsed/ Irrigated with Saline -Foul Odor after Cleansing No -Anesthetic Used 4% Lidocaine Solution WC - Nurse 2 - General Ulcer CM Notes Start: 09/18/20 13:30 Freq: Status: Active Protocol: Activity Type Activity Date Activity User E-Sign Co-Sign Detail Recorded Client Recorded Date Recorded By Document 10/02/20 14:14 MW [id number] 10/02/20 14:28 MW 10/02/20 14:14 Wound Center Nurse 2 [Procedure/Treatment] 10. R buttock fold -Time 14:14 -Correct Patient Yes -Correct Side, Site, Position Yes -Correct Procedure Yes -Procedure Performed Yes -Type of Procedure Debridement -Clinical Debridement Subcutaneous -Tissue Removed Subcutaneous -Post Debridement (cm) - Length 4.0 -Post Debridement (cm) - Width 3.0 -Post Debridement (cm) - Depth 0.2 -Total Square (Post) (cm) 12.00 -Area of Debridement (cm) - Length 4.0 -Area of Debridement (cm) - Width 3.0 -Total Square (Area) (cm) 12.00 -Tunneling No -Undermining/Tunneling No -Circular Undermining No -Wound/Ulcer Outcome Not Healed -Ulcer Cleansing Rinsed/ Irrigated with Saline -Foul Odor after Cleansing No -Bioengineered Tissue No -Bleeding Controlled with Pressure -Offloading No -Treatment Response Procedure Tolerated Well -Debridement - Subq, 1st 20sq cm Yes 7. L lateral LE -Time 14:16 -Correct Patient Yes -Correct Side, Site, Position Yes -Correct Procedure Yes -Procedure Performed No -Post Debridement (cm) - Length 1.0 -Post Debridement (cm) - Width 0.2 -Post Debridement (cm) - Depth 0.1 -Total Square (Post) (cm) 0.20 -Tunneling No -Undermining/Tunneling No -Circular Undermining No -Wound/Ulcer Outcome Not Healed -Ulcer Cleansing Rinsed/ Irrigated with Saline -Foul Odor after Cleansing No -Bioengineered Tissue No -Bleeding Controlled with Pressure -Offloading No -Treatment Response Procedure Tolerated Well [See Physician Procedure note for Specifics] Pain Scale: 0-10 Numeric [Pain] -Is Patient Pain Free? Yes The skin around the wound of the R gluteal fold is smaller......6.44, down from 8.4 after debridement last week. There is still some thick adherent yellow white tissue surrounding the wound That I was unable to get off last week. The base of the actual wound is beefy red without any odor, purulent DC or temi- wound erythema. Following debridement of most of the remaining slough the wound measured 5 cm?. The wound on the left lateral lower extremity neuro 0.2 cm?, down from 1.4 cm? last week. There is a very small scab over the wound and it was not debrided. there is no temi-wound erythema and no increased warmth to t ouch around the wound. No DC. Debridement Note Post-Debridement Measurements/Treatment WC - Nurse 2 - General Ulcer CM Notes Start: 09/18/20 13:30 Freq: Status: Active Protocol: Activity Type Activity Date Activity User E-Sign Co-Sign Detail Recorded Client Recorded Date Recorded By Document 09/18/20 14:19 MW [id number] 09/18/20 14:32 MW Document 09/25/20 14:06 MW [id number] 09/25/20 14:25 MW Document 10/02/20 14:14 MW [id number] 10/02/20 14:28 MW 09/18/20 09/25/20 10/02/20 14:19 14:06 14:14 Wound Center Nurse 2 10. R buttock fold -Time 14:19 14:15 14:14 -Correct Patient Yes Yes Yes -Correct Side, Site, Position Yes Yes Yes -Correct Procedure Yes Yes Yes -Procedure Performed Yes Yes Yes -Type of Procedure Debridement Debridement Debridement -Clinical Debridement Subcutaneous Subcutaneous Subcutaneous -Tissue Removed Subcutaneous Subcutaneous Subcutaneous -Post Debridement (cm) - Length 3.5 2.8 4.0 -Post Debridement (cm) - Width 5.5 3.0 3.0 -Post Debridement (cm) - Depth 0.2 0.2 0.2 -Total Square (Post) (cm) 19.25 8.40 12.00 -Area of Debridement (cm) - Length 3.5 2.8 4.0 -Area of Debridement (cm) - Width 5.5 3.0 3.0 -Total Square (Area) (cm) 19.25 8.40 12.00 -Tunneling No No No -Undermining/Tunneling No No No -Circular Undermining No No No -Wound/Ulcer Outcome Not Healed Not Healed Not Healed -Ulcer Cleansing Rinsed/ Rinsed/ Rinsed/ Irrigated with Irrigated with Irrigated with Saline Saline Saline -Foul Odor after Cleansing No No No -Bioengineered Tissue No No No -Bleeding Controlled with Pressure,Silver Pressure Pressure Nitrate -Offloading No No No -Treatment Response Procedure Procedure Tolerated Well Tolerated Well -Debridement - Subq, 1st 20sq cm Yes Yes Yes 7. L lateral LE -Time 14:19 14:23 14:16 -Correct Patient Yes Yes Yes -Correct Side, Site, Position Yes Yes Yes -Correct Procedure Yes Yes Yes -Procedure Performed Yes Yes No -Type of Procedure Debridement Debridement -Clinical Debridement Subcutaneous Subcutaneous -Tissue Removed Subcutaneous Subcutaneous -Post Debridement (cm) - Length 4.0 1.4 1.0 -Post Debridement (cm) - Width 1.4 1.0 0.2 -Post Debridement (cm) - Depth 0.1 0.1 0.1 -Total Square (Post) (cm) 5.60 1.40 0.20 -Area of Debridement (cm) - Length 4.0 1.4 -Area of Debridement (cm) - Width 1.4 1.0 -Total Square (Area) (cm) 5.60 1.40 -Tunneling No No No -Undermining/Tunneling No No No -Circular Undermining No No No -Wound/Ulcer Outcome Not Healed Not Healed Not Healed -Ulcer Cleansing Rinsed/ Rinsed/ Rinsed/ Irrigated with Irrigated with Irrigated with Saline Saline Saline -Foul Odor after Cleansing No No No -Bioengineered Tissue No No No -Bleeding Controlled with Pressure Pressure Pressure -Offloading No No No -Treatment Response Procedure Procedure Procedure Tolerated Well Tolerated Well Tolerated Well -Debridement - Subq, 1st 20sq cm No No Pain Scale: 0-10 Numeric Is Patient Pain Free? Yes Yes Yes - Nurse 3 - General Ulcer D/C NN Start: 09/18/20 13:30 Freq: Status: Active Protocol: Activity Type Activity Date Activity User E-Sign Co-Sign Detail Recorded Client Recorded Date Recorded By Document 09/18/20 14:52 [facility] [id number] 09/18/20 14:53 [facility] Document 09/25/20 14:28 MS [id number] 09/25/20 14:30 MS 09/18/20 09/25/20 14:52 14:28 Wound Care Nurse 3 10. R buttock fold -Ulcer Cleansing Rinsed/ Rinsed/ Irrigated with Irrigated with Saline Saline -Foul Odor after Cleansing No No -Primary Dressing Applied Fibracol Plus Fibracol Plus 4x4 4x4 -Other Dressing abd -Primary Dressing Covered/Secured with Secured with Secured with Tape,Other Tape -Other Covering ABD -Fibracol Plus 4x4 1 0 7. L lateral LE -Ulcer Cleansing Rinsed/ Rinsed/ Irrigated with Irrigated with Saline Saline -Foul Odor after Cleansing No -Primary Dressing Applied Fibracol Plus Fibracol Plus 4x4 4x4 -Primary Dressing Covered/Secured with Dry Gauze, Dry Gauze, Secured with Secured with Tape Tape -Fibracol Plus 4x4 0 1 Treatment Response Procedure Tolerated Well Pain Scale: 0-10 Numeric Is Patient Pain Free? Yes Yes - Visit Discharge Discharge Condition Stable Stable Ambulatory Status Wheelchair Wheelchair Transportation Private Auto Medication Reconcilliation completed & No provided to patient/care provider Clinical Summary of Care Provided Yes Wound debrided: R gluteal fold inferior to the R buttock Laterality: Right Type of Debridement: Excisional debridement Anesthesia Used: 4% Lidocaine Solution Depth: Down to and including healthy tissue, in the subcutaneous layer Percentage of wound debrided: 90 Instrument Used: #15 blade, Forceps Severity: Fat Layer Exposed Amount of bleeding with debridement: Mild Bleeding Controlled with: Pressure Patient tolerated procedure well Assessment/Plan Active Problems (Last Reviewed 04/17/20 @ 14:05 by Ana Kc) Morbid obesity with BMI of 40.0-44.9, adult (Chronic) Decubitus ulcer, stage 3 (Acute) R buttock/perineum at the gluteal fold below the buttock. Tachycardia (Chronic) Family history of hyperlipidemia (Chronic) Obesity (Chronic) EDWIGE (obstructive sleep apnea) (Chronic) Overall AHI 102 events per hour - not on treatment Paraplegia (Chronic) Pressure injury of right buttock, stage 2 (Chronic) Urinary incontinence, nocturnal enuresis (Chronic) Diabetic ulcer of lower leg associated with type 2 diabetes mellitus, with fat layer exposed (Chronic) left lateral arora PVD (peripheral vascular disease) (Chronic) Diarrhea (Chronic) Sebaceous cyst (Chronic) of right hindu involving very lateral eyebrow Swelling, mass, or lump on face (Chronic) Type 2 diabetes mellitus (Chronic) Hypersomnolence (Chronic) more likely than not due to untreated EDWIGE Cavernous hemangioma (Chronic) 10/2009 - spine....resulted in paraplegia High blood pressure (Chronic) 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 stage 3 R gluteal fold decubitus ulcer - this is doing very well and it is liang and healing from the bottm up. Additional debridement of the adherent yellow macerated slough was done today and the wound base is beefy red and granulating. 2. stage 2 decubitus ulcer of the LLE - very small pinpoint scab over the wound now and I left it alone today. 3. Left heel ulcer - healed but he is not using the Lac-hydrin as instructed and the callous has cracks in it and this puts him at risk for infection. 4. paraplegia - spends at least 4 hours a day sitting on a motorized WC/scooter. Despite this the R gluteal fold ulcer is liang. 5. DM II - diet controlled - has not had any lab since last December. Does not check his blood sugars. He is not taking any medications and has not been to see Dr. Andersen for a long time. 6. HTN and tachycardia. 6. morbid obesity Plan: 1. continue the LacHydrin to the left heel and also around the anal wound.....not in the wound. 2. Continue Fibracol to R gluteal fold wound but cover with dry dressing and discontinue adaptic. 3. No antibiotics today. Zak will call me or the [facility] if he develops fever, chills or sweats. 4. RTC in 1 week for a recheck. 5. Limit sessions in the WC to no more that 1 hour at a time to decrease pressure on the wounds. 6. I had a discussion with Zak about the BP and told him if he does not get this under control he is at risk for a stroke. We discussed starting a once a day medication and he was agreeable to this. I also recommended we get some new lab since he has not had any lab done since last December and he agreed to this as well. CBC, CMP, HGBA1C and a lipid panel were ordered. A RX for Atenolol 25 mg was faxed to [facility] pharmacy in [place]. He will take the Atenolol at and he will RTC in 1 week to recheck the wound and the BP. Will review the lab with him after he has it done. Office Visits / Consults: [id number] OV L3 Est
== END 2020-10-17 23:59 ==
LOC: WC 13:45
PROVIDERS: Family Provider Internal Medicine; PCP Internal Medicine; Referring Provider Nurse Practitioner Family; Visit Provider Internal Medicine
DX: L89.313 Pressure ulcer of right buttock, stage 3 (principal); L89.312 Pressure ulcer of right buttock, stage 2; L89.892 Pressure ulcer of other site, stage 2; E11.51 Type 2 diabetes mellitus with diabetic peripheral angiopathy without gangrene; I10 Essential (primary) hypertension; N39.44 Nocturnal enuresis; G82.20 Paraplegia, unspecified; Z99.3 Dependence on wheelchair; G47.33 Obstructive sleep apnea (adult) (pediatric); E66.01 Morbid (severe) obesity due to excess calories; Z68.41 Body mass index [BMI] 40.0-44.9, adult; Z79.899 Other long term (current) drug therapy
CPT/HCPCS: 11042

== ENCOUNTER 2020-11-13 13:10 | Outpatient (RCR) | payer MEDICARE, SELFPAY ==
[2020-10-18 00:19] VITALS: BP 155/101; PULSE 111; RESP 16; TEMP 36.1
[2020-11-13 13:19] VITALS: BP 149/83; PULSE 99; RESP 18; TEMP 37.1; BMI 43.4
--- NOTE | 2020-11-13 13:20 | PN.PCM_ITS ---
History of Present Illness Date of Service: 11/19/20 Chief Complaint: Ulcer on left posterior heel, left lateral leg and right and left gluteal fold, erma-rectal ulcer and sacral ulcer History of Wound: Adiel is a 34 year old male who is wheelchair bound and paraplegic. [facility] the same areas he is presenting for evaluation today. He has had his current ulcers for over 2 months. He has been treating the areas with silvercell dressings and recently was placed on an antibiotic by his PCP. The left lower leg ulcers appear to be from pressure. He is unsure of how they developed. His ulcers on his sacrum and right buttock are from pressure and friction from transferring from his wheelchair to chair with his slide board. He also has an area that was from a erma-rectal abscess that is still open and draining. He reports that he is independent in his ADL's but does have a nurse that comes to care for him daily in the morning for a short time daily. He has a history of Type 2 DM, last A1C 7.0% on 12/20/2019. He has been seen at both our wound healing center and [facility]'s in [place] in the past for previous uclers. He has previously received Apligraf to his ulcers of his lower legs but the last application was probably 9 months ago. The patient denies any fever, chills, nausea, vomiting, or diarrhea. Denies any signs of infection, including increasing pain, redness, swelling, or drainage from affected area. Subjective Subjective: Denies fevers, chills, sweats. He has not followed up since 10/02/20. He was on vacation and then he was quarantined because family staying with him had COVID. He di not have COVID. He continues to use the Lachydrin around the anus and the tops of the posterior thighs to decrease the hyperkeratotic skin. Objective Data Objective Data Vital Signs: Vital Signs Temp Pulse Resp BP 97.0 F L 111 H 16 155/101 H 10/18/20 00:19 10/18/20 00:19 10/18/20 00:19 10/18/20 00:19 Weight: 330 lb Body Mass Index (BMI) 43.4 Assessment & Plan Assessment/Plan (1) Pressure injury of right buttock, stage 2: Status: Chronic Code(s): L89.312 - Pressure ulcer of right buttock, stage 2 Plan: Continue current dressing (2) Pressure ulcer of left leg, stage 2: Status: Acute Code(s): L89.892 - Pressure ulcer of other site, stage 2 (3) Hyperkeratosis: Status: Acute Code(s): L85.9 - Epidermal thickening, unspecified Plan: Continue Lac-Hydrin to the BL gluteal folds (4) Decubitus skin ulcer: Status: Acute Code(s): L89.90 - Pressure ulcer of unspecified site, unspecified stage Plan: perirectal stage 2 Mepilex - change every 2-3 days Charges/Coding Office Visits / Consults: [id number] OV L2 Est
--- NOTE | 2020-11-19 13:53 | PCM.WC.PN ---
History of Present Illness Date of Service: 11/19/20 Chief Complaint: Ulcer on left posterior heel, left lateral leg and right and left gluteal fold, erma-rectal ulcer and sacral ulcer History of Wound: Adiel is a 34 year old male who is wheelchair bound and paraplegic. [facility] he is presenting for evaluation today. He has had his current ulcers for over 2 months. He has been treating the areas with silvercell dressings and recently was placed on an antibiotic by his PCP. The left lower leg ulcers appear to be from pressure. He is unsure of how they developed. His ulcers on his sacrum and right buttock are from pressure and friction from transferring from his wheelchair to chair with his slide board. He also has an area that was from a erma-rectal abscess that is still open and draining. He reports that he is independent in his ADL's but does have a nurse that comes to care for him daily in the morning for a short time daily. He has a history of Type 2 DM, last A1C 7.0% on 12/20/2019. He has been seen at both our wound healing center and [facility]'s in [place] in the past for previous uclers. He has previously received Apligraf to his ulcers of his lower legs but the last application was probably 9 months ago. The patient denies any fever, chills, nausea, vomiting, or diarrhea. Denies any signs of infection, including increasing pain, redness, swelling, or drainage from affected area. Objective Data Objective Data Vital Signs: Vital Signs Temp Pulse Resp BP 98.7 F 99 18 149/83 H 11/13/20 13:19 11/13/20 13:19 11/13/20 13:19 11/13/20 13:19 Oxygen Delivery Method Room Air Weight: 330 lb Body Mass Index (BMI) 43.4 Debridement Note Debridement Note Post-Debridement Measurements and Additional Note: Post-Debridement Measurements/Treatment WC - Nurse 2 - General Ulcer CM Notes Start: 11/13/20 13:17 Freq: Status: Active Protocol: Activity Type Activity Date Activity User E-Sign Co-Sign Detail Recorded Client Recorded Date Recorded By Document 11/13/20 13:44 MW [id number] 11/13/20 13:51 MW 11/13/20 13:44 Wound Center Nurse 2 10. R buttock fold -Time 13:44 -Correct Patient Yes -Correct Side, Site, Position Yes -Correct Procedure Yes -Procedure Performed Yes -Type of Procedure Debridement -Clinical Debridement Subcutaneous -Tissue Removed Subcutaneous -Post Debridement (cm) - Length 2.5 -Post Debridement (cm) - Width 4.0 -Post Debridement (cm) - Depth 1.3 -Total Square (Post) (cm) 10.00 -Area of Debridement (cm) - Length 2.5 -Area of Debridement (cm) - Width 4.0 -Total Square (Area) (cm) 10.00 -Tunneling No -Undermining/Tunneling No -Circular Undermining No -Wound/Ulcer Outcome Not Healed -Ulcer Cleansing Rinsed/ Irrigated with Saline -Foul Odor after Cleansing No -Bioengineered Tissue No -Bleeding Controlled with Pressure -Offloading No -Treatment Response Procedure Tolerated Well -Debridement - Subq, 1st 20sq cm Yes 7. L lateral LE -Time 13:45 -Correct Patient Yes -Correct Side, Site, Position Yes -Correct Procedure Yes -Procedure Performed Yes -Type of Procedure Debridement -Clinical Debridement Subcutaneous -Tissue Removed Subcutaneous -Post Debridement (cm) - Length 2.8 -Post Debridement (cm) - Width 1.5 -Post Debridement (cm) - Depth 0.1 -Total Square (Post) (cm) 4.20 -Area of Debridement (cm) - Length 2.8 -Area of Debridement (cm) - Width 1.5 -Total Square (Area) (cm) 4.20 -Tunneling No -Undermining/Tunneling No -Circular Undermining No -Wound/Ulcer Outcome Not Healed -Ulcer Cleansing Rinsed/ Irrigated with Saline -Foul Odor after Cleansing No -Bioengineered Tissue No -Bleeding Controlled with Pressure -Offloading No -Treatment Response Procedure Tolerated Well -Debridement - Subq, 1st 20sq cm No Pain Scale: 0-10 Numeric Is Patient Pain Free? Yes WC - Nurse 3 - General Ulcer D/C NN Start: 11/13/20 13:17 Freq: Status: Active Protocol: Activity Type Activity Date Activity User E-Sign Co-Sign Detail Recorded Client Recorded Date Recorded By Document 11/13/20 14:09 DL [id number] 11/13/20 14:13 DL 11/13/20 14:09 Wound Care Nurse 3 10. R buttock fold -Ulcer Cleansing Wound Cleanser -Foul Odor after Cleansing No -Primary Dressing Applied Fibracol Plus 4x4 -Primary Dressing Covered/Secured with Dry Gauze, Secured with Tape -Fibracol Plus 4x4 1 7. L lateral LE -Ulcer Cleansing Rinsed/ Irrigated with Saline -Foul Odor after Cleansing No -Primary Dressing Applied C Hydrogel ($), NonAdherent Contact Layer -Primary Dressing Covered/Secured with Dry Gauze, Secured with Tape Treatment Response Procedure Tolerated Well Pain Scale: 0-10 Numeric Is Patient Pain Free? Yes WC - Visit Discharge Discharge Condition Stable Ambulatory Status Wheelchair Transportation Private Auto Notes: Mepilx to Buttocks area.
--- NOTE | 2020-11-19 14:21 | PCM.WC.PN ---
History of Present Illness Date of Service: 12/03/20 Chief Complaint: Ulcer on left posterior heel, left lateral leg and right and left gluteal fold, erma-rectal ulcer and sacral ulcer History of Wound: Adiel is a 34 year old male who is wheelchair bound and paraplegic. [facility] same areas he is presenting for evaluation today. He has had his current ulcers for over 2 months. He has been treating the areas with silvercell dressings and recently was placed on an antibiotic by his PCP. The left lower leg ulcers appear to be from pressure. He is unsure of how they developed. His ulcers on his sacrum and right buttock are from pressure and friction from transferring from his wheelchair to chair with his slide board. He also has an area that was from a erma-rectal abscess that is still open and draining. He reports that he is independent in his ADL's but does have a nurse that comes to care for him daily in the morning for a short time daily. He has a history of Type 2 DM, last A1C 7.0% on 12/20/2019. He has been seen at both our wound healing center and [facility]'s in [place] in the past for previous uclers. He has previously received Apligraf to his ulcers of his lower legs but the last application was probably 9 months ago. The patient denies any fever, chills, nausea, vomiting, or diarrhea. Denies any signs of infection, including increasing pain, redness, swelling, or drainage from affected area. Subjective Subjective: Subjective: Denies fevers, chills, sweats.? He has not followed up since 10/02/20. ? He was on vacation and then he was quarantined because family staying with him had COVID.? He di not have COVID.? He continues to use the Lachydrin around the anus and the tops of the posterior thighs to decrease the hyperkeratotic skin.? Objective Data Objective Data Vital Signs: Vital Signs Temp Pulse Resp BP 98.7 F 99 18 149/83 H 11/13/20 13:19 11/13/20 13:19 11/13/20 13:19 11/13/20 13:19 Oxygen Delivery Method Room Air Weight: 330 lb Body Mass Index (BMI) 43.4 Assessment & Plan Assessment/Plan (1) Hyperkeratosis: Status: Acute Code(s): L85.9 - Epidermal thickening, unspecified Plan: Continue Lac-Hydrin and weekly debridements until the hyperkeratotic tissue has resolved. (2) Pressure ulcer of left leg, stage 2: Status: Acute Code(s): L89.892 - Pressure ulcer of other site, stage 2 Plan: Change the dressing to a hydrogel to keep the tissue moist and improve healing. (3) Decubitus ulcer, stage 3: Status: Acute Code(s): L89.93 - Pressure ulcer of unspecified site, stage 3 Qualifiers: Pressure injury location: buttock Laterality: right Qualified Code(s): L89.313 - Pressure ulcer of right buttock, stage 3 Plan: Continue to encourage him to avoid prolonged sitting and offload pressure Charges/Coding Visit Charges Office Visits / Consults: [id number] OV L2 Est Physical Exam Skin Wounds: wounds noted Wound Narrative: The wounds are looking better with decrease in the hyperkeratotic tissue since we have been debriding and using Lac-Hydrin. The wound on the lateral leg is dry and has eschar which was debrided......will change to a hydrogel to keep it moist. Assessment and Debridement 1. LEFT LATERAL LOWER LEG: Laterality: Left Wound Grade/Stage: pressure ulcer Left lateral leg stage 2 Type of Debridement: Excisional debridement Depth: Down to and including healthy tissue Percentage of Wound Debrided: 100 Instrument Used: #15 blade and Forceps Tissue Removed: eschar covering the entire wound Amt of Bleeding w/Debridement: Mild Bleeding Controlled with: Pressure Patient Tolerated Procedure: Patient tolerated procedure well Operative Diagnosis: stage 2 pressure ulcer 9. R sacral cluster: Laterality: Right Wound Grade/Stage: stage 2 decubitus ulcer Type of Debridement: Selective debridement Depth: Down to and including healthy tissue Percentage of Wound Debrided: 100 Instrument Used: #15 blade, Forceps and - Tissue Removed: debrided the remainder of the white hyperkeratotic tissue around the wound Severity: Limited To Skin Breakdown Amt of Bleeding w/Debridement: Mild Bleeding Controlled with: Pressure Patient Tolerated Procedure: Patient tolerated procedure well 10. R buttock fold: Operative Diagnosis: continue the Lac-Hydrin to decrease the hyperkeratotic tissue in the area Debridement not Completed: No debridement was completed today #12 left buttock fold: Debridement not Completed: No debridement was completed today Debridement Note Debridement Note Post-Debridement Measurements and Additional Note: Post-Debridement Measurements/Treatment WC - Nurse 2 - General Ulcer CM Notes Start: 11/13/20 13:17 Freq: Status: Active Protocol: Activity Type Activity Date Activity User E-Sign Co-Sign Detail Recorded Client Recorded Date Recorded By Document 11/13/20 13:44 MW [id number] 11/13/20 13:51 MW 11/13/20 13:44 Wound Center Nurse 2 10. R buttock fold -Time 13:44 -Correct Patient Yes -Correct Side, Site, Position Yes -Correct Procedure Yes -Procedure Performed Yes -Type of Procedure Debridement -Clinical Debridement Subcutaneous -Tissue Removed Subcutaneous -Post Debridement (cm) - Length 2.5 -Post Debridement (cm) - Width 4.0 -Post Debridement (cm) - Depth 1.3 -Total Square (Post) (cm) 10.00 -Area of Debridement (cm) - Length 2.5 -Area of Debridement (cm) - Width 4.0 -Total Square (Area) (cm) 10.00 -Tunneling No -Undermining/Tunneling No -Circular Undermining No -Wound/Ulcer Outcome Not Healed -Ulcer Cleansing Rinsed/ Irrigated with Saline -Foul Odor after Cleansing No -Bioengineered Tissue No -Bleeding Controlled with Pressure -Offloading No -Treatment Response Procedure Tolerated Well -Debridement - Subq, 1st 20sq cm Yes 7. L lateral LE -Time 13:45 -Correct Patient Yes -Correct Side, Site, Position Yes -Correct Procedure Yes -Procedure Performed Yes -Type of Procedure Debridement -Clinical Debridement Subcutaneous -Tissue Removed Subcutaneous -Post Debridement (cm) - Length 2.8 -Post Debridement (cm) - Width 1.5 -Post Debridement (cm) - Depth 0.1 -Total Square (Post) (cm) 4.20 -Area of Debridement (cm) - Length 2.8 -Area of Debridement (cm) - Width 1.5 -Total Square (Area) (cm) 4.20 -Tunneling No -Undermining/Tunneling No -Circular Undermining No -Wound/Ulcer Outcome Not Healed -Ulcer Cleansing Rinsed/ Irrigated with Saline -Foul Odor after Cleansing No -Bioengineered Tissue No -Bleeding Controlled with Pressure -Offloading No -Treatment Response Procedure Tolerated Well -Debridement - Subq, 1st 20sq cm No Pain Scale: 0-10 Numeric Is Patient Pain Free? Yes WC - Nurse 3 - General Ulcer D/C NN Start: 11/13/20 13:17 Freq: Status: Active Protocol: Activity Type Activity Date Activity User E-Sign Co-Sign Detail Recorded Client Recorded Date Recorded By Document 11/13/20 14:09 DL [id number] 11/13/20 14:13 DL 11/13/20 14:09 Wound Care Nurse 3 10. R buttock fold -Ulcer Cleansing Wound Cleanser -Foul Odor after Cleansing No -Primary Dressing Applied Fibracol Plus 4x4 -Primary Dressing Covered/Secured with Dry Gauze, Secured with Tape -Fibracol Plus 4x4 1 7. L lateral LE -Ulcer Cleansing Rinsed/ Irrigated with Saline -Foul Odor after Cleansing No -Primary Dressing Applied C Hydrogel ($), NonAdherent Contact Layer -Primary Dressing Covered/Secured with Dry Gauze, Secured with Tape Treatment Response Procedure Tolerated Well Pain Scale: 0-10 Numeric Is Patient Pain Free? Yes WC - Visit Discharge Discharge Condition Stable Ambulatory Status Wheelchair Transportation Private Auto Notes: Mepilx to Buttocks area.
== END 2020-11-16 23:59 ==
LOC: WC 13:10
PROVIDERS: Family Provider Internal Medicine; PCP Internal Medicine; Referring Provider Nurse Practitioner Family; Visit Provider Internal Medicine
DX: L89.313 Pressure ulcer of right buttock, stage 3 (principal); L89.892 Pressure ulcer of other site, stage 2; L89.152 Pressure ulcer of sacral region, stage 2; K61.1 Rectal abscess; G82.20 Paraplegia, unspecified; L85.9 Epidermal thickening, unspecified; E11.9 Type 2 diabetes mellitus without complications; Z99.3 Dependence on wheelchair; Z79.899 Other long term (current) drug therapy
CPT/HCPCS: 11042; 99213; G0463

== ENCOUNTER 2020-12-04 13:00 | Outpatient (RCR) | payer MEDICARE, SELFPAY ==
[2020-11-17 00:21] VITALS: BP 149/83; PULSE 99; RESP 18; TEMP 37.1
[2020-11-27 13:10] VITALS: BP 126/84; PULSE 116; RESP 20; TEMP 36.4; BMI 43.4
--- NOTE | 2020-11-27 14:53 | PCM.WC.PN ---
History of Present Illness Date of Service: 12/03/20 Chief Complaint: Ulcer on left posterior heel, left lateral leg and right and left gluteal fold, temi-rectal ulcer and sacral ulcer History of Wound: Adiel is a 34 year old male who is wheelchair bound and paraplegic. [facility] areas he is presenting for evaluation today. He has had his current ulcers for over 2 months. He has been treating the areas with silvercell dressings and recently was placed on an antibiotic by his PCP. The left lower leg ulcers appear to be from pressure. He is unsure of how they developed. His ulcers on his sacrum and right buttock are from pressure and friction from transferring from his wheelchair to chair with his slide board. He also has an area that was from a temi-rectal abscess that is still open and draining. He reports that he is independent in his ADL's but does have a nurse that comes to care for him daily in the morning for a short time daily. He has a history of Type 2 DM, last A1C 7.0% on 12/20/2019. He has been seen at both our wound healing center and [facility]'s in [place] in the past for previous uclers. He has previously received Apligraf to his ulcers of his lower legs but the last application was probably 9 months ago. The patient denies any fever, chills, nausea, vomiting, or diarrhea. Denies any signs of infection, including increasing pain, redness, swelling, or drainage from affected area. Subjective Subjective Zak denies fevers, chills, night sweats. He tells me he had a urinary tract infection last week but he ordered a product online and it worked well. It was not a prescription. He has a new wound in the temi-anal area and a second new wound over the coccyx. The temi-anal wound has been draining. The heart rate is increased today but it is likely due to exertion of getting his WC out of the truck and getting into it. When I rechecked it at rest it was in the low 90's. Objective Data Objective Data Vital Signs: Vital Signs Temp Pulse Resp BP 97.6 F L 116 H 20 H 126/84 H 11/27/20 13:10 11/27/20 13:10 11/27/20 13:10 11/27/20 13:10 Weight: 330 lb Body Mass Index (BMI) 43.4 Assessment & Plan Assessment/Plan (1) Decubitus ulcer, stage 3: QUALIFIERS: Pressure injury location: buttock Laterality: right Qualified Code(s): L89.313 - Pressure ulcer of right buttock, stage 3 PLAN: Continue weekly appts for debridement (2) Pressure ulcer of left leg, stage 2: PLAN: continue the hydrogel and cover with (3) Hyperkeratosis: PLAN: continue the Lac-hydrin (4) Decubitus ulcer, stage 2: PLAN: of the coccyx. fibracol with a Mepilex border. RTC in 1 week to re-examine (5) External hemorrhoids: PLAN: Anusol suppositories Charges/Coding Visit Charges Inpatient E&M: 78599 Subs Hosp L2 Physical Exam Const alert, oriented x3, no apparent distress, healthy appearing and well nourished General Appearance: cooperative Skin Wounds: wounds noted Wound Narrative: The temi-anal wound is what appears to be a swollen hemorrhoid. The skin is thin and there a few small tears in the skin. It is not thrombosed. There is no odor. Drainage is serosanguineous and thin. No increased warmth to touch or erythema around the area. the wounds are oozing and aerobic and anaerobic swabs were taken and will be sent to the lab for culture. The wound over the coccyx is a stage 2 decubitus ulcer and it is dry. No sign of infection. The wound in the R gluteal fold is liang and there is 100% beefy red granulation tissue in the base of the wound. Most of the white hyperkeratotic tissue surrounding this wound has already been debrided.....there is a small amount left at the rim laterally and this was debrided off today. Debridement Note Debridement Note Post-Debridement Measurements and Additional Note: Post-Debridement Measurements/Treatment RONAL - Nurse 1 - General Ulcer Assessment Start: 11/27/20 13:10 Freq: Status: Active Protocol: SHALONDA Activity Type Activity Date Activity User E-Sign Co-Sign Detail Recorded Client Recorded Date Recorded By Document 11/27/20 13:10 DL [id number] 11/27/20 13:20 DL 11/27/20 13:10 WC - Today's Visit Information Type of service Follow-up Visit (Physician/[facility] ) Arrival Mode Wheelchair Transfer Assistance None Patient Identification Verified (Name & Yes ) Patient Requires Transmission-Based No Precautions Height and Weight Body Mass Index (BMI) 43.4 BMI Classification Obese Vital Signs Temperature (97.8 F-99.1 F) 97.6 F L Temperature Source Temporal Pulse Rate (60-100) 116 H Pulse Location Monitor Respiratory Rate (12-18) 20 H Respiratory rate source Observation Blood Pressure (90/60-120/80) 126/84 H Blood Pressure Mean (mm Hg) 98 Source Monitor History Since Last Visit- (Skip if this is Patient's initial visit) Have you changed medications since your No last visit? Any new allergies or adverse reactions No Had a fall/change in ADL's that may No increase risk of falls Signs or symptoms of abuse and/or No neglect since last visit Has dressing in place as prescribed Yes Has compression in place as prescribed N/A Has offloadiing in place as prescribed Yes Experienced any changes in pain level or No management Pain Scale: 0-10 Numeric Is Patient Pain Free? Yes WC - Nurse 1 - General Ulcer Measurement Start: 11/27/20 13:10 Freq: Status: Active Protocol: Activity Type Activity Date Activity User E-Sign Co-Sign Detail Recorded Client Recorded Date Recorded By Document 11/27/20 13:10 DL [id number] 11/27/20 13:20 DL 11/27/20 13:10 Wound Center Nurse 1 #13 coccyx -Current Size (cm) - Length 1 -Current Size (cm) - Width 1 -Current Size (cm) - Depth 0.2 -Total Square Cm 1 -Photo Taken Yes -Exudate Amt Small -Exudate Type Serosanguineous -Wound Margin Thickened & Rolled Under -Granulation Amt Small (1-33%) -Granulation Quality Ehrenfeld -Necrosis Amt Small (1-33%) -Necrotic Tissue Type Adherent Slough -Structure Exposed N/A -Texture (Temi-wound Skin Appearance) Scarring -Moisture (Temi-wound Skin Appearance) Weeping -Color (Temi-wound Skin Appearance) No Abnormality -Temperature (Temi-wound Skin No Abnormality Appearance) (Pt Warm) -Tenderness on Palpation (Temi-wound No Skin Appearance) -Ulcer Cleansing Wound Cleanser -Foul Odor after Cleansing No 10. R buttock fold -Current Size (cm) - Length 3.6 -Current Size (cm) - Width 3.7 -Current Size (cm) - Depth 0.3 -Total Square Cm 13.32 -Photo Taken No -Exudate Amt Small -Exudate Type Serosanguineous -Wound Margin Thickened -Granulation Amt Large (67-100%) -Granulation Quality Pale -Necrosis Amt None Present (0 %) -Structure Exposed N/A -Texture (Temi-wound Skin Appearance) Scarring -Moisture (Temi-wound Skin Appearance) No Abnormality -Color (Temi-wound Skin Appearance) No Abnormality -Temperature (Temi-wound Skin No Abnormality Appearance) (Pt Warm) 7. L lateral LE -Current Size (cm) - Length 1.9 -Current Size (cm) - Width 0.9 -Current Size (cm) - Depth 0.1 -Total Square Cm 1.71 -Photo Taken No -Exudate Amt Small -Exudate Type Serosanguineous -Wound Margin Distinct, Outline Attached -Granulation Amt Small (1-33%) -Granulation Quality Ehrenfeld -Necrosis Amt Large (67-100%) -Necrotic Tissue Type Adherent Slough -Structure Exposed N/A -Texture (Temi-wound Skin Appearance) Scarring -Moisture (Temi-wound Skin Appearance) No Abnormality -Color (Temi-wound Skin Appearance) Assessed -Temperature (Temi-wound Skin No Abnormality Appearance) (Pt Warm) -Tenderness on Palpation (Temi-wound No Skin Appearance) -Ulcer Cleansing Rinsed/ Irrigated with Saline -Foul Odor after Cleansing No WC - Nurse 2 - General Ulcer CM Notes Start: 11/27/20 13:10 Freq: Status: Active Protocol: Activity Type Activity Date Activity User E-Sign Co-Sign Detail Recorded Client Recorded Date Recorded By Document 11/27/20 13:26 MW [id number] 11/27/20 13:58 MW 11/27/20 13:26 Wound Center Nurse 2 #13 coccyx -Time 13:43 -Correct Patient Yes -Correct Side, Site, Position Yes -Correct Procedure Yes -Procedure Performed No -Tunneling No -Undermining/Tunneling No -Circular Undermining No -Wound/Ulcer Outcome Not Healed -Ulcer Cleansing Rinsed/ Irrigated with Saline -Foul Odor after Cleansing No -Bioengineered Tissue No -Bleeding Controlled with NA -Offloading No -Treatment Response Procedure Tolerated Well 10. R buttock fold -Time 13:43 -Correct Patient Yes -Correct Side, Site, Position Yes -Correct Procedure Yes -Procedure Performed Yes -Type of Procedure Debridement -Clinical Debridement Subcutaneous -Tissue Removed Subcutaneous -Post Debridement (cm) - Length 2.5 -Post Debridement (cm) - Width 3.0 -Post Debridement (cm) - Depth 1.0 -Total Square (Post) (cm) 7.50 -Area of Debridement (cm) - Length 2.5 -Area of Debridement (cm) - Width 3.0 -Total Square (Area) (cm) 7.50 -Tunneling No -Undermining/Tunneling No -Circular Undermining No -Wound/Ulcer Outcome Not Healed -Ulcer Cleansing Rinsed/ Irrigated with Saline -Foul Odor after Cleansing No -Bioengineered Tissue No -Bleeding Controlled with Pressure -Offloading No -Type of Offloading Surgical Shoe -Debridement - Subq, 1st 20sq cm Yes 7. L lateral LE -Time 13:50 -Correct Patient Yes -Correct Side, Site, Position Yes -Correct Procedure Yes -Procedure Performed Yes -Type of Procedure Debridement -Clinical Debridement Subcutaneous -Tissue Removed Subcutaneous -Post Debridement (cm) - Length 2.5 -Post Debridement (cm) - Width 1.2 -Post Debridement (cm) - Depth 0.1 -Total Square (Post) (cm) 3.00 -Area of Debridement (cm) - Length 2.5 -Area of Debridement (cm) - Width 1.2 -Total Square (Area) (cm) 3.00 -Tunneling No -Undermining/Tunneling No -Circular Undermining No -Wound/Ulcer Outcome Not Healed -Ulcer Cleansing Rinsed/ Irrigated with Saline -Foul Odor after Cleansing No -Bioengineered Tissue No -Bleeding Controlled with Pressure -Offloading No -Treatment Response Procedure Tolerated Well -Debridement - Subq, 1st 20sq cm No Pain Scale: 0-10 Numeric Is Patient Pain Free? Yes WC - Nurse 3 - General Ulcer D/C NN Start: 11/27/20 13:10 Freq: Status: Active Protocol: Activity Type Activity Date Activity User E-Sign Co-Sign Detail Recorded Client Recorded Date Recorded By Document 11/27/20 13:59 MW [id number] 11/27/20 14:01 MW 11/27/20 13:59 Wound Care Nurse 3 #13 coccyx -Ulcer Cleansing Rinsed/ Irrigated with Saline -Foul Odor after Cleansing No -Negative Pressure Wound Therapy N/A -Primary Dressing Applied Fibracol Plus 4x4,Mepilex Border -Fibracol Plus 4x4 1 -Mepilex Border 1 10. R buttock fold -Ulcer Cleansing Rinsed/ Irrigated with Saline -Foul Odor after Cleansing No -Negative Pressure Wound Therapy N/A -Primary Dressing Applied Mepilex Border -Other Dressing fibracol plus -Mepilex Border 1 7. L lateral LE -Ulcer Cleansing Rinsed/ Irrigated with Saline -Foul Odor after Cleansing No -Negative Pressure Wound Therapy N/A -Primary Dressing Applied NonAdherent Contact Layer -Other Dressing c.hydrogel -Primary Dressing Covered/Secured with Dry Gauze, Secured with Tape Treatment Response Procedure Tolerated Well Pain Scale: 0-10 Numeric Is Patient Pain Free? Yes Teaching: Wound Center Dressing Your Wound -Person Taught Patient -Teaching Method Discussion -Response to teaching Verbalize understanding WC - Visit Discharge Discharge Condition Stable Ambulatory Status Ambulatory Transportation Private Auto Accompanied by self Medication Reconcilliation completed & No provided to patient/care provider Clinical Summary of Care Provided Yes
[2020-12-04 13:13] VITALS: BP 164/86; PULSE 102; RESP 20; TEMP 36.9; BMI 43.4
--- NOTE | 2020-12-04 13:43 | PCM.WC.PN ---
History of Present Illness Date of Service: 12/06/20 Chief Complaint: Ulcer on left posterior heel, left lateral leg and right and left gluteal fold, temi-rectal ulcer and sacral ulcer History of Wound: Adiel is a 34 year old male who is wheelchair bound and paraplegic. [facility] areas he is presenting for evaluation today. He has had his current ulcers for over 2 months. He has been treating the areas with silvercell dressings and recently was placed on an antibiotic by his PCP. The left lower leg ulcers appear to be from pressure. He is unsure of how they developed. His ulcers on his sacrum and right buttock are from pressure and friction from transferring from his wheelchair to chair with his slide board. He also has an area that was from a temi-rectal abscess that is still open and draining. He reports that he is independent in his ADL's but does have a nurse that comes to care for him daily in the morning for a short time daily. He has a history of Type 2 DM, last A1C 7.0% on 12/20/2019. He has been seen at both our wound healing center and [facility] in [place] in the past for previous uclers. He has previously received Apligraf to his ulcers of his lower legs but the last application was probably 9 months ago. The patient denies any fever, chills, nausea, vomiting, or diarrhea. Denies any signs of infection, including increasing pain, redness, swelling, or drainage from affected area. Nicki Crespo presents to the [facility] for a follow up visit. He denies fevers, chills, sweats. He was in the shower recently and had a large amount of bright red bleeding from the anus which I suspect is hemorrhoidal. He denies lightheadedness, shortness of breath, chest pain. He has no complaints. BP and HR are always elevated when he comes to the [facility] but, he associates this with exertion getting out of his truck and into the WC and then into the C......however he has usually had time to sit in the waiting room prior to having his VS checked. He tells me that he only picked up the Augmentin in [place] and started taking it yesterday. He tells me he still has a UTI.......if the sx do not resolve with Augmentin I told him to bring us a urine sample to send for culture. I reviewed the results of the recent culture of the temi-anal drainage and it is polymicrobial. The results are similar to the culture done in August. The anaerobic culture grew Clostridium clostridoforme. The staph hemolyticus is oxacillin resistant. It is sensitive to Bactrim, doxycycline, erythromycin and intermediately sensitive to Levaquin. All other organisms are sensitive to Augmentin. Objective Data Objective Data Vital Signs: Vital Signs Temp Pulse Resp BP 98.5 F 102 H 20 H 164/86 H 12/04/20 13:13 12/04/20 13:13 12/04/20 13:13 12/04/20 13:13 Weight: 330 lb Body Mass Index (BMI) 43.4 Lab / Micro Data Micro: Microbiology 11/28/20 13:30 Wound Abcess - Buttock Gram Stain - Final 11/28/20 13:30 Wound Abcess - Buttock Wound Culture - Final Staphylococcus aureus Staphylococcus haemolyticus Proteus mirabilis Acinetobacter baumannii Streptococcus dysgalactiae dys 11/28/20 13:30 Wound Abcess - Buttock Anaerobic Culture - Final Clostridium clostridioforme Charges/Coding Addendum Addendum: 1. Non-healing R gluteal fold stage 3 decubitus ulcer - continue the current dressing and RTC in 1 week for recheck 2. L lateral leg stage 2 decubitus ulcer - DC the Santyl and start hydrogel 3. Small stage 2 coccygeal ulcer - continue current dressing 4. Large internal and external hemorrhoids - we discusssed obtaining a surgical consult......jay since he recently had hematochezia. He will think about it. Multi Select Codes Integumentary Integumentary CPT Codes: 23786 Mylene subq tissue 20 sq cm/< Physical Exam Const alert, oriented x3 and no apparent distress General Appearance: cooperative Resp normal respiratory effort and no use of accessory muscles Resp Narrative: No conversational dyspnea Cardio regular rate and regular rhythm Skin Wounds: wounds noted Wound Narrative: 1. the oozing DC from a large external hemorrhoid has resolved. the hemorrhoid is soft with no thrombosis. He has large external hemorrhoidal disease and he also has large internal hemorrhoids on rectal exam. He needs to be disimpacted regularly. 2. there is a small stage 2 decubitus ulcer over the coccyx with no temi-wound erythema and no purulent DC or odor. 3. the decubitus ulcer in the R buttock fold is liang. The base of the wound is beefy red. There is no purulent DC and no odor......no evidence of infection. WE once again debrided the macerated hyperkeratotic tissue and it is much less than 1 month ago. 4. The pressure ulcer on the Left lateral distal LE is liang and there is only a small eschar today and the remainder of the wound bed is beefy red. The Eschar was easily debrided and the surface of the wound was also debrided to decrease the biofilm. 5. I believe nursing mixed up the measurements for the coccyx wound and the chronic wound in the R buttock fold today. Debridement Note Debridement Note Post-Debridement Measurements and Additional Note: Post-Debridement Measurements/Treatment WC - Nurse 1 - General Ulcer Assessment Start: 11/27/20 13:10 Freq: Status: Active Protocol: SHALONDA Activity Type Activity Date Activity User E-Sign Co-Sign Detail Recorded Client Recorded Date Recorded By Document 11/27/20 13:10 DL [id number] 11/27/20 13:20 DL Document 12/04/20 13:13 DL [id number] 12/04/20 13:26 DL 11/27/20 12/04/20 13:10 13:13 WC - Today's Visit Information Type of service Follow-up Visit Follow-up Visit (Physician/IT SYSTEMS ENGINEER (Physician/IT SYSTEMS ENGINEER ) ) Arrival Mode Wheelchair Wheelchair Transfer Assistance None None Patient Identification Verified (Name & Yes Yes ) Patient Requires Transmission-Based No No Precautions Height and Weight Body Mass Index (BMI) 43.4 43.4 BMI Classification Obese Obese Vital Signs Temperature (97.8 F-99.1 F) 97.6 F L 98.5 F Temperature Source Temporal Temporal Pulse Rate (60-100) 116 H 102 H Pulse Location Monitor Monitor Respiratory Rate (12-18) 20 H 20 H Respiratory rate source Observation Observation Blood Pressure (90/60-120/80) 126/84 H 164/86 H Blood Pressure Mean (mm Hg) 98 112 Source Monitor Monitor History Since Last Visit- (Skip if this is Patient's initial visit) Have you changed medications since your No No last visit? Any new allergies or adverse reactions No No Had a fall/change in ADL's that may No No increase risk of falls Signs or symptoms of abuse and/or No No neglect since last visit Have you been in the hospital since your No last visit? Has dressing in place as prescribed Yes Yes Has compression in place as prescribed N/A N/A Has offloadiing in place as prescribed Yes Yes Experienced any changes in pain level or No No management Pain Scale: 0-10 Numeric Is Patient Pain Free? Yes Yes WC - Nurse 1 - General Ulcer Measurement Start: 11/27/20 13:10 Freq: Status: Active Protocol: Activity Type Activity Date Activity User E-Sign Co-Sign Detail Recorded Client Recorded Date Recorded By Document 11/27/20 13:10 DL [id number] 11/27/20 13:20 DL Document 12/04/20 13:13 DL [id number] 12/04/20 13:26 DL 11/27/20 12/04/20 13:10 13:13 Wound Center Nurse 1 #13 coccyx -Current Size (cm) - Length 1 3.7 -Current Size (cm) - Width 1 3.6 -Current Size (cm) - Depth 0.2 0.3 -Total Square Cm 1 13.32 -Photo Taken Yes No -Exudate Amt Small Medium -Exudate Type Serosanguineous Serosanguineous -Wound Margin Thickened & Thickened Rolled Under -Granulation Amt Small (1-33%) Large (67-100%) -Granulation Quality [place] Red -Necrosis Amt Small (1-33%) None Present (0 %) -Necrotic Tissue Type Adherent Slough -Structure Exposed N/A N/A -Texture (Temi-wound Skin Appearance) Scarring Scarring -Moisture (Temi-wound Skin Appearance) Weeping Maceration -Color (Temi-wound Skin Appearance) No Abnormality Rubor -Temperature (Temi-wound Skin No Abnormality No Abnormality Appearance) (Pt Warm) (Pt Warm) -Tenderness on Palpation (Temi-wound No Skin Appearance) -Ulcer Cleansing Wound Cleanser Wound Cleanser -Foul Odor after Cleansing No Yes, Due to Product Use 10. R buttock fold -Current Size (cm) - Length 3.6 0.7 -Current Size (cm) - Width 3.7 0.9 -Current Size (cm) - Depth 0.3 0.2 -Total Square Cm 13.32 0.63 -Photo Taken No No -Exudate Amt Small Small -Exudate Type Serosanguineous Serosanguineous -Wound Margin Thickened Distinct, Outline Attached -Granulation Amt Large (67-100%) Large (67-100%) -Granulation Quality Pale Red -Necrosis Amt None Present (0 Small (1-33%) %) -Necrotic Tissue Type Adherent Slough -Structure Exposed N/A N/A -Texture (Temi-wound Skin Appearance) Scarring Scarring -Moisture (Temi-wound Skin Appearance) No Abnormality No Abnormality -Color (Temi-wound Skin Appearance) No Abnormality No Abnormality -Temperature (Temi-wound Skin No Abnormality No Abnormality Appearance) (Pt Warm) (Pt Warm) -Tenderness on Palpation (Temi-wound No Skin Appearance) -Ulcer Cleansing Wound Cleanser -Foul Odor after Cleansing No 7. L lateral LE -Current Size (cm) - Length 1.9 1.9 -Current Size (cm) - Width 0.9 0.8 -Current Size (cm) - Depth 0.1 0.2 -Total Square Cm 1.71 1.52 -Photo Taken No No -Exudate Amt Small Medium -Exudate Type Serosanguineous Serosanguineous -Wound Margin Distinct, Distinct, Outline Outline Attached Attached -Granulation Amt Small (1-33%) Medium (34-66%) -Granulation Quality [place] Pale,[place] -Necrosis Amt Large (67-100%) Medium (34-66%) -Necrotic Tissue Type Adherent Slough Eschar -Structure Exposed N/A N/A -Texture (Temi-wound Skin Appearance) Scarring Scarring -Moisture (Temi-wound Skin Appearance) No Abnormality No Abnormality -Color (Temi-wound Skin Appearance) Assessed Hemosiderin Staining -Temperature (Temi-wound Skin No Abnormality No Abnormality Appearance) (Pt Warm) (Pt Warm) -Tenderness on Palpation (Temi-wound No No Skin Appearance) -Ulcer Cleansing Rinsed/ Wound Cleanser Irrigated with Saline -Foul Odor after Cleansing No No WC - Nurse 2 - General Ulcer CM Notes Start: 11/27/20 13:10 Freq: Status: Active Protocol: Activity Type Activity Date Activity User E-Sign Co-Sign Detail Recorded Client Recorded Date Recorded By Document 11/27/20 13:26 MW [id number] 11/27/20 13:58 MW 11/27/20 13:26 Wound Center Nurse 2 #13 coccyx -Time 13:43 -Correct Patient Yes -Correct Side, Site, Position Yes -Correct Procedure Yes -Procedure Performed No -Tunneling No -Undermining/Tunneling No -Circular Undermining No -Wound/Ulcer Outcome Not Healed -Ulcer Cleansing Rinsed/ Irrigated with Saline -Foul Odor after Cleansing No -Bioengineered Tissue No -Bleeding Controlled with NA -Offloading No -Treatment Response Procedure Tolerated Well 10. R buttock fold -Time 13:43 -Correct Patient Yes -Correct Side, Site, Position Yes -Correct Procedure Yes -Procedure Performed Yes -Type of Procedure Debridement -Clinical Debridement Subcutaneous -Tissue Removed Subcutaneous -Post Debridement (cm) - Length 2.5 -Post Debridement (cm) - Width 3.0 -Post Debridement (cm) - Depth 1.0 -Total Square (Post) (cm) 7.50 -Area of Debridement (cm) - Length 2.5 -Area of Debridement (cm) - Width 3.0 -Total Square (Area) (cm) 7.50 -Tunneling No -Undermining/Tunneling No -Circular Undermining No -Wound/Ulcer Outcome Not Healed -Ulcer Cleansing Rinsed/ Irrigated with Saline -Foul Odor after Cleansing No -Bioengineered Tissue No -Bleeding Controlled with Pressure -Offloading No -Type of Offloading Surgical Shoe -Debridement - Subq, 1st 20sq cm Yes 7. L lateral LE -Time 13:50 -Correct Patient Yes -Correct Side, Site, Position Yes -Correct Procedure Yes -Procedure Performed Yes -Type of Procedure Debridement -Clinical Debridement Subcutaneous -Tissue Removed Subcutaneous -Post Debridement (cm) - Length 2.5 -Post Debridement (cm) - Width 1.2 -Post Debridement (cm) - Depth 0.1 -Total Square (Post) (cm) 3.00 -Area of Debridement (cm) - Length 2.5 -Area of Debridement (cm) - Width 1.2 -Total Square (Area) (cm) 3.00 -Tunneling No -Undermining/Tunneling No -Circular Undermining No -Wound/Ulcer Outcome Not Healed -Ulcer Cleansing Rinsed/ Irrigated with Saline -Foul Odor after Cleansing No -Bioengineered Tissue No -Bleeding Controlled with Pressure -Offloading No -Treatment Response Procedure Tolerated Well -Debridement - Subq, 1st 20sq cm No Pain Scale: 0-10 Numeric Is Patient Pain Free? Yes WC - Nurse 3 - General Ulcer D/C NN Start: 11/27/20 13:10 Freq: Status: Active Protocol: Activity Type Activity Date Activity User E-Sign Co-Sign Detail Recorded Client Recorded Date Recorded By Document 11/27/20 13:59 MW [id number] 11/27/20 14:01 MW 11/27/20 13:59 Wound Care Nurse 3 #13 coccyx -Ulcer Cleansing Rinsed/ Irrigated with Saline -Foul Odor after Cleansing No -Negative Pressure Wound Therapy N/A -Primary Dressing Applied Fibracol Plus 4x4,Mepilex Border -Fibracol Plus 4x4 1 -Mepilex Border 1 10. R buttock fold -Ulcer Cleansing Rinsed/ Irrigated with Saline -Foul Odor after Cleansing No -Negative Pressure Wound Therapy N/A -Primary Dressing Applied Mepilex Border -Other Dressing fibracol plus -Mepilex Border 1 7. L lateral LE -Ulcer Cleansing Rinsed/ Irrigated with Saline -Foul Odor after Cleansing No -Negative Pressure Wound Therapy N/A -Primary Dressing Applied NonAdherent Contact Layer -Other Dressing c.hydrogel -Primary Dressing Covered/Secured with Dry Gauze, Secured with Tape Treatment Response Procedure Tolerated Well Pain Scale: 0-10 Numeric Is Patient Pain Free? Yes Teaching: Wound Center Dressing Your Wound -Person Taught Patient -Teaching Method Discussion -Response to teaching Verbalize understanding WC - Visit Discharge Discharge Condition Stable Ambulatory Status Ambulatory Transportation Private Auto Accompanied by self Medication Reconcilliation completed & No provided to patient/care provider Clinical Summary of Care Provided Yes Wound debrided: R buttock fold. Laterality: Right Wound Grade/Stage: stage 3 Type of Debridement: Excisional debridement Anesthesia Used: 4% Lidocaine Solution Depth: Down to and including healthy tissue and to muscle Percentage of wound debrided: 100 Instrument Used: #15 blade and Forceps Amount of bleeding with debridement: Moderate Bleeding Controlled with: Pressure and Silver Nitrate Operative Diagnosis: non-healing stage 3 decubitus ulcer of the R buttock fold Additional Wound Wound debrided: left lateral distal leg pressure ulcer which is stage 2 Laterality: Left Wound Grade/Stage: stage 2 Type of Debridement: Excisional debridement Anesthesia Used: 4% Lidocaine Solution Depth: Down to and including healthy tissue and in the subcutaneous layer Percentage of wound debrided: 100 Instrument Used: 3mm curette, #15 blade and Forceps Severity: Fat Layer Exposed Amount of bleeding with debridement: Mild Bleeding Controlled with: Pressure Patient tolerated procedure: Patient tolerated procedure well Operative Diagnosis: non-healing stage 2 decubitus ulcer Additional Wound Wound debrided: coccyx wound Wound Grade/Stage: stage 2 Tissue Removed: no debridement of this wound was done today
== END 2020-12-17 23:59 ==
LOC: WC 13:00
PROVIDERS: Family Provider Internal Medicine; PCP Internal Medicine; Referring Provider Nurse Practitioner Family; Visit Provider Internal Medicine
DX: L89.313 Pressure ulcer of right buttock, stage 3 (principal); L89.152 Pressure ulcer of sacral region, stage 2; L89.892 Pressure ulcer of other site, stage 2; G82.20 Paraplegia, unspecified; E11.9 Type 2 diabetes mellitus without complications; N39.0 Urinary tract infection, site not specified; K61.1 Rectal abscess; K64.4 Residual hemorrhoidal skin tags; K64.8 Other hemorrhoids; Z99.3 Dependence on wheelchair
CPT/HCPCS: 11042; 87070; 87075; 87077; 87186; 87205

== ENCOUNTER 2021-01-15 13:15 | Outpatient (RCR) | payer MEDICARE, SELFPAY ==
[2020-12-18 00:12] VITALS: BP 164/86; PULSE 102; RESP 20; TEMP 36.9
[2020-12-18 13:08] VITALS: BP 147/74; PULSE 102; RESP 18; TEMP 36.5; BMI 43.4
--- NOTE | 2020-12-18 14:41 | PCM.WC.PN ---
History of Present Illness Date of Service: 12/18/20 Chief Complaint: Ulcer on left posterior heel, left lateral leg and right and left gluteal fold, temi-rectal ulcer and sacral ulcer History of Wound: Adiel is a 34 year old male who is wheelchair bound and paraplegic. [facility] areas he is presenting for evaluation today. He has had his current ulcers for over 2 months. He has been treating the areas with silvercell dressings and recently was placed on an antibiotic by his PCP. The left lower leg ulcers appear to be from pressure. He is unsure of how they developed. His ulcers on his sacrum and right buttock are from pressure and friction from transferring from his wheelchair to chair with his slide board. He also has an area that was from a temi-rectal abscess that is still open and draining. He reports that he is independent in his ADL's but does have a nurse that comes to care for him daily in the morning for a short time daily. He has a history of Type 2 DM, last A1C 7.0% on 12/20/2019. He has been seen at both our wound healing center and [facility] in [place] in the past for previous uclers. He has previously received Apligraf to his ulcers of his lower legs but the last application was probably 9 months ago. The patient denies any fever, chills, nausea, vomiting, or diarrhea. Denies any signs of infection, including increasing pain, redness, swelling, or drainage from affected area. Subjective Subjective The date of this encounter is 12/18/20. Zak denies any fevers, chills or sweats. He had diarrhea last week which he attributes to the antibiotic and this has resolved. He tells me that he was sitting in his WC a lot last week......way more than usual. He denies pain. Denies any more hemorrhoidal bleeding. He denies any significant DC from the wounds. Objective Data Objective Data Vital Signs: Vital Signs Temp Pulse Resp BP 97.7 F L 102 H 18 147/74 H 12/18/20 13:08 12/18/20 13:08 12/18/20 13:08 12/18/20 13:08 Weight: 330 lb Body Mass Index (BMI) 43.4 Charges/Coding Procedures Integumentary [id number]: [id number] Mylene subq tissue 20 sq cm/< Physical Exam Const alert, oriented x3 and no apparent distress General Appearance: cooperative Skin Rashes: no rashes Wounds: wounds noted Wound Narrative: There is very dry skin around the wounds on the backside and also on both buttocks. There are a few additional small openings in the skin over the buttocks, coccyx and also the left upper thigh. They are less than a cm. No evidence of infection. No undermining and no tunnelling. No odor and there is no purulent DC. The wound on the LLE is moist with no purulent DC and no periwound erythema. There is no increased warmth to touch in the area. There is no undermining and no tunneling. No odor. Debridement Note Debridement Note Post-Debridement Measurements and Additional Note: Post-Debridement Measurements/Treatment - Nurse 1 - General Ulcer Assessment Start: 12/18/20 13:08 Freq: Status: Active Protocol: RONAL.ROZ Activity Type Activity Date Activity User E-Sign Co-Sign Detail Recorded Client Recorded Date Recorded By Document 12/18/20 13:08 [id number] 12/18/20 13:19 CHARLI 12/18/20 13:08 - Today's Visit Information Type of service Follow-up Visit (Physician/[employer] ) Arrival Mode Wheelchair Transfer Assistance Manual Patient Identification Verified (Name & Yes ) Patient Requires Transmission-Based No Precautions Height and Weight Body Mass Index (BMI) 43.4 BMI Classification Obese Vital Signs Temperature (97.8 F-99.1 F) 97.7 F L Temperature Source Temporal Pulse Rate (60-100) 102 H Pulse Location Monitor Respiratory Rate (12-18) 18 Respiratory rate source Observation Blood Pressure (90/60-120/80) 147/74 H Blood Pressure Mean (mm Hg) 98 Source Manual Position Sitting Blood Pressure Location Left Arm History Since Last Visit- (Skip if this is Patient's initial visit) Have you changed medications since your No last visit? Any new allergies or adverse reactions No Had a fall/change in ADL's that may No increase risk of falls Signs or symptoms of abuse and/or No neglect since last visit Have you been in the hospital since your No last visit? Has dressing in place as prescribed Yes Has compression in place as prescribed N/A Has offloadiing in place as prescribed No Experienced any changes in pain level or No management Left Footwear Regular Shoe Right Footwear Regular Shoe Pain Scale: 0-10 Numeric Is Patient Pain Free? Yes - Nurse 1 - General Ulcer Measurement Start: 12/18/20 13:08 Freq: Status: Active Protocol: Activity Type Activity Date Activity User E-Sign Co-Sign Detail Recorded Client Recorded Date Recorded By Document 12/18/20 13:08 CHARLI [id number] 12/18/20 13:19 CHARLI 12/18/20 13:08 Wound Center Nurse 1 #14 coccyx -Combined with other wound No -Current Size (cm) - Length 0.9 -Current Size (cm) - Width 0.5 -Current Size (cm) - Depth 0.2 -Total Square Cm 0.45 -Photo Taken No -Epithelialization Small 1-33% -Tunneling No -Undermining/Tunneling No -Classification - Thickness Partial Thickness -Exudate Type Serosanguineous -Wound Margin Flat & Intact -Granulation Amt Medium (34-66%) -Granulation Quality Red -Slough/Fibrin Yes -Necrosis Amt Small (1-33%) -Necrotic Tissue Type Adherent Slough -Structure Exposed N/A -Texture (Temi-wound Skin Appearance) Assessed -Moisture (Temi-wound Skin Appearance) Assessed,Dry/ Scaly -Color (Temi-wound Skin Appearance) Assessed -Temperature (Temi-wound Skin No Abnormality Appearance) (Pt Warm) -Tenderness on Palpation (Temi-wound No Skin Appearance) -Ulcer Cleansing Rinsed/ Irrigated with Saline -Foul Odor after Cleansing No 10. R buttock fold -Combined with other wound No -Current Size (cm) - Length 3.4 -Current Size (cm) - Width 3.9 -Current Size (cm) - Depth 0.3 -Total Square Cm 13.26 -Photo Taken No -Epithelialization None Present -Tunneling No -Undermining/Tunneling No -Circular Undermining No -Exudate Amt Medium -Exudate Type Serosanguineous -Wound Margin Flat & Intact -Granulation Amt Large (67-100%) -Granulation Quality Red -Slough/Fibrin Yes -Necrosis Amt Small (1-33%) -Necrotic Tissue Type Adherent Slough -Structure Exposed N/A -Texture (Temi-wound Skin Appearance) Assessed, Excoriation, Friable -Moisture (Temi-wound Skin Appearance) Assessed -Color (Temi-wound Skin Appearance) Assessed -Temperature (Temi-wound Skin No Abnormality Appearance) (Pt Warm) -Tenderness on Palpation (Temi-wound No Skin Appearance) -Ulcer Cleansing Rinsed/ Irrigated with Saline 7. L lateral LE -Combined with other wound No -Current Size (cm) - Length 2.5 -Current Size (cm) - Width 1.2 -Current Size (cm) - Depth 0.2 -Total Square Cm 3.00 -Photo Taken No -Epithelialization Small 1-33% -Tunneling No -Undermining/Tunneling No -Circular Undermining No -Exudate Amt Small -Exudate Type Serosanguineous -Wound Margin Flat & Intact -Granulation Amt Large (67-100%) -Granulation Quality Red -Slough/Fibrin Yes -Necrosis Amt Small (1-33%) -Necrotic Tissue Type Adherent Slough -Structure Exposed None/Limited to Skin Breakdown -Texture (Temi-wound Skin Appearance) Assessed -Moisture (Temi-wound Skin Appearance) Assessed,Dry/ Scaly -Color (Temi-wound Skin Appearance) Assessed -Temperature (Temi-wound Skin No Abnormality Appearance) (Pt Warm) -Tenderness on Palpation (Temi-wound No Skin Appearance) -Ulcer Cleansing Rinsed/ Irrigated with Saline -Foul Odor after Cleansing No Lower Limb Edema Present NA WC - Nurse 2 - General Ulcer CM Notes Start: 12/18/20 13:08 Freq: Status: Active Protocol: Activity Type Activity Date Activity User E-Sign Co-Sign Detail Recorded Client Recorded Date Recorded By Document 12/18/20 13:22 MW [id number] 12/18/20 13:40 MW 12/18/20 13:22 Wound Center Nurse 2 #14 coccyx -Time 13:22 -Correct Patient Yes -Correct Side, Site, Position Yes -Correct Procedure Yes -Procedure Performed Yes -Type of Procedure Debridement -Clinical Debridement Subcutaneous -Tissue Removed Subcutaneous -Post Debridement (cm) - Length 1.0 -Post Debridement (cm) - Width 0.5 -Post Debridement (cm) - Depth 0.2 -Total Square (Post) (cm) 0.50 -Area of Debridement (cm) - Length 1.0 -Area of Debridement (cm) - Width 0.5 -Total Square (Area) (cm) 0.50 -Tunneling No -Undermining/Tunneling No -Circular Undermining No -Wound/Ulcer Outcome Not Healed -Ulcer Cleansing Rinsed/ Irrigated with Saline -Foul Odor after Cleansing No -Bioengineered Tissue No -Bleeding Controlled with Pressure -Offloading No -Treatment Response Procedure Tolerated Well -Debridement - Subq, 1st 20sq cm Yes 10. R buttock fold -Time 13:26 -Correct Patient Yes -Correct Side, Site, Position Yes -Correct Procedure Yes -Procedure Performed Yes -Type of Procedure Debridement -Clinical Debridement Subcutaneous -Tissue Removed Subcutaneous -Post Debridement (cm) - Length 3.5 -Post Debridement (cm) - Width 4.0 -Post Debridement (cm) - Depth 0.3 -Total Square (Post) (cm) 14.00 -Area of Debridement (cm) - Length 3.5 -Area of Debridement (cm) - Width 4.0 -Total Square (Area) (cm) 14.00 -Tunneling No -Undermining/Tunneling No -Circular Undermining No -Wound/Ulcer Outcome Not Healed -Ulcer Cleansing Rinsed/ Irrigated with Saline -Foul Odor after Cleansing No -Bioengineered Tissue No -Bleeding Controlled with Pressure -Offloading No -Treatment Response Procedure Tolerated Well -Debridement - Subq, 1st 20sq cm No 7. L lateral LE -Time 13:26 -Correct Patient Yes -Correct Side, Site, Position Yes -Correct Procedure Yes -Procedure Performed Yes -Type of Procedure Debridement -Clinical Debridement Subcutaneous -Tissue Removed Subcutaneous -Post Debridement (cm) - Length 2.5 -Post Debridement (cm) - Width 1.2 -Post Debridement (cm) - Depth 0.2 -Total Square (Post) (cm) 3.00 -Area of Debridement (cm) - Length 2.5 -Area of Debridement (cm) - Width 1.2 -Total Square (Area) (cm) 3.00 -Tunneling No -Undermining/Tunneling No -Circular Undermining No -Wound/Ulcer Outcome Healed- Surgical Closure -Ulcer Cleansing Rinsed/ Irrigated with Saline -Foul Odor after Cleansing No -Bioengineered Tissue No -Bleeding Controlled with Pressure -Offloading No -Treatment Response Procedure Tolerated Well -Debridement - Subq, 1st 20sq cm No Pain Scale: 0-10 Numeric Is Patient Pain Free? Yes WC - Nurse 3 - General Ulcer D/C NN Start: 12/18/20 13:08 Freq: Status: Active Protocol: Activity Type Activity Date Activity User E-Sign Co-Sign Detail Recorded Client Recorded Date Recorded By Document 12/18/20 13:40 MW [id number] 12/18/20 13:44 MW 12/18/20 13:40 Wound Care Nurse 3 #14 coccyx -Ulcer Cleansing Rinsed/ Irrigated with Saline -Foul Odor after Cleansing No -Negative Pressure Wound Therapy N/A -Primary Dressing Applied Fibracol Plus 4x4,Mepilex Border -Fibracol Plus 4x4 1 -Mepilex Border 1 10. R buttock fold -Ulcer Cleansing Rinsed/ Irrigated with Saline -Foul Odor after Cleansing No -Negative Pressure Wound Therapy N/A -Primary Dressing Applied Mepilex Border -Other Dressing fibracol plus -Mepilex Border 1 7. L lateral LE -Ulcer Cleansing Rinsed/ Irrigated with Saline -Foul Odor after Cleansing No -Negative Pressure Wound Therapy N/A -Other Dressing c. hydrogel -Primary Dressing Covered/Secured with Dry Gauze, Secured with Tape Treatment Response Procedure Tolerated Well Pain Scale: 0-10 Numeric Is Patient Pain Free? Yes Teaching: Wound Center Dressing Your Wound -Person Taught Patient -Teaching Method Discussion, Demonstration -Response to teaching Verbalize understanding WC - Visit Discharge Ambulatory Status Wheelchair Transportation Private Auto Accompanied by self Medication Reconcilliation completed & No provided to patient/care provider Clinical Summary of Care Provided Yes Wound debrided: Decubitus ulcer right buttock fold Laterality: Right Wound Grade/Stage: 3 Type of Debridement: Excisional debridement Anesthesia Used: 4% Lidocaine Solution Depth: Down to and including healthy tissue and in the subcutaneous layer Percentage of wound debrided: 100 Instrument Used: 5mm curette, #15 blade and Forceps Tissue Removed: Hyperkeratotic/macerated skin along with biofilm and areas of slough. Severity: Fat Layer Exposed Amount of bleeding with debridement: Moderate Bleeding Controlled with: Pressure Patient tolerated procedure: Patient tolerated procedure well Operative Diagnosis: Nonhealing stage III decubitus ulcer right buttock fold Additional Wound Wound debrided: Left lateral lower leg Laterality: Left Wound Grade/Stage: Stage II Type of Debridement: Excisional debridement Anesthesia Used: 4% Lidocaine Solution Depth: Down to and including healthy tissue and in the subcutaneous layer Percentage of wound debrided: 100 Instrument Used: 3mm curette and Forceps Severity: Fat Layer Exposed Amount of bleeding with debridement: Mild Bleeding Controlled with: Pressure Patient tolerated procedure: Patient tolerated procedure well Operative Diagnosis: Nonhealing stage II decubitus ulcer left leg Additional Wound Wound debrided: Coccyx wound Laterality: Not Applicable Wound Grade/Stage: Stage II Type of Debridement: Excisional debridement Depth: Down to and including healthy tissue and in the subcutaneous layer Percentage of wound debrided: 100 Instrument Used: 3mm curette Tissue Removed: Biofilm/slough Severity: Limited To Skin Breakdown Amount of bleeding with debridement: Mild Bleeding Controlled with: Pressure Patient tolerated procedure: Patient tolerated procedure well Operative Diagnosis: Nonhealing stage II decubitus ulcer of the coccyx Assessment/Plan Assessment/Plan (1) Decubitus ulcer, stage 3: CODE(S): L89.93 - Pressure ulcer of unspecified site, stage 3 QUALIFIERS: Pressure injury location: buttock Laterality: right Qualified Code(s): L89.313 - Pressure ulcer of right buttock, stage 3 (2) Pressure ulcer of left leg, stage 2: CODE(S): L89.892 - Pressure ulcer of other site, stage 2 (3) Decubitus ulcer, stage 2: CODE(S): L89.92 - Pressure ulcer of unspecified site, stage 2 QUALIFIERS: Pressure injury location: sacral region Qualified Code(s): L89.152 - Pressure ulcer of sacral region, stage 2 PLAN: 1. The depth of the stage 3 ulcer has steadily been decreasing. The base is beefy red and there is no infections. Will apply for Theraskin to cover the wound of the R buttock fold. Continue the Fibracol for now. Will also continue the Fibracol over the coccyx wound. 2. Continue the Hydrogel over the Left leg wound to keep it moist. 3. Reinforced with him the need to stay off his backside if it is ever going to heal. 4. moisturized both buttocks and the sacrococcygeal area and the skin looked much better afterwards and he is going to continue this at home. Reminded him that cracks in dry skin lead to wounds and cellulitis.
[2020-12-25 13:49] VITALS: BP 144/87; PULSE 97; RESP 16; TEMP 36.7; BMI 43.4
--- NOTE | 2020-12-25 16:28 | PN.PCM_ITS ---
History of Present Illness Date of Service: 12/25/20 Chief Complaint: Ulcer on left posterior heel, left lateral leg and right and left gluteal fold, temi-rectal ulcer and sacral ulcer History of Wound: Adiel is a 34 year old male who is wheelchair bound and paraplegic. [facility] areas he is presenting for evaluation today. He has had his current ulcers for over 2 months. He has been treating the areas with silvercell dressings and recently was placed on an antibiotic by his PCP. The left lower leg ulcers appear to be from pressure. He is unsure of how they developed. His ulcers on his sacrum and right buttock are from pressure and friction from transferring from his wheelchair to chair with his slide board. He also has an area that was from a temi-rectal abscess that is still open and draining. He reports that he is independent in his ADL's but does have a nurse that comes to care for him daily in the morning for a short time daily. He has a history of Type 2 DM, last A1C 7.0% on 12/20/2019. He has been seen at both our wound healing center and [facility] in [place] in the past for previous uclers. He has previously received Apligraf to his ulcers of his lower legs but the last application was probably 9 months ago. The patient denies any fever, chills, nausea, vomiting, or diarrhea. Denies any signs of infection, including increasing pain, redness, swelling, or drainage from affected area. Nicki Crespo returns to the [facility] for a follow up visit on the decubitus ulcer involving the The lower buttock and fold beneath the buttock. He denies F/C/S/pain. He has had no further hemorrhoidal bleeding. The wound on the buttock is being treated with Fibracol Plus and a Mepilex covering. The wound on the left lateral leg is dressed with Hydrogel and a dry gauze dressing. He tells me that he was not sitting in his chair quite as much as the preceding weak. Objective Data Objective Data Vital Signs: Vital Signs Temp Pulse Resp BP 98.1 F 97 16 144/87 H 12/25/20 13:49 12/25/20 13:49 12/25/20 13:49 12/25/20 13:49 Oxygen Delivery Method Room Air Weight: 330 lb Body Mass Index (BMI) 43.4 Charges/Coding Procedures Integumentary 111xxx-113xx: [id number] Mylene subq tissue 20 sq cm/< (X 2 wounds) Physical Exam Skin Wounds: wounds noted Wound Narrative: The wound over the coccyx is healed. The wound involving the R buttock fold continues to contract and fill in. There is still macerated white hyperkeratotic folds of skin which we debride weekly. I suspect this is due to the fact that he does not off load as instructed and he spends many hours a day sitting in his wheelchair sweating. There is no tunnelling and no undermining of either wound. There is no odor and no purulent DC. The buttock has beefy red granulation tissue in the center of the wound and the left lateral leg wound has a biofilm but is otherwise red and granulating. There is no erythema or increased warmth to touch around the wound. Debridement Note Debridement Note Post-Debridement Measurements and Additional Note: Post-Debridement Measurements/Treatment - Nurse 1 - General Ulcer Assessment Start: 12/18/20 13:08 Freq: Status: Active Protocol: .LOWEXT Activity Type Activity Date Activity User E-Sign Co-Sign Detail Recorded Client Recorded Date Recorded By Document 12/18/20 13:08 [id number] 12/18/20 13:19 Document 12/25/20 13:49 [facility] [id number] 12/25/20 14:03 [facility] 12/18/20 12/25/20 13:08 13:49 - Today's Visit Information Type of service Follow-up Visit Follow-up Visit (Physician/VENETIAN BLIND MAKER (Physician/VENETIAN BLIND MAKER ) ) Arrival Mode Wheelchair Wheelchair Transfer Assistance Manual Transfer Board Patient Identification Verified (Name & Yes Yes ) Patient Requires Transmission-Based No No Precautions Height and Weight Body Mass Index (BMI) 43.4 43.4 BMI Classification Obese Obese Vital Signs Temperature (97.8 F-99.1 F) 97.7 F L 98.1 F Temperature Source Temporal Temporal Pulse Rate (60-100) 102 H 97 Pulse Location Monitor Monitor Respiratory Rate (12-18) 18 16 Respiratory rate source Observation Observation Oxygen Delivery Method Room Air Blood Pressure (90/60-120/80) 147/74 H 144/87 H Blood Pressure Mean (mm Hg) 98 106 Source Manual Monitor Position Sitting Sitting Blood Pressure Location Left Arm Right Arm History Since Last Visit- (Skip if this is Patient's initial visit) Have you changed medications since your No No last visit? Any new allergies or adverse reactions No No Had a fall/change in ADL's that may No No increase risk of falls Signs or symptoms of abuse and/or No No neglect since last visit Have you been in the hospital since your No No last visit? Has dressing in place as prescribed Yes Yes Has compression in place as prescribed N/A N/A Has offloadiing in place as prescribed No N/A Experienced any changes in pain level or No No management Left Footwear Regular Shoe Regular Shoe Right Footwear Regular Shoe Regular Shoe Pain Scale: 0-10 Numeric Is Patient Pain Free? Yes Yes WC - Nurse 1 - General Ulcer Measurement Start: 12/18/20 13:08 Freq: Status: Active Protocol: Activity Type Activity Date Activity User E-Sign Co-Sign Detail Recorded Client Recorded Date Recorded By Document 12/18/20 13:08 [id number] 12/18/20 13:19 Document 12/25/20 13:49 [facility] [id number] 12/25/20 14:03 [facility] 12/18/20 12/25/20 13:08 13:49 Wound Center Nurse 1 #14 coccyx -Combined with other wound No No -Current Size (cm) - Length 0.9 0.1 -Current Size (cm) - Width 0.5 0.1 -Current Size (cm) - Depth 0.2 0.1 -Total Square Cm 0.45 0.01 -Photo Taken No -Epithelialization Small 1-33% Large 67-100% -Tunneling No -Undermining/Tunneling No -Classification - Thickness Partial Thickness -Exudate Type Serosanguineous -Wound Margin Flat & Intact -Granulation Amt Medium (34-66%) -Granulation Quality Red -Slough/Fibrin Yes -Necrosis Amt Small (1-33%) -Necrotic Tissue Type Adherent Slough -Structure Exposed N/A -Texture (Temi-wound Skin Appearance) Assessed Assessed, Scarring -Moisture (Temi-wound Skin Appearance) Assessed,Dry/ Assessed Scaly -Color (Temi-wound Skin Appearance) Assessed Assessed -Temperature (Temi-wound Skin No Abnormality Appearance) (Pt Warm) -Tenderness on Palpation (Temi-wound No Skin Appearance) -Ulcer Cleansing Rinsed/ Irrigated with Saline -Foul Odor after Cleansing No 10. R buttock fold -Combined with other wound No No -Current Size (cm) - Length 3.4 3.1 -Current Size (cm) - Width 3.9 4.1 -Current Size (cm) - Depth 0.3 0.3 -Total Square Cm 13.26 12.71 -Photo Taken No No -Epithelialization None Present None Present -Tunneling No No -Undermining/Tunneling No No -Circular Undermining No No -Exudate Amt Medium Large -Exudate Type Serosanguineous Serosanguineous -Wound Margin Flat & Intact Distinct, Outline Attached -Granulation Amt Large (67-100%) Large (67-100%) -Granulation Quality Red Red -Slough/Fibrin Yes Yes -Necrosis Amt Small (1-33%) Small (1-33%) -Necrotic Tissue Type Adherent Slough Adherent Slough -Structure Exposed N/A -Texture (Temi-wound Skin Appearance) Assessed, Assessed, Excoriation, Scarring Friable -Moisture (Temi-wound Skin Appearance) Assessed Assessed, Maceration -Color (Temi-wound Skin Appearance) Assessed Assessed -Temperature (Temi-wound Skin No Abnormality No Abnormality Appearance) (Pt Warm) (Pt Warm) -Tenderness on Palpation (Temi-wound No No Skin Appearance) -Ulcer Cleansing Rinsed/ Rinsed/ Irrigated with Irrigated with Saline Saline -Foul Odor after Cleansing No 7. L lateral LE -Combined with other wound No No -Current Size (cm) - Length 2.5 2.6 -Current Size (cm) - Width 1.2 1.4 -Current Size (cm) - Depth 0.2 0.2 -Total Square Cm 3.00 3.64 -Photo Taken No No -Epithelialization Small 1-33% None Present -Tunneling No No -Undermining/Tunneling No No -Circular Undermining No No -Exudate Amt Small Medium -Exudate Type Serosanguineous Serosanguineous -Wound Margin Flat & Intact Distinct, Outline Attached -Granulation Amt Large (67-100%) Large (67-100%) -Granulation Quality Red Red -Slough/Fibrin Yes Yes -Necrosis Amt Small (1-33%) Small (1-33%) -Necrotic Tissue Type Adherent Slough Adherent Slough -Structure Exposed None/Limited to Skin Breakdown -Texture (Temi-wound Skin Appearance) Assessed Assessed, Scarring -Moisture (Temi-wound Skin Appearance) Assessed,Dry/ Assessed,Dry/ Scaly Scaly -Color (Temi-wound Skin Appearance) Assessed Assessed -Temperature (Temi-wound Skin No Abnormality No Abnormality Appearance) (Pt Warm) (Pt Warm) -Tenderness on Palpation (Temi-wound No No Skin Appearance) -Ulcer Cleansing Rinsed/ Rinsed/ Irrigated with Irrigated with Saline Saline -Foul Odor after Cleansing No No Lower Limb Edema Present NA WC - Nurse 2 - General Ulcer CM Notes Start: 12/18/20 13:08 Freq: Status: Active Protocol: Activity Type Activity Date Activity User E-Sign Co-Sign Detail Recorded Client Recorded Date Recorded By Document 12/18/20 13:22 MW [id number] 12/18/20 13:40 MW Document 12/25/20 14:51 MW [id number] 12/25/20 14:54 MW 12/18/20 12/25/20 13:22 14:51 Wound Center Nurse 2 #14 coccyx -Time 13:22 14:53 -Correct Patient Yes Yes -Correct Side, Site, Position Yes Yes -Correct Procedure Yes Yes -Procedure Performed Yes No -Type of Procedure Debridement -Clinical Debridement Subcutaneous -Tissue Removed Subcutaneous -Post Debridement (cm) - Length 1.0 -Post Debridement (cm) - Width 0.5 -Post Debridement (cm) - Depth 0.2 -Total Square (Post) (cm) 0.50 -Area of Debridement (cm) - Length 1.0 -Area of Debridement (cm) - Width 0.5 -Total Square (Area) (cm) 0.50 -Tunneling No -Undermining/Tunneling No -Circular Undermining No -Wound/Ulcer Outcome Not Healed Healed- Epithelialized -Ulcer Cleansing Rinsed/ Irrigated with Saline -Foul Odor after Cleansing No -Bioengineered Tissue No -Bleeding Controlled with Pressure -Offloading No -Treatment Response Procedure Tolerated Well -Debridement - Subq, 1st 20sq cm Yes 10. R buttock fold -Time 13:26 14:53 -Correct Patient Yes Yes -Correct Side, Site, Position Yes Yes -Correct Procedure Yes Yes -Procedure Performed Yes Yes -Type of Procedure Debridement Debridement -Clinical Debridement Subcutaneous Subcutaneous -Tissue Removed Subcutaneous Subcutaneous -Post Debridement (cm) - Length 3.5 3.0 -Post Debridement (cm) - Width 4.0 2.8 -Post Debridement (cm) - Depth 0.3 0.3 -Total Square (Post) (cm) 14.00 8.40 -Area of Debridement (cm) - Length 3.5 3.0 -Area of Debridement (cm) - Width 4.0 2.8 -Total Square (Area) (cm) 14.00 8.40 -Tunneling No No -Undermining/Tunneling No No -Circular Undermining No No -Wound/Ulcer Outcome Not Healed Not Healed -Ulcer Cleansing Rinsed/ Rinsed/ Irrigated with Irrigated with Saline Saline -Foul Odor after Cleansing No No -Bioengineered Tissue No No -Bleeding Controlled with Pressure Pressure -Offloading No No -Treatment Response Procedure Procedure Tolerated Well Tolerated Well -Debridement - Subq, 1st 20sq cm No Yes 7. L lateral LE -Time 13:26 14:54 -Correct Patient Yes Yes -Correct Side, Site, Position Yes Yes -Correct Procedure Yes Yes -Procedure Performed Yes Yes -Type of Procedure Debridement Debridement -Clinical Debridement Subcutaneous Subcutaneous -Tissue Removed Subcutaneous Subcutaneous -Post Debridement (cm) - Length 2.5 2.6 -Post Debridement (cm) - Width 1.2 1.5 -Post Debridement (cm) - Depth 0.2 0.2 -Total Square (Post) (cm) 3.00 3.90 -Area of Debridement (cm) - Length 2.5 2.6 -Area of Debridement (cm) - Width 1.2 1.5 -Total Square (Area) (cm) 3.00 3.90 -Tunneling No No -Undermining/Tunneling No No -Circular Undermining No No -Wound/Ulcer Outcome Healed- Not Healed Surgical Closure -Ulcer Cleansing Rinsed/ Rinsed/ Irrigated with Irrigated with Saline Saline -Foul Odor after Cleansing No No -Bioengineered Tissue No No -Bleeding Controlled with Pressure Pressure -Offloading No No -Treatment Response Procedure Procedure Tolerated Well Tolerated Well -Debridement - Subq, 1st 20sq cm No No Pain Scale: 0-10 Numeric Is Patient Pain Free? Yes Yes WC - Nurse 3 - General Ulcer D/C NN Start: 12/18/20 13:08 Freq: Status: Active Protocol: Activity Type Activity Date Activity User E-Sign Co-Sign Detail Recorded Client Recorded Date Recorded By Document 12/18/20 13:40 MW [id number] 12/18/20 13:44 MW Document 12/25/20 14:56 MW [id number] 12/25/20 14:57 MW 12/18/20 12/25/20 13:40 14:56 Wound Care Nurse 3 #14 coccyx -Ulcer Cleansing Rinsed/ Irrigated with Saline -Foul Odor after Cleansing No -Negative Pressure Wound Therapy N/A -Primary Dressing Applied Fibracol Plus 4x4,Mepilex Border -Fibracol Plus 4x4 1 -Mepilex Border 1 10. R buttock fold -Ulcer Cleansing Rinsed/ Rinsed/ Irrigated with Irrigated with Saline Saline -Foul Odor after Cleansing No No -Negative Pressure Wound Therapy N/A N/A -Primary Dressing Applied Mepilex Border Fibracol Plus 4x4,Mepilex Border -Other Dressing fibracol plus -Fibracol Plus 4x4 1 -Mepilex Border 1 1 7. L lateral LE -Ulcer Cleansing Rinsed/ Rinsed/ Irrigated with Irrigated with Saline Saline -Foul Odor after Cleansing No No -Negative Pressure Wound Therapy N/A N/A -Primary Dressing Applied NonAdherent Contact Layer -Other Dressing c. hydrogel c.Hydrogel -Primary Dressing Covered/Secured with Dry Gauze, Dry Gauze, Secured with Secured with Tape Tape Treatment Response Procedure Procedure Tolerated Well Tolerated Well Pain Scale: 0-10 Numeric Is Patient Pain Free? Yes Yes Teaching: Wound Center Dressing Your Wound -Person Taught Patient Patient -Teaching Method Discussion, Discussion Demonstration -Response to teaching Verbalize Verbalize understanding understanding WC - Visit Discharge Discharge Condition Stable Ambulatory Status Wheelchair Wheelchair Transportation Private Auto Private Auto Accompanied by self self Medication Reconcilliation completed & No No provided to patient/care provider Clinical Summary of Care Provided Yes Yes Additional Wound Wound debrided: R buttock fod Wound Grade/Stage: stage 3 Type of Debridement: Excisional debridement Depth: Down to and including healthy tissue and in the subcutaneous layer Percentage of wound debrided: 100 Instrument Used: #15 blade and Forceps Amount of bleeding with debridement: Mild Bleeding Controlled with: Compression and gauze Patient tolerated procedure: Patient tolerated procedure well Additional Wound Wound debrided: Left lateral leg Wound Grade/Stage: 2 Type of Debridement: Excisional debridement Depth: Down to and including healthy tissue and in the subcutaneous layer Percentage of wound debrided: 100 Instrument Used: 3mm curette Bleeding Controlled with: Compression and gauze Patient tolerated procedure: Patient tolerated procedure well Assessment/Plan Assessment/Plan (1) Pressure ulcer of left leg, stage 2: CODE(S): L89.892 - Pressure ulcer of other site, stage 2 (2) Decubitus ulcer, stage 3: CODE(S): L89.93 - Pressure ulcer of unspecified site, stage 3 QUALIFIERS: Pressure injury location: buttock Laterality: right Qualified Code(s): L89.313 - Pressure ulcer of right buttock, stage 3 (3) Paraplegia: CODE(S): G82.20 - Paraplegia, unspecified (4) Decubitus ulcer of coccyx, stage 2: CODE(S): L89.152 - Pressure ulcer of sacral region, stage 2 PLAN: 1. The coccyx wound is healed. 2. The left lateral leg decub is liang and filling in and is 100% granulating. Will continue the Hydrogel and cover with a dry dressing. 3. The R buttock fold decub is filling in and more superficial. The size is liang. There is beefy red granulation tissue present. The maceration and the hyperkeratosis I suspect are due to sliding around on his sliding board and chair and not off loading. I also think that he sweats a lot and this contributes to the maceration. We would like to use [employer] to cover the wound and his insurance will cover but the co-pay will be $285 per application and he is not able to do this. Will continue with the current dressing of Fibracol covered with a Mepilex. RTC in 1 week for a recheck. Off load as much as possible over the next week and avoid sitting for longer than 1 hour at a time.
[2021-01-08 13:52] VITALS: BP 160/98; PULSE 110; TEMP 36.2; BMI 43.4
--- NOTE | 2021-01-08 15:08 | PCM.WC.PN ---
History of Present Illness Date of Service: 01/08/21 Chief Complaint: Ulcer on left posterior heel, left lateral leg and right and left gluteal fold, temi-rectal ulcer and sacral ulcer History of Wound: Adiel is a 34 year old male who is wheelchair bound and paraplegic. [facility] areas he is presenting for evaluation today. He has had his current ulcers for over 2 months. He has been treating the areas with silvercell dressings and recently was placed on an antibiotic by his PCP. The left lower leg ulcers appear to be from pressure. He is unsure of how they developed. His ulcers on his sacrum and right buttock are from pressure and friction from transferring from his wheelchair to chair with his slide board. He also has an area that was from a temi-rectal abscess that is still open and draining. He reports that he is independent in his ADL's but does have a nurse that comes to care for him daily in the morning for a short time daily. He has a history of Type 2 DM, last A1C 7.0% on 12/20/2019. He has been seen at both our wound healing center and [facility] in [place] in the past for previous uclers. He has previously received Apligraf to his ulcers of his lower legs but the last application was probably 9 months ago. The patient denies any fever, chills, nausea, vomiting, or diarrhea. Denies any signs of infection, including increasing pain, redness, swelling, or drainage from affected area. Subjective Subjective Zak tells us that the Fibracol was not working and the wound was getting bigger so he went back to an old product he had at home and does not recall the name of. He denies fever, chills, sweats. He missed last weeks appt because he had diarrhea. Tells me that he has been staying off his backside some. Objective Data Objective Data Vital Signs: Vital Signs Temp Pulse Resp BP 97.2 F L 110 H 16 160/98 H 01/08/21 13:52 01/08/21 13:52 12/25/20 13:49 01/08/21 13:52 Oxygen Delivery Method Room Air Weight: 330 lb Body Mass Index (BMI) 43.4 Charges/Coding Procedures Integumentary [id number]: [id number] Mylene subq tissue 20 sq cm/< Physical Exam Skin Wounds: wounds noted Wound Narrative: 1. The wound on the lateral distal LLE is liang. There is evidence of new epithelialization especially at the proximal end of the wound. There is no periwound Erythema, no purulent discharge and no odor. there is no tunneling and no undermining. 2. There is increased maceration on the wound of the R gluteal fold. There is a foul odor from the wound and there is a thin red/yellow discharge coming from a deeper depression at the inferior pole of the wound. 3. The coccyx wound remains healed. 4. No new wounds Debridement Note Debridement Note Post-Debridement Measurements and Additional Note: Post-Debridement Measurements/Treatment - Nurse 1 - General Ulcer Assessment Start: 12/18/20 13:08 Freq: Status: Active Protocol: CELIAEXHong Activity Type Activity Date Activity User E-Sign Co-Sign Detail Recorded Client Recorded Date Recorded By Document 12/18/20 13:08 [id number] 12/18/20 13:19 Document 12/25/20 13:49 [facility] [id number] 12/25/20 14:03 [facility] Document 01/08/21 13:52 KR [id number] 01/08/21 14:00 KR 12/18/20 12/25/20 01/08/21 13:08 13:49 13:52 - Today's Visit Information Type of service Follow-up Visit Follow-up Visit Follow-up Visit (Physician/CONSULTING MANAGER (Physician/CONSULTING MANAGER (Physician/CONSULTING MANAGER ) ) ) Arrival Mode Wheelchair Wheelchair Wheelchair Transfer Assistance Manual Transfer Board Patient Identification Verified (Name & Yes Yes Yes ) Patient Requires Transmission-Based No No Precautions Height and Weight Body Mass Index (BMI) 43.4 43.4 43.4 BMI Classification Obese Obese Obese Vital Signs Temperature (97.8 F-99.1 F) 97.7 F L 98.1 F 97.2 F L Temperature Source Temporal Temporal Temporal Pulse Rate (60-100) 102 H 97 110 H Pulse Location Monitor Monitor Monitor Respiratory Rate (12-18) 18 16 Respiratory rate source Observation Observation Oxygen Delivery Method Room Air Blood Pressure (90/60-120/80) 147/74 H 144/87 H 160/98 H Blood Pressure Mean (mm Hg) 98 106 118 Source Manual Monitor Monitor Position Sitting Sitting Semi-Fowlers Blood Pressure Location Left Arm Right Arm Right Arm History Since Last Visit- (Skip if this is Patient's initial visit) Have you changed medications since your No No No last visit? Any new allergies or adverse reactions No No No Had a fall/change in ADL's that may No No No increase risk of falls Signs or symptoms of abuse and/or No No No neglect since last visit Have you been in the hospital since your No No No last visit? Has dressing in place as prescribed Yes Yes Yes Has compression in place as prescribed N/A N/A N/A Has offloadiing in place as prescribed No N/A N/A Experienced any changes in pain level or No No No management Left Footwear Regular Shoe Regular Shoe Regular Shoe Right Footwear Regular Shoe Regular Shoe Regular Shoe Pain Scale: 0-10 Numeric Is Patient Pain Free? Yes Yes Yes WC - Nurse 1 - General Ulcer Measurement Start: 12/18/20 13:08 Freq: Status: Active Protocol: Activity Type Activity Date Activity User E-Sign Co-Sign Detail Recorded Client Recorded Date Recorded By Document 12/18/20 13:08 [id number] 12/18/20 13:19 Document 12/25/20 13:49 [facility] [id number] 12/25/20 14:03 [facility] Document 01/08/21 13:52 [id number] 01/08/21 14:00 KR 12/18/20 12/25/20 01/08/21 13:08 13:49 13:52 Wound Center Nurse 1 #14 coccyx -Combined with other wound No No -Current Size (cm) - Length 0.9 0.1 -Current Size (cm) - Width 0.5 0.1 -Current Size (cm) - Depth 0.2 0.1 -Total Square Cm 0.45 0.01 -Photo Taken No -Epithelialization Small 1-33% Large 67-100% -Tunneling No -Undermining/Tunneling No -Classification - Thickness Partial Thickness -Exudate Type Serosanguineous -Wound Margin Flat & Intact -Granulation Amt Medium (34-66%) -Granulation Quality Red -Slough/Fibrin Yes -Necrosis Amt Small (1-33%) -Necrotic Tissue Type Adherent Slough -Structure Exposed N/A -Texture (Temi-wound Skin Appearance) Assessed Assessed, Scarring -Moisture (Temi-wound Skin Appearance) Assessed,Dry/ Assessed Scaly -Color (Temi-wound Skin Appearance) Assessed Assessed -Temperature (Temi-wound Skin No Abnormality Appearance) (Pt Warm) -Tenderness on Palpation (Temi-wound No Skin Appearance) -Ulcer Cleansing Rinsed/ Irrigated with Saline -Foul Odor after Cleansing No 10. R buttock fold -Combined with other wound No No -Current Size (cm) - Length 3.4 3.1 3.8 -Current Size (cm) - Width 3.9 4.1 2.4 -Current Size (cm) - Depth 0.3 0.3 1 -Total Square Cm 13.26 12.71 9.12 -Photo Taken No No -Epithelialization None Present None Present -Tunneling No No -Undermining/Tunneling No No -Circular Undermining No No -Exudate Amt Medium Large Medium -Exudate Type Serosanguineous Serosanguineous Serosanguineous -Wound Margin Flat & Intact Distinct, Distinct, Outline Outline Attached Attached -Granulation Amt Large (67-100%) Large (67-100%) Large (67-100%) -Granulation Quality Red Red Red -Slough/Fibrin Yes Yes -Necrosis Amt Small (1-33%) Small (1-33%) None Present (0 %) -Necrotic Tissue Type Adherent Slough Adherent Slough -Structure Exposed N/A -Texture (Temi-wound Skin Appearance) Assessed, Assessed, Assessed, Excoriation, Scarring Scarring Friable -Moisture (Temi-wound Skin Appearance) Assessed Assessed, No Abnormality, Maceration Assessed -Color (Temi-wound Skin Appearance) Assessed Assessed No Abnormality, Assessed -Temperature (Temi-wound Skin No Abnormality No Abnormality No Abnormality Appearance) (Pt Warm) (Pt Warm) (Pt Warm) -Tenderness on Palpation (Temi-wound No No No Skin Appearance) -Ulcer Cleansing Rinsed/ Rinsed/ Rinsed/ Irrigated with Irrigated with Irrigated with Saline Saline Saline -Foul Odor after Cleansing No No -Anesthetic Used 4% Lidocaine Solution 7. L lateral LE -Combined with other wound No No -Current Size (cm) - Length 2.5 2.6 2.3 -Current Size (cm) - Width 1.2 1.4 1 -Current Size (cm) - Depth 0.2 0.2 0.2 -Total Square Cm 3.00 3.64 2.3 -Photo Taken No No -Epithelialization Small 1-33% None Present -Tunneling No No -Undermining/Tunneling No No -Circular Undermining No No -Exudate Amt Small Medium Medium -Exudate Type Serosanguineous Serosanguineous Serosanguineous -Wound Margin Flat & Intact Distinct, Distinct, Outline Outline Attached Attached -Granulation Amt Large (67-100%) Large (67-100%) Medium (34-66%) -Granulation Quality Red Red Red -Slough/Fibrin Yes Yes -Necrosis Amt Small (1-33%) Small (1-33%) Medium (34-66%) -Necrotic Tissue Type Adherent Slough Adherent Slough Adherent Slough -Structure Exposed None/Limited to Skin Breakdown -Texture (Temi-wound Skin Appearance) Assessed Assessed, Assessed, Scarring Scarring -Moisture (Temi-wound Skin Appearance) Assessed,Dry/ Assessed,Dry/ No Abnormality, Scaly Scaly Assessed -Color (Temi-wound Skin Appearance) Assessed Assessed No Abnormality, Assessed -Temperature (Temi-wound Skin No Abnormality No Abnormality No Abnormality Appearance) (Pt Warm) (Pt Warm) (Pt Warm) -Tenderness on Palpation (Temi-wound No No No Skin Appearance) -Ulcer Cleansing Rinsed/ Rinsed/ Rinsed/ Irrigated with Irrigated with Irrigated with Saline Saline Saline -Foul Odor after Cleansing No No No -Anesthetic Used 4% Lidocaine Solution Lower Limb Edema Present NA WC - Nurse 2 - General Ulcer CM Notes Start: 12/18/20 13:08 Freq: Status: Active Protocol: Activity Type Activity Date Activity User E-Sign Co-Sign Detail Recorded Client Recorded Date Recorded By Document 12/18/20 13:22 MW [id number] 12/18/20 13:40 MW Document 12/25/20 14:51 MW [id number] 12/25/20 14:54 MW Document 01/08/21 14:30 MW [id number] 01/08/21 14:42 MW 12/18/20 12/25/20 01/08/21 13:22 14:51 14:30 Wound Center Nurse 2 #14 coccyx -Time 13:22 14:53 -Correct Patient Yes Yes -Correct Side, Site, Position Yes Yes -Correct Procedure Yes Yes -Procedure Performed Yes No -Type of Procedure Debridement -Clinical Debridement Subcutaneous -Tissue Removed Subcutaneous -Post Debridement (cm) - Length 1.0 -Post Debridement (cm) - Width 0.5 -Post Debridement (cm) - Depth 0.2 -Total Square (Post) (cm) 0.50 -Area of Debridement (cm) - Length 1.0 -Area of Debridement (cm) - Width 0.5 -Total Square (Area) (cm) 0.50 -Tunneling No -Undermining/Tunneling No -Circular Undermining No -Wound/Ulcer Outcome Not Healed Healed- Epithelialized -Ulcer Cleansing Rinsed/ Irrigated with Saline -Foul Odor after Cleansing No -Bioengineered Tissue No -Bleeding Controlled with Pressure -Offloading No -Treatment Response Procedure Tolerated Well -Debridement - Subq, 1st 20sq cm Yes 10. R buttock fold -Time 13:26 14:53 14:34 -Correct Patient Yes Yes Yes -Correct Side, Site, Position Yes Yes Yes -Correct Procedure Yes Yes Yes -Procedure Performed Yes Yes No -Type of Procedure Debridement Debridement -Clinical Debridement Subcutaneous Subcutaneous -Tissue Removed Subcutaneous Subcutaneous -Post Debridement (cm) - Length 3.5 3.0 3.8 -Post Debridement (cm) - Width 4.0 2.8 2.4 -Post Debridement (cm) - Depth 0.3 0.3 1.0 -Total Square (Post) (cm) 14.00 8.40 9.12 -Area of Debridement (cm) - Length 3.5 3.0 -Area of Debridement (cm) - Width 4.0 2.8 -Total Square (Area) (cm) 14.00 8.40 -Tunneling No No No -Undermining/Tunneling No No No -Circular Undermining No No No -Wound/Ulcer Outcome Not Healed Not Healed Not Healed -Ulcer Cleansing Rinsed/ Rinsed/ Rinsed/ Irrigated with Irrigated with Irrigated with Saline Saline Saline -Foul Odor after Cleansing No No No -Bioengineered Tissue No No No -Bleeding Controlled with Pressure Pressure NA -Offloading No No No -Treatment Response Procedure Procedure Procedure Tolerated Well Tolerated Well Tolerated Well -Debridement - Subq, 1st 20sq cm No Yes 7. L lateral LE -Time 13:26 14:54 14:30 -Correct Patient Yes Yes Yes -Correct Side, Site, Position Yes Yes Yes -Correct Procedure Yes Yes Yes -Procedure Performed Yes Yes Yes -Type of Procedure Debridement Debridement Debridement -Clinical Debridement Subcutaneous Subcutaneous Subcutaneous -Tissue Removed Subcutaneous Subcutaneous Subcutaneous -Post Debridement (cm) - Length 2.5 2.6 1.2 -Post Debridement (cm) - Width 1.2 1.5 0.8 -Post Debridement (cm) - Depth 0.2 0.2 0.1 -Total Square (Post) (cm) 3.00 3.90 0.96 -Area of Debridement (cm) - Length 2.5 2.6 1.2 -Area of Debridement (cm) - Width 1.2 1.5 0.8 -Total Square (Area) (cm) 3.00 3.90 0.96 -Tunneling No No No -Undermining/Tunneling No No No -Circular Undermining No No No -Wound/Ulcer Outcome Healed- Not Healed Not Healed Surgical Closure -Ulcer Cleansing Rinsed/ Rinsed/ Rinsed/ Irrigated with Irrigated with Irrigated with Saline Saline Saline -Foul Odor after Cleansing No No No -Bioengineered Tissue No No No -Bleeding Controlled with Pressure Pressure Pressure -Offloading No No No -Treatment Response Procedure Procedure Procedure Tolerated Well Tolerated Well Tolerated Well -Debridement - Subq, 1st 20sq cm No No Yes Pain Scale: 0-10 Numeric Is Patient Pain Free? Yes Yes WC - Nurse 3 - General Ulcer D/C NN Start: 12/18/20 13:08 Freq: Status: Active Protocol: Activity Type Activity Date Activity User E-Sign Co-Sign Detail Recorded Client Recorded Date Recorded By Document 12/18/20 13:40 MW [id number] 12/18/20 13:44 MW Document 12/25/20 14:56 MW [id number] 12/25/20 14:57 MW Document 01/08/21 14:44 MW [id number] 01/08/21 14:45 MW 12/18/20 12/25/20 01/08/21 13:40 14:56 14:44 Wound Care Nurse 3 #14 coccyx -Ulcer Cleansing Rinsed/ Irrigated with Saline -Foul Odor after Cleansing No -Negative Pressure Wound Therapy N/A -Primary Dressing Applied Fibracol Plus 4x4,Mepilex Border -Fibracol Plus 4x4 1 -Mepilex Border 1 10. R buttock fold -Ulcer Cleansing Rinsed/ Rinsed/ Rinsed/ Irrigated with Irrigated with Irrigated with Saline Saline Saline -Foul Odor after Cleansing No No No -Negative Pressure Wound Therapy N/A N/A N/A -Primary Dressing Applied Mepilex Border Fibracol Plus Aquacel Extra, 4x4,Mepilex Mepilex Border Border -Other Dressing fibracol plus -Aquacel Extra 1 -Fibracol Plus 4x4 1 -Mepilex Border 1 1 1 7. L lateral LE -Ulcer Cleansing Rinsed/ Rinsed/ Rinsed/ Irrigated with Irrigated with Irrigated with Saline Saline Saline -Foul Odor after Cleansing No No No -Negative Pressure Wound Therapy N/A N/A N/A -Primary Dressing Applied NonAdherent NonAdherent Contact Layer Contact Layer -Other Dressing c. hydrogel c.Hydrogel c.hydrogel -Primary Dressing Covered/Secured with Dry Gauze, Dry Gauze, Dry Gauze, Secured with Secured with Secured with Tape Tape Tape Treatment Response Procedure Procedure Procedure Tolerated Well Tolerated Well Tolerated Well Pain Scale: 0-10 Numeric Is Patient Pain Free? Yes Yes Yes Teaching: Wound Center Dressing Your Wound -Person Taught Patient Patient Patient -Teaching Method Discussion, Discussion Discussion, Demonstration Demonstration -Response to teaching Verbalize Verbalize Verbalize understanding understanding understanding WC - Visit Discharge Discharge Condition Stable Ambulatory Status Wheelchair Wheelchair Wheelchair Transportation Private Auto Private Auto Private Auto Accompanied by self self self Medication Reconcilliation completed & No No No provided to patient/care provider Clinical Summary of Care Provided Yes Yes Yes Wound debrided: LLE pressure ulcer stage 2. Laterality: Left Type of Debridement: Excisional debridement Anesthesia Used: 4% Lidocaine Solution Depth: Down to and including healthy tissue Percentage of wound debrided: 100 Instrument Used: Forceps Tissue Removed: biofilm Severity: Limited To Skin Breakdown Amount of bleeding with debridement: Mild Bleeding Controlled with: Pressure Patient tolerated procedure: Patient tolerated procedure well Operative Diagnosis: non-healing pressure wound of the L lateral leg distally. Stage 2 currently Assessment/Plan Assessment/Plan (1) Cellulitis of buttock, right: CODE(S): L03.317 - Cellulitis of buttock PLAN: following irrigation with NS aerobic and anaerobic cultures were taken and sent to the lab. No antibiotics at the present time......I suspect that this is the reason the wound wasn't doing good and not a failure of the Fibracol. I also supect it may have become infected when he had diarrhea and it may be an anaerobic infection. He is going to call me immediately or call the [facility] if he develops fevers or chills. (2) Pressure ulcer of left leg, stage 2: CODE(S): L89.892 - Pressure ulcer of other site, stage 2 PLAN: This wound continues to contract. Will continue with the Hydrogel. (3) Decubitus ulcer of coccyx, stage 2: CODE(S): L89.152 - Pressure ulcer of sacral region, stage 2 PLAN: This is healed. (4) Decubitus ulcer, stage 3: CODE(S): L89.93 - Pressure ulcer of unspecified site, stage 3 QUALIFIERS: Laterality: right Pressure injury location: buttock Qualified Code(s): L89.313 - Pressure ulcer of right buttock, stage 3 PLAN: The wound is deeper than it had been but there is no undermining and there is no tunneling. There is more maceration than normal and this is more likely than not due to sitting for long periods of time in his WC. 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
[2021-01-15 14:09] VITALS: RESP 20; TEMP 36.8; BMI 43.4
--- NOTE | 2021-01-15 16:50 | PCM.WC.PN ---
History of Present Illness Date of Service: 01/15/21 Chief Complaint: Ulcer on left posterior heel, left lateral leg and right and left gluteal fold, temi-rectal ulcer and sacral ulcer History of Wound: Adiel is a 34 year old male who is wheelchair bound and paraplegic. [facility] areas he is presenting for evaluation today. He has had his current ulcers for over 2 months. He has been treating the areas with silvercell dressings and recently was placed on an antibiotic by his PCP. The left lower leg ulcers appear to be from pressure. He is unsure of how they developed. His ulcers on his sacrum and right buttock are from pressure and friction from transferring from his wheelchair to chair with his slide board. He also has an area that was from a temi-rectal abscess that is still open and draining. He reports that he is independent in his ADL's but does have a nurse that comes to care for him daily in the morning for a short time daily. He has a history of Type 2 DM, last A1C 7.0% on 12/20/2019. He has been seen at both our wound healing center and [facility] in [place] in the past for previous uclers. He has previously received Apligraf to his ulcers of his lower legs but the last application was probably 9 months ago. The patient denies any fever, chills, nausea, vomiting, or diarrhea. Denies any signs of infection, including increasing pain, redness, swelling, or drainage from affected area. Subjective Subjective Denies F/C/S. No complaints. The wound culture down last week grew methicillin sensitive staph aureus, Proteus mirabilis and Acinetobacter Baumannii. There were no anaerobic bacteria. He also grew these bacteria back in November and he was treated for infection at that time because he also grew Clostridium clostridioforme. He got severe diarrhea with Augmentin but, it resolved with discontinuation of the Antibiotic. He is c/o being really wound up this week and anxious. I looked at the provider notes and he was previously seeing Dr. Andersen and Dejan Weems for PCP but......he has not been seen since last February. BP and HR are always high and I suspect he is not taking his medications. Objective Data Objective Data Vital Signs: Vital Signs Temp Pulse Resp BP 98.3 F 110 H 20 H 160/98 H 01/15/21 14:09 01/08/21 13:52 01/15/21 14:09 01/08/21 13:52 Oxygen Delivery Method Room Air Weight: 330 lb Body Mass Index (BMI) 43.4 Lab / Micro Data Micro: Microbiology 01/08/21 14:45 Wound Abcess - Buttock Gram Stain - Final 01/08/21 14:45 Wound Abcess - Buttock Wound Culture - Final Proteus mirabilis Acinetobacter baumannii Staphylococcus aureus 01/08/21 14:45 Wound Abcess - Buttock Anaerobic Culture - Final No anaerobic bacteria isolated. Charges/Coding Procedures Integumentary [id number]: [id number] Mylene subq tissue 20 sq cm/< Physical Exam Skin Wounds: wounds noted Wound Narrative: 1. The buttock wound has a slight odor but there is no purulent DC. There are no new wounds.......only the wound in the R buttock fold. There is still a lot of macerated skin around the wound. I suspect this is due to urinary incontinence and him sitting in wet pants for long periods of time.......he does not wear Depends, he wears regular underwear. 2. The wound over the coccyx remains healed. 3. The wound on the Left lateral calf is smaller but it is very dry and there is some eschar which was debrided with a #5 curette and forceps. Debridement Note Debridement Note Post-Debridement Measurements and Additional Note: Post-Debridement Measurements/Treatment - Nurse 1 - General Ulcer Assessment Start: 12/18/20 13:08 Freq: Status: Active Protocol: SHALONDA Activity Type Activity Date Activity User E-Sign Co-Sign Detail Recorded Client Recorded Date Recorded By Document 12/18/20 13:08 [id number] 12/18/20 13:19 Document 12/25/20 13:49 [facility] [id number] 12/25/20 14:03 BM Document 01/08/21 13:52 KR [id number] 01/08/21 14:00 KR Document 01/15/21 14:09 [facility] [id number] 01/15/21 14:13 [facility] 12/18/20 12/25/20 01/08/21 13:08 13:49 13:52 - Today's Visit Information Type of service Follow-up Visit Follow-up Visit Follow-up Visit (Physician/SHREDDER/GRANULATOR OPERATOR (Physician/SHREDDER/GRANULATOR OPERATOR (Physician/SHREDDER/GRANULATOR OPERATOR ) ) ) Arrival Mode Wheelchair Wheelchair Wheelchair Transfer Assistance Manual Transfer Board Patient Identification Verified (Name & Yes Yes Yes ) Patient Requires Transmission-Based No No Precautions Height and Weight Body Mass Index (BMI) 43.4 43.4 43.4 BMI Classification Obese Obese Obese Vital Signs Temperature (97.8 F-99.1 F) 97.7 F L 98.1 F 97.2 F L Temperature Source Temporal Temporal Temporal Pulse Rate (60-100) 102 H 97 110 H Pulse Location Monitor Monitor Monitor Respiratory Rate (12-18) 18 16 Respiratory rate source Observation Observation Oxygen Delivery Method Room Air Blood Pressure (90/60-120/80) 147/74 H 144/87 H 160/98 H Blood Pressure Mean (mm Hg) 98 106 118 Source Manual Monitor Monitor Position Sitting Sitting Semi-Fowlers Blood Pressure Location Left Arm Right Arm Right Arm History Since Last Visit- (Skip if this is Patient's initial visit) Have you changed medications since your No No No last visit? Any new allergies or adverse reactions No No No Had a fall/change in ADL's that may No No No increase risk of falls Signs or symptoms of abuse and/or No No No neglect since last visit Have you been in the hospital since your No No No last visit? Has dressing in place as prescribed Yes Yes Yes Has compression in place as prescribed N/A N/A N/A Has offloadiing in place as prescribed No N/A N/A Experienced any changes in pain level or No No No management Left Footwear Regular Shoe Regular Shoe Regular Shoe Right Footwear Regular Shoe Regular Shoe Regular Shoe Pain Scale: 0-10 Numeric Is Patient Pain Free? Yes Yes Yes 01/15/21 14:09 - Today's Visit Information Type of service Follow-up Visit (Physician/SHREDDER/GRANULATOR OPERATOR ) Arrival Mode Wheelchair Transfer Assistance Transfer Board Patient Identification Verified (Name & Yes ) Patient Requires Transmission-Based No Precautions Height and Weight Body Mass Index (BMI) 43.4 BMI Classification Obese Vital Signs Temperature (97.8 F-99.1 F) 98.3 F Temperature Source Temporal Pulse Rate (60-100) Pulse Location Respiratory Rate (12-18) 20 H Respiratory rate source Oxygen Delivery Method Blood Pressure (90/60-120/80) Blood Pressure Mean (mm Hg) Source Position Blood Pressure Location History Since Last Visit- (Skip if this is Patient's initial visit) Have you changed medications since your No last visit? Any new allergies or adverse reactions No Had a fall/change in ADL's that may No increase risk of falls Signs or symptoms of abuse and/or No neglect since last visit Have you been in the hospital since your No last visit? Has dressing in place as prescribed Yes Has compression in place as prescribed N/A Has offloadiing in place as prescribed No Experienced any changes in pain level or No management Left Footwear Right Footwear Pain Scale: 0-10 Numeric Is Patient Pain Free? Yes WC - Nurse 1 - General Ulcer Measurement Start: 12/18/20 13:08 Freq: Status: Active Protocol: Activity Type Activity Date Activity User E-Sign Co-Sign Detail Recorded Client Recorded Date Recorded By Document 12/18/20 13:08 [id number] 12/18/20 13:19 Document 12/25/20 13:49 [facility] [id number] 12/25/20 14:03 [facility] Document 01/08/21 13:52 KR [id number] 01/08/21 14:00 KR Document 01/15/21 14:09 [facility] [id number] 01/15/21 14:13 [facility] 12/18/20 12/25/20 01/08/21 13:08 13:49 13:52 Wound Center Nurse 1 #14 coccyx -Combined with other wound No No -Current Size (cm) - Length 0.9 0.1 -Current Size (cm) - Width 0.5 0.1 -Current Size (cm) - Depth 0.2 0.1 -Total Square Cm 0.45 0.01 -Photo Taken No -Epithelialization Small 1-33% Large 67-100% -Tunneling No -Undermining/Tunneling No -Classification - Thickness Partial Thickness -Exudate Type Serosanguineous -Wound Margin Flat & Intact -Granulation Amt Medium (34-66%) -Granulation Quality Red -Slough/Fibrin Yes -Necrosis Amt Small (1-33%) -Necrotic Tissue Type Adherent Slough -Structure Exposed N/A -Texture (Temi-wound Skin Appearance) Assessed Assessed, Scarring -Moisture (Temi-wound Skin Appearance) Assessed,Dry/ Assessed Scaly -Color (Temi-wound Skin Appearance) Assessed Assessed -Temperature (Temi-wound Skin No Abnormality Appearance) (Pt Warm) -Tenderness on Palpation (Temi-wound No Skin Appearance) -Ulcer Cleansing Rinsed/ Irrigated with Saline -Foul Odor after Cleansing No 10. R buttock fold -Combined with other wound No No -Current Size (cm) - Length 3.4 3.1 3.8 -Current Size (cm) - Width 3.9 4.1 2.4 -Current Size (cm) - Depth 0.3 0.3 1 -Total Square Cm 13.26 12.71 9.12 -Photo Taken No No -Epithelialization None Present None Present -Tunneling No No -Undermining/Tunneling No No -Circular Undermining No No -Exudate Amt Medium Large Medium -Exudate Type Serosanguineous Serosanguineous Serosanguineous -Wound Margin Flat & Intact Distinct, Distinct, Outline Outline Attached Attached -Granulation Amt Large (67-100%) Large (67-100%) Large (67-100%) -Granulation Quality Red Red Red -Slough/Fibrin Yes Yes -Necrosis Amt Small (1-33%) Small (1-33%) None Present (0 %) -Necrotic Tissue Type Adherent Slough Adherent Slough -Structure Exposed N/A -Texture (Temi-wound Skin Appearance) Assessed, Assessed, Assessed, Excoriation, Scarring Scarring Friable -Moisture (Temi-wound Skin Appearance) Assessed Assessed, No Abnormality, Maceration Assessed -Color (Temi-wound Skin Appearance) Assessed Assessed No Abnormality, Assessed -Temperature (Temi-wound Skin No Abnormality No Abnormality No Abnormality Appearance) (Pt Warm) (Pt Warm) (Pt Warm) -Tenderness on Palpation (Temi-wound No No No Skin Appearance) -Ulcer Cleansing Rinsed/ Rinsed/ Rinsed/ Irrigated with Irrigated with Irrigated with Saline Saline Saline -Foul Odor after Cleansing No No -Anesthetic Used 4% Lidocaine Solution 7. L lateral LE -Combined with other wound No No -Current Size (cm) - Length 2.5 2.6 2.3 -Current Size (cm) - Width 1.2 1.4 1 -Current Size (cm) - Depth 0.2 0.2 0.2 -Total Square Cm 3.00 3.64 2.3 -Photo Taken No No -Epithelialization Small 1-33% None Present -Tunneling No No -Undermining/Tunneling No No -Circular Undermining No No -Exudate Amt Small Medium Medium -Exudate Type Serosanguineous Serosanguineous Serosanguineous -Wound Margin Flat & Intact Distinct, Distinct, Outline Outline Attached Attached -Granulation Amt Large (67-100%) Large (67-100%) Medium (34-66%) -Granulation Quality Red Red Red -Slough/Fibrin Yes Yes -Necrosis Amt Small (1-33%) Small (1-33%) Medium (34-66%) -Necrotic Tissue Type Adherent Slough Adherent Slough Adherent Slough -Structure Exposed None/Limited to Skin Breakdown -Texture (Temi-wound Skin Appearance) Assessed Assessed, Assessed, Scarring Scarring -Moisture (Temi-wound Skin Appearance) Assessed,Dry/ Assessed,Dry/ No Abnormality, Scaly Scaly Assessed -Color (Temi-wound Skin Appearance) Assessed Assessed No Abnormality, Assessed -Temperature (Temi-wound Skin No Abnormality No Abnormality No Abnormality Appearance) (Pt Warm) (Pt Warm) (Pt Warm) -Tenderness on Palpation (Temi-wound No No No Skin Appearance) -Ulcer Cleansing Rinsed/ Rinsed/ Rinsed/ Irrigated with Irrigated with Irrigated with Saline Saline Saline -Foul Odor after Cleansing No No No -Anesthetic Used 4% Lidocaine Solution Lower Limb Edema Present NA 01/15/21 14:09 Wound Center Nurse 1 #14 coccyx -Combined with other wound -Current Size (cm) - Length -Current Size (cm) - Width -Current Size (cm) - Depth -Total Square Cm -Photo Taken -Epithelialization -Tunneling -Undermining/Tunneling -Classification - Thickness -Exudate Type -Wound Margin -Granulation Amt -Granulation Quality -Slough/Fibrin -Necrosis Amt -Necrotic Tissue Type -Structure Exposed -Texture (Temi-wound Skin Appearance) -Moisture (Temi-wound Skin Appearance) -Color (Temi-wound Skin Appearance) -Temperature (Temi-wound Skin Appearance) -Tenderness on Palpation (Temi-wound Skin Appearance) -Ulcer Cleansing -Foul Odor after Cleansing 10. R buttock fold -Combined with other wound -Current Size (cm) - Length 3.7 -Current Size (cm) - Width 3.2 -Current Size (cm) - Depth 1 -Total Square Cm 11.84 -Photo Taken No -Epithelialization -Tunneling -Undermining/Tunneling -Circular Undermining -Exudate Amt Small -Exudate Type Serosanguineous -Wound Margin Indistinct, Non -Visible -Granulation Amt Large (67-100%) -Granulation Quality Pale,Red -Slough/Fibrin -Necrosis Amt Small (1-33%) -Necrotic Tissue Type Adherent Slough -Structure Exposed N/A -Texture (Temi-wound Skin Appearance) Scarring -Moisture (Temi-wound Skin Appearance) No Abnormality -Color (Temi-wound Skin Appearance) No Abnormality -Temperature (Temi-wound Skin No Abnormality Appearance) (Pt Warm) -Tenderness on Palpation (Temi-wound No Skin Appearance) -Ulcer Cleansing Wound Cleanser -Foul Odor after Cleansing No -Anesthetic Used 4% Lidocaine Solution 7. L lateral LE -Combined with other wound -Current Size (cm) - Length 3.2 -Current Size (cm) - Width 1.5 -Current Size (cm) - Depth 0.2 -Total Square Cm 4.80 -Photo Taken No -Epithelialization -Tunneling -Undermining/Tunneling -Circular Undermining -Exudate Amt Small -Exudate Type Serosanguineous -Wound Margin Distinct, Outline Attached -Granulation Amt Large (67-100%) -Granulation Quality Red -Slough/Fibrin -Necrosis Amt Small (1-33%) -Necrotic Tissue Type Adherent Slough -Structure Exposed N/A -Texture (Temi-wound Skin Appearance) Scarring -Moisture (Temi-wound Skin Appearance) No Abnormality -Color (Temi-wound Skin Appearance) Rubor -Temperature (Temi-wound Skin No Abnormality Appearance) (Pt Warm) -Tenderness on Palpation (Temi-wound No Skin Appearance) -Ulcer Cleansing Wound Cleanser -Foul Odor after Cleansing No -Anesthetic Used Lower Limb Edema Present WC - Nurse 2 - General Ulcer CM Notes Start: 12/18/20 13:08 Freq: Status: Active Protocol: Activity Type Activity Date Activity User E-Sign Co-Sign Detail Recorded Client Recorded Date Recorded By Document 12/18/20 13:22 MW [id number] 12/18/20 13:40 MW Document 12/25/20 14:51 MW [id number] 12/25/20 14:54 MW Document 01/08/21 14:30 MW [id number] 01/08/21 14:42 MW Document 01/15/21 14:43 JF [id number] 01/15/21 14:51 JF 12/18/20 12/25/20 01/08/21 13:22 14:51 14:30 Wound Center Nurse 2 #14 coccyx -Time 13:22 14:53 -Correct Patient Yes Yes -Correct Side, Site, Position Yes Yes -Correct Procedure Yes Yes -Procedure Performed Yes No -Type of Procedure Debridement -Clinical Debridement Subcutaneous -Tissue Removed Subcutaneous -Post Debridement (cm) - Length 1.0 -Post Debridement (cm) - Width 0.5 -Post Debridement (cm) - Depth 0.2 -Total Square (Post) (cm) 0.50 -Area of Debridement (cm) - Length 1.0 -Area of Debridement (cm) - Width 0.5 -Total Square (Area) (cm) 0.50 -Tunneling No -Undermining/Tunneling No -Circular Undermining No -Wound/Ulcer Outcome Not Healed Healed- Epithelialized -Ulcer Cleansing Rinsed/ Irrigated with Saline -Foul Odor after Cleansing No -Bioengineered Tissue No -Bleeding Controlled with Pressure -Offloading No -Treatment Response Procedure Tolerated Well -Debridement - Subq, 1st 20sq cm Yes 10. R buttock fold -Time 13:26 14:53 14:34 -Correct Patient Yes Yes Yes -Correct Side, Site, Position Yes Yes Yes -Correct Procedure Yes Yes Yes -Procedure Performed Yes Yes No -Type of Procedure Debridement Debridement -Clinical Debridement Subcutaneous Subcutaneous -Tissue Removed Subcutaneous Subcutaneous -Post Debridement (cm) - Length 3.5 3.0 3.8 -Post Debridement (cm) - Width 4.0 2.8 2.4 -Post Debridement (cm) - Depth 0.3 0.3 1.0 -Total Square (Post) (cm) 14.00 8.40 9.12 -Area of Debridement (cm) - Length 3.5 3.0 -Area of Debridement (cm) - Width 4.0 2.8 -Total Square (Area) (cm) 14.00 8.40 -Tunneling No No No -Undermining/Tunneling No No No -Circular Undermining No No No -Wound/Ulcer Outcome Not Healed Not Healed Not Healed -Ulcer Cleansing Rinsed/ Rinsed/ Rinsed/ Irrigated with Irrigated with Irrigated with Saline Saline Saline -Foul Odor after Cleansing No No No -Bioengineered Tissue No No No -Bleeding Controlled with Pressure Pressure NA -Offloading No No No -Treatment Response Procedure Procedure Procedure Tolerated Well Tolerated Well Tolerated Well -Debridement - Subq, 1st 20sq cm No Yes 7. L lateral LE -Time 13:26 14:54 14:30 -Correct Patient Yes Yes Yes -Correct Side, Site, Position Yes Yes Yes -Correct Procedure Yes Yes Yes -Procedure Performed Yes Yes Yes -Type of Procedure Debridement Debridement Debridement -Clinical Debridement Subcutaneous Subcutaneous Subcutaneous -Tissue Removed Subcutaneous Subcutaneous Subcutaneous -Post Debridement (cm) - Length 2.5 2.6 1.2 -Post Debridement (cm) - Width 1.2 1.5 0.8 -Post Debridement (cm) - Depth 0.2 0.2 0.1 -Total Square (Post) (cm) 3.00 3.90 0.96 -Area of Debridement (cm) - Length 2.5 2.6 1.2 -Area of Debridement (cm) - Width 1.2 1.5 0.8 -Total Square (Area) (cm) 3.00 3.90 0.96 -Tunneling No No No -Undermining/Tunneling No No No -Circular Undermining No No No -Wound/Ulcer Outcome Healed- Not Healed Not Healed Surgical Closure -Ulcer Cleansing Rinsed/ Rinsed/ Rinsed/ Irrigated with Irrigated with Irrigated with Saline Saline Saline -Foul Odor after Cleansing No No No -Bioengineered Tissue No No No -Bleeding Controlled with Pressure Pressure Pressure -Offloading No No No -Treatment Response Procedure Procedure Procedure Tolerated Well Tolerated Well Tolerated Well -Debridement - Subq, 1st 20sq cm No No Yes Pain Scale: 0-10 Numeric Is Patient Pain Free? Yes Yes 01/15/21 14:43 Wound Center Nurse 2 #14 coccyx -Time -Correct Patient -Correct Side, Site, Position -Correct Procedure -Procedure Performed -Type of Procedure -Clinical Debridement -Tissue Removed -Post Debridement (cm) - Length -Post Debridement (cm) - Width -Post Debridement (cm) - Depth -Total Square (Post) (cm) -Area of Debridement (cm) - Length -Area of Debridement (cm) - Width -Total Square (Area) (cm) -Tunneling -Undermining/Tunneling -Circular Undermining -Wound/Ulcer Outcome -Ulcer Cleansing -Foul Odor after Cleansing -Bioengineered Tissue -Bleeding Controlled with -Offloading -Treatment Response -Debridement - Subq, 1st 20sq cm 10. R buttock fold -Time -Correct Patient No -Correct Side, Site, Position No -Correct Procedure No -Procedure Performed No -Type of Procedure -Clinical Debridement -Tissue Removed -Post Debridement (cm) - Length -Post Debridement (cm) - Width -Post Debridement (cm) - Depth -Total Square (Post) (cm) -Area of Debridement (cm) - Length -Area of Debridement (cm) - Width -Total Square (Area) (cm) -Tunneling No -Undermining/Tunneling No -Circular Undermining No -Wound/Ulcer Outcome Not Healed -Ulcer Cleansing Rinsed/ Irrigated with Saline -Foul Odor after Cleansing No -Bioengineered Tissue No -Bleeding Controlled with Pressure -Offloading No -Treatment Response Procedure Tolerated Well -Debridement - Subq, 1st 20sq cm No 7. L lateral LE -Time 14:49 -Correct Patient Yes -Correct Side, Site, Position Yes -Correct Procedure Yes -Procedure Performed Yes -Type of Procedure Debridement -Clinical Debridement Subcutaneous -Tissue Removed Subcutaneous -Post Debridement (cm) - Length 3.4 -Post Debridement (cm) - Width 1.5 -Post Debridement (cm) - Depth 0.2 -Total Square (Post) (cm) 5.10 -Area of Debridement (cm) - Length 3.4 -Area of Debridement (cm) - Width 1.5 -Total Square (Area) (cm) 5.10 -Tunneling No -Undermining/Tunneling No -Circular Undermining No -Wound/Ulcer Outcome Not Healed -Ulcer Cleansing Rinsed/ Irrigated with Saline -Foul Odor after Cleansing No -Bioengineered Tissue No -Bleeding Controlled with Pressure -Offloading No -Treatment Response Procedure Tolerated Well -Debridement - Subq, 1st 20sq cm Yes Pain Scale: 0-10 Numeric Is Patient Pain Free? Yes WC - Nurse 3 - General Ulcer D/C NN Start: 12/18/20 13:08 Freq: Status: Active Protocol: Activity Type Activity Date Activity User E-Sign Co-Sign Detail Recorded Client Recorded Date Recorded By Document 12/18/20 13:40 MW [id number] 12/18/20 13:44 MW Document 12/25/20 14:56 MW [id number] 12/25/20 14:57 MW Document 01/08/21 14:44 MW [id number] 01/08/21 14:45 MW 12/18/20 12/25/20 01/08/21 13:40 14:56 14:44 Wound Care Nurse 3 #14 coccyx -Ulcer Cleansing Rinsed/ Irrigated with Saline -Foul Odor after Cleansing No -Negative Pressure Wound Therapy N/A -Primary Dressing Applied Fibracol Plus 4x4,Mepilex Border -Fibracol Plus 4x4 1 -Mepilex Border 1 10. R buttock fold -Ulcer Cleansing Rinsed/ Rinsed/ Rinsed/ Irrigated with Irrigated with Irrigated with Saline Saline Saline -Foul Odor after Cleansing No No No -Negative Pressure Wound Therapy N/A N/A N/A -Primary Dressing Applied Mepilex Border Fibracol Plus Aquacel Extra, 4x4,Mepilex Mepilex Border Border -Other Dressing fibracol plus -Aquacel Extra 1 -Fibracol Plus 4x4 1 -Mepilex Border 1 1 1 7. L lateral LE -Ulcer Cleansing Rinsed/ Rinsed/ Rinsed/ Irrigated with Irrigated with Irrigated with Saline Saline Saline -Foul Odor after Cleansing No No No -Negative Pressure Wound Therapy N/A N/A N/A -Primary Dressing Applied NonAdherent NonAdherent Contact Layer Contact Layer -Other Dressing c. hydrogel c.Hydrogel c.hydrogel -Primary Dressing Covered/Secured with Dry Gauze, Dry Gauze, Dry Gauze, Secured with Secured with Secured with Tape Tape Tape Treatment Response Procedure Procedure Procedure Tolerated Well Tolerated Well Tolerated Well Pain Scale: 0-10 Numeric Is Patient Pain Free? Yes Yes Yes Teaching: Wound Center Dressing Your Wound -Person Taught Patient Patient Patient -Teaching Method Discussion, Discussion Discussion, Demonstration Demonstration -Response to teaching Verbalize Verbalize Verbalize understanding understanding understanding WC - Visit Discharge Discharge Condition Stable Ambulatory Status Wheelchair Wheelchair Wheelchair Transportation Private Auto Private Auto Private Auto Accompanied by self self self Medication Reconcilliation completed & No No No provided to patient/care provider Clinical Summary of Care Provided Yes Yes Yes Wound debrided: calf wound Laterality: Right Wound Grade/Stage: stage 2 Type of Debridement: Excisional debridement Anesthesia Used: 4% Lidocaine Solution Depth: Down to and including healthy tissue and in the subcutaneous layer Percentage of wound debrided: 100 Instrument Used: 5mm curette and Forceps Tissue Removed: eschar and biofilm Severity: Limited To Skin Breakdown Amount of bleeding with debridement: Mild Bleeding Controlled with: Pressure Patient tolerated procedure: Patient tolerated procedure well Assessment/Plan Assessment/Plan (1) Decubitus ulcer, stage 3: CODE(S): L89.93 - Pressure ulcer of unspecified site, stage 3 QUALIFIERS: Laterality: right Pressure injury location: buttock Qualified Code(s): L89.313 - Pressure ulcer of right buttock, stage 3 (2) Pressure ulcer of left leg, stage 2: CODE(S): L89.892 - Pressure ulcer of other site, stage 2 (3) Paraplegia: CODE(S): G82.20 - Paraplegia, unspecified (4) Urinary incontinence, nocturnal enuresis: CODE(S): N39.44 - Nocturnal enuresis (5) Tachycardia: CODE(S): R00.0 - Tachycardia, unspecified (6) High blood pressure: CODE(S): I10 - Essential (primary) hypertension QUALIFIERS: Hypertension type: essential hypertension Qualified Code(s): I10 - Essential (primary) hypertension PLAN: 1. Continue the current dressing 2. I reminded kaur of the importance of off loading the buttocks and not wearing wet pants. Despite his inabilities to be compliant with a lot of our suggestions the wound continues to fill in and the base is beefy red granulation tissue. Would like to consider a skin substitute to get the wound covered. 3. RTC in 1 week 4. I advised him to make an appt with Dejan weems NP or Dr. Andersen to address the high blood pressures
== END 2021-01-16 23:59 ==
LOC: WC 13:15
PROVIDERS: Family Provider Internal Medicine; PCP Internal Medicine; Referring Provider Nurse Practitioner Family; Visit Provider Internal Medicine
DX: L89.313 Pressure ulcer of right buttock, stage 3 (principal); L89.152 Pressure ulcer of sacral region, stage 2; L89.892 Pressure ulcer of other site, stage 2; K61.1 Rectal abscess; L03.317 Cellulitis of buttock; G82.20 Paraplegia, unspecified; E11.9 Type 2 diabetes mellitus without complications; I10 Essential (primary) hypertension; R32 Unspecified urinary incontinence; N39.44 Nocturnal enuresis; R19.7 Diarrhea, unspecified; E66.9 Obesity, unspecified; Z68.41 Body mass index [BMI] 40.0-44.9, adult; Z99.3 Dependence on wheelchair
CPT/HCPCS: 11042; 87070; 87075; 87077; 87186; 87205

== ENCOUNTER 2021-02-12 13:00 | Outpatient (RCR) | payer MEDICARE, SELFPAY ==
[2021-01-17 00:13] VITALS: BP 160/98; PULSE 110; RESP 20; TEMP 36.8
[2021-02-05 13:06] VITALS: BP 135/87; PULSE 116; RESP 16; TEMP 37; BMI 43.4
--- NOTE | 2021-02-05 14:43 | PN.PCM_ITS ---
History of Present Illness Date of Service: 02/05/21 Chief Complaint: Ulcer on left posterior heel, left lateral leg and right and left gluteal fold, temi-rectal ulcer and sacral ulcer History of Wound: Adiel is a 34 year old male who is wheelchair bound and paraplegic. He [facility] the same areas he is presenting for evaluation today. He has had his current ulcers for over 2 months. He has been treating the areas with silvercell dressings and recently was placed on an antibiotic by his PCP. The left lower leg ulcers appear to be from pressure. He is unsure of how they developed. His ulcers on his sacrum and right buttock are from pressure and friction from transferring from his wheelchair to chair with his slide board. He also has an area that was from a temi-rectal abscess that is still open and draining. He reports that he is independent in his ADL's but does have a nurse that comes to care for him daily in the morning for a short time daily. He has a history of Type 2 DM, last A1C 7.0% on 12/20/2019. He has been seen at both our wound healing center and [facility] in [place] in the past for previous uclers. He has previously received Apligraf to his ulcers of his lower legs but the last application was probably 9 months ago. The patient denies any fever, chills, nausea, vomiting, or diarrhea. Denies any signs of infection, including increasing pain, redness, swelling, or drainage from affected area. Subjective Nicki Crespo returns to the wound care center today for follow-up visit. He denies fevers, chills, night sweats, pain. The wound in the right gluteal fold is currently being dressed with Fibracol plus Mepilex border. The wound on the left lateral leg is being treated with hydrogel covered with dry gauze and secured with tape. Zak tells me that he recently had a urinary tract infection and had a few episodes of urinary incontinence last week. He seems to get frequent urinary tract infections and I wonder if he is not retaining urine. He has not seen a urologist in quite some time. He has still not followed up with Dr. Andersen. The last HGBA1C was in December of 2019 and it was 7. BP and HR are usually elevated. He is irritable at times and just does not care. He tells me he would rather than have to be in bed for months after a colostomy and plastic surgery to close the wound on his backside. He denies any suicidal ideation and he tells me that he does not want to . He neglects his health and I feel this is due to frustration at his situation and depression. He is not on an antidepressant and he tells me that he does not want to be on that shit. Microalbumin/creat ratio was WNL in December of 2019. He has been told by the aide changing the dressings daily that the wound is not doing so well. Objective Data Objective Data Vital Signs: Vital Signs Temp Pulse Resp BP 98.6 F 116 H 16 135/87 H 02/05/21 13:06 02/05/21 13:06 02/05/21 13:06 02/05/21 13:06 Oxygen Delivery Method Room Air Weight: 330 lb Body Mass Index (BMI) 43.4 Charges/Coding Procedures Integumentary 111xxx-113xx: 44521 Mylene subq tissue 20 sq cm/< Physical Exam Const alert and no apparent distress Constitutional Narrative: obese. Irritable when we are discussing my recommendation that he have a colostomy and have plastics rotate a flap into the non-healing wound in the R gluteal fold. Skin Wounds: wounds noted Wound Narrative: The wound is deeper than I have seen it. There is tunnelling at 7-8 o'clock. There is visible fascia and some muscle. There is no change in the maceration. There is no temi-wound erythema and there is no odor. No purulent DC. The deepest part of the wound is clifton/black but this is only a small area. The wound on the lateral left leg is looking better. there is increasing epithelialization and and there no longer any eschar. No periwound erythema, no odor, no purulent discharge, no increased warmth to touch. Debridement Note Debridement Note Post-Debridement Measurements and Additional Note: Post-Debridement Measurements/Treatment RONAL - Nurse 1 - General Ulcer Assessment Start: 02/05/21 13:06 Freq: Status: Active Protocol: RONAL.LOWEXT Activity Type Activity Date Activity User E-Sign Co-Sign Detail Recorded Client Recorded Date Recorded By Document 02/05/21 13:06 ABIGAIL [id number] 02/05/21 13:14 02/05/21 13:06 - Today's Visit Information Type of service Follow-up Visit (Physician/GLASSWARE MAKER ) Arrival Mode Wheelchair Transfer Assistance Manual Transfer Assist (Other) 2 assist Patient Identification Verified (Name & Yes ) Patient Requires Transmission-Based No Precautions Height and Weight Body Mass Index (BMI) 43.4 BMI Classification Obese Vital Signs Temperature (97.8 F-99.1 F) 98.6 F Temperature Source Temporal Pulse Rate (60-100) 116 H Pulse Location Monitor Respiratory Rate (12-18) 16 Respiratory rate source Observation Oxygen Delivery Method Room Air Blood Pressure (90/60-120/80) 135/87 H Blood Pressure Mean (mm Hg) 103 Source Monitor Position Sitting Blood Pressure Location Left Arm History Since Last Visit- (Skip if this is Patient's initial visit) Have you changed medications since your No last visit? Any new allergies or adverse reactions No Had a fall/change in ADL's that may No increase risk of falls Signs or symptoms of abuse and/or No neglect since last visit Have you been in the hospital since your No last visit? Has dressing in place as prescribed Yes Has compression in place as prescribed N/A Has offloadiing in place as prescribed N/A Experienced any changes in pain level or No management Left Footwear Regular Shoe Right Footwear Regular Shoe Pain Scale: 0-10 Numeric Is Patient Pain Free? Yes - Nurse 1 - General Ulcer Measurement Start: 02/05/21 13:06 Freq: Status: Active Protocol: Activity Type Activity Date Activity User E-Sign Co-Sign Detail Recorded Client Recorded Date Recorded By Document 02/05/21 13:06 [id number] 02/05/21 13:14 02/05/21 13:06 Wound Center Nurse 1 10. R buttock fold -Combined with other wound No -Current Size (cm) - Length 4.4 -Current Size (cm) - Width 3 -Current Size (cm) - Depth 2.6 -Total Square Cm 13.2 -Photo Taken No -Epithelialization None Present -Tunneling No -Undermining/Tunneling No -Circular Undermining No -Exudate Amt Large -Exudate Type Serosanguineous -Wound Margin Distinct, Outline Attached -Granulation Amt Large (67-100%) -Granulation Quality Red -Slough/Fibrin Yes -Necrosis Amt Small (1-33%) -Necrotic Tissue Type Adherent Slough -Texture (Temi-wound Skin Appearance) Assessed, Scarring -Moisture (Temi-wound Skin Appearance) Assessed, Maceration -Color (Temi-wound Skin Appearance) Assessed, Erythema,Palor -Temperature (Temi-wound Skin No Abnormality Appearance) (Pt Warm) -Tenderness on Palpation (Temi-wound No Skin Appearance) -Ulcer Cleansing Rinsed/ Irrigated with Saline -Foul Odor after Cleansing No 7. L lateral LE -Combined with other wound No -Current Size (cm) - Length 3.3 -Current Size (cm) - Width 1 -Current Size (cm) - Depth 0.2 -Total Square Cm 3.3 -Photo Taken No -Epithelialization None Present -Tunneling No -Undermining/Tunneling No -Circular Undermining No -Exudate Amt Medium -Exudate Type Serosanguineous -Wound Margin Distinct, Outline Attached -Granulation Amt Medium (34-66%) -Granulation Quality Red -Slough/Fibrin Yes -Necrosis Amt Medium (34-66%) -Necrotic Tissue Type Adherent Slough -Texture (Temi-wound Skin Appearance) Assessed, Scarring -Moisture (Temi-wound Skin Appearance) Assessed -Color (Temi-wound Skin Appearance) Assessed -Temperature (Temi-wound Skin No Abnormality Appearance) (Pt Warm) -Tenderness on Palpation (Temi-wound No Skin Appearance) -Ulcer Cleansing Rinsed/ Irrigated with Saline -Foul Odor after Cleansing No WC - Nurse 2 - General Ulcer CM Notes Start: 02/05/21 13:06 Freq: Status: Active Protocol: Activity Type Activity Date Activity User E-Sign Co-Sign Detail Recorded Client Recorded Date Recorded By Document 02/05/21 13:39 MW [id number] 02/05/21 13:56 MW 02/05/21 13:39 Wound Center Nurse 2 10. R buttock fold -Time 13:39 -Correct Patient Yes -Correct Side, Site, Position Yes -Correct Procedure Yes -Procedure Performed No -Post Debridement (cm) - Length 4.4 -Post Debridement (cm) - Width 3.0 -Post Debridement (cm) - Depth 3.4 -Total Square (Post) (cm) 13.20 -Tunneling No -Undermining/Tunneling No -Circular Undermining No -Wound/Ulcer Outcome Not Healed -Ulcer Cleansing Rinsed/ Irrigated with Saline -Foul Odor after Cleansing No -Bioengineered Tissue No -Bleeding Controlled with NA -Offloading No -Treatment Response Procedure Tolerated Well 7. L lateral LE -Time 13:39 -Correct Patient Yes -Correct Side, Site, Position Yes -Correct Procedure Yes -Procedure Performed Yes -Type of Procedure Debridement -Clinical Debridement Subcutaneous -Tissue Removed Subcutaneous -Post Debridement (cm) - Length 3.2 -Post Debridement (cm) - Width 1.1 -Post Debridement (cm) - Depth 0.2 -Total Square (Post) (cm) 3.52 -Area of Debridement (cm) - Length 3.2 -Area of Debridement (cm) - Width 1.1 -Total Square (Area) (cm) 3.52 -Tunneling No -Undermining/Tunneling No -Circular Undermining No -Wound/Ulcer Outcome Not Healed -Ulcer Cleansing Rinsed/ Irrigated with Saline -Foul Odor after Cleansing No -Bioengineered Tissue No -Bleeding Controlled with Pressure -Offloading No -Treatment Response Procedure Tolerated Well -Debridement - Subq, 1st 20sq cm Yes Pain Scale: 0-10 Numeric Is Patient Pain Free? Yes WC - Nurse 3 - General Ulcer D/C NN Start: 02/05/21 13:06 Freq: Status: Active Protocol: Activity Type Activity Date Activity User E-Sign Co-Sign Detail Recorded Client Recorded Date Recorded By Document 02/05/21 13:56 MW [id number] 02/05/21 13:58 MW 02/05/21 13:56 Wound Care Nurse 3 10. R buttock fold -Ulcer Cleansing Rinsed/ Irrigated with Saline -Foul Odor after Cleansing No -Negative Pressure Wound Therapy N/A -Primary Dressing Applied Aquacel AG 4x4, Mepilex Border -Aquacel AG 4x4 1 -Mepilex Border 1 7. L lateral LE -Ulcer Cleansing Rinsed/ Irrigated with Saline -Foul Odor after Cleansing No -Negative Pressure Wound Therapy N/A -Primary Dressing Applied Mepilex Border, Promogran Kita Matter -Mepilex Border 1 -Promogran Kita Matter 1 Treatment Response Procedure Tolerated Well Pain Scale: 0-10 Numeric Is Patient Pain Free? Yes Teaching: Wound Center Dressing Your Wound -Person Taught Patient -Teaching Method Discussion -Response to teaching Verbalize understanding WC - Visit Discharge Discharge Condition Stable Ambulatory Status Wheelchair Transportation Private Auto Accompanied by self Medication Reconcilliation completed & No provided to patient/care provider Clinical Summary of Care Provided Yes Additional Wound Wound debrided: Left lateral leg Laterality: Left Type of Debridement: Excisional debridement Anesthesia Used: 4% Lidocaine Solution Depth: Down to and including healthy tissue and in the subcutaneous layer Percentage of wound debrided: 100 Instrument Used: 3mm curette Tissue Removed: biofilm Severity: Limited To Skin Breakdown Amount of bleeding with debridement: Mild Bleeding Controlled with: Pressure Patient tolerated procedure: Patient tolerated procedure well Operative Diagnosis: non-healing pressure wound stage 2 Assessment/Plan Assessment/Plan (1) Pressure ulcer of left leg, stage 2: CODE(S): L89.892 - Pressure ulcer of other site, stage 2 (2) 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 Change the dressing on the gluteal fold wound to Aquacel AG....c onsider a wound vac. Also consider referral to Dr. Granados for a graft/flap......would need to have a colostomy. He is very against this because he would need to be in bed until the graft/flap took and he is not willing to do this at this time. 2. He has not seen his PCP in over a year and I doubt he is taking any medication for HTN or DM since I do not think his PCP would continue to prescribe this meds without seeing him.....will discuss at the next visit. 3. He is young and frustrated and mad that he is a paraplegic. He does not want to deal with the complications of paraplegia and in not taking care of himself and not complying with off loading he is causing more harm. He is resistant to taking an antidepressant but, will continue to discuss this with him. 4. Ask him at his next visit if he is taking any medications. 5. It will be near impossible to get the R gluteal fold completely healed unless he is going to cooperate with off loading and managing his DM. 6. He seems to get a lot of UTI's......but he does not get RX's for antibiotics. I suspect he probably has urine retention. 7. He has a RoHo cushion but not a hospital bed. Will apply for a hospital bed with a low air loss matttess.
[2021-02-12 13:04] VITALS: BP 114/82; PULSE 90; TEMP 37; BMI 43.4
--- NOTE | 2021-02-19 10:45 | PCM.WC.PN ---
History of Present Illness Date of Service: 02/12/21 Chief Complaint: Ulcer on left posterior heel, left lateral leg and right and left gluteal fold, temi-rectal ulcer and sacral ulcer History of Wound: Adiel is a 34 year old male who is wheelchair bound and paraplegic. [facility] areas he is presenting for evaluation today. He has had his current ulcers for over 2 months. He has been treating the areas with silvercell dressings and recently was placed on an antibiotic by his PCP. The left lower leg ulcers appear to be from pressure. He is unsure of how they developed. His ulcers on his sacrum and right buttock are from pressure and friction from transferring from his wheelchair to chair with his slide board. He also has an area that was from a temi-rectal abscess that is still open and draining. He reports that he is independent in his ADL's but does have a nurse that comes to care for him daily in the morning for a short time daily. He has a history of Type 2 DM, last A1C 7.0% on 12/20/2019. He has been seen at both our wound healing center and [facility]'s in [place] in the past for previous uclers. He has previously received Apligraf to his ulcers of his lower legs but the last application was probably 9 months ago. The patient denies any fever, chills, nausea, vomiting, or diarrhea. Denies any signs of infection, including increasing pain, redness, swelling, or drainage from affected area. Subjective Nicki Crespo returns today for a follow up visit. He has been staying off his backside a lot more over the past week. He denies fevers, chills, sweats. Objective Data Objective Data Vital Signs: Vital Signs Temp Pulse Resp BP 98.6 F 90 16 114/82 H 02/12/21 13:04 02/12/21 13:04 02/05/21 13:06 02/12/21 13:04 Oxygen Delivery Method Room Air Weight: 330 lb Body Mass Index (BMI) 43.4 Lab / Micro Data Micro: Microbiology 02/13/21 13:40 Tissue Ulcer - Buttock Gram Stain - Final 02/13/21 13:40 Tissue Ulcer - Buttock Wound Culture - Final Proteus mirabilis Acinetobacter baumannii Staphylococcus haemolyticus Corynebacterium striatum 02/13/21 13:40 Tissue Ulcer - Buttock Anaerobic Culture - Final No anaerobic bacteria isolated. Charges/Coding Visit Charges Office Visits / Consults: [id number] OV L3 Est Physical Exam Skin Wounds: wounds noted Wound Narrative: The wound in the R gluteal fold is much deeper than last week even. I can not feel bone in the base of the wound. There is a foul smelling thin DC. The wound was irrigated with NS and then a culture for aerobic and anaerobic bacteria was obtained. there is maceration at the margins of the wound. The wound is undermined and there is tunneling from 6-12 PM. The temi-rectal area has no open wounds. I did not debide today. this needs surgically debrided and explored. Debridement Note Debridement Note Post-Debridement Measurements and Additional Note: Post-Debridement Measurements/Treatment WC - Nurse 1 - General Ulcer Assessment Start: 02/05/21 13:06 Freq: Status: Active Protocol: RONAL.LOWJOHN Activity Type Activity Date Activity User E-Sign Co-Sign Detail Recorded Client Recorded Date Recorded By Document 02/05/21 13:06 DL [id number] 02/05/21 13:14 DL Document 02/12/21 13:04 AK [id number] 02/12/21 13:19 AK 02/05/21 02/12/21 13:06 13:04 - Today's Visit Information Type of service Follow-up Visit Follow-up Visit (Physician/TECHNICAL ILLUSTRATOR (Physician/TECHNICAL ILLUSTRATOR ) ) Arrival Mode Wheelchair Wheelchair Transfer Assistance Manual Transfer Assist (Other) 2 assist Patient Identification Verified (Name & Yes Yes ) Patient Requires Transmission-Based No Precautions Height and Weight Body Mass Index (BMI) 43.4 43.4 BMI Classification Obese Obese Vital Signs Temperature (97.8 F-99.1 F) 98.6 F 98.6 F Temperature Source Temporal Temporal Pulse Rate (60-100) 116 H 90 Pulse Location Monitor Respiratory Rate (12-18) 16 Respiratory rate source Observation Oxygen Delivery Method Room Air Blood Pressure (90/60-120/80) 135/87 H 114/82 H Blood Pressure Mean (mm Hg) 103 92 Source Monitor Monitor Position Sitting Blood Pressure Location Left Arm History Since Last Visit- (Skip if this is Patient's initial visit) Have you changed medications since your No No last visit? Any new allergies or adverse reactions No No Had a fall/change in ADL's that may No No increase risk of falls Signs or symptoms of abuse and/or No No neglect since last visit Have you been in the hospital since your No No last visit? Has dressing in place as prescribed Yes Yes Has compression in place as prescribed N/A N/A Has offloadiing in place as prescribed N/A N/A Experienced any changes in pain level or No No management Left Footwear Regular Shoe Regular Shoe Right Footwear Regular Shoe Regular Shoe Pain Scale: 0-10 Numeric Is Patient Pain Free? Yes Yes WC - Nurse 1 - General Ulcer Measurement Start: 02/05/21 13:06 Freq: Status: Active Protocol: Activity Type Activity Date Activity User E-Sign Co-Sign Detail Recorded Client Recorded Date Recorded By Document 02/05/21 13:06 DL [id number] 02/05/21 13:14 DL Document 02/12/21 13:04 AK [id number] 02/12/21 13:19 AK 02/05/21 02/12/21 13:06 13:04 Wound Center Nurse 1 10. R buttock fold -Combined with other wound No -Current Size (cm) - Length 4.4 5 -Current Size (cm) - Width 3 1.7 -Current Size (cm) - Depth 2.6 4.8 -Total Square Cm 13.2 8.5 -Photo Taken No -Epithelialization None Present -Tunneling No -Tunneling Position (O'clock) 5 -Tunneling Distance (cm) 5 -Undermining/Tunneling No -Circular Undermining No -Exudate Amt Large Medium -Exudate Type Serosanguineous Serosanguineous -Wound Margin Distinct, Distinct, Outline Outline Attached Attached -Granulation Amt Large (67-100%) Medium (34-66%) -Granulation Quality Red Red -Slough/Fibrin Yes -Necrosis Amt Small (1-33%) Medium (34-66%) -Necrotic Tissue Type Adherent Slough Adherent Slough -Texture (Temi-wound Skin Appearance) Assessed, Assessed, Scarring Scarring -Moisture (Temi-wound Skin Appearance) Assessed, No Abnormality, Maceration Assessed -Color (Temi-wound Skin Appearance) Assessed, No Abnormality, Erythema,Palor Assessed -Temperature (Temi-wound Skin No Abnormality No Abnormality Appearance) (Pt Warm) (Pt Warm) -Tenderness on Palpation (Temi-wound No No Skin Appearance) -Ulcer Cleansing Rinsed/ Rinsed/ Irrigated with Irrigated with Saline Saline -Foul Odor after Cleansing No No -Anesthetic Used 4% Lidocaine Solution 7. L lateral LE -Combined with other wound No -Current Size (cm) - Length 3.3 2.7 -Current Size (cm) - Width 1 1 -Current Size (cm) - Depth 0.2 0.2 -Total Square Cm 3.3 2.7 -Photo Taken No -Epithelialization None Present -Tunneling No -Undermining/Tunneling No -Circular Undermining No -Exudate Amt Medium Small -Exudate Type Serosanguineous Serosanguineous -Wound Margin Distinct, Distinct, Outline Outline Attached Attached -Granulation Amt Medium (34-66%) Medium (34-66%) -Granulation Quality Red Red -Slough/Fibrin Yes -Necrosis Amt Medium (34-66%) Medium (34-66%) -Necrotic Tissue Type Adherent Slough Adherent Slough -Texture (Temi-wound Skin Appearance) Assessed, Assessed, Scarring Scarring -Moisture (Temi-wound Skin Appearance) Assessed No Abnormality, Assessed -Color (Temi-wound Skin Appearance) Assessed No Abnormality, Assessed -Temperature (Temi-wound Skin No Abnormality No Abnormality Appearance) (Pt Warm) (Pt Warm) -Tenderness on Palpation (Temi-wound No No Skin Appearance) -Ulcer Cleansing Rinsed/ Rinsed/ Irrigated with Irrigated with Saline Saline -Foul Odor after Cleansing No No -Anesthetic Used 4% Lidocaine Solution WC - Nurse 2 - General Ulcer CM Notes Start: 02/05/21 13:06 Freq: Status: Active Protocol: Activity Type Activity Date Activity User E-Sign Co-Sign Detail Recorded Client Recorded Date Recorded By Document 02/05/21 13:39 MW [id number] 02/05/21 13:56 MW Document 02/12/21 13:44 MW [id number] 02/12/21 13:51 MW 02/05/21 02/12/21 13:39 13:44 Wound Center Nurse 2 10. R buttock fold -Time 13:39 13:44 -Correct Patient Yes Yes -Correct Side, Site, Position Yes Yes -Correct Procedure Yes Yes -Procedure Performed No No -Post Debridement (cm) - Length 4.4 5.0 -Post Debridement (cm) - Width 3.0 1.7 -Post Debridement (cm) - Depth 3.4 4.0 -Total Square (Post) (cm) 13.20 8.50 -Tunneling No Yes -Tunneling Position (O'clock) 1 -Tunneling Distance (cm) 1.4 -Tunneling Position #2 (O'clock) 7 -Tunneling Distance #2 (cm) 2.0 -Undermining/Tunneling No No -Circular Undermining No No -Wound/Ulcer Outcome Not Healed Not Healed -Ulcer Cleansing Rinsed/ Rinsed/ Irrigated with Irrigated with Saline Saline -Foul Odor after Cleansing No No -Bioengineered Tissue No No -Bleeding Controlled with NA -Offloading No No -Treatment Response Procedure Procedure Tolerated Well Tolerated Well 7. L lateral LE -Time 13:39 13:50 -Correct Patient Yes Yes -Correct Side, Site, Position Yes Yes -Correct Procedure Yes Yes -Procedure Performed Yes Yes -Type of Procedure Debridement Debridement -Clinical Debridement Subcutaneous Subcutaneous -Tissue Removed Subcutaneous Subcutaneous -Post Debridement (cm) - Length 3.2 3.0 -Post Debridement (cm) - Width 1.1 1.3 -Post Debridement (cm) - Depth 0.2 0.1 -Total Square (Post) (cm) 3.52 3.90 -Area of Debridement (cm) - Length 3.2 3.0 -Area of Debridement (cm) - Width 1.1 1.3 -Total Square (Area) (cm) 3.52 3.90 -Tunneling No No -Undermining/Tunneling No No -Circular Undermining No No -Wound/Ulcer Outcome Not Healed Not Healed -Ulcer Cleansing Rinsed/ Rinsed/ Irrigated with Irrigated with Saline Saline -Foul Odor after Cleansing No No -Bioengineered Tissue No No -Bleeding Controlled with Pressure Pressure -Offloading No No -Treatment Response Procedure Procedure Tolerated Well Tolerated Well -Debridement - Subq, 1st 20sq cm Yes Yes Pain Scale: 0-10 Numeric Is Patient Pain Free? Yes Yes WC - Nurse 3 - General Ulcer D/C NN Start: 02/05/21 13:06 Freq: Status: Active Protocol: Activity Type Activity Date Activity User E-Sign Co-Sign Detail Recorded Client Recorded Date Recorded By Document 02/05/21 13:56 MW [id number] 02/05/21 13:58 MW Document 02/12/21 13:52 MW [id number] 02/12/21 13:54 MW 02/05/21 02/12/21 13:56 13:52 Wound Care Nurse 3 10. R buttock fold -Ulcer Cleansing Rinsed/ Rinsed/ Irrigated with Irrigated with Saline Saline -Foul Odor after Cleansing No No -Negative Pressure Wound Therapy N/A N/A -Primary Dressing Applied Aquacel AG 4x4, Aquacel AG 4x4, Mepilex Border Mepilex Border -Aquacel AG 4x4 1 1 -Mepilex Border 1 1 7. L lateral LE -Ulcer Cleansing Rinsed/ Rinsed/ Irrigated with Irrigated with Saline Saline -Foul Odor after Cleansing No No -Negative Pressure Wound Therapy N/A N/A -Primary Dressing Applied Mepilex Border, Mepilex Border, Promogran Promogran Kita Matter Kita Matter -Mepilex Border 1 1 -Promogran Kita Matter 1 1 Treatment Response Procedure Procedure Tolerated Well Tolerated Well Pain Scale: 0-10 Numeric Is Patient Pain Free? Yes Yes Teaching: Wound Center Dressing Your Wound -Person Taught Patient Patient -Teaching Method Discussion Discussion -Response to teaching Verbalize Verbalize understanding understanding WC - Visit Discharge Discharge Condition Stable Stable Ambulatory Status Wheelchair Wheelchair Transportation Private Auto Private Auto Accompanied by self daughter Medication Reconcilliation completed & No No provided to patient/care provider Clinical Summary of Care Provided Yes Yes Assessment/Plan Assessment/Plan (1) Pressure ulcer of left leg, stage 2: CODE(S): L89.892 - Pressure ulcer of other site, stage 2 (2) Decubitus ulcer, stage 3: CODE(S): L89.93 - Pressure ulcer of unspecified site, stage 3 QUALIFIERS: Pressure injury location: buttock Laterality: right Qualified Code(s): L89.313 - Pressure ulcer of right buttock, stage 3 (3) Cellulitis and abscess of buttock: CODE(S): L02.31 - Cutaneous abscess of buttock; L03.317 - Cellulitis of buttock (4) Paraplegia: CODE(S): G82.20 - Paraplegia, unspecified PLAN: We discussed with Zak being admitted to the hospital for IV antibiotics and a surgical consult with Dr. Granados. He is agreeable but, he needs to go home first and take care of his dogs. He will return and will be a direct admit to Dr. Wayne on the hospitalist service with a consult to Dr. Granados. All his questions were answered.
== END 2021-02-16 23:59 ==
LOC: WC 13:00
PROVIDERS: Family Provider Internal Medicine; PCP Internal Medicine; Referring Provider Nurse Practitioner Family; Visit Provider Internal Medicine
DX: L89.313 Pressure ulcer of right buttock, stage 3 (principal); L89.892 Pressure ulcer of other site, stage 2; G82.20 Paraplegia, unspecified; K61.1 Rectal abscess; E11.9 Type 2 diabetes mellitus without complications; F32.9 Major depressive disorder, single episode, unspecified; F41.9 Anxiety disorder, unspecified; E66.9 Obesity, unspecified; Z68.41 Body mass index [BMI] 40.0-44.9, adult; Z99.3 Dependence on wheelchair; Z79.899 Other long term (current) drug therapy; Z87.440 Personal history of urinary (tract) infections
CPT/HCPCS: 11042; 87070; 87075; 87077; 87186; 87205

== ENCOUNTER 2021-02-12 16:16 | Inpatient (IN) | payer MEDICARE, SELFPAY ==
[2021-02-12 13:04] VITALS: BMI 43.4
[2021-02-12 16:23] VITALS: BMI 39.6
[2021-02-12 16:48] VITALS: BP 143/73; PULSE 116; RESP 16; TEMP 37.1; O2SAT 96
--- NOTE | 2021-02-12 17:21 | PCM.CONS.GEN ---
Assessment & Plan Assessment/Plan (1) Right ischial pressure sore, stage 4: (2) Pressure sore of left ischium, stage 4: (3) Type 2 diabetes mellitus: QUALIFIERS: Diabetes mellitus residential insulin use: without watermelon inspector use Diabetes mellitus complication status: with skin complications (4) Paraplegia: (5) Urinary incontinence, nocturnal enuresis: (6) Personal history of Methicillin resistant Staphylococcus aureus infection: (7) Smoker: (8) Osteomyelitis of pelvis: PLAN: Patient has persistent bilateral ischial pressure sores. I have seen him in the past and he has declined any operative intervention at that time. He comes in today from the [facility] Center with foul smelling drainage. His WBC was 16.7. He was started on Vancomycin and Meropenem. His ischial ulcerations have abnormal scar tissue present and periulcer maceration form persistent drainage. The right side appears much larger with exposed bone seen. The left side was larger in the past when I have seen him. It may appear healed but I suspect a much larger cavity on the inside that has abnormal scar tissue present. I anticipate involvement of the bone as well. Recommend excision bilateral ischial pressure sores with partial ostectomy for osteomyelitis. Postoperatively will begin wound care with the VAC. Will send soft tissue and bone to both Pathology to evaluate for cancer and osteomyelitis and to Microbiology for culture. A positive culture will necessitate antibiotic therapy. Anticipate increased metabolic demands from the pressure sores. Will check a Prealbumin and encourage nutritional supplementation with protein to help the healing process. His last CT Pelvis was back in 10/06. It was suggestive of osteomyelitis. Will order another one. After discharge, can followup at the Wound Center. Will discuss possible wound closure in the future with myocutaneous flaps. His HgbA1c from 02/12/21 was 6.3. For elective surgery, it needs to be less than 8. Patient was informed of the risks and complications of the procedure including alternatives to surgery. These were discussed with the patient personally. Patient voices understanding and wishes to proceed. Surgery will be done in next couple of says under general anesthesia. Encouraged patient to stop smoking as it may have deleterious effects on wound healing. There is also issues with nocturnal urinary incontinence. He straight catheterizes himself during the day without issues. At night when he is sleeping, he will have urinary accidents that moistens the surrounding skin of the pressure sores making them worse and less likely to heal. He had mentioned placing a bolivar catheter just at night with straight catheterization during the day. I told him I would check but I doubt insurance would cover 30 bolivar catheters per month. Another option is to place a bolivar watermelon inspector or continue straight catheterization during the day and placement of a [place] catheter just at night. Getting control of urinary leakage is imperative if there is any chance at healing these bilateral ischial pressure sores. We discussed the current risks associated with COVID-19. While it is understood that there is a community spread of COVID-19, the risk of liang COVID-19 while at [facility] ([facility]) is very low; however, the risk cannot be completely mitigated because of the community spread of the disease. We discussed in detail the risk of exposure to and/or potential harm posed by the COVID-19 virus with having a surgery/procedure at this time versus the risk of delaying the surgery/procedure. It is not possible to know either the risk of delaying the surgery or procedure or chance of getting an infection with perfect accuracy, but a joint decision was made to proceed at this time with the scheduled surgery/procedure as indicated on the consent form. Patient was notified that we will need to comply with any screening or testing [facility] wishes to perform or that surgery may be delayed for any positive results. HPI Consult Data Date of Consult: 02/13/21 PCP / Referring MD: MD Dr. Dejan Peres, Attending Care Provider: Dr. Dejan Wayne DO HPI Narrative Reason for Consultation: Bilateral ischial pressure sores. HPI Narrative: The patient is a 35 year old M who is a paraplegic and has diabetes mellitus and history of MRSA was recently admitted from the [facility]ound Center because of foul smelling drainage from his bilateral ischial pressure sores. He has had intermittent issues with urine leakage at night. He straight caths himself during the day without problem. I have seen him in 01/05 and in 10/06 and both times recommended excision of these pressure sores. He has declined thus far. Upon admission his WBC is 16.7. His HgbA1c from 02/12/21 is [address] His last CT and MRI Pelvis were back in 10/06. They were suggestive of osteomyelitis. Will repeat the scan. He denies fever. I was asked to evaluate this patient for surgical options for treatment. [facility] Medical History (Updated 02/13/21 @ 21:[address] Solitario Granados MD) Anxiety BiPAP (biphasic positive airway pressure) dependence Blood infection Cavernous hemangioma Depression High blood pressure Osteomyelitis of pelvis Paraplegia Personal history of Methicillin resistant Staphylococcus aureus infection Pressure sore of left ischium, stage 4 Recurrent infections Right ischial pressure sore, stage 4 Sleep apnea Smoker Smoker UTI (urinary tract infection) Home Medications nutritional supplements [Tang] 1 ea PO BID 02/12/21 [History Last Taken Unknown] psyllium [Metamucil] 1 packet PO DAILY 02/12/21 [History Last Taken Unknown] Allergy/AdvReac Type Severity Reaction Status Date / Time amoxicillin AdvReac Diarrhea Verified 04/17/20 14:05 Family History Mother Hypertension Father No problems noted. Surgical History Hx of tonsillectomy Social History Smoking Status: Current every day smoker tobacco type: cigarettes Tobacco: How many years used: 19 alcohol intake: never substance use type: does not use what type of physical activity do you participate in: none ROS ROS Narrative REVIEW OF SYSTEMS General - Denies fever, fatigue, and weight loss. Eyes - Denies cataracts and glaucoma. ENT - Denies nasal congestion and sore throat. Endocrine - Denies excessive thirst and urination. Skin - Denies suspicious lesions and skin cancer. Musculoskeletal - Denies joint pain, joint stiffness, weakness of muscles and joints, back pain, and arthritis. Neuro - Denies headaches. Cardiovascular - Denies chest pain, fatigue, and shortness of breath with exertion. Psych - Denies anxiety and depression. Respiratory - Denies chronic cough and shortness of breath. Gastrointestinal - Denies nausea, vomiting, diarrhea, and constipation. Hematologic - Denies abnormal bruising and bleeding. Genitourinary - Denies hematuria and urinary frequency. Physical Exam Narrative PHYSICAL EXAMINATION General - Alert and Oriented. HEENT - PERRL. EOMI. Throat is clear. Neck - Supple and nontender. No cervical adenopathy. Lungs - Clear to auscultation. Heart - Regular rate and rhythm. Abdomen - Soft and nondistended. Extremities - No axillary adenopathy. Radial pulses are palpable. No inguinal adenopathy. Femoral pulses are palpable. Buttock - Has bilateral ischial pressure sores. On the right side it measures 5 x 4 x 3 cm. Extends through the muscle down to the bone. Some undermining noted. Periulcer area is quite macerated. No purulent drainage was appreciated. It is a Stage IV pressure sore. On the left side, there is abnormal scar tissue and macerated tissue. It appears to be healed on the outside except for the central area where the macerated scar tissue has migrated inward toward the underlying bone. Was a Stage IV pressure sore in the past. Neuro - CN II-XII grossly intact. Has paraplegia. Psych - Normal mood and affect. Lab / Micro Data Attestation: I reviewed the patient's lab results. Result Diagrams: 02/12/21 16:55 02/12/21 16:55 Procedure Criteria Type of Procedure Procedure Type: Elective Elective Risks - COVID COVID Risk Discussion: The surgeon/proceduralist and patient have discussed in detail the risk of exposure to and/or potential harm posed by the COVID-19 virus with having a surgery/procedure at this time versus the risk of delaying the surgery/procedure. It is not possible to know either the risk of delaying the surgery or procedure or chance of getting an infection with perfect accuracy, but a joint decision was made between the patient and the surgeon/proceduralist to proceed at this time with the scheduled surgery/procedure as indicated on the consent form. Charges/Coding Visit Charges Inpatient E&M: 44401 Init Hosp L2 (ICD-10 - L89.314, L89.324, M86.9, E11.9, G82.20, N39.44, Z86.14, F17.200)
[2021-02-12 17:24] LABS: Absolute Lymphocyte Count 2.27 X10^3/uL (0.83-4.51); Absolute Neutrophil Count 13.1 X10^3/uL (2.0-7.7); Basophil# 0.07 X10^3/uL; Basophil% 0.4 % (0-1); Eosinophil# 0.17 X10^3/uL; Hematocrit 43.8 % (40-54); Lymphocyte # 2.27 X10^3/ul (0.83-4.51); Lymphocyte % 13.6 % (19-41); Mean Corpuscular Hgb 27.7 pg (27.0-32.0); Mean Corpuscular Volume 86.7 fL (80-94); Mean Platelet Vol. 11.1 fl (6.2-12.0); Monocyte# 1.09 X10^3/uL; Monocyte% 6.5 % (0-10); NRBC Flagged by Analyzer 0 % (0-5); Neutrophil # 13.06 X10^3/uL (2.7-7.7); Neutrophil % 78.1 % (47-70); Platelet Count 330 K/mm3 (150-450); RBC Distribution Width CV 13.8 % (11.6-14.6); Red Blood Count 5.05 M/mm3 (4.6-6.2); White Blood Count 16.7 K/mm3 (4.4-11.0)
--- NOTE | 2021-02-12 17:44 | PCM.HP.STD ---
Documented by User: Rober HARTMAN 02/12/21 18:11 HPI - General General Date of Admission: 02/12/21 Date of Service: 02/12/21 Chief Complaint: Wound of the right inner gluteal fold HPI Narrative GISELE KAY is a 35-year-old male who is a direct admission for wound of the right intergluteal fold, that follows with Dr. Lara for wound care. He has had his current ulcers for over 2 months. He has been treating the areas with silvercell dressings and recently was placed on an antibiotic by his PCP. The left lower leg ulcers appear to be from pressure. He is unsure of how they developed. His ulcers on his sacrum and right buttock are from pressure and friction from transferring from his wheelchair to chair with his slide board. He also has an area that was from a erma-rectal abscess that is still open and draining. He reports that he is independent in his ADL's but does have a nurse that comes to care for him daily in the morning for a short time daily. Of note, patient is a paraplegic and is wheelchair-bound due to a cavernous hemangioma of the spine. Vital signs on admission were tachycardic at a rate of 115 and hypertensive at 143/73. Patient is currently satting 96% on room air and is afebrile. CBC on admission demonstrates a leukocytosis at 16,000. No other labs available at this time. [facility] Medical History (Updated 02/13/21 @ 16:[address] Solitario Granados MD) Anxiety BiPAP (biphasic positive airway pressure) dependence Blood infection Cavernous hemangioma Depression High blood pressure Paraplegia Pressure sore of left ischium, stage 4 Recurrent infections Right ischial pressure sore, stage 4 Sleep apnea Smoker UTI (urinary tract infection) Home Medications nutritional supplements [Tang] 1 ea PO BID 02/12/21 [History Last Taken Unknown] psyllium [Metamucil] 1 packet PO DAILY 02/12/21 [History Last Taken Unknown] Allergy/AdvReac Type Severity Reaction Status Date / Time amoxicillin AdvReac Diarrhea Verified 04/17/20 14:05 Family History (Updated 02/12/21 @ 17:57 by Rober HARTMAN) Mother Hypertension Father No problems noted. Surgical History (Updated 02/12/21 @ 17:59 by Rober HARTMAN) Hx of tonsillectomy Social History Smoking Status: Current every day smoker tobacco type: cigarettes Tobacco: How many years used: 19 alcohol intake: never substance use type: does not use what type of physical activity do you participate in: none ROS Review of Systems ROS Unobtainable: Denies due to encephalopathy, due to endotracheal tube, due to mental condition, due to mental status or other Constitutional Constitutional: Denies anorexia, change in weight, chills, fatigue, fever(s), malaise, night sweats, weakness or other Eyes Eyes: Denies blurry vision, change in eye color, change in vision, discharge from eye(s), double vision, erythema, eye pain, loss of vision or other ENT HEENT: Denies abnormal hearing, dysphagia, ear pain, epistaxis, headache(s), hearing loss, nasal congestion, nasal discharge, post nasal drip, sinus pressure, sore throat or other Cardiovascular Cardiovascular: Denies chest pain, claudication, dyspnea on exertion, edema, lightheadedness, orthopnea, palpitations, paroxysmal nocturnal dyspnea, rapid heart rate, syncope or other Respiratory/Chest Respiratory/Chest: Denies cough, dyspnea, excessive phlegm production, hemoptysis, productive cough, shortness of breath at rest, shortness of breath with exertion, wheezing or other Gastrointestinal Gastrointestinal: Denies abdominal pain, coffee ground emesis, constipation, diarrhea, dyspepsia, hematemesis, hematochezia, loose stools, melena, nausea, vomiting or other Genitourinary Genitourinary: Denies burning urination, difficulty urinating, dysuria, hematuria, nocturia, urinary frequency, urinary hesitancy, urinary incontinence, urinary urgency or other Musculoskeletal Musculoskeletal: Denies arthralgias, back pain, joint pain, joint stiffness, joint swelling, myalgias, neck pain or other Neurologic Neurologic: Denies abnormal gait, abnormal speech, confusion, disequilibrium, dizziness, focal weakness, headache(s), numbness, paresthesias, seizure-like activity, seizures, syncope, tingling, tremor(s) or other Psychiatric Psychiatric: Denies anxiety, depression, homicidal ideation, suicidal ideation or other Endocrine Endocrinology: Denies change in body appearance, cold intolerance, excessive sweating, heat intolerance, polydipsia, polyuria or other Hematologic/Lymphatic Hematologic/Lymphatic: Denies anemia, easy bleeding, easy bruising, lymphadenopathy or other Allergic/Immunologic Allergic/Immunologic: Denies rhinitis, hives, eczemia, asthma or other Vital Signs Vital Signs Vital Signs: 02/12/21 16:48 Temperature 98.8 F Temperature Source Oral Pulse Rate 116 H Respiratory Rate 16 Blood Pressure 143/73 H Blood Pressure Mean 96 Blood Pressure Source Monitor Blood Pressure Position Semi-Fowlers Blood Pressure Location Right Arm Pulse Ox 96 Oxygen Delivery Method Room Air Weight Weight: 284 lb 4.8 oz Body Mass Index (BMI) 39.6 Physical Exam Const alert and oriented x3 General Appearance: cooperative HEENT normocephalic, head/scalp atraumatic and hearing grossly normal bilaterally Eyes PERRL, EOMs intact bilaterally and conjunctivae normal Neck no lymphadenopathy, supple and no JVD Resp normal respiratory effort, no retractions, no use of accessory muscles and clear to auscultation bilaterally Cardio no murmurs and no rub Rate: tachycardic GI normal to inspection, nondistended, normoactive bowel sounds and soft to palpation Extremity normal to inspection, full ROM and no clubbing, cyanosis or edema Skin no rashes or lesions noted, no wounds, skin turgor normal and no jaundice Neuro oriented x3 Neuro Narrative: Paraplegia of the lower extremities. Sensorium / Orientation: awake and alert Psych affect normal Results Lab / Micro Data Result Diagrams: 02/12/21 16:55 02/12/21 16:55 Labs: Laboratory Results - last 24 hr 02/12/21 16:55: WBC 16.7 H, RBC 5.05, Hgb 14.0, Hct 43.8, MCV 86.7, MCH 27.7, MCHC 32.0, RDW Std Deviation 44.0 H, RDW Coeff of Darrell 13.8, Plt Count 330, MPV 11.1, Immature Gran % (Auto) 0.400, Neut % (Auto) 78.1 H, Lymph % (Auto) 13.6 L, [place] % (Auto) 6.5, Eos % (Auto) 1.0, Baso % (Auto) 0.4, Absolute Neuts (auto) 13.1 H, Absolute Lymphs (auto) 2.27, Nucleated RBC % 0 Assessment & Plan Assessment/Plan (1) High blood pressure: QUALIFIERS: Hypertension type: essential hypertension Qualified Code(s): I10 - Essential (primary) hypertension (2) Cavernous hemangioma: (3) Anxiety and depression: (4) Type 2 diabetes mellitus: QUALIFIERS: Diabetes mellitus complication status: with skin complications Diabetes mellitus superintendent container terminal insulin use: without superintendent container terminal use (5) 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 Patient will be admitted for management of wound and possible surgical intervention by plastics. 1) Sepsis secondary to wound of the right inner gluteal fold Patient presents for management of a wound of the right intergluteal fold, which he has been getting managed by the wound center for the past 2 months. Patient believes that the wound is a result of pressure and friction from transferring from wheelchair to other services with his slide board. Patient meets SIRS criteria with an elevated heart rate of 115 bpm and a leukocytosis at 16,000. Plan; admit to [facility] for possible surgical intervention by plastics, plastics consult ordered, wound care ordered, CBC and BMP in a.m., PT/OT eval ordered. 2) DM2 Complicates care for #1. Patient reports being prescribed insulin and Metformin by his primary care provider, although reports not being compliant with regimen. Patient reports last hemoglobin A1c was 7.3. DVT prophylaxis - Lovenox CODE STATUS: Full code Vaccination status: Patient has not been vaccinated for COVID-19 and was not interested in receiving information at this time. Patient seen by Rober Baer PA-C, under the supervision of Dr. Wayne. Documented by User: Dr. Dejan Wayne, 02/13/21 18:53 HPI - General General Date of Admission: 02/12/21 [facility] Medical History (Updated 02/13/21 @ 16:[address] Solitario Granados MD) Anxiety BiPAP (biphasic positive airway pressure) dependence Blood infection Cavernous hemangioma Depression High blood pressure Paraplegia Pressure sore of left ischium, stage 4 Recurrent infections Right ischial pressure sore, stage 4 Sleep apnea Smoker UTI (urinary tract infection) Home Medications nutritional supplements [Tang] 1 ea PO BID 02/12/21 [History Last Taken Unknown] psyllium [Metamucil] 1 packet PO DAILY 02/12/21 [History Last Taken Unknown] Allergy/AdvReac Type Severity Reaction Status Date / Time amoxicillin AdvReac Diarrhea Verified 04/17/20 14:05 Family History (Updated 02/12/21 @ 17:57 by Rober HARTMAN) Mother Hypertension Father No problems noted. Surgical History (Updated 02/12/21 @ 17:59 by Rober HARTMAN) Hx of tonsillectomy Social History Smoking Status: Current every day smoker tobacco type: cigarettes Tobacco: How many years used: 19 alcohol intake: never substance use type: does not use what type of physical activity do you participate in: none Results Lab / Micro Data Result Diagrams: 02/12/21 16:55 02/12/21 16:55 Charges/Coding Addendum Addendum: Patient was seen and examined today independently of Rober Baer, he was admitted directly to [place] [address] due to a deep wound of his right lower buttocks/ischium area, I was contacted by the wound center physician today and it was requested that the patient be admitted for treatment of a nonhealing deep wound to this area that the physician felt was infected. It was also requested the plastic surgery see the patient and I discussed the patient's care with the plastic surgeon miguelina briefly. I have ordered a PICC line for the patient because the patient tells this examiner that the patient has poor vein access and I believe the patient will need prolonged antibiotic administration. On examination he appeared in good health and spirits. Vital signs as documented. Skin warm and dry, patient's right buttock/ischial wound was not examined at the time of this examination. Neck without JVD, neck was supple, trachea midline, thyroid was normal. Lungs clear bilaterally, normal air movement was noted. Heart exam notable for regular rhythm, normal sounds and absence of murmurs, rubs or gallops. Abdomen unremarkable and without evidence of organomegaly, masses, or abdominal aortic enlargement. Bowel sounds are present, abdomen is not distended. Extremities-there is generalized atrophy of both lower extremities neuro: Cranial nerves II through XII are grossly intact, no focal motor deficits were noted, sensation to light touch and pinprick intact, motor exam 5/5 throughout. Psych: Patient is alert and oriented x3, he does not appear anxious or depressed, he does not appear agitated. Patient was seen by plastic surgery today and the patient's wound will have to be debrided. I have reviewed Rober Baer's history and physical including his medical assessment and plan of care and endorse it. Visit Charges Inpatient E&M: 10654 Init Hosp L3
[2021-02-12 18:02] LABS: ALB/GLOB Ratio 0.6 RATIO (0.9-2.4); AST(SGOT) 14 U/L (15-37); Alanine Aminotransfer ALT/SGPT 41 U/L (16-61); Albumin, Serum 3.1 g/dL (3.2-5.0); Alkaline Phosphatase 135 U/L (45-117); Anion Gap 7 (5-15); BUN 14 mg/dL (7-18); BUN/Creat Ratio 23.4 RATIO (10-20); Calcium,Total 8.7 mg/dL (8.5-10.1); Chloride 100 mmol/L (98-107); EST Glomerular Filtration Rate 161 mL/min (>60); Est Glom Filt Rate - Afr Amer 195 mL/min (>60); Estimated Creatinine Clearance 179.53 ml/min; Globulin 4.8 g/dL (2.2-4.2); Glucose 181 mg/dL (74-106); Potassium 3.7 mmol/L (3.5-5.1); Protein, Total 7.9 g/dL (6.4-8.2); Sodium Level 135 mmol/L (136-145)
[2021-02-12] MEDS: Enoxaparin 40 MG/0.4 ML Syringe SC (18:03)
--- NOTE | 2021-02-12 18:51 | NURSING ---
SPECIALTY MATTRESS DELIVERED. NUT STEAMER HERE TO PLACE PICC. PT CURRENTLY IN BATHROOM TO STRAIGHT CATH.
[2021-02-12 21:55] LABS: Bedside Glucose 172 mg/dL (70-110)
[2021-02-12 22:00] VITALS: BP 125/79; PULSE 101; RESP 17; TEMP 36.8; O2SAT 100
[2021-02-12] MEDS: 0.9% Saline Lock 10 ML Syringe IV (22:25)
[2021-02-13 03:00] VITALS: BP 122/74; PULSE 96; RESP 18; TEMP 36.4; O2SAT 98
[2021-02-13 06:55] LABS: Bedside Glucose 150 mg/dL (70-110)
[2021-02-13] MEDS: Glucerna Shake 120 ML LIQUID PO ×2 (09:05→15:14)
[2021-02-13] MEDS: Enoxaparin 40 MG/0.4 ML Syringe SC (09:05)
[2021-02-13] MEDS: Psyllium 1 PACKET PO (09:05)
[2021-02-13 09:07] VITALS: BP 142/85; PULSE 91; RESP 16; TEMP 36.6; O2SAT 99
--- NOTE | 2021-02-13 09:46 | NURSING ---
wound photo: left lateral lower leg
--- NOTE | 2021-02-13 09:47 | NURSING ---
wound photo: right ischium
[2021-02-13 10:41] LABS: M R Staph aureus DNA By PCR POSITIVE (Negative); Probe Check PASS; Specimen Processing Control PASS; Staph aureus DNA By PCR POSITIVE (Negative)
--- NOTE | 2021-02-13 11:05 | CASEMGMT ---
AURORA BUTLER Assessment Face to Face with pt for initial transition planning/care coordination assessment. AURORA BUTLER introduced self and role at [facility], pt voices understanding and consents to assessment. Pt is A/O x4 and answers all questions appropriately at this time. Pt lying in bed in no distress with mother at bedside. Care providers, pharmacy, and demographics verified/updated. Admitting Dx: Rt ischial deep wound PCP:Ganesh Specialists: Jane at [facility] weekly. Preferred Pharmacy: [facility] Retail Insurance: Chavo CR[employer] Prescription Benefit: yes LW/HPOA: Pt denies having a LW/DPOA LNOK: Rima Portillo, exwife; Tori Portillo, mother Living Arrangements: Pt lives alone in a single story house with ramps to enter. Pt reports being I in ADL's and denies concerns at home. Transportation: Pt drives self and denies concerns with transportation. DME/HHC/SNF: Pt has a motorized wheelchair, grab bars in the bathroom and a shower chair. Pt has had [facility] in the past but not with this insurance. Pt denies any hx of SNF stays. Pt states he pays privately for a nurse daily to perform wound care and toileting. Pt states he has had a difficult time finding a nurse from a [facility] that will service him with his insurance and come to his location as it is in [place]. Patient was provided a list of [facility] providers including quality and resource use data and consistent with the patient?s preferred geographic region, medical needs, and insurance network. Pt preferred provider is [facility]. Pt states he really fine with any agency if it can be set up. Pt states he has had a picc line before and has been independent with administering his IV infusions. He has had [facility] in the past and would like to use them again if needed. Discussed the possibility of potential need for IV atb as well as wound vac. Pt states no concerns with going home at time of dc. Pt states no further concerns/needs. CM to follow. Advised pt to ask CM if any further question/concerns/needs arise, voices understanding. Pt Goal: Home with [facility] Plan: Home with [facility] 1135- TC to Mana at [facility] to make referral. She is unable to accept patient without knowing his dc date. Aware that pt will be going to surgery on Thursday and it is unknown if pt will need IV antibiotics. Spoke with Veronika wound care nurse and Mallory Edward [employer] who states that they are moving up pt surgery to tomorrow and pt should be able to dc on Thursday with home vac. TC alyse Adair at [facility] and left message with this information. Awaiting acceptance.
--- NOTE | 2021-02-13 12:16 | PCM.RX.CS ---
Consult Pharmacy has been consulted to manage selected antiobiotic: Vancomycin Type of Consult: New start Suspected Infection: Sepsis, Skin/Soft tissue Labs: Sodium 135 mmol/L (136-145) L 02/12/21 16:55 Potassium 3.7 mmol/L (3.5-5.1) 02/12/21 16:55 Chloride 100 mmol/L (98-107) 02/12/21 16:55 Carbon Dioxide 28.0 mmol/L (21.0-32.0) 02/12/21 16:55 Anion Gap 7 (5-15) 02/12/21 16:55 BUN 14 mg/dL (7-18) 02/12/21 16:55 Creatinine 0.60 mg/dL (0.70-1.30) L 02/12/21 16:55 Est GFR (MDRD) Af Amer 195 mL/min (>60) 02/12/21 16:55 Est GFR (MDRD) Non-Af 161 mL/min (>60) 02/12/21 16:55 BUN/Creatinine Ratio 23.4 RATIO (10-20) H 02/12/21 16:55 Glucose 181 mg/dL (74-106) H 02/12/21 16:55 Microbiology: Microbiology 02/13/21 08:30 Wound - Ischium Gram Stain - Final Weight used for dosin kg Estimated Creatinine Clearance: >100ML/MIN Goal Trough: 15-20 mcg/mL Pharmacy Plan for Drug Dosing: Give initial dose of 2000mg IV x1, then continue with 1500mg IV q8h. Noting that the patient is a paraplegic which could lead to an overestimation of CrCl, the patient has been on this dosing before at [facility] so we will start with that again. Will check a trough level before the 4th overall dose tomorrow. Pharmacy Service will continue to monitor and adjust dosing as required. Follow-Up Labs: Trough Vancomycin Labs to be done on [date and time ordered]: 02/14/21 11:30
[2021-02-13 12:25] LABS: Bedside Glucose 247 mg/dL (70-110)
--- NOTE | 2021-02-13 12:57 | PN.HOSP_ITS ---
Documented by User: Rober HARTMAN 02/13/21 13:11 Subjective Subjective Patient is a 35-year-old male comfortably resting in bed, alert and orient x3. Patient denies any change or progression of symptoms from yesterday. Denies chest pain, shortness of breath, palpitations, hemoptysis, sputum production, f ever, chills, N/V/D. Objective Data Objective Data Vital Signs: Vital Signs Temp Pulse Resp BP Pulse Ox 97.8 F 91 16 142/85 H 99 02/13/21 09:07 02/13/21 09:07 02/13/21 09:07 02/13/21 09:07 02/13/21 09:07 Oxygen Delivery Method Room Air Weight: 284 lb 4.789 oz Body Mass Index (BMI) 39.6 Intake & Output: Intake and Output for Last 24 Hours 02/11/21 02/12/21 02/13/21 23:59 23:59 23:59 Intake Total 1290 / 1290 Output Total 1550 / 1550 Balance -260 / -260 Lab / Micro Data Result Diagrams: 02/12/21 16:55 02/12/21 16:55 Labs: Laboratory Results - last 24 hr 02/12/21 16:55: WBC 16.7 H, RBC 5.05, Hgb 14.0, Hct 43.8, MCV 86.7, MCH 27.7, MCHC 32.0, RDW Std Deviation 44.0 H, RDW Coeff of Darrell 13.8, Plt Count 330, MPV 11.1, Immature Gran % (Auto) 0.400, Neut % (Auto) 78.1 H, Lymph % (Auto) 13.6 L, [place] % (Auto) 6.5, Eos % (Auto) 1.0, Baso % (Auto) 0.4, Absolute Neuts (auto) 13.1 H, Absolute Lymphs (auto) 2.27, Nucleated RBC % 0 02/12/21 16:55: Sodium 135 L, Potassium 3.7, Chloride 100, Carbon Dioxide 28.0, Anion Gap 7, BUN 14, Creatinine 0.60 L, Estim Creat Clear Calc 179.53, Est GFR (MDRD) Af Amer 195, Est GFR (MDRD) Non-Af 161, BUN/Creatinine Ratio 23.4 H, Glucose 181 H, Calcium 8.7, Total Bilirubin 0.40, AST 14 L, ALT 41, Alkaline Phosphatase 135 H, Total Protein 7.9, Albumin 3.1 L, Globulin 4.8 H, Albumin/Globulin Ratio 0.6 L 02/12/21 21:48: POC Glucose 172 H 02/13/21 06:51: POC Glucose 150 H 02/13/21 08:30: S.aureus Protein A PCR POSITIVE H, MRSA (PCR) POSITIVE H 02/13/21 11:50: POC Glucose 247 H Micro: Microbiology 02/13/21 08:30 Wound - Ischium Gram Stain - Final Physical Exam Const alert, oriented x3 and no apparent distress HEENT head/scalp atraumatic and moist oral mucous membranes Head and Scalp: normocephalic Eyes EOMs intact bilaterally and conjunctivae normal Neck no lymphadenopathy, supple and no JVD Resp normal respiratory effort, no retractions and no use of accessory muscles Cardio regular rate, regular rhythm, no murmurs and no JVD GI normal to inspection, nondistended, normoactive bowel sounds, soft to palpation and non-tender Extremity normal to inspection, full ROM and no clubbing, cyanosis or edema Skin Skin Narrative: Unable to assess wounds on the right ischium and left lateral lower leg as they were already appropriately dressed by the wound staff. 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 Discharge plan: Plan is for patient to discharge home after successful recovery from surgery. 1) Right ischial and LLE wound. No longer meets SIRS criteria for sepsis as tachycardia has resolved. CBC not obtained on 02/13, however previous WBC demonstrated leukocytosis of 16,000. Staph aureus and MRSA screening positive. Plastics and ID following. Plan; remain admitted to [facility] while awaiting potential plastic surgery on 02/15, vancomycin and meropenem initiated, continue to monitor CBC and BMP, wound care consult ordered. 2) DM2 Complicates care for #1. Patient reports being prescribed insulin and Metformin by his primary care provider, although reports not being compliant with regimen. Patient reports last hemoglobin A1c was 7.3. DVT prophylaxis - Lovenox Patient seen by Rober Baer PA-C, under the supervision of Dr. Wayne. Documented by User: Dr. Dejan Wayne DO 02/13/21 18:51 Objective Data Lab / Micro Data Result Diagrams: 02/12/21 16:55 02/12/21 16:55 Charges/Coding Addendum Addendum: Patient was seen and examined today independently of Rober Baer, his wound culture resulted with MRSA today, I have placed him on vancomycin and I had infectious diseases see the patient. On examination he appeared in good health and spirits. Vital signs as documented. Skin warm and dry and without overt rashes, there is a deep wound n oted on the ischial/lower buttock area on the right side, this is several centimeters in length by several centimeters deep, there is also a left outer leg wound in the lateral aspect of the patient's left lower leg.Neck- without JVD, neck was supple, trachea midline, thyroid was normal. Lungs clear bilaterally, normal air movement was noted. Heart exam notable for regular rhythm, normal sounds and absence of murmurs, rubs or gallops. Abdomen unremarkable and without evidence of organomegaly, masses, or abdominal aortic enlargement. Bowel sounds are present, abdomen is not distended. Extremities- patient exhibits atrophy of both lower legs. Neuro: Cranial nerves II through XII are grossly intact, no focal motor deficits were noted, sensation to light touch and pinprick intact, motor exam 5/5 throughout. Psych: Patient is alert and oriented x3, he does not appear anxious or depressed, he does not appear agitated. It is planned that the patient will have surgery for debridement of his right ischial/lower buttock deep wound this or Thursday. I have reviewed Rober Baer's progress note including his medical assessment and plan of care and endorse it. Visit Charges Inpatient E&M: 25898 Subs Hosp L2
[2021-02-13 14:00] VITALS: BP 121/72; PULSE 102; RESP 18; TEMP 36.6; O2SAT 97
--- NOTE | 2021-02-13 14:20 | CON.PCM.ID_ITS ---
Assessment & Plan Assessment/Plan (1) Paraplegia: (2) Sepsis: PLAN: sepsis suspected to be due to infected sacral ulcer - Dr. Granados following, wound cx pending, on empiric vanc/tori. Encouraged him to get covid vaccine after discharge. Will follow, thank you HPI Consult Data Date of Consult: 02/13/21 HPI Narrative HPI Narrative: GISELE KAY, is a 35 M with paraplegia, prior h/o sacral osteo, presented from wound center with one month of worsening sacral ulcer. No fever or chills. No n/v/d. No recent abx. Has not gotten covid vaccine. Admitted on vanc/meropenem. Full ROS performed and neg except as noted above. [facility] Medical History Anxiety BiPAP (biphasic positive airway pressure) dependence Blood infection Cavernous hemangioma Depression High blood pressure Paraplegia Recurrent infections Sleep apnea Smoker UTI (urinary tract infection) Home Medications nutritional supplements [Tang] 1 ea PO BID 02/12/21 [History Last Taken Unknown] psyllium [Metamucil] 1 packet PO DAILY 02/12/21 [History Last Taken Unknown] Allergy/AdvReac Type Severity Reaction Status Date / Time amoxicillin AdvReac Diarrhea Verified 04/17/20 14:05 Family History (Updated 02/12/21 @ 17:57 by Rober HARTMAN) Mother Hypertension Father No problems noted. Surgical History (Updated 02/12/21 @ 17:59 by Rober HARTMAN) Hx of tonsillectomy Social History Smoking Status: Current every day smoker tobacco type: cigarettes Tobacco: How many years used: 19 alcohol intake: never substance use type: does not use what type of physical activity do you participate in: none Physical Exam Const alert, oriented x3 and no apparent distress General Appearance: cooperative Exam Limitations: no limitations HEENT head/scalp atraumatic Eyes PERRL and EOMs intact bilaterally Neck supple and No nodes Resp normal air movement and clear to auscultation bilaterally Cardio regular rate and regular rhythm GI normal to inspection, nondistended, normoactive bowel sounds Extremity General Extremity: edema Skin Skin Narrative: reviewed wound photos Neuro CN's II-XII intact bilaterally Lab / Micro Data Result Diagrams: 02/12/21 16:55 02/12/21 16:55 Labs: Laboratory Results - last 24 hr 02/12/21 16:55: WBC 16.7 H, RBC 5.05, Hgb 14.0, Hct 43.8, MCV 86.7, MCH 27.7, MCHC 32.0, RDW Std Deviation 44.0 H, RDW Coeff of Darrell 13.8, Plt Count 330, MPV 11.1, Immature Gran % (Auto) 0.400, Neut % (Auto) 78.1 H, Lymph % (Auto) 13.6 L, [place] % (Auto) 6.5, Eos % (Auto) 1.0, Baso % (Auto) 0.4, Absolute Neuts (auto) 13.1 H, Absolute Lymphs (auto) 2.27, Nucleated RBC % 0 02/12/21 16:55: Sodium 135 L, Potassium 3.7, Chloride 100, Carbon Dioxide 28.0, Anion Gap 7, BUN 14, Creatinine 0.60 L, Estim Creat Clear Calc 179.53, Est GFR (MDRD) Af Amer 195, Est GFR (MDRD) Non-Af 161, BUN/Creatinine Ratio 23.4 H, Glucose 181 H, Calcium 8.7, Total Bilirubin 0.40, AST 14 L, ALT 41, Alkaline Phosphatase 135 H, Total Protein 7.9, Albumin 3.1 L, Globulin 4.8 H, Albumin/G lobulin Ratio 0.6 L 02/12/21 21:48: POC Glucose 172 H 02/13/21 06:51: POC Glucose 150 H 02/13/21 08:30: S.aureus Protein A PCR POSITIVE H, MRSA (PCR) POSITIVE H 02/13/21 11:50: POC Glucose 247 H Micro: Microbiology 02/13/21 08:30 Wound - Ischium Gram Stain - Final
--- NOTE | 2021-02-13 15:24 | CASEMGMT ---
Received tc back from Mana at [facility] who states they are unsure if they are able to take the patient until a dc date is known and it is known if the patient will need IV antibiotics.
--- NOTE | 2021-02-13 16:46 | CT_ITS ---
STUDY: CT PELVIS WITHOUT CONTRAST REASON FOR EXAM: Male, 35 years old. Ischial pressure sores and osteomyelitis RADIATION DOSAGE (If Supplied By Facility): CTDIvol = ( 40.76 ) mGy, DLP = ( 2097.50 ) mGycm TECHNIQUE: Transaxial imaging of the pelvis was performed without oral contrast, and without intravenous administration of contrast material. Multiplanar coronal and sagittal images were reformatted. Individualized dose optimization techniques were used for this CT. COMPARISON: MRI of the pelvis, 09/29/2019. CT of abdomen and pelvis, 09/28/2019 FINDINGS: The lower portion of the liver is grossly normal. Normal gallbladder. Normal visualized pancreas and lower spleen. The lower kidneys are grossly normal. No hydronephrosis or ureteral abnormality. The urinary bladder is poorly distended and demonstrates a diffusely thickened wall. Small prostate. Normal visualized small intestine. Normal visualized colon. Free air or free fluid seen within the pelvis. There is no pelvic mass lesion or lymphadenopathy. Normal visualized pelvic arteries. Normal abdominal wall. There is PA decubitus ulcer in the lower right buttock extending upward to the initial tuberosity. There are destructive changes posterior aspect of the issue tuberosity bony densities surrounding soft tissues. Minimal irregularity on the posterior left initial tuberosity without associated decubitus ulcer. There are also nonvisualization of the distal coccygeal segments. There is soft tissue stranding extending to the posterior rectum and coccyx scattered droplets of gas suggesting ulcer. There are degenerative changes of the lumbar spine. Degenerative changes of the hips are noted. CT/Pelvis without IV Contrast IMPRESSION: 1. Large decubitus ulcer with bony destruction of the posterior right ischial tuberosity consistent with osteomyelitis. 2. Soft tissue densities suggesting ulcer extending to the posterior rectal and coccyx. There is destruction of the distal coccygeal segments. 3. Thick-walled partially collapsed urinary bladder. Electronically Signed: Dwight Aguirre DO at 18:29 EDT Tel [phone], Service support ,
[2021-02-13 17:15] LABS: Bedside Glucose 160 mg/dL (70-110)
[2021-02-13 19:53] LABS: Hemoglobin A1c 6.3 % (3.8-5.6)
[2021-02-13 20:00] VITALS: BP 133/68; PULSE 89; RESP 16; TEMP 36.7; O2SAT 96
[2021-02-13] MEDS: DAKIN'S SOL HALF STRENGTH (=0.25%) 1 APPLIC TOPICAL (22:55)
[2021-02-13 23:31] LABS: Bedside Glucose 229 mg/dL (70-110)
[2021-02-14] VITALS (12 sets, daily range): BP systolic 120–145; BP diastolic 54–81; PULSE 75–96; RESP 16–18; TEMP 36.2–37.1; O2SAT 95–100; BMI 39.6
--- NOTE | 2021-02-14 | PRES_PTH ---
PATIENT: GISELE KAY LOC: MS3 U#:[id number] AGE/SX: 35/M ROOM: MO317 RE02/12/[address]: Dr. Ilan Pichardo DO : 1985 BED: 1 DIS: 02/18/2021 SPEC #: [id number] RECD: 02/15/21 06:35 STATUS: ROCHELLE REChiquita #: [id number] TEVIN: 02/14/21 00:[address]: Solitario Granados DEPT: SURGICAL PATHOLOGY RECD BY: Varghese De Paz ENTERED: 02/15/21 08:08 SP TYPE: PRESS SORE OTHR DR: MD Dr. Solitario Peres MD Dr. Mark Tereletsky, DO Dr. Robert Leininger, MD Tissues: A - Ischium, NOS B - Ischium, NOS Procedures: Decalcification bone/plaque Surgery Specimen Level IV Comments: @ Ordering doctor for DEC edited from to @ by UNIQUE at 02/15/21 1436 @ Ordering doctor for SUIV edited from to @ by UNIQUE at 02/15/21 1436 @ Submitting doctor edited from to DR.[email or web address] Masterson by UNIQUE at 02/15/21 1436 HEADER OPERATION: Excision, ischial pressure sore PRE-OP DIAGNOSIS: Bilateral ischial pressure sores TISSUE SUBMITTED: A ? Soft tissue right ischial area, B ? Bone right ischial area MICROSCOPIC DIAGNOSIS A. Skin and soft tissue of right ischial region, excision: Ulceration with associated acute and chronic inflammation and dystrophic microcalcifications. Verrucoid epithelial hyperplasia. B. Bone right ischial region, biopsy: Consistent with acute and chronic osteomyelitis. AM:fredrick 02/20/2021 COMMENT Case has been reviewed in consultation with Dr. Hernandez who concurs with the above diagnosis. IDC:SJ MICROSCOPIC DESCRIPTION Slides are reviewed. GROSS DESCRIPTION A - Received in fixative is one container labeled with the patient's name and designated soft tissue right ischial area. The specimen consists of a piece of skin with underlying tissue measuring 10 x 5.5 cm and up to 5 cm in thickness. Also present in the container are four variable sized pieces of soft tissue measuring in aggregate 7 x 5 x 2 cm. The largest piece shows a focal area of ulceration. No mass lesion is identified. [employer]gr[employer] Manager sections are submitted in three cassettes. B - Received in fixative is one container labeled with the patient's name and designated bone right ischial area. The specimen consists of three variable pieces of bone that in aggregate measure 3 x 2.5 x 1 cm. The entire specimen is submitted in three cassettes after decalcification. / SJ:rg 02/15/21 TC:2 CPT: 71343 x2, 31449
--- NOTE | 2021-02-14 06:00 | EKG12_ITS ---
Test Reason : AM EKG Blood Pressure : / mmHG Vent. Rate : 092 BPM Atrial Rate : 092 BPM P-R Int : 150 ms QRS Dur : 072 ms QT Int : 354 ms P-R-T Axes : 073 082 070 degrees QTc Int : 437 ms Normal sinus rhythm Normal ECG When compared with ECG of 11-NOV-2018 11:56, Nonspecific T wave abnormality no longer evident in Inferior leads Nonspecific T wave abnormality no longer evident in Anterolateral leads Confirmed by CHERI RAE, WILL ([id number]), sound editor MACKENZIE OLEARY ([id number]) on 02/18/2021 10:42:39 AM Referred By: Dejan Weems Confirmed By:YUE ALONZO MD
[2021-02-14 07:10] LABS: Anion Gap 5 (5-15); BUN 10 mg/dL (7-18); BUN/Creat Ratio 37.9 RATIO (10-20); Calcium,Total 8.5 mg/dL (8.5-10.1); Chloride 105 mmol/L (98-107); Creatinine, Serum 0.26 mg/dL (0.70-1.30); EST Glomerular Filtration Rate 414 mL/min (>60); Est Glom Filt Rate - Afr Amer 501 mL/min (>60); Estimated Creatinine Clearance 414.31 ml/min; Glucose 129 mg/dL (74-106); Potassium 4.1 mmol/L (3.5-5.1); Sodium Level 137 mmol/L (136-145)
--- NOTE | 2021-02-14 10:50 | PN.HOSP_ITS ---
Documented by User: Dena Rich DELICATESSEN DEPARTMENT MANAGER, DELICATESSEN DEPARTMENT MANAGER-C 02/14/21 11:56 Subjective Subjective Patient seen and examined. Waiting to be taken to the OR for wound debridement/excision. Patient denies fever, chills. Denies current symptoms or complaints. Patient pleasant and amenable to plan. Family at bedside. Objective Data Objective Data Vital Signs: Vital Signs Temp Pulse Resp BP Pulse Ox 98.2 F 83 16 144/75 H 100 02/14/21 09:21 02/14/21 09:21 02/14/21 09:21 02/14/21 09:21 02/14/21 09:21 Oxygen Delivery Method Room Air Weight: 284 lb 9.868 oz Body Mass Index (BMI) 39.6 Intake & Output: Intake and Output for Last 24 Hours 02/12/21 02/13/21 02/14/21 23:59 23:59 23:59 Intake Total 2480 / 2880 520 / 520 Output Total 2100 / 2400 1100 / 1100 Balance 380 / 480 -580 / -580 Medical Nutrition Assessment Dietitian: Nutrition Therapy Diagnosis Start: 02/13/21 16:32 Freq: Status: Active Protocol: Document 02/13/21 16:32 RMA (Rec: 02/13/21 16:33 RMA [id number]) Nutrition Malnutrition Evidence of Malnutrition Exists No Intake Problem Increased Nutrient Needs (specify) Etiology (protein) r/t wounds Signs/Symptoms as evidenced by right lateral ankle 1x2cm, right gluteal fold 4x3.5x4cm, and left lateral lower leg 3.2x1.5x0. 2cm pressure injuries. Status Active Problem Recommendation Dietitian Recommendations/Changes Change diet to cardiac, carbohydrate controlled. Continue 1 pkt Tang PO BID at [facility] to aid in wound healing. D/c glucerna 120[facility]. Will add extra 1-2 oz lean meat/protein at meals. Pt willing to continue Tang BID at home for wound healing. Lab / Micro Data Result Diagrams: 02/14/21 06:00 02/14/21 06:00 Labs: Laboratory Results - last 24 hr 02/12/21 16:55: Hemoglobin A1c 6.3 H 02/13/21 08:30: S.aureus Protein A PCR POSITIVE H, MRSA (PCR) POSITIVE H 02/13/21 11:50: POC Glucose 247 H 02/13/21 17:01: POC Glucose 160 H 02/13/21 23:25: POC Glucose 229 H 02/14/21 06:00: Sodium 137, Potassium 4.1, Chloride 105, Carbon Dioxide 27.0, Anion Gap 5, BUN 10, Creatinine 0.26 L, Estim Creat Clear Calc 414.31, Est GFR (MDRD) Af Amer 501, Est GFR (MDRD) Non-Af 414, BUN/Creatinine Ratio 37.9 H, Glucose 129 H, Calcium 8.5 Micro: Microbiology 02/14/21 09:00 Mucosa - Nose SARS-CoV-2 Antigen (Rapid) - Final 02/13/21 08:30 Wound - Ischium Gram Stain - Final Radiography Diagnostic Testing: Radiology Impression Pelvis CT 02/13/21 16:46 IMPRESSION: 1. Large decubitus ulcer with bony destruction of the posterior right ischial tuberosity consistent with osteomyelitis. 2. Soft tissue densities suggesting ulcer extending to the posterior rectal and coccyx. There is destruction of the distal coccygeal segments. 3. Thick-walled partially collapsed urinary bladder. Electronically Signed: Dwight Aguirre DO at 18:29 EDT Tel [phone], Service support , Physical Exam Const alert, oriented x3 and no apparent distress Orientation / Consciousness: awake, oriented to person, oriented to place and oriented to time HEENT normocephalic and moist oral mucous membranes Eyes PERRL, EOMs intact bilaterally and conjunctivae normal Neck no lymphadenopathy Resp normal respiratory effort and clear to auscultation bilaterally Cardio regular rate, regular rhythm and no murmurs Peripheral Pulses: pulses 2+ throughout GI normal to inspection, nondistended, normoactive bowel sounds, non-tender and non-distended Extremity normal to inspection Skin no rashes or lesions noted Lesions: no lesions Rashes: no rashes Trauma: no lacerations or abrasions Neuro CN's II-XII intact bilaterally, no focal motor deficits, no sensory deficits noted and deep tendon reflexes 2+ bilaterally Psych mental status grossly normal and affect normal Assessment & Plan Assessment/Plan (1) Osteomyelitis of pelvis: (2) Paraplegia: (3) Right ischial pressure sore, stage 4: (4) Pressure sore of left ischium, stage 4: PLAN: 1. Sepsis secondary to bilateral ischial pressure ulcerations, stage IV with associated osteomyelitis- Dr. Granados, plastic surgery and ID consulted. Plan for OR today for excision of bilateral ischial pressure sores and partial ostectomy for osteomyelitis. Plan for wound VAC postoperatively. Wound cultures pending. On IV vancomycin and IV meropenem. Wound RN consult. MRSA and MSSA PCR positive. 2. 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 Continue management of chronic wounds including left posterior heel ulcer, left lateral leg ulcer, perirectal ulcer and sacral ulcer. 3. Type 2 diabetes mellitus- not o regimen. HA1c 6.3%. 4. Hypertension-no longer on regimen. Monitor blood pressure, add regimen if blood pressure remains above goal. 5. Hyperlipidemia-no longer on regimen. Outpatient follow-up. 6. Obesity-encouraged dietary modifications. Nutrition consult. DVT prophylaxis-Lovenox This patient was seen by ONUR Potts under the supervision of Dr. Wayne. Documented by User: Dr. Dejan Wayne, 02/14/21 16:13 Objective Data Lab / Micro Data Result Diagrams: 02/14/21 06:00 02/14/21 06:00 Charges/Coding Addendum Addendum: Patient was seen and examined today independently of Dena Rich, he went to surgery today for debridement of his right ischial stage IV pressure injury. On examination he appeared in good health and spirits. Vital signs as documented. Skin warm and dry and without overt rashes. Patient's pressure injury area over the right ischial area was not examined. Neck without JVD, neck was supple, trachea midline, thyroid was normal. Lungs clear bilaterally, normal air movement was noted. Heart exam notable for regular rhythm, normal sounds and absence of murmurs, rubs or gallops. Abdomen unremarkable and without evidence of organomegaly, masses, or abdominal aortic enlargement. Bowel sounds are present, abdomen is not distended. Extremities-patient has atrophy of both lower extremities, no cyanosis was noted, no clubbing was noted. Neuro: Cranial nerves II through XII are grossly intact, no focal motor deficits were noted, sensation to light touch and pinprick intact, motor exam 5/5 throughout. Psych: Patient is alert and oriented x3, he does not appear anxious or depressed, he does not appear agitated. I have reviewed Dena Rich's progress note including her medical assessment and plan of care and endorse it. ____ Visit Charges Inpatient E&M: 86195 Subs Hosp L2
[2021-02-14 11:04] LABS: Absolute Lymphocyte Count 2.15 X10^3/uL (0.83-4.51); Absolute Neutrophil Count 8.3 X10^3/uL (2.0-7.7); Basophil# 0.06 X10^3/uL; Basophil% 0.5 % (0-1); Eosinophil# 0.25 X10^3/uL; Eosinophils% 2.1 % (0-5); Hematocrit 42.2 % (40-54); Hemoglobin 13.8 g/dL (13.0-16.5); Lymphocyte # 2.15 X10^3/ul (0.83-4.51); Lymphocyte % 18.3 % (19-41); Mean Corp Hgb Conc 32.7 g/dL (32-36); Mean Corpuscular Hgb 28.3 pg (27.0-32.0); Mean Corpuscular Volume 86.7 fL (80-94); Mean Platelet Vol. 11.1 fl (6.2-12.0); Monocyte% 8.5 % (0-10); NRBC Flagged by Analyzer 0 % (0-5); Neutrophil # 8.27 X10^3/uL (2.7-7.7); Neutrophil % 70.3 % (47-70); Platelet Count 300 K/mm3 (150-450); RBC Distribution Width CV 13.6 % (11.6-14.6); RBC Distribution Width SD 43.2 fl (35.1-43.9); Red Blood Count 4.87 M/mm3 (4.6-6.2); White Blood Count 11.8 K/mm3 (4.4-11.0)
[2021-02-14] MEDS: Lidocaine 1% /Epi 1:100 (50ml) 50 ML VIAL (13:00)
--- NOTE | 2021-02-14 13:05 | CASEMGMT ---
Addendum entered by Destini Mckeon 02/14/21 15:03: Received tc back from Mana intake at [facility] who states they are unable to accept the patient. TC to [facility] who state they do not service [place]. TC to [facility] who are unable to accept pt. Spoke with Edna Herring who will check if able to staff pt. Awaiting acceptance. Referral also sent to [facility]. Original Note: TC to [facility] after speaking to . Made aware tentative plan was for DC on Thursday with wound vac and IV antibiotics. Intake questioning if pt will need to be seen on Thursday or Thursday. Made aware that per is unsure of what antibiotic pt will be on so frequency is unknown as well. Mana states she will call back with acceptance.
--- NOTE | 2021-02-14 13:22 | OP.PCM_ITS ---
Problems Associated Problem List Diagnoses (1) Right ischial pressure sore, stage 4: (2) Osteomyelitis of pelvis: (3) Type 2 diabetes mellitus: (4) Paraplegia: (5) Personal history of Methicillin resistant Staphylococcus aureus infection: (6) Urinary incontinence, nocturnal enuresis: (7) Smoker: (8) Pressure sore of left ischium, stage 4: Report of Operation Date of Procedure: 02/14/21 Pre-Operative Diagnosis: (1) Right ischial pressure sore, stage IV: (2) Pressure sore of left ischium, stage IV, appears healed at this time with abnormal macerated scar tissue. (3) Type 2 diabetes mellitus. (4) Paraplegia: (5) Urinary incontinence, nocturnal enuresis: (6) Personal history of Methicillin resistant Staphylococcus aureus infection: (7) Smoker: (8) Osteomyelitis of pelvis: Post-Operative Diagnosis: (1) Right ischial/perineal pressure sore, stage IV: (2) Pressure sore of left ischium, stage IV, appears healed at this time with abnormal macerated scar tissue. (3) Type 2 diabetes mellitus. (4) Paraplegia: (5) Urinary incontinence, nocturnal enuresis: (6) Personal history of Methicillin resistant Staphylococcus aureus infection: (7) Smoker: (8) Osteomyelitis of pelvis: Surgery/Procedure Performed:: Excision right ischial/perineal pressure sore, Stage IV, with partial ostectomy for osteomyelitis. Description of Surgical Findings:: The patient is a 35 year old M who is a paraplegic and has diabetes mellitus and history of MRSA was recently admitted from the Wound Center because of foul smelling drainage from his bilateral ischial pressure sores. He has had intermittent issues with urine leakage at night. He straight caths himself during the day without problem. I have seen him in 01/05 and in 10/06 and both times recommended excision of these pressure sores. He has declined thus far. Upon admission his WBC is 16.7. His HgbA1c from 02/12/21 is 6.3. His last CT and MRI Pelvis were back in 10/06. They were suggestive of osteomyelitis. Will repeat the scan. He denies fever. I was asked to evaluate this patient for surgical options for treatment. Patient was informed of the risks and complications of the procedure including alternatives to surgery. These were discussed with the patient personally. Patient voices understanding and wishes to proceed. Encouraged patient to stop smoking as it may have deleterious effects on wound healing. Size of defect right ischial/perineal area - 12 x 8 x 7 cm. The left ischial pressure sore appears healed at this time with abnormal macerated scar tissue present. I tried to probe the abnormal macerated scar to see if there were any tracking downward toward the bone and I couldn't appreciate any at this time. Surgeon: Solitario Granados nursing staff development coordinator: None Type of Anesthesia: General Specimen's removed: 1. Right ischial/perineal pressure sore, Stage IV, soft tissue, to Pathology and Microbiology. 2. Right ischial/perineal pressure sore, Stage IV, bone, to Pathology and Microbiology. Drains: None. Estimated Blood Loss (mL): 550. Description of Procedure: Patient was taken to OR in supine position and was placed under general anesthesia. He was then placed in the prone position. The ischial pressure sores were prepped and draped in the usual fashion. SCD's were placed for DVT prophylaxis. Perioperative antibiotics were given intravenously. Using xylocaine with epinephrine, the ischial pressures sores were infiltrated. After waiting 5 minutes for the anesthetic to take effect, I started with the right side. Using a scalpel I excised the right ischial pressure sore down into the subcutaneous tissue through the muscle until the bone was seen. There was a lot of scar tissue present during the excision with isolated pockets of fluid. When I got to the bone, there was a pocket of pus overlying the bone. Using an osteotome and a mallet, a partial ostectomy was performed. A rasp was used to smooth out the bony edges. The pressure sore extended medially into the perineal area. After all the abnormal bursal scar tissue was excised, the wound was packed. Half the soft tissue and half the bone was sent to Pathology for analysis to rule out carcinoma and to evaluate for osteomyelitis. Half the soft tissue and half the bone was sent to Microbiology for culture. A positive culture will necessitate antibiotic therapy. The wound was irrigated with saline. Hemostasis was obtained with electrocautery. The size of the defect after excision of the pressure sore with partial ostectomy was 12 x 8 x 7 cm or 96 cm2. The excision was bloody as the estimated blood loss was about 550 ml. Will check a Hgb in the morning. I then addressed the left ischial pressure sore. There was abnormal macerated scar tissue present. I took a probe and could not find any tracking within the abnormal macerated scar tissue to suggest an urgent problem at this time. Since the excision of the right ischial/perineal pressure sore had 550 ml of blood loss, I did not want to start a separate area that would only increase the blood loss and put this patient at risk for a complication postoperatively unless it was urgently necessary. I will just keep an eye on the left side. Once an opening develops or drainage occurs, then can proceed to the operating room at that time for excision of the left ischial pressure sore. I then placed bone wax on the exposed bone after the partial ostectomy to help minimize bleeding issues postoperatively. The wound was dressed with Mepitel nonadherent dressing followed by Kerlix gauze and Betadine followed by dry Kerlix gauze and ABD pads compression dressing. Patient tolerated the procedure well and was sent to PACU in satisfactory condition. Patient will be sent upstairs for continued postop care. The wound VAC will be applied tomorrow. Grafts/Implants Used: None. Complications None. Admit VTE Documentation VTE Present on Admission: No VTE Mechan Device Prophylaxis: SCD's VTE Pharm Prophylaxis ordered?: Yes Addendum Addendum: Surgery Charges CPT - 69173 ICD-10 - L89.314, M86.9, E11.9, G82.20, Z86.14, N39.44, F17.200, L89.324
--- NOTE | 2021-02-14 14:43 | NURSING ---
This RN reviewed SN charting
[2021-02-14 17:05] LABS: Bedside Glucose 126 mg/dL (70-110)
--- NOTE | 2021-02-14 17:22 | PCM.RX.CS ---
Consult Pharmacy has been consulted to manage selected antiobiotic: Vancomycin Type of Consult: Follow-up Suspected Infection: Sepsis, Skin/Soft tissue Prior Doses of Antibiotics Received/Current Regimen: Currently on 1500mg iv q8h. Labs: Sodium 137 mmol/L (136-145) 02/14/21 06:00 Potassium 4.1 mmol/L (3.5-5.1) 02/14/21 06:00 Chloride 105 mmol/L (98-107) 02/14/21 06:00 Carbon Dioxide 27.0 mmol/L (21.0-32.0) 02/14/21 06:00 Anion Gap 5 (5-15) 02/14/21 06:00 BUN 10 mg/dL (7-18) 02/14/21 06:00 Creatinine 0.26 mg/dL (0.70-1.30) L 02/14/21 06:00 Est GFR (MDRD) Af Amer 501 mL/min (>60) 02/14/21 06:00 Est GFR (MDRD) Non-Af 414 mL/min (>60) 02/14/21 06:00 BUN/Creatinine Ratio 37.9 RATIO (10-20) H 02/14/21 06:00 Glucose 129 mg/dL (74-106) H 02/14/21 06:00 Vancomycin Trough 17.0 ug/mL (5.0-15.0) H 02/14/21 11:15 Microbiology: Microbiology 02/13/21 08:30 Wound - Ischium Gram Stain - Final 02/13/21 08:30 Wound - Ischium Wound Culture - Preliminary Gram negative christiana 02/14/21 09:00 Mucosa - Nose SARS-CoV-2 Antigen (Rapid) - Final Weight used for dosin kg Estimated Creatinine Clearance: >100ml/min Goal Trough: 15-20 mcg/mL Pharmacy Plan for Drug Dosing: Today's trough level reported as 17.0 with goal range of 15-20. Will continue same dose and freq. Another trough level ordered for 02.15.21. Pharmacy Service will continue to monitor and adjust dosing as required.
[2021-02-14 23:15] LABS: Bedside Glucose 126 mg/dL (70-110)
[2021-02-15] VITALS (7 sets, daily range): BP systolic 121–148; BP diastolic 65–82; PULSE 81–101; RESP 16–18; TEMP 36.2–36.8; O2SAT 96–99
[2021-02-15 06:38] LABS: Absolute Lymphocyte Count 2.06 X10^3/uL (0.83-4.51); Absolute Neutrophil Count 9.7 X10^3/uL (2.0-7.7); Basophil# 0.04 X10^3/uL; Basophil% 0.3 % (0-1); Eosinophil# 0.22 X10^3/uL; Eosinophils% 1.7 % (0-5); Hematocrit 37.6 % (40-54); Lymphocyte # 2.06 X10^3/ul (0.83-4.51); Lymphocyte % 15.8 % (19-41); Mean Corp Hgb Conc 31.9 g/dL (32-36); Mean Corpuscular Hgb 27.7 pg (27.0-32.0); Mean Corpuscular Volume 86.8 fL (80-94); Monocyte# 0.89 X10^3/uL; Monocyte% 6.8 % (0-10); NRBC Flagged by Analyzer 0 % (0-5); Neutrophil # 9.72 X10^3/uL (2.7-7.7); Neutrophil % 74.9 % (47-70); Platelet Count 278 K/mm3 (150-450); RBC Distribution Width CV 13.5 % (11.6-14.6); RBC Distribution Width SD 43.5 fl (35.1-43.9); Red Blood Count 4.33 M/mm3 (4.6-6.2)
[2021-02-15 06:46] LABS: Bedside Glucose 127 mg/dL (70-110)
[2021-02-15 07:20] LABS: Anion Gap 4 (5-15); BUN 10 mg/dL (7-18); BUN/Creat Ratio 41.2 RATIO (10-20); Calcium,Total 8.1 mg/dL (8.5-10.1); Chloride 104 mmol/L (98-107); Creatinine, Serum 0.24 mg/dL (0.70-1.30); EST Glomerular Filtration Rate 455 mL/min (>60); Est Glom Filt Rate - Afr Amer 551 mL/min (>60); Glucose 123 mg/dL (74-106); Potassium 4.2 mmol/L (3.5-5.1); Sodium Level 137 mmol/L (136-145)
[2021-02-15] MEDS: Psyllium 1 PACKET PO (08:13)
[2021-02-15] MEDS: Enoxaparin 40 MG/0.4 ML Syringe SC (08:17)
--- NOTE | 2021-02-15 09:24 | CASEMGMT ---
Addendum entered by Destini Mckeon 02/15/21 15:44: TC to [facility] and [facility], neither service [place]. Addendum entered by Destini Mckeon 02/15/21 15:07: TC and referral faxed to [facility] and [facility], both unable to accept d/t staffing. TC to [facility] and awaiting answer for acceptance. Original Note: AURORA BUTLER received tc from Edna Herring at [facility], unable to accept pt. [facility] unable to accept pt as they do not service [place]. TC to [facility] who do not have staffing. [facility] does not take [place]. also unable to accept pt. AURORA BUTLER to continue to work on [facility].
--- NOTE | 2021-02-15 09:41 | NURSING ---
wound photo: right ischium
--- NOTE | 2021-02-15 10:26 | PN.HOSP_ITS ---
Documented by User: Dena Rich NP, WORK ADJUSTMENT INSTRUCTOR-C 02/15/21 10:33 Subjective Subjective Patient seen and examined. Wound nurse at bedside placing wound VAC. Patient denies fever, chills, nausea, vomiting. Denies current symptoms or complaints. Objective Data Objective Data Vital Signs: Vital Signs Temp Pulse Resp BP Pulse Ox 98.1 F 81 16 121/81 H 98 02/15/21 08:25 02/15/21 08:25 02/15/21 08:25 02/15/21 08:25 02/15/21 08:25 Oxygen Delivery Method Room Air Weight: 284 lb 9.868 oz Body Mass Index (BMI) 39.6 Intake & Output: Intake and Output for Last 24 Hours 02/13/21 02/14/21 02/15/21 23:59 23:59 23:59 Intake Total 2480 / 2880 1820 / 2220 1370 / 1370 Output Total 2100 / 2400 1800 / 2100 1100 / 1100 Balance 380 / 480 20 / 120 270 / 270 Medical Nutrition Assessment Dietitian: Nutrition Therapy Diagnosis Start: 02/13/21 1 6:32 Freq: Status: Active Protocol: Document 02/13/21 16:32 RMA (Rec: 02/13/21 16:33 RMA [id number]) Nutrition Malnutrition Evidence of Malnutrition Exists No Intake Problem Increased Nutrient Needs (specify) Etiology (protein) r/t wounds Signs/Symptoms as evidenced by right lateral ankle 1x2cm, right gluteal fold 4x3.5x4cm, and left lateral lower leg 3.2x1.5x0. 2cm pressure injuries. Status Active Problem Recommendation Dietitian Recommendations/Changes Change diet to cardiac, carbohydrate controlled. Continue 1 pkt Tang [facility] to [facility] in [facility] healing. D/c glucerna 120mL [facility]. Will add extra 1-2 oz lean meat/protein at meals. Pt willing to continue Tang BID at home for wound healing. Lab / Micro Data Result Diagrams: 02/15/21 06:10 02/15/21 06:10 Labs: Laboratory Results - last 24 hr 02/13/21 08:30: S.aureus Protein A PCR POSITIVE H, MRSA (PCR) POSITIVE H 02/14/21 06:00: WBC 11.8 H, RBC 4.87, Hgb 13.8, Hct 42.2, MCV 86.7, MCH 28.3, MCHC 32.7, RDW Std Deviation 43.2, RDW Coeff of Darrell 13.6, Plt Count 300, MPV 11.1, Immature Gran % (Auto) 0.300, Neut % (Auto) 70.3 H, Lymph % (Auto) 18.3 L, [place] % (Auto) 8.5, Eos % (Auto) 2.1, Baso % (Auto) 0.5, Absolute Neuts (auto) 8.3 H, Absolute Lymphs (auto) 2.15, Nucleated RBC % 0 02/14/21 11:15: Vancomycin Trough 17.0 H 02/14/21 16:51: POC Glucose 126 H 02/14/21 22:26: POC Glucose 126 H 02/15/21 06:10: WBC 13.0 H, RBC 4.33 L, Hgb 12.0 L, Hct 37.6 L, MCV 86.8, MCH 27.7, MCHC 31.9 L, RDW Std Deviation 43.5, RDW Coeff of Darrell 13.5, Plt Count 278, MPV 11.0, Immature Gran % (Auto) 0.500, Neut % (Auto) 74.9 H, Lymph % (Auto) 15.8 L, [place] % (Auto) 6.8, Eos % (Auto) 1.7, Baso % (Auto) 0.3, Absolute Neuts (auto) 9.7 H, Absolute Lymphs (auto) 2.06, Nucleated RBC % 0 02/15/21 06:10: Sodium 137, Potassium 4.2, Chloride 104, Carbon Dioxide 29.0, Anion Gap 4 L, BUN 10, Creatinine 0.24 L, Estim Creat Clear Calc 448.84, Est GFR (MDRD) Af Amer 551, Est GFR (MDRD) Non-Af 455, BUN/Creatinine Ratio 41.2 H, Glucose 123 H, Calcium 8.1 L 02/15/21 06:41: POC Glucose 127 H Micro: Microbiology 02/13/21 08:30 Wound - Ischium Gram Stain - Final 02/13/21 08:30 Wound - Ischium Wound Culture - Preliminary Proteus mirabilis Beta hemolytic organism Mixed Gram Positive Organisms 02/14/21 09:00 Mucosa - Nose SARS-CoV-2 Antigen (Rapid) - Final Physical Exam Const alert, oriented x3 and no apparent distress Orientation / Consciousness: awake, oriented to person, oriented to place and oriented to time HEENT normocephalic and moist oral mucous membranes Eyes PERRL, EOMs intact bilaterally and conjunctivae normal Neck no lymphadenopathy Resp normal respiratory effort and clear to auscultation bilaterally Cardio regular rate, regular rhythm and no murmurs Peripheral Pulses: pulses 2+ throughout GI normal to inspection, nondistended, normoactive bowel sounds, non-tender and non-distended Extremity normal to inspection Extremity Narrative: Paraplegia, chronic Skin no rashes or lesions noted Skin Narrative: left posterior heel ulcer, left lateral leg ulcer, perirectal ulcer/sacral ulcer, bilateral ischial ulcers. Postoperative wound VAC in place. Lesions: no lesions Rashes: no rashes Trauma: no lacerations or abrasions Neuro CN's II-XII intact bilaterally, no focal motor deficits, no sensory deficits noted and deep tendon reflexes 2+ bilaterally Psych mental status grossly normal Mood & Affect: flat affect Assessment & Plan Assessment/Plan (1) Right ischial pressure sore, stage 4: (2) Pressure sore of left ischium, stage 4: (3) Osteomyelitis of pelvis: PLAN: 1. Sepsis secondary to bilateral ischial pressure ulcerations, stage IV with associated osteomyelitis- Dr. Granados, plastic surgery and ID consulted. Patient underwent excision of right ischial pressure sore with partial ostectomy for osteomyelitis 02/14/2021. Wound VAC placed. Postoperative wound cultures pending. On IV vancomycin and IV meropenem. Wound RN consult. MRSA and MSSA PCR positive. CM working on setup. 2. 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 Continue management of chronic wounds including left posterior heel ulcer, left lateral leg ulcer, perirectal ulcer and sacral ulcer. 3. Type 2 diabetes mellitus- not o regimen. HA1c 6.3%. 4. Hypertension-no longer on regimen. Blood pressure stable at this time. 5. Hyperlipidemia-no longer on regimen. Outpatient follow-up. 6. Obesity-encouraged dietary modifications. Nutrition consult. DVT prophylaxis-Lovenox This patient was seen by ONUR Potts under the supervision of Dr. Wayne. Documented by User: Dr. Dejan Wayne DO 02/15/21 18:12 Objective Data Lab / Micro Data Result Diagrams: 02/15/21 06:10 02/15/21 06:10 Charges/Coding Addendum Addendum: Patient was seen and examined independently of Dena Rich, patient has no specific complaints today, he does not complain of any shortness of breath, fevers, or chills. On examination he appeared in good health and spirits. Vital signs as documented. Skin warm and dry and without overt rashes. Patient's pressure injury area over the right ischial area was not examined. Neck without JVD, neck was supple, trachea midline, thyroid was normal. Lungs clear bilaterally, normal air movement was noted. Heart exam notable for regular rhythm, normal sounds and absence of murmurs, rubs or gallops. Abdomen unremarkable and without evidence of organomegaly, masses, or abdominal aortic enlargement. Bowel sounds are present, abdomen is not distended. Extremities-patient has atrophy of both lower extremities, no cyanosis was noted, no clubbing was noted. Neuro: Cranial nerves II through XII are grossly intact, no focal motor deficits were noted, sensation to light touch and pinprick intact, motor exam 5/5 throughout. Psych: Patient is alert and oriented x3, he does not appear anxious or depressed, he does not appear agitated. I have reviewed Dena Rich's progress note including her medical assessment and plan of care and endorse it. Visit Charges Inpatient E&M: 70395 Subs Hosp L2
[2021-02-15 11:05] LABS: Bedside Glucose 177 mg/dL (70-110)
--- NOTE | 2021-02-15 14:08 | PCM.PN.SRG ---
Subjective Subjective Postop #1 Patient is resting comfortably. VAC applied. Objective Data Objective Data Vital Signs: Vital Signs Temp Pulse Resp BP Pulse Ox 97.9 F 89 16 132/75 H 98 02/15/21 11:55 02/15/21 11:55 02/15/21 11:55 02/15/21 11:55 02/15/21 11:55 Oxygen Delivery Method Room Air Weight: 284 lb 9.868 oz Body Mass Index (BMI) 39.6 Intake & Output: Intake and Output for Last 24 Hours 02/13/21 02/14/21 02/15/21 23:59 23:59 23:59 Intake Total 2480 / 2880 1820 / 2220 2300 / 2300 Output Total 2100 / 2400 1800 / 2100 1100 / 1100 Balance 380 / 480 20 / 120 1200 / 1200 Medical Nutrition Assessment Dietitian: Nutrition Therapy Diagnosis Start: 02/13/21 16:32 Freq: Status: Active Protocol: Document 02/13/21 16:32 RMA (Rec: 02/13/21 16:33 RMA [id number]) Nutrition Malnutrition Evidence of Malnutrition Exists No Intake Problem Increased Nutrient Needs (specify) Etiology (protein) r/t wounds Signs/Symptoms as evidenced by right lateral ankle 1x2cm, right gluteal fold 4x3.5x4cm, and left lateral lower leg 3.2x1.5x0. 2cm pressure injuries. Status Active Problem Recommendation Dietitian Recommendations/Changes Change diet to cardiac, carbohydrate controlled. Continue 1 pkt Tang PO BID at [facility] to aid in wound healing. D/c glucerna 120mL PO 4x/day at [facility]. Will add extra 1-2 oz lean meat/protein at meals. Pt willing to continue Tang BID at home for wound healing. Lab / Micro Data Attestation: I reviewed the patient's lab results. Result Diagrams: 02/15/21 06:10 02/15/21 06:10 Labs: Laboratory Results - last 24 hr 02/14/21 16:51: POC Glucose 126 H 02/14/21 22:26: POC Glucose 126 H 02/15/21 06:10: WBC 13.0 H, RBC 4.33 L, Hgb 12.0 L, Hct 37.6 L, MCV 86.8, MCH 27.7, MCHC 31.9 L, RDW Std Deviation 43.5, RDW Coeff of Darrell 13.5, Plt Count 278, MPV 11.0, Immature Gran % (Auto) 0.500, Neut % (Auto) 74.9 H, Lymph % (Auto) 15.8 L, [place] % (Auto) 6.8, Eos % (Auto) 1.7, Baso % (Auto) 0.3, Absolute Neuts (auto) 9.7 H, Absolute Lymphs (auto) 2.06, Nucleated RBC % 0 02/15/21 06:10: Sodium 137, Potassium 4.2, Chloride 104, Carbon Dioxide 29.0, Anion Gap 4 L, BUN 10, Creatinine 0.24 L, Estim Creat Clear Calc 448.84, Est GFR (MDRD) Af Amer 551, Est GFR (MDRD) Non-Af 455, BUN/Creatinine Ratio 41.2 H, Glucose 123 H, Calcium 8.1 L 02/15/21 06:41: POC Glucose 127 H 02/15/21 10:57: POC Glucose 177 H Micro: Microbiology 02/14/21 12:30 Tissue - Ischial Pressure Sore Gram Stain - Final 02/14/21 12:30 Tissue - Ischial Pressure Sore Wound Culture - Preliminary GNR lactose geochemistry teacher Mixed Gram Positive Organisms 02/14/21 12:30 Bone - Ischial Bone Gram Stain - Final 02/13/21 08:30 Wound - Ischium Gram Stain - Final 02/13/21 08:30 Wound - Ischium Wound Culture - Preliminary Proteus mirabilis Beta hemolytic organism Gram positive christiana 02/14/21 09:00 Mucosa - Nose SARS-CoV-2 Antigen (Rapid) - Final Physical Exam Narrative General - Alert and Oriented HEENT - PERRL. EOMI. Neck - Supple and nontender. Abdomen - Soft and nondistended. Rectal - right ischial pressure sore stable. No active bleeding seen. VAC applied. Neuro - CN II-XII grossly intact. Psych - Normal mood and affect. Assessment & Plan Assessment/Plan (1) Right ischial pressure sore, stage 4: (2) Type 2 diabetes mellitus: QUALIFIERS: Diabetes mellitus intermediate teacher insulin use: without intermediate teacher use Diabetes mellitus complication status: with skin complications (3) Osteomyelitis of pelvis: (4) Paraplegia: (5) Personal history of Methicillin resistant Staphylococcus aureus infection: (6) Smoker: (7) Urinary incontinence, nocturnal enuresis: (8) Pressure sore of left ischium, stage 4: PLAN: Right ischial/perineal pressure sore is stable. No active bleeding. VAC applied. Operative culture shows Gram negative rods lactose geochemistry teacher thus far. On Vancomycin and Meropenem. Preop wound culture showed Proteus mirabilis and Acinetobacter baumannii. HgbA1c from 02/12/21 was 6.3. Anticipate increased metabolic demands from the pressure sore infection. Will check a Prealbumin and encourage nutritional supplementation with protein to help the healing process. After discharge, [facility].
[2021-02-15 16:16] LABS: Bedside Glucose 120 mg/dL (70-110)
[2021-02-15 16:46] LABS: Vancomycin, Trough Level 15.6 ug/mL (5.0-15.0)
--- NOTE | 2021-02-15 17:05 | PCM.PN.ID ---
Physical Exam Narrative Feeling ok, no fever, no n/v/d. Const alert General Appearance: cooperative Resp normal air movement and clear to auscultation bilaterally Cardio regular rate and regular rhythm GI normal to inspection, nondistended, normoactive bowel sounds Skin Skin Narrative: reviewed photo ID ID: Route of nutrition/ use of supplements: [] Nutritional Intake: [] IV Site: [] Lee Catheter: [] Assessment & Plan Assessment/Plan (1) Paraplegia: (2) Sepsis: PLAN: sepsis due to pelvic osteo - Dr. Granados following, wound cxs so far with GNR, proteus, AcB, strep-like, and GPR. On empiric vanc/tori. Taken to OR 02/[address] Granados. Bone cx now with gram positives. Will narrow abx to vanc/cefepime/flagyl. Assuming no changes in terms of cx results, plan will be for 6 weeks iv cefepime and po flagyl, stop date 03/28/21, weekly bmp, cbc, and esr. ID followup in 2 weeks. Will follow (3) Osteomyelitis of pelvis:
--- NOTE | 2021-02-15 17:13 | PCM.RX.CS ---
Consult Pharmacy has been consulted to manage selected antiobiotic: Vancomycin Type of Consult: Follow-up Suspected Infection: Sepsis, Skin/Soft tissue Prior Doses of Antibiotics Received/Current Regimen: Currently on 1500mg iv q8h. Labs: Sodium 137 mmol/L (136-145) 02/15/21 06:10 Potassium 4.2 mmol/L (3.5-5.1) 02/15/21 06:10 Chloride 104 mmol/L (98-107) 02/15/21 06:10 Carbon Dioxide 29.0 mmol/L (21.0-32.0) 02/15/21 06:10 Anion Gap 4 (5-15) L 02/15/21 06:10 BUN 10 mg/dL (7-18) 02/15/21 06:10 Creatinine 0.24 mg/dL (0.70-1.30) L 02/15/21 06:10 Est GFR (MDRD) Af Amer 551 mL/min (>60) 02/15/21 06:10 Est GFR (MDRD) Non-Af 455 mL/min (>60) 02/15/21 06:10 BUN/Creatinine Ratio 41.2 RATIO (10-20) H 02/15/21 06:10 Glucose 123 mg/dL (74-106) H 02/15/21 06:10 Vancomycin Trough 15.6 ug/mL (5.0-15.0) H 02/15/21 15:25 Microbiology: Microbiology 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 02/14/21 09:00 Mucosa - Nose SARS-CoV-2 Antigen (Rapid) - Final Weight used for dosin kg Estimated Creatinine Clearance: >100ml/min Goal Trough: 15-20 mcg/mL Pharmacy Plan for Drug Dosing: Trough level today was 15.6 (goal range 15-20 mcg/ml). Renal about same as yesterday. Will continue same dose/frequency and get another level on 02.16.21 to watch and see if level trending down (level 17.0 on 02.14.21). Pharmacy Service will continue to monitor and adjust dosing as required.
[2021-02-15] MEDS: Acetaminophen 325 MG Tablet 650 MG PO (20:53)
[2021-02-15] MEDS: metroNIDAZOLE 500 MG Tablet PO (20:54)
[2021-02-15 21:15] LABS: Bedside Glucose 129 mg/dL (70-110)
[2021-02-16 04:13] VITALS: BP 129/80; PULSE 95; RESP 20; TEMP 36.1; O2SAT 98
[2021-02-16] MEDS: metroNIDAZOLE 500 MG Tablet PO ×3 (06:42→21:07)
[2021-02-16] MEDS: Psyllium 1 PACKET PO (09:09)
[2021-02-16] MEDS: Enoxaparin 40 MG/0.4 ML Syringe SC (09:09)
[2021-02-16 09:20] VITALS: BP 138/80; PULSE 91; RESP 16; TEMP 36.6; O2SAT 97
[2021-02-16 09:21] LABS: Absolute Lymphocyte Count 1.44 X10^3/uL (0.83-4.51); Absolute Neutrophil Count 11.3 X10^3/uL (2.0-7.7); Basophil# 0.05 X10^3/uL; Basophil% 0.4 % (0-1); Eosinophil# 0.28 X10^3/uL; Hematocrit 38.2 % (40-54); Hemoglobin 12.1 g/dL (13.0-16.5); Lymphocyte # 1.44 X10^3/ul (0.83-4.51); Lymphocyte % 10.3 % (19-41); Mean Corp Hgb Conc 31.7 g/dL (32-36); Mean Corpuscular Hgb 27.7 pg (27.0-32.0); Mean Corpuscular Volume 87.4 fL (80-94); Mean Platelet Vol. 10.9 fl (6.2-12.0); Monocyte# 0.88 X10^3/uL; Monocyte% 6.3 % (0-10); NRBC Flagged by Analyzer 0 % (0-5); Neutrophil # 11.29 X10^3/uL (2.7-7.7); Neutrophil % 80.5 % (47-70); Platelet Count 289 K/mm3 (150-450); RBC Distribution Width CV 13.5 % (11.6-14.6); RBC Distribution Width SD 43.9 fl (35.1-43.9); Red Blood Count 4.37 M/mm3 (4.6-6.2)
[2021-02-16 09:49] LABS: Anion Gap 5 (5-15); BUN 10 mg/dL (7-18); BUN/Creat Ratio 41.8 RATIO (10-20); Calcium,Total 8.6 mg/dL (8.5-10.1); Chloride 104 mmol/L (98-107); Creatinine, Serum 0.24 mg/dL (0.70-1.30); EST Glomerular Filtration Rate 464 mL/min (>60); Est Glom Filt Rate - Afr Amer 562 mL/min (>60); Glucose 125 mg/dL (74-106); Prealbumin 12.3 mg/dL (20.0-40.0); Sodium Level 137 mmol/L (136-145)
[2021-02-16] MEDS: BENZOCAINE/MENTHOL 1 LOZENGE 2 LOZENGE MUCOUS MEM (11:55)
--- NOTE | 2021-02-16 12:14 | PN.HOSP_ITS ---
Documented by User: Dena Rich NP, E MAIL SYSTEM ADMINISTRATOR-C 02/16/21 12:22 Subjective Subjective Patient seen and examined. No acute events overnight. Patient denies current symptoms or complaints. Awaiting postoperative cultures and home health set up. Objective Data Objective Data Vital Signs: Vital Signs Temp Pulse Resp BP Pulse Ox 97.9 F 91 16 138/80 H 97 02/16/21 09:20 02/16/21 09:20 02/16/21 09:20 02/16/21 09:20 02/16/21 09:20 Oxygen Delivery Method Room Air Weight: 284 lb 9.868 oz Body Mass Index (BMI) 39.6 Intake & Output: Intake and Output for Last 24 Hours 02/14/21 02/15/21 02/16/21 23:59 23:59 23:59 Intake Total 1820 / 2220 3920 / 3920 1660 / 1660 Output Total 1800 / 2100 4100 / 4100 1700 / 1700 Balance 20 / 120 -180 / -180 -40 / -40 Medical Nutrition Assessment Dietitian: Nutrition Therapy Diagnosis Start: 02/13/21 16:32 Freq: Status: Active Protocol: Document 02/13/21 16:32 RMA (Rec: 02/13/21 16:33 RMA [id number]) Nutrition Malnutrition Evidence of Malnutrition Exists No Intake Problem Increased Nutrient Needs (specify) Etiology (protein) r/t wounds Signs/Symptoms as evidenced by right lateral ankle 1x2cm, right gluteal fold 4x3.5x4cm, and left lateral lower leg 3.2x1.5x0. 2cm pressure injuries. Status Active Problem Recommendation Dietitian Recommendations/Changes Change diet to cardiac, carbohydrate controlled. Continue 1 pkt Tang PO BID at [facility] to aid in wound healing. D/c glucerna 120mL PO 4x/day at [facility]. Will add extra 1-2 oz lean meat/protein at meals. Pt willing to continue Tang BID at home for wound healing. Lab / Micro Data Result Diagrams: 02/16/21 08:52 02/16/21 08:52 Labs: Laboratory Results - last 24 hr 02/13/21 08:30: S.aureus Protein A PCR POSITIVE H, MRSA (PCR) POSITIVE H 02/15/21 15:25: Vancomycin Trough 15.6 H 02/15/21 16:05: POC Glucose 120 H 02/15/21 21:09: POC Glucose 129 H 02/16/21 08:52: WBC 14.0 H, RBC 4.37 L, Hgb 12.1 L, Hct 38.2 L, MCV 87.4, MCH 27.7, MCHC 31.7 L, RDW Std Deviation 43.9, RDW Coeff of Darrell 13.5, Plt Count 289, MPV 10.9, Immature Gran % (Auto) 0.500, Neut % (Auto) 80.5 H, Lymph % (Auto) 10.3 L, [place] % (Auto) 6.3, Eos % (Auto) 2.0, Baso % (Auto) 0.4, Absolute Neuts (auto) 11.3 H, Absolute Lymphs (auto) 1.44, Nucleated RBC % 0 02/16/21 08:52: Sodium 137, Potassium 4.0, Chloride 104, Carbon Dioxide 28.0, Anion Gap 5, BUN 10, Creatinine 0.24 L, Estim Creat Clear Calc 448.84, Est GFR (MDRD) Af Amer 562, Est GFR (MDRD) Non-Af 464, BUN/Creatinine Ratio 41.8 H, Glucose 125 H, Calcium 8.6, Prealbumin 12.3 L Micro: Microbiology 02/13/21 08:30 Wound - Ischium Gram Stain - Final 02/13/21 08:30 Wound - Ischium Wound Culture - Preliminary Proteus mirabilis Staphylococcus species Corynebacterium striatum 02/13/21 08:30 Wound - Ischium Anaerobic Culture - Preliminary Checking for anaerobes, further studies to follow. 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 Mixed Gram Positive Organisms 02/14/21 12:30 Tissue - Ischial Pressure Sore Anaerobic Culture - Preliminary 02/14/21 09:00 Mucosa - Nose SARS-CoV-2 Antigen (Rapid) - Final Physical Exam Const alert, oriented x3 and no apparent distress Orientation / Consciousness: awake, oriented to person, oriented to place and oriented to time HEENT normocephalic and moist oral mucous membranes Eyes PERRL, EOMs intact bilaterally and conjunctivae normal Neck no lymphadenopathy Resp normal respiratory effort and clear to auscultation bilaterally Cardio regular rate, regular rhythm and no murmurs Peripheral Pulses: pulses 2+ throughout GI normal to inspection, nondistended, normoactive bowel sounds, non-tender and n on-distended Extremity normal to inspection Extremity Narrative: Paraplegia, chronic Skin no rashes or lesions noted Skin Narrative: left posterior heel ulcer, left lateral leg ulcer, perirectal ulcer/sacral ulcer, bilateral ischial ulcers. Postoperative wound VAC in place. Lesions: no lesions Rashes: no rashes Trauma: no lacerations or abrasions Neuro CN's II-XII intact bilaterally, no focal motor deficits, no sensory deficits noted and deep tendon reflexes 2+ bilaterally Psych mental status grossly normal and affect normal Assessment & Plan Assessment/Plan (1) Osteomyelitis of pelvis: (2) Pressure sore of left ischium, stage 4: (3) Right ischial pressure sore, stage 4: PLAN: 1. Infected chronic bilateral ischial pressure ulcerations, stage IV with associated osteomyelitis- Sepsis ruled out. Dr. Granados, plastic surgery and ID consulted. Patient underwent excision of right ischial pressure sore with partial ostectomy for osteomyelitis 02/14/2021. Wound VAC placed. Postoperative wound cultures pending. On IV vancomycin, IV cefepime and Flagyl. Wound RN consult. MRSA and MSSA PCR positive. CM working on setup. Plan for IV antibiotics for 6 weeks with stop date 03/28/2021. Follow-up with ID in 2 week s. 2. 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 Continue management of chronic wounds including left posterior heel ulcer, left lateral leg ulcer, perirectal ulcer and sacral ulcer. 3. Type 2 diabetes mellitus- not o regimen. HA1c 6.3%. 4. Hypertension-no longer on regimen. Blood pressure stable at this time. 5. Hyperlipidemia-no longer on regimen. Outpatient follow-up. 6. Obesity-encouraged dietary modifications. Nutrition consult. DVT prophylaxis-Lovenox This patient was seen by ONUR Potts under the supervision of Dr. Wayne. Documented by User: Dr. Dejan Wayne, 02/16/21 14:42 Objective Data Lab / Micro Data Result Diagrams: 02/16/21 08:52 02/16/21 08:52 Charges/Coding Addendum Addendum: Patient was seen and examined independently of Dena Rich today, he is anxious about being discharged-patient wants to go home, I explained to him that he would have to wait until he is reevaluated by infectious diseases on Thursday. He understood this. was in the room at the time of my exam. Patient has no complaints of any fever or chills. On examination he appeared in good health and spirits. Vital signs as documented. Skin warm and dry and without overt rashes. Patient's pressure injury area over the right ischial area was not examined-wound VAC in place. Neck without JVD, neck was supple, trachea midline, thyroid was normal. Lungs clear bilaterally, normal air movement was noted. Heart exam notable for regular rhythm, normal sounds and absence of murmurs, rubs or gallops. Abdomen unremarkable and without evidence of organomegaly, masses, or abdominal aortic enlargement. Bowel sounds are present, abdomen is not distended. Extremities- patient has atrophy of both lower extremities, no cyanosis was noted, no clubbing was noted. Neuro: Cranial nerves II through XII are grossly intact, no focal motor deficits were noted, sensation to light touch and pinprick intact, motor exam 5/5 throughout. Psych: Patient is alert and oriented x3, he does not appear anxious or depressed, he does not appear agitated. I have reviewed Dena Rich's progress note including her medical assessment and plan of care and endorse it Visit Charges Inpatient E&M: 95345 Subs Hosp L2
[2021-02-16 15:11] VITALS: BP 149/73; PULSE 100; RESP 18; TEMP 36.7; O2SAT 97
[2021-02-16 16:34] LABS: Vancomycin, Trough Level 14.9 ug/mL (5.0-15.0)
--- NOTE | 2021-02-16 16:48 | PCM.RX.CS ---
Consult Pharmacy has been consulted to manage selected antiobiotic: Vancomycin Type of Consult: Follow-up Suspected Infection: Skin/Soft tissue, Osteomyelitis Prior Doses of Antibiotics Received/Current Regimen: current regimen is 1500mg IV q8h Labs: Sodium 137 mmol/L (136-145) 02/16/21 08:52 Potassium 4.0 mmol/L (3.5-5.1) 02/16/21 08:52 Chloride 104 mmol/L (98-107) 02/16/21 08:52 Carbon Dioxide 28.0 mmol/L (21.0-32.0) 02/16/21 08:52 Anion Gap 5 (5-15) 02/16/21 08:52 BUN 10 mg/dL (7-18) 02/16/21 08:52 Creatinine 0.24 mg/dL (0.70-1.30) L 02/16/21 08:52 Est GFR (MDRD) Af Amer 562 mL/min (>60) 02/16/21 08:52 Est GFR (MDRD) Non-Af 464 mL/min (>60) 02/16/21 08:52 BUN/Creatinine Ratio 41.8 RATIO (10-20) H 02/16/21 08:52 Glucose 125 mg/dL (74-106) H 02/16/21 08:52 Vancomycin Trough 14.9 ug/mL (5.0-15.0) 02/16/21 15:30 Microbiology: Microbiology 02/14/21 12:30 Bone - Ischial Bone Gram Stain - Final 02/14/21 12:30 Bone - Ischial Bone Wound Culture - Preliminary Gram Positive Cocci 02/14/21 12:30 Tissue - Ischial Pressure Sore Gram Stain - Final 02/14/21 12:30 Tissue - Ischial Pressure Sore Wound 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 02/14/21 09:00 Mucosa - Nose SARS-CoV-2 Antigen (Rapid) - Final Weight used for dosin.1 kg Estimated Creatinine Clearance: >100ml/min Goal Trough: 15-20 mcg/mL Pharmacy Plan for Drug Dosing: The vanc trough drawn this afternoon was 14.9 (drawn about 7.25 hrs after the previous dose). The trough has now dropped below goal range - previous 2 troughs were 17.0 and 15.6. Since it has been trending down, will increase next dose to 1750mg IV q8h, starting tonight since this afternoon's dose has already been hung. Will check a trough again before the 4th new dose tomorrow night. Pharmacy Service will continue to monitor and adjust dosing as required. Follow-Up Labs: Trough Vancomycin Labs to be done on [date and time ordered]: 02/17/21 23:30
[2021-02-16 20:14] VITALS: BP 130/68; PULSE 93; RESP 16; TEMP 37.2; O2SAT 99
[2021-02-16] MEDS: 0.9% Saline Lock 10 ML Syringe IV (20:18)
[2021-02-16] MEDS: Acetaminophen 325 MG Tablet 650 MG PO (20:18)
[2021-02-17 02:41] VITALS: BP 122/64; PULSE 87; RESP 16; TEMP 36.4; O2SAT 98
[2021-02-17] MEDS: metroNIDAZOLE 500 MG Tablet PO ×3 (05:11→21:19)
[2021-02-17 08:40] VITALS: BP 144/76; PULSE 87; RESP 16; TEMP 36.6; O2SAT 96
[2021-02-17] MEDS: Enoxaparin 40 MG/0.4 ML Syringe SC (08:53)
[2021-02-17] MEDS: Psyllium 1 PACKET PO (08:53)
--- NOTE | 2021-02-17 12:34 | PCM.PN.HOSP ---
Documented by User: Dena Rich NP, JAVA PERFORMANCE ENGINEER-C 02/17/21 12:42 Subjective Subjective Patient seen and examined. Complains of nasal congestion which she reports began after he was tested for Covid. Denies upper respiratory symptoms or other symptoms or complaints. Objective Data Objective Data Vital Signs: Vital Signs Temp Pulse Resp BP Pulse Ox 98 F 87 16 144/76 H 96 02/17/21 08:40 02/17/21 08:40 02/17/21 08:40 02/17/21 08:40 02/17/21 08:40 Oxygen Delivery Method Room Air Weight: 284 lb 9.868 oz Body Mass Index (BMI) 39.6 Intake & Output: Intake and Output for Last 24 Hours 02/15/21 02/16/21 02/17/21 23:59 23:59 23:59 Intake Total 3920 / 3920 2920 / 2920 1420 / 1420 Output Total 4100 / 4100 2200 / 2200 1100 / 1100 Balance -180 / -180 720 / 720 320 / 320 Medical Nutrition Assessment Dietitian: Nutrition Therapy Diagnosis Start: 02/13/21 16:32 Freq: Status: Active Protocol: Document 02/13/21 16:32 RMA (Rec: 02/13/21 16:33 RMA [id number]) Nutrition Malnutrition Evidence of Malnutrition Exists No Intake Problem Increased Nutrient Needs (specify) Etiology (protein) r/t wounds Signs/Symptoms as evidenced by right lateral ankle 1x2cm, right gluteal fold 4x3.5x4cm, and left lateral lower leg 3.2x1.5x0. 2cm pressure injuries. Status Active Problem Recommendation Dietitian Recommendations/Changes Change diet to cardiac, carbohydrate controlled. Continue 1 pkt [facility] to [facility] in [facility] healing. D/c glucerna 120mL PO 4x/day at [facility]. Will add extra 1-2 oz lean meat/protein at meals. Pt willing to continue Tang BID at home for wound healing. Lab / Micro Data Result Diagrams: 02/16/21 08:52 02/16/21 08:52 Labs: Laboratory Results - last 24 hr 02/16/21 15:30: Vancomycin Trough 14.9 Micro: Microbiology 02/14/21 12:30 Bone - Ischial Bone Gram Stain - Final 02/14/21 12:30 Bone - Ischial Bone Wound Culture - Preliminary Streptococcus mitis/ oralis Staphylococcus capitis Gram positive christiana 02/14/21 12:30 Tissue - Ischial Pressure Sore Gram Stain - Final 02/14/21 12:30 Tissue - Ischial Pressure Sore Wound Culture - Final Proteus mirabilis Meth. resistant Staph. aureus Staphylococcus capitis Streptococcus mitis/ oralis Corynebacterium jeikeium Corynebacterium species 02/13/21 08:30 Wound - Ischium Gram Stain - Final 02/13/21 08:30 Wound - Ischium Wound Culture - Final Proteus mirabilis Meth. resistant Staph. aureus Corynebacterium striatum 02/13/21 08:30 Wound - Ischium Anaerobic Culture - Preliminary Checking for anaerobes, further studies to follow. 02/14/21 09:00 Mucosa - Nose SARS-CoV-2 Antigen (Rapid) - Final Physical Exam Const alert, oriented x3 and no apparent distress Orientation / Consciousness: awake, oriented to person, oriented to place and oriented to time HEENT normocephalic and moist oral mucous membranes Eyes PERRL, EOMs intact bilaterally and conjunctivae normal Neck no lymphadenopathy Resp normal respiratory effort and clear to auscultation bilaterally Cardio regular rate, regular rhythm and no murmurs Peripheral Pulses: pulses 2+ throughout GI normal to inspection, nondistended, normoactive bowel sounds, non-tender and non-distended Extremity normal to inspection Extremity Narrative: Paraplegic, chronic Skin no rashes or lesions noted Skin Narrative: left posterior heel ulcer, left lateral leg ulcer, perirectal ulcer/sacral ulcer, bilateral ischial ulcers. Lesions: no lesions Rashes: no rashes Trauma: no lacerations or abrasions Neuro CN's II-XII intact bilaterally, no focal motor deficits, no sensory deficits noted and deep tendon reflexes 2+ bilaterally Psych mental status grossly normal and affect normal Assessment & Plan Assessment/Plan (1) Osteomyelitis of pelvis: (2) Right ischial pressure sore, stage 4: PLAN: 1. Infected chronic right ischial pressure ulceration, stage IV with associated osteomyelitis- Sepsis ruled out. Dr. Granados, plastic surgery and ID consulted. Patient underwent excision of right ischial pressure sore with partial ostectomy for osteomyelitis 02/14/2021. Wound VAC placed. Postoperative wound cultures pending. On IV vancomycin, IV cefepime and Flagyl. Wound RN consult. MRSA and MSSA PCR positive. CM working on setup. Plan for IV antibiotics for 6 weeks with stop date 03/28/2021. Follow-up with ID in 2 weeks. 2. 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 Continue management of chronic wounds including left posterior heel ulcer, left lateral leg ulcer, perirectal ulcer and sacral ulcer. Left ischial previous wound found to have scar tissue and no surgical intervention needed. 3. Type 2 diabetes mellitus- not on regimen. HA1c 6.3%. 4. Hypertension-no longer on regimen. Blood pressure stable at this time. 5. Hyperlipidemia-no longer on regimen. Outpatient follow-up. 6. Obesity-encouraged dietary modifications. Nutrition consult. DVT prophylaxis-Lovenox This patient was seen by ONUR Potts under the supervision of Dr. Wayne. Documented by User: Dr. Dejan Wayne DO 02/17/21 13:25 Objective Data Lab / Micro Data Result Diagrams: 02/16/21 08:52 02/16/21 08:52 Charges/Coding Addendum Addendum: Patient was seen and examined today independently of Dena Rich, he does not complain of any fevers or chills. On examination he appeared in good health and spirits. Vital signs as documented. Skin warm and dry and without overt rashes. Patient's pressure injury area over the right ischial area was not examined-wound VAC in place. Neck without JVD, neck was supple, trachea midline, thyroid was normal. Lungs clear bilaterally, normal air movement was noted. Heart exam notable for regular rhythm, normal sounds and absence of murmurs, rubs or gallops. Abdomen unremarkable and without evidence of organomegaly, masses, or abdominal aortic enlargement. Bowel sounds are present, abdomen is not distended. Extremities-patient has atrophy of both lower extremities, no cyanosis was noted, no clubbing was noted. Neuro: Cranial nerves II through XII are grossly intact, no focal motor deficits were noted, sensation to light touch and pinprick intact, motor exam 5/5 throughout. Psych: Patient is alert and oriented x3, he does not appear anxious or depressed, he does not appear agitated. I have reviewed Dena Rich's progress note including her medical assessment and plan of care and endorse it. Visit Charges Inpatient E&M: 37493 Subs Hosp L2
[2021-02-17] MEDS: Fluticasone 0.05% 1 SPRAY NASAL.SRY 2 SPRAY NASAL (13:11)
[2021-02-17] MEDS: Acetaminophen 325 MG Tablet 650 MG PO ×2 (13:11→20:08)
[2021-02-17 15:00] VITALS: BP 128/76; PULSE 87; RESP 18; TEMP 36.4; O2SAT 98
[2021-02-17 20:02] VITALS: BP 152/93; PULSE 96; RESP 16; TEMP 36.8; O2SAT 99
[2021-02-17 21:59] VITALS: BP 131/75; PULSE 86
[2021-02-17] MEDS: Oxymetazoline 0.05% 1 SPRAY SPRAY.BTL NASAL (22:31)
--- NOTE | 2021-02-18 00:28 | PCM.RX.CS ---
Consult Pharmacy has been consulted to manage selected antiobiotic: Vancomycin Type of Consult: Follow-up Labs: Sodium 137 mmol/L (136-145) 02/16/21 08:52 Potassium 4.0 mmol/L (3.5-5.1) 02/16/21 08:52 Chloride 104 mmol/L (98-107) 02/16/21 08:52 Carbon Dioxide 28.0 mmol/L (21.0-32.0) 02/16/21 08:52 Anion Gap 5 (5-15) 02/16/21 08:52 BUN 10 mg/dL (7-18) 02/16/21 08:52 Creatinine 0.24 mg/dL (0.70-1.30) L 02/16/21 08:52 Est GFR (MDRD) Af Amer 562 mL/min (>60) 02/16/21 08:52 Est GFR (MDRD) Non-Af 464 mL/min (>60) 02/16/21 08:52 BUN/Creatinine Ratio 41.8 RATIO (10-20) H 02/16/21 08:52 Glucose 125 mg/dL (74-106) H 02/16/21 08:52 Vancomycin Trough 17.0 ug/mL (5.0-15.0) H 02/17/21 23:35 Microbiology: Microbiology 02/14/21 12:30 Tissue - Ischial Pressure Sore Gram Stain - Final 02/14/21 12:30 Tissue - Ischial Pressure Sore Wound Culture - Final Proteus mirabilis Meth. resistant Staph. aureus Staphylococcus capitis Streptococcus mitis/ oralis Corynebacterium jeikeium Corynebacterium species 02/14/21 12:30 Bone - Ischial Bone Gram Stain - Final 02/14/21 12:30 Bone - Ischial Bone Wound Culture - Preliminary Streptococcus mitis/ oralis Staphylococcus capitis Gram positive christiana 02/13/21 08:30 Wound - Ischium Gram Stain - Final 02/13/21 08:30 Wound - Ischium Wound Culture - Final Proteus mirabilis Meth. resistant Staph. aureus Corynebacterium striatum 02/13/21 08:30 Wound - Ischium Anaerobic Culture - Preliminary Checking for anaerobes, further studies to follow. 02/14/21 09:00 Mucosa - Nose SARS-CoV-2 Antigen (Rapid) - Final Goal Trough: 15-20 mcg/mL Pharmacy Plan for Drug Dosing: Pharmacy Service will continue to monitor and adjust dosing as required. TROUGH 17.0 NO CHANGES, FOLLOW UP TROUGH IN 4 DAYS Follow-Up Labs: Trough Vancomycin Labs to be done on [date and time ordered]: 02/21 @ [id number]
[2021-02-18 00:33] LABS: Probe Check PASS; Specimen Processing Control PASS
[2021-02-18 02:24] VITALS: BP 123/70; PULSE 87; RESP 16; TEMP 36.5; O2SAT 98
[2021-02-18] MEDS: metroNIDAZOLE 500 MG Tablet PO ×2 (05:47→13:39)
[2021-02-18 06:49] LABS: Absolute Lymphocyte Count 1.44 X10^3/uL (0.83-4.51); Absolute Neutrophil Count 6.5 X10^3/uL (2.0-7.7); Basophil# 0.03 X10^3/uL; Basophil% 0.3 % (0-1); Eosinophil# 0.34 X10^3/uL; Eosinophils% 3.7 % (0-5); Hematocrit 37.6 % (40-54); Hemoglobin 11.9 g/dL (13.0-16.5); Lymphocyte # 1.44 X10^3/ul (0.83-4.51); Lymphocyte % 15.7 % (19-41); Mean Corp Hgb Conc 31.6 g/dL (32-36); Mean Corpuscular Hgb 27.5 pg (27.0-32.0); Monocyte# 0.77 X10^3/uL; Monocyte% 8.4 % (0-10); NRBC Flagged by Analyzer 0 % (0-5); Neutrophil # 6.52 X10^3/uL (2.7-7.7); Neutrophil % 71.2 % (47-70); Platelet Count 285 K/mm3 (150-450); RBC Distribution Width CV 13.4 % (11.6-14.6); Red Blood Count 4.32 M/mm3 (4.6-6.2); White Blood Count 9.2 K/mm3 (4.4-11.0)
[2021-02-18 07:17] LABS: Anion Gap 6 (5-15); BUN 10 mg/dL (7-18); BUN/Creat Ratio 49.5 RATIO (10-20); Calcium,Total 8.2 mg/dL (8.5-10.1); Chloride 106 mmol/L (98-107); EST Glomerular Filtration Rate 563 mL/min (>60); Est Glom Filt Rate - Afr Amer 682 mL/min (>60); Glucose 141 mg/dL (74-106); Potassium 3.9 mmol/L (3.5-5.1); Sodium Level 137 mmol/L (136-145)
[2021-02-18 08:30] VITALS: BP 131/79; PULSE 89; RESP 16; TEMP 36.2; O2SAT 98
[2021-02-18] MEDS: Oxymetazoline 0.05% 1 SPRAY SPRAY.BTL NASAL (09:03)
[2021-02-18] MEDS: Enoxaparin 40 MG/0.4 ML Syringe SC (09:03)
[2021-02-18] MEDS: Fluticasone 0.05% 1 SPRAY NASAL.SRY 2 SPRAY NASAL (09:03)
[2021-02-18] MEDS: Psyllium 1 PACKET PO (09:04)
[2021-02-18] MEDS: DAKIN'S SOL HALF STRENGTH (=0.25%) 1 APPLIC TOPICAL (09:04)
--- NOTE | 2021-02-18 09:31 | CASEMGMT ---
Addendum entered by Destini Mckeon 02/18/21 15:29: RN CARRIE made patient aware of the dc plan. He verbalizes understanding. Addendum entered by Destini Mckeon 02/18/21 15:12: AURORA BUTLER in to pt room per pt request. He asked about the payment to [facility]. TC to Rozina and put her on speaker phone. She reviewed info with pt. Pt is agreeable to pay for medication. She reviewed the method of delivery with patient. Pt has done these in the past and states he is able to do at home. Pt is agreeable to come into the outpt infusion suite to have picc dressing changed and labs drawn. He prefers it to be on Tuesdays when he sees the wound center. TC to Outpt infusion and spoke with Chelsea. Faxed lab draw scripts and will ask to complete picc dressing change order tomorrow. Nevaeh nurse to change picc dressing this date before pt leaves. Spoke with who states he is ok with pt private hire CONSTRUCTION TECH to complete wound vac change for patient as she has done in the past per pt. Per , pt is to follow with on Tuesdays and he may see patient in a month. TC to Wound Center, pt has an appt tomorrow at 1:15pm. Addendum entered by Destini Mckeon 02/18/21 14:00: Dulce pt nurse updated RN CARRIE that pt states he will be leaving at 5pm today. TC to update as no response via cortext. Spoke with his office who will page him. Addendum entered by Destini Mckeon 02/18/21 12:44: Received tc back from Mana. [facility] unable to accept pt. Received tc back from Rozina at [facility], she states they do not have a nurse to go to [place]. Also pt has a balance from the last time IV antibiotics were received and the current prescribed antibiotics will cost pt $283.77 per week. AURORA BUTLER in to discuss options with patient. Pt states he cannot/will not pay for the IV antibiotics. Discussed the option of going to SNF. Pt states fk that, I would rather go home and . Updated Wilma COMPOSITION ROLL MAKER AND CUTTER of situation. HEIDY Frey and this CM again went back to pt room and pt is adamantly refusing to go to SNF. Cortext sent to Dr. Mccallum at this time to update. Addendum entered by Destini Mckeon 02/18/21 11:31: Received final signed scripts for IV atb, faxed to [facility]. Received tc back from Mana chaves at [facility], gave information for referral at this time. She will review and call this CM back. Addendum entered by Destini Mckeon 02/18/21 09:42: Received vm from [facility], unable to accept pt d/t staffing and location of pt. Original Note: TC to [facility] to see if there is any possibility to have pt seen this week and if so which day, left message on [facility] vm. TC to [facility], spoke with Rozina faxed referral info and questioned if they have a nurse who could go out to reinforce IV education. She states she will check but it depends if they have someone in that area. Referral faxed to them at this time to verify benefits.
--- NOTE | 2021-02-18 09:34 | NURSING ---
wound photo: right ischium
--- NOTE | 2021-02-18 11:50 | PCM.PN.ID ---
Physical Exam Narrative Feeling ok, no fever, no n/v/d. Const alert and no apparent distress General Appearance: cooperative Resp normal air movement and clear to auscultation bilaterally Cardio regular rate and regular rhythm GI normal to inspection, nondistended, normoactive bowel sounds Skin Skin Narrative: picc in place ID ID: Route of nutrition/ use of supplements: [] Nutritional Intake: [] IV Site: [] Lee Catheter: [] Assessment & Plan Assessment/Plan (1) Paraplegia: (2) Sepsis: PLAN: sepsis due to pelvic osteo - Dr. Granados following, wound cxs with MRSA wtrep, CoNS, corynebacteria x2, proteus, AcB. On empiric vanc/tori. Taken to OR 02/[address] Granados. Ok for 6 weeks iv vanc and cefepime and po flagyl, stop date 03/28/21, weekly bmp, cbc, and esr. ID followup in 2 weeks. Will follow, d/w Dr. Pichardo (3) Osteomyelitis of pelvis:
--- NOTE | 2021-02-18 15:05 | PCM.DC ---
Discharge Instructions Diet Discharge Diet: Carb Control Diet Activity Discharge Activity: No Restrictions Dressing / Incision Call your doctor if you observe: Fever of 101 or Higher, Shortness of breath, Dizziness and Chest pain Follow Up Care Test Results: Test results from this visit will be discussed in further detail at your follow-up appointment, if applicable. Discharge Plan Admission Admit Date/Time: 02/12/21 16:16 Primary Reason for Your Visit: Wound, pelvic osteomyelitis Attending Provider: Ilan Pichardo Primary Care Provider: Lee Andersen Consulting Providers: Solitario Granados ; Víctor Mccallum Discharge Orders/Prescriptions Prescriptions: New vancomycin in 0.9 % sodium chl 1.75 gram/250 mL solution 1.75 g IV Q8H 37 Days Qty: 111 RF: 0 cefepime 2 gram recon soln 2 g IV Q8H 37 Days Qty: 111 RF: 0 metronidazole [Flagyl] 500 mg tablet 500 mg PO TID Qty: 111 RF: 0 Continued psyllium Packet 1 packet PO DAILY RF: 0 nutritional supplements Powder 1 ea PO BID RF: 0 Referrals / Follow Up: Wound Health [Outside] - In 1 Week Lee Andersen MD [Primary Care Provider] - In 1 Week Solitario Granados MD [STAFF PHYSICIAN] - In 1 Week Disposition Disposition (needs filled in before D/C Order can be placed): Home, Self Care
--- NOTE | 2021-02-18 15:19 | PCM.DC.SUM ---
Documented by User: Dena Rich NP, FOOD PRODUCTION ASSOCIATE-C 02/18/21 15:24 Providers Date of Admission: 02/12/21 Date of Discharge: 02/18/21 Primary Care Physician: Dr. Lee Andersen MD Consultations 02/12/21 16:39 Consult: Onc/Wound/environmental science professor Routine Comment: Reason for Consult:: deep wound infection Consult: Plastic Surgery Routine Consulting Provider: Solitario Granados Reason for Consult: deep wound infection EMERGENT Consult: No Notified: Yes Date Notified: 02/12/21 Time Notified: 16:39 Method of Notification: Verbal 02/13/21 11:00 Consult: Infectious Disease Routine Consulting Provider: Víctor Mccallum Reason for Consult: MRSA deep wound infection EMERGENT Consult: No Notified: Yes Date Notified: 02/13/21 Time Notified: 11:00 Method of Notification: Verbal Reason For Visit: RT ISCHIAL DEEP WOUND Diagnosis Discharge Diagnosis (1) Paraplegia: Status: Chronic Code(s): G82.20 - Paraplegia, unspecified (2) Sepsis: Status: Resolved Code(s): A41.9 - Sepsis, unspecified organism (3) Osteomyelitis of pelvis: Status: Chronic Code(s): M86.9 - Osteomyelitis, unspecified Medications at Discharge Home Medications nutritional supplements 1 ea PO BID 02/12/21 psyllium 1 packet PO DAILY 02/12/21 cefepime 2 g IV Q8H 37 Days #111 vial 02/18/21 metronidazole [Flagyl] 500 mg PO TID #111 tab 02/18/21 vancomycin in 0.9 % sodium chl 1.75 g IV Q8H 37 Days #111 bag 02/18/21 Hospital Course Operations - (excision of right ischial pressure sore with partial ostectomy for osteomyelitis 02/14/2021) Procedures None Summary of Care Provided Minutes Spent on Discharge: 35 Hospital Course: Patient is a 35-year-old male admitted 02/12/2021 due to right ischial wound. 1. Infected chronic right ischial pressure ulceration, stage IV with associated osteomyelitis- Sepsis ruled out. Dr. Granados, plastic surgery and ID consulted. Patient underwent excision of right ischial pressure sore with partial ostectomy for osteomyelitis 02/14/2021. Wound VAC placed. Postoperative wound cultures growing multiple organisms. On IV vancomycin, IV cefepime and PO Flagyl. MRSA and MSSA PCR positive. Plan for IV antibiotics for 6 weeks with stop date 03/28/2021. Follow-up with ID in 2 weeks. Weekly BMP, CBC, ESR per ID. Follow-up with wound center in 1 week. Patient has private hire RN who will help with wound VAC/dressing changes. Home antibiotic set up completed. Follow-up with plastic surgery in 1 week as well. 2. 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 Continue management of chronic wounds including left posterior heel ulcer, left lateral leg ulcer, perirectal ulcer and sacral ulcer. Left ischial previous wound found to have scar tissue and no surgical intervention needed. 3. Type 2 diabetes mellitus- not on regimen. HA1c 6.3%. 4. Hypertension-no longer on regimen. Blood pressure stable at this time. 5. Hyperlipidemia-no longer on regimen. Outpatient follow-up. 6. Obesity-encouraged dietary modifications. Nutrition consult. Physical Exam Const alert, oriented x3 and no apparent distress Orientation / Consciousness: awake, oriented to person, oriented to place and oriented to time HEENT normocephalic and moist oral mucous membranes Eyes PERRL, EOMs intact bilaterally and conjunctivae normal Neck no lymphadenopathy Resp normal respiratory effort and clear to auscultation bilaterally Cardio regular rate, regular rhythm and no murmurs Peripheral Pulses: pulses 2+ throughout GI normal to inspection, nondistended, normoactive bowel sounds, non-tender and non-distended Extremity normal to inspection Extremity Narrative: Paraplegic, chronic Skin no rashes or lesions noted Skin Narrative: left posterior heel ulcer, left lateral leg ulcer, perirectal ulcer/sacral ulcer, bilateral ischial ulcers. Lesions: no lesions Rashes: no rashes Trauma: no lacerations or abrasions Neuro CN's II-XII intact bilaterally, no focal motor deficits, no sensory deficits noted and deep tendon reflexes 2+ bilaterally Psych mental status grossly normal and affect normal Patient seen and examined prior to discharge. Physical assessment as noted above. Patient is stable for discharge with follow up recommendations as noted above. This patient was seen by ONUR Potts under the supervision of Dr. Pichardo. Medical Records Data Medical Nutrition Assessment Dietitian: Nutrition Therapy Diagnosis Start: 02/13/21 16:32 Freq: Status: Active Protocol: Document 02/13/21 16:32 RMA (Rec: 02/13/21 16:33 RMA [id number]) Nutrition Malnutrition Evidence of Malnutrition Exists No Intake Problem Increased Nutrient Needs (specify) Etiology (protein) r/t wounds Signs/Symptoms as evidenced by right lateral ankle 1x2cm, right gluteal fold 4x3.5x4cm, and left lateral lower leg 3.2x1.5x0. 2cm pressure injuries. Status Active Problem Recommendation Dietitian Recommendations/Changes Change diet to cardiac, carbohydrate controlled. Continue 1 pkt Tang PO BID at [facility] to aid in wound healing. D/c glucerna 120mL PO 4x/day at [facility]. Will add extra 1-2 oz lean meat/protein at meals. Pt willing to continue Tang BID at home for wound healing. Weight / BMI Weight Weight: 284 lb 9.868 oz Body Mass Index (BMI) 39.6 ABG / Lab / Microbiology Data Result Diagrams: 02/18/21 06:05 02/18/21 06:05 Laboratory: Laboratory Results - last 24 hr 02/17/21 22:55: COVID-19 ([facility]) Negative 02/17/21 23:35: Vancomycin Trough 17.0 H 02/18/21 06:05: WBC 9.2, RBC 4.32 L, Hgb 11.9 L, Hct 37.6 L, MCV 87.0, MCH 27.5, MCHC 31.6 L, RDW Std Deviation 43.0, RDW Coeff of Darrell 13.4, Plt Count 285, MPV 11.0, Immature Gran % (Auto) 0.700, Neut % (Auto) 71.2 H, Lymph % (Auto) 15.7 L, [place] % (Auto) 8.4, Eos % (Auto) 3.7, Baso % (Auto) 0.3, Absolute Neuts (auto) 6.5, Absolute Lymphs (auto) 1.44, Nucleated RBC % 0 02/18/21 06:05: Sodium 137, Potassium 3.9, Chloride 106, Carbon Dioxide 25.0, Anion Gap 6, BUN 10, Creatinine 0.20 L, Estim Creat Clear Calc 538.60, Est GFR (MDRD) Af Amer 682, Est GFR (MDRD) Non-Af 563, BUN/Creatinine Ratio 49.5 H, Glucose 141 H, Calcium 8.2 L Microbiology: Microbiology 02/14/21 12:30 Bone - Ischial Bone Gram Stain - Final 02/14/21 12:30 Bone - Ischial Bone Wound Culture - Final Streptococcus mitis/ oralis Staphylococcus capitis Corynebacterium jeikeium 02/14/21 12:30 Bone - Ischial Bone Anaerobic Culture - Final No anaerobic bacteria isolated. 02/13/21 08:30 Wound - Ischium Gram Stain - Final 02/13/21 08:30 Wound - Ischium Wound Culture - Final Proteus mirabilis Meth. resistant Staph. aureus Corynebacterium striatum 02/13/21 08:30 Wound - Ischium Anaerobic Culture - Final No anaerobic bacteria isolated. 02/14/21 12:30 Tissue - Ischial Pressure Sore Gram Stain - Final 02/14/21 12:30 Tissue - Ischial Pressure Sore Wound Culture - Final Proteus mirabilis Meth. resistant Staph. aureus Staphylococcus capitis Streptococcus mitis/ oralis Corynebacterium jeikeium Corynebacterium species 02/14/21 09:00 Mucosa - Nose SARS-CoV-2 Antigen (Rapid) - Final D/C Instructions Discharge Diet: Carb Control Diet Call your doctor if you observe: Fever of 101 or Higher, Shortness of breath, Dizziness and Chest pain Meaningful Use Info Meaningful Use Diagnoses (Choose all that apply): None applicable Discharge Plan Admission Admit Date/Time: 02/12/21 16:16 Primary Reason for Your Visit: Wound, pelvic osteomyelitis Attending Provider: Ilan Pichardo Primary Care Provider: Lee Andersen Consulting Providers: Solitario Granados ; Víctor Mccallum Discharge Orders/Prescriptions Prescriptions: New vancomycin in 0.9 % sodium chl 1.75 gram/250 mL solution 1.75 g IV Q8H 37 Days Qty: 111 RF: 0 cefepime 2 gram recon soln 2 g IV Q8H 37 Days Qty: 111 RF: 0 metronidazole [Flagyl] 500 mg tablet 500 mg PO TID Qty: 111 RF: 0 Continued psyllium Packet 1 packet PO DAILY RF: 0 nutritional supplements Powder 1 ea PO BID RF: 0 Referrals / Follow Up: Wound Health [Outside] - In 1 Week Lee Andersen MD [Primary Care Provider] - In 1 Week Solitario Granados MD [STAFF PHYSICIAN] - In 1 Week Disposition Disposition (needs filled in before D/C Order can be placed): Home, Self Care Documented by User: Dr. Ilan Pichardo DO 02/18/21 16:23 Providers Date of Admission: 02/12/21 Reason For Visit: RT ISCHIAL DEEP WOUND Medications at Discharge Home Medications nutritional supplements 1 ea PO BID 02/12/21 psyllium 1 packet PO DAILY 02/12/21 cefepime 2 g IV Q8H 37 Days #111 vial 02/18/21 metronidazole [Flagyl] 500 mg PO TID #111 tab 02/18/21 vancomycin in 0.9 % sodium chl 1.75 g IV Q8H 37 Days #111 bag 02/18/21 Hospital Course Operations - (Excision right ischial/perineal pressure sore, Stage IV, with partial ostectomy for osteomyelitis.) Procedures None Summary of Care Provided Minutes Spent on Discharge: 32 Hospital Course: 35-year-old paraplegic presented from the wound care center because of foul-smelling drainage from his pressure sores. Patient was started on antibiotics and patient underwent surgery which was excision of the right ischial/perineal pressure sore stage IV with partial ostectomy for osteomyelitis. Patient was seen by infectious disease as well. Culture on the grew out Streptococcus mitis, staph capitis and Corynebacterium. Patient will be discharged with 6 weeks of cefepime vancomycin and metronidazole. The latter being oral. Patient will follow up with Dr. Granados in 1 week as well as wound care. Patient declined longterm facility. She patient insurance would not cover home health care as the patient will pay [id number] for home health care expenses. Patient feels comfortable managing IV antibiotics as he has done so in the past. Physical Exam Const alert Eyes PERRL Resp normal respiratory effort and clear to auscultation bilaterally Cardio regular rate, regular rhythm, S1 normal heart sound and S2 normal heart sound GI normal to inspection, nondistended, normoactive bowel sounds ABG / Lab / Microbiology Data Result Diagrams: 02/18/21 06:05 02/18/21 06:05 Discharge Plan Admission Admit Date/Time: 02/12/21 16:16 Primary Reason for Your Visit: Wound, pelvic osteomyelitis Attending Provider: Ilan Pichardo Primary Care Provider: Lee Andersen Consulting Providers: Solitario Granados ; Víctor Mccallum Discharge Orders/Prescriptions Prescriptions: New vancomycin in 0.9 % sodium chl 1.75 gram/250 mL solution 1.75 g IV Q8H 37 Days Qty: 111 RF: 0 cefepime 2 gram recon soln 2 g IV Q8H 37 Days Qty: 111 RF: 0 metronidazole [Flagyl] 500 mg tablet 500 mg PO TID Qty: 111 RF: 0 Continued psyllium Packet 1 packet PO DAILY RF: 0 nutritional supplements Powder 1 ea PO BID RF: 0 Referrals / Follow Up: Wound Health [Outside] - In 1 Week Lee Andersen MD [Primary Care Provider] - In 1 Week Solitario Granados MD [STAFF PHYSICIAN] - In 1 Week Disposition Disposition (needs filled in before D/C Order can be placed): Home, Self Care Charges/Coding Visit Charges Inpatient E&M: 78225 Disch Hosp
--- NOTE | 2021-02-18 15:21 | CHAPLAIN ---
Type of Pastoral Visit _x__ Initial Visit ___ Follow-up Visit ___ On-call Visit ___ General Patient Visit ___ Spiritual Assessment ___ Family Conference ___ Bereavement ___ Rapid Response ___ Code Blue ___ Other (describe below) Pastoral Care Referral From _x__ Patient ___ Family ___ Nurse ___ Physician ___ Ratings Analyst ___ Tool And Die Repairer ___ Other (describe below) Sacrament/Intervention ___ Active listening ___ Anointing ___ Cheondoism ___ Bereavement ___ Communion ___ Shireen exploration ___ ___ Life review ___ Prayer ___ Reconciliation ___ Sacrament of Sick _x__ Supportive presence ___ Wedding ___ Other (describe below) Pastoral Comments mother of patient is with him in the room; pt states that he is doing pretty well although frustrated with the system; pt goal is to get home
[2021-02-18 18:43] VITALS: BP 118/68
--- NOTE | 2021-02-18 19:40 | PN.SURG_ITS ---
Subjective Subjective Postop #4 Patient is resting comfortably. Objective Data Objective Data Vital Signs: Vital Signs Temp Pulse Resp BP Pulse Ox 97.1 F L 89 16 118/68 98 02/18/21 08:30 02/18/21 08:30 02/18/21 08:30 02/18/21 18:43 02/18/21 08:30 Oxygen Delivery Method Room Air Weight: 284 lb 9.868 oz Body Mass Index (BMI) 39.6 Intake & Output: Intake and Output for Last 24 Hours 02/16/21 02/17/21 02/18/21 23:59 23:59 23:59 Intake Total 2920 / 2920 2965 / 3765 4935 / 4935 Output Total 2200 / 2200 1750 / 3875 4575 / 4575 Balance 720 / 720 1215 / -110 360 / 360 Lab / Micro Data Attestation: I reviewed the patient's lab results. Result Diagrams: 02/18/21 06:05 02/18/21 06:05 Labs: Laboratory Results - last 24 hr 02/17/21 22:55: COVID-19 ([facility]) Negative 02/17/21 23:35: Vancomycin Trough 17.0 H 02/18/21 06:05: WBC 9.2, RBC 4.32 L, Hgb 11.9 L, Hct 37.6 L, MCV 87.0, MCH 27.5, MCHC 31.6 L, RDW Std Deviation 43.0, RDW Coeff of Darrell 13.4, Plt Count 285, MPV 11.0, Immature Gran % (Auto) 0.700, Neut % (Auto) 71.2 H, Lymph % (Auto) 15.7 L, [place] % (Auto) 8.4, Eos % (Auto) 3.7, Baso % (Auto) 0.3, Absolute Neuts (auto) 6.5, Absolute Lymphs (auto) 1.44, Nucleated RBC % 0 02/18/21 06:05: Sodium 137, Potassium 3.9, Chloride 106, Carbon Dioxide 25.0, Anion Gap 6, BUN 10, Creatinine 0.20 L, Estim Creat Clear Calc 538.60, Est GFR (MDRD) Af Amer 682, Est GFR (MDRD) Non-Af 563, BUN/Creatinine Ratio 49.5 H, Glucose 141 H, Calcium 8.2 L Micro: Microbiology 02/14/21 12:30 Bone - Ischial Bone Gram Stain - Final 02/14/21 12:30 Bone - Ischial Bone Wound Culture - Final Streptococcus mitis/ oralis Staphylococcus capitis Corynebacterium jeikeium 02/14/21 12:30 Bone - Ischial Bone Anaerobic Culture - Final No anaerobic bacteria isolated. 02/13/21 08:30 Wound - Ischium Gram Stain - Final 02/13/21 08:30 Wound - Ischium Wound Culture - Final Proteus mirabilis Meth. resistant Staph. aureus Corynebacterium striatum 02/13/21 08:30 Wound - Ischium Anaerobic Culture - Final No anaerobic bacteria isolated. 02/14/21 12:30 Tissue - Ischial Pressure Sore Gram Stain - Final 02/14/21 12:30 Tissue - Ischial Pressure Sore Wound Culture - Final Proteus mirabilis Meth. resistant Staph. aureus Staphylococcus capitis Streptococcus mitis/ oralis Corynebacterium jeikeium Corynebacterium species 02/14/21 09:00 Mucosa - Nose SARS-CoV-2 Antigen (Rapid) - Final Physical Exam Narrative General - Alert and Oriented HEENT - PERRL. EOMI. Abdomen - Soft and nondistended. Buttock - right ischial pressure sore is stable. VAC changed. No active blee ding seen. No active bleeding noted. Neuro - CN II-XII grossly intact. Psych - Normal mood and affect. Assessment & Plan Assessment/Plan (1) Right ischial pressure sore, stage 4: (2) Osteomyelitis of pelvis: (3) Type 2 diabetes mellitus: QUALIFIERS: Diabetes mellitus intermediate designer insulin use: without intermediate designer use Diabetes mellitus complication status: with skin complications (4) Paraplegia: (5) Personal history of Methicillin resistant Staphylococcus aureus infection: (6) Urinary incontinence, nocturnal enuresis: (7) Smoker: (8) Pressure sore of left ischium, stage 4: PLAN: Continue the VAC to be changed at home 3x per week at 150 mmHg continuous suction. Operative cultures show Proteus mirabilis, MRSA, Methicillin resistant Staphylococcus capitis, Streptococcus mitis/oralis, and Corynebacterium jeikeium in the soft tissue and Streptococcus mitis/oralis, Staphylococcus capitis, and Corynebacterium jeikeium in the bone. Pathology is pending. Infectious Diseases will treat him for 6 weeks with Vancomycin, Cefepime, and Flagyl. Anticipate increased metabolic demands from the infection and the pressure sore. Prealbumin was 12.3 on 02/16/21. Encourage nutritional supplementation with protein to help the healing process. Anticipate discharge home today. Followup at the Wound Center. After his 6 week course of IV antibiotics, can discuss further surgery with wound closure with myocutaneous flaps. With the amount of organisms present and MRSA, would need another operative debridement prior to wound closure. He voices understanding. Patient was informed of the risks and complications of the procedure including alternatives to surgery. These were discussed with the patient personally. Patient voices understanding and wishes to proceed. He understands that the flap surgery necessitates 6 weeks of bedrest. Encouraged patient to stop smoking as it may have deleterious effects on wound healing.
--- NOTE | 2021-02-19 13:45 | CASEMGMT ---
AURORA BUTLER faxed the picc dressing changes and flush orders to outpt infusion at this time.
== END 2021-02-18 19:02 | disposition home or self-care (01) | DRG 628 ==
PROVIDERS: Family Medicine; Internal Medicine Infectious Disease; Nurse Practitioner Family; Physician Assistant; Surgery; Admitting Provider Internal Medicine; PCP Internal Medicine
PROC: 0QB20ZZ Excision of Right Pelvic Bone, Open Approach (ICD-10-PCS; CPT 15999; principal; 2021-02-14 11:00)
DX: E11.69 Type 2 diabetes mellitus with other specified complication (principal); L89.894 Pressure ulcer of other site, stage 4; L89.314 Pressure ulcer of right buttock, stage 4; L89.324 Pressure ulcer of left buttock, stage 4; G82.20 Paraplegia, unspecified; L97.429 Non-pressure chronic ulcer of left heel and midfoot with unspecified severity; L03.317 Cellulitis of buttock; L97.929 Non-pressure chronic ulcer of unspecified part of left lower leg with unspecified severity; K62.6 Ulcer of anus and rectum; M86.68 Other chronic osteomyelitis, other site; B96.4 Proteus (mirabilis) (morganii) as the cause of diseases classified elsewhere; B95.8 Unspecified staphylococcus as the cause of diseases classified elsewhere; B96.89 Other specified bacterial agents as the cause of diseases classified elsewhere; B95.62 Methicillin resistant Staphylococcus aureus infection as the cause of diseases classified elsewhere; E11.622 Type 2 diabetes mellitus with other skin ulcer; N39.44 Nocturnal enuresis; R33.9 Retention of urine, unspecified; E11.621 Type 2 diabetes mellitus with foot ulcer; D18.09 Hemangioma of other sites; E66.9 Obesity, unspecified; Z68.39 Body mass index [BMI] 39.0-39.9, adult; G47.33 Obstructive sleep apnea (adult) (pediatric); I10 Essential (primary) hypertension; F17.210 Nicotine dependence, cigarettes, uncomplicated; Z86.14 Personal history of Methicillin resistant Staphylococcus aureus infection; Z99.3 Dependence on wheelchair; Z87.440 Personal history of urinary (tract) infections
CPT/HCPCS: 11042; 36415; 36569; 72192; 80048; 80053; 80202; 82962; 83036; 84134; 85025; 87070; 87075; 87077; 87102; 87176; 87186; 87205; 87206; 87426; 87635; 87640; 88305; 88311; 93005; 97802; 97803; J2185; J7040; J7120; U0005; A4216; U0003

== ENCOUNTER → 2021-02-27 14:24 | Outpatient (CLI) | payer MEDICARE, SELFPAY ==
[2021-02-25 14:22] VITALS: BMI 39.6
[2021-02-27 15:21] LABS: Hematocrit 39.3 % (40-54); Hemoglobin 12.7 g/dL (13.0-16.5); Mean Corp Hgb Conc 32.3 g/dL (32-36); Mean Corpuscular Hgb 28.2 pg (27.0-32.0); Mean Corpuscular Volume 87.1 fL (80-94); Mean Platelet Vol. 10.3 fl (6.2-12.0); Platelet Count 355 K/mm3 (150-450); RBC Distribution Width CV 14.1 % (11.6-14.6); RBC Distribution Width SD 44.7 fl (35.1-43.9); Red Blood Count 4.51 M/mm3 (4.6-6.2)
[2021-02-27 15:29] LABS: Erythrocyte Sedimentation Rate 66 mm/hr (0-20)
[2021-02-27 15:44] LABS: Anion Gap 6 (5-15); BUN 10 mg/dL (7-18); BUN/Creat Ratio 36.5 RATIO (10-20); Calcium,Total 8.9 mg/dL (8.5-10.1); Chloride 100 mmol/L (98-107); Creatinine, Serum 0.27 mg/dL (0.70-1.30); EST Glomerular Filtration Rate 396 mL/min (>60); Est Glom Filt Rate - Afr Amer 480 mL/min (>60); Glucose 135 mg/dL (74-106); Sodium Level 134 mmol/L (136-145)
[2021-02-27 15:50] LABS: Vancomycin, Trough Level 19.8 ug/mL (5.0-15.0)
== END ==
LOC: MEDOUTP 14:26
PROVIDERS: PCP Internal Medicine; Referring Provider Internal Medicine Infectious Disease; Visit Provider Internal Medicine Infectious Disease
DX: M46.28 Osteomyelitis of vertebra, sacral and sacrococcygeal region (principal)
CPT/HCPCS: 36415; 80048; 80202; 85027; 85652; 96523; A4216

== ENCOUNTER 2021-03-04 13:45 | Outpatient (RCR) | payer MEDICARE, SELFPAY ==
[2021-02-14 09:21] VITALS: BMI 39.6
[2021-02-17 00:17] VITALS: BP 114/82; PULSE 90; RESP 16; TEMP 37
[2021-02-25 14:22] VITALS: BP 138/76; PULSE 118; RESP 22; TEMP 36.5; BMI 39.6
--- NOTE | 2021-02-25 15:04 | PN.PCM_ITS ---
History of Present Illness Date of Service: 02/25/21 Chief Complaint: Ulcer on left posterior heel, left lateral leg and right and left gluteal fold, temi-rectal ulcer and sacral ulcer History of Wound: Adiel is a 34 year old male who is wheelchair bound and paraplegic. [facility] areas he is presenting for evaluation today. He has had his current ulcers for over 2 months. He has been treating the areas with silvercell dressings and recently was placed on an antibiotic by his PCP. The left lower leg ulcers appear to be from pressure. He is unsure of how they developed. His ulcers on his sacrum and right buttock are from pressure and friction from transferring from his wheelchair to chair with his slide board. He also has an area that was from a temi-rectal abscess that is still open and draining. He reports that he is independent in his ADL's but does have a nurse that comes to care for him daily in the morning for a short time daily. He has a history of Type 2 DM, last A1C 7.0% on 12/20/2019. He has been seen at both our wound healing center and [facility]'s in [place] in the past for previous uclers. He has previously received Apligraf to his ulcers of his lower legs but the last application was probably 9 months ago. The patient denies any fever, chills, nausea, vomiting, or diarrhea. Denies any signs of infection, including increasing pain, redness, swelling, or drainage from affected area. Surgery 02/14/21 - Excision right ischial/perineal pressure sore, Stage IV, with partial ostectomy for osteomyelitis. Progress of Wound: Right ischial ulcer into the muscle and and bone exposure. Left lateral leg ulcer is stable. Objective Data Objective Data Vital Signs: Vital Signs Temp Pulse Resp BP 97.7 F L 118 H 22 H 138/76 H 02/25/21 14:22 02/25/21 14:22 02/25/21 14:22 02/25/21 14:22 Weight: 330 lb Body Mass Index (BMI) 39.6 Charges/Coding Procedures Integumentary [id number]: [id number] Global Visit Debridement Note Debridement Note Post-Debridement Measurements and Additional Note: Post-Debridement Measurements/Treatment WC - Nurse 1 - General Ulcer Assessment Start: 02/25/21 14:22 Freq: Status: Active Protocol: SHALONDA Activity Type Activity Date Activity User E-Sign Co-Sign Detail Recorded Client Recorded Date Recorded By Document 02/25/21 14:22 DL [id number] 02/25/21 14:35 DL 02/25/21 14:22 WC - Today's Visit Information Type of service Follow-up Visit (Physician/CONTRACT GRAPHIC DESIGNER ) Arrival Mode Ambulatory Transfer Assistance None Patient Identification Verified (Name & Yes ) Patient Requires Transmission-Based No Precautions Height and Weight Body Mass Index (BMI) 39.6 BMI Classification Obese Vital Signs Temperature (97.8 F-99.1 F) 97.7 F L Temperature Source Temporal Pulse Rate (60-100) 118 H Pulse Location Monitor Respiratory Rate (12-18) 22 H Respiratory rate source Observation Blood Pressure (90/60-120/80) 138/76 H Blood Pressure Mean (mm Hg) 96 Source Monitor History Since Last Visit- (Skip if this is Patient's initial visit) Have you changed medications since your No last visit? Any new allergies or adverse reactions No Had a fall/change in ADL's that may No increase risk of falls Signs or symptoms of abuse and/or No neglect since last visit Have you been in the hospital since your Yes last visit? Has dressing in place as prescribed Yes Has compression in place as prescribed N/A Has offloadiing in place as prescribed Yes Experienced any changes in pain level or No management Pain Scale: 0-10 Numeric Is Patient Pain Free? Yes - Nurse 1 - General Ulcer Measurement Start: 02/25/21 14:22 Freq: Status: Active Protocol: Activity Type Activity Date Activity User E-Sign Co-Sign Detail Recorded Client Recorded Date Recorded By Document 02/25/21 14:22 DL [id number] 02/25/21 14:35 DL 02/25/21 14:22 Wound Center Nurse 1 10. R buttock fold -Current Size (cm) - Length 10.4 -Current Size (cm) - Width 2 -Current Size (cm) - Depth 5.2 -Total Square Cm 20.8 -Photo Taken No -Exudate Amt Medium -Exudate Type Serosanguineous -Wound Margin Distinct, Outline Attached -Granulation Amt Large (67-100%) -Granulation Quality Red -Necrosis Amt Small (1-33%) -Necrotic Tissue Type Adherent Slough -Structure Exposed N/A -Texture (Temi-wound Skin Appearance) Scarring -Moisture (Temi-wound Skin Appearance) No Abnormality -Color (Temi-wound Skin Appearance) Ecchymosis, Rubor -Ulcer Cleansing Wound Cleanser -Foul Odor after Cleansing No -Anesthetic Used 4% Lidocaine Solution 7. L lateral LE -Current Size (cm) - Length 1.5 -Current Size (cm) - Width 0.5 -Current Size (cm) - Depth 0.2 -Total Square Cm 0.75 -Photo Taken No -Exudate Amt Small -Wound Margin Distinct, Outline Attached -Granulation Amt Medium (34-66%) -Granulation Quality [place] -Necrosis Amt Small (1-33%) -Necrotic Tissue Type Eschar -Structure Exposed N/A -Texture (Temi-wound Skin Appearance) Rash -Moisture (Temi-wound Skin Appearance) No Abnormality -Color (Tmei-wound Skin Appearance) Hemosiderin Staining -Temperature (Temi-wound Skin No Abnormality Appearance) (Pt Warm) -Tenderness on Palpation (Temi-wound No Skin Appearance) -Ulcer Cleansing Wound Cleanser -Foul Odor after Cleansing Yes, Due to Product Use -Anesthetic Used 4% Lidocaine Solution WC - Nurse 2 - General Ulcer CM Notes Start: 02/25/21 14:22 Freq: Status: Active Protocol: Activity Type Activity Date Activity User E-Sign Co-Sign Detail Recorded Client Recorded Date Recorded By Document 02/25/21 14:46 CHARLI [id number] 02/25/21 14:54 CHARLI 02/25/21 14:46 Wound Center Nurse 2 10. R buttock fold -Time 14:46 -Correct Patient Yes -Correct Side, Site, Position Yes -Correct Procedure Yes -Procedure Performed Yes -Type of Procedure Debridement -Clinical Debridement Muscle / Fascia -Tissue Removed Muscle,Fascia -Post Debridement (cm) - Length 9.3 -Post Debridement (cm) - Width 4 -Post Debridement (cm) - Depth 9.5 -Total Square (Post) (cm) 37.2 -Area of Debridement (cm) - Length 4 -Area of Debridement (cm) - Width 9.5 -Total Square (Area) (cm) 38.0 -Tunneling No -Undermining/Tunneling No -Circular Undermining No -Wound/Ulcer Outcome Not Healed -Ulcer Cleansing Rinsed/ Irrigated with Saline -Foul Odor after Cleansing No -Bioengineered Tissue No -Bleeding Controlled with Pressure -Offloading No -Treatment Response Procedure Tolerated Well -Debridement - Muscle / Fascia, 1st Yes 20sq cm -Debridement, Muscle/Fascia, ea addt'l 1 20sq cm or part thereof 7. L lateral LE -Time 14:51 -Correct Patient Yes -Correct Side, Site, Position Yes -Correct Procedure Yes -Procedure Performed Yes -Type of Procedure Debridement -Clinical Debridement Subcutaneous -Tissue Removed Subcutaneous -Post Debridement (cm) - Length 2.5 -Post Debridement (cm) - Width 0.5 -Post Debridement (cm) - Depth 0.2 -Total Square (Post) (cm) 1.25 -Area of Debridement (cm) - Length 2.5 -Area of Debridement (cm) - Width 0.5 -Total Square (Area) (cm) 1.25 -Tunneling No -Undermining/Tunneling No -Circular Undermining No -Wound/Ulcer Outcome Not Healed -Ulcer Cleansing Rinsed/ Irrigated with Saline -Foul Odor after Cleansing No -Bioengineered Tissue No -Bleeding Controlled with Pressure -Offloading No -Treatment Response Procedure Tolerated Well -Debridement - Subq, 1st 20sq cm Yes Pain Scale: 0-10 Numeric Is Patient Pain Free? Yes - Nurse 3 - General Ulcer D/C NN Start: 02/25/21 14:22 Freq: Status: Active Protocol: Activity Type Activity Date Activity User E-Sign Co-Sign Detail Recorded Client Recorded Date Recorded By Document 02/25/21 15:00 [id number] 02/25/21 15:01 02/25/21 15:00 Wound Care Nurse 3 10. R buttock fold -Ulcer Cleansing Rinsed/ Irrigated with Saline -Foul Odor after Cleansing No -Negative Pressure Wound Therapy Continue -Setting (mmHg) 150 -Negative Pressure is Continuous -NPWT Application Charge ($) NPWT > 50 sq cm 7. L lateral LE -Ulcer Cleansing Rinsed/ Irrigated with Saline -Foul Odor after Cleansing No -Primary Dressing Applied Mepilex Border, Promogran Kita Matter -Mepilex Border 1 -Promogran Kita Matter 1 Pain Scale: 0-10 Numeric Is Patient Pain Free? Yes - Visit Discharge Discharge Condition Stable Ambulatory Status Wheelchair Transportation Private Auto Medication Reconcilliation completed & Yes provided to patient/care provider Clinical Summary of Care Provided Yes Wound debrided: Ischial ulcer Laterality: Right Type of Debridement: Excisional debridement Anesthesia Used: 5% Lidocaine Gel Depth: Down to and including healthy tissue, in the subcutaneous layer, to muscle and to bone Percentage of wound debrided: 100 Instrument Used: 7mm curette Tissue Removed: Subcutaneous tissue and slough into the muscle with bone exposure Severity: Fat Layer Exposed Amount of bleeding with debridement: Mild Bleeding Controlled with: Pressure Patient tolerated procedure: Patient tolerated procedure well Additional Wound Wound debrided: lateral leg ulcer Laterality: Left Type of Debridement: Excisional debridement Anesthesia Used: 5% Lidocaine Gel Depth: Down to and including healthy tissue and in the subcutaneous layer Percentage of wound debrided: 100 Instrument Used: 3mm curette Tissue Removed: Subcutaneous tissue and slough Severity: Fat Layer Exposed Amount of bleeding with debridement: Mild Bleeding Controlled with: Pressure Patient tolerated procedure: Patient tolerated procedure well Assessment/Plan Assessment/Plan (1) Decubitus ulcer of right perineal ischial region, stage 4: CODE(S): L89.314 - Pressure ulcer of right buttock, stage 4 (2) Osteomyelitis of pelvis: CODE(S): M86.9 - Osteomyelitis, unspecified (3) Pressure ulcer of left leg, stage 2: CODE(S): L89.892 - Pressure ulcer of other site, stage 2 PLAN: Wound care - Right ischial/perineal ulcer wound VAC at 150 mmHg three times per week. Left lateral leg ulcer Kita covered by gauze M-W-F. He is on IV Vancomycin and Cefepime and Flagyl po. His antibiotics are managed by Dr. Mccallum, ID. Operative tissue cultures positive for Proteus mirabilis, MRSA, Staphylococcus capitis, Streptococcus mitis, Corynebacterium jeikeium, Corynebacterium species and Clostridium ramosum. Operative bone cultures positive for Streptococcus mitis, Staphylococcus capitis, Corynebacterium jeikeium. He sees Dr. Mccallum later this week. He has no home health, so he is going to the infusion center for his labwork. He has a friend who changes his dressings for him. He is interested in a flap to help his ischial ulcer heal. Will discuss this with Dr. Granados. Follow up one week.
[2021-03-04 13:51] VITALS: BP 151/82; PULSE 115; RESP 20; TEMP 36.4; BMI 39.6
--- NOTE | 2021-03-04 15:14 | PCM.WC.PN ---
History of Present Illness Date of Service: 03/04/21 Chief Complaint: Ulcer on left distal lateral leg and right ischial ulcer. History of Wound: Adiel is a 34 year old male who is wheelchair bound and paraplegic. [facility] same areas he is presenting for evaluation today. He has had his current ulcers for over 2 months. He has been treating the areas with silvercell dressings and recently was placed on an antibiotic by his PCP. The left lower leg ulcers appear to be from pressure. He is unsure of how they developed. His ulcers on his sacrum and right buttock are from pressure and friction from transferring from his wheelchair to chair with his slide board. He also has an area that was from a temi-rectal abscess that is still open and draining. He reports that he is independent in his ADL's but does have a nurse that comes to care for him daily in the morning for a short time daily. He has a history of Type 2 DM, last A1C 7.0% on 12/20/2019. He has been seen at both our wound healing center and [facility] in [place] in the past for previous uclers. He has previously received Apligraf to his ulcers of his lower legs but the last application was probably 9 months ago. Surgery 02/14/21 - Excision right ischial/perineal pressure sore, Stage IV, with partial ostectomy for osteomyelitis. Operative bone culture positive for Streptococcus mitis/oralis, Staphylococcus capitis, corynebacterium jeikeium. Operative tissue culture positive for Proteus mirabilis, MRSA, Staphylococcus capitis, Streptococcus mitis/oralis, Corynebacterium jeikeium, Corynebacterium species and Clostridium ramosum. ID is managing his antibiotics of Vancomycin and Cefepime IV and Flagyl po. Wound care - Wound VAC at 150 mmHg three times per week. Wash area with soap and water at the time of VAC changes. Left lateral leg - Kita M-W-F covered by gauze. The patient denies any fever, chills, nausea, vomiting, or diarrhea. Denies any signs of infection, including increasing pain, redness, swelling, or drainage from affected area. Progress of Wound: Right ischial ulcer into the muscle and and bone exposure. Left lateral leg ulcer is stable. Objective Data Objective Data Vital Signs: Vital Signs Temp Pulse Resp BP 97.5 F L 115 H 20 H 151/82 H 03/04/21 13:51 03/04/21 13:51 03/04/21 13:51 03/04/21 13:51 Weight: 330 lb Body Mass Index (BMI) 39.6 Charges/Coding Procedures Integumentary [id number]: [id number] Mylene subq tissue 20 sq cm/< (modifier 79) Physical Exam Const alert and oriented x3 General Appearance: cooperative HEENT normocephalic Eyes PERRL Lymph Lymphatic: no lymphedema noted Resp normal respiratory effort Cardio regular rate GI non-tender Palpation: soft Extremity normal capillary refill Skin Wound Narrative: Ulcer left lateral distal leg is pink, decreasing in size. Right ischial ulcer with tunneling, bone exposure, beefy pink. Periwound is stable Neuro CN's II-XII intact bilaterally Psych Appearance: grossly normal Debridement Note Debridement Note Post-Debridement Measurements and Additional Note: Post-Debridement Measurements/Treatment - Nurse 1 - General Ulcer Assessment Start: 02/25/21 14:22 Freq: Status: Active Protocol: .LOWSTACEYT Activity Type Activity Date Activity User E-Sign Co-Sign Detail Recorded Client Recorded Date Recorded By Document 02/25/21 14:22 DL [id number] 02/25/21 14:35 DL Document 03/04/21 13:51 DL [id number] 03/04/21 14:05 DL 02/25/21 03/04/21 14:22 13:51 - Today's Visit Information Type of service Follow-up Visit Follow-up Visit (Physician/BAROMETERS CALIBRATOR (Physician/BAROMETERS CALIBRATOR ) ) Arrival Mode Ambulatory Wheelchair Transfer Assistance None None Patient Identification Verified (Name & Yes Yes ) Patient Requires Transmission-Based No No Precautions Height and Weight Body Mass Index (BMI) 39.6 39.6 BMI Classification Obese Obese Vital Signs Temperature (97.8 F-99.1 F) 97.7 F L 97.5 F L Temperature Source Temporal Temporal Pulse Rate (60-100) 118 H 115 H Pulse Location Monitor Monitor Respiratory Rate (12-18) 22 H 20 H Respiratory rate source Observation Observation Blood Pressure (90/60-120/80) 138/76 H 151/82 H Blood Pressure Mean (mm Hg) 96 105 Source Monitor Monitor History Since Last Visit- (Skip if this is Patient's initial visit) Have you changed medications since your No No last visit? Any new allergies or adverse reactions No No Had a fall/change in ADL's that may No No increase risk of falls Signs or symptoms of abuse and/or No No neglect since last visit Have you been in the hospital since your Yes No last visit? Has dressing in place as prescribed Yes Yes Has compression in place as prescribed N/A No Has offloadiing in place as prescribed Yes Yes Experienced any changes in pain level or No No management Left Footwear Regular Shoe Right Footwear Regular Shoe Pain Scale: 0-10 Numeric Is Patient Pain Free? Yes Yes WC - Nurse 1 - General Ulcer Measurement Start: 02/25/21 14:22 Freq: Status: Active Protocol: Activity Type Activity Date Activity User E-Sign Co-Sign Detail Recorded Client Recorded Date Recorded By Document 02/25/21 14:22 DL [id number] 02/25/21 14:35 DL Document 03/04/21 13:51 DL [id number] 03/04/21 14:05 DL 02/25/21 03/04/21 14:22 13:51 Wound Center Nurse 1 10. R buttock fold -Combined with other wound No -Current Size (cm) - Length 10.4 10 -Current Size (cm) - Width 2 7 -Current Size (cm) - Depth 5.2 7.5 -Total Square Cm 20.8 70 -Photo Taken No No -Exudate Amt Medium Large -Exudate Type Serosanguineous Serosanguineous -Wound Margin Distinct, Distinct, Outline Outline Attached Attached -Granulation Amt Large (67-100%) Large (67-100%) -Granulation Quality Red Red -Necrosis Amt Small (1-33%) Small (1-33%) -Necrotic Tissue Type Adherent Slough Adherent Slough -Structure Exposed N/A N/A -Texture (Temi-wound Skin Appearance) Scarring Scarring -Moisture (Temi-wound Skin Appearance) No Abnormality Assessed -Color (Temi-wound Skin Appearance) Ecchymosis, Rubor Rubor -Temperature (Temi-wound Skin No Abnormality Appearance) (Pt Warm) -Tenderness on Palpation (Temi-wound No Skin Appearance) -Ulcer Cleansing Wound Cleanser Wound Cleanser -Foul Odor after Cleansing No No -Anesthetic Used 4% Lidocaine 4% Lidocaine Solution Solution 7. L lateral LE -Combined with other wound No -Current Size (cm) - Length 1.5 1.0 -Current Size (cm) - Width 0.5 0.6 -Current Size (cm) - Depth 0.2 0.2 -Total Square Cm 0.75 0.60 -Photo Taken No No -Epithelialization Small 1-33% -Tunneling No -Undermining/Tunneling No -Circular Undermining No -Exudate Amt Small Small -Exudate Type Serosanguineous -Wound Margin Distinct, Flat & Intact Outline Attached -Granulation Amt Medium (34-66%) Large (67-100%) -Granulation Quality [place] Red -Slough/Fibrin Yes -Necrosis Amt Small (1-33%) Small (1-33%) -Necrotic Tissue Type Eschar Adherent Slough -Structure Exposed N/A N/A -Texture (Temi-wound Skin Appearance) Rash Assessed -Moisture (Temi-wound Skin Appearance) No Abnormality Assessed, Maceration -Color (Temi-wound Skin Appearance) Hemosiderin Assessed Staining -Temperature (Temi-wound Skin No Abnormality No Abnormality Appearance) (Pt Warm) (Pt Warm) -Tenderness on Palpation (Temi-wound No No Skin Appearance) -Ulcer Cleansing Wound Cleanser Rinsed/ Irrigated with Saline -Foul Odor after Cleansing Yes, Due to No Product Use -Anesthetic Used 4% Lidocaine 4% Lidocaine Solution Solution Lower Limb Edema Present NA WC - Nurse 2 - General Ulcer CM Notes Start: 02/25/21 14:22 Freq: Status: Active Protocol: Activity Type Activity Date Activity User E-Sign Co-Sign Detail Recorded Client Recorded Date Recorded By Document 02/25/21 14:46 [id number] 02/25/21 14:54 Document 03/04/21 14:13 [id number] 03/04/21 14:20 02/25/21 03/04/21 14:46 14:13 Wound Center Nurse 2 10. R buttock fold -Time 14:46 14:13 -Correct Patient Yes Yes -Correct Side, Site, Position Yes Yes -Correct Procedure Yes Yes -Procedure Performed Yes Yes -Type of Procedure Debridement Debridement -Clinical Debridement Muscle / Fascia Muscle / Fascia -Tissue Removed Muscle,Fascia Muscle -Post Debridement (cm) - Length 9.3 11.5 -Post Debridement (cm) - Width 4 8 -Post Debridement (cm) - Depth 9.5 7.5 -Total Square (Post) (cm) 37.2 92.0 -Area of Debridement (cm) - Length 4 11.5 -Area of Debridement (cm) - Width 9.5 8 -Total Square (Area) (cm) 38.0 92.0 -Tunneling No No -Undermining/Tunneling No Yes -Undermining/Tunneling Starts (O'clock 12 ) -Undermining/Tunneling Ends (O'clock) 1 -Maximum Distance (cm) 9 -Circular Undermining No No -Wound/Ulcer Outcome Not Healed Not Healed -Ulcer Cleansing Rinsed/ Rinsed/ Irrigated with Irrigated with Saline Saline -Foul Odor after Cleansing No No -Bioengineered Tissue No No -Bleeding Controlled with Pressure Pressure -Offloading No No -Treatment Response Procedure Procedure Not Tolerated Well Tolerated Well -Debridement - Muscle / Fascia, 1st Yes Yes 20sq cm -Debridement, Muscle/Fascia, ea addt'l 1 4 20sq cm or part thereof 7. L lateral LE -Time 14:51 14:14 -Correct Patient Yes Yes -Correct Side, Site, Position Yes Yes -Correct Procedure Yes Yes -Procedure Performed Yes Yes -Type of Procedure Debridement Debridement -Clinical Debridement Subcutaneous Subcutaneous -Tissue Removed Subcutaneous Subcutaneous -Post Debridement (cm) - Length 2.5 1.5 -Post Debridement (cm) - Width 0.5 1 -Post Debridement (cm) - Depth 0.2 0.2 -Total Square (Post) (cm) 1.25 1.5 -Area of Debridement (cm) - Length 2.5 1.5 -Area of Debridement (cm) - Width 0.5 1 -Total Square (Area) (cm) 1.25 1.5 -Tunneling No No -Undermining/Tunneling No No -Circular Undermining No No -Wound/Ulcer Outcome Not Healed Not Healed -Ulcer Cleansing Rinsed/ Rinsed/ Irrigated with Irrigated with Saline Saline -Foul Odor after Cleansing No No -Bioengineered Tissue No No -Bleeding Controlled with Pressure Pressure -Offloading No No -Treatment Response Procedure Procedure Tolerated Well Tolerated Well -Debridement - Subq, 1st 20sq cm Yes Yes Pain Scale: 0-10 Numeric Is Patient Pain Free? Yes Yes WC - Nurse 3 - General Ulcer D/C NN Start: 02/25/21 14:22 Freq: Status: Active Protocol: Activity Type Activity Date Activity User E-Sign Co-Sign Detail Recorded Client Recorded Date Recorded By Document 02/25/21 15:00 CHARLI [id number] 02/25/21 15:01 CHARLI 02/25/21 15:00 Wound Care Nurse 3 10. R buttock fold -Ulcer Cleansing Rinsed/ Irrigated with Saline -Foul Odor after Cleansing No -Negative Pressure Wound Therapy Continue -Setting (mmHg) 150 -Negative Pressure is Continuous -NPWT Application Charge ($) NPWT > 50 sq cm 7. L lateral LE -Ulcer Cleansing Rinsed/ Irrigated with Saline -Foul Odor after Cleansing No -Primary Dressing Applied Mepilex Border, Promogran Kita Matter -Mepilex Border 1 -Promogran Kita Matter 1 Pain Scale: 0-10 Numeric Is Patient Pain Free? Yes WC - Visit Discharge Discharge Condition Stable Ambulatory Status Wheelchair Transportation Private Auto Medication Reconcilliation completed & Yes provided to patient/care provider Clinical Summary of Care Provided Yes Wound debrided: Lateral distal leg ulcer Laterality: Left Type of Debridement: Excisional debridement Anesthesia Used: 5% Lidocaine Gel Depth: Down to and including healthy tissue and in the subcutaneous layer Percentage of wound debrided: 100 Instrument Used: 3mm curette Tissue Removed: Subcutaneous tissue and slough Severity: Fat Layer Exposed Amount of bleeding with debridement: Mild Bleeding Controlled with: Pressure and Compression and gauze Patient tolerated procedure: Patient tolerated procedure well Additional Wound Wound debrided: Ischial ulcer Laterality: Right Wound Grade/Stage: Stage IV Type of Debridement: Excisional debridement Anesthesia Used: 4% Lidocaine Solution Depth: Down to and including healthy tissue, in the subcutaneous layer and to muscle Percentage of wound debrided: 100 Instrument Used: 7mm curette Tissue Removed: Subcutaneous tissue and slough into the muscle with bone exposure Severity: Fat Layer Exposed Amount of bleeding with debridement: Mild Bleeding Controlled with: Pressure Patient tolerated procedure: Patient tolerated procedure well Assessment/Plan Assessment/Plan (1) Decubitus ulcer of right perineal ischial region, stage 4: CODE(S): L89.314 - Pressure ulcer of right buttock, stage 4 (2) Osteomyelitis of pelvis: CODE(S): M86.9 - Osteomyelitis, unspecified (3) Pressure ulcer of left leg, stage 2: CODE(S): L89.892 - Pressure ulcer of other site, stage 2 PLAN: Wound care - Right ischial/perineal ulcer wound VAC at 150 mmHg three times per week. Left lateral leg ulcer Kita covered by gauze . He is on IV Vancomycin and Cefepime and Flagyl po. His antibiotics are managed by Dr. Mccallum, ID. Operative tissue cultures positive for Proteus mirabilis, MRSA, Staphylococcus capitis, Streptococcus mitis, Corynebacterium jeikeium, Corynebacterium species and Clostridium ramosum. Operative bone cultures positive for Streptococcus mitis, Staphylococcus capitis, Corynebacterium jeikeium. He has no home health, so he is going to the infusion center for his labwork. He has a friend who changes his dressings for him. He is interested in a flap to help his ischial ulcer heal in the future. Follow up two weeks.
== END 2021-03-19 23:59 ==
LOC: WC 13:45
PROVIDERS: Family Provider Internal Medicine; PCP Internal Medicine; Referring Provider Nurse Practitioner Family; Visit Provider Nurse Practitioner Family
DX: L89.314 Pressure ulcer of right buttock, stage 4 (principal); L89.892 Pressure ulcer of other site, stage 2; E11.622 Type 2 diabetes mellitus with other skin ulcer; L97.922 Non-pressure chronic ulcer of unspecified part of left lower leg with fat layer exposed; K61.1 Rectal abscess; G82.20 Paraplegia, unspecified; Z99.3 Dependence on wheelchair; E66.9 Obesity, unspecified; Z68.39 Body mass index [BMI] 39.0-39.9, adult
CPT/HCPCS: 11042; 11043; 11046; 97606; 99213; G0463

== ENCOUNTER → 2021-03-04 15:12 | Outpatient (CLI) | payer MEDICARE, SELFPAY ==
[2021-02-25 14:22] VITALS: BMI 39.6
[2021-03-04 13:51] VITALS: BMI 39.6
[2021-03-04 16:16] LABS: Hematocrit 38.9 % (40-54); Hemoglobin 12.6 g/dL (13.0-16.5); Mean Corp Hgb Conc 32.4 g/dL (32-36); Mean Corpuscular Hgb 27.9 pg (27.0-32.0); Mean Corpuscular Volume 86.3 fL (80-94); Mean Platelet Vol. 10.7 fl (6.2-12.0); Platelet Count 324 K/mm3 (150-450); RBC Distribution Width CV 14.4 % (11.6-14.6); Red Blood Count 4.51 M/mm3 (4.6-6.2); White Blood Count 15.1 K/mm3 (4.4-11.0)
[2021-03-04 16:22] LABS: Erythrocyte Sedimentation Rate 79 mm/hr (0-20)
[2021-03-04 16:27] LABS: Anion Gap 3 (5-15); BUN 11 mg/dL (7-18); BUN/Creat Ratio 36.1 RATIO (10-20); Calcium,Total 8.9 mg/dL (8.5-10.1); Chloride 102 mmol/L (98-107); EST Glomerular Filtration Rate 350 mL/min (>60); Est Glom Filt Rate - Afr Amer 424 mL/min (>60); Glucose 125 mg/dL (74-106); Potassium 3.9 mmol/L (3.5-5.1); Sodium Level 135 mmol/L (136-145)
[2021-03-04 16:56] LABS: Vancomycin, Trough Level 11.9 ug/mL (5.0-15.0)
== END ==
PROVIDERS: PCP Internal Medicine; Referring Provider Internal Medicine Infectious Disease; Visit Provider Internal Medicine Infectious Disease
DX: M46.28 Osteomyelitis of vertebra, sacral and sacrococcygeal region (principal)
CPT/HCPCS: 11042; 11043; 11046; 36415; 80048; 80202; 85027; 85652; 97606; A4216

== ENCOUNTER → 2021-03-11 14:56 | Outpatient (CLI) | payer MEDICARE, SELFPAY ==
[2021-03-04 13:51] VITALS: BMI 39.6
[2021-03-11 15:48] LABS: Hematocrit 39.5 % (40-54); Hemoglobin 12.9 g/dL (13.0-16.5); Mean Corp Hgb Conc 32.7 g/dL (32-36); Mean Corpuscular Hgb 27.8 pg (27.0-32.0); Mean Corpuscular Volume 85.1 fL (80-94); Mean Platelet Vol. 10.4 fl (6.2-12.0); Platelet Count 230 K/mm3 (150-450); RBC Distribution Width CV 14.6 % (11.6-14.6); RBC Distribution Width SD 45.5 fl (35.1-43.9); Red Blood Count 4.64 M/mm3 (4.6-6.2); White Blood Count 6.6 K/mm3 (4.4-11.0)
[2021-03-11 15:57] LABS: Erythrocyte Sedimentation Rate 80 mm/hr (0-20)
[2021-03-11 16:09] LABS: Anion Gap 5 (5-15); BUN 7 mg/dL (7-18); Calcium,Total 8.6 mg/dL (8.5-10.1); Chloride 103 mmol/L (98-107); Creatinine, Serum 0.29 mg/dL (0.70-1.30); EST Glomerular Filtration Rate 368 mL/min (>60); Est Glom Filt Rate - Afr Amer 446 mL/min (>60); Glucose 120 mg/dL (74-106); Potassium 3.9 mmol/L (3.5-5.1); Sodium Level 135 mmol/L (136-145)
[2021-03-11 16:16] LABS: Vancomycin, Trough Level 14.8 ug/mL (5.0-15.0)
== END ==
PROVIDERS: PCP Internal Medicine; Referring Provider Internal Medicine Infectious Disease; Visit Provider Internal Medicine Infectious Disease
DX: M46.28 Osteomyelitis of vertebra, sacral and sacrococcygeal region (principal)
CPT/HCPCS: 36415; 80048; 80202; 85027; 85652; A4216

== ENCOUNTER 2021-03-13 00:06 | Observation (INO) | payer MEDICARE, SELFPAY ==
[2021-03-13] VITALS (17 sets, daily range): BP systolic 113–144; BP diastolic 62–89; PULSE 93–125; RESP 16–32; TEMP 36.8–38.5; O2SAT 96–100; BMI 41.5; BMI 40.1
--- NOTE | 2021-03-13 00:51 | RAD_ITS ---
STUDY: X-RAY CHEST REASON FOR EXAM: Male, 35 years old. fever, ?pneumonia TECHNIQUE: Single AP portable view of the chest. COMPARISON: 09/28/2019. FINDINGS: The lungs are clear and expanded. There is no demonstrated pleural abnormality. Normal size heart. Normal mediastinum and sean. Normal visualized pulmonary arteries. Normal visualized aortic arch and descending thoracic aorta. Normal visualized thoracic spine. There is degenerative osteoarthritis of the bilateral shoulders. There is no demonstrated abnormality of the visualized soft tissue structures of the upper abdomen. RAD/Chest 1 View (Portable) IMPRESSION: No acute cardiopulmonary disease. Electronically Signed: Gwen Ashley MD at 1:45 EDT , Service support ,
--- NOTE | 2021-03-13 00:53 | EX.ED.DYSGE1 ---
HPI History of Present Illness Chief Complaint: Fever Narrative Narrative: Patient presents with a fever for the last day or so. 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 He has been paralyzed from the waist down for 10 years. He does do self cath. His urine has been darker recently but not malodorous. He also has a history of recent infections with MRSA sepsis and sacral decubitus. He had surgery for this. He still has a wound VAC on this. He states the drainage from the wound VAC really has not changed dramatically. He denies coughing or trouble breathing. He cannot think of any other source of his infection. He currently has a PICC line in place and is getting cefepime, Flagyl and vancomycin through this. No known exposure to Covid. Nothing makes symptoms better or worse. He is able to eat and drink but his appetite is down. [facility] Medical History (Updated 03/13/21 @ 05:[address] 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 Personal history of Methicillin resistant Staphylococcus aureus infection Pressure sore of left ischium, stage 4 Recurrent infections Right ischial pressure sore, stage 4 Sleep apnea Smoker Smoker Type 2 diabetes mellitus Urinary incontinence, nocturnal enuresis UTI (urinary tract infection) Home Medications nutritional supplements 1 ea PO BID 02/12/21 [History Last Taken Unknown] psyllium 1 packet PO DAILY 02/12/21 [History Last Taken Unknown] cefepime 2 g IV Q8H 37 Days #111 vial 02/18/21 [Rx Last Taken Unknown] metronidazole [Flagyl] 500 mg PO TID #111 tab 02/18/21 [Rx Last Taken Unknown] vancomycin in 0.9 % sodium chl 1.75 g IV Q8H 37 Days #111 bag 02/18/21 [Rx Last Taken Unknown] Allergy/AdvReac Type Severity Reaction Status Date / Time amoxicillin AdvReac Diarrhea Verified 03/13/21 00:16 Family History (Updated 03/13/21 @ 04:[address] Yanni Suarez MD) Father Hypertension Mother Hypertension Surgical History (Updated 03/13/21 @ 04:[address] Yanni Suarez MD) Hx of tonsillectomy Status post repair of complex wound Social History (Updated 03/13/21 @ 04:[address] Yanni Suarez MD) household members: spouse Smoking Status: Current every day smoker tobacco type: cigarettes Tobacco: How many years used: 19 alcohol intake: never substance use type: does not use what type of physical activity do you participate in: none ROS ROS ED Constitutional Constitutional ED: Reports chills and fever(s); Denies sweats Eyes Eyes: Denies blurry vision ENT ENT ED: Denies rhinorrhea or sore throat Cardiovascular Cardiovascular: Denies chest pain or palpitations Respiratory/Chest Respiratory/Chest: Denies cough, dyspnea, dyspnea on exertion or sputum Gastrointestinal Gastrointestinal: Denies abdominal pain, nausea or vomiting Genitourinary Genitourinary ED: Reports other Details: Urine is darker than normal. He does self cath. ; Denies dysuria Musculoskeletal Musculoskeletal: Reports myalgias Integumentary Denies rash Neurologic Neurologic: Denies headache(s) Psychiatric Psychiatric: Denies depression Endocrine Endocrinology: Denies polydipsia or polyuria Allergic/Immunologic Allergic/Immunologic ED: Denies urticaria EXAM Physical Exam Const Vital Signs: 03/13/21 00:08 03/13/21 00:17 03/13/21 01:58 Temperature 99.2 F H 101.3 F H Temperature Source Oral Oral Pulse Rate 115 H 125 H Respiratory Rate 18 20 H Respiratory Pattern Normal Blood Pressure 137/89 H 136/69 H Blood Pressure Mean 105 91 Pulse Ox 100 97 Oxygen Delivery Method Room Air Room Air 03/13/21 02:23 03/13/21 03:14 03/13/21 04:42 Temperature 101.3 F H Temperature Source Oral Pulse Rate 116 H 125 H 112 H Respiratory Rate 32 H 25 H 25 H Respiratory Pattern Blood Pressure 130/69 H 113/76 Blood Pressure Mean 89 88 Pulse Ox 100 98 96 Oxygen Delivery Method Room Air Room Air Room Air Positive well nourished and well developed General Appearance ED: well developed and NAD HEENT Reports moist mucous membranes Eyes General Eye ED: Negative for pale conjunctiva or scleral icterus Neck no JVD Chest Wall inspection of chest normal Resp normal respiratory effort and clear to auscultation bilaterally Cardio regular rhythm Rate: tachycardic GI normal to inspection, nondistended, normoactive bowel sounds and non-tender Palpation: soft Back/Spine no CVA tenderness Neuro oriented x3 Sensorium / Orientation: alert Psych mental status grossly normal Skin no rashes or lesions noted MDM MDM MDM Narrative Medical decision making narrative: Patient's electrolytes show no marked abnormalities. Calcium is slightly low. Lactate is normal. His white count is actually low at 1.2. Is a new to 5. Urinalysis is negative. Rapid Covid is negative. With the patient's complex history, recent infections, PICC line in place, on antibiotics and still having a fever, he will be brought into the hospital for further observation. We will hold further antibiotics at this time. Lab Data Attestation: I reviewed the patient's lab results. Labs: Laboratory Results - last 24 hr 03/13/21 03/13/21 03/13/21 02:59 02:59 02:59 WBC 1.2 L* RBC 4.49 L Hgb 12.4 L Hct 38.7 L MCV 86.2 MCH 27.6 MCHC 32.0 RDW Std Deviation 46.9 H RDW Coeff of Darrell 14.7 H Plt Count 191 MPV 10.6 Immature Gran % (Auto) 0.800 Neut % (Auto) 42.7 L Lymph % (Auto) 27.0 [place] % (Auto) 25.4 H Eos % (Auto) 3.3 Baso % (Auto) 0.8 Absolute Neuts (auto) 0.5 L Absolute Lymphs (auto) 0.33 L Nucleated RBC % 0 Differential Comment SCANNED Diff Path Review May foll Sodium 133 L Potassium 4.1 Chloride 100 Carbon Dioxide 25.0 Anion Gap 8 BUN 12 Creatinine 0.42 L Estim Creat Clear Calc 256.48 Est GFR (MDRD) Af Amer 297 Est GFR (MDRD) Non-Af 245 BUN/Creatinine Ratio 28.9 H Glucose 166 H Lactic Acid 1.4 Calcium 8.3 L Total Bilirubin 0.50 AST 18 ALT 38 Alkaline Phosphatase 103 Total Protein 7.2 Albumin 3.0 L Globulin 4.2 Albumin/Globulin Ratio 0.7 L Urine Color Urine Clarity Urine pH Ur Specific [place] Urine Protein Urine Glucose (UA) Urine Ketones Urine Occult Blood Urine Nitrite Urine Bilirubin Urine Urobilinogen Ur Leukocyte Esterase Urine RBC Urine WBC Ur Squamous Epith Cells Urine Bacteria Urine Mucus 08/25/21 03:15 WBC RBC Hgb Hct MCV MCH MCHC RDW Std Deviation RDW Coeff of Darrell Plt Count MPV Immature Gran % (Auto) Neut % (Auto) Lymph % (Auto) [place] % (Auto) Eos % (Auto) Baso % (Auto) Absolute Neuts (auto) Absolute Lymphs (auto) Nucleated RBC % Differential Comment Diff Path Review Sodium Potassium Chloride Carbon Dioxide Anion Gap BUN Creatinine Estim Creat Clear Calc Est GFR (MDRD) Af Amer Est GFR (MDRD) Non-Af BUN/Creatinine Ratio Glucose Lactic Acid Calcium Total Bilirubin AST ALT Alkaline Phosphatase Total Protein Albumin Globulin Albumin/Globulin Ratio Urine Color Yellow Urine Clarity Clear Urine pH 5.0 Ur Specific [place] 1.020 Urine Protein 15 H Urine Glucose (UA) Normal Urine Ketones 5 H Urine Occult Blood 50 H Urine Nitrite Negative Urine Bilirubin Negative Urine Urobilinogen Normal Ur Leukocyte Esterase 100 H Urine RBC 0-5 SEEN Urine WBC 0-5 SEEN Ur Squamous Epith Cells 0 SEEN Urine Bacteria 1+ Urine Mucus 0 SEEN Radiography Diagnostic Testing: Radiology Impression Chest X-Ray 03/13/21 00:51 IMPRESSION: No acute cardiopulmonary disease. Electronically Signed: Gwen Ashley MD at 1:45 EDT , Service support , Discharge Plan Dx/Rx/DC Orders Clinical Impression: Fever, Leukopenia, Sepsis Disposition Disposition: Acute Care [facility]
[2021-03-13] MEDS: Alteplase 2 MG/2 ML Vial 4 MG IV (01:11)
--- NOTE | 2021-03-13 01:46 | ED.RN ---
this RN went into the room at this time to access cathflo, no blood return noted at this time. patient noted to have minor fluid return. well recess at the 1 hr marcy
[2021-03-13] MEDS: Acetaminophen 500 MG Tablet 1000 MG PO (02:03)
--- NOTE | 2021-03-13 02:22 | ED.RN ---
picc line attempted to pull back blood at this time. no success noted. will follow up again in 30 mins
[2021-03-13] MEDS: 0.9% Normal Saline 1,000 ML 1000 ML IV (03:07)
--- NOTE | 2021-03-13 03:20 | ED.RN ---
patient picc line checked again at the 120 min bench marcy. no blood return noted but flushes better at this time. fluid bolus started at this time
[2021-03-13 03:22] LABS: Mucous, Urine 0 SEEN /hpf (<or=2+); Squamous Epithelial Cells - UA 0 SEEN /hpf (0-5)
[2021-03-13 03:23] LABS: Color, Urine Yellow (Yellow); Glucose, Dipstick Normal (Normal); Ketone-Dipstick 5 mg/dl (Negative); Leukocyte Esterase-Dipstick 100 /ul (Negative); Nitrite-Dipstick Negative (Negative); Occult Blood-Urine 50 /ul (Negative); Protein-Dipstick 15 mg/dl (Negative); Urine Bilirubin Dipstick Negative (Negative); Urine Clarity Clear (Clear); Urine Urobilinogen Normal (Normal)
[2021-03-13 03:30] LABS: ALB/GLOB Ratio 0.7 RATIO (0.9-2.4); AST(SGOT) 18 U/L (15-37); Alanine Aminotransfer ALT/SGPT 38 U/L (16-61); Alkaline Phosphatase 103 U/L (45-117); Anion Gap 8 (5-15); BUN 12 mg/dL (7-18); BUN/Creat Ratio 28.9 RATIO (10-20); Calcium,Total 8.3 mg/dL (8.5-10.1); Chloride 100 mmol/L (98-107); Creatinine, Serum 0.42 mg/dL (0.70-1.30); EST Glomerular Filtration Rate 245 mL/min (>60); Est Glom Filt Rate - Afr Amer 297 mL/min (>60); Estimated Creatinine Clearance 256.48 ml/min; Globulin 4.2 g/dL (2.2-4.2); Glucose 166 mg/dL (74-106); Potassium 4.1 mmol/L (3.5-5.1); Protein, Total 7.2 g/dL (6.4-8.2); Sodium Level 133 mmol/L (136-145)
[2021-03-13 03:32] LABS: Bacteria 1+ /hpf (None Seen); Red Blood Cells-Urine 0-5 SEEN /hpf (0-5); White Blood Cells 0-5 SEEN /hpf (0-5)
[2021-03-13 04:00] LABS: Absolute Lymphocyte Count 0.33 X10^3/uL (0.83-4.51); Absolute Neutrophil Count 0.5 X10^3/uL (2.0-7.7); Basophil# 0.01 X10^3/uL; Basophil% 0.8 % (0-1); Eosinophil# 0.04 X10^3/uL; Eosinophils% 3.3 % (0-5); Hematocrit 38.7 % (40-54); Hemoglobin 12.4 g/dL (13.0-16.5); Lymphocyte # 0.33 X10^3/ul (0.83-4.51); Mean Corpuscular Hgb 27.6 pg (27.0-32.0); Mean Corpuscular Volume 86.2 fL (80-94); Mean Platelet Vol. 10.6 fl (6.2-12.0); Monocyte# 0.31 X10^3/uL; Monocyte% 25.4 % (0-10); NRBC Flagged by Analyzer 0 % (0-5); Neutrophil # 0.52 X10^3/uL (2.7-7.7); Neutrophil % 42.7 % (47-70); POSITIVE COUNT YES; POSITIVE DIFFERENTIAL YES; Platelet Count 191 K/mm3 (150-450); RBC Distribution Width CV 14.7 % (11.6-14.6); RBC Distribution Width SD 46.9 fl (35.1-43.9); Red Blood Count 4.49 M/mm3 (4.6-6.2)
[2021-03-13 04:04] LABS: Differential Indicated SCAN CRITERIA MET; White Blood Count 1.2 K/mm3 (4.4-11.0)
--- NOTE | 2021-03-13 04:18 | PCM.HP.STD ---
HPI - General General Date of Admission: 03/13/21 Date of Service: 03/13/21 Chief Complaint: Fever, Unclear Etiology HPI Narrative The patient is a 35 y/o M w/ PMHx: Chronic anemia, EDWIGE on BIPAP q HS, Hx Cavernous Hemangioma T& level 10/2009 w/ paraplegia secondary to spinal lesion complicated by chronic wounds and urinary retention requiring chronic self-catheterization ~ 6x daily, Chronic R Ischial Pressure Ulceration Stage IV with associated Osteomyelitis, HTN, HLD, Obesity, Diabetes mellitus type II, Tobacco use, recent discharge 02/18/21 s/p excision of right ischial pressure sore with partial ostectomy for osteomyelitis 02/14/[address] Granados with VAC placement treated with IV vanc, cefepime and oral flagyl with planned ongoing abx therapy until stop date per ID 03/28/21 who now re-presents to the [facility] ED on 03/13/21 with history of poor oral intake over the last 24 to 48 hours with onset of frontal throbbing headaches and fever starting at 7:30 PM the day prior to current presentation with no reported chills, nausea, emesis, abdominal pain or cramping, alteration sense of taste or smell, sore throat, cough, dyspnea, foul-smelling urine. Patient does report that his urine has appeared more dark than usual but was not turbid or foul-smelling. He is not COVID vaccinated. He recently did see wound care and had VAC dressing changed with report of continued improved appearance with only noted serosanguineous drainage. In the ED PICC line is able to be flushed but not drawn off of despite attempted alteplase Cathflo usage. Work-up in the ED included T 101.3, heart rate 125, BP 136/69, respiratory rate 20, 97% on room air, CBC with WBC 1.2, hemoglobin 12.4, platelet 191 with leukopenia, neutropenia and lymphopenia, CMP with sodium 133, BUN/creatinine 12/0.42, glucose 166, unremarkable hepatic profile, lactic acid pending upon evaluation of patient, urinalysis with specific gravity 1.020, protein 15, ketone 5, occult blood 50, negative nitrite, no marked urine RBC or WBC, urine bacteria 1+, urine culture pending per ED, blood culture x2 peripherally obtained per ED, unable to obtain culture from PICC line, chest x-ray with no acute cardiopulmonary findings, rapid SARS Covid antigen negative. In the ED patient ministered Tylenol, 1 L normal saline bolus as well as alteplase Cathflo. 02/14/2021 rapid SARS Covid antigen negative. [facility] Medical History (Updated 03/13/21 @ 04:[address] 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 Personal history of Methicillin resistant Staphylococcus aureus infection Pressure sore of left ischium, stage 4 Recurrent infections Right ischial pressure sore, stage 4 Sleep apnea Smoker Smoker Type 2 diabetes mellitus Urinary incontinence, nocturnal enuresis UTI (urinary tract infection) Home Medications nutritional supplements 1 ea PO BID 02/12/21 [History Last Taken Unknown] psyllium 1 packet PO DAILY 02/12/21 [History Last Taken Unknown] cefepime 2 g IV Q8H 37 Days #111 vial 02/18/21 [Rx Last Taken Unknown] metronidazole [Flagyl] 500 mg PO TID #111 tab 02/18/21 [Rx Last Taken Unknown] vancomycin in 0.9 % sodium chl 1.75 g IV Q8H 37 Days #111 bag 02/18/21 [Rx Last Taken Unknown] Allergy/AdvReac Type Severity Reaction Status Date / Time amoxicillin AdvReac Diarrhea Verified 03/13/21 00:16 Family History (Updated 03/13/21 @ 04:[address] Yanni Suarez MD) Father Hypertension Mother Hypertension Surgical History (Updated 03/13/21 @ 04:[address] Yanni Suarez MD) Hx of tonsillectomy Status post repair of complex wound Social History (Updated 03/13/21 @ 04:[address] Yanni Suarez MD) household members: spouse Smoking Status: Current every day smoker tobacco type: cigarettes Tobacco: How many years used: 19 alcohol intake: never substance use type: does not use what type of physical activity do you participate in: none ROS ROS Narrative Admission Review of Systems: CONSTITUTIONAL: No weight loss, chills, + fever, weakness or fatigue. HEENT: + headache. Eyes: No visual loss, blurred vision, double vision or yellow sclerae. Ears, Nose, Throat: No hearing loss, sneezing, congestion, runny nose or sore throat. SKIN: + Chronic wounds, wound VAC in place, unchanged serosanguinous drainage. CARDIOVASCULAR: No chest pain, chest pressure or chest discomfort, palpitations, edema, orthopnea, syncopal events. RESPIRATORY: No shortness of breath, cough or sputum, wheezing, hemoptysis. GASTROINTESTINAL: + anorexia, No nausea, vomiting or diarrhea, abdominal pain, melena, BRBPR. GENITOURINARY: No dysuria, frequency, urgency or retention. NEUROLOGICAL: + headache, chronic paraplegia, No dizziness, syncope, ataxia, change in bowel or bladder control, seizure. MUSCULOSKELETAL: No muscle, back pain, joint pain or stiffness. HEMATOLOGIC: No anemia, bleeding or bruising. LYMPHATICS: No enlarged nodes. No history of splenectomy. PSYCHIATRIC: No history of depression or anxiety. ENDOCRINOLOGIC: No reports of sweating, cold or heat intolerance. No polyuria or polydipsia. ALLERGIES: No history of asthma, hives, eczema or rhinitis. Vital Signs Vital Signs Vital Signs: 03/13/21 00:08 03/13/21 00:17 03/13/21 01:58 Temperature 99.2 F H 101.3 F H Temperature Source Oral Oral Pulse Rate 115 H 125 H Respiratory Rate 18 20 H Respiratory Pattern Normal Blood Pressure 137/89 H 136/69 H Blood Pressure Mean 105 91 Pulse Ox 100 97 Oxygen Delivery Method Room Air Room Air 03/13/21 02:23 03/13/21 03:14 Temperature 101.3 F H Temperature Source Oral Pulse Rate 116 H 125 H Respiratory Rate 32 H 25 H Respiratory Pattern Blood Pressure 130/69 H 113/76 Blood Pressure Mean 89 88 Pulse Ox 100 98 Oxygen Delivery Method Room Air Room Air Weight Weight: 297 lb 9.985 oz Body Mass Index (BMI) 41.5 Physical Exam Narrative Physical Examination: General: awake, alert, oriented x 3 and cooperative, seated upright in the ED bed in no apparent distress. Skin: Mildly flushed color, normal turgor, no icterus, no cyanosis except right ischial/perineal area with ~12 x 8 x 7 cm noted from most recent operative note, VAC with only serosanguineous drainage noted, chronic left lower extremity stage II pressure ulcer, chronic lateral distal leg ulcer. HEENT: AT/NC, EOMI, PERRLA, dry MM, no carotid bruits or JVD noted; however, thickened neck makes examination difficult. Lungs: Distant breath sounds likely secondary to habitus, moderate effort, moderate decrease BL bases, no rales, ronchi or wheezing. Heart: Tachycardic with regular rhythm; no gallop, rub audible. Abdomen: soft, morbidly obese, NTTP despite abdominal pain complaints, ND, normal BS, unable to discern HSM secondary to morbidly obese habitus. Extremities: no cyanosis, clubbing, see skinl, VAC output serosanguinous appearing. Neurological: patient awake, alert, oriented x 3; cognitive function appears baseline intact; pupils equally reactive to light and accomodation; cranial nerves II-XII grossly normal, paraplegic with a history of a T7 lesion, strength especially given acute presentation and underlying comorbidities with severe global decrease. Psychiatric: affect appears fatigued, no acute evidence of depressive or anxiety feelings. Results Lab / Micro Data Result Diagrams: 03/13/21 02:59 03/13/21 02:59 Labs: Laboratory Results - last 24 hr 03/13/21 02:59: Sodium 133 L, Potassium 4.1, Chloride 100, Carbon Dioxide 25.0, Anion Gap 8, BUN 12, Creatinine 0.42 L, Estim Creat Clear Calc 256.48, Est GFR (MDRD) Af Amer 297, Est GFR (MDRD) Non-Af 245, BUN/Creatinine Ratio 28.9 H, Glucose 166 H, Calcium 8.3 L, Total Bilirubin 0.50, AST 18, ALT 38, Alkaline Phosphatase 103, Total Protein 7.2, Albumin 3.0 L, Globulin 4.2, Albumin/Globulin Ratio 0.7 L 03/13/21 02:59: WBC 1.2 L*, RBC 4.49 L, Hgb 12.4 L, Hct 38.7 L, MCV 86.2, MCH 27.6, MCHC 32.0, RDW Std Deviation 46.9 H, RDW Coeff of Darrell 14.7 H, Plt Count 191, MPV 10.6, Immature Gran % (Auto) 0.800, Neut % (Auto) 42.7 L, Lymph % (Auto) 27.0, [place] % (Auto) 25.4 H, Eos % (Auto) 3.3, Baso % (Auto) 0.8, Absolute Neuts (auto) 0.5 L, Absolute Lymphs (auto) 0.33 L, Nucleated RBC % 0 03/13/21 03:15: Urine Color Yellow, Urine Clarity Clear, Urine pH 5.0, Ur Specific [place] 1.020, Urine Protein 15 H, Urine Glucose (UA) Normal, Urine Ketones 5 H, Urine Occult Blood 50 H, Urine Nitrite Negative, Urine Bilirubin Negative, Urine Urobilinogen Normal, Ur Leukocyte Esterase 100 H, Urine RBC 0-5 SEEN, Urine WBC 0-5 SEEN, Ur Squamous Epith Cells 0 SEEN, Urine Bacteria 1+, Urine Mucus 0 SEEN Micro: Microbiology 03/13/21 03:15 Mucosa - Nose SARS-CoV-2 Antigen (Rapid) - Final Radiology Impression Chest X-Ray 03/13/21 00:51 IMPRESSION: No acute cardiopulmonary disease. Electronically Signed: Gwen Ashley MD at 1:45 EDT , Service support , Assessment & Plan Assessment/Plan (1) SIRS (systemic inflammatory response syndrome): PLAN: The patient is a 35 y/o M w/ PMHx: Chronic anemia, EDWIGE on BIPAP q HS, Hx Cavernous Hemangioma T& level 10/2009 w/ paraplegia secondary to spinal lesion complicated by chronic wounds and urinary retention requiring chronic self-catheterization ~ 6x daily, Chronic R Ischial Pressure Ulceration Stage IV with associated Osteomyelitis, HTN, HLD, Obesity, Diabetes mellitus type II, Tobacco use, recent discharge 02/18/21 s/p excision of right ischial pressure sore with partial ostectomy for osteomyelitis 02/14/[address] Granados with VAC placement treated with IV vanc, cefepime and oral flagyl with planned ongoing abx therapy until stop date per ID 03/28/21 who now re-presents to the [facility] ED on 03/13/21 with history of poor oral intake over the last 24 to 48 hours with onset of frontal throbbing headaches and fever starting at 7:30 PM the day prior. 1. Acute SIRS w/ Fever, Leukopenia, Neutropenia, Lymphopenia, Unclear exact etiology: Unclear if patient's fever is associated with patient's right ischial pressure ulceration with osteomyelitis status post recent OR although lower suspicion, will admit to medical surgical floor, maintain on telemetry given ongoing mild tachycardia, continue IV fluid bolus with maintenance fluids following, continue IV vancomycin, cefepime and oral Flagyl for recent infected chronic right ischial pressure ulceration status post OR as noted, will request Covid PCR as higher suspicion for etiology for current presentation given leukopenia, neutropenia, lymphopenia, unremarkable urine, unremarkable chest x-ray currently, recent dressing changes with continued improvement of wound with no marked purulent or foul appearing output into the VAC, will reconsult infectious disease and Dr. Granados, request wound RN consultation for VAC takedown and change, urine culture is pending, blood culture x2 pending unfortunately with no PICC line culture is unable to be drawn from therefore may need to consider IR intervention if able to. ESR, CRP requested. Respiratory viral panel requested. Procalcitonin requested. 2. Chronic R Ischial Pressure Ulceration Stage IV with associated Osteomyelitis: 02/18/21 s/p excision of right ischial pressure sore with partial ostectomy for osteomyelitis 02/14/[address] Granados with VAC placement. Operative tissue cultures positive for Proteus mirabilis, MRSA, Staphylococcus capitis, Streptococcus mitis, Corynebacterium jeikeium, Corynebacterium species and Clostridium ramosum and operative bone cultures positive for Streptococcus mitis, Staphylococcus capitis, Corynebacterium jeikeium. Will continue treatment with IV vanc, cefepime and oral flagyl with planned ongoing abx therapy until stop date per ID 03/28/21, will continue VAC with wound RN consultation, offloading. 3. History of T7 Cavernous Hemangioma: History of T7 lesion, no surgical intervention per discussion with patient, paraplegia following, will continue straight cath regimen, fall precautions, frequent position changes, PT and OT consultations for passive range of motion and assessment as well as case management for discharge planning given acute presentation #1. 4. Diabetes mellitus type II, diet controlled: Patient most recent hemoglobin A1c 6.5%, not on any oral regimen, will continue ADA diet with Accu-Cheks with insulin sliding scale. 5. Chronic normocytic anemia: Admission hemoglobin 12,4, baseline prior following intervention with recent OR 11-12, continue to trend CBC. 6. Morbid Obesity: Weight loss and lifestyle changes encouraged. 7. Hypertension: Not on regimen per current list, continue to monitor blood pressures and if appropriate add regimen. As needed IV hydralazine. 8. Hyperlipidemia: Not on regimen, defer to outpatient. 9. Tobacco Abuse: Encouraged cessation, inpatient consultation per RT, NR if desired. 10. EDWIGE: Will initiate BiPAP nightly per review of most recent pulmonary notes. 11. DVT prophylaxis: SCDs, lovenox. Charges/Coding Visit Charges OBSV E&M: 44935 Initial observation care L3
[2021-03-13 04:23] LABS: Lactic Acid 1.4 mmol/L (0.4-1.9)
[2021-03-13 04:35] LABS: Differential Comment SCANNED
--- NOTE | 2021-03-13 04:50 | CPS ---
pt refused resp panel at this time-er dr marino
[2021-03-13 05:40] LABS: Procalcitonin 0.22 ng/mL (0.00-0.09)
[2021-03-13] MEDS: Cefepime HCl 2 GM in 0.9% NS 100 ML Minibag Q8 IV (06:37)
[2021-03-13] MEDS: metroNIDAZOLE 500 MG Tablet PO (06:37)
[2021-03-13] MEDS: 0.9% Normal Saline 1,000 ML 125 ML IV ×2 (06:38→20:02)
[2021-03-13] MEDS: 0.9% Normal Saline 1,000 ML 500 ML IV (06:38)
--- NOTE | 2021-03-13 06:45 | PCM.RX.CS ---
Consult Pharmacy has been consulted to manage selected antiobiotic: Vancomycin Type of Consult: New start Suspected Infection: Osteomyelitis Prior Doses of Antibiotics Received/Current Regimen: Medications Vancomycin HCl 2,000 mg/ (Sodium Chloride) 540 mls @ 250 mls/hr IV Q12H JAVAD Last Admin: 03/13/21 06:37 Dose: 250 mls/hr Vancomycin HCl 1,500 mg/ (Sodium Chloride) 530 mls @ 250 mls/hr IV Q8H JAVAD Labs: Sodium 133 mmol/L (136-145) L 03/13/21 02:59 Potassium 4.1 mmol/L (3.5-5.1) 03/13/21 02:59 Chloride 100 mmol/L (98-107) 03/13/21 02:59 Carbon Dioxide 25.0 mmol/L (21.0-32.0) 03/13/21 02:59 Anion Gap 8 (5-15) 03/13/21 02:59 BUN 12 mg/dL (7-18) 03/13/21 02:59 Creatinine 0.42 mg/dL (0.70-1.30) L 03/13/21 02:59 Est GFR (MDRD) Af Amer 297 mL/min (>60) 03/13/21 02:59 Est GFR (MDRD) Non-Af 245 mL/min (>60) 03/13/21 02:59 BUN/Creatinine Ratio 28.9 RATIO (10-20) H 03/13/21 02:59 Glucose 166 mg/dL (74-106) H 03/13/21 02:59 Microbiology: Microbiology 03/13/21 03:15 Mucosa - Nose SARS-CoV-2 Antigen (Rapid) - Final Weight used for dosin kg Estimated Creatinine Clearance: 256 Goal Trough: 15-20 mcg/mL Pharmacy Plan for Drug Dosing: Pharmacy Service will continue to monitor and adjust dosing as required. Follow-Up Labs: Trough Vancomycin Labs to be done on [date and time ordered]: 03/14/21 @0600
[2021-03-13 07:21] LABS: Absolute Lymphocyte Count 0.95 X10^3/uL (0.83-4.51); Absolute Neutrophil Count 0.4 X10^3/uL (2.0-7.7); Basophil# 0.01 X10^3/uL; Basophil% 0.5 % (0-1); Eosinophil# 0.04 X10^3/uL; Eosinophils% 2.1 % (0-5); Hematocrit 38.8 % (40-54); Lymphocyte # 0.95 X10^3/ul (0.83-4.51); Lymphocyte % 50.3 % (19-41); Mean Corp Hgb Conc 30.9 g/dL (32-36); Mean Corpuscular Hgb 27.1 pg (27.0-32.0); Mean Corpuscular Volume 87.6 fL (80-94); Mean Platelet Vol. 10.8 fl (6.2-12.0); Monocyte# 0.46 X10^3/uL; Monocyte% 24.3 % (0-10); NRBC Flagged by Analyzer 0 % (0-5); Neutrophil # 0.42 X10^3/uL (2.7-7.7); Neutrophil % 22.3 % (47-70); POSITIVE DIFFERENTIAL YES; POSITIVE MORPHOLOGY YES; Platelet Count 186 K/mm3 (150-450); RBC Distribution Width CV 14.6 % (11.6-14.6); RBC Distribution Width SD 47.3 fl (35.1-43.9); Red Blood Count 4.43 M/mm3 (4.6-6.2); White Blood Count 1.9 K/mm3 (4.4-11.0)
--- NOTE | 2021-03-13 07:24 | CPS ---
This RT went into Pt's room to collect a RP and Covid PCR. Introduced myself and what I was there to do and Pt initially refused both swabs. I explained that this is the only way we can test for a RP. Pt allowed this RT to do one swab and stated if it will make the bitch happy. This RT called lab and verified that we would need two swabs for both tests, but stated they would attempt to run both tests off one swab.
[2021-03-13 07:26] LABS: Differential Indicated SCAN CRITERIA MET
--- NOTE | 2021-03-13 07:36 | NURSING ---
PT reports being angry that he has an order for a resp panel and a covid pcr. attempted to explain each test to see why pt may be having a fever but pt swearing and states he is not having the test. gas charger aware and had informed the gas charger also attempte to explain reason for test to pt. nurse range manager and dayshift gas charger aware pt wants to speak to the pt advocate.
--- NOTE | 2021-03-13 07:40 | NURSING ---
Spoke with lab regarding PCR and RP swabs. According to respiratory, patient would only let her get one swab. Lab was called and they state they have started to run the PCR already. They are not able to get a RP off the PCR COVID swab. Will make Dr. Hernández aware.
[2021-03-13 07:55] LABS: ALB/GLOB Ratio 0.7 RATIO (0.9-2.4); AST(SGOT) 16 U/L (15-37); Alanine Aminotransfer ALT/SGPT 35 U/L (16-61); Albumin, Serum 2.9 g/dL (3.2-5.0); Alkaline Phosphatase 98 U/L (45-117); Anion Gap 5 (5-15); BUN 11 mg/dL (7-18); BUN/Creat Ratio 30.3 RATIO (10-20); Calcium,Total 8.1 mg/dL (8.5-10.1); Chloride 103 mmol/L (98-107); Creatinine, Serum 0.36 mg/dL (0.70-1.30); EST Glomerular Filtration Rate 286 mL/min (>60); Est Glom Filt Rate - Afr Amer 347 mL/min (>60); Estimated Creatinine Clearance 299.22 ml/min; Globulin 4.2 g/dL (2.2-4.2); Glucose 135 mg/dL (74-106); Potassium 3.6 mmol/L (3.5-5.1); Protein, Total 7.1 g/dL (6.4-8.2); Sodium Level 133 mmol/L (136-145)
[2021-03-13 08:21] LABS: Erythrocyte Sedimentation Rate 70 mm/hr (0-20)
[2021-03-13] MEDS: Psyllium 1 PACKET PO (08:38)
[2021-03-13] MEDS: Juven (unflavored) Packet 1 PACKET PO ×2 (08:38→21:21)
[2021-03-13] MEDS: Enoxaparin 40 MG/0.4 ML Syringe SC ×2 (08:38→21:21)
--- NOTE | 2021-03-13 10:50 | CASEMGMT ---
Addendum entered by Destini Mckeon 03/13/21 11:42: Received tc back from Mana at [facility]. She is unable to determine acceptance until the RN CM is aware of the date of dc. Made her aware pt would need a Thursday or Thursday start of care for the vac change to narrow it down. Once date known this RN CM to call her back. Original Note: RN CARRIE in to pt room. Brian present at bedside. Pt states he is having his private hire [employer]ELD[employer] perform his wound vac changes and he is administering his own IV antibiotics. Pt states he is doing well at home. Pt is agreeable to this RN CM attempting to call [facility] to see if they can now accept him for services as he has had them in the past and they are able to take his insurance and go to [place]. Last admission there was great difficulty in finding HHC. TC to Mana at [facility] to place referral, left message on voicemail.
--- NOTE | 2021-03-13 11:36 | NURSING ---
wound photo: left lateral lower leg
--- NOTE | 2021-03-13 11:36 | NURSING ---
wound photo: right ischium
--- NOTE | 2021-03-13 11:38 | PCM.HOSP.N ---
Documented by User: Rober HARTMAN 03/13/21 11:42 Hospitalist Note Patient is a 35-year-old male who presented to the ED [facility] on 03/13/2021 with a chief complaint of fever and fatigue. She was admitted for acute SIRS with fever, leukopenia, neutropenia and lymphopenia of unclear etiology. Rapid Covid was initially negative, Covid PCR pending, viral respiratory panel requested. Urine, chest x-ray and also are unremarkable. Continue vancomycin, cefepime, Flagyl. DVT prophylaxis - Lovenox Patient seen by Rober Baer PA-C, under the supervision of Dr. Hernández. Documented by User: Dr. Sylvia Hernández MD 03/13/21 15:14 Addendum Addendum: Patient seen by Rober Baer PA-C under my supervision Patient seen and examined. He was admitted in the early hours of this morning with a complaint of fever. He was found to be leucopenic, neutropenic and lymphopenic as well. Rapid cOVID nd COVID PCR test were negative. Urinalysis also negative. Patient had no active complaints this morning. Review of systems otherwise negative. He has remained hemodynamically stable. He refused a respiratory panel. He has a righ ischial decubitus ulcer for which he follows up with wound clinic, and has had partial ostectomy for osteomyelitis in january 2021, with a wound vac in place an on IV antibiotics till 03/28/2021. Review of systems otherwise negative. Plan is to continue IV antibiotics-vancomycin and meropenem. Await culture resultsl; he does have a PICC line in place which could be a source of infection. ID on board. On lovenox for DVT prophylaxis. Rest as per Rober Baer PA-C's note, which I have reviewed and endorsed.
[2021-03-13] MEDS: Acetaminophen 325 MG Tablet 650 MG PO (11:43)
[2021-03-13 13:01] LABS: M R Staph aureus DNA By PCR Negative (Negative); Staph aureus DNA By PCR NEGATIVE (Negative)
[2021-03-13 13:02] LABS: Probe Check PASS; Specimen Processing Control PASS
[2021-03-13 13:03] LABS: Pathologist Review Reviewed
[2021-03-13 15:11] LABS: Bedside Glucose 130 mg/dL (70-110)
--- NOTE | 2021-03-13 15:49 | CHAPLAIN ---
Type of Pastoral Visit ___ Initial Visit ___ Follow-up Visit ___ On-call Visit ___ General Patient Visit ___ Spiritual Assessment ___ Family Conference ___ Bereavement ___ Rapid Response ___ Code Blue _x__ Other (describe below) Pastoral Care Referral From ___ Patient ___ Family ___ Nurse ___ Physician ___ Clinical Dental Technician ___ Vacuum System Tester ___ Other (describe below) Sacrament/Intervention ___ Active listening ___ Anointing ___ Mandaen ___ Bereavement ___ Communion ___ Shireen exploration ___ ___ Life review ___ Prayer ___ Reconciliation ___ Sacrament of Sick ___ Supportive presence ___ Wedding ___ Other (describe below) Pastoral Comments two attempts to visit patient and he is sleeping both times; did not awaken pt due to his status
[2021-03-13 17:15] LABS: Bedside Glucose 106 mg/dL (70-110)
--- NOTE | 2021-03-13 19:44 | PCM.CONS.GEN ---
Assessment & Plan Assessment/Plan (1) Fever: PLAN: Neutropenic fever while on vanc/cefepime/flagyl for sacral osteo. Wbc on 03/11 was normal. Not clear if this is due to abx. Wound doing well, low suspicion for covid at this time, but is unvaccinated. Will broader to vanc/tori. Follow cxs and wbc. Will follow, thank you (2) Leukopenia: (3) Osteomyelitis of pelvis: HPI Consult Data Date of Consult: 03/13/21 HPI Narrative HPI Narrative: GISELE KAY, is a 35 M who presented with new onset fever. Recent discharge on iv vanc/cefepime and po flagyl for sacral osteo. No issue with picc. No sick contacts. Has not gotten covid vaccine. Mild intermittent headache, no other focal symptoms. Wound has been doing well. Came to ED, found to have neutropenic fever, feeling a little better today. Full ROS performed and neg except as noted above. 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 Personal history of Methicillin resistant Staphylococcus aureus infection Pressure sore of left ischium, stage 4 Recurrent infections Right ischial pressure sore, stage 4 Sleep apnea Smoker Smoker Type 2 diabetes mellitus Urinary incontinence, nocturnal enuresis UTI (urinary tract infection) Home Medications nutritional supplements 1 ea PO BID 02/12/21 [History Last Taken Unknown] psyllium 1 packet PO DAILY 02/12/21 [History Last Taken Unknown] cefepime 2 g IV Q8H 37 Days #111 vial 02/18/21 [Rx Last Taken Unknown] metronidazole [Flagyl] 500 mg PO TID #111 tab 02/18/21 [Rx Last Taken Unknown] vancomycin in 0.9 % sodium chl 1.75 g IV Q8H 37 Days #111 bag 02/18/21 [Rx Last Taken Unknown] Allergy/AdvReac Type Severity Reaction Status Date / Time amoxicillin AdvReac Diarrhea Verified 03/13/21 00:16 Family History (Updated 03/13/21 @ 04:[address] Yanni Suarez MD) Father Hypertension Mother Hypertension Surgical History (Updated 03/13/21 @ 04:[address] Yanni Suarez MD) Hx of tonsillectomy Status post repair of complex wound Social History (Updated 03/13/21 @ 04:[address] Yanni Suarez MD) household members: spouse Smoking Status: Current every day smoker tobacco type: cigarettes Tobacco: How many years used: 19 alcohol intake: never substance use type: does not use what type of physical activity do you participate in: none Physical Exam Const alert, oriented x3 and no apparent distress General Appearance: cooperative HEENT normocephalic and head/scalp atraumatic Eyes PERRL and EOMs intact bilaterally Neck supple and No nodes Resp normal air movement and clear to auscultation bilaterally Cardio regular rate GI normal to inspection, nondistended, normoactive bowel sounds Extremity no clubbing, cyanosis or edema Skin Skin Narrative: reviewed wound photo Neuro CN's II-XII intact bilaterally Lab / Micro Data Result Diagrams: 03/13/21 06:40 03/13/21 06:40 Labs: Laboratory Results - last 24 hr 03/13/21 02:59: Sodium 133 L, Potassium 4.1, Chloride 100, Carbon Dioxide 25.0, Anion Gap 8, BUN 12, Creatinine 0.42 L, Estim Creat Clear Calc 256.48, Est GFR (MDRD) Af Amer 297, Est GFR (MDRD) Non-Af 245, BUN/Creatinine Ratio 28.9 H, Glucose 166 H, Calcium 8.3 L, Total Bilirubin 0.50, AST 18, ALT 38, Alkaline Phosphatase 103, Total Protein 7.2, Albumin 3.0 L, Globulin 4.2, Albumin/Globulin Ratio 0.7 L 03/13/21 02:59: Lactic Acid 1.4 03/13/21 02:59: WBC 1.2 L*, RBC 4.49 L, Hgb 12.4 L, Hct 38.7 L, MCV 86.2, MCH 27.6, MCHC 32.0, RDW Std Deviation 46.9 H, RDW Coeff of Darrell 14.7 H, Plt Count 191, MPV 10.6, Immature Gran % (Auto) 0.800, Neut % (Auto) 42.7 L, Lymph % (Auto) 27.0, [place] % (Auto) 25.4 H, Eos % (Auto) 3.3, Baso % (Auto) 0.8, Absolute Neuts (auto) 0.5 L, Absolute Lymphs (auto) 0.33 L, Nucleated RBC % 0, Differential Comment SCANNED, Diff Path Review Reviewed 03/13/21 03:15: Urine Color Yellow, Urine Clarity Clear, Urine pH 5.0, Ur Specific [place] 1.020, Urine Protein 15 H, Urine Glucose (UA) Normal, Urine Ketones 5 H, Urine Occult Blood 50 H, Urine Nitrite Negative, Urine Bilirubin Negative, Urine Urobilinogen Normal, Ur Leukocyte Esterase 100 H, Urine RBC 0-5 SEEN, Urine WBC 0-5 SEEN, Ur Squamous Epith Cells 0 SEEN, Urine Bacteria 1+, Urine Mucus 0 SEEN 03/13/21 05:05: Procalcitonin 0.22 H 03/13/21 06:40: WBC 1.9 L, RBC 4.43 L, Hgb 12.0 L, Hct 38.8 L, MCV 87.6, MCH 27.1, MCHC 30.9 L, RDW Std Deviation 47.3 H, RDW Coeff of Darrell 14.6, Plt Count 186, MPV 10.8, Immature Gran % (Auto) 0.500, Neut % (Auto) 22.3 L, Lymph % (Auto) 50.3 H, [place] % (Auto) 24.3 H, Eos % (Auto) 2.1, Baso % (Auto) 0.5, Absolute Neuts (auto) 0.4 L, Absolute Lymphs (auto) 0.95, Nucleated RBC % 0, Diff Path Review November foll, ESR 70 H 03/13/21 06:40: Sodium 133 L, Potassium 3.6, Chloride 103, Carbon Dioxide 25.0, Anion Gap 5, BUN 11, Creatinine 0.36 L, Estim Creat Clear Calc 299.22, Est GFR (MDRD) Af Amer 347, Est GFR (MDRD) Non-Af 286, BUN/Creatinine Ratio 30.3 H, Glucose 135 H, Calcium 8.1 L, Total Bilirubin 0.50, AST 16, ALT 35, Alkaline Phosphatase 98, C-React Prot Ext Range 77.70 H, Total Protein 7.1, Albumin 2.9 L, Globulin 4.2, Albumin/Globulin Ratio 0.7 L 03/13/21 06:49: POC Glucose 130 H 03/13/21 07:24: COVID-19 (SHANTANU) Not Detected 03/13/21 10:00: S.aureus Protein A PCR NEGATIVE, MRSA (PCR) Negative 03/13/21 17:10: POC Glucose 106 Micro: Microbiology 03/13/21 10:00 Wound - Ischium Gram Stain - Final 03/13/21 07:24 Mucosa - Nose Respiratory Panel (PCR) - Final 03/13/21 03:15 Mucosa - Nose SARS-CoV-2 Antigen (Rapid) - Final Radiology Impression Chest X-Ray 03/13/21 00:51 IMPRESSION: No acute cardiopulmonary disease. Electronically Signed: Gwen Ashley MD at 1:45 EDT , Service support ,
[2021-03-13] MEDS: Glucerna Shake 120 ML LIQUID PO (21:21)
[2021-03-13 21:35] LABS: Bedside Glucose 238 mg/dL (70-110)
--- NOTE | 2021-03-13 21:46 | CPS ---
Patient refusing to wear bipap. States that he does have one at home although he does not wear it.
--- NOTE | 2021-03-13 23:32 | PN.SURG_ITS ---
Subjective Subjective Postop #[id number] Patient known to me. On 02/14/21 he went to surgery where he underwent excision right ischial/perineal pressure sore, Stage IV, with partial ostectomy for osteomyelitis on 02/14/21. Cultures showed Proteus mirabilis, MRSA, Acinetobacter baumannii, and Clostridium. He was discharged on Vancomycin, Cefepime, and Flagyl until 03/28/21. He was recently admitted back to the hospital with fever and malaise. Also has severe neutropenia. His antibiotics were changed to Vancomycin and Meropenem. He states he is not having any trouble at home with the VAC dressing changes. Objective Data Objective Data Vital Signs: Vital Signs Temp Pulse Resp BP Pulse Ox 98.2 F 100 16 123/68 H 96 03/13/21 20:55 03/13/21 20:55 03/13/21 20:55 03/13/21 20:55 03/13/21 20:55 Oxygen Delivery Method Room Air Weight: 287 lb 6.384 oz Body Mass Index (BMI) 40.1 Intake & Output: Intake and Output for Last 24 Hours 03/11/21 03/12/21 03/13/21 23:59 23:59 23:59 Intake Total 5269.17 / 5269.17 Output Total 2650 / 2650 Balance 2619.17 / 2619.17 Lab / Micro Data Attestation: I reviewed the patient's lab results. Result Diagrams: 03/15/21 05:43 03/14/21 05:40 Labs: Laboratory Results - last 24 hr 03/13/21 02:59: Sodium 133 L, Potassium 4.1, Chloride 100, Carbon Dioxide 25.0, Anion Gap 8, BUN 12, Creatinine 0.42 L, Estim Creat Clear Calc 256.48, Est GFR (MDRD) Af Amer 297, Est GFR (MDRD) Non-Af 245, BUN/Creatinine Ratio 28.9 H, Glucose 166 H, Calcium 8.3 L, Total Bilirubin 0.50, AST 18, ALT 38, Alkaline Phosphatase 103, Total Protein 7.2, Albumin 3.0 L, Globulin 4.2, Albumin/Globulin Ratio 0.7 L 03/13/21 02:59: Lactic Acid 1.4 03/13/21 02:59: WBC 1.2 L*, RBC 4.49 L, Hgb 12.4 L, Hct 38.7 L, MCV 86.2, MCH 27.6, MCHC 32.0, RDW Std Deviation 46.9 H, RDW Coeff of Darrell 14.7 H, Plt Count 191, MPV 10.6, Immature Gran % (Auto) 0.800, Neut % (Auto) 42.7 L, Lymph % (Auto) 27.0, [place] % (Auto) 25.4 H, Eos % (Auto) 3.3, Baso % (Auto) 0.8, Absolute Neuts (auto) 0.5 L, Absolute Lymphs (auto) 0.33 L, Nucleated RBC % 0, Differential Comment SCANNED, Diff Path Review Reviewed 03/13/21 03:15: Urine Color Yellow, Urine Clarity Clear, Urine pH 5.0, Ur Specific [place] 1.020, Urine Protein 15 H, Urine Glucose (UA) Normal, Urine Ketones 5 H, Urine Occult Blood 50 H, Urine Nitrite Negative, Urine Bilirubin Negative, Urine Urobilinogen Normal, Ur Leukocyte Esterase 100 H, Urine RBC 0-5 SEEN, Urine WBC 0-5 SEEN, Ur Squamous Epith Cells 0 SEEN, Urine Bacteria 1+, Urine Mucus 0 SEEN 03/13/21 05:05: Procalcitonin 0.22 H 03/13/21 06:40: WBC 1.9 L, RBC 4.43 L, Hgb 12.0 L, Hct 38.8 L, MCV 87.6, MCH 27.1, MCHC 30.9 L, RDW Std Deviation 47.3 H, RDW Coeff of Darrell 14.6, Plt Count 186, MPV 10.8, Immature Gran % (Auto) 0.500, Neut % (Auto) 22.3 L, Lymph % (Auto) 50.3 H, [place] % (Auto) 24.3 H, Eos % (Auto) 2.1, Baso % (Auto) 0.5, Absolute Neuts (auto) 0.4 L, Absolute Lymphs (auto) 0.95, Nucleated RBC % 0, Diff Path Review May jasmin, ESR 70 H 03/13/21 06:40: Sodium 133 L, Potassium 3.6, Chloride 103, Carbon Dioxide 25.0, Anion Gap 5, BUN 11, Creatinine 0.36 L, Estim Creat Clear Calc 299.22, Est GFR (MDRD) Af Amer 347, Est GFR (MDRD) Non-Af 286, BUN/Creatinine Ratio 30.3 H, Glucose 135 H, Calcium 8.1 L, Total Bilirubin 0.50, AST 16, ALT 35, Alkaline Phosphatase 98, C-React Prot Ext Range 77.70 H, Total Protein 7.1, Albumin 2.9 L , Globulin 4.2, Albumin/Globulin Ratio 0.7 L 03/13/21 06:49: POC Glucose 130 H 03/13/21 07:24: COVID-19 (SHANTANU) Not Detected 03/13/21 10:00: S.aureus Protein A PCR NEGATIVE, MRSA (PCR) Negative 03/13/21 17:10: POC Glucose 106 03/13/21 21:25: POC Glucose 238 H Micro: Microbiology 03/13/21 10:00 Wound - Ischium Gram Stain - Final 03/13/21 07:24 Mucosa - Nose Respiratory Panel (PCR) - Final 03/13/21 03:15 Mucosa - Nose SARS-CoV-2 Antigen (Rapid) - Final Radiography Diagnostic Testing: Radiology Impression Chest X-Ray 03/13/21 00:51 IMPRESSION: No acute cardiopulmonary disease. Electronically Signed: Gwen Ashley MD at 1:45 EDT , Service support , Physical Exam Narrative PHYSICAL EXAMINATION General - Alert and Oriented HEENT - PERRL. EOMI. Abdomen - Soft and nondistended. Buttock - has bilateral ischial pressure sores. On the right side it measures 12 x 8 x 5 cm. Bone is exposed from recent partial ostectomy. Granulation tissue is present. No purulent drainage noted. No surrounding redness. No fluctuance. It is a Stage IV pressure sore. On the left side, there is abnormal scar tissue and macerated tissue. It appears to be healed on the outside except for the central area where the macerated scar tissue has migrated inward toward the underlying bone. Was a Stage IV pressure sore in the past. Neuro - CN II-XII grossly intact. Has paraplegia. Psych - Normal mood and affect. Assessment & Plan Assessment/Plan (1) Right ischial pressure sore, stage 4: (2) Osteomyelitis of pelvis: (3) Infection of wound due to methicillin resistant Staphylococcus aureus (MRSA): (4) Paraplegia: (5) Smoker: (6) Type 2 diabetes mellitus: QUALIFIERS: Diabetes mellitus prison insulin use: without intermediate card tender use Diabetes mellitus complication status: with skin complications PLAN: Neutropenia associated with fever is being evaluated. Continue IV antibiotics with Vancomycin and Meropenem until 03/28/21. The right ischial pressure sore is stable. Good granulation tissue seen. No evidence of infection. Continue the VAC. No need for further surgical debridement at this time. Will check a Urinalysis and culture. Sometimes postop fever can be due to a urinary infection. When discharged, can followup at the Wound Center. Patient states he has no trouble with the VAC at home. Patient's COVID test was negative. We discussed the current risks associated with COVID-19. While it is understood that there is a community spread of COVID-19, the risk of liang COVID-19 while at [facility] ([facility]) is very low; however, the risk cannot be completely mitigated because of the community spread of the disease. We discussed in detail the risk of exposure to and/or potential harm posed by the COVID-19 virus with having a surgery/procedure at this time versus the risk of delaying the surgery/procedure. It is not possible to know either the risk of delaying the surgery or procedure or chance of getting an infection with perfect accuracy, but a joint decision was made to proceed at this time with the scheduled surgery/procedure as indicated on the consent form. Patient was notified that we will need to comply with any screening or testing [facility] wishes to perform or that surgery may be delayed for any positive results.
[2021-03-14] VITALS (9 sets, daily range): BP systolic 124–136; BP diastolic 70–76; PULSE 79–101; RESP 14–18; TEMP 36.6–36.9; O2SAT 94–97
[2021-03-14] MEDS: 0.9% Normal Saline 1,000 ML 125 ML IV ×2 (05:51→21:05)
[2021-03-14 06:16] LABS: Bedside Glucose 136 mg/dL (70-110)
[2021-03-14 06:51] LABS: Absolute Neutrophil Count 0.6 X10^3/uL (2.0-7.7); Basophil# 0.01 X10^3/uL; Basophil% 0.5 % (0-1); Eosinophil# 0.09 X10^3/uL; Eosinophils% 4.2 % (0-5); Hematocrit 34.9 % (40-54); Hemoglobin 10.9 g/dL (13.0-16.5); Lymphocyte % 46.9 % (19-41); Mean Corp Hgb Conc 31.2 g/dL (32-36); Mean Corpuscular Hgb 27.4 pg (27.0-32.0); Mean Corpuscular Volume 87.7 fL (80-94); Mean Platelet Vol. 10.5 fl (6.2-12.0); Monocyte# 0.46 X10^3/uL; Monocyte% 21.6 % (0-10); NRBC Flagged by Analyzer 0 % (0-5); Neutrophil # 0.57 X10^3/uL (2.7-7.7); Neutrophil % 26.8 % (47-70); POSITIVE DIFFERENTIAL YES; POSITIVE MORPHOLOGY YES; Platelet Count 167 K/mm3 (150-450); RBC Distribution Width CV 14.7 % (11.6-14.6); RBC Distribution Width SD 47.7 fl (35.1-43.9); Red Blood Count 3.98 M/mm3 (4.6-6.2); White Blood Count 2.1 K/mm3 (4.4-11.0)
[2021-03-14 07:01] LABS: Differential Indicated SCAN CRITERIA MET
[2021-03-14 07:15] LABS: Vancomycin, Trough Level 9.1 ug/mL (5.0-15.0)
[2021-03-14 07:24] LABS: Anion Gap 7 (5-15); BUN 8 mg/dL (7-18); BUN/Creat Ratio 44.9 RATIO (10-20); Chloride 107 mmol/L (98-107); Creatinine, Serum 0.18 mg/dL (0.70-1.30); EST Glomerular Filtration Rate 652 mL/min (>60); Glucose 143 mg/dL (74-106); Potassium 3.9 mmol/L (3.5-5.1); Sodium Level 138 mmol/L (136-145)
[2021-03-14 07:25] LABS: Est Glom Filt Rate - Afr Amer 789 mL/min (>60)
--- NOTE | 2021-03-14 07:41 | PCM.RX.CS ---
Consult Pharmacy has been consulted to manage selected antiobiotic: Vancomycin Type of Consult: Follow-up Suspected Infection: Osteomyelitis Labs: Sodium 138 mmol/L (136-145) 03/14/21 05:40 Potassium 3.9 mmol/L (3.5-5.1) 03/14/21 05:40 Chloride 107 mmol/L (98-107) 03/14/21 05:40 Carbon Dioxide 24.0 mmol/L (21.0-32.0) 03/14/21 05:40 Anion Gap 7 (5-15) 03/14/21 05:40 BUN 8 mg/dL (7-18) 03/14/21 05:40 Creatinine 0.18 mg/dL (0.70-1.30) L 03/14/21 05:40 Est GFR (MDRD) Af Amer 789 mL/min (>60) 03/14/21 05:40 Est GFR (MDRD) Non-Af 652 mL/min (>60) 03/14/21 05:40 BUN/Creatinine Ratio 44.9 RATIO (10-20) H 03/14/21 05:40 Glucose 143 mg/dL (74-106) H 03/14/21 05:40 Vancomycin Trough 9.1 ug/mL (5.0-15.0) 03/14/21 05:40 Microbiology: Microbiology 03/13/21 10:00 Wound - Ischium Gram Stain - Final 03/13/21 07:24 Mucosa - Nose Respiratory Panel (PCR) - Final 03/13/21 03:15 Mucosa - Nose SARS-CoV-2 Antigen (Rapid) - Final Goal Trough: 15-20 mcg/mL Pharmacy Plan for Drug Dosing: VANCOMYCIN LEVEL RECEIVED Current Vancomycin Dose: 1500mg IV q8h (0630,1430,2230) Number of Doses Received: x1 2000mg loading dose, x3 1500mg doses Vancomycin Level: 9.1 Hours Since Last Dose: 8 Renal Function: SrCr 0.18 Renal Function Trend: CrCl is improving/stable Lab/Micro: Vancomycin Plan/Comments: recommend increasing dose to 1750mg IV q8h. trough resulted low as expected due to pts size. recommend slowly increasing dose. Pending Level: 03/15/21 at 1400 Pharmacy Service will continue to monitor and adjust dosing as required. Follow-Up Labs: Trough Vancomycin - 03/15/21 at 1400
[2021-03-14] MEDS: Enoxaparin 40 MG/0.4 ML Syringe SC ×2 (08:53→21:05)
[2021-03-14] MEDS: Psyllium 1 PACKET PO (08:53)
[2021-03-14] MEDS: Juven (unflavored) Packet 1 PACKET PO ×2 (08:53→21:05)
[2021-03-14] MEDS: Glucerna Shake 120 ML LIQUID PO ×3 (08:53→21:05)
--- NOTE | 2021-03-14 10:39 | PCM.PN.ID ---
Physical Exam Narrative Feeling fine, no fever/cough/PENNY/n/v/d. Const alert General Appearance: cooperative Resp normal air movement and clear to auscultation bilaterally Cardio regular rate and regular rhythm GI normal to inspection, nondistended, normoactive bowel sounds Skin no rashes or lesions noted ID ID: Route of nutrition/ use of supplements: [] Nutritional Intake: [] IV Site: [] Lee Catheter: [] Assessment & Plan Assessment/Plan (1) Fever: PLAN: Neutropenic fever while on vanc/cefepime/flagyl for sacral osteo. Wbc on 03/11 was normal. Not clear if this is due to abx. Wound doing well, low suspicion for covid at this time, but is unvaccinated. Broadened to vanc/tori. Following cxs and wbc. ANC slightly improved, would consider heme eval; neupogen might help this resolve faster. Will follow (2) Leukopenia: (3) Osteomyelitis of pelvis:
--- NOTE | 2021-03-14 11:34 | CASEMGMT ---
Addendum entered by Destini Mckeon 03/14/21 15:32: Confirmed with [facility] intake that pt is accepted for services to start on Thursday. Addendum entered by Destini Mckeon 03/14/21 12:02: TC to [facility], spoke with Debi. Made her aware that pt does have a wound center appt this Thursday but his picc dressing and labs are due that date. Start of care planned for Thursday if accepted. Original Note: AURORA BUTLER in to discuss MILLS form with patient. AURORA BUTLER explained MILLS form, patient voiced understanding. Pt signed form and filed in chart. Pt provided with a copy of signed MILLS form. Pt aware that [facility] is reviewing his chart for acceptance. Pt verified that he goes to the wound center every other week on Mondays. Pt comes to the hospital for his picc care and labs every Thursday. Patient had no further questions or concerns at this time. Notified [facility] at [facility] of this information. Acceptance pending.
[2021-03-14 12:27] LABS: Pathologist Review Reviewed
[2021-03-14 12:36] LABS: Bedside Glucose 177 mg/dL (70-110)
--- NOTE | 2021-03-14 13:17 | PCM.PN.HOSP ---
Documented by User: Dena Rich NP, [employer]RO[employer]PATCH[employer]-C 03/14/21 13:25 Subjective Subjective Patient seen and examined. Denies fever, chills. Denies other symptoms or complaints. Objective Data Objective Data Vital Signs: Vital Signs Temp Pulse Resp BP Pulse Ox 97.9 F 85 14 128/73 H 96 03/14/21 08:59 03/14/21 11:00 03/14/21 08:59 03/14/21 08:59 03/14/21 08:59 Oxygen Delivery Method Room Air Weight: 287 lb 6.384 oz Body Mass Index (BMI) 40.1 Intake & Output: Intake and Output for Last 24 Hours 03/12/21 03/13/21 03/14/21 23:59 23:59 23:59 Intake Total 5799.17 / 6399.17 3284.59 / 3284.59 Output Total 2650 / 3775 3450 / 3450 Balance 3149.17 / 2624.17 -165.41 / -165.41 Lab / Micro Data Result Diagrams: 03/14/21 05:40 03/14/21 05:40 Labs: Laboratory Results - last 24 hr 03/13/21 06:40: Diff Path Review Reviewed 03/13/21 06:49: POC Glucose 130 H 03/13/21 17:10: POC Glucose 106 03/13/21 21:25: POC Glucose 238 H 03/14/21 05:40: Vancomycin Trough 9.1 03/14/21 05:40: WBC 2.1 L, RBC 3.98 L, Hgb 10.9 L, Hct 34.9 L, MCV 87.7, MCH 27.4, MCHC 31.2 L, RDW Std Deviation 47.7 H, RDW Coeff of Darrell 14.7 H, Plt Count 167, MPV 10.5, Immature Gran % (Auto) 0.000, Neut % (Auto) 26.8 L, Lymph % (Auto) 46.9 H, [place] % (Auto) 21.6 H, Eos % (Auto) 4.2, Baso % (Auto) 0.5, Absolute Neuts (auto) 0.6 L, Absolute Lymphs (auto) 1.00, Nucleated RBC % 0 03/14/21 05:40: Sodium 138, Potassium 3.9, Chloride 107, Carbon Dioxide 24.0, Anion Gap 7, BUN 8, Creatinine 0.18 L, Estim Creat Clear Calc 598.45, Est GFR (MDRD) Af Amer 789, Est GFR (MDRD) Non-Af 652, BUN/Creatinine Ratio 44.9 H, Glucose 143 H, Calcium 8.0 L 03/14/21 06:11: POC Glucose 136 H 03/14/21 12:25: POC Glucose 177 H Micro: Microbiology 03/13/21 10:00 Wound - Ischium Gram Stain - Final 03/13/21 10:00 Wound - Ischium Wound Culture - Preliminary Gram positive organism 03/13/21 03:15 Urine, Catheterized Urine Culture - Preliminary Culture exhibits no growth. 03/13/21 07:24 Mucosa - Nose Respiratory Panel (PCR) - Final 03/13/21 03:15 Mucosa - Nose SARS-CoV-2 Antigen (Rapid) - Final Physical Exam Const alert, oriented x3 and no apparent distress Orientation / Consciousness: awake, oriented to person, oriented to place and oriented to time HEENT normocephalic and moist oral mucous membranes Eyes PERRL, EOMs intact bilaterally and conjunctivae normal Neck no lymphadenopathy Resp normal respiratory effort and clear to auscultation bilaterally Cardio regular rate, regular rhythm and no murmurs Peripheral Pulses: pulses 2+ throughout GI normal to inspection, nondistended, normoactive bowel sounds, non-tender and non-distended Extremity normal to inspection Extremity Narrative: Chronic paraplegia Skin no rashes or lesions noted Skin Narrative: left posterior heel ulcer, left lateral leg ulcer, perirectal ulcer/sacral ulcer, bilateral ischial ulcers. Lesions: no lesions Rashes: no rashes Trauma: no lacerations or abrasions Neuro CN's II-XII intact bilaterally, no focal motor deficits, no sensory deficits noted and deep tendon reflexes 2+ bilaterally Psych mental status grossly normal and affect normal Assessment & Plan Assessment/Plan (1) Fever: (2) Leukopenia: PLAN: 1. Neutropenic fever-ID following. Possibly due to antibiotics as patient has been on IV Vanco/cefepime/Flagyl for sacral osteo-. Covid on admission negative. Wound without evidence of infection. On IV Vanco and IV meropenem pending cultures. Fever and neutropenia improving. 2. Chronic right ischial pressure ulceration, stage IV with osteomyelitis-recent excision of right ischial pressure sore with partial ostectomy for osteomyelitis 02/14/2021. Wound VAC in place. Patient has been on IV vancomycin, IV cefepime and PO Flagyl with stop date 03/28/2021. Wound RN consult. ID following as noted above. 3. 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 Continue management of chronic wounds including left posterior heel ulcer, left lateral leg ulcer, perirectal ulcer and sacral ulcer. Left ischial previous wound found to have scar tissue and no surgical intervention needed. 4. Type 2 diabetes mellitus- not on regimen. HA1c 6.3%. Accu-Cheks with sliding scale insulin. 5. Hypertension-no longer on regimen. Blood pressure stable at this time. 6. Hyperlipidemia-no longer on regimen. Outpatient follow-up. 7. Obesity-encouraged dietary modifications. Nutrition consult. DVT prophylaxis-Lovenox subcu This patient was seen by ONUR Potts under the supervision of Dr. Hernández. Documented by User: Dr. Sylvia Hernández MD 03/14/21 15:32 Objective Data Lab / Micro Data Result Diagrams: 03/14/21 05:40 03/14/21 05:40 Charges/Coding Addendum Addendum: Patient seen by Dena MOHR under my supervision Patient seen and examined. He had no complaints today and had an uneventful night. He has no complaints. Review of systems otherwise negative. He is remained hemodynamically stable. O/E: Const alert, oriented x3 and no apparent distress Orientation / Consciousness: awake, oriented to person, oriented to place and oriented to time HEENT normocephalic and moist oral mucous membranes Eyes PERRL, EOMs intact bilaterally and conjunctivae normal Neck no lymphadenopathy Resp normal respiratory effort and clear to auscultation bilaterally Cardio regular rate, regular rhythm and no murmurs Peripheral Pulses: pulses 2+ throughout GI normal to inspection, nondistended, normoactive bowel sounds, non-tender and non-distended Extremity normal to inspection Extremity Narrative: Chronic paraplegia Skin no rashes or lesions noted Skin Narrative: multiple LE ulcers. Lesions: no lesions Rashes: no rashes Trauma: no lacerations or abrasions Neuro: no sensory deficits noted mental status grossly normal and affect normal Plan is continue IV antibiotics for now. Covid PCR and rapid antigen test were both negative. On IV vancomycin and meropenem. Blood cultures pending. Wound VAC in place for the chronic ischial decubitus ulcer with osteomyelitis. ID on board. Rest as per Dena James, which I have reviewed and endorsed. Visit Charges Inpatient E&M: 93813 Subs Hosp L2
--- NOTE | 2021-03-14 14:30 | CHAPLAIN ---
Type of Pastoral Visit _x__ Initial Visit ___ Follow-up Visit ___ On-call Visit ___ General Patient Visit ___ Spiritual Assessment ___ Family Conference ___ Bereavement ___ Rapid Response ___ Code Blue ___ Other (describe below) Pastoral Care Referral From _x__ Patient ___ Family ___ Nurse ___ Physician ___ Lathe Hand ___ Assistant Womens Volleyball Coach ___ Other (describe below) Sacrament/Intervention _x__ Active listening ___ Anointing ___ Bahai ___ Bereavement ___ Communion ___ Shireen exploration ___ ___ Life review ___ Prayer ___ Reconciliation ___ Sacrament of Sick ___ Supportive presence ___ Wedding ___ Other (describe below) Pastoral Comments patient describes himself as being self sufficient and is expecting to take care of himself when he goes home; pt has family nearby but is from spouse; pt states he has no concerns and just wants to go home soon; pt talks about his children
[2021-03-14 16:55] LABS: Bedside Glucose 193 mg/dL (70-110)
[2021-03-14] MEDS: MELATONIN 3 MG TABLET PO (22:06)
--- NOTE | 2021-03-14 22:29 | PCS.PANDOC ---
PANDEMIC DOCUMENTATION INITIATED: Date: 03/04/2021 Time: 190
[2021-03-15 03:37] VITALS: BP 141/77; PULSE 88; RESP 18; TEMP 36.6; O2SAT 95
[2021-03-15] MEDS: 0.9% Normal Saline 1,000 ML 125 ML IV (05:49)
[2021-03-15 06:58] LABS: Absolute Lymphocyte Count 1.15 X10^3/uL (0.83-4.51); Absolute Neutrophil Count 0.7 X10^3/uL (2.0-7.7); Basophil# 0.01 X10^3/uL; Basophil% 0.4 % (0-1); Eosinophil# 0.19 X10^3/uL; Eosinophils% 7.3 % (0-5); Hemoglobin 10.8 g/dL (13.0-16.5); Lymphocyte # 1.15 X10^3/ul (0.83-4.51); Lymphocyte % 43.9 % (19-41); Mean Corp Hgb Conc 30.9 g/dL (32-36); Mean Corpuscular Hgb 26.9 pg (27.0-32.0); Mean Corpuscular Volume 87.3 fL (80-94); Monocyte# 0.58 X10^3/uL; Monocyte% 22.1 % (0-10); NRBC Flagged by Analyzer 0 % (0-5); Neutrophil # 0.69 X10^3/uL (2.7-7.7); Neutrophil % 26.3 % (47-70); POSITIVE DIFFERENTIAL YES; Platelet Count 193 K/mm3 (150-450); RBC Distribution Width CV 14.6 % (11.6-14.6); RBC Distribution Width SD 46.7 fl (35.1-43.9); Red Blood Count 4.01 M/mm3 (4.6-6.2); White Blood Count 2.6 K/mm3 (4.4-11.0)
[2021-03-15 07:04] LABS: Differential Indicated SCAN CRITERIA MET
[2021-03-15 08:04] VITALS: O2SAT 95
--- NOTE | 2021-03-15 09:39 | CASEMGMT ---
Addendum entered by Destini Mckeon 03/15/21 15:00: Pt asking if he can run the tori and vanc together. Notified who is ok with it. Pt states his vanc runs over 2 hours and the tori is 3 hrs. He is aware he can run together if needed. [facility] He states tori will be in a mini bag plus. Pt states he has done this at home before. His hospital bag is the same. He verbalized steps of administration of med. Spoke with Rozina at [facility] to confirm the final orders and receipt of them. Addendum entered by Destini Mckeon 03/15/21 14:31: Faxed [facility] [place] the prior order for IV vanc, labs and picc dressing change order from outpt infusion. Debi WASSERMAN aware. Addendum entered by Destini Mckeon 03/15/21 13:40: Faxed [facility] [place] new antibiotic script. Addendum entered by Destini Mckeon 03/15/21 13:33: Faxed new rx for home antibiotic to [facility]. Pt to receive 2pm dose at hospital per nurse Hampton. Pt is aware. Original Note: AURORA BUTLER made tc to [facility] to make aware of patient potential change in IV atb, spoke to Mana. Faxed H&P and labs at this time. TC to outpt infusion, spoke with Sandra, cancelled pt picc dressing changes and lab draws.
[2021-03-15 10:00] VITALS: BP 142/87; PULSE 85; RESP 18; TEMP 37.1; O2SAT 97
[2021-03-15] MEDS: Glucerna Shake 120 ML LIQUID PO ×2 (10:17→15:39)
[2021-03-15] MEDS: Enoxaparin 40 MG/0.4 ML Syringe SC (10:19)
[2021-03-15] MEDS: Juven (unflavored) Packet 1 PACKET PO (10:20)
[2021-03-15] MEDS: Psyllium 1 PACKET PO (10:20)
--- NOTE | 2021-03-15 13:09 | PN.SURG_ITS ---
Subjective Subjective postop day #29 Patient known to me. On 02/14/21 he went to surgery where he underwent excision right ischial/perineal pressure sore, Stage IV, with partial ostectomy for osteomyelitis on 02/14/21. Cultures showed Proteus mirabilis, MRSA, Acinetobacter baumannii, and Clostridium. He was discharged on Vancomycin, C efepime, and Flagyl until 03/28/21. He was recently admitted back to the hospital with fever and malaise. Also has severe neutropenia. His antibiotics were changed to Vancomycin and Meropenem. He states he is not having any trouble at home with the VAC dressing changes. Objective Data Objective Data Vital Signs: Vital Signs Temp Pulse Resp BP Pulse Ox 98.8 F 85 18 142/87 H 97 03/15/21 10:00 03/15/21 10:00 03/15/21 10:00 03/15/21 10:00 03/15/21 10:00 Oxygen Delivery Method Room Air Weight: 291 lb 0.163 oz Body Mass Index (BMI) 40.1 Intake & Output: Intake and Output for Last 24 Hours 03/13/21 03/14/21 03/15/21 23:59 23:59 23:59 Intake Total 5799.17 / 6399.17 5325.00 / 5325.00 2316.25 / 2316.25 Output Total 2650 / 3775 5450 / 5450 700 / 700 Balance 3149.17 / 2624.17 -125.00 / -125.00 1616.25 / 1616.25 Lab / Micro Data Result Diagrams: 03/15/21 05:43 03/14/21 05:40 Labs: Laboratory Results - last 24 hr 03/14/21 16:47: POC Glucose 193 H 03/15/21 05:43: WBC 2.6 L, RBC 4.01 L, Hgb 10.8 L, Hct 35.0 L, MCV 87.3, MCH 26.9 L, MCHC 30.9 L, RDW Std Deviation 46.7 H, RDW Coeff of Darrell 14.6, Plt Count 193, MPV 11.0, Immature Gran % (Auto) 0.000, Neut % (Auto) 26.3 L, Lymph % (Auto) 43.9 H, [place] % (Auto) 22.1 H, Eos % (Auto) 7.3 H, Baso % (Auto) 0.4, Absolute Neuts (auto) 0.7 L, Absolute Lymphs (auto) 1.15, Nucleated RBC % 0 Micro: Microbiology 03/13/21 05:05 Blood Culture (Wb) - Right Hand Blood Culture - Preliminary No growth in 48 hours. 03/13/21 02:59 Blood Culture (Wb) - Left Hand Blood Culture - Preliminary No growth in 48 hours. 03/13/21 10:00 Wound - Ischium Gram Stain - Final 03/13/21 10:00 Wound - Ischium Wound Culture - Preliminary Gram positive organism 03/13/21 10:00 Wound - Ischium Anaerobic Culture - Preliminary Checking for anaerobes, further studies to follow. 03/13/21 03:15 Urine, Catheterized Urine Culture - Preliminary Culture exhibits no growth. 03/13/21 07:24 Mucosa - Nose Respiratory Panel (PCR) - Final 03/13/21 03:15 Mucosa - Nose SARS-CoV-2 Antigen (Rapid) - Final Physical Exam Const no apparent distress Constitutional Narrative: Patient looks better today compared to a couple days ago. Eyes PERRL Lymph Lymphatic: no lymphadenopathy noted Resp normal respiratory effort Cardio regular rate GI soft to palpation and non-tender Extremity Extremity Narrative: Normal capillary refill. Skin Wound Narrative: Right ischial/perineal ulcer is stable, Stage IV. Wound VAC in place at 150 mmHg. Neuro oriented x3 and CN's II-XII intact bilaterally Psych mental status grossly normal Assessment & Plan Assessment/Plan (1) Decubitus ulcer of right perineal ischial region, stage 4: (2) Leukopenia: (3) Fever: PLAN: Neutropenia associated with fever is being evaluated. Continue IV antibiotics with Vancomycin and Meropenem until 03/28/21. The right ischial pressure sore is stable. Good granulation tissue seen. No evidence of infection. Continue the VAC. No need for further surgical debridement at this time. Preliminary wound cultures from 03/13/21 positive for Staphylococcus species and Gram Positive Cocci. Urine culture from 03/13/21 positive for Yeast, not Samantha albicans. ID following. When discharged, can followup at the [facility]. Patient states he has no trouble with the VAC at home. He will follow up on Thursday04/01/21. Patient's COVID test was negative. Charges/Coding Procedures Integumentary [id number]: [id number] Global Visit
--- NOTE | 2021-03-15 13:10 | DCINST_ITS ---
Discharge Instructions Diet Discharge Diet: Carb Control Diet Activity Discharge Activity: Return to Normal Activity Dressing / Incision Call your doctor if your incision/area has: Continuous Slow Oozing, Sudden Increased Bleeding, Increased Pain/ Swelling, Increased Redness, Foul Smelling Discharge and Swelling at the incision site Call your doctor if you observe: Fever of 101 or Higher, Shortness of breath, Dizziness and Chest pain Follow Up Care Test Results: Test results from this visit will be discussed in further detail at your follow-up appointment, if applicable. Discharge Plan Admission Admit Date/Time: 03/13/21 04:35 Primary Reason for Your Visit: Neutropenic fever Attending Provider: Sylvia Hernández Primary Care Provider: Lee Andersen Consulting Providers: Víctor Mccallum ; Solitario Granados Instructions Additional Instructions / Restrictions: Continue wound VAC/Dressing changes as previously ordered. Discharge Orders/Prescriptions Prescriptions: New meropenem 1 gram recon soln 1 g IV Q8H Qty: 36 RF: 0 Continued psyllium Packet 1 packet PO DAILY RF: 0 nutritional supplements Powder 1 ea PO BID RF: 0 vancomycin in 0.9 % sodium chl 1.75 gram/250 mL solution 1.75 g IV Q8H 37 Days Qty: 111 RF: 0 Discontinued cefepime 2 gram recon soln 2 g IV Q8H 37 Days Qty: 111 RF: 0 metronidazole [Flagyl] 500 mg tablet 500 mg PO TID Qty: 111 RF: 0 Referrals / Follow Up: Wound Health [Outside] - In 1 Week Lee Andersen MD [Primary Care Provider] - In 1 Week Víctor Mccallum MD [STAFF PHYSICIAN] - See Referral Note (As scheduled) Disposition Disposition (needs filled in before D/C Order can be placed): Home Health Servic e
--- NOTE | 2021-03-15 13:16 | PCM.DC.SUM ---
Documented by User: Dena Rich NP, [employer] 03/15/21 13:22 Providers Date of Admission: 03/13/21 Date of Discharge: 03/15/21 Primary Care Physician: Dr. Lee Andersen MD Consultations 03/13/21 05:53 Consult: Infectious Disease Routine Consulting Provider: Víctor Mccallum Reason for Consult: SIRS, ? COVID EMERGENT Consult: No MD Notified: Yes Date Notified: 03/13/21 Time Notified: 09:40 Method of Notification: Answering Service Consult: Onc/Wound/maintenance operator Routine Comment: Consult: Plastic Surgery Routine Consulting Provider: Solitario Granados Reason for Consult: SIRS, lower suspicion for wound associated, pending COVID PCR EMERGENT Consult: No MD Notified: Yes Date Notified: 03/13/21 Time Notified: 09:47 Method of Notification: Text Reason For Visit: SIRS, UNCLEAR SOURCE Diagnosis Discharge Diagnosis (1) Fever: Status: Acute Code(s): R50.9 - Fever, unspecified (2) Leukopenia: Status: Acute Code(s): D72.819 - Decreased white blood cell count, unspecified Medications at Discharge Home Medications nutritional supplements 1 ea PO BID 02/12/21 psyllium 1 packet PO DAILY 02/12/21 vancomycin in 0.9 % sodium chl 1.75 g IV Q8H 37 Days #111 bag 02/18/21 meropenem 1 g IV Q8H #36 ea 03/15/21 Hospital Course Operations None Procedures None Summary of Care Provided Minutes Spent on Discharge: 35 Hospital Course: Patient is a 35-year-old male admitted 03/13/2021 due to fever. 1. Neutropenic fever-ID consulted during admission. Likely due to antibiotics as patient has been on IV Vanco/cefepime/Flagyl for sacral osteo-. Covid on admission negative. Wound without evidence of infection. Fever and neutropenia improving. Blood cultures negative. Transitioned to IV meropenem and IV vancomycin per ID. Follow-up with PCP in 1 week. Follow-up with ID as scheduled. 2. Chronic right ischial pressure ulceration, stage IV with osteomyelitis-recent excision of right ischial pressure sore with partial ostectomy for osteomyelitis 02/14/2021. Wound VAC in place. Patient has been on IV vancomycin, IV cefepime and PO Flagyl with stop date 03/28/2021. Antibiotics transitioned to IV meropenem and IV vancomycin as noted above. Home health for assistance with wound care/wound VAC at discharge. Follow-up with wound clinic in 1 week. 3. 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 Continue management of chronic wounds including left posterior heel ulcer, left lateral leg ulcer, perirectal ulcer and sacral ulcer. Left ischial previous wound found to have scar tissue and no surgical intervention needed. 4. Type 2 diabetes mellitus- not on regimen. HA1c 6.3%. 5. Hypertension-no longer on regimen. Blood pressure stable at this time. 6. Hyperlipidemia-no longer on regimen. Outpatient follow-up. 7. Obesity-encouraged dietary modifications. Nutrition consult. Physical Exam Const alert, oriented x3 and no apparent distress Orientation / Consciousness: awake, oriented to person, oriented to place and oriented to time HEENT normocephalic and moist oral mucous membranes Eyes PERRL, EOMs intact bilaterally and conjunctivae normal Neck no lymphadenopathy Resp normal respiratory effort and clear to auscultation bilaterally Cardio regular rate, regular rhythm and no murmurs Peripheral Pulses: pulses 2+ throughout GI normal to inspection, nondistended, normoactive bowel sounds, non-tender and non-distended Extremity normal to inspection Extremity Narrative: Chronic paraplegia Skin no rashes or lesions noted Skin Narrative: left posterior heel ulcer, left lateral leg ulcer, perirectal ulcer/sacral ulcer, bilateral ischial ulcers. Dressings intact. Wound VAC intact. Lesions: no lesions Rashes: no rashes Trauma: no lacerations or abrasions Neuro CN's II-XII intact bilaterally, no focal motor deficits, no sensory deficits noted and deep tendon reflexes 2+ bilaterally Psych mental status grossly normal and affect normal Patient seen and examined prior to discharge. Physical assessment as noted above. Patient is stable for discharge with follow up recommendations as noted above. This patient was seen by ONUR Potts under the supervision of Dr. Hernández. Weight / BMI Weight Weight: 291 lb 0.163 oz Body Mass Index (BMI) 40.1 ABG / Lab / Microbiology Data Result Diagrams: 03/15/21 05:43 03/14/21 05:40 Laboratory: Laboratory Results - last 24 hr 03/14/21 16:47: POC Glucose 193 H 03/15/21 05:43: WBC 2.6 L, RBC 4.01 L, Hgb 10.8 L, Hct 35.0 L, MCV 87.3, MCH 26.9 L, MCHC 30.9 L, RDW Std Deviation 46.7 H, RDW Coeff of Darrell 14.6, Plt Count 193, MPV 11.0, Immature Gran % (Auto) 0.000, Neut % (Auto) 26.3 L, Lymph % (Auto) 43.9 H, [place] % (Auto) 22.1 H, Eos % (Auto) 7.3 H, Baso % (Auto) 0.4, Absolute Neuts (auto) 0.7 L, Absolute Lymphs (auto) 1.15, Nucleated RBC % 0 Microbiology: Microbiology 03/13/21 05:05 Blood Culture (Wb) - Right Hand Blood Culture - Preliminary No growth in 48 hours. 03/13/21 02:59 Blood Culture (Wb) - Left Hand Blood Culture - Preliminary No growth in 48 hours. 03/13/21 10:00 Wound - Ischium Gram Stain - Final 03/13/21 10:00 Wound - Ischium Wound Culture - Preliminary Gram positive organism 03/13/21 10:00 Wound - Ischium Anaerobic Culture - Preliminary Checking for anaerobes, further studies to follow. 03/13/21 03:15 Urine, Catheterized Urine Culture - Preliminary Culture exhibits no growth. 03/13/21 07:24 Mucosa - Nose Respiratory Panel (PCR) - Final 03/13/21 03:15 Mucosa - Nose SARS-CoV-2 Antigen (Rapid) - Final D/C Instructions Discharge Diet: Carb Control Diet Call your doctor if your incision/area has: Continuous Slow Oozing, Sudden Increased Bleeding, Increased Pain/ Swelling, Increased Redness, Foul Smelling Discharge and Swelling at the incision site Call your doctor if you observe: Fever of 101 or Higher, Shortness of breath, Dizziness and Chest pain Meaningful Use Info Meaningful Use Diagnoses (Choose all that apply): None applicable Discharge Plan Admission Admit Date/Time: 03/13/21 04:35 Primary Reason for Your Visit: Neutropenic fever Attending Provider: Sylvia Hernández Primary Care Provider: Lee Andersen Consulting Providers: Víctor Mccallum ; Solitario Granados Instructions Additional Instructions / Restrictions: Continue wound VAC/Dressing changes as previously ordered. Discharge Orders/Prescriptions Prescriptions: New meropenem 1 gram recon soln 1 g IV Q8H Qty: 36 RF: 0 Continued psyllium Packet 1 packet PO DAILY RF: 0 nutritional supplements Powder 1 ea PO BID RF: 0 vancomycin in 0.9 % sodium chl 1.75 gram/250 mL solution 1.75 g IV Q8H 37 Days Qty: 111 RF: 0 Discontinued cefepime 2 gram recon soln 2 g IV Q8H 37 Days Qty: 111 RF: 0 metronidazole [Flagyl] 500 mg tablet 500 mg PO TID Qty: 111 RF: 0 Referrals / Follow Up: Wound Health [Outside] - In 1 Week Lee Andersen MD [Primary Care Provider] - In 1 Week Víctor Mccallum MD [STAFF PHYSICIAN] - See Referral Note (As scheduled) Disposition Disposition (needs filled in before D/C Order can be placed): Home Health Service Documented by User: Dr. Sylvia Hernández MD 03/15/21 16:44 Providers Date of Admission: 03/13/21 Reason For Visit: SIRS, UNCLEAR SOURCE Medications at Discharge Home Medications nutritional supplements 1 ea PO BID 02/12/21 psyllium 1 packet PO DAILY 02/12/21 vancomycin in 0.9 % sodium chl 1.75 g IV Q8H 37 Days #111 bag 02/18/21 meropenem 1 g IV Q8H #36 ea 03/15/21 ABG / Lab / Microbiology Data Result Diagrams: 03/15/21 05:43 03/14/21 05:40 Discharge Plan Admission Admit Date/Time: 03/13/21 04:35 Primary Reason for Your Visit: Neutropenic fever Attending Provider: Sylvia Hernández Primary Care Provider: Lee Andersen Consulting Providers: Víctor Mccallum ; Solitario Granados Instructions Additional Instructions / Restrictions: Continue wound VAC/Dressing changes as previously ordered. Discharge Orders/Prescriptions Prescriptions: New meropenem 1 gram recon soln 1 g IV Q8H Qty: 36 RF: 0 Continued psyllium Packet 1 packet PO DAILY RF: 0 nutritional supplements Powder 1 ea PO BID RF: 0 vancomycin in 0.9 % sodium chl 1.75 gram/250 mL solution 1.75 g IV Q8H 37 Days Qty: 111 RF: 0 Discontinued cefepime 2 gram recon soln 2 g IV Q8H 37 Days Qty: 111 RF: 0 metronidazole [Flagyl] 500 mg tablet 500 mg PO TID Qty: 111 RF: 0 Referrals / Follow Up: Wound Health [Outside] - In 1 Week Lee Andersen MD [Primary Care Provider] - In 1 Week Víctor Mccallum MD [STAFF PHYSICIAN] - See Referral Note (As scheduled) Disposition Disposition (needs filled in before D/C Order can be placed): Home Health Service Charges/Coding Addendum Addendum: Patient seen by Dena MOHR under my supervision Patient is a 35 y/o male with a PMH as outlined who was admitted with a complaint of fever. He has a history of right ischial pressure sore with partial ostectomy for osteomyelitis in January 2021, discharged on IV vancomycin, cefepime and oral flagyl till 03/28/2021. He came in with a complaint of fever and poor oral intake as well as headache, with his urine appearing darker than usual. URine culture showed 1+ bacteria. He had a PICC line in place. He was admitted and managed for neutropenic fever of unclear etiology. He was placed on IV vancomycin and meropenem. ID was consulted. He had blood cultures which were negative, and urine cultures grew mixed gram positive and gram negative cultures. His symptoms improved, and his fever settled. He was discharged home on IV vancomycin and IV meropenem via his PICC line, stop date 03/28/2021. He is to follow up with his PCP and ID. Patient seen and examined prior to discharge. He had no complaints, and review of systems is otherwise negative. He has remained hemodynamically stable. O/E: Const alert, oriented x3 and no apparent distress Orientation / Consciousness: awake, oriented to person, oriented to place and oriented to time HEENT normocephalic and moist oral mucous membranes Eyes PERRL, EOMs intact bilaterally and conjunctivae normal Neck no lymphadenopathy Resp normal respiratory effort and clear to auscultation bilaterally Cardio regular rate, regular rhythm and no murmurs Peripheral Pulses: pulses 2+ throughout GI normal to inspection, nondistended, normoactive bowel sounds, non-tender and non-distended Extremity normal to inspection Extremity Narrative: Chronic paraplegia Skin no rashes or lesions noted Skin Narrative: LE ulcers and sacral decubitus ulcers Lesions: no lesions Rashes: no rashes Trauma: no lacerations or abrasions Neuro CN's II-XII intact bilaterally, no focal motor deficits, Psych mental status grossly normal and affect normal Plan is for discharge home today as above. Neutropenia was improving, with wbc of 2.6 at time of review. He is to follow up with his PCP and ID. Rest as per ONUR Potts's note which I reviewed and endorsed. Visit Charges Inpatient E&M: [id number] Disch Hosp
--- NOTE | 2021-03-15 13:47 | PCM.PN.ID ---
Physical Exam Narrative Feeling good, no fever Const alert and no apparent distress General Appearance: cooperative Resp normal air movement and clear to auscultation bilaterally Cardio regular rate and regular rhythm GI normal to inspection, nondistended, normoactive bowel sounds Skin Skin Narrative: no new rash ID ID: Route of nutrition/ use of supplements: [] Nutritional Intake: [] IV Site: [] Lee Catheter: [] Assessment & Plan Assessment/Plan (1) Fever: PLAN: Neutropenic fever while on vanc/cefepime/flagyl for sacral osteo. Wbc on 03/11 was normal. Not clear if this is due to abx. Wound doing well, low suspicion for covid at this time, but is unvaccinated. Broadened to vanc/tori. Following cxs and wbc. ANC slightly improved, ok for d/c home on vanc/tori, stop date 03/28/21, d/w manager rn case, wrote rx. Will follow (2) Leukopenia: (3) Osteomyelitis of pelvis:
[2021-03-15 14:00] VITALS: BP 143/78; PULSE 84; RESP 18; TEMP 36.7; O2SAT 96
[2021-03-15 14:54] LABS: Vancomycin, Trough Level 10.8 ug/mL (5.0-15.0)
== END 2021-03-15 17:00 | disposition home health service (06) ==
LOC: ED 05:05 → MS3 07:16
PROVIDERS: Nurse Practitioner Family; Physician Assistant; Surgery; Admitting Provider Family Medicine; Emergency Provider Emergency Medicine; PCP Internal Medicine; Visit Provider Student in an Organized Health Care Education/Training Program
DX: E11.69 Type 2 diabetes mellitus with other specified complication (principal); M46.28 Osteomyelitis of vertebra, sacral and sacrococcygeal region; R50.81 Fever presenting with conditions classified elsewhere; G82.20 Paraplegia, unspecified; E66.01 Morbid (severe) obesity due to excess calories; Z68.41 Body mass index [BMI] 40.0-44.9, adult; G47.33 Obstructive sleep apnea (adult) (pediatric); F17.210 Nicotine dependence, cigarettes, uncomplicated; E78.5 Hyperlipidemia, unspecified; I10 Essential (primary) hypertension; L89.214 Pressure ulcer of right hip, stage 4; E11.621 Type 2 diabetes mellitus with foot ulcer; B96.4 Proteus (mirabilis) (morganii) as the cause of diseases classified elsewhere; B95.7 Other staphylococcus as the cause of diseases classified elsewhere; B95.62 Methicillin resistant Staphylococcus aureus infection as the cause of diseases classified elsewhere; B95.4 Other streptococcus as the cause of diseases classified elsewhere; D70.9 Neutropenia, unspecified; L97.429 Non-pressure chronic ulcer of left heel and midfoot with unspecified severity; E11.622 Type 2 diabetes mellitus with other skin ulcer; L89.152 Pressure ulcer of sacral region, stage 2
CPT/HCPCS: 36415; 71045; 80048; 80053; 80202; 81001; 82962; 83605; 84145; 85025; 85652; 86140; 87040; 87070; 87075; 87077; 87086; 87088; 87186; 87205; 87426; 87633; 87635; 87640; 96361; 96365; 96366; 96367; 96368; 96372; 97802; 99218; 99251; 99282; J2185; J2997; J7030; J7040; U0005; A4216; G0378; G0463; U0003

== ENCOUNTER 2021-03-20 11:38 | Outpatient (RCR) | payer MEDICARE, SELFPAY ==
[2021-03-20 12:46] LABS: Hematocrit 45.2 % (40-54); Hemoglobin 13.9 g/dL (13.0-16.5); Mean Corp Hgb Conc 30.8 g/dL (32-36); Mean Corpuscular Hgb 26.6 pg (27.0-32.0); Mean Corpuscular Volume 86.6 fL (80-94); Mean Platelet Vol. 10.3 fl (6.2-12.0); Platelet Count 447 K/mm3 (150-450); RBC Distribution Width CV 14.2 % (11.6-14.6); RBC Distribution Width SD 45.1 fl (35.1-43.9); Red Blood Count 5.22 M/mm3 (4.6-6.2); White Blood Count 6.3 K/mm3 (4.4-11.0)
[2021-03-20 13:03] LABS: AST(SGOT) 22 U/L (15-37); Alanine Aminotransfer ALT/SGPT 75 U/L (16-61); Albumin, Serum 3.1 g/dL (3.2-5.0); Alkaline Phosphatase 126 U/L (45-117); Anion Gap 4 (5-15); BUN 13 mg/dL (7-18); BUN/Creat Ratio 33.5 RATIO (10-20); Bilirubin, Direct 0.09 mg/dL (0.00-0.30); Calcium,Total 9.2 mg/dL (8.5-10.1); Chloride 103 mmol/L (98-107); Creatinine, Serum 0.39 mg/dL (0.70-1.30); EST Glomerular Filtration Rate 265 mL/min (>60); Est Glom Filt Rate - Afr Amer 321 mL/min (>60); Globulin 4.9 g/dL (2.2-4.2); Glucose 146 mg/dL (74-106); Potassium 4.8 mmol/L (3.5-5.1); Sodium Level 137 mmol/L (136-145)
[2021-03-20 13:05] LABS: Vancomycin, Trough Level 8.9 ug/mL (5.0-15.0)
== END 2021-03-20 18:00 | disposition home or self-care (01) ==
LOC: HHLAB 11:38
PROVIDERS: PCP Internal Medicine; Visit Provider Internal Medicine Infectious Disease
DX: Z00.00 Encounter for general adult medical examination without abnormal findings (principal); E11.9 Type 2 diabetes mellitus without complications
CPT/HCPCS: 80048; 80076; 80202; 85027

== ENCOUNTER → 2021-03-27 04:44 | Outpatient (CLI) | payer MEDICARE, SELFPAY ==
[2021-03-27 11:50] LABS: Erythrocyte Sedimentation Rate 79 mm/hr (0-20)
[2021-03-27 11:52] LABS: Absolute Lymphocyte Count 1.05 X10^3/uL (0.83-4.51); Absolute Neutrophil Count 4.3 X10^3/uL (2.0-7.7); Basophil# 0.04 X10^3/uL; Basophil% 0.6 % (0-1); Eosinophil# 0.15 X10^3/uL; Eosinophils% 2.3 % (0-5); Hematocrit 44.7 % (40-54); Hemoglobin 13.9 g/dL (13.0-16.5); Lymphocyte # 1.05 X10^3/ul (0.83-4.51); Lymphocyte % 16.3 % (19-41); Mean Corp Hgb Conc 31.1 g/dL (32-36); Mean Corpuscular Hgb 26.6 pg (27.0-32.0); Mean Corpuscular Volume 85.6 fL (80-94); Mean Platelet Vol. 10.7 fl (6.2-12.0); Monocyte# 0.85 X10^3/uL; Monocyte% 13.2 % (0-10); NRBC Flagged by Analyzer 0 % (0-5); Neutrophil # 4.32 X10^3/uL (2.7-7.7); Neutrophil % 67.3 % (47-70); Platelet Count 362 K/mm3 (150-450); RBC Distribution Width CV 14.6 % (11.6-14.6); RBC Distribution Width SD 45.6 fl (35.1-43.9); Red Blood Count 5.22 M/mm3 (4.6-6.2); White Blood Count 6.4 K/mm3 (4.4-11.0)
[2021-03-27 12:09] LABS: AST(SGOT) 15 U/L (15-37); Alanine Aminotransfer ALT/SGPT 63 U/L (16-61); Albumin, Serum 3.3 g/dL (3.2-5.0); Alkaline Phosphatase 167 U/L (45-117); Anion Gap 6 (5-15); BUN 10 mg/dL (7-18); BUN/Creat Ratio 28.4 RATIO (10-20); Bilirubin, Direct 0.13 mg/dL (0.00-0.30); Calcium,Total 9.3 mg/dL (8.5-10.1); Chloride 103 mmol/L (98-107); Creatinine, Serum 0.35 mg/dL (0.70-1.30); EST Glomerular Filtration Rate 297 mL/min (>60); Est Glom Filt Rate - Afr Amer 359 mL/min (>60); Globulin 4.9 g/dL (2.2-4.2); Glucose 157 mg/dL (74-106); Potassium 3.9 mmol/L (3.5-5.1); Protein, Total 8.2 g/dL (6.4-8.2); Sodium Level 136 mmol/L (136-145)
[2021-03-27 12:11] LABS: Vancomycin, Trough Level 11.1 ug/mL (5.0-15.0)
== END ==
PROVIDERS: PCP Internal Medicine; Visit Provider Internal Medicine Infectious Disease
DX: M46.28 Osteomyelitis of vertebra, sacral and sacrococcygeal region (principal)
CPT/HCPCS: 36415; 80048; 80076; 80202; 85025; 85652

== ENCOUNTER 2021-04-01 13:12 | Outpatient (RCR) | payer MEDICARE, SELFPAY ==
[2021-03-20 00:23] VITALS: BP 151/82; PULSE 115; RESP 20; TEMP 36.4; BMI 39.6
[2021-04-01 13:27] VITALS: BP 126/70; PULSE 88; TEMP 36.6; BMI 39.6
--- NOTE | 2021-04-01 15:08 | PN.PCM_ITS ---
History of Present Illness Date of Service: 04/01/21 Chief Complaint: Ulcer on left distal lateral leg and right ischial ulcer. History of Wound: Adiel is a 34 year old male who is wheelchair bound and paraplegic. [facility] areas he is presenting for evaluation today. He has had his current ulcers for over 2 months. He has been treating the areas with silvercell dressings and recently was placed on an antibiotic by his PCP. The left lower leg ulcers appear to be from pressure. He is unsure of how they developed. His ulcers on his sacrum and right buttock are from pressure and friction from transferring from his wheelchair to chair with his slide board. He also has an area that was from a temi-rectal abscess that is still open and draining. He reports that he is independent in his ADL's but does have a nurse that comes to care for him daily in the morning for a short time daily. He has a history of Type 2 DM, last A1C 7.0% on 12/20/2019. He has been seen at both our wound healing center and [facility]'s in [place] in the past for previous uclers. He has previously received Apligraf to his ulcers of his lower legs but the last application was probably 9 months ago. Surgery 02/14/21 - Excision right ischial/perineal pressure sore, Stage IV, with partial ostectomy for osteomyelitis. Operative bone culture positive for Streptococcus mitis/oralis, Staphylococcus capitis, corynebacterium jeikeium. Operative tissue culture positive for Proteus mirabilis, MRSA, Staphylococcus capitis, Streptococcus mitis/oralis, Corynebacterium jeikeium, Corynebacterium species and Clostridium ramosum. ID is managing his antibiotics of Vancomycin and Cefepime IV and Flagyl po. Wound care - Wound VAC at 150 mmHg three times per week. Wash area with soap and water at the time of VAC changes. Left lateral leg - Kita M-W-F covered by gauze. Patient admitted 03/13/21 for Neutropenic fever. IV medication switched to IV meropenem and IV Vancomycin per ID. The patient denies any fever, chills, nausea, vomiting, or diarrhea. Denies any signs of infection, including increasing pain, redness, swelling, or drainage from affected area. Progress of Wound: Stable. Objective Data Objective Data Vital Signs: Vital Signs Temp Pulse Resp BP 97.9 F 88 20 H 126/70 H 04/01/21 13:27 04/01/21 13:27 03/20/21 00:23 04/01/21 13:27 Weight: 330 lb Body Mass Index (BMI) 39.6 Charges/Coding Procedures Integumentary [id number]: [id number] Mylene subq tissue 20 sq cm/< (left heel ulcer, modifier 79) Physical Exam Const alert and oriented x3 General Appearance: cooperative HEENT normocephalic Resp normal respiratory effort Cardio regular rate GI non-tender Palpation: soft Extremity normal capillary refill Skin Wound Narrative: Right buttock ulcer into the muscle with bone exposure. The left lateral leg ulcer is healed. He has a new ulcer on left heal caused from him hitting it on his wheel chair. It is full thickness into the fat layer. Neuro CN's II-XII intact bilaterally Psych affect normal Debridement Note Debridement Note Wound debrided: buttocks ulcer Laterality: Right Wound Grade/Stage: Stage IV Type of Debridement: Excisional debridement Anesthesia Used: 5% Lidocaine Gel Depth: Down to and including healthy tissue, in the subcutaneous layer and to muscle Percentage of wound debrided: 100 Instrument Used: 7mm curette Tissue Removed: Subcutaneous tissue and slough into the muscle with bone exposure. Severity: Fat Layer Exposed Bleeding Controlled with: Pressure and Compression and gauze Patient tolerated procedure: Patient tolerated procedure well Post-Debridement Measurements and Additional Note: Post-Debridement Measurements/Treatment - Nurse 1 - General Ulcer Assessment Start: 04/01/21 13:26 Freq: Status: Active Protocol: SHALONDA Activity Type Activity Date Activity User E-Sign Co-Sign Detail Recorded Client Recorded Date Recorded By Document 04/01/21 13:27 NEELAM [id number] 04/01/21 13:32 NEELAM 04/01/21 13:27 - Today's Visit Information Type of service Follow-up Visit (Physician/CONFERENCE CENTER MANAGER ) Arrival Mode Wheelchair Patient Identification Verified (Name & Yes ) Patient Requires Transmission-Based No Precautions Safety Precautions NA Height and Weight Body Mass Index (BMI) 39.6 BMI Classification Obese Vital Signs Temperature (97.8 F-99.1 F) 97.9 F Temperature Source Temporal Pulse Rate (60-100) 88 Pulse Location Monitor Blood Pressure (90/60-120/80) 126/70 H Blood Pressure Mean (mm Hg) 88 Source Monitor History Since Last Visit- (Skip if this is Patient's initial visit) Have you changed medications since your No last visit? Any new allergies or adverse reactions No Had a fall/change in ADL's that may No increase risk of falls Signs or symptoms of abuse and/or No neglect since last visit Have you been in the hospital since your No last visit? Has dressing in place as prescribed Yes Has compression in place as prescribed N/A Has offloadiing in place as prescribed Yes Experienced any changes in pain level or No management WC - Nurse 1 - General Ulcer Measurement Start: 04/01/21 13:26 Freq: Status: Active Protocol: Activity Type Activity Date Activity User E-Sign Co-Sign Detail Recorded Client Recorded Date Recorded By Document 04/01/21 13:27 NEELAM [id number] 04/01/21 13:32 NEELAM 04/01/21 13:27 Wound Center Nurse 1 #15 L Heel -Current Size (cm) - Length 1.5 -Current Size (cm) - Width 1.5 -Current Size (cm) - Depth 0.1 -Total Square Cm 2.25 -Photo Taken No -Epithelialization None Present -Tunneling No -Undermining/Tunneling No -Circular Undermining No -Change in Wound Grade/Stage No -Exudate Amt Medium -Exudate Type Purulent -Wound Margin Distinct, Outline Attached -Granulation Quality N/A -Slough/Fibrin Yes -Necrosis Amt Medium (34-66%) -Necrotic Tissue Type Adherent Slough -Structure Exposed N/A -Texture (Temi-wound Skin Appearance) Assessed -Moisture (Temi-wound Skin Appearance) Assessed, Maceration -Color (Temi-wound Skin Appearance) No Abnormality, Assessed -Temperature (Temi-wound Skin No Abnormality Appearance) (Pt Warm) -Tenderness on Palpation (Temi-wound No Skin Appearance) -Ulcer Cleansing Rinsed/ Irrigated with Saline -Foul Odor after Cleansing No 10. R buttock fold -Combined with other wound No -Current Size (cm) - Length 9 -Current Size (cm) - Width 6.5 -Current Size (cm) - Depth 8 -Total Square Cm 58.5 -Photo Taken No -Tunneling Yes -Tunneling Position (O'clock) 12 -Tunneling Distance (cm) 8.8 -Tunneling Position #2 (O'clock) 1 -Undermining/Tunneling No -Circular Undermining No -Change in Wound Grade/Stage No -Exudate Type Serosanguineous -Wound Margin Distinct, Outline Attached -Granulation Quality [place] -Necrosis Amt Medium (34-66%) -Necrotic Tissue Type Adherent Slough -Structure Exposed Muscle,Bone,Fat Layer Exposed -Texture (Temi-wound Skin Appearance) Assessed, Scarring,Rash -Moisture (Temi-wound Skin Appearance) No Abnormality, Assessed -Color (Temi-wound Skin Appearance) No Abnormality, Assessed -Temperature (Temi-wound Skin No Abnormality Appearance) (Pt Warm) -Tenderness on Palpation (Temi-wound No Skin Appearance) -Ulcer Cleansing Rinsed/ Irrigated with Saline -Foul Odor after Cleansing No WC - Nurse 2 - General Ulcer CM Notes Start: 04/01/21 13:26 Freq: Status: Active Protocol: Activity Type Activity Date Activity User E-Sign Co-Sign Detail Recorded Client Recorded Date Recorded By Document 04/01/21 13:38 CHARLI [id number] 04/01/21 13:55 CHARLI 04/01/21 13:38 Wound Center Nurse 2 #15 L Heel -Time 13:43 -Correct Patient Yes -Correct Side, Site, Position Yes -Correct Procedure Yes -Procedure Performed Yes -Type of Procedure Debridement -Clinical Debridement Subcutaneous -Tissue Removed Subcutaneous -Post Debridement (cm) - Length 1.7 -Post Debridement (cm) - Width 1.4 -Post Debridement (cm) - Depth 0.2 -Total Square (Post) (cm) 2.38 -Area of Debridement (cm) - Length 1.7 -Area of Debridement (cm) - Width 1.4 -Total Square (Area) (cm) 2.38 -Tunneling No -Undermining/Tunneling No -Circular Undermining No -Wound/Ulcer Outcome Not Healed -Ulcer Cleansing Rinsed/ Irrigated with Saline -Bioengineered Tissue No -Bleeding Controlled with Pressure -Offloading No -Treatment Response Procedure Tolerated Well -Debridement - Subq, 1st 20sq cm Yes 10. R buttock fold -Time 13:43 -Correct Patient Yes -Correct Side, Site, Position Yes -Correct Procedure Yes -Procedure Performed Yes -Type of Procedure Incision & Drainage -Clinical Debridement Muscle / Fascia -Tissue Removed Muscle -Post Debridement (cm) - Length 10.5 -Post Debridement (cm) - Width 6 -Post Debridement (cm) - Depth 9.5 -Total Square (Post) (cm) 63.0 -Area of Debridement (cm) - Length 10.5 -Area of Debridement (cm) - Width 6 -Total Square (Area) (cm) 63.0 -Tunneling No -Undermining/Tunneling No -Circular Undermining No -Wound/Ulcer Outcome Not Healed -Ulcer Cleansing Rinsed/ Irrigated with Saline -Foul Odor after Cleansing No -Bioengineered Tissue No -Bleeding Controlled with Pressure -Offloading No -Treatment Response Procedure Tolerated Well -Debridement - Muscle / Fascia, 1st Yes 20sq cm -Debridement, Muscle/Fascia, ea addt'l 3 20sq cm or part thereof 7. L lateral LE -Time 13:46 -Correct Patient No -Correct Side, Site, Position No -Correct Procedure No -Procedure Performed No -Post Debridement (cm) - Length 0 -Post Debridement (cm) - Width 0 -Post Debridement (cm) - Depth 0 -Total Square (Post) (cm) 0 -Area of Debridement (cm) - Length 0 -Area of Debridement (cm) - Width 0 -Total Square (Area) (cm) 0 -Tunneling No -Undermining/Tunneling No -Circular Undermining No -Wound/Ulcer Outcome Healed- Epithelialized -Bleeding Controlled with Pressure -Offloading No -Treatment Response Procedure Tolerated Well -Debridement - Subq, 1st 20sq cm No Pain Scale: 0-10 Numeric Is Patient Pain Free? Yes WC - Nurse 3 - General Ulcer D/C NN Start: 04/01/21 13:26 Freq: Status: Active Protocol: Activity Type Activity Date Activity User E-Sign Co-Sign Detail Recorded Client Recorded Date Recorded By Document 04/01/21 14:09 NEELAM [id number] 04/01/21 14:23 NEELAM 04/01/21 14:09 Wound Care Nurse 3 #15 L Heel -Ulcer Cleansing Rinsed/ Irrigated with Saline -Foul Odor after Cleansing No -Negative Pressure Wound Therapy N/A -Primary Dressing Applied Promogran -Primary Dressing Covered/Secured with Dry Gauze & Roll Gauze, Secured with Tape -Promogran 1 10. R buttock fold -Ulcer Cleansing Rinsed/ Irrigated with Saline -Foul Odor after Cleansing No -Negative Pressure Wound Therapy N/A -Other Dressing wet to dry- home will put on the vac -Primary Dressing Covered/Secured with Dry Gauze, Secured with Tape -Other Covering ABD WC - Visit Discharge Discharge Condition Stable Ambulatory Status Wheelchair Transportation Private Auto Medication Reconcilliation completed & No provided to patient/care provider Clinical Summary of Care Provided Yes Additional Wound Wound debrided: heal ulcer Laterality: Left Type of Debridement: Excisional debridement Anesthesia Used: 4% Lidocaine Solution Depth: Down to and including healthy tissue and in the subcutaneous layer Percentage of wound debrided: 100 Instrument Used: 3mm curette Tissue Removed: Subcutaneous tissue and slough Severity: Fat Layer Exposed Amount of bleeding with debridement: Mild Bleeding Controlled with: Pressure Patient tolerated procedure: Patient tolerated procedure well Assessment/Plan Assessment/Plan (1) Decubitus ulcer of right perineal ischial region, stage 4: CODE(S): L89.314 - Pressure ulcer of right buttock, stage 4 (2) Ulcer of left heel and midfoot with fat layer exposed: CODE(S): L97.422 - Non-pressure chronic ulcer of left heel and midfoot with fat layer exposed (3) Smoker: CODE(S): F17.200 - Nicotine dependence, unspecified, uncomplicated PLAN: Wound care - Right ischial/perineal ulcer wound VAC at 150 mmHg three times per week. Left lateral leg ulcer is healed. He has a new ulcer on his left heel from hitting his foot against his wheelchair. Will place Moistened Kita covered by gauze daily on this ulcer. We are not able to place the wound VAC at the wound center today, so he will do either Dakin's moistened gauze or saline moistened gauze covered with ABDs until the wound VAC can be placed. His antibiotics were changed to Meropenem and Vancomycin IV after he was hospit alized with a Neutropenic fever. Antibiotics are being managed by infectious disease, Dr. Mccallum. He finishes his antibiotic tomorrow, so his PICC line should be able to be discontinued when home health comes out later in the week to see him. Operative tissue cultures positive for Proteus mirabilis, MRSA, Staphylococcus capitis, Streptococcus mitis, Corynebacterium jeikeium, Corynebacterium species and Clostridium ramosum. Operative bone cultures positive for Streptococcus mitis, Staphylococcus capitis, Corynebacterium jeikeium. He is interested in a flap to help his ischial ulcer heal in the future. Follow up one week with Dr. Lara and in 3-4 weeks with me.
--- NOTE | 2021-04-12 09:36 | WC ---
Received a call from Su from [facility] home health. She stated she is at patient home now. Temp is elevated to 102 and wound bed on right buttock has worsened. Instructed home health nurse to hold wound vac, pack ulcer with wet to dry dressing and send patient to ER for evaluation. Voiced understanding and patient stated he will go to ER. Spoke with Alexia Edward TELECOMMUNICATIONS OPERATOR to notify of patient change in condition and going to ER.
== END 2021-04-18 23:59 ==
LOC: WC 13:12
PROVIDERS: Family Provider Internal Medicine; PCP Internal Medicine; Referring Provider Nurse Practitioner Family; Visit Provider Nurse Practitioner Family
DX: L89.314 Pressure ulcer of right buttock, stage 4 (principal); L89.214 Pressure ulcer of right hip, stage 4; E11.621 Type 2 diabetes mellitus with foot ulcer; L97.422 Non-pressure chronic ulcer of left heel and midfoot with fat layer exposed; K61.1 Rectal abscess; G82.20 Paraplegia, unspecified; E66.9 Obesity, unspecified; Z68.39 Body mass index [BMI] 39.0-39.9, adult; Z99.3 Dependence on wheelchair; F17.200 Nicotine dependence, unspecified, uncomplicated
CPT/HCPCS: 11042; 11043; 11046

== ENCOUNTER 2021-04-12 11:19 | Inpatient (IN) | payer MEDICARE, SELFPAY ==
[2021-04-12] VITALS (8 sets, daily range): BP systolic 112–161; BP diastolic 56–89; PULSE 81–129; RESP 14–22; TEMP 36.7–37.4; O2SAT 95–99; BMI 38.6
--- NOTE | 2021-04-12 13:00 | EDS_ITS ---
HPI History of Present Illness Chief Complaint: Wound Informant: patient Narrative Narrative: Patient is a 35-year-old male with history of paraplegia and MRSA infection of a buttocks wound subsequently requiring surgical debridement by Dr. Granados presenting from home for concern of infected wound. Patient had a home health nurse come in today and look at his wound. His wound VAC was taken off and there was concern for infection. Patient states he is been feeling fine but did develop fever yesterday. He states his temperature has been less than 100 but he had a lot of chills. He is also felt dehydrated and despite drinking a lot of water he had decreased urine output. He has had a chronic wound on his left heel that intermittently gets worse as well. He is not sure if it is better or worse at this time. He denies any other complaints. He notes he does not have any pain but he also cannot his lower extremities. The patient had a stage IV right ischial/perineal pressure sore that underwent partial ostectomy for osteomyelitis on 02/09/2021. Cultures were positive for Proteus, MRSA, actinobacter and Clostridium. He was discharged on Vanc, cefepime and Flagyl until 03/28/2021. Antibiotics were subsequently changed to vancomycin and meropenem. 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 Personal history of Methicillin resistant Staphylococcus aureus infection Pressure sore of left ischium, stage 4 Recurrent infections Right ischial pressure sore, stage 4 Sleep apnea Smoker Smoker Type 2 diabetes mellitus Urinary incontinence, nocturnal enuresis UTI (urinary tract infection) Home Medications NK 04/12/21 [History Last Taken Unknown] Allergy/AdvReac Type Severity Reaction Status Date / Time amoxicillin AdvReac Diarrhea Verified 04/12/21 11:21 Family History Father Hypertension Mother Hypertension Surgical History Hx of tonsillectomy Status post repair of complex wound Social History household members: spouse Smoking Status: Current every day smoker tobacco type: cigarettes Tobacco: How many years used: 19 alcohol intake: never substance use type: does not use what type of physical activity do you participate in: none ROS ROS ED Constitutional Constitutional ED: Reports chills and fever(s) ENT ENT ED: Denies ear pain, rhinorrhea or sore throat Cardiovascular Cardiovascular: Denies chest pain or palpitations Respiratory/Chest Respiratory/Chest: Denies cough or dyspnea Gastrointestinal Gastrointestinal: Denies abdominal pain, diarrhea or vomiting Genitourinary Genitourinary ED: Denies dysuria or hematuria Musculoskeletal Musculoskeletal: Denies arthralgias, back pain, myalgias or neck pain Integumentary Reports other Details: chronic wound right buttocks and left heel. Neurologic Neurologic: Reports other Details: Paralysis of the lower extremities with subsequent numbness, chronic ; Denies headache(s) EXAM Physical Exam Const Vital Signs: 04/12/21 11:22 04/12/21 12:42 04/12/21 13:17 Temperature 98.3 F 98.8 F Temperature Source Temporal Oral Pulse Rate 81 123 H Respiratory Rate 14 18 Blood Pressure 147/79 H 161/77 H Blood Pressure Mean 101 105 Pulse Ox 97 97 Oxygen Delivery Method Room Air Room Air Room Air 04/12/21 14:12 Temperature Temperature Source Pulse Rate 129 H Respiratory Rate 22 H Blood Pressure 158/89 H Blood Pressure Mean 112 Pulse Ox 95 Oxygen Delivery Method Room Air Positive well nourished and well developed Constitutional Narrative: Patient shivering during my exam General Appearance ED: well developed HEENT Reports moist mucous membranes Negative for tenderness Eyes PERRL and EOMs intact bilaterally Neck supple and no JVD Chest Wall inspection of chest normal Resp normal respiratory effort and clear to auscultation bilaterally Cardio regular rhythm and no murmurs Rate: tachycardic GI normal to inspection, nondistended, normoactive bowel sounds Extremity Extremity Narrative: pressure wound left heel though subcutaneous tissue. No movement of LE B/L General Extremety ED: Yes edema General Extremity: edema Neuro oriented x3 and CN's II-XII intact bilaterally Neuro Narrative: No strength or sensation of the lower extremities bilaterally. Sensorium / Orientation: alert Psych mental status grossly normal Skin Skin Narrative: Patient is a large chronic appearing buttocks wound that goes down to what appears to be the bone. Packing is in place. There is a slight film over the subcutaneous tissue that is concerning for infection and the wound is odorous. No active drainage. MDM MDM MDM Narrative Medical decision making narrative: Patient evaluated for concern of infected chronic wound. Patient has a buttocks wound as well as the left heel wound and has developed chills and fever over the past day. On evaluation he is shivering and I suspect he is developing a fever. He meets criteria for severe sepsis but not septic shock. He is started on broad-spectrum antibiotics including vancomycin and Zosyn. He is given Tylenol for his fever. Is given a liter of IV fluids. I do suspect that his infection is from his buttocks wound. He will be admitted for further treatments include IV antibiotics and wound care. Patient is agreeable to this plan of care. Lab Data Attestation: I reviewed the patient's lab results. Labs: Laboratory Results - last 24 hr 04/12/21 04/12/21 04/12/21 12:50 12:50 12:50 WBC 21.0 H RBC 4.76 Hgb 12.4 L Hct 39.2 L MCV 82.4 MCH 26.1 L MCHC 31.6 L RDW Std Deviation 44.3 H RDW Coeff of Darrell 14.7 H Plt Count 405 MPV 9.9 Immature Gran % (Auto) 0.700 Neut % (Auto) 84.9 H Lymph % (Auto) 7.6 L [place] % (Auto) 6.3 Eos % (Auto) 0.1 Baso % (Auto) 0.4 Absolute Neuts (auto) 17.8 H Absolute Lymphs (auto) 1.60 Nucleated RBC % 0 PT 15.2 H INR 1.3 APTT 33.4 Sodium 132 L Potassium 4.1 Chloride 98 Carbon Dioxide 30.0 Anion Gap 4 L BUN 5 L Creatinine 0.53 L Estim Creat Clear Calc 209.45 Est GFR (MDRD) Af Amer 224 Est GFR (MDRD) Non-Af 185 BUN/Creatinine Ratio 9.5 L Glucose 135 H Lactic Acid Calcium 9.3 Total Bilirubin 0.50 AST 39 H ALT 119 H Alkaline Phosphatase 196 H Total Creatine Kinase 36 L Total Protein 8.4 H Albumin 2.8 L Globulin 5.6 H Albumin/Globulin Ratio 0.5 L Urine Color Urine Clarity Urine pH Ur Specific [place] Urine Protein Urine Glucose (UA) Urine Ketones Urine Occult Blood Urine Nitrite Urine Bilirubin Urine Urobilinogen Ur Leukocyte Esterase Urine RBC Urine WBC Ur Squamous Epith Cells Urine Bacteria Urine Mucus 04/12/21 04/12/21 12:50 14:40 WBC RBC Hgb Hct MCV MCH MCHC RDW Std Deviation RDW Coeff of Darrell Plt Count MPV Immature Gran % (Auto) Neut % (Auto) Lymph % (Auto) [place] % (Auto) Eos % (Auto) Baso % (Auto) Absolute Neuts (auto) Absolute Lymphs (auto) Nucleated RBC % PT INR APTT Sodium Potassium Chloride Carbon Dioxide Anion Gap BUN Creatinine Estim Creat Clear Calc Est GFR (MDRD) Af Amer Est GFR (MDRD) Non-Af BUN/Creatinine Ratio Glucose Lactic Acid 2.1 H* Calcium Total Bilirubin AST ALT Alkaline Phosphatase Total Creatine Kinase Total Protein Albumin Globulin Albumin/Globulin Ratio Urine Color Yellow Urine Clarity Clear Urine pH 8.0 Ur Specific [place] 1.010 Urine Protein Negative Urine Glucose (UA) Normal Urine Ketones 5 H Urine Occult Blood 10 H Urine Nitrite Negative Urine Bilirubin Negative Urine Urobilinogen 1 H Ur Leukocyte Esterase 25 H Urine RBC 0-5 SEEN Urine WBC 10-25 SEEN Ur Squamous Epith Cells 0 SEEN Urine Bacteria 0 SEEN Urine Mucus 0 SEEN Radiography Chest X-Ray - ED: 1 View, Read by ED Physician, Read by Radiologist and No Acute Disease Diagnostic Testing: Radiology Impression Chest X-Ray 04/12/21 13:12 IMPRESSION: 1. No radiographic evidence of acute cardiopulmonary disease. 2. Left PICC line catheter removal is the only change since 03/13/2021. Electronically Signed: Kaleb Valencia MD at 13:44 EDT , Service support , Foot X-Ray 04/12/21 13:12 IMPRESSION: No acute osseous abnormality of the left foot and no significant change when compared to 09/28/2019. Electronically Signed: Kaleb Valencia MD at 13:46 EDT , Service support , Discharge Plan Triage Chief Complaint: Wound ED Provider: Scarlett Arriaga Dx/Rx/DC Orders Clinical Impression: Ulcer of left heel and midfoot with fat layer exposed, Decubitus ulcer of right perineal ischial region, stage 4, Severe sepsis Primary Care Provider: Lee Andersen Disposition Disposition: Acute Care [facility]
[2021-04-12 13:03] LABS: Absolute Neutrophil Count 17.8 X10^3/uL (2.0-7.7); Basophil# 0.09 X10^3/uL; Basophil% 0.4 % (0-1); Eosinophil# 0.02 X10^3/uL; Eosinophils% 0.1 % (0-5); Hematocrit 39.2 % (40-54); Hemoglobin 12.4 g/dL (13.0-16.5); Lymphocyte % 7.6 % (19-41); Mean Corp Hgb Conc 31.6 g/dL (32-36); Mean Corpuscular Hgb 26.1 pg (27.0-32.0); Mean Corpuscular Volume 82.4 fL (80-94); Mean Platelet Vol. 9.9 fl (6.2-12.0); Monocyte# 1.33 X10^3/uL; Monocyte% 6.3 % (0-10); NRBC Flagged by Analyzer 0 % (0-5); Neutrophil % 84.9 % (47-70); Platelet Count 405 K/mm3 (150-450); RBC Distribution Width CV 14.7 % (11.6-14.6); RBC Distribution Width SD 44.3 fl (35.1-43.9); Red Blood Count 4.76 M/mm3 (4.6-6.2)
--- NOTE | 2021-04-12 13:12 | RAD_ITS ---
EXAM: XR LEFT FOOT COMPLETE, 3 OR MORE VIEWS CLINICAL INDICATION: left arora wound TECHNIQUE: Frontal, lateral and oblique views of the left foot. This report was created using [employer] report generation technology. COMPARISON: 09/28/2019. FINDINGS: BONES/JOINTS: Diffuse osteopenia is unchanged. Soft tissue swelling in the foot and ankle are unchanged. No acute fracture. No subluxation. Normal alignment. Preservation of the joint space. No sclerotic or destructive changes observed. SOFT TISSUES: See above. RAD/Foot min 3 Views IMPRESSION: No acute osseous abnormality of the left foot and no significant change when compared to 09/28/2019. Electronically Signed: Kaleb Valencia MD at 13:46 EDT , Service support ,
--- NOTE | 2021-04-12 13:12 | RAD_ITS ---
EXAM: XR CHEST, 1 VIEW CLINICAL INDICATION: fever TECHNIQUE: Frontal view of the chest. This report was created using [employer] report generation technology. COMPARISON: 03/13/2021. FINDINGS: LUNGS AND PLEURAL SPACES: Unremarkable. No consolidation or edema. No pneumothorax. No effusion. HEART: Unremarkable. Cardiac silhouette not enlarged. MEDIASTINUM: Central airways and mediastinal contour are unremarkable. BONES/JOINTS: Unremarkable. SOFT TISSUES: Unremarkable. RAD/Chest 1 View (Portable) IMPRESSION: 1. No radiographic evidence of acute cardiopulmonary disease. 2. Left PICC line catheter removal is the only change since 03/13/2021. Electronically Signed: Kaleb Valencia MD at 13:44 EDT , Service support ,
[2021-04-12] MEDS: Acetaminophen 325 MG Tablet 650 MG PO ×2 (13:16→18:09)
[2021-04-12 13:30] LABS: ALB/GLOB Ratio 0.5 RATIO (0.9-2.4); AST(SGOT) 39 U/L (15-37); Alanine Aminotransfer ALT/SGPT 119 U/L (16-61); Albumin, Serum 2.8 g/dL (3.2-5.0); Alkaline Phosphatase 196 U/L (45-117); Anion Gap 4 (5-15); BUN 5 mg/dL (7-18); BUN/Creat Ratio 9.5 RATIO (10-20); CPK Total, Creatine Kinase 36 U/L (39-308); Calcium,Total 9.3 mg/dL (8.5-10.1); Chloride 98 mmol/L (98-107); Creatinine, Serum 0.53 mg/dL (0.70-1.30); EST Glomerular Filtration Rate 185 mL/min (>60); Est Glom Filt Rate - Afr Amer 224 mL/min (>60); Estimated Creatinine Clearance 209.45 ml/min; Globulin 5.6 g/dL (2.2-4.2); Glucose 135 mg/dL (74-106); Potassium 4.1 mmol/L (3.5-5.1); Protein, Total 8.4 g/dL (6.4-8.2); Sodium Level 132 mmol/L (136-145)
[2021-04-12 13:36] LABS: Lactic Acid 2.1 mmol/L (0.4-1.9)
[2021-04-12 13:43] LABS: International Normalized Ratio 1.3; Prothrombin Time (Protime)PT. 15.2 SECONDS (11.7-14.9)
[2021-04-12 13:44] LABS: Partial Thromboplast Time 33.4 Seconds (24.1-36.2)
--- NOTE | 2021-04-12 13:44 | ED.RN ---
called lab for attempt for blood draw for second cultures.
[2021-04-12 14:43] LABS: Bacteria 0 SEEN /hpf (None Seen); Mucous, Urine 0 SEEN /hpf (<or=2+); Squamous Epithelial Cells - UA 0 SEEN /hpf (0-5)
[2021-04-12] MEDS: 0.9% Normal Saline 1,000 ML 999 ML IV (14:45)
[2021-04-12 14:53] LABS: Color, Urine Yellow (Yellow); Glucose, Dipstick Normal (Normal); Ketone-Dipstick 5 mg/dl (Negative); Leukocyte Esterase-Dipstick 25 /ul (Negative); Nitrite-Dipstick Negative (Negative); Occult Blood-Urine 10 /ul (Negative); Protein-Dipstick Negative (Negative); Urine Bilirubin Dipstick Negative (Negative); Urine Clarity Clear (Clear); Urine Urobilinogen 1 mg/dl (Normal)
[2021-04-12 15:07] LABS: Red Blood Cells-Urine 0-5 SEEN /hpf (0-5); White Blood Cells 10-25 SEEN /hpf (0-5)
--- NOTE | 2021-04-12 15:49 | HP.PCM.HOS_ITS ---
HPI - General General Date of Admission: 04/12/21 HPI Narrative GISELE KAY, is a 35 M with protracted history of paraplegia, MRSA infection of buttock wound status post surgical debridement by Dr. Granados came from home for worsening of the wound. Patient's home health nurse checked at the wound wound VAC was taken off for infection. Patient reported fever with chills but did not measure temperature. The patient has a stage IV right ischial buttock pressure ulcer for which he u nderwent partial ostectomy for osteomyelitis on 02/09/2021. Previous culture showed positive MRSA, Proteus, Acinetobacter and Clostridium. During hospital course, patient was on vancomycin, cefepime and Flagyl for sacral osteomyelitis. Patient had fever with neutropenia which improved. Patient was discharged. Patient was recently admitted and discharged on 03/15/2021 on IV meropenem and vancomycin, stop date 03/28/2021. 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 Personal history of Methicillin resistant Staphylococcus aureus infection Pressure sore of left ischium, stage 4 Recurrent infections Right ischial pressure sore, stage 4 Sleep apnea Smoker Smoker Type 2 diabetes mellitus Urinary incontinence, nocturnal enuresis UTI (urinary tract infection) Home Medications NK 04/12/21 [History Last Taken Unknown] Allergy/AdvReac Type Severity Reaction Status Date / Time amoxicillin AdvReac Diarrhea Verified 04/12/21 11:21 Family History Father Hypertension Mother Hypertension Surgical History Hx of tonsillectomy Status post repair of complex wound Social History household members: spouse Smoking Status: Current every day smoker tobacco type: cigarettes Tobacco: How many years used: 19 alcohol intake: never substance use type: does not use what type of physical activity do you participate in: none ROS ROS Narrative Constitutional: Reports fatigue and weakness. HEENT: Reports systems reviewed and no addt'l complaints, except as documented Respiratory/Chest: Denies chest pain, shortness of breath at rest or with exertion Gastrointestinal: Denies coffee ground emesis, hematemesis or vomiting Genitourinary: Patient does self-catheterization. No bladder sensation or motor function. Musculoskeletal: Paraplegic below waist level. Neurologic: Denies seizure-like activity. skin: Large wound in the right buttock area. Rash over both groin Endocrinology: Reports systems reviewed and no addt'l complaints, except as documented Hematologic/Lymphatic: Reports systems reviewed and no addt'l complaints, except as documented Rest 12 ROS are negative except as mentioned in HPI Vital Signs Vital Signs Vital Signs: 04/12/21 11:22 04/12/21 12:42 04/12/21 13:17 Temperature 98.3 F 98.8 F Temperature Source Temporal Oral Pulse Rate 81 123 H Respiratory Rate 14 18 Blood Pressure 147/79 H 161/77 H Blood Pressure Mean 101 105 Pulse Ox 97 97 Oxygen Delivery Method Room Air Room Air Room Air 04/12/21 14:12 04/12/21 15:27 Temperature 99.4 F H Temperature Source Temporal Pulse Rate 129 H 118 H Respiratory Rate 22 H 20 H Blood Pressure 158/89 H 112/61 Blood Pressure Mean 112 78 Pulse Ox 95 97 Oxygen Delivery Method Room Air Room Air Weight Weight: 285 lb Body Mass Index (BMI) 38.6 Physical Exam Narrative General: Alert, Oriented x3, Cooperative, morbid obese BMI 38.7 Kd per meter square HEENT: Atraumatic, PERRLA, EOMI, Normocephalic Oral: No Gingival or Mucosal Lesions/ Ulcerations Neck: Supple, No JVD, Negative Carotid Bruits Lungs: Air entry diminished in bilateral lung bases. No crepitation/rhonchi Cardiovascular: Regular rate, Regular Rhythm, Normal S1, Normal S2, No murmurs Abdomen: Bowel Sounds Present, Soft, Non Tender, Non-Distended : No renal angle tenderness. No suprapubic tenderness. Extremities: No edema, Capillary Refill Less than 3 Seconds Skin: Large ulcer over right buttock area, packed with the large. Looks dry. No significant slough noticed. Bilateral groin rash noticed. Musculoskeletal: Paraplegic. Neurological: Cranial nerves II-XII grossly intact, nonfocal. No motor or sensation below baseline. Psych/Mental Status: Normal Affect, Appropriate. Results Lab / Micro Data Result Diagrams: 04/12/21 12:50 04/12/21 12:50 Labs: Laboratory Results - last 24 hr 04/12/21 12:50: WBC 21.0 H, RBC 4.76, Hgb 12.4 L, Hct 39.2 L, MCV 82.4, MCH 26.1 L, MCHC 31.6 L, RDW Std Deviation 44.3 H, RDW Coeff of Darrell 14.7 H, Plt Count 405, MPV 9.9, Immature Gran % (Auto) 0.700, Neut % (Auto) 84.9 H, Lymph % (Auto) 7.6 L, [place] % (Auto) 6.3, Eos % (Auto) 0.1, Baso % (Auto) 0.4, Absolute Neuts (a uto) 17.8 H, Absolute Lymphs (auto) 1.60, Nucleated RBC % 0 04/12/21 12:50: PT 15.2 H, INR 1.3, APTT 33.4 04/12/21 12:50: Sodium 132 L, Potassium 4.1, Chloride 98, Carbon Dioxide 30.0, Anion Gap 4 L, BUN 5 L, Creatinine 0.53 L, Estim Creat Clear Calc 209.45, Est GFR (MDRD) Af Amer 224, Est GFR (MDRD) Non-Af 185, BUN/Creatinine Ratio 9.5 L, Glucose 135 H, Calcium 9.3, Total Bilirubin 0.50, AST 39 H, ALT 119 H, Alkaline Phosphatase 196 H, Total Creatine Kinase 36 L, Total Protein 8.4 H, Albumin 2.8 L, Globulin 5.6 H, Albumin/Globulin Ratio 0.5 L 04/12/21 12:50: Lactic Acid 2.1 H* 04/12/21 14:40: Urine Color Yellow, Urine Clarity Clear, Urine pH 8.0, Ur Specific [place] 1.010, Urine Protein Negative, Urine Glucose (UA) Normal, Urine Ketones 5 H, Urine Occult Blood 10 H, Urine Nitrite Negative, Urine Bilirubin Negative, Urine Urobilinogen 1 H, Ur Leukocyte Esterase 25 H, Urine RBC 0-5 SEEN, Urine WBC 10-25 SEEN, Ur Squamous Epith Cells 0 SEEN, Urine Bacteria 0 SEEN, Urine Mucus 0 SEEN Radiology Impression Chest X-Ray 04/12/21 13:12 IMPRESSION: 1. No radiographic evidence of acute cardiopulmonary disease. 2. Left PICC line catheter removal is the only change since 03/13/2021. Electronically Signed: Kaleb Valencia MD at 13:44 EDT , Service support , Foot X-Ray 04/12/21 13:12 IMPRESSION: No acute osseous abnormality of the left foot and no significant change when compared to 09/28/2019. Electronically Signed: Kaleb Valencia MD at 13:46 EDT , Service support , Assessment & Plan Assessment/Plan (1) Decubitus ulcer of right perineal ischial region, stage 4: PLAN: 35-year-old male admitted with low-grade fever with right large buttock/ischial stage IV decubitus ulcer with history of osteomyelitis. 1. Sepsis (low-grade fever, leukocytosis, lactic acidosis) probably secondary to infected right ischial stage IV decubitus ulcer: Patient does not look septic on clinical exam but with history of multiple organisms in the past, patient is started on IV vancomycin, IV Zosyn. ID and Dr. Granados consult. 2. Chronic right ischial pressure ulceration, stage IV with osteomyelitis with recent excision of right ischial pressure sore with partial ostectomy for osteomyelitis on 02/14/2021. Wound VAC was removed by home health nurse. consult wound nurse for wound dressing. Rest as mentioned above. 3. 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 Patient most bowel through natural route. There is scar tissue of left ischial of previous wound. PT and OT ordered. 4. Type 2 diabetes mellitus-glucose is 135. Previous hemoglobin A1c 6.3%. Acc u-Chek insulin is covered with Humalog sliding scale. Lantus 10 units subcutaneous at bedtime daily. 5. Hypertension-currently normotensive. Not on any antihypertensive medication 6. Hyperlipidemia with obstructive sleep apnea: Patient does not use CPAP at home. CODE STATUS full code Charges/Coding Visit Charges Inpatient E&M: 93555 Init Hosp L3
[2021-04-12] MEDS: 0.9% Normal Saline 1,000 ML 125 ML IV (16:34)
[2021-04-12] MEDS: DAKIN'S SOL HALF STRENGTH (=0.25%) 1 APPLIC TOPICAL ×2 (16:38→21:16)
[2021-04-12 17:00] LABS: Reflex Lactate? Y
--- NOTE | 2021-04-12 17:17 | PCM.RX.CS ---
Consult Pharmacy has been consulted to manage selected antiobiotic: Vancomycin Type of Consult: New start Suspected Infection: Skin/Soft tissue Labs: Sodium 132 mmol/L (136-145) L 04/12/21 12:50 Potassium 4.1 mmol/L (3.5-5.1) 04/12/21 12:50 Chloride 98 mmol/L (98-107) 04/12/21 12:50 Carbon Dioxide 30.0 mmol/L (21.0-32.0) 04/12/21 12:50 Anion Gap 4 (5-15) L 04/12/21 12:50 BUN 5 mg/dL (7-18) L 04/12/21 12:50 Creatinine 0.53 mg/dL (0.70-1.30) L 04/12/21 12:50 Est GFR (MDRD) Af Amer 224 mL/min (>60) 04/12/21 12:50 Est GFR (MDRD) Non-Af 185 mL/min (>60) 04/12/21 12:50 BUN/Creatinine Ratio 9.5 RATIO (10-20) L 04/12/21 12:50 Glucose 135 mg/dL (74-106) H 04/12/21 12:50 Goal Trough: 10-15 mcg/mL Pharmacy Plan for Drug Dosing: NEW START IV VANCOMYCIN Consulting Physician: Delbert Indication: Cellulitis Goal Trough: 10-15 SrCr: 0.53 CrCl: 209 mls/min Comments: pt received a 2000mg x1 dose in the ER 04/12/21 at 1602 Vancomcyin Dose: based on pts weight and renal function, recommend an intial dose of 1750mg q12h starting 04/13/21 at 0400. trough to be drawn before the 4th total dose Pending Level: 04/14/21 at 0330 Pharmacy Service will continue to monitor and adjust dosing as required. Follow-Up Labs: Trough Vancomycin - 04/14/21 at 0330
[2021-04-12 18:31] LABS: Lactic Acid 1.4 mmol/L (0.4-1.9)
[2021-04-12] MEDS: 0.9% Saline Lock 10 ML Syringe IV (21:51)
--- NOTE | 2021-04-13 01:00 | NURSING ---
Late note: Stone SIMON advised me that Veronika (wound nurse) stated we did not need to measure wounds. I still did some brief measurements when I changed dressings.
[2021-04-13 02:06] VITALS: BP 123/72; PULSE 98; RESP 18; TEMP 36.8; O2SAT 97
[2021-04-13 06:39] LABS: Absolute Lymphocyte Count 1.44 X10^3/uL (0.83-4.51); Absolute Neutrophil Count 11.1 X10^3/uL (2.0-7.7); Basophil# 0.07 X10^3/uL; Basophil% 0.5 % (0-1); Eosinophil# 0.06 X10^3/uL; Eosinophils% 0.4 % (0-5); Hematocrit 32.8 % (40-54); Hemoglobin 10.1 g/dL (13.0-16.5); Lymphocyte # 1.44 X10^3/ul (0.83-4.51); Lymphocyte % 10.3 % (19-41); Mean Corp Hgb Conc 30.8 g/dL (32-36); Mean Corpuscular Hgb 25.8 pg (27.0-32.0); Mean Corpuscular Volume 83.7 fL (80-94); Mean Platelet Vol. 10.2 fl (6.2-12.0); Monocyte# 1.18 X10^3/uL; Monocyte% 8.4 % (0-10); NRBC Flagged by Analyzer 0 % (0-5); Neutrophil # 11.13 X10^3/uL (2.7-7.7); Neutrophil % 79.8 % (47-70); Platelet Count 339 K/mm3 (150-450); RBC Distribution Width CV 14.9 % (11.6-14.6); RBC Distribution Width SD 45.3 fl (35.1-43.9); Red Blood Count 3.92 M/mm3 (4.6-6.2)
[2021-04-13 07:04] LABS: Anion Gap 6 (5-15); BUN 6 mg/dL (7-18); BUN/Creat Ratio 17.4 RATIO (10-20); Calcium,Total 8.1 mg/dL (8.5-10.1); Chloride 104 mmol/L (98-107); Creatinine, Serum 0.34 mg/dL (0.70-1.30); EST Glomerular Filtration Rate 305 mL/min (>60); Est Glom Filt Rate - Afr Amer 369 mL/min (>60); Glucose 138 mg/dL (74-106); Magnesium 2.3 mg/dL (1.6-2.6); Phosphorus 4.3 mg/dL (2.5-4.9); Potassium 3.8 mmol/L (3.5-5.1); Sodium Level 136 mmol/L (136-145)
[2021-04-13 07:58] VITALS: O2SAT 94
--- NOTE | 2021-04-13 08:06 | PN.HOSP_ITS ---
Subjective Subjective Patient is a 35-year-old gentleman paraplegic sent to the ED by his wound care nurse with a large right buttock/ischial stage IV decubitus Objective Data Objective Data Vital Signs: Vital Signs Temp Pulse Resp BP Pulse Ox 98.2 F 98 18 123/72 H 97 04/13/21 02:06 04/13/21 02:06 04/13/21 02:06 04/13/21 02:06 04/13/21 02:06 Oxygen Delivery Method Room Air Weight: 129.274 kg Body Mass Index (BMI) 38.6 Intake & Output: Intake and Output for Last 24 Hours 04/11/21 04/12/21 04/13/21 23:59 23:59 23:59 Intake Total 1590 / 1590 1585 / 1585 Output Total 200 / 600 1000 / 1000 Balance 1390 / 990 585 / 585 Lab / Micro Data Result Diagrams: 04/13/21 05:35 04/13/21 05:35 Labs: Laboratory Results - last 24 hr 04/12/21 12:50: WBC 21.0 H, RBC 4.76, Hgb 12.4 L, Hct 39.2 L, MCV 82.4, MCH 26.1 L, MCHC 31.6 L, RDW Std Deviation 44.3 H, RDW Coeff of Darrell 14.7 H, Plt Count 405, MPV 9.9, Immature Gran % (Auto) 0.700, Neut % (Auto) 84.9 H, Lymph % (Auto) 7.6 L, [place] % (Auto) 6.3, Eos % (Auto) 0.1, Baso % (Auto) 0.4, Absolute Neuts (auto) 17.8 H, Absolute Lymphs (auto) 1.60, Nucleated RBC % 0 04/12/21 12:50: PT 15.2 H, INR 1.3, APTT 33.4 04/12/21 12:50: Sodium 132 L, Potassium 4.1, Chloride 98, Carbon Dioxide 30.0, Anion Gap 4 L, BUN 5 L, Creatinine 0.53 L, Estim Creat Clear Calc 209.45, Est GFR (MDRD) Af Amer 224, Est GFR (MDRD) Non-Af 185, BUN/Creatinine Ratio 9.5 L, Glucose 135 H, Calcium 9.3, Total Bilirubin 0.50, AST 39 H, ALT 119 H, Alkaline Phosphatase 196 H, Total Creatine Kinase 36 L, Total Protein 8.4 H, Albumin 2.8 L, Globulin 5.6 H, Albumin/Globulin Ratio 0.5 L 04/12/21 12:50: Lactic Acid 2.1 H* 04/12/21 14:40: Urine Color Yellow, Urine Clarity Clear, Urine pH 8.0, Ur Specific [place] 1.010, Urine Protein Negative, Urine Glucose (UA) Normal, Urine Ketones 5 H, Urine Occult Blood 10 H, Urine Nitrite Negative, Urine Bilirubin Negative, Urine Urobilinogen 1 H, Ur Leukocyte Esterase 25 H, Urine RBC 0-5 SEEN, Urine WBC 10-25 SEEN, Ur Squamous Epith Cells 0 SEEN, Urine Bacteria 0 SEEN, Urine Mucus 0 SEEN 04/12/21 17:40: Lactic Acid 1.4 04/13/21 05:35: WBC 14.0 H, RBC 3.92 L, Hgb 10.1 L, Hct 32.8 L, MCV 83.7, MCH 25.8 L, MCHC 30.8 L, RDW Std Deviation 45.3 H, RDW Coeff of Darrell 14.9 H, Plt Cou nt 339, MPV 10.2, Immature Gran % (Auto) 0.600, Neut % (Auto) 79.8 H, Lymph % (Auto) 10.3 L, [place] % (Auto) 8.4, Eos % (Auto) 0.4, Baso % (Auto) 0.5, Absolute Neuts (auto) 11.1 H, Absolute Lymphs (auto) 1.44, Nucleated RBC % 0 04/13/21 05:35: Sodium 136, Potassium 3.8, Chloride 104, Carbon Dioxide 26.0, Anion Gap 6, BUN 6 L, Creatinine 0.34 L, Estim Creat Clear Calc 326.50, Est GFR (MDRD) Af Amer 369, Est GFR (MDRD) Non-Af 305, BUN/Creatinine Ratio 17.4, Glucose 138 H, Calcium 8.1 L, Phosphorus 4.3, Magnesium 2.3 Radiography Diagnostic Testing: Radiology Impression Chest X-Ray 04/12/21 13:12 IMPRESSION: 1. No radiographic evidence of acute cardiopulmonary disease. 2. Left PICC line catheter removal is the only change since 03/13/2021. Electronically Signed: Kaleb Valencia MD at 13:44 EDT , Service support , Foot X-Ray 04/12/21 13:12 IMPRESSION: No acute osseous abnormality of the left foot and no significant change when compared to 09/28/2019. Electronically Signed: Kaleb Valencia MD at 13:46 EDT , Service support , Physical Exam Narrative GENERAL: cooperative HEENT: Atraumatic; EYES; Anicteric, Normal Conjunctiva NECK; supple, normal thyroid, RESPIRATORY: Diminished to auscultation CARDIOVASCULAR: Regular S1 S2, GI: soft, normoactive bowel sounds, : No Renal angle tenderness; EXTREMITIES: No edema, no clubbing, MUSCULOSKELETAL: Large ulcer over the right buttock area NEURO: Awake; no lateralizing signs. SKIN: No Rash PSYCH; Flat affect Assessment & Plan Assessment/Plan (1) Decubitus ulcer of right perineal ischial region, stage 4: PLAN: Patient is a 35-year-old gentleman paraplegic sent to the ED by his wound care nurse with a large right buttock/ischial stage IV decubitus 1. Sepsis secondary to an infected right ischial stage IV decubitus ulcer ?Patient was started on Zosyn and vancomycin cultures sent. Consult placed to Dr. Granados as well as infectious disease. Consult was also placed wound care gianluca se for dressing changes 2. Chronic right ischial ulceration ?Patient has history of stage IV osteomyelitis for which he underwent excision of the right ischial pressure ulcer with fracture ostectomy for osteomyelitis on 02/14/2021 3. Essential hypertension -Per history currently not on any medication we will continue with monitoring 4. Obstructive sleep apnea ?Patient apparently not being compliant with CPAP therapy 5. Obesity with BMI of 38.7 ?Weight loss advised 6. Paraplegia ?From cavernous hemangioma 7. DVT prophylaxis ?Lovenox CODE STATUS full code Patient is currently on vaccinated against COVID-19. Did educate patient about his significant risk factors any need to get vaccinated Charges/Coding Visit Charges Inpatient E&M: 89268 Subs Hosp L3
[2021-04-13 10:30] VITALS: BP 115/52; PULSE 104; RESP 18; TEMP 36.8; O2SAT 96
[2021-04-13] MEDS: DAKIN'S SOL HALF STRENGTH (=0.25%) 1 APPLIC TOPICAL ×2 (10:53→20:56)
[2021-04-13] MEDS: Enoxaparin 40 MG/0.4 ML Syringe SC (10:56)
[2021-04-13 11:32] LABS: M R Staph aureus DNA By PCR Negative (Negative); Probe Check PASS; Staph aureus DNA By PCR POSITIVE (Negative)
--- NOTE | 2021-04-13 12:55 | CASEMGMT ---
AURORA BUTLER assessment: Face to Face with patient for initial transition planning/care coordination assessment. AURORA BUTLER introduced self and role at [facility], pt voices understanding and consents to assessment. Pt is lying in bed in no distress. Pt is A/Ox4 and answers all questions appropriately. Care providers, pharmacy, and demographics verified. Presentation: Pt sent in by [facility] nurse for buttocks wound Admitting dx: Sepsis, wound infection PCP: Ganesh Specialists: Wound center Preferred Pharmacy: [facility] Insurance: [facility] Prescription Benefit: [employer] Living Will/HPOA: Pt states does not have LW/HPOA and declines AD info. LNOK: Rima Portillo, ex- Living Arrangements: Pt states lives alone in home and states no concerns at home. Pt states is independent with ADL's. Transportation: Pt states drives self and states no transportation concerns. DME/HHC: Pt states has wound vac. Pt is active with [facility] for SN and IMER order placed at this time. Pt states no hx of SNF in the past. Pt states no concerns with going home at time of discharge. Pt is on disability. Pt states does smoke 1/2 pack cigarettes daily but does not drink ETOH. Pt states no further concerns/needs. CM to follow for any further discharge planning/needs. Advised pt to ask for CM if any further questions/concerns/needs arise, voices understanding. Pt Goal: Home Plan: Home w/ IMER HHC. S[place]en AURORA BUTLER
[2021-04-13 16:30] VITALS: BP 110/65; PULSE 101; RESP 18; TEMP 36.7; O2SAT 97
[2021-04-13 20:54] VITALS: BP 104/58; PULSE 98; RESP 18; TEMP 36.7; O2SAT 94
[2021-04-14] VITALS (7 sets, daily range): BP systolic 117–135; BP diastolic 60–81; PULSE 90–99; RESP 18–20; TEMP 36.7–37; O2SAT 96–97
[2021-04-14 04:21] LABS: Absolute Lymphocyte Count 1.28 X10^3/uL (0.83-4.51); Basophil# 0.05 X10^3/uL; Basophil% 0.4 % (0-1); Eosinophil# 0.08 X10^3/uL; Eosinophils% 0.6 % (0-5); Hematocrit 31.9 % (40-54); Hemoglobin 10.1 g/dL (13.0-16.5); Lymphocyte # 1.28 X10^3/ul (0.83-4.51); Lymphocyte % 10.3 % (19-41); Mean Corp Hgb Conc 31.7 g/dL (32-36); Mean Corpuscular Hgb 25.8 pg (27.0-32.0); Mean Corpuscular Volume 81.4 fL (80-94); Mean Platelet Vol. 10.5 fl (6.2-12.0); Monocyte# 0.88 X10^3/uL; Monocyte% 7.1 % (0-10); NRBC Flagged by Analyzer 0 % (0-5); Neutrophil # 10.02 X10^3/uL (2.7-7.7); Neutrophil % 81.1 % (47-70); Platelet Count 347 K/mm3 (150-450); RBC Distribution Width CV 14.8 % (11.6-14.6); RBC Distribution Width SD 43.8 fl (35.1-43.9); Red Blood Count 3.92 M/mm3 (4.6-6.2); White Blood Count 12.4 K/mm3 (4.4-11.0)
[2021-04-14 04:40] LABS: Vancomycin, Trough Level 8.8 ug/mL (5.0-15.0)
[2021-04-14 04:56] LABS: Anion Gap 8 (5-15); BUN 5 mg/dL (7-18); BUN/Creat Ratio 16.4 RATIO (10-20); Calcium,Total 7.7 mg/dL (8.5-10.1); Chloride 105 mmol/L (98-107); EST Glomerular Filtration Rate 351 mL/min (>60); Est Glom Filt Rate - Afr Amer 425 mL/min (>60); Estimated Creatinine Clearance 370.04 ml/min; Glucose 139 mg/dL (74-106); Magnesium 2.3 mg/dL (1.6-2.6); Potassium 3.9 mmol/L (3.5-5.1); Sodium Level 139 mmol/L (136-145)
--- NOTE | 2021-04-14 06:46 | PCM.RX.CS ---
Consult Pharmacy has been consulted to manage selected antiobiotic: Vancomycin Type of Consult: Follow-up Labs: Sodium 139 mmol/L (136-145) 04/14/21 03:45 Potassium 3.9 mmol/L (3.5-5.1) 04/14/21 03:45 Chloride 105 mmol/L (98-107) 04/14/21 03:45 Carbon Dioxide 26.0 mmol/L (21.0-32.0) 04/14/21 03:45 Anion Gap 8 (5-15) 04/14/21 03:45 BUN 5 mg/dL (7-18) L 04/14/21 03:45 Creatinine 0.30 mg/dL (0.70-1.30) L 04/14/21 03:45 Est GFR (MDRD) Af Amer 425 mL/min (>60) 04/14/21 03:45 Est GFR (MDRD) Non-Af 351 mL/min (>60) 04/14/21 03:45 BUN/Creatinine Ratio 16.4 RATIO (10-20) 04/14/21 03:45 Glucose 139 mg/dL (74-106) H 04/14/21 03:45 Vancomycin Trough 8.8 ug/mL (5.0-15.0) 04/14/21 03:45 Microbiology: Microbiology 04/12/21 21:30 Wound - Ischium Gram Stain - Final 04/12/21 14:40 Urine, Catheterized Urine Culture - 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 TROUGH 8.8 INCREASE TO 2000MG Q12H AND FOLLOW UP TROUGH PRIOR TO 4TH DOSE Follow-Up Labs: Trough Vancomycin Labs to be done on [date and time ordered]: 04/16 @ 0762
--- NOTE | 2021-04-14 08:03 | PCM.PN.HOSP ---
Subjective Subjective Patient urine cultures obtained on admission so far positive for gram-negative rods, wound culture still pending Objective Data Objective Data Vital Signs: Vital Signs Temp Pulse Resp BP Pulse Ox 98.4 F 98 18 117/68 96 04/14/21 03:38 04/14/21 03:38 04/14/21 03:38 04/14/21 03:38 04/14/21 03:38 Oxygen Delivery Method Room Air Weight: 129.27 kg Body Mass Index (BMI) 38.6 Intake & Output: Intake and Output for Last 24 Hours 04/12/21 04/13/21 04/14/21 23:59 23:59 23:59 Intake Total 1590 / 1590 2470 / 2470 91.67 / 91.67 Output Total 200 / 600 2800 / 3225 875 / 875 Balance 1390 / 990 -330 / -755 -783.33 / -783.33 Lab / Micro Data Result Diagrams: 04/14/21 03:50 04/14/21 03:45 Labs: Laboratory Results - last 24 hr 04/12/21 21:30: S.aureus Protein A PCR POSITIVE H, MRSA (PCR) Negative 04/14/21 03:45: Vancomycin Trough 8.8 04/14/21 03:45: Sodium 139, Potassium 3.9, Chloride 105, Carbon Dioxide 26.0, Anion Gap 8, BUN 5 L, Creatinine 0.30 L, Estim Creat Clear Calc 370.04, Est GFR (MDRD) Af Amer 425, Est GFR (MDRD) Non-Af 351, BUN/Creatinine Ratio 16.4, Glucose 139 H, Calcium 7.7 L, Magnesium 2.3 04/14/21 03:50: WBC 12.4 H, RBC 3.92 L, Hgb 10.1 L, Hct 31.9 L, MCV 81.4, MCH 25.8 L, MCHC 31.7 L, RDW Std Deviation 43.8, RDW Coeff of Darrell 14.8 H, Plt Count 347, MPV 10.5, Immature Gran % (Auto) 0.500, Neut % (Auto) 81.1 H, Lymph % (Auto) 10.3 L, [place] % (Auto) 7.1, Eos % (Auto) 0.6, Baso % (Auto) 0.4, Absolute Neuts (auto) 10.0 H, Absolute Lymphs (auto) 1.28, Nucleated RBC % 0 Micro: Microbiology 04/12/21 21:30 Wound - Ischium Gram Stain - Final 04/12/21 14:40 Urine, Catheterized Urine Culture - Preliminary GNR 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 SKIN: No Rash PSYCH; Flat affect Assessment & Plan Assessment/Plan (1) Decubitus ulcer of right perineal ischial region, stage 4: PLAN: Patient is a 35-year-old gentleman paraplegic sent to the ED by his wound care nurse with a large right buttock/ischial stage IV decubitus 1. Sepsis secondary to an infected right ischial stage IV decubitus ulcer ?Patient was started on Zosyn and vancomycin cultures sent. Consult placed to Dr. Granados as well as infectious disease. Consult was also placed wound care nurse for dressing changes -04/14/2021; wound cultures pending. 2. Chronic right ischial ulceration ?Patient has history of stage IV osteomyelitis for which he underwent excision of the right ischial pressure ulcer with fracture ostectomy for osteomyelitis on 02/14/2021 3. Acute cystitis ?Secondary to patient self-catheterization. Urine culture so far positive for gram-negative rods remains on broad-spectrum antibiotic therapy for his right ischial stage IV decubitus ulcer which should also cover for any possible cystitis 3. Essential hypertension -Per history currently not on any medication we will continue with monitoring 4. Obstructive sleep apnea ?Patient apparently not being compliant with CPAP therapy 5. Obesity with BMI of 38.7 ?Weight loss advised 6. Paraplegia ?From cavernous hemangioma 7. DVT prophylaxis ?Lovenox CODE STATUS full code Patient is currently unvaccinated against COVID-19. Did educate patient about his significant risk factors any need to get vaccinated Charges/Coding Visit Charges Inpatient E&M: 18981 Subs Hosp L2
[2021-04-14] MEDS: Enoxaparin 40 MG/0.4 ML Syringe SC (09:57)
[2021-04-14] MEDS: DAKIN'S SOL HALF STRENGTH (=0.25%) 1 APPLIC TOPICAL ×2 (15:00→22:55)
[2021-04-15 04:32] VITALS: BP 141/77; PULSE 90; RESP 18; TEMP 36.8; O2SAT 96
[2021-04-15 07:06] LABS: Absolute Neutrophil Count 8.1 X10^3/uL (2.0-7.7); Basophil# 0.05 X10^3/uL; Basophil% 0.5 % (0-1); Eosinophil# 0.08 X10^3/uL; Eosinophils% 0.8 % (0-5); Hematocrit 32.1 % (40-54); Lymphocyte % 13.3 % (19-41); Mean Corp Hgb Conc 31.2 g/dL (32-36); Mean Corpuscular Hgb 25.8 pg (27.0-32.0); Mean Corpuscular Volume 82.9 fL (80-94); Mean Platelet Vol. 10.1 fl (6.2-12.0); Monocyte# 0.79 X10^3/uL; Monocyte% 7.5 % (0-10); NRBC Flagged by Analyzer 0 % (0-5); Neutrophil # 8.13 X10^3/uL (2.7-7.7); Neutrophil % 77.4 % (47-70); Platelet Count 379 K/mm3 (150-450); RBC Distribution Width CV 14.9 % (11.6-14.6); RBC Distribution Width SD 45.3 fl (35.1-43.9); Red Blood Count 3.87 M/mm3 (4.6-6.2); White Blood Count 10.5 K/mm3 (4.4-11.0)
[2021-04-15 08:01] LABS: Anion Gap 9 (5-15); BUN 7 mg/dL (7-18); BUN/Creat Ratio 22.1 RATIO (10-20); Calcium,Total 8.2 mg/dL (8.5-10.1); Chloride 105 mmol/L (98-107); Creatinine, Serum 0.32 mg/dL (0.70-1.30); EST Glomerular Filtration Rate 335 mL/min (>60); Est Glom Filt Rate - Afr Amer 405 mL/min (>60); Glucose 117 mg/dL (74-106); Potassium 3.7 mmol/L (3.5-5.1); Sodium Level 139 mmol/L (136-145)
[2021-04-15] MEDS: DAKIN'S SOL HALF STRENGTH (=0.25%) 1 APPLIC TOPICAL ×2 (08:09→22:32)
--- NOTE | 2021-04-15 08:32 | WOUNDNOTE ---
wound photo: right ischium
--- NOTE | 2021-04-15 08:33 | WOUNDNOTE ---
wound photo: left heel
[2021-04-15 08:44] VITALS: BP 144/69; PULSE 82; RESP 18; TEMP 36.6; O2SAT 97
[2021-04-15] MEDS: Enoxaparin 40 MG/0.4 ML Syringe SC (08:57)
--- NOTE | 2021-04-15 13:10 | PN.HOSP_ITS ---
Subjective Subjective Patient reports that he remains constipated and would like manual disimpaction. He indicates that the wound nurse felt that his wound was possibly worse related to poor VAC placement by home health care. He is concerned as he states that the turnover as far as his nursing care that he has been getting has been high and he suspects that the lack of consistency has contributed to poor VAC placement. He is frustrated as his wounds have gotten worse and he would like to have his flap done as soon as possible. Objective Data Objective Data Vital Signs: Vital Signs Temp Pulse Resp BP Pulse Ox 97.8 F 82 18 144/69 H 97 04/15/21 08:44 04/15/21 08:44 04/15/21 08:44 04/15/21 08:44 04/15/21 08:44 Oxygen Delivery Method Room Air Weight: 129.27 kg Body Mass Index (BMI) 38.6 Intake & Output: Intake and Output for Last 24 Hours 04/13/21 04/14/21 04/15/21 23:59 23:59 23:59 Intake Total 2470 / 2470 2625.00 / 2625.00 1190 / 1190 Output Total 2800 / 3225 2075 / 2675 2900 / 2900 Balance -330 / -755 550.00 / -50.00 -1710 / -1710 Lab / Micro Data Result Diagrams: 04/15/21 06:02 04/15/21 06:02 Labs: Laboratory Results - last 24 hr 04/15/21 06:02: WBC 10.5, RBC 3.87 L, Hgb 10.0 L, Hct 32.1 L, MCV 82.9, MCH 25.8 L, MCHC 31.2 L, RDW Std Deviation 45.3 H, RDW Coeff of Darrell 14.9 H, Plt Count 379, MPV 10.1, Immature Gran % (Auto) 0.500, Neut % (Auto) 77.4 H, Lymph % (Auto) 13.3 L, [place] % (Auto) 7.5, Eos % (Auto) 0.8, Baso % (Auto) 0.5, Absolute Neuts (auto) 8.1 H, Absolute Lymphs (auto) 1.40, Nucleated RBC % 0 04/15/21 06:02: Sodium 139, Potassium 3.7, Chloride 105, Carbon Dioxide 25.0, Anion Gap 9, BUN 7, Creatinine 0.32 L, Estim Creat Clear Calc 346.91, Est GFR (MDRD) Af Amer 405, Est GFR (MDRD) Non-Af 335, BUN/Creatinine Ratio 22.1 H, Glucose 117 H, Calcium 8.2 L Micro: Microbiology 04/12/21 21:30 Wound - Ischium Gram Stain - Final 04/12/21 21:30 Wound - Ischium Wound Culture - Preliminary GNR lactose co supervisor grounds and landscape GNR lactose co supervisor grounds and landscape#2 Staphylococcus aureus Gram positive christiana 04/12/21 14:40 Urine, Catheterized Urine Culture - Final Klebsiella oxytoca Physical Exam Const alert, oriented x3, no apparent distress and average body habitus Constitutional Narrative: Overweight white male lying in bed, appears comfortable, nontoxic Exam Limitations: no limitations HEENT head/scalp atraumatic and moist oral mucous membranes Head and Scalp: normocephalic Resp normal respiratory effort, no retractions, no use of accessory muscles and clear to auscultation bilaterally Auscultation: Negative for crackles, rales, rhonchi or wheezes Cardio regular rate, regular rhythm, S1 normal heart sound, S2 normal heart sound, no murmurs, no rub, no gallops, no clicks and no JVD GI normal to inspection, nondistended, normoactive bowel sounds, soft to palpation, non-tender and non-distended Extremity no clubbing, cyanosis or edema Extremity Narrative: Plantar flexion contractures related to his paraplegia Peripheral Pulses: Yes pulses 2+ throughout Skin skin turgor normal, no jaundice, no petechiae and no mottling Skin Narrative: Sacral wound noted Neuro oriented x3 and CN's II-XII intact bilaterally Neuro Narrative: Bilateral lower extremity complete paraplegia, no upper extremity deficits Sensorium / Orientation: awake and alert Speech: speech normal Psych Psych Narrative: Affect is mildly flat but appropriate given current condition Assessment & Plan Assessment/Plan (1) Severe sepsis: (2) Decubitus ulcer of right perineal ischial region, stage 4: PLAN: Sepsis secondary to infected right ischial stage IV pressure ulcer -Continue current empiric antibiotics(vancomycin/Zosyn) -Wound culture gross shows 2 gram-negative rods that are lactose fermenters, gram-positive christiana, and staph aureus -ID consulted -Plastic surgery consulted -Dr. Granados to evaluate tomorrow as he is not back until 04/16/2021 -Continue wound care -Per discussion with wound nurse patient has some noncompliance issues at baseline with regards to his follow-up with the wound care center but she does agree that the VAC placement may have contributed to worsening of his current ulcer -Patient has had MRSA in his wound previously Constipation -Continue current regimen -Medial disimpaction today Acute Klebsiella cystitis -Self-catheterization at baseline -Urine culture shows Klebsiella -Continue Zosyn--> organism is sensitive to this EDWIGE -Patient is noncompliant with CPAP therapy Paraplegia -This is at approximately T12 level and was from a cavernous hemangioma -Chronic/stable Obesity -BMI is 38.7 -Weight loss is advised -Complicates treatment, prognosis, and outcomes DVT prophylaxis -Continue Lovenox CODE STATUS -Full code Charges/Coding Visit Charges Inpatient E&M: 08731 Subs Hosp L2
--- NOTE | 2021-04-15 14:15 | CHAPLAIN ---
Type of Pastoral Visit _x__ Initial Visit ___ Follow-up Visit ___ On-call Visit ___ General Patient Visit ___ Spiritual Assessment ___ Family Conference ___ Bereavement ___ Rapid Response ___ Code Blue ___ Other (describe below) Pastoral Care Referral From _x__ Patient ___ Family ___ Nurse ___ Physician ___ Commercial Energy Rater ___ Fixing Carpenter ___ Other (describe below) Sacrament/Intervention _x__ Active listening ___ Anointing ___ Mosque ___ Bereavement ___ Communion ___ Shireen exploration ___ ___ Life review ___ Prayer ___ Reconciliation ___ Sacrament of Sick _x__ Supportive presence ___ Wedding ___ Other (describe below) Pastoral Comments patient is a return admission and has been seen before; pt gives some update; pt talks about the bees outside his window; pt goal is to get home; no other needs
--- NOTE | 2021-04-15 15:32 | CT_ITS ---
HISTORY: Recurrent osteomyelitis of the pelvis, paraplegia EXAMINATION: CT Abdomen And Pelvis W/ Contrast Injection TECHNIQUE: Helically acquired images were obtained of the abdomen and pelvis following oral and IV contrast. A radiation dose optimization technique was used for this scan. IV Contrast dosage and agent: 100mL Isovue-300 Oral contrast: Gas COMPARISON: 02/13/21 FINDINGS: LOWER CHEST: Lung bases are clear. No cardiomegaly or pericardial effusion. LIVER: Homogeneous. No focal mass. GALLBLADDER AND BILIARY TREE: No calcified gallstones. No gallbladder distension or wall edema. No intra- or extrahepatic biliary ductal dilation. PANCREAS: No focal cystic or solid mass. SPLEEN: Normal size without focal cystic or solid mass. ADRENAL GLANDS: No nodules. KIDNEYS AND URETERS: Normal renal size and position. No hydronephrosis. PERITONEUM: No ascites or free air. BOWEL: Normal appendix. No stomach or bowel distension. No focal inflammatory bowel wall changes. LYMPH NODES: No enlarged mesenteric or retroperitoneal lymph nodes. VESSELS: Aorta is non-dilated. URINARY BLADDER: Stable diffuse wall thickening with partial distention. REPRODUCTIVE ORGANS: No pelvic masses. BONES: Persistent or recurrent decubitus ulcer posterior and inferior to the right ischial tuberosity with stable destructive changes of the posterior right ischium tuberosity. Persistent stranding in the posterior midline extending to the rectum and distal coccyx with scattered small gas densities again suggesting abscess. The distal coccygeal segments are absent as on prior study. CT/Abdomen/Pelvis WITH Contrast IMPRESSION: Persistent or recurrent right sided decubitus ulcer adjacent to the destructive changes in the right initial tuberosity. Findings consistent with osteomyelitis, acute and/or chronic. Persistent changes of soft tissue abscess extending to the rectum in the distal coccyx with destruction of the distal coccygeal segments. Overall appearance is minimally changed from the prior study. Individualized dose optimization techniques were used for this CT. at 1912 Reported and signed by: Prabhakar Davison MD Electronically Signed: Prabhakar Davison MD at 19:11 EDT Tel , Service support ,
--- NOTE | 2021-04-15 15:34 | PCM.CONS.GEN ---
Assessment & Plan Assessment/Plan (1) Osteomyelitis of pelvis: PLAN: Will check CT abd/pelvis. Plastic surgery consulted. Wound cx with GNR x2, staph aureus, GPR. Ucx with small amount klebs. On vanc/cefepime/flagyl. Wbc much improved this admit. Did have some neutropenia while on long course vanc/zosyn at end of February. Completed course with vanc/tori 03/28/21. Will follow, thank you HPI Consult Data Date of Consult: 04/15/21 HPI Narrative HPI Narrative: GISELE KAY, is a 35 M with paraplegia, recurrent sacral osteo. Completed vanc/tori . Now with worsening of wound. Feeling fine, no fever, no n/v/d. Sent to ED, admitted, started on vanc/zosyn. Unvaccinated for covid. Full ROS performed and neg except as noted above. ON LICENSE OF [facility] Medical History (Updated 04/15/21 @ 15:[address] 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 Personal history of Methicillin resistant Staphylococcus aureus infection Pressure sore of left ischium, stage 4 Recurrent infections Right ischial pressure sore, stage 4 Sleep apnea Smoker Smoker Type 2 diabetes mellitus Urinary incontinence, nocturnal enuresis UTI (urinary tract infection) Home Medications NK 04/12/21 [History Last Taken Unknown] Allergy/AdvReac Type Severity Reaction Status Date / Time amoxicillin AdvReac Diarrhea Verified 04/12/21 11:21 Family History Father Hypertension Mother Hypertension Surgical History Hx of tonsillectomy Status post repair of complex wound Social History household members: spouse Smoking Status: Current every day smoker tobacco type: cigarettes Tobacco: How many years used: 19 alcohol intake: never substance use type: does not use what type of physical activity do you participate in: none Physical Exam Const alert, oriented x3 and no apparent distress General Appearance: cooperative Exam Limitations: no limitations Nutritional Appearance: obese HEENT normocephalic and head/scalp atraumatic Eyes PERRL and EOMs intact bilaterally Neck supple and No nodes Resp normal air movement and clear to auscultation bilaterally Cardio regular rate and regular rhythm GI normal to inspection, nondistended, normoactive bowel sounds Extremity General Extremity: edema Skin Skin Narrative: reviewed wound photos Neuro CN's II-XII intact bilaterally Lab / Micro Data Result Diagrams: 04/15/21 06:02 04/15/21 06:02 Labs: Laboratory Results - last 24 hr 04/15/21 06:02: WBC 10.5, RBC 3.87 L, Hgb 10.0 L, Hct 32.1 L, MCV 82.9, MCH 25.8 L, MCHC 31.2 L, RDW Std Deviation 45.3 H, RDW Coeff of Darrell 14.9 H, Plt Count 379, MPV 10.1, Immature Gran % (Auto) 0.500, Neut % (Auto) 77.4 H, Lymph % (Auto) 13.3 L, [place] % (Auto) 7.5, Eos % (Auto) 0.8, Baso % (Auto) 0.5, Absolute Neuts (auto) 8.1 H, Absolute Lymphs (auto) 1.40, Nucleated RBC % 0 04/15/21 06:02: Sodium 139, Potassium 3.7, Chloride 105, Carbon Dioxide 25.0, Anion Gap 9, BUN 7, Creatinine 0.32 L, Estim Creat Clear Calc 346.91, Est GFR (MDRD) Af Amer 405, Est GFR (MDRD) Non-Af 335, BUN/Creatinine Ratio 22.1 H, Glucose 117 H, Calcium 8.2 L Micro: Microbiology 04/12/21 21:30 Wound - Ischium Gram Stain - Final 04/12/21 21:30 Wound - Ischium Wound Culture - Preliminary GNR lactose botany technician GNR lactose botany technician#2 Staphylococcus aureus Gram positive christiana
--- NOTE | 2021-04-15 16:09 | CASEMGMT ---
requests this RN CM call the [facility] and ask if there is a possibility of more consistent staff performing pt wound vac. Also spoke with Veronika wound nurse who suggests that the foam be placed down into the wound. TC to Mana chaves at [facility] and made aware of the above. She states she will discuss with clinical terminal operations manager. Asked to please call this RN CM back if there are any questions.
[2021-04-15 16:15] VITALS: BP 157/72; PULSE 80; RESP 18; TEMP 36.6; O2SAT 100
[2021-04-15] MEDS: 0.9% Saline Lock 10 ML Syringe IV (18:31)
[2021-04-15 22:40] VITALS: BP 148/75; PULSE 95; RESP 18; TEMP 36.9; O2SAT 97
[2021-04-15] MEDS: Nystatin Powder 15gm Bottle 1 APPLIC TOPICAL (22:46)
[2021-04-16 04:30] VITALS: BP 140/75; PULSE 82; RESP 16; TEMP 36.8; O2SAT 100
[2021-04-16] MEDS: Nystatin Powder 15gm Bottle 1 APPLIC TOPICAL ×3 (05:21→21:54)
[2021-04-16 06:12] LABS: Anion Gap 8 (5-15); BUN 7 mg/dL (7-18); BUN/Creat Ratio 17.9 RATIO (10-20); Calcium,Total 8.6 mg/dL (8.5-10.1); Chloride 103 mmol/L (98-107); Creatinine, Serum 0.39 mg/dL (0.70-1.30); EST Glomerular Filtration Rate 265 mL/min (>60); Est Glom Filt Rate - Afr Amer 321 mL/min (>60); Estimated Creatinine Clearance 284.64 ml/min; Glucose 129 mg/dL (74-106); Potassium 3.7 mmol/L (3.5-5.1); Sodium Level 138 mmol/L (136-145)
[2021-04-16 06:20] LABS: Absolute Lymphocyte Count 1.25 X10^3/uL (0.83-4.51); Absolute Neutrophil Count 7.5 X10^3/uL (2.0-7.7); Basophil# 0.05 X10^3/uL; Basophil% 0.5 % (0-1); Eosinophil# 0.09 X10^3/uL; Eosinophils% 0.9 % (0-5); Hematocrit 32.7 % (40-54); Hemoglobin 10.5 g/dL (13.0-16.5); Lymphocyte # 1.25 X10^3/ul (0.83-4.51); Lymphocyte % 12.9 % (19-41); Mean Corp Hgb Conc 32.1 g/dL (32-36); Mean Corpuscular Hgb 25.9 pg (27.0-32.0); Mean Corpuscular Volume 80.5 fL (80-94); Mean Platelet Vol. 9.6 fl (6.2-12.0); Monocyte# 0.77 X10^3/uL; NRBC Flagged by Analyzer 0 % (0-5); Neutrophil # 7.47 X10^3/uL (2.7-7.7); Neutrophil % 77.4 % (47-70); Platelet Count 408 K/mm3 (150-450); RBC Distribution Width CV 14.5 % (11.6-14.6); RBC Distribution Width SD 42.7 fl (35.1-43.9); Red Blood Count 4.06 M/mm3 (4.6-6.2); White Blood Count 9.7 K/mm3 (4.4-11.0)
--- NOTE | 2021-04-16 08:50 | PHA.PHARE_ITS ---
Consult Pharmacy has been consulted to manage selected antiobiotic: Vancomycin Type of Consult: Follow-up Suspected Infection: Skin/Soft tissue Labs: Sodium 138 mmol/L (136-145) 04/16/21 03:50 Potassium 3.7 mmol/L (3.5-5.1) 04/16/21 03:50 Chloride 103 mmol/L (98-107) 04/16/21 03:50 Carbon Dioxide 27.0 mmol/L (21.0-32.0) 04/16/21 03:50 Anion Gap 8 (5-15) 04/16/21 03:50 BUN 7 mg/dL (7-18) 04/16/21 03:50 Creatinine 0.39 mg/dL (0.70-1.30) L 04/16/21 03:50 Est GFR (MDRD) Af Amer 321 mL/min (>60) 04/16/21 03:50 Est GFR (MDRD) Non-Af 265 mL/min (>60) 04/16/21 03:50 BUN/Creatinine Ratio 17.9 RATIO (10-20) 04/16/21 03:50 Glucose 129 mg/dL (74-106) H 04/16/21 03:50 Microbiology: Microbiology 04/12/21 21:30 Wound - Ischium Gram Stain - Final 04/12/21 21:30 Wound - Ischium Wound Culture - Preliminary GNR lactose aircraft rigging and controls mechanic GNR lactose aircraft rigging and controls mechanic#2 Staphylococcus aureus Gram positive christiana 04/12/21 14:40 Urine, Catheterized Urine Culture - Final Klebsiella oxytoca Goal Trough: 10-15 mcg/mL Pharmacy Plan for Drug Dosing: VANCOMYCIN LEVEL RECEIVED Current Vancomycin Dose: 2000mg q12h (,16) Number of Doses Received: Vancomycin Level: 14.0 Hours Since Last Dose: 10 Renal Function: SrCr 0.39 Renal Function Trend: currently stable Lab/Micro: Vancomycin Plan/Comments: 10 hour trough level resulted within ordered goal ran ge of 10-15. recommend continuing current dose and rechecking trough in 4 more doses Pending Level: 04/18/21 at 0330 Pharmacy Service will continue to monitor and adjust dosing as required. Follow-Up Labs: Trough Vancomycin - 04/18/21 at 0330
[2021-04-16 09:03] VITALS: BP 145/84; PULSE 82; RESP 18; TEMP 36.4; O2SAT 98
[2021-04-16] MEDS: Enoxaparin 40 MG/0.4 ML Syringe SC (09:08)
[2021-04-16] MEDS: DAKIN'S SOL HALF STRENGTH (=0.25%) 1 APPLIC TOPICAL ×2 (10:05→21:54)
--- NOTE | 2021-04-16 13:41 | PN.HOSP_ITS ---
Subjective Subjective Patient states Dr. Granados has not yet seen him. Both peripheral IVs went bad last night and new ones had to be placed. Patient is still questioning whether or not any surgical intervention will be needed and as we discussed I need surgery to evaluate him prior to answering these questions. Objective Data Objective Data Vital Signs: Vital Signs Temp Pulse Resp BP Pulse Ox 97.6 F L 82 18 145/84 H 98 04/16/21 09:03 04/16/21 09:03 04/16/21 09:03 04/16/21 09:03 04/16/21 09:03 Oxygen Delivery Method Room Air Weight: 129.27 kg Body Mass Index (BMI) 38.6 Intake & Output: Intake and Output for Last 24 Hours 04/14/21 04/15/21 04/16/21 23:59 23:59 23:59 Intake Total 2625.00 / 2625.00 2330 / 2730 2040 / 2040 Output Total 2075 / 2675 3375 / 4375 2575 / 2575 Balance 550.00 / -50.00 -1045 / -1645 -535 / -535 Lab / Micro Data Result Diagrams: 04/16/21 03:50 04/16/21 03:50 Labs: Laboratory Results - last 24 hr 04/16/21 03:50: WBC 9.7, RBC 4.06 L, Hgb 10.5 L, Hct 32.7 L, MCV 80.5, MCH 25.9 L, MCHC 32.1, RDW Std Deviation 42.7, RDW Coeff of Darrell 14.5, Plt Count 408, MPV 9.6, Immature Gran % (Auto) 0.300, Neut % (Auto) 77.4 H, Lymph % (Auto) 12.9 L, [place] % (Auto) 8.0, Eos % (Auto) 0.9, Baso % (Auto) 0.5, Absolute Neuts (auto) 7.5, Absolute Lymphs (auto) 1.25, Nucleated RBC % 0 04/16/21 03:50: Sodium 138, Potassium 3.7, Chloride 103, Carbon Dioxide 27.0, Anion Gap 8, BUN 7, Creatinine 0.39 L, Estim Creat Clear Calc 284.64, Est GFR (M DRD) Af Amer 321, Est GFR (MDRD) Non-Af 265, BUN/Creatinine Ratio 17.9, Glucose 129 H, Calcium 8.6 04/16/21 03:50: Vancomycin Trough 14.0 Micro: Microbiology 04/12/21 21:30 Wound - Ischium Gram Stain - Final 04/12/21 21:30 Wound - Ischium Wound Culture - Final Klebsiella oxytoca Escherichia coli Staphylococcus aureus Corynebacterium striatum 04/12/21 14:40 Urine, Catheterized Urine Culture - Final Klebsiella oxytoca Radiography Diagnostic Testing: Radiology Impression Abdomen/Pelvis CT 04/15/21 15:32 IMPRESSION: Persistent or recurrent right sided decubitus ulcer adjacent to the destructive changes in the right initial tuberosity. Findings consistent with osteomyelitis, acute and/or chronic. Persistent changes of soft tissue abscess extending to the rectum in the distal coccyx with destruction of the distal coccygeal segments. Overall appearance is minimally changed from the prior study. Individualized dose optimization techniques were used for this CT. at 1912 Reported and signed by: Prabhakar Davison MD Electronically Signed: Prabhakar Davison MD at 19:11 EDT Tel , Service support , Physical Exam Narrative GENERAL: cooperative HEENT: Atraumatic; EYES; Anicteric, Normal Conjunctiva NECK; supple, normal thyroid, RESPIRATORY: Diminished to auscultation CARDIOVASCULAR: Regular S1 S2, GI: soft, normoactive bowel sounds, : No Renal angle tenderness; EXTREMITIES: No edema, no clubbing, MUSCULOSKELETAL: Large ulcer over the right buttock area NEURO: Awake; no lateralizing signs. SKIN: No Rash PSYCH; Flat affect Const alert, oriented x3, no apparent distress and average body habitus Constitutional Narrative: Overweight white male lying in bed, appears comfortable, nontoxic, nursing at bedside Exam Limitations: no limitations Nutritional Appearance: overweight HEENT head/scalp atraumatic and moist oral mucous membranes Head and Scalp: normocephalic Resp normal respiratory effort, no retractions, no use of accessory muscles and clear to auscultation bilaterally Auscultation: Negative for crackles, rales, rhonchi or wheezes Cardio regular rate, regular rhythm, S1 normal heart sound, S2 normal heart sound, no murmurs, no rub, no gallops, no clicks and no JVD GI normal to inspection, nondistended, normoactive bowel sounds, soft to palpation, non-tender and non-distended Extremity no clubbing, cyanosis or edema Extremity Narrative: Plantar flexion contractures related to his paraplegia Skin skin turgor normal, no jaundice, no petechiae and no mottling Skin Narrative: Sacral wound noted Neuro oriented x3 and CN's II-XII intact bilaterally Neuro Narrative: Bilateral lower extremity complete paraplegia, no upper extremity deficits Sensorium / Orientation: awake and alert Speech: speech normal Assessment & Plan Assessment/Plan (1) Severe sepsis: (2) Decubitus ulcer of right perineal ischial region, stage 4: PLAN: Sepsis secondary to infected right ischial stage IV pressure ulcer -Continue current empiric antibiotics(vancomycin/Zosyn) -Wound culture gross shows 2 gram-negative rods that are lactose fermenters, gram-positive christiana, and staph aureus -ID following and case discussed--> patient will need antibiotics at discharge and PICC placement -PICC placement ordered -Plastic surgery consulted -Dr. Granados to evaluate today--> awaiting input -Continue wound care -Per discussion with wound nurse patient has some noncompliance issues at baseline with regards to his follow-up with the wound care center but she does agree that the VAC placement may have contributed to worsening of his current ulcer -These issues have been draw addressed with home health care and they are trying to achieve more consistency for him after discharge -Patient has had MRSA in his wound previously -Hopeful for discharge in the next 24 to 48 hours Constipation -Continue current regimen -Disimpaction by nursing done yesterday Acute Klebsiella cystitis -Self-catheterization at baseline -Urine culture shows Klebsiella -Continue Zosyn--> organism is sensitive to this EDWIGE -Patient is noncompliant with CPAP therapy Paraplegia -This is at approximately T12 level and was from a cavernous hemangioma -Chronic/stable Obesity -BMI is 38.7 -Weight loss is advised -Complicates treatment, prognosis, and outcomes DVT prophylaxis -Continue Lovenox CODE STATUS -Full code Charges/Coding Visit Charges Inpatient E&M: 41980 Subs Hosp L2
--- NOTE | 2021-04-16 14:05 | PCM.PN.SRG ---
Subjective Subjective Postop #[id number] Patient known to me. He had surgery on 02/14/21 where he underwent excision right ischial pressure sore, Stage IV, with partial ostectomy for osteomyelitis. Soft tissue culture showed Proteus mirabilis, MRSA, Methicillin resistant Staphylococcus capitis, Streptococcus mitis/oralis, Corynebacterium jeikeium. Bone culture showed Streptococcus mitis/oralis, Staphylococcus capitis, and Corynebacterium jeikeium. Pathology was positive for osteomyelitis. He was treated with Vancomycin, Cefepime, and Flagyl. In late February, he was admitted for neutropenic fever. Antibiotics were changed to Vancomycin and Meropenem. He was recently admitted on 04/12/21 with fever and odor coming from the right ischial pressure sore. CT was done on 04/15/21. It showed Persistent or recurrent right sided decubitus ulcer adjacent to the destructive changes in the right initial tuberosity. Findings consistent with osteomyelitis, acute and/or chronic. Persistent changes of soft tissue abscess extending to the rectum in the distal coccyx with destruction of the distal coccygeal segments. Overall appearance is minimally changed from the prior study. Individualized dose optimization techniques were used for this CT. He was placed on Vancomycin and Cefepime and Flagyl. I was asked to evaluate this patient for surgical options for treatment. Objective Data Objective Data Vital Signs: Vital Signs Temp Pulse Resp BP Pulse Ox 97.6 F L 82 18 145/84 H 98 04/16/21 09:03 04/16/21 09:03 04/16/21 09:03 04/16/21 09:03 04/16/21 09:03 Oxygen Delivery Method Room Air Weight: 284 lb 15.865 oz Body Mass Index (BMI) 38.6 Intake & Output: Intake and Output for Last 24 Hours 04/14/21 04/15/21 04/16/21 23:59 23:59 23:59 Intake Total 2625.00 / 2625.00 2330 / 2730 2040 / 2040 Output Total 2075 / 2675 3375 / 4375 2575 / 2575 Balance 550.00 / -50.00 -1045 / -1645 -535 / -535 Lab / Micro Data Attestation: I reviewed the patient's lab results. Result Diagrams: 04/17/21 06:40 04/17/21 06:40 Labs: Laboratory Results - last 24 hr 04/16/21 03:50: WBC 9.7, RBC 4.06 L, Hgb 10.5 L, Hct 32.7 L, MCV 80.5, MCH 25.9 L, MCHC 32.1, RDW Std Deviation 42.7, RDW Coeff of Darrell 14.5, Plt Count 408, MPV 9.6, Immature Gran % (Auto) 0.300, Neut % (Auto) 77.4 H, Lymph % (Auto) 12.9 L, [place] % (Auto) 8.0, Eos % (Auto) 0.9, Baso % (Auto) 0.5, Absolute Neuts (auto) 7.5, Absolute Lymphs (auto) 1.25, Nucleated RBC % 0 04/16/21 03:50: Sodium 138, Potassium 3.7, Chloride 103, Carbon Dioxide 27.0, Anion Gap 8, BUN 7, Creatinine 0.39 L, Estim Creat Clear Calc 284.64, Est GFR (MDRD) Af Amer 321, Est GFR (MDRD) Non-Af 265, BUN/Creatinine Ratio 17.9, Glucose 129 H, Calcium 8.6 04/16/21 03:50: Vancomycin Trough 14.0 Micro: Microbiology 04/12/21 21:30 Wound - Ischium Gram Stain - Final 04/12/21 21:30 Wound - Ischium Wound Culture - Final Klebsiella oxytoca Escherichia coli Staphylococcus aureus Corynebacterium striatum 04/12/21 14:40 Urine, Catheterized Urine Culture - Final Klebsiella oxytoca Radiography Diagnostic Testing: Radiology Impression Abdomen/Pelvis CT 04/15/21 15:32 IMPRESSION: Persistent or recurrent right sided decubitus ulcer adjacent to the destructive changes in the right initial tuberosity. Findings consistent with osteomyelitis, acute and/or chronic. Persistent changes of soft tissue abscess extending to the rectum in the distal coccyx with destruction of the distal coccygeal segments. Overall appearance is minimally changed from the prior study. Individualized dose optimization techniques were used for this CT. at 1912 Reported and signed by: Prabhakar Davison MD Electronically Signed: Prabhakar Davison MD at 19:11 EDT Tel , Service support , Physical Exam Narrative General - Alert and Oriented HEENT - PERRL. EOMI. Neck - Supple and nontender. Abdomen - Soft and nondistended. Buttock - Right ischial pressure sore is stable. Some granulation tissue noted. No purulent drainage seen. Neuro - CN II-XII grossly intact. Psych - Normal mood and affect. 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 He is presently on Vancomycin, Cefepime, and Flagyl. CT reviewed. There appears to be a fluid collection/abscess that is extending from the right ischial area toward the coccyx. With his multiple organisms present, he will need further operative intervention with excision of this right ischial pressure sore with extension toward the coccyx. Discussed with the patient that the wound will be larger than before because of this extension. Without this extension, the size of the right ischial pressure sore would be unchanged as I would be more interested in the deeper tissue and the bone. He voiced understanding and wishes to proceed. Will schedule the surgery for tomorrow under general anesthesia. Soft tissue and bone cultures will be obtained. A positive culture will necessitate antibiotic therapy. Patient was informed of the risks and complications of the procedure including alternatives to surgery. These were discussed with the patient personally. Patient voices understanding and wishes to proceed. If there is more infection present then anticipated, then a discussion will be made with him postoperatively regarding the need for a diverting colostomy.
[2021-04-16 15:52] VITALS: BP 133/75; PULSE 80; RESP 16; TEMP 36.6; O2SAT 98
--- NOTE | 2021-04-16 16:04 | PCM.PN.ID ---
Physical Exam Narrative Feeling ok, no fever Const alert and no apparent distress General Appearance: cooperative Resp normal air movement and clear to auscultation bilaterally Cardio regular rate and regular rhythm GI normal to inspection, nondistended, normoactive bowel sounds Extremity Extremity Narrative: no new rash ID ID: Route of nutrition/ use of supplements: [] Nutritional Intake: [] IV Site: [] Lee Catheter: [] Assessment & Plan Assessment/Plan (1) Osteomyelitis of pelvis: PLAN: CT with ongoing osteo, possible abscess. Plastic surgery consulted. Wound cx with GNR x2, staph aureus, GPR. Ucx with small amount klebs. On vanc/cefepime/flagyl. Wbc much improved this admit. Did have some neutropenia while on long course vanc/zosyn at end of February. Completed course with vanc/tori 03/28/21. Will follow
[2021-04-16 21:09] VITALS: BP 147/64; PULSE 86; RESP 16; TEMP 36.9; O2SAT 96
[2021-04-16] MEDS: 0.9% Saline Lock 10 ML Syringe IV (21:54)
[2021-04-16 22:00] VITALS: PULSE 84
[2021-04-17] MEDS: 0.9% Saline Lock 10 ML Syringe IV ×2 (04:27→18:45)
[2021-04-17 04:39] VITALS: BP 119/63; PULSE 75; RESP 20; TEMP 36.8; O2SAT 96
--- NOTE | 2021-04-17 06:00 | EKG12_ITS ---
Test Reason : PREOP Blood Pressure : / mmHG Vent. Rate : 082 BPM Atrial Rate : 082 BPM P-R Int : 144 ms QRS Dur : 084 ms QT Int : 386 ms P-R-T Axes : 060 069 063 degrees QTc Int : 450 ms Normal sinus rhythm Normal ECG When compared with ECG of 14-FEB-2021 04:53, No significant change was found Confirmed by LOLLY RAE, CHAN ([id number]), editorial clerk MACKENZIE OLEARY ([id number]) on 04/18/2021 8:29:03 AM Referred By: DAYDAY Confirmed By:CHAN AMBROCIO MD
[2021-04-17 07:32] LABS: Absolute Lymphocyte Count 1.18 X10^3/uL (0.83-4.51); Absolute Neutrophil Count 7.9 X10^3/uL (2.0-7.7); Basophil# 0.07 X10^3/uL; Basophil% 0.7 % (0-1); Eosinophil# 0.09 X10^3/uL; Eosinophils% 0.9 % (0-5); Hematocrit 35.7 % (40-54); Lymphocyte # 1.18 X10^3/ul (0.83-4.51); Lymphocyte % 11.7 % (19-41); Mean Corp Hgb Conc 30.8 g/dL (32-36); Mean Corpuscular Hgb 25.8 pg (27.0-32.0); Mean Corpuscular Volume 83.6 fL (80-94); Mean Platelet Vol. 9.7 fl (6.2-12.0); Monocyte# 0.77 X10^3/uL; Monocyte% 7.6 % (0-10); NRBC Flagged by Analyzer 0 % (0-5); Neutrophil # 7.94 X10^3/uL (2.7-7.7); Neutrophil % 78.6 % (47-70); Platelet Count 400 K/mm3 (150-450); RBC Distribution Width CV 14.7 % (11.6-14.6); Red Blood Count 4.27 M/mm3 (4.6-6.2); White Blood Count 10.1 K/mm3 (4.4-11.0)
[2021-04-17 08:07] VITALS: BP 158/71; PULSE 87; RESP 16; TEMP 36.7; O2SAT 96
[2021-04-17 08:09] VITALS: PULSE 86; O2SAT 96
[2021-04-17 08:14] LABS: Anion Gap 8 (5-15); BUN 11 mg/dL (7-18); BUN/Creat Ratio 25.9 RATIO (10-20); Calcium,Total 8.5 mg/dL (8.5-10.1); Chloride 105 mmol/L (98-107); Creatinine, Serum 0.42 mg/dL (0.70-1.30); EST Glomerular Filtration Rate 239 mL/min (>60); Est Glom Filt Rate - Afr Amer 290 mL/min (>60); Glucose 122 mg/dL (74-106); Potassium 3.8 mmol/L (3.5-5.1); Sodium Level 140 mmol/L (136-145)
--- NOTE | 2021-04-17 08:44 | WOUNDNOTE ---
Pt states he is having second thoughts about having surgery today. pt states he does not want his wound to be bigger. encouraged patient to voice his concerns to Dr Granados prior to surgery.
[2021-04-17 09:00] VITALS: BP 142/84; PULSE 87; RESP 16; TEMP 36.8; O2SAT 98
[2021-04-17 09:31] VITALS: BMI 38.6
--- NOTE | 2021-04-17 11:28 | CASEMGMT ---
Addendum entered by Destini Mckeon 04/17/21 16:02: Received final script for ertapenem IV. Faxed to PAULETTE and to Mana at [facility]. Received tc from Maribeth at [facility] who states pt cost with supplies and drug will be $312.85/wk. AURORA BUTLER in to pt room. Pt is agreeable to this. He states he made a pmt of $2500 today. TC to Mana at [facility], she is aware of new med to start tomorow and of dressing changes ordered. Pt nurse will assist with the dressing changes as well as HHC. Original Note: Received notification from charge nurse that pt will dc today on IV atb. AURORA BUTLER in to pt room. Pt is agreeable to [facility] again and to continue with [facility]. TC to [facility], spoke with Mana, sent preliminary information and will fax final IV script once ID rounds.
[2021-04-17] MEDS: DAKIN'S SOL HALF STRENGTH (=0.25%) 1 APPLIC TOPICAL (11:32)
[2021-04-17 13:25] VITALS: BP 129/74; PULSE 82; RESP 16; TEMP 36.4; O2SAT 97
[2021-04-17] MEDS: Nystatin Powder 15gm Bottle 1 APPLIC TOPICAL (13:43)
--- NOTE | 2021-04-17 15:25 | PCM.PN.BLA ---
Progress Note Patient was scheduled for operative intervention today, 04/17/21, with further excision of his right ischial pressure sore and partial ostectomy for osteomyelitis. Also would evaluate extension of the right ischial pressure sore toward the coccyx as was noted on the CT with suggestion of an abscess. Patient states he wants to hold off on surgery at this time as he is interested in seeking a second opinion. By postponing the surgery to obtain a second opinion increases the risk of the pressure sore worsening which can lead to worsening of the infection with spread to the hip joint, amputation with hip disarticulation, and . Patient voices understanding and wishes to proceed with the plan of obtaining a second opinion. I stressed to him the importance of obtaining the second opinion in a timely fashion. In the meantime, [facility]. He will be discharged on Ertapenem for the recent wound culture that showed Staphylococcus aureus, Klebsiella oxytoca, E. coli, and Corynebacterium striatum.
--- NOTE | 2021-04-17 15:37 | DS.PCM_ITS ---
Providers Date of Admission: 04/12/21 Primary Care Physician: Dr. Lee Andersen MD Consultations 04/12/21 16:04 Consult: Onc/Wound/contracting executive Routine Comment: Reason for Consult:: Right buttock ulcer Consult: Plastic Surgery Routine Consulting Provider: Solitario Granados Reason for Consult: Non healing buttock ulcer EMERGENT Consult: No Notified: Yes Date Notified: 04/16/21 Time Notified: 12:46 Method of Notification: Page Consult: Vascular Surgery Routine Consulting Provider: Víctor Mccallum Reason for Consult: acute on chronic right buttock ulcer EMERGENT Consult: No Notified: Yes Date Notified: 04/15/21 Time Notified: 07:34 Method of Notification: Verbal Comments:: Left voicemail Reason For Visit: SEPSIS, WOUND INFECTION Diagnosis Discharge Diagnosis (1) Osteomyelitis of pelvis: Status: Acute Code(s): M86.9 - Osteomyelitis, unspecified Medications at Discharge Home Medications ertapenem 1 g IV Q24H 40 Days #40 ea 04/17/21 Hospital Course Operations None Procedures None and PICC line placement Summary of Care Provided Minutes Spent on Discharge: 39 Hospital Course: Mr. Portillo is a 35-year-old white male who presented to the emergency department at [facility] on 04/12/2021 for worsening sacral pressure ulcer. The patient has a history of paraplegia and has developed this ulcer as a result of pressure. On admission he reported fever and chills however he had not measured his temperature at home. Previous cultures were positive for MRSA, Proteus, Acinetobacter, and Clostridium and he had just completed a course on 03/28/2021 of IV meropenem and vancomycin. He recently underwent a partial ostectomy and soft tissue debridement on 02/09/2021 and was found to have sacral osteomyelitis. He has been having home health come in and a wound VAC has been in place. He was placed on IV antibiotics and consultations to plastic surgery and infectious disease were made. He was initially maintained on broad-spectrum antibiotics. A repeat CT scan of his abdomen and pelvis was performed on 04/15/2021 and showed persistent right-sided decubitus ulcer with destructive changes in the right ischial tuberosity consistent with OM-likely chronic and persistent changes of the soft tissue with abscess extending to the rectum of the distal coccyx with destruction of the distal coccygeal segments that was minimally changed from previous studies. B lood cultures were negative. He had a urine culture positive for Klebsiella. His wound culture was positive for Klebsiella, E. coli, MSSA, and corynebacterium. ID was able to narrow his antibiotics for ertapenem and recommended continued treatment with IV ertapenem upon discharge. A PICC line was placed on 04/16/2021. Plastic surgery did evaluate the patient and recommended surgery although the patient had second thoughts and wanted a second opinion and he therefore was referred to Dr. Maxwell at [facility] an appointment was made for him on 04/22/2021 at 10 AM. He was discharged in stable condition with home health care for infusion and continued management of his wound until follow-up. 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 Obesity Physical Exam Const alert, oriented x3, no apparent distress and average body habitus Constitutional Narrative: Overweight white male lying in bed, appears comfortable, nontoxic, nursing and mother at bedside General Appearance: cooperative, comfortable, well kempt and well developed Orientation / Consciousness: awake Exam Limitations: no limitations Nutritional Appearance: overweight HEENT normocephalic, head/scalp atraumatic and moist oral mucous membranes Eyes PERRL, EOMs intact bilaterally and conjunctivae normal Neck no lymphadenopathy, supple and no JVD Neck Narrative: Trachea midline Resp normal respiratory effort, no retractions, no use of accessory muscles and clear to auscultation bilaterally Auscultation: Negative for crackles, rales, rhonchi or wheezes Cardio regular rate, regular rhythm, S1 normal heart sound, S2 normal heart sound, no murmurs, no rub, no gallops, no clicks and no JVD GI normal to inspection, nondistended, normoactive bowel sounds, soft to palpation, non-tender and non-distended Extremity no clubbing, cyanosis or edema Extremity Narrative: Plantar flexion contractures related to his paraplegia Skin skin turgor normal, no jaundice, no petechiae and no mottling Skin Narrative: Sacral wound noted Neuro oriented x3 and CN's II-XII intact bilaterally Neuro Narrative: Bilateral lower extremity complete paraplegia, no upper extremity deficits Sensorium / Orientation: awake and alert Speech: speech normal Psych Psych Narrative: Affect is mildly flat but appropriate given current condition Weight / BMI Weight Weight: 129.3 kg Body Mass Index (BMI) 38.6 ABG / Lab / Microbiology Data Result Diagrams: 04/17/21 06:40 04/17/21 06:40 Laboratory: Laboratory Results - last 24 hr 04/17/21 06:40: WBC 10.1, RBC 4.27 L, Hgb 11.0 L, Hct 35.7 L, MCV 83.6, MCH 25.8 L, MCHC 30.8 L, RDW Std Deviation 45.0 H, RDW Coeff of Darrell 14.7 H, Plt Count 400, MPV 9.7, Immature Gran % (Auto) 0.500, Neut % (Auto) 78.6 H, Lymph % (Auto) 11.7 L, [place]assen % (Auto) 7.6, Eos % (Auto) 0.9, Baso % (Auto) 0.7, Absolute Neuts (auto) 7.9 H, Absolute Lymphs (auto) 1.18, Nucleated RBC % 0 04/17/21 06:40: Sodium 140, Potassium 3.8, Chloride 105, Carbon Dioxide 27.0, Anion Gap 8, BUN 11, Creatinine 0.42 L, Estim Creat Clear Calc 264.31, Est GFR (MDRD) Af Amer 290, Est GFR (MDRD) Non-Af 239, BUN/Creatinine Ratio 25.9 H, Glucose 122 H, Calcium 8.5 Microbiology: Microbiology 04/12/21 14:15 Blood Culture (Wb) - Left Foot Blood Culture - Final No growth in 5 days. 04/12/21 12:50 Blood Culture (Wb) - Anticubital Left Blood Culture - Final No growth in 5 days. 04/12/21 21:30 Wound - Ischium Gram Stain - Final 04/12/21 21:30 Wound - Ischium Wound Culture - Final Klebsiella oxytoca Escherichia coli Staphylococcus aureus Corynebacterium striatum 04/12/21 14:40 Urine, Catheterized Urine Culture - Final Klebsiella oxytoca D/C Instructions Discharge Diet: No restrictions Discharge Activity: Return to Normal Activity Meaningful Use Info Meaningful Use Diagnoses (Choose all that apply): None applicable Discharge Plan Admission Admit Date/Time: 04/12/21 15:40 Primary Reason for Your Visit: Sacral pressure ulcer infection Attending Provider: Chastity Sanchez Primary Care Provider: Lee Andersen Consulting Providers: Víctor Mccallum ; Solitario Granados Instructions Additional Instructions / Restrictions: Please see Porter Maxwell D.O. at [facility] in [facility] on 10 am [phone] -appt is made Discharge Orders/Prescriptions Prescriptions: New ertapenem 1 gram recon soln 1 g IV Q24H 40 Days Qty: 40 RF: 0 Referrals / Follow Up: Lee Andersen MD [Primary Care Provider] - See Referral Note (As needed) Víctor Mccallum MD [STAFF PHYSICIAN] - Within 1 Month Disposition Disposition (needs filled in before D/C Order can be placed): Home Health Service Charges/Coding Visit Charges Inpatient E&M: 58373 Disch Hosp
--- NOTE | 2021-04-17 15:51 | DCINST_ITS ---
Discharge Instructions Diet Discharge Diet: No restrictions Follow Up Care Test Results: Test results from this visit will be discussed in further detail at your follow-up appointment, if applicable. Discharge Plan Admission Admit Date/Time: 04/12/21 15:40 Primary Reason for Your Visit: Sacral pressure ulcer infection Attending Provider: Chastity Sanchez Primary Care Provider: Lee Andersen Consulting Providers: íVctor Mccallum ; Solitario Granados Instructions Additional Instructions / Restrictions: Please see Porter Maxwell D.O. at [facility] in [facility] on 10 am [phone] -appt is made Discharge Orders/Prescriptions Prescriptions: New ertapenem 1 gram recon soln 1 g IV Q24H 40 Days Qty: 40 RF: 0 Referrals / Follow Up: Lee Andersen MD [Primary Care Provider] - See Referral Note (As needed) Víctor Mccallum MD [STAFF PHYSICIAN] - Within 1 Month Disposition Disposition (needs filled in before D/C Order can be placed): Home Health Service
[2021-04-17 16:00] VITALS: BP 135/82; PULSE 80; RESP 16; TEMP 36.6; O2SAT 97
--- NOTE | 2021-04-17 20:22 | PCM.PN.ID ---
Physical Exam Narrative Feeling ok, no fever, no n/v/d Const alert General Appearance: cooperative Resp normal air movement and clear to auscultation bilaterally Cardio regular rate and regular rhythm GI normal to inspection, nondistended, normoactive bowel sounds Skin Skin Narrative: wound vac in place ID ID: Route of nutrition/ use of supplements: [] Nutritional Intake: [] IV Site: [] Lee Catheter: [] Assessment & Plan Assessment/Plan (1) Osteomyelitis of pelvis: PLAN: CT with ongoing osteo, possible abscess. Plastic surgery consulted. Wound cx with MSSA, klebs, diphtheroids. Ucx with small amount klebs. On vanc/cefepime/flagyl. Wbc much improved this admit. Did have some neutropenia while on long course vanc/zosyn at end of February. Completed course with vanc/tori 03/28/21. Pt wants a 2nd surgical opinion. Will send out on 6 weeks ertapenem with weekly labs, ID followup in 2 weeks. Stop date planned for 05/27/21. Will follow
--- NOTE | 2021-04-18 15:25 | CASEMGMT ---
AURORA BUTLER Discharge Follow Up Phone Call: ANGELITO:Niru Strata:3 Call Date: 04/18/21 Discharge Date: 04/17/21 Time of Call:1520 Duration:3 min Admitting Dx:sepsis, wound infection AURORA BUTLER completed follow up phone call after recent hospitalization. Pt states he is going well. He states was there today. He has all supplies for his IV. Pt states his exwife or his nurse will complete the dressing changes on days [facility] is not there. Pt has his appt on Thursday for a second opinion and [facility]. Pt denies any questions regarding his medications or dc instructions.
== END 2021-04-17 19:10 | disposition home health service (06) | DRG 698 ==
LOC: ED 14:50 → MS3 15:18
PROVIDERS: Internal Medicine; Nurse Practitioner Family; Admitting Provider Internal Medicine; Emergency Provider Emergency Medicine; PCP Internal Medicine; Visit Provider Internal Medicine
DX: T83.518A Infection and inflammatory reaction due to other urinary catheter, initial encounter (principal); L89.314 Pressure ulcer of right buttock, stage 4; G82.20 Paraplegia, unspecified; L97.422 Non-pressure chronic ulcer of left heel and midfoot with fat layer exposed; M46.28 Osteomyelitis of vertebra, sacral and sacrococcygeal region; N30.00 Acute cystitis without hematuria; B95.61 Methicillin susceptible Staphylococcus aureus infection as the cause of diseases classified elsewhere; B96.89 Other specified bacterial agents as the cause of diseases classified elsewhere; B96.20 Unspecified Escherichia coli [E. coli] as the cause of diseases classified elsewhere; B96.1 Klebsiella pneumoniae [K. pneumoniae] as the cause of diseases classified elsewhere; K59.00 Constipation, unspecified; E78.5 Hyperlipidemia, unspecified; I10 Essential (primary) hypertension; F17.210 Nicotine dependence, cigarettes, uncomplicated; E66.9 Obesity, unspecified; Z86.14 Personal history of Methicillin resistant Staphylococcus aureus infection; Z87.440 Personal history of urinary (tract) infections
CPT/HCPCS: 36415; 36569; 71045; 73630; 74177; 80048; 80053; 80202; 81001; 82550; 83605; 83735; 84100; 85025; 85610; 85730; 87040; 87070; 87077; 87086; 87088; 87186; 87205; 87640; 93005; 99251; 99285; J7030; J7040; J7050; P9612; Q9967; A4216; G0463

== ENCOUNTER → 2021-05-06 11:00 | Outpatient (CLI) | payer MEDICARE, SELFPAY ==
[2021-05-06] MEDS: Alteplase 2 MG/2 ML Vial IV ×2 (11:35)
[2021-05-06 13:25] LABS: Erythrocyte Sedimentation Rate 55 mm/hr (0-20)
[2021-05-06 13:29] LABS: Absolute Lymphocyte Count 1.58 X10^3/uL (0.83-4.51); Absolute Neutrophil Count 12.9 X10^3/uL (2.0-7.7); Basophil# 0.06 X10^3/uL; Basophil% 0.4 % (0-1); Eosinophil# 0.12 X10^3/uL; Eosinophils% 0.8 % (0-5); Hematocrit 39.7 % (40-54); Hemoglobin 12.2 g/dL (13.0-16.5); Lymphocyte # 1.58 X10^3/ul (0.83-4.51); Lymphocyte % 10.1 % (19-41); Mean Corp Hgb Conc 30.7 g/dL (32-36); Mean Corpuscular Hgb 24.8 pg (27.0-32.0); Mean Corpuscular Volume 80.9 fL (80-94); Mean Platelet Vol. 10.7 fl (6.2-12.0); Monocyte# 0.91 X10^3/uL; Monocyte% 5.8 % (0-10); NRBC Flagged by Analyzer 0 % (0-5); Neutrophil % 82.5 % (47-70); POSITIVE COUNT YES; Platelet Count 263 K/mm3 (150-450); RBC Distribution Width CV 14.9 % (11.6-14.6); RBC Distribution Width SD 43.7 fl (35.1-43.9); Red Blood Count 4.91 M/mm3 (4.6-6.2); White Blood Count 15.6 K/mm3 (4.4-11.0)
[2021-05-06 13:30] LABS: Differential Indicated SCAN CRITERIA MET
[2021-05-06 13:33] LABS: Anion Gap 5 (5-15); BUN 12 mg/dL (7-18); Calcium,Total 9.1 mg/dL (8.5-10.1); Chloride 101 mmol/L (98-107); Creatinine, Serum 0.46 mg/dL (0.70-1.30); EST Glomerular Filtration Rate 217 mL/min (>60); Est Glom Filt Rate - Afr Amer 263 mL/min (>60); Glucose 123 mg/dL (74-106); Potassium 4.1 mmol/L (3.5-5.1); Sodium Level 135 mmol/L (136-145)
[2021-05-06 14:09] LABS: Platelet Estimate ADEQUATE (ADEQ); Red Cell Morphology NORM C+C NORMAL (NORM C&C)
[2021-05-10 11:32] LABS: AST(SGOT) 28 U/L (15-37); Alanine Aminotransfer ALT/SGPT 66 U/L (16-61); Albumin, Serum 2.9 g/dL (3.2-5.0); Alkaline Phosphatase 170 U/L (45-117); Globulin 4.9 g/dL (2.2-4.2); Protein, Total 7.8 g/dL (6.4-8.2)
== END ==
PROVIDERS: PCP Internal Medicine; Referring Provider Internal Medicine Infectious Disease; Visit Provider Internal Medicine Infectious Disease
DX: A41.9 Sepsis, unspecified organism (principal); L89.109 Pressure ulcer of unspecified part of back, unspecified stage; Z79.2 Long term (current) use of antibiotics
CPT/HCPCS: 96374; 36592; 36593; 80048; 80076; 85025; 85652; J2997; A4216

== ENCOUNTER 2021-05-13 12:14 | Outpatient (RCR) | payer MEDICARE, SELFPAY ==
[2021-04-23 12:37] LABS: Erythrocyte Sedimentation Rate 93 mm/hr (0-20)
[2021-04-23 12:39] LABS: Hematocrit 40.3 % (40-54); Mean Corp Hgb Conc 29.8 g/dL (32-36); Mean Corpuscular Hgb 24.7 pg (27.0-32.0); Mean Corpuscular Volume 82.9 fL (80-94); Mean Platelet Vol. 10.5 fl (6.2-12.0); Platelet Count 510 K/mm3 (150-450); RBC Distribution Width SD 45.3 fl (35.1-43.9); Red Blood Count 4.86 M/mm3 (4.6-6.2); White Blood Count 10.8 K/mm3 (4.4-11.0)
[2021-04-23 12:43] LABS: AST(SGOT) 15 U/L (15-37); Alanine Aminotransfer ALT/SGPT 51 U/L (16-61); Albumin, Serum 2.8 g/dL (3.2-5.0); Alkaline Phosphatase 147 U/L (45-117); Anion Gap 8 (5-15); BUN 13 mg/dL (7-18); BUN/Creat Ratio 20.5 RATIO (10-20); Calcium,Total 9.1 mg/dL (8.5-10.1); Chloride 100 mmol/L (98-107); Creatinine, Serum 0.63 mg/dL (0.70-1.30); EST Glomerular Filtration Rate 150 mL/min (>60); Est Glom Filt Rate - Afr Amer 182 mL/min (>60); Globulin 5.3 g/dL (2.2-4.2); Glucose 160 mg/dL (74-106); Potassium 4.3 mmol/L (3.5-5.1); Protein, Total 8.1 g/dL (6.4-8.2); Sodium Level 138 mmol/L (136-145)
[2021-04-29 14:11] LABS: Erythrocyte Sedimentation Rate 77 mm/hr (0-20)
[2021-04-29 14:14] LABS: Hematocrit 38.5 % (40-54); Hemoglobin 11.6 g/dL (13.0-16.5); Mean Corp Hgb Conc 30.1 g/dL (32-36); Mean Corpuscular Hgb 24.9 pg (27.0-32.0); Mean Corpuscular Volume 82.6 fL (80-94); Mean Platelet Vol. 10.5 fl (6.2-12.0); Platelet Count 442 K/mm3 (150-450); RBC Distribution Width CV 14.9 % (11.6-14.6); RBC Distribution Width SD 44.7 fl (35.1-43.9); Red Blood Count 4.66 M/mm3 (4.6-6.2)
[2021-04-29 14:17] LABS: AST(SGOT) 14 U/L (15-37); Alanine Aminotransfer ALT/SGPT 46 U/L (16-61); Albumin, Serum 2.8 g/dL (3.2-5.0); Alkaline Phosphatase 145 U/L (45-117); Anion Gap 6 (5-15); BUN 13 mg/dL (7-18); BUN/Creat Ratio 26.5 RATIO (10-20); Bilirubin, Direct 0.07 mg/dL (0.00-0.30); Calcium,Total 8.8 mg/dL (8.5-10.1); Chloride 103 mmol/L (98-107); Creatinine, Serum 0.49 mg/dL (0.70-1.30); EST Glomerular Filtration Rate 202 mL/min (>60); Est Glom Filt Rate - Afr Amer 245 mL/min (>60); Globulin 4.7 g/dL (2.2-4.2); Glucose 126 mg/dL (74-106); Potassium 4.1 mmol/L (3.5-5.1); Protein, Total 7.5 g/dL (6.4-8.2); Sodium Level 138 mmol/L (136-145)
[2021-05-13 12:39] LABS: Erythrocyte Sedimentation Rate 78 mm/hr (0-20)
[2021-05-13 12:40] LABS: Hematocrit 38.4 % (40-54); Hemoglobin 11.5 g/dL (13.0-16.5); Mean Corp Hgb Conc 29.9 g/dL (32-36); Mean Corpuscular Hgb 24.3 pg (27.0-32.0); Mean Corpuscular Volume 81.2 fL (80-94); Mean Platelet Vol. 10.9 fl (6.2-12.0); Platelet Count 402 K/mm3 (150-450); RBC Distribution Width CV 15.2 % (11.6-14.6); RBC Distribution Width SD 44.7 fl (35.1-43.9); Red Blood Count 4.73 M/mm3 (4.6-6.2); White Blood Count 12.2 K/mm3 (4.4-11.0)
[2021-05-13 12:54] LABS: AST(SGOT) 18 U/L (15-37); Alanine Aminotransfer ALT/SGPT 59 U/L (16-61); Albumin, Serum 2.7 g/dL (3.2-5.0); Alkaline Phosphatase 169 U/L (45-117); Anion Gap 8 (5-15); BUN 10 mg/dL (7-18); BUN/Creat Ratio 21.5 RATIO (10-20); Bilirubin, Direct 0.06 mg/dL (0.00-0.30); Calcium,Total 9.1 mg/dL (8.5-10.1); Chloride 101 mmol/L (98-107); Creatinine, Serum 0.47 mg/dL (0.70-1.30); EST Glomerular Filtration Rate 215 mL/min (>60); Est Glom Filt Rate - Afr Amer 260 mL/min (>60); Globulin 4.9 g/dL (2.2-4.2); Glucose 167 mg/dL (74-106); Potassium 4.4 mmol/L (3.5-5.1); Protein, Total 7.6 g/dL (6.4-8.2); Sodium Level 137 mmol/L (136-145)
== END 2021-05-19 02:38 | disposition home or self-care (01) ==
LOC: HHLAB 12:14
PROVIDERS: PCP Internal Medicine; Visit Provider Internal Medicine Infectious Disease
DX: Z00.00 Encounter for general adult medical examination without abnormal findings (principal); E11.9 Type 2 diabetes mellitus without complications; L98.419 Non-pressure chronic ulcer of buttock with unspecified severity; Z51.81 Encounter for therapeutic drug level monitoring
CPT/HCPCS: 80048; 80076; 85027; 85652

== ENCOUNTER 2021-05-21 18:37 | Outpatient (RCR) | payer MEDICARE, SELFPAY ==
[2021-05-21 19:17] LABS: Hematocrit 34.7 % (40-54); Hemoglobin 10.3 g/dL (13.0-16.5); Mean Corp Hgb Conc 29.7 g/dL (32-36); Mean Corpuscular Hgb 24.2 pg (27.0-32.0); Mean Corpuscular Volume 81.5 fL (80-94); Mean Platelet Vol. 11.2 fl (6.2-12.0); Platelet Count 396 K/mm3 (150-450); RBC Distribution Width CV 15.6 % (11.6-14.6); RBC Distribution Width SD 46.4 fl (35.1-43.9); Red Blood Count 4.26 M/mm3 (4.6-6.2); White Blood Count 11.9 K/mm3 (4.4-11.0)
[2021-05-21 19:32] LABS: AST(SGOT) 28 U/L (15-37); Alanine Aminotransfer ALT/SGPT 83 U/L (16-61); Albumin, Serum 2.7 g/dL (3.2-5.0); Alkaline Phosphatase 176 U/L (45-117); Anion Gap 5 (5-15); BUN 18 mg/dL (7-18); BUN/Creat Ratio 34.6 RATIO (10-20); Bilirubin, Direct 0.11 mg/dL (0.00-0.30); Calcium,Total 9.2 mg/dL (8.5-10.1); Chloride 100 mmol/L (98-107); Creatinine, Serum 0.52 mg/dL (0.70-1.30); EST Glomerular Filtration Rate 189 mL/min (>60); Est Glom Filt Rate - Afr Amer 229 mL/min (>60); Globulin 4.9 g/dL (2.2-4.2); Glucose 165 mg/dL (74-106); Protein, Total 7.6 g/dL (6.4-8.2); Sodium Level 134 mmol/L (136-145)
[2021-05-21 19:42] LABS: Erythrocyte Sedimentation Rate 51 mm/hr (0-20)
== END 2021-06-18 23:59 ==
LOC: HHLAB 18:37
PROVIDERS: PCP Internal Medicine; Visit Provider Internal Medicine Infectious Disease
DX: Z00.00 Encounter for general adult medical examination without abnormal findings (principal); E11.9 Type 2 diabetes mellitus without complications; L98.419 Non-pressure chronic ulcer of buttock with unspecified severity; Z51.81 Encounter for therapeutic drug level monitoring
CPT/HCPCS: 80048; 80076; 85027; 85652

== ENCOUNTER → 2021-10-21 | Outpatient (REF) | payer SELFPAY ==
[2021-10-21 13:25] LABS: Absolute Lymphocyte Count 1.76 X10^3/uL (0.83-4.51); Absolute Neutrophil Count 6.7 X10^3/uL (2.0-7.7); Basophil# 0.06 X10^3/uL; Basophil% 0.6 % (0-1); Eosinophil# 0.38 X10^3/uL; Eosinophils% 3.9 % (0-5); Hematocrit 31.2 % (40-54); Hemoglobin 9.1 g/dL (13.0-16.5); Lymphocyte # 1.76 X10^3/ul (0.83-4.51); Mean Corp Hgb Conc 29.2 g/dL (32-36); Mean Corpuscular Hgb 22.7 pg (27.0-32.0); Mean Corpuscular Volume 77.8 fL (80-94); Mean Platelet Vol. 10.4 fl (6.2-12.0); Monocyte# 0.78 X10^3/uL; NRBC Flagged by Analyzer 0 % (0-5); Neutrophil # 6.69 X10^3/uL (2.7-7.7); Neutrophil % 68.6 % (47-70); Platelet Count 394 K/mm3 (150-450); RBC Distribution Width SD 55.8 fl (35.1-43.9); Red Blood Count 4.01 M/mm3 (4.6-6.2); White Blood Count 9.8 K/mm3 (4.4-11.0)
[2021-10-21 13:52] LABS: Creatinine, Serum 0.54 mg/dL (0.70-1.30); EST Glomerular Filtration Rate 182 mL/min (>60); Est Glom Filt Rate - Afr Amer 220 mL/min (>60); Vancomycin, Trough Level 12.4 ug/mL (5.0-15.0)
== END | disposition home or self-care (01) ==
LOC: OLS.SW1020 04:00
PROVIDERS: PCP Internal Medicine; Referring Provider Family Medicine; Visit Provider Family Medicine
DX: B99.9 Unspecified infectious disease (principal); Z79.2 Long term (current) use of antibiotics
CPT/HCPCS: 36415; 80202; 82565; 85025; 86140

== ENCOUNTER → 2021-10-22 | Outpatient (REF) | payer SELFPAY ==
[2021-10-22 10:44] LABS: Anion Gap 5 (5-15); BUN 15 mg/dL (7-18); BUN/Creat Ratio 33.5 RATIO (10-20); Calcium,Total 8.3 mg/dL (8.5-10.1); Chloride 106 mmol/L (98-107); Creatinine, Serum 0.45 mg/dL (0.70-1.30); EST Glomerular Filtration Rate 224 mL/min (>60); Est Glom Filt Rate - Afr Amer 271 mL/min (>60); Glucose 133 mg/dL (74-106); Potassium 4.3 mmol/L (3.5-5.1); Sodium Level 137 mmol/L (136-145)
== END | disposition home or self-care (01) ==
LOC: OLS.SW1020 05:45
PROVIDERS: PCP Internal Medicine; Visit Provider Family Medicine
DX: Z79.899 Other long term (current) drug therapy (principal)
CPT/HCPCS: 80048

== ENCOUNTER → 2021-10-28 | Outpatient (REF) | payer SELFPAY ==
[2021-10-28 13:36] LABS: Absolute Lymphocyte Count 1.83 X10^3/uL (0.83-4.51); Basophil# 0.06 X10^3/uL; Basophil% 0.7 % (0-1); Eosinophil# 0.36 X10^3/uL; Hematocrit 35.4 % (40-54); Hemoglobin 10.6 g/dL (13.0-16.5); Lymphocyte # 1.83 X10^3/ul (0.83-4.51); Lymphocyte % 20.3 % (19-41); Mean Corp Hgb Conc 29.9 g/dL (32-36); Mean Corpuscular Hgb 23.7 pg (27.0-32.0); Mean Platelet Vol. 11.1 fl (6.2-12.0); Monocyte# 0.74 X10^3/uL; Monocyte% 8.2 % (0-10); NRBC Flagged by Analyzer 0 % (0-5); Neutrophil # 5.99 X10^3/uL (2.7-7.7); Neutrophil % 66.2 % (47-70); POSITIVE COUNT YES; POSITIVE MORPHOLOGY YES; Platelet Count 242 K/mm3 (150-450); RBC Distribution Width CV 21.5 % (11.6-14.6); RBC Distribution Width SD 60.3 fl (35.1-43.9); Red Blood Count 4.48 M/mm3 (4.6-6.2)
[2021-10-28 13:41] LABS: Differential Indicated SCAN CRITERIA MET
[2021-10-28 13:59] LABS: Anisocytosis 1+; Platelet Estimate ADEQUATE (ADEQ)
[2021-10-28 14:03] LABS: Anion Gap 6 (5-15); BUN 14 mg/dL (7-18); BUN/Creat Ratio 41.3 RATIO (10-20); Calcium,Total 8.8 mg/dL (8.5-10.1); Chloride 107 mmol/L (98-107); Creatinine, Serum 0.34 mg/dL (0.70-1.30); EST Glomerular Filtration Rate 309 mL/min (>60); Est Glom Filt Rate - Afr Amer 374 mL/min (>60); Glucose 115 mg/dL (74-106); Potassium 4.4 mmol/L (3.5-5.1); Sodium Level 136 mmol/L (136-145)
[2021-10-28 14:06] LABS: Vancomycin, Trough Level 13.1 ug/mL (5.0-15.0)
== END | disposition home or self-care (01) ==
LOC: OLS.SW1020 12:00
PROVIDERS: PCP Internal Medicine; Visit Provider Family Medicine
DX: D18.09 Hemangioma of other sites (principal); L89.210 Pressure ulcer of right hip, unstageable; L02.215 Cutaneous abscess of perineum; Z48.817 Encounter for surgical aftercare following surgery on the skin and subcutaneous tissue
CPT/HCPCS: 36415; 80048; 80202; 85025; 86140

== ENCOUNTER → 2021-11-04 | Outpatient (REF) | payer SELFPAY ==
[2021-11-04 13:56] LABS: Absolute Lymphocyte Count 1.78 X10^3/uL (0.83-4.51); Absolute Neutrophil Count 5.3 X10^3/uL (2.0-7.7); Basophil# 0.05 X10^3/uL; Basophil% 0.6 % (0-1); Eosinophil# 0.36 X10^3/uL; Eosinophils% 4.4 % (0-5); Hematocrit 34.5 % (40-54); Hemoglobin 10.5 g/dL (13.0-16.5); Lymphocyte # 1.78 X10^3/ul (0.83-4.51); Lymphocyte % 21.7 % (19-41); Mean Corp Hgb Conc 30.4 g/dL (32-36); Mean Corpuscular Hgb 24.2 pg (27.0-32.0); Mean Corpuscular Volume 79.7 fL (80-94); Mean Platelet Vol. 10.8 fl (6.2-12.0); Monocyte# 0.68 X10^3/uL; Monocyte% 8.3 % (0-10); NRBC Flagged by Analyzer 0 % (0-5); Neutrophil % 64.6 % (47-70); POSITIVE MORPHOLOGY YES; Platelet Count 280 K/mm3 (150-450); RBC Distribution Width CV 21.1 % (11.6-14.6); RBC Distribution Width SD 60.4 fl (35.1-43.9); Red Blood Count 4.33 M/mm3 (4.6-6.2); White Blood Count 8.2 K/mm3 (4.4-11.0)
[2021-11-04 14:03] LABS: Differential Indicated SCAN CRITERIA MET
[2021-11-04 14:04] LABS: Anion Gap 6 (5-15); BUN 16 mg/dL (7-18); BUN/Creat Ratio 40.1 RATIO (10-20); Calcium,Total 8.5 mg/dL (8.5-10.1); Chloride 103 mmol/L (98-107); EST Glomerular Filtration Rate 256 mL/min (>60); Est Glom Filt Rate - Afr Amer 310 mL/min (>60); Glucose 143 mg/dL (74-106); Potassium 4.3 mmol/L (3.5-5.1); Sodium Level 136 mmol/L (136-145)
[2021-11-04 15:42] LABS: Differential Comment SCANNED
== END | disposition home or self-care (01) ==
LOC: OLS.SW1020 05:00
PROVIDERS: PCP Internal Medicine; Referring Provider Internal Medicine; Visit Provider Family Medicine
DX: M86.9 Osteomyelitis, unspecified (principal); G82.20 Paraplegia, unspecified; Z79.899 Other long term (current) drug therapy
CPT/HCPCS: 36415; 80048; 80202; 85025; 86140

== ENCOUNTER → 2021-11-11 | Outpatient (REF) | payer SELFPAY ==
[2021-11-11 09:20] LABS: Vancomycin, Random Level 11.9 ug/mL (0.0-15.0)
[2021-11-11 13:57] LABS: Absolute Lymphocyte Count 1.69 X10^3/uL (0.83-4.51); Absolute Neutrophil Count 6.4 X10^3/uL (2.0-7.7); Basophil# 0.05 X10^3/uL; Basophil% 0.5 % (0-1); Eosinophil# 0.31 X10^3/uL; Eosinophils% 3.4 % (0-5); Hematocrit 37.6 % (40-54); Hemoglobin 11.3 g/dL (13.0-16.5); Lymphocyte # 1.69 X10^3/ul (0.83-4.51); Lymphocyte % 18.5 % (19-41); Mean Corp Hgb Conc 30.1 g/dL (32-36); Mean Corpuscular Hgb 24.7 pg (27.0-32.0); Mean Corpuscular Volume 82.1 fL (80-94); Mean Platelet Vol. 10.9 fl (6.2-12.0); Monocyte# 0.69 X10^3/uL; Monocyte% 7.5 % (0-10); NRBC Flagged by Analyzer 0 % (0-5); Neutrophil # 6.38 X10^3/uL (2.7-7.7); Neutrophil % 69.8 % (47-70); POSITIVE MORPHOLOGY YES; Platelet Count 286 K/mm3 (150-450); RBC Distribution Width CV 20.7 % (11.6-14.6); RBC Distribution Width SD 61.2 fl (35.1-43.9); Red Blood Count 4.58 M/mm3 (4.6-6.2); White Blood Count 9.2 K/mm3 (4.4-11.0)
[2021-11-11 14:03] LABS: Differential Indicated SCAN CRITERIA MET
[2021-11-11 14:05] LABS: Anion Gap 6 (5-15); BUN 16 mg/dL (7-18); BUN/Creat Ratio 32.7 RATIO (10-20); Calcium,Total 8.5 mg/dL (8.5-10.1); Chloride 108 mmol/L (98-107); Creatinine, Serum 0.49 mg/dL (0.70-1.30); EST Glomerular Filtration Rate 202 mL/min (>60); Est Glom Filt Rate - Afr Amer 244 mL/min (>60); Glucose 155 mg/dL (74-106); Sodium Level 138 mmol/L (136-145)
== END | disposition home or self-care (01) ==
LOC: OLS.SW500 00:45
PROVIDERS: PCP Internal Medicine; Visit Provider Family Medicine
DX: Z79.899 Other long term (current) drug therapy (principal)
CPT/HCPCS: 80048; 80202; 85025; 86140